=== PATIENT | female | born 1945 | race Caucasian/White ===

== ENCOUNTER → 2016-11-02 | Outpatient (CLI) | payer OTHER ==
[~2016-11-02] MED LIST: ALBUAER19 INH; ASPEC81 PO; ATOR-22 PO; BIMA0.01 OPB; BRIN1SUS OPB; CEPH500C2 PO; CFT250 PO; CHOL100010 PO; CHOL100027 PO; CYAN10005 PO; DICL-201 PO; ELQ25 PO; FRS/40 PO; FURO40TA3 PO; GFNSR600 PO; GLUC1TAB8 PO; LEVE500T13 PO; LEVO-371 PO; LSN20 PO; METO200T29 PO; OMEP20CA9 PO; POTA99TA PO; PRED10TA PO; RBTUDL5 PO; SDMC1 PO; TPRSR50 PO
== END | disposition home or self-care (01) ==
LOC: C.CTS 13:57
PROVIDERS: ATTEND Orthopaedic Surgery
DX: M25.511 Pain in right shoulder (principal); M19.011 Primary osteoarthritis, right shoulder

== ENCOUNTER 2016-12-13 09:24 | Inpatient (IN) | payer OTHER ==
[~2016-12-13] VITALS: Ht 154.9 cm; Wt 89.7 kg
[~2016-12-13 09:24] MED LIST changes: -ALBUAER19 INH; -BIMA0.01 OPB; -CFT250 PO; -CHOL100027 PO; -CYAN10005 PO; -ELQ25 PO; -FURO40TA3 PO; -GFNSR600 PO; -GLUC1TAB8 PO; -OMEP20CA9 PO; -PRED10TA PO; -RBTUDL5 PO; -SDMC1 PO; -TPRSR50 PO
[2016-12-13] MEDS ORDERED: DILTIAZEM BOLUS / DRIP IV STA ×2 (09:43→12:46)
--- NOTE | 2016-12-13 09:44 | EMERGENCY ROOM VISIT NOTE ---
History Report prepared by Grace: Hallie Enrique Under the Supervision of: Dr. Patty Correa D.O. First contact with patient: 09:31 Chief Complaint: CARDIAC ASSESSMENT Stated Complaint: NEW ONSET A-FIB History of Present Illness The patient is a 71 year old female who presents to the Emergency Room with complaints of persistent heart fluttering that began last evening. The patient states that she was at [facility] waiting to have her cholecystectomy. She states that she was properly prepped, but states that she was found to be in atrial fibrillation. The patient states that she had it once in the past when she was in the hospital, but states that she never heard anything of it again. She states that over the past week she has been feeling dizzy and lightheaded with leaning over and with exertion. The patient additionally states that she experienced heart burn yesterday that she alleviated with gautam seltzer. She states that she has experienced shortness of breath with exertion in recent weeks and that was part of why she had to be cleared by cardiology for surgery. The patient states that there is a family history of heart disease. She denies following with cardiology. The patient states that she recently had an echocardiogram. She denies any fever, cough, cold, abdominal pain, swelling in her lower extremities, urinary symptoms, or change in her bowel movements. Per review from the patient's records from [facility], the patient was seen by Dr. Marshall and had a Dobutamine stress test earilier this month that was negative. They also mention that the patient had a single episode of atrial fibrillation in 2014 in the setting of an acute illness. Source of History: patient Onset: last evening Position: other (heart) Quality: other (fluttering) Timing: other (persistent) Associated Symptoms: + SOB, No fevers, No cough, No abdominal pain, No urinary symptoms Note: Associated Symptoms: dizzy, lightheaded, heart burn Review of Systems See HPI for pertinent positives & negatives. A total of 10 systems reviewed and were otherwise negative. Past Medical & Surgical Medical Problems: (1) Atrial fibrillation (2) HTN (hypertension) (3) Pituitary adenoma (4) Seizure disorder (5) SIADH (syndrome of inappropriate ADH production) Surgical Problems: (1) H/O dilation and curettage (2) Hx of cataract surgery (3) S/P surgery on nasal septum (4) S/P tonsillectomy and adenoidectomy (5) S/P tubal ligation Family History Seizures Social History Smoking Status: Former Smoker Alcohol Use: none Drug Use: none Marital Status: Housing Status: lives with significant other Occupation Status: retired Current/Historical Medications Scheduled Aspirin (Aspirin EC Low Dose), 81 MG PO QAM Atorvastatin (Lipitor), 20 MG PO QAM Brinzolamide Oph (Azopt Oph), 1 DROP OPB BID Cholecalciferol (Vitamin D), 1 TAB PO QAM Diclofenac (Voltaren), 75 MG PO BID Levetiracetam (Keppra), 500 MG PO BID Levocetirizine Dihydrochloride (Xyzal), 1 TAB PO HS Lisinopril (Lisinopril), 20 MG PO QAM Metoprolol Succinate (Toprol Xl), 200 MG PO QAM Omeprazole (Prilosec), 20 MG PO DAILY Potassium (Potassium), 99 MG PO TID Scheduled PRN Furosemide (Lasix), 1 TAB PO DAILY PRN for edema Allergies Coded Allergies: Phenytoin (Verified Allergy, Intermediate, HIVES AND MOUTH ULCERS, 12/13/16 ) Dust (Verified Allergy, Mild, 12/13/16) Hydrochlorothiazide (Verified Allergy, Unknown, SEE COMMENT, 12/13/16) PT NOT SURE REACTION - PT PRINT OUT FROM [employer] REPORTS HYPONATREMIA Furosemide (Unverified Adverse Reaction, Intermediate, RASH, 12/13/16) developed erthyemaotu rash on face, back and legs: probably due to lasix as per dermatology PT CURRENTLY ON LASIX AND NO PROBLEMS WITH RASH Codeine (Verified Adverse Reaction, Mild, VOMITTING, 12/14/16) Sulfamethoxazole w/Trimethoprim (Unverified Adverse Reaction, Unknown, "FEELS LIKE KNIVES ARE IN MY HEAD", 12/13/16) Physical Exam Vital Signs Date Time Temp Pulse Resp B/P (MAP) Pulse Ox O2 Delivery O2 Flow Rate FiO2 12/13/16 11:37 65 143/110 12/13/16 10:36 59 16 131/53 97 Room Air 12/13/16 10:18 109 16 145/108 95 Room Air 12/13/16 09:30 98 Room Air 12/13/16 09:30 90 12/13/16 09:30 36.7 99 20 168/100 98 Room Air Physical Exam GENERAL: alert, well appearing, well nourished, no distress, non-toxic EYE EXAM: normal conjunctiva, PERRL and EOM's grossly intact OROPHARYNX: no exudate, no erythema, lips, buccal mucosa, and tongue normal and mucous membranes are moist NECK: supple, no nuchal rigidity, no adenopathy, non-tender LUNGS: Clear to auscultation. Normal chest wall mechanics HEART: Heart sounds are fast and irregular ABDOMEN: abdomen soft, non-tender, normo-active bowel sounds, no masses, no rebound or guarding. BACK: Back is symmetrical on inspection and there is no deformity, no midline tenderness, no CVA tenderness. SKIN: no rashes and no bruising UPPER EXTREMITIES: upper extremities are grossly normal. LOWER EXTREMITIES: No pitting edema. NEURO EXAM: Normal sensorium, cranial nerves II-XII grossly intact, normal speech, no gross weakness of arms, no gross weakness of legs. Medical Decision & Procedures ER Provider Diagnostic Interpretation: Radiology results have been interpreted by the radiologist and reviewed by me. CHEST ONE VIEW PORTABLE CLINICAL HISTORY: 71 years-old Female presenting with chest pain. TECHNIQUE: Portable upright AP view of the chest was obtained. COMPARISON: 11/02/2016. FINDINGS: Cardiomediastinal silhouette normal. Lungs and pleural spaces clear. Osseous structures normal. Upper abdomen normal. IMPRESSION: 1. No acute cardiopulmonary disease. Electronically signed by: Abdullahi Bar M.D. 12/13/2016 10:00 AM Dictated Date/Time: 12/13/2016 10:00 AM Laboratory Results Test 12/13/16 09:50 12/13/16 12:27 Neutrophils % (Manual) 48.7 % Lymphocytes % (Manual) 31.3 % Variant Lymphocytes % (manual) 13.0 % Monocytes % (Manual) 7.0 % Neutrophils # (Manual) 7.63 K/uL (1.4-6.5) Total Absolute Neutrophils 7.63 K/uL (1.4-6.5) Lymphocytes # (Manual) 4.90 K/uL (1.2-3.4) Absolute Variant Lymphocytes 2.04 K/uL Total Absolute Lymphocytes 6.94 K/uL (1.2-3.4) Monocytes # (Manual) 1.10 K/uL (0.11-0.59) Blood Smear Review Echinocytes 1+ Prothrombin Time 11.5 SECONDS (9.0-12.0) Prothromb Time International Ratio 1.1 (0.9-1.1) Magnesium Level 2.3 mg/dl (1.8-2.4) Total Bilirubin 1.2 mg/dl (0.2-1) Aspartate Amino Transf (AST/SGOT) 32 U/L (15-37) Alanine Aminotransferase (ALT/SGPT) 180 U/L (12-78) Alkaline Phosphatase 92 U/L (45-117) Pro-B-Type Natriuretic Peptide 5970 pg/ml (0-900) Total Protein 6.9 gm/dl (6.4-8.2) Albumin 3.5 gm/dl (3.4-5.0) Globulin 3.4 gm/dl (2.5-4.0) Albumin/Globulin Ratio 1.0 (0.9-2) Lipase 138 U/L (73-393) Thyroid Stimulating Hormone (TSH) 2.110 uIu/ml (0.300-4.500) Chemistry Specimen Hemolysis Lyme Disease IgG Antibody NEG (NEG) Lyme Disease IgM Antibody NEG (NEG) Urine Color YELLOW Urine Appearance CLOUDY (CLEAR) Urine pH 7.5 (4.5-7.5) Urine Specific Marlow 1.015 (1.000-1.030) Urine Protein NEG (NEG) Urine Glucose (UA) NEG (NEG) Urine Ketones NEG (NEG) Urine Occult Blood NEG (NEG) Urine Nitrite NEG (NEG) Urine Bilirubin NEG (NEG) Urine Urobilinogen NEG (NEG) Urine Leukocyte Esterase TRACE (NEG) Urine WBC (Auto) 1-5 /hpf (0-5) Urine RBC (Auto) 0-4 /hpf (0-4) Urine Hyaline Casts (Auto) 0 /lpf (0-5) Urine Epithelial Cells (Auto) >30 /lpf (0-5) Urine Bacteria (Auto) NEG (NEG) Laboratory results per my review. Medications Administered Medications (Trade) Dose Ordered Sig/Nellie Route Start Time Stop Time Status Last Admin Dose Admin Diltiazem HCl 125 mg/Dextrose 125 ml @ 0 mls/hr Q0M PRN IV 12/13/16 10:00 12/13/16 14:37 DC 12/13/16 10:16 5 MLS/HR Heparin Sodium/ Dextrose 1 ea NOW STAT N/A 12/13/16 11:35 12/13/16 11:36 DC 12/13/16 14:30 1 EA Heparin Sodium/ Dextrose (Heparin 25,000 Unit/500ml D5W) 25,000 unit STK-MED ONCE .ROUTE 12/13/16 12:16 12/13/16 12:17 DC 12/13/16 12:53 25,000 UNIT Heparin Sodium (Porcine) (Heparin Sq 5000 Unit/0.5ml) 5,000 unit STK-MED ONCE .ROUTE 12/13/16 12:16 12/13/16 12:17 DC 12/13/16 12:54 5,000 UNIT ECG Indication: other (atrial fibrillation) Rate (beats per minute): 96 Rhythm: atrial fibrillation Findings: PVC (occasional), T-wave inversion (lead 1, 2 AVF V2-V6), other ( normal QRS, normal QTC ) Comparison ECG Date: 11/02/16 Change: When compared to EKG done on 11/02/16 atrial fibrillation is new and T wave inversions are noted on the prior EKG. ED Course 0932: The patient was evaluated in room A3. A complete history and physical exam was performed. 1000: Ordered Diltiazem HCl 125 mg/Dextrose 125 ml @ 0 mls/hr Protocol IV. 1132: I discussed the patients case with Norma Hightower PA-C. She is going to evaluate the patient for further treatment. 1135: Ordered Heparin Sodium/Dextrose 1 ea NA. 1141: I reevaluated the patient and she is resting comfortably. I discussed the exam findings with her and I discussed the treatment plan. She verbalized complete understanding and agreement. She is going to be evaluated for further treatment. 1216: Ordered Heparin Sodium (Porcine) 5000 unit .route, Heparin Sodium/ Dextrose 96906 unit .route. Medical Decision Differential diagnosis: Etiologies such as premature contractions, electrolyte abnormality, cardiac dysrhythmia, thyroid dysfunction, pulmonary embolism, infection, gastrointestinal, as well as others were entertained. Pt well appearing from pre-op for elective outpt surgery with new onset a.fib with RVR. Pt minimally symptomatic, VS stable, started on cardizem drip and heparin drip. No obvious infectious etiology, leukocytosis possibly stress reaction. Discussed with hospitalist for additional evaluation. Records from recent pre-op cards clearance reviewed. Doubt vascular etiology, doubt perf, no evidence of acute thyroid dysfunction, doubt bacteremia/sepsis. Medication Reconcilliation Current Medication List: was personally reviewed by me Blood Pressure Screening Patient's blood pressure: Elevated blood pressure Blood pressure disposition: Elevated BP felt to be situational, Did not require urgent referral Consults Time Called: 1131 Consulting Physician: Norma Hightower PA-C Returned Call: 1132 I discussed the patients case with Norma Hightower PA-C. She is going to evaluate the patient for further treatment. Impression Primary Impression: New onset atrial fibrillation Additional Impressions: Elevated brain natriuretic peptide (BNP) level Leukocytosis Critical Care I have personally spent 35 minutes of critical care time in the direct management of this patient. This includes bedside care, interpretation of diagnostic studies, and testing, discussion with consultants, patient, and family members, and other required patient management activities. This 35 minutes is in excess of all separately billable procedures. Scribe Attestation The scribe's documentation has been prepared under my direction and personally reviewed by me in its entirety. I confirm that the note above accurately reflects all work, treatment, procedures, and medical decision making performed by me. Departure Information Dispostion Being Evaluated By Hospitalist Referrals Wilfredo Liang M.D. (PCP) Problem Qualifiers Additional Impressions: Leukocytosis Leukocytosis type: unspecified Qualified Codes: D72.829 - Elevated white blood cell count, unspecified
[2016-12-13] MEDS ORDERED: DILTIAZEM HCL INJ 125 MG in DEXTROSE 5% 100ML IV PRN ×2 (10:00→14:45)
--- NOTE | 2016-12-13 10:02 | DIAGNOSTIC IMAGING REPORT ---
CHEST ONE VIEW PORTABLE CLINICAL HISTORY: 71 years-old Female presenting with chest pain. TECHNIQUE: Portable upright AP view of the chest was obtained. COMPARISON: 11/02/2016. FINDINGS: Cardiomediastinal silhouette normal. Lungs and pleural spaces clear. Osseous structures normal. Upper abdomen normal. IMPRESSION: 1. No acute cardiopulmonary disease. Electronically signed by: Abdullahi Bar M.D. 12/13/2016 10:00 AM Dictated Date/Time: 12/13/2016 10:00 AM
[2016-12-13 10:13] LABS: HEMATOCRIT 40.8 % (37-47); MEAN CELL VOLUME 88.3 fL (80-100); MEAN CORPUSCULAR HEMOGLOBIN 29.7 pg (25-34); MEAN CORPUSCULAR HGB CONC 33.6 g/dl (32-36); MEAN PLATELET VOLUME 10.3 fL (7.4-10.4); PLATELET COUNT 307 K/uL (130-400); RED BLOOD COUNT 4.62 M/uL (4.2-5.4); WHITE BLOOD COUNT 15.67 K/uL (4.8-10.8)
[2016-12-13] MEDS ORDERED: OMEP20CA9 PO (10:23)
[2016-12-13 10:37] LABS: ALT/SGPT 180 U/L (12-78); AST/SGOT 32 U/L (15-37); BLOOD UREA NITROGEN 19 mg/dl (7-18); BUN/CREATININE RATIO 20.9 (10-20); CARBON DIOXIDE 28 mmol/L (21-32); CHLORIDE 106 mmol/L (98-107); GLUCOSE 88 mg/dl (70-99); MAGNESIUM 2.3 mg/dl (1.8-2.4); POTASSIUM 3.8 mmol/L (3.5-5.1); SODIUM 138 mmol/L (136-145)
[2016-12-13 10:43] LABS: ALKALINE PHOSPHATASE 92 U/L (45-117)
[2016-12-13 11:06] LABS: LYME DISEASE AB IGG NEG (NEG); LYME DISEASE AB IGM NEG (NEG)
[2016-12-13 11:07] LABS: COMPLETE YES; ECHINOCYTES 1+; LYMPHOCYTE % 31.3 %; NEUTROPHILS % 48.7 %; VARIANT LYM ABS # 2.04 K/uL
[2016-12-13] MEDS ORDERED: HEPARIN IV BOLUS 5,000 UNIT in SYRINGE 0 ML IV ONE (12:15)
[2016-12-13] MEDS ORDERED: HEPARIN 25,000 UNIT/500ML D5W 500 ML IV PRN ×2 (12:15→13:15)
[2016-12-13] MEDS ORDERED: HEPARIN 25000 UNIT/500 ML D5W ONE (12:16)
[2016-12-13] MEDS ORDERED: HEPARIN SOD 5000 UNIT/0.5 ML CARP ONE (12:16)
[2016-12-13 12:44] LABS: URINE APPEARANCE CLOUDY (CLEAR); URINE BILIRUBIN NEG (NEG); URINE COLOR YELLOW; URINE EPITHELIAL CELL AUTO >30 /lpf (0-5); URINE NITRITE NEG (NEG); URINE PH 7.5 (4.5-7.5); URINE SPECIFIC GRAVITY 1.015 (1.000-1.030); UROBILINOGEN NEG (NEG); ZZUR CULT IF INDIC CLEAN CATCH NO
[2016-12-13] MEDS ORDERED: ONDANSETRON INJ 2 MG/ML 2 ML VIAL IV PRN (12:45)
[2016-12-13] MEDS ORDERED: ACETAMINOPHEN 325 MG TAB PO PRN (12:45)
[2016-12-13 12:52] LABS: MANUAL MICROSCOPIC REQUIRED? NO; REVIEW REQ? NO; SULFASALICYLIC ACID NEG (NEG)
[2016-12-13] MEDS ORDERED: LEVO-371 PO (12:55)
[2016-12-13] MEDS ORDERED: FURO40TA3 PO (12:55)
[2016-12-13 13:43] LABS: INR 1.1 (0.9-1.1); PARTIAL THROMBOPLASTIN RATIO 0.9; PROTHROMBIN TIME (PATIENT) 11.5 SECONDS (9.0-12.0)
--- NOTE | 2016-12-13 14:38 | CARDIOLOGY CONSULTATION ---
DATE OF CONSULTATION: 12/13/2016 DATE OF CONSULTATION: 12/13/2016 REFERRING PHYSICIAN: Eva Spaulding. INDICATIONS: Atrial fibrillation. HISTORY OF PRESENT ILLNESS: The patient is a 71-year-old female with history of hypertension longstanding with hypertensive heart disease, history of asthmatic lung disease, mild chronic seizure disorder and seizure suppressive therapy, history of past pituitary adenoma status post resection in 2007, history of past atrial fibrillation in association with hospitalization in 2014 with marked hyponatremia with spontaneous conversion to sinus rhythm. The patient has recently been evaluated in the preoperative setting for planned both shoulder surgery and most recently due to symptomatic complaints cholecystectomy for cholelithiasis. Evaluation included dobutamine stress echocardiography on 12/09/2016 without stress induced ischemia with normal LV systolic function noted with mild aortic and moderate mitral and tricuspid insufficiency. The patient was referred when anticipated to undergo laparoscopic cholecystectomy today. On presentation to the [facility] patient was found to be in atrial fibrillation with elevated ventricular response rate, asymptomatically. She was subsequently referred to the Emergency Room for further evaluation. At time of presentation to the [facility] as well as ER presentation, the patient was asymptomatic unaware of atrial arrhythmias. She noted no recent decline chest pain, shortness of breath, tachypalpitations, syncope or near syncope. Notes no history of prior TIA or stroke. Only episode of atrial fibrillation as noted was in December 2014. She notes no bleeding difficulties. Notes no melena or hematochezia. Has been having postprandial abdominal pain and discomfort with resultant plans as noted. She notes no history of rheumatic fever, scarlet fever, renal or hepatic disease. Blood has been generally controlled. Only recent change is stress of preparing for procedure as noted. Overall has been feeling well. Notes no change in exercise capacity. Notes no claudication symptoms. ALLERGIES: NOTED TO BE BACTRIM, CODEINE, DILANTIN, HYDROCHLOROTHIAZIDE, MORPHINE. MEDICATIONS PRIOR TO HOSPITALIZATION: Omeprazole 20 mg p.o. daily, Voltaren p.r.n. pain 75 mg, atorvastatin 20 mg p.o. daily, metoprolol succinate 200 mg p.o. daily, Keppra 500 mg twice per day, lisinopril 40 mg q. day, aspirin 81 mg per day, vitamin D 1000 units q. day, potassium chloride one 99 mg tablet 3 times per day, Xyzal allergy tablets 5 mg daily, Azopt eyedrops. PAST SURGICAL HISTORY: Notable for prior cataract extraction, D&C, tubal ligation, past sinus surgeries, remote history of pituitary resection in 2007, remote tonsillectomy. FAMILY HISTORY: Not specifically notable for cardiac disease. SOCIAL HISTORY: The patient is a nonsmoker times greater than 20 years. Uses no alcoholic beverages. PHYSICAL EXAMINATION: GENERAL: The patient is an age appropriate female, currently in no acute distress. IV heparin and IV diltiazem are in place. VITAL SIGNS: Heart rate is 70s and 80s. HEAD, EYES, EARS, NOSE, AND THROAT EXAMINATION: Normocephalic, atraumatic. Nares without discharge. Throat was thick but no distinct abnormalities, no jugular venous distention. No carotid bruits. LUNGS: Clear to auscultation. CARDIOVASCULAR: Irregularly irregular with a grade 1/6 systolic murmur. There is no diastolic murmur. ABDOMEN: Obese, soft with minimal tenderness in the right upper quadrant. There is no rebound or guarding. EXTREMITIES: Without cyanosis or clubbing. There is no peripheral edema. NEUROLOGIC: The patient is answering questions, moving extremities with strength. DATA: EKG in the Emergency Room reveals atrial fibrillation with voltage criteria for left ventricular hypertrophy, rate 96. LABORATORY STUDIES: White cell count is 15.6, hemoglobin is 13.7, platelet count 307. Sodium is 138, potassium is 3.8, chloride is 106, bicarb is 28, BUN is 19, creatinine 0.9, bilirubin is 1.2, ALT is 180. BNP is elevated at 5970. TSH is 2.1. Chest x-ray reveals no infiltrate or edema. Dobutamine stress echocardiography performed on 12/09/2016 revealed adequate heart rate response and no stress induced ischemia of left ventricle hypertrophy changes. LV systolic function was normal with hyperdynamic function at stress and no wall motion abnormalities induced. There is sclerotic change of the aortic and mitral valve with mild aortic insufficiency, moderate mitral and tricuspid insufficiency. The peak tricuspid valve regurgitant velocity was 2.8 m/sec. IMPRESSION: A 71-year-old female with history of longstanding hypertension, hypertensive heart disease referred after found to be incidentally in atrial fibrillation on presentation for planned cholecystectomy. Heart rates are now better controlled with IV diltiazem. She is already on sizable dose of Toprol at 200 mg per day. PLAN: Continue admission as planned. Continue IV heparin until a.m. Will control heart rate with combination of oral Toprol and IV diltiazem until surgical procedure performed with planned cholecystectomy tomorrow. The patient does have a mildly elevated white cell count as well as elevated bilirubin and ALT. Will ultimately want to proceed with cholecystectomy as planned. Postoperatively, will decide on anticoagulant to be used long-term as well as medications for rate control depending on clinical tolerance. Potassium will be supplemented today. The patient in the past has spontaneously converted to sinus rhythm at last event. Will follow on telemetry in hospital. From a cardiac standpoint, there are no contraindications to proceeding with surgical plans as noted above. Recent stress testing negative for ischemia, heart rate well controlled and the patient asymptomatic. No signs or symptoms of heart failure despite elevated BNP. Will follow patient in the hospital.
--- NOTE | 2016-12-13 14:58 | Progress Note ---
Progress Note Date of Service Dec 13, 2016. Progress Note Please see chart for scanned consultation Patient was scheduled for elective cholecystectomy today at [facility] surgery [place] by Dr. Mark, she developed a-fib prior to the procedure and was transferred here for further evaluation. Cardiology has seen patient while in the emergency room. Plan is to place her on anticoagulation given a-fib. She has elevated white count at 15 and slight increase in total bilirubin at 1.2 and LFTS. Plan for cholecystectomy tomorrow afternoon prior to patient being started on flame channeler anticoagulation She will be bridged with IV Heparin until 6 hours pre-op She may have diet today, NPO after midnight. Dr. Mark has seen patient, agrees with above.
[2016-12-13] MEDS ORDERED: POTASSIUM CHLORIDE 20 MEQ TABCR PO ONE (15:00)
[2016-12-13] MEDS ORDERED: NURSING VERBAL MED ORDER ONE (15:15)
[2016-12-13 15:33] VITALS: BP 117/66; PULSE 89; TEMP 36.9; O2SAT 95
[2016-12-13] MEDS ORDERED: PIPERACILL/TAZOBAC CONSULT ACTIVE PRN (15:45)
[2016-12-13] MEDS ORDERED: PIPERACILL/TAZOBAC IV 3.375 GM in DEXTROSE 5% 100ML IV ONE (16:00)
[2016-12-13 17:14] VITALS: BP 143/73; PULSE 112; TEMP 36.8; O2SAT 98; Ht 154.9 cm; Wt 89.7 kg
--- NOTE | 2016-12-13 17:37 | Anesthesiology Progress Note ---
Anesthesia Progress Note Date of Service Dec 13, 2016. Progress Notes The patient is a 71 female scheduled for a lap cholecystectomy tomorrow due to cholelithiasis. She was initially scheduled to have the surgery at [facility] but was found to be in afib with RVR prior to undergoing the surgery. PMH includes afib that is currently rate controlled, Mod MR, Mod TR, HTN, GERD, remote seizure history, history of pituitary adenoma s/p resection, history of SIADH with hyponatremia, and obesity. She has no anesthesia problems and okay functional status. Her CXR shows NAD. Her EKG shows afib rate 96, PVCs, ST abnormalities, and prolong QT. Her recent stress echo showed normal LV wall motion to stress. Labs are significant for WBC 15.7, BNP 5970, and elevated bilirubin and ALT. On exam she has a MP 1 airway with good neck extension. Dentition is intact. Lungs are clear. Heart is irregular. Carotids are negative for bruits. The patient is currently on a Diltiazem gtt and heparin gtt. Dr. Coello saw the patient and states that she is okay for surgery from a cardiac standpoint. The patient was consented to general anesthesia. She was counseled to remain NPO after midnight except for sips of water with pills.
--- NOTE | 2016-12-13 17:44 | History and Physical ---
History & Physical Date & Time of Service: Dec 13, 2016 ~ 12:30 Chief Complaint: Atrial Fibrillation Primary Care Physician: Wilfredo Liang M.D. History of Present Illness 71 year old female who presents to the ER from outpatient surgery center at [facility] for evaluation of atrial fibrillation. Patient was scheduled for elective lap cholecystectomy today by Dr. Mark for cholelithiasis. When patient arrived to pre op, she was found to be in atrial fibrillation with rates in the 120s. She was then referred to the ER for further evaluation. Patient reports that aside from symptoms she has been having from her gallbladder, she has been feeling well. She notes chronic exertional shortness of breath over the past one year. She thinks she may have felt some mild palpitations last evening. She denies chest pain and chest pressure. She denies lightheadedness, dizziness, diaphoresis, or syncope. She reports occasional RUQ pain and reflux. No vomiting or diarrhea. She denies fever and chills. She denies any urinary symptoms. Upon arrival to the ER, patient's heart rate was in the 120s. She was placed on IV Cardizem with improvement in her heart rate. WBC 15K, otherwise labs are unremarkable. Past Medical/Surgical History Medical Problems: (1) Atrial fibrillation Status: Chronic (2) HTN (hypertension) Status: Chronic (3) Pituitary adenoma Permanent Comment: s/p resection 2007 Status: Chronic (4) Seizure disorder Status: Chronic (5) SIADH (syndrome of inappropriate ADH production) Status: Chronic Surgical Problems: (1) H/O dilation and curettage Status: Resolved (2) Hx of cataract surgery Status: Resolved (3) S/P surgery on nasal septum Status: Resolved (4) S/P tonsillectomy and adenoidectomy Status: Resolved (5) S/P tubal ligation Status: Resolved Social History Smoking Status: Former Smoker Alcohol Use: occasionally Immunizations History of Influenza Vaccine: Yes Influenza Vaccine Date: Jan 04, 2016 History of Tetanus Vaccine?: Yes Tetanus Immunization Date: Oct 31, 2016 History of Pneumococcal: Yes Pneumococcal Date: August 28, 2014 Multi-Drug Resistant Organisms History of MDRO: No Allergies Coded Allergies: Phenytoin (Verified Allergy, Intermediate, HIVES AND MOUTH ULCERS, 12/13/16 ) Codeine (Verified Allergy, Mild, VOMITTING, 12/13/16) Dust (Verified Allergy, Mild, 12/13/16) Hydrochlorothiazide (Verified Allergy, Unknown, SEE COMMENT, 12/13/16) PT NOT SURE REACTION - PT PRINT OUT FROM [facility] REPORTS HYPONATREMIA Furosemide (Unverified Adverse Reaction, Intermediate, RASH, 12/13/16) developed erthyemaotu rash on face, back and legs: probably due to lasix as per dermatology PT CURRENTLY ON LASIX AND NO PROBLEMS WITH RASH Sulfamethoxazole w/Trimethoprim (Unverified Adverse Reaction, Unknown, "FEELS LIKE KNIVES ARE IN MY HEAD", 12/13/16) Home Medications Scheduled Aspirin (Aspirin EC Low Dose), 81 MG PO QAM Atorvastatin (Lipitor), 20 MG PO QAM Brinzolamide Oph (Azopt Oph), 1 DROP OPB BID Cholecalciferol (Vitamin D), 1 TAB PO QAM Diclofenac (Voltaren), 75 MG PO BID Levetiracetam (Keppra), 500 MG PO BID Levocetirizine Dihydrochloride (Xyzal), 1 TAB PO HS Lisinopril (Lisinopril), 20 MG PO QAM Metoprolol Succinate (Toprol Xl), 200 MG PO QAM Omeprazole (Prilosec), 20 MG PO DAILY Potassium (Potassium), 99 MG PO TID Scheduled PRN Furosemide (Lasix), 1 TAB PO DAILY PRN for edema Review of Systems ROS per HPI, all other systems reviewed and negative Physical Exam Vital Signs Date Time Temp Pulse Resp B/P (MAP) Pulse Ox O2 Delivery O2 Flow Rate FiO2 12/13/16 12:57 73 16 118/63 12/13/16 11:37 65 143/110 12/13/16 10:36 59 16 131/53 97 Room Air 12/13/16 10:18 109 16 145/108 95 Room Air 12/13/16 09:30 98 Room Air 12/13/16 09:30 90 12/13/16 09:30 36.7 99 20 168/100 98 Room Air General Appearance: no apparent distress Head: normocephalic, atraumatic Eyes: normal inspection, sclerae normal ENT: hearing grossly normal Neck: supple, no JVD Respiratory/Chest: lungs clear, normal breath sounds, no respiratory distress Cardiovascular: no edema, normal peripheral pulses, + irregularly irregular ( rate controlled) Abdomen/GI: normal bowel sounds, non tender, soft Extremities/Musculoskelatal: normal inspection, no calf tenderness Neurologic/Psych: no motor/sensory deficits, alert, normal mood/affect, oriented x 3 Skin: normal color, warm/dry Diagnostics Laboratory Results Results Past 24 Hours Test 12/13/16 09:50 12/13/16 12:27 12/13/16 15:00 Range/Units White Blood Count 15.67 4.8-10.8 K/uL Red Blood Count 4.62 4.2-5.4 M/uL Hemoglobin 13.7 12.0-16.0 g/dL Hematocrit 40.8 37-47 % Mean Corpuscular Volume 88.3 80-100 fL Mean Corpuscular Hemoglobin 29.7 25-34 pg Mean Corpuscular Hemoglobin Concent 33.6 32-36 g/dl Platelet Count 307 130-400 K/uL Mean Platelet Volume 10.3 7.4-10.4 fL RDW Standard Deviation 48.0 36.4-46.3 fL RDW Coefficient of Variation 14.9 11.5-14.5 % Neutrophils % (Manual) 48.7 % Lymphocytes % (Manual) 31.3 % Variant Lymphocytes % (manual) 13.0 % Monocytes % (Manual) 7.0 % Neutrophils # (Manual) 7.63 1.4-6.5 K/uL Total Absolute Neutrophils 7.63 1.4-6.5 K/uL Lymphocytes # (Manual) 4.90 1.2-3.4 K/uL Absolute Variant Lymphocytes 2.04 K/uL Total Absolute Lymphocytes 6.94 1.2-3.4 K/uL Monocytes # (Manual) 1.10 0.11-0.59 K/uL Echinocytes 1+ Prothrombin Time 11.5 9.0-12.0 SECONDS Prothromb Time International Ratio 1.1 0.9-1.1 Activated Partial Thromboplast Time 23.7 21.0-31.0 SECONDS Partial Thromboplastin Ratio 0.9 Sodium Level 138 136-145 mmol/L Potassium Level 3.8 3.5-5.1 mmol/L Chloride Level 106 98-107 mmol/L Carbon Dioxide Level 28 21-32 mmol/L Anion Gap 4.0 3-11 mmol/L Blood Urea Nitrogen 19 7-18 mg/dl Creatinine 0.90 0.60-1.20 mg/dl Est Creatinine Clear Calc Drug Dose 59.8 ml/min Estimated GFR () 75.1 Estimated GFR (Non- 64.8 BUN/Creatinine Ratio 20.9 10-20 Random Glucose 88 70-99 mg/dl Calcium Level 9.0 8.5-10.1 mg/dl Magnesium Level 2.3 1.8-2.4 mg/dl Total Bilirubin 1.2 0.2-1 mg/dl Aspartate Amino Transf (AST/SGOT) 32 15-37 U/L Alanine Aminotransferase (ALT/SGPT) 180 12-78 U/L Alkaline Phosphatase 92 45-117 U/L Troponin I < 0.015 0-0.045 ng/ml Pro-B-Type Natriuretic Peptide 5970 0-900 pg/ml Total Protein 6.9 6.4-8.2 gm/dl Albumin 3.5 3.4-5.0 gm/dl Globulin 3.4 2.5-4.0 gm/dl Albumin/Globulin Ratio 1.0 0.9-2 Lipase 138 73-393 U/L Thyroid Stimulating Hormone (TSH) 2.110 0.300-4.500 uIu/ml Chemistry Specimen Hemolysis Lyme Disease IgG Antibody NEG NEG Lyme Disease IgM Antibody NEG NEG Urine Color YELLOW Urine Appearance CLOUDY CLEAR Urine pH 7.5 4.5-7.5 Urine Specific [place] 1.015 1.000-1.030 Urine Protein NEG NEG Urine Glucose (UA) NEG NEG Urine Ketones NEG NEG Urine Occult Blood NEG NEG Urine Nitrite NEG NEG Urine Bilirubin NEG NEG Urine Urobilinogen NEG NEG Urine Leukocyte Esterase TRACE NEG Urine WBC (Auto) 1-5 0-5 /hpf Urine RBC (Auto) 0-4 0-4 /hpf Urine Hyaline Casts (Auto) 0 0-5 /lpf Urine Epithelial Cells (Auto) >30 0-5 /lpf Urine Bacteria (Auto) NEG NEG Creatine Kinase MB Ratio 0-3.0 Diagnostic Radiology CXR IMPRESSION: 1. No acute cardiopulmonary disease. Impression Assessment and Plan ATRIAL FIBRILLATION - admit to tele - patient presented this morning for elective lap jolynn and in pre op was found to be in rapid atrial fibrillation - patient asymptomatic - hx of atrial fibrillation in 2014 in the setting of acute illness and electrolyte abnormalities - started on Cardizem gtt in ED with improvement in heart rate - will continue for now - heparin gtt started in the ED - will continue for now with eventual transition to Coumadin vs. NOAC - noted patient on metoprolol succinate 200mg - will hold for now until evaluated by cardiology - initial troponin negative, will continue to cycle - noted negative dobutamine stress on 12/09/16 - case discussed with Dr. Coello CHOLELITHIASIS - was scheduled for elective lap jolynn today - WBC 15K - will place empirically on Zosyn; not other sources of infection noted - do not suspect sepsis - case discussed with Dr. Mark - possible OR tomorrow if cleared by cardio HTN - BP controlled - currently on Cardizem gtt; holding metoprolol and lisinopril until evaluated by cardio SEIZURE DISORDER - continue Keppra HLD - continue statin DVT PROPHYLAXIS - on Heparin gtt DISPO - In my clinical judgment this beneficiary meets acute admission criteria, established by [facility], that includes being hospitalized through two midnights. I have seen and examined the patient and agree with the assessment and plan as stated. Ermias, DO Level of Care Telemetry Resuscitation Status FULL RESUSCITATION VTE Prophylaxis VTE Risk Assessment Done? Y/N: Yes Risk Level: Moderate Given or contraindicated: Other Anticoagulation
[2016-12-13 18:50] LABS: PARTIAL THROMBOPLASTIN RATIO 2.4
[2016-12-13 18:54] VITALS: BP 149/94; PULSE 93; TEMP 36.5; O2SAT 97
[2016-12-13] MEDS: BRINZOLAMIDE (AZOPT) OPS 10 ML BTL OPB SCH (20:11)
[2016-12-13] MEDS: METOPROLOL SUCC 50MG EXT REL TAB PO SCH (20:12)
[2016-12-13] MEDS: LEVETIRACETAM 500 MG TAB PO SCH (20:12)
[2016-12-13] MEDS: PIPERACILL/TAZOBAC IV 3.375 GM in DEXTROSE 5% 100ML IV SCH (21:05)
[2016-12-14] VITALS (11 sets, daily range): BP systolic 134–166; BP diastolic 75–92; PULSE 49–89; TEMP 36.2–36.8; O2SAT 90–98
[2016-12-14] MEDS: PIPERACILL/TAZOBAC IV 3.375 GM in DEXTROSE 5% 100ML IV SCH ×3 (05:43→21:53)
[2016-12-14 06:36] LABS: HEMATOCRIT 45.8 % (37-47); MEAN CELL VOLUME 89.6 fL (80-100); MEAN CORPUSCULAR HEMOGLOBIN 28.6 pg (25-34); MEAN CORPUSCULAR HGB CONC 31.9 g/dl (32-36); MEAN PLATELET VOLUME 10.2 fL (7.4-10.4); PLATELET COUNT 307 K/uL (130-400); RED BLOOD COUNT 5.11 M/uL (4.2-5.4); WHITE BLOOD COUNT 12.15 K/uL (4.8-10.8)
[2016-12-14] MEDS ORDERED: STOP HEPARIN DRIP ONE (07:00)
[2016-12-14 07:01] LABS: PARTIAL THROMBOPLASTIN RATIO 3.1
[2016-12-14 07:05] LABS: BUN/CREATININE RATIO 19.7 (10-20); CALCIUM 9.1 mg/dl (8.5-10.1); CREATININE 0.86 mg/dl (0.60-1.20); POTASSIUM 4.1 mmol/L (3.5-5.1)
[2016-12-14] MEDS: ASPIRIN 81 MG ECTAB PO SCH (07:30)
[2016-12-14] MEDS: METOPROLOL SUCC 50MG EXT REL TAB PO SCH (07:50)
[2016-12-14] MEDS: PANTOprazole SOD 40 MG TAB PO SCH (07:50)
[2016-12-14] MEDS: LEVETIRACETAM 500 MG TAB PO SCH ×2 (07:50→20:31)
[2016-12-14] MEDS: ATORVASTATIN 20 MG TAB PO SCH (07:50)
[2016-12-14] MEDS: BRINZOLAMIDE (AZOPT) OPS 10 ML BTL OPB SCH ×2 (07:50→20:31)
[2016-12-14] MEDS: CHOLECALCIFEROL 1000 INTER.UNIT TAB PO SCH (07:51)
--- NOTE | 2016-12-14 09:17 | Surgery Progress Note ---
Surgery Progress Note Date of Service Dec 14, 2016. Subjective Post OP Day: HD # 1 + feeling well, No complaints, No chest pain, No SOB, No nausea, No vomiting Objective Vital Signs: Date Time Temp Pulse Resp B/P (MAP) Pulse Ox O2 Delivery O2 Flow Rate FiO2 12/14/16 07:50 36.8 89 18 166/81 (109) 95 Room Air 12/14/16 04:00 Room Air 12/14/16 03:50 36.7 81 20 150/92 (111) 96 Room Air 12/14/16 00:00 36.8 89 19 138/81 (100) 96 Room Air 12/13/16 23:59 Room Air 12/13/16 20:00 Room Air 12/13/16 18:54 36.5 93 18 149/94 (112) 97 Room Air 12/13/16 17:14 36.8 112 20 143/73 98 Room Air 12/13/16 15:33 36.9 89 18 117/66 (83) 95 Room Air 12/13/16 12:57 73 16 118/63 12/13/16 11:37 65 143/110 12/13/16 10:36 59 16 131/53 97 Room Air 12/13/16 10:18 109 16 145/108 95 Room Air 12/13/16 09:30 98 Room Air 12/13/16 09:30 90 12/13/16 09:30 36.7 99 20 168/100 98 Room Air General Appearance: WD/WN, no apparent distress, + obese Head: normocephalic, atraumatic Neck: trachea midline Respiratory/Chest: lungs clear, normal breath sounds, no respiratory distress, no accessory muscle use Cardiovascular: no murmur, + irregularly irregular Abdomen: non tender, non distended, soft Laboratory Results: Results Past 24 Hours Test 12/13/16 09:50 12/13/16 12:27 12/13/16 15:00 12/13/16 15:16 Range/Units White Blood Count 15.67 4.8-10.8 K/uL Red Blood Count 4.62 4.2-5.4 M/uL Hemoglobin 13.7 12.0-16.0 g/dL Hematocrit 40.8 37-47 % Mean Corpuscular Volume 88.3 80-100 fL Mean Corpuscular Hemoglobin 29.7 25-34 pg Mean Corpuscular Hemoglobin Concent 33.6 32-36 g/dl Platelet Count 307 130-400 K/uL Mean Platelet Volume 10.3 7.4-10.4 fL RDW Standard Deviation 48.0 36.4-46.3 fL RDW Coefficient of Variation 14.9 11.5-14.5 % Neutrophils % (Manual) 48.7 % Lymphocytes % (Manual) 31.3 % Variant Lymphocytes % (manual) 13.0 % Monocytes % (Manual) 7.0 % Neutrophils # (Manual) 7.63 1.4-6.5 K/uL Total Absolute Neutrophils 7.63 1.4-6.5 K/uL Lymphocytes # (Manual) 4.90 1.2-3.4 K/uL Absolute Variant Lymphocytes 2.04 K/uL Total Absolute Lymphocytes 6.94 1.2-3.4 K/uL Monocytes # (Manual) 1.10 0.11-0.59 K/uL Blood Smear Review Echinocytes 1+ Prothrombin Time 11.5 9.0-12.0 SECONDS Prothromb Time International Ratio 1.1 0.9-1.1 Activated Partial Thromboplast Time 23.7 21.0-31.0 SECONDS Partial Thromboplastin Ratio 0.9 Sodium Level 138 136-145 mmol/L Potassium Level 3.8 3.5-5.1 mmol/L Chloride Level 106 98-107 mmol/L Carbon Dioxide Level 28 21-32 mmol/L Anion Gap 4.0 3-11 mmol/L Blood Urea Nitrogen 19 7-18 mg/dl Creatinine 0.90 0.60-1.20 mg/dl Est Creatinine Clear Calc Drug Dose 59.8 ml/min Estimated GFR () 75.1 Estimated GFR (Non- 64.8 BUN/Creatinine Ratio 20.9 10-20 Random Glucose 88 70-99 mg/dl Calcium Level 9.0 8.5-10.1 mg/dl Magnesium Level 2.3 1.8-2.4 mg/dl Total Bilirubin 1.2 0.2-1 mg/dl Aspartate Amino Transf (AST/SGOT) 32 15-37 U/L Alanine Aminotransferase (ALT/SGPT) 180 12-78 U/L Alkaline Phosphatase 92 45-117 U/L Troponin I < 0.015 < 0.015 0-0.045 ng/ml Pro-B-Type Natriuretic Peptide 5970 0-900 pg/ml Total Protein 6.9 6.4-8.2 gm/dl Albumin 3.5 3.4-5.0 gm/dl Globulin 3.4 2.5-4.0 gm/dl Albumin/Globulin Ratio 1.0 0.9-2 Lipase 138 73-393 U/L Thyroid Stimulating Hormone (TSH) 2.110 0.300-4.500 uIu/ml Chemistry Specimen Hemolysis Lyme Disease IgG Antibody NEG NEG Lyme Disease IgM Antibody NEG NEG Urine Color YELLOW Urine Appearance CLOUDY CLEAR Urine pH 7.5 4.5-7.5 Urine Specific [place] 1.015 1.000-1.030 Urine Protein NEG NEG Urine Glucose (UA) NEG NEG Urine Ketones NEG NEG Urine Occult Blood NEG NEG Urine Nitrite NEG NEG Urine Bilirubin NEG NEG Urine Urobilinogen NEG NEG Urine Leukocyte Esterase TRACE NEG Urine WBC (Auto) 1-5 0-5 /hpf Urine RBC (Auto) 0-4 0-4 /hpf Urine Hyaline Casts (Auto) 0 0-5 /lpf Urine Epithelial Cells (Auto) >30 0-5 /lpf Urine Bacteria (Auto) NEG NEG Creatine Kinase MB Ratio 0-3.0 Creatine Kinase MB 2.7 0.5-3.6 ng/ml Test 12/13/16 18:10 12/13/16 21:00 12/13/16 21:43 12/14/16 06:12 Range/Units Activated Partial Thromboplast Time 62.5 80.8 21.0-31.0 SECONDS Partial Thromboplastin Ratio 2.4 3.1 Creatine Kinase MB Ratio 0-3.0 Creatine Kinase MB 2.4 0.5-3.6 ng/ml Troponin I < 0.015 0-0.045 ng/ml White Blood Count 12.15 4.8-10.8 K/uL Red Blood Count 5.11 4.2-5.4 M/uL Hemoglobin 14.6 12.0-16.0 g/dL Hematocrit 45.8 37-47 % Mean Corpuscular Volume 89.6 80-100 fL Mean Corpuscular Hemoglobin 28.6 25-34 pg Mean Corpuscular Hemoglobin Concent 31.9 32-36 g/dl RDW Standard Deviation 48.8 36.4-46.3 fL RDW Coefficient of Variation 14.9 11.5-14.5 % Platelet Count 307 130-400 K/uL Mean Platelet Volume 10.2 7.4-10.4 fL Sodium Level 139 136-145 mmol/L Potassium Level 4.1 3.5-5.1 mmol/L Chloride Level 106 98-107 mmol/L Carbon Dioxide Level 25 21-32 mmol/L Anion Gap 8.0 3-11 mmol/L Blood Urea Nitrogen 17 7-18 mg/dl Creatinine 0.86 0.60-1.20 mg/dl Est Creatinine Clear Calc Drug Dose 62.1 ml/min Estimated GFR () 79.3 Estimated GFR (Non- 68.4 BUN/Creatinine Ratio 19.7 10-20 Random Glucose 104 70-99 mg/dl Calcium Level 9.1 8.5-10.1 mg/dl Assessment & Plan Cholelithiasis with possible cholecystitis - vitals stable, HR in the 80's still in afib - no abdominal pain - No chest pain or shortness of breath - leukocytosis improved 12k today (15k yesterday) Plan: Plan for Laparoscopic Cholecystectomy today by Dr. Mark, will obtain consent prior to procedure Keep pt NPO Continue current medical management
--- NOTE | 2016-12-14 09:38 | Anesthesiology Progress Note ---
Anesthesia Post Op Note Date & Time Dec 14, 2016 at 09:38 Vital Signs Pain Intensity: 0.0 Vital Signs Past 12 Hours Date Time Temp Pulse Resp B/P (MAP) Pulse Ox O2 Delivery O2 Flow Rate FiO2 12/14/16 07:50 36.8 89 18 166/81 (109) 95 Room Air 12/14/16 04:00 Room Air 12/14/16 03:50 36.7 81 20 150/92 (111) 96 Room Air 12/14/16 00:00 36.8 89 19 138/81 (100) 96 Room Air 12/13/16 23:59 Room Air Notes Mental Status: alert / awake / arousable, participated in evaluation Pt Amnestic to Procedure: Yes Nausea / Vomiting: adequately controlled Pain: adequately controlled Airway Patency, RR, SpO2: stable & adequate BP & HR: stable & adequate Hydration State: stable & adequate Anesthetic Complications: no major complications apparent
--- NOTE | 2016-12-14 10:13 | PROGRESS NOTE ---
DATE: 12/14/2016 INDICATIONS: Atrial fibrillation and planned preoperative evaluation. HISTORY OF PRESENT ILLNESS: The patient is a 71-year-old female admitted yesterday after found to be in atrial fibrillation after presentation for elective cholecystectomy. Although with elevated aminases she is asymptomatic overnight. Heart rate has been controlled with IV diltiazem and usual dose of Toprol. Anticipate cholecystectomy later today. Heparin has been administered last evening and was held this morning. SUBJECTIVE: The patient has no complaints other than minimal abdominal tenderness. OBJECTIVE: VITAL SIGNS: Heart rate is 89, blood pressure is 166/81. NECK: Thin. There is no jugular venous distention. No carotid bruits. LUNGS: Clear to auscultation. CARDIOVASCULAR: Irregularly irregular. There is no S3 gallop. ABDOMEN: Soft with minimal distention. EXTREMITIES: Without cyanosis or clubbing. There is no peripheral edema. LABORATORY DATA: Sodium is 139, potassium is 4.1, chloride is 106, bicarbonate 25, BUN 17, creatinine 0.86. Troponin x3 was less than 0.015. IMPRESSION: A 71-year-old female with anticipated cholecystectomy found to be in atrial fibrillation new onset atrial day prior. Single episode of prior atrial fibrillation, acute setting of acute illness 2 years past. Heart rates are now controlled with combination of metoprolol and IV diltiazem. We will continue perioperatively in anticipation of discontinuing diltiazem using alternate rate control therapies. Will initiate anticoagulation permanently post-surgical procedure. No contraindications to proceeding. Call with any questions. [id number]
--- NOTE | 2016-12-14 11:39 | Progress Note ---
Internal Med Progress Note Date of Service: Dec 14, 2016. Provider Documentation: SUBJECTIVE: Seen and examined at bedside. States feeling well. Planned for surgery today Denies chest pain, SOB, dizziness, palpitations Offers no complaints OBJECTIVE: Vital Signs-as noted below Physical Exam: General Appearance:Moderately built and nourished, no apparent distress Head: normocephalic, Atraumatic Eyes: normal inspection, EOMI, PERRL Neck: supple, Trachea midline Respiratory/Chest: Normal breath sounds, CTA Cardiovascular: Irregularly irregular, No murmur Abdomen/GI:Soft, Non tender, Bowel sounds present Extremities/Musculoskelatal:normal inspection, no edema Neurologic/Psych:grossly no focal neurological deficits Skin: normal color, warm Lab data as noted below. ASSESSMENT & PLAN: Atrial Fibrillation: Patient asymptomatic H/O A.fib in 2014 in setting of acute illness and electrolyte abnormalities Cardiac enzymes X2: Negative Negative dobutamine stress on 12/09/16 on IV Cardizem and Metoprolol for rate control Plan to start on oral anticoagulation post op when appropriate Appreciate Cardiology help Cholelithiasis with possible cholecystitis Leukocytosis improving Denies abdominal pain Continue Zosyn for now Planned for laparoscopic cholecystectomy today HTN Stable currently on Cardizem gtt; metoprolol, lisinopril Seizure Disorder: continue Keppra HLD continue statin DVT Px: Heparin ggt discontinued for surgery SCDs Disposition: Monitor in Telemetry Vital Signs: Date Time Temp Pulse Resp B/P (MAP) Pulse Ox O2 Delivery O2 Flow Rate FiO2 12/14/16 16:08 36.3 52 16 162/78 (106) 95 Nasal Cannula 2.0 12/14/16 15:55 36.3 55 16 153/68 93 Oxymask 2 12/14/16 15:45 54 16 165/64 93 Oxymask 2 12/14/16 15:35 56 16 163/68 95 Oxymask 5 12/14/16 15:25 56 16 183/72 95 Oxymask 5 12/14/16 15:17 36.0 59 16 194/80 93 Oxymask 10 12/14/16 12:03 Room Air 12/14/16 11:51 36.2 87 18 134/91 96 Room Air 12/14/16 11:25 36.2 87 23 134/91 (105) 98 Room Air 12/14/16 11:22 36.2 87 23 134/91 (105) 98 12/14/16 08:05 Room Air 12/14/16 07:50 36.8 89 18 166/81 (109) 95 Room Air 12/14/16 04:00 Room Air 12/14/16 03:50 36.7 81 20 150/92 (111) 96 Room Air 12/14/16 00:00 36.8 89 19 138/81 (100) 96 Room Air 12/13/16 23:59 Room Air 12/13/16 20:00 Room Air 12/13/16 18:54 36.5 93 18 149/94 (112) 97 Room Air Lab Results: Results Past 24 Hours Test 12/13/16 21:00 12/13/16 21:43 12/14/16 06:12 Range/Units Creatine Kinase MB Ratio 0-3.0 Creatine Kinase MB 2.4 0.5-3.6 ng/ml Troponin I < 0.015 0-0.045 ng/ml White Blood Count 12.15 4.8-10.8 K/uL Red Blood Count 5.11 4.2-5.4 M/uL Hemoglobin 14.6 12.0-16.0 g/dL Hematocrit 45.8 37-47 % Mean Corpuscular Volume 89.6 80-100 fL Mean Corpuscular Hemoglobin 28.6 25-34 pg Mean Corpuscular Hemoglobin Concent 31.9 32-36 g/dl RDW Standard Deviation 48.8 36.4-46.3 fL RDW Coefficient of Variation 14.9 11.5-14.5 % Platelet Count 307 130-400 K/uL Mean Platelet Volume 10.2 7.4-10.4 fL Activated Partial Thromboplast Time 80.8 21.0-31.0 SECONDS Partial Thromboplastin Ratio 3.1 Sodium Level 139 136-145 mmol/L Potassium Level 4.1 3.5-5.1 mmol/L Chloride Level 106 98-107 mmol/L Carbon Dioxide Level 25 21-32 mmol/L Anion Gap 8.0 3-11 mmol/L Blood Urea Nitrogen 17 7-18 mg/dl Creatinine 0.86 0.60-1.20 mg/dl Est Creatinine Clear Calc Drug Dose 62.1 ml/min Estimated GFR () 79.3 Estimated GFR (Non- 68.4 BUN/Creatinine Ratio 19.7 10-20 Random Glucose 104 70-99 mg/dl Calcium Level 9.1 8.5-10.1 mg/dl
[2016-12-14] MEDS ORDERED: OXYCODONE/ACETAMINOPHEN 5-325 TAB PO PRN ×2 (12:00→15:15)
--- NOTE | 2016-12-14 12:41 | History & Physical Bridge Note ---
H&P Re-Evaluation Bridge Note: I have examined the patient, reviewed the History & Physical and in the interval since the performance of the History & Physical I have noted the following changes of clinical significance: No changes noted
[2016-12-14] MEDS ORDERED: EpHEDrine SULFATE INJ 50 MG/ML AMP IV PRN (12:45)
[2016-12-14] MEDS ORDERED: ATROPINE SULFATE 0.1 MG/ML 5ML SYR IV PRN (12:45)
[2016-12-14] MEDS ORDERED: ONDANSETRON INJ 2 MG/ML 2 ML VIAL IV PRN (12:45)
[2016-12-14] MEDS ORDERED: PHENYLEPHRINE 100MCG/ML 5ML SYR IV PRN (12:45)
[2016-12-14] MEDS ORDERED: HYDROmorphone INJ 2 MG/ML SYR/VIAL IV PRN (12:45)
[2016-12-14] MEDS ORDERED: GLYCOPYRROLATE INJ 0.2 MG/ML VIAL ONE (12:47)
[2016-12-14] MEDS ORDERED: ONDANSETRON INJ 2 MG/ML 2 ML VIAL ONE (12:47)
[2016-12-14] MEDS ORDERED: PROPOFOL IV EMULSION 10 MG/ML 20 ML VIAL IV ONE (12:47)
[2016-12-14] MEDS ORDERED: MIDAZOLAM HCL 1 MG/ML 2ML VIAL ONE (12:47)
[2016-12-14] MEDS ORDERED: NEOSTIGMINE METHYLSULFATE 5 MG/5 ML SYR ONE ×2 (12:47→14:36)
[2016-12-14] MEDS ORDERED: DEXAMETHASONE SOD INJ 4 MG/ML VIAL ONE (12:47)
[2016-12-14] MEDS ORDERED: FENTANYL CITRATE INJ 50 MCG/1 ML 2 ML VIAL ONE (12:47)
[2016-12-14] MEDS ORDERED: CEFAZOLIN SOD 1 GM VIAL ONE (13:15)
[2016-12-14] MEDS ORDERED: CONRAY 60% 50 ML VIAL ONE (13:16)
[2016-12-14] MEDS ORDERED: HEPARIN SOD (PORCINE) 1000 UNIT/ML 10 ML VIAL ONE (13:16)
[2016-12-14] MEDS ORDERED: BUPIVACAINE 0.5 % 5 MG/1 ML MPF 30ML VIAL ONE (13:17)
[2016-12-14] MEDS ORDERED: EpHEDrine SULFATE 50MG/5ML SYR ONE (14:36)
[2016-12-14] MEDS ORDERED: VASOPRESSIN 20 UNIT/ML VIAL ONE (14:36)
[2016-12-14] MEDS ORDERED: ATROPINE SULFATE 0.4 MG/ML 1 ML VIAL ONE (14:36)
[2016-12-14] MEDS ORDERED: KETOROLAC TROMETHAMINE 30 MG/ML VIAL ONE (14:47)
--- NOTE | 2016-12-14 15:08 | [facility] Post Operative Brief Note ---
Immediate Operative Summary Operative Date Dec 14, 2016. Pre-Operative Diagnosis Chronic Cholecystitis and Cholelithiasis Post-Operative Diagnosis same as pre-operative Procedure(s) Performed Laparoscopic Cholecystectomy Surgeon Dr. Kushal Mark Finisher Machine Surgeon(s) Zora Lizarraga PA-C Estimated Blood Loss 10ml Findings See dictation Specimens A: Gallbladder and Contents Drains None Anesthesia General Complication(s) None Disposition Recovery Room / PACU
[2016-12-14] MEDS ORDERED: MoRPHine SULFATE 4 MG/ML 1 ML CARP\\VIAL IV PRN (15:15)
--- NOTE | 2016-12-14 15:54 | Anesthesiology Progress Note ---
Anesthesia Post Op Note Date & Time Dec 14, 2016 at 15:54 Vital Signs Pain Intensity: 0 Vital Signs Past 12 Hours Date Time Temp Pulse Resp B/P (MAP) Pulse Ox O2 Delivery O2 Flow Rate FiO2 12/14/16 15:45 54 16 165/64 93 Oxymask 2 12/14/16 15:35 56 16 163/68 95 Oxymask 5 12/14/16 15:25 56 16 183/72 95 Oxymask 5 12/14/16 15:17 36.0 59 16 194/80 93 Oxymask 10 12/14/16 12:03 Room Air 12/14/16 11:51 36.2 87 18 134/91 96 Room Air 12/14/16 11:25 36.2 87 23 134/91 (105) 98 Room Air 12/14/16 11:22 36.2 87 23 134/91 (105) 98 12/14/16 08:05 Room Air 12/14/16 07:50 36.8 89 18 166/81 (109) 95 Room Air 12/14/16 04:00 Room Air Notes Mental Status: alert / awake / arousable, participated in evaluation Pt Amnestic to Procedure: Yes Nausea / Vomiting: adequately controlled Pain: adequately controlled Airway Patency, RR, SpO2: stable & adequate BP & HR: stable & adequate Hydration State: stable & adequate Anesthetic Complications: no major complications apparent
--- NOTE | 2016-12-14 16:28 | OPERATIVE REPORT ---
DATE OF OPERATION: 12/13/2016 PREOPERATIVE DIAGNOSES: Cholelithiasis and chronic cholecystitis. POSTOPERATIVE DIAGNOSES: Same. PROCEDURE: Laparoscopic cholecystectomy. SURGEON: Dr. Kushal Mark. DATA SME: Zora Lizarraga PA-C FINDINGS: The gallbladder was full with multiple sand-like stones, measuring 1-2 mm each. There were adhesions of the omentum to the gallbladder. The cystic duct was narrow. The gallbladder was not dilated. The liver was of normal size and contour and the visible bowel appeared normal. TECHNIQUE: The patient was given a general anesthetic and the area was prepped and draped in the usual sterile fashion. Transverse incision was made below the umbilicus, carried down through the subcutaneous tissue to the fascia, which was grasped with 2 Roanl clamps and incised between. The peritoneum was identified, incised, and the introducer was placed bluntly. The abdomen was then insufflated to a pressure of 15 mmHg with carbon dioxide. The upper midline, midclavicular and anterior axillary introducers were placed under direct vision through small skin incisions. Traction was placed upward laterally on the gallbladder and the adhesions were taken down using blunt cautery or sharp dissection where appropriate. There were adhesions to the right lobe of the liver that were also taken down. Once those were freed, there were some flimsy adhesions over the infundibulum, which were taken down and I was then able to grab the infundibulum and opened the peritoneum on the lateral side and dissect the gallbladder away from the liver along the lateral side up towards the body. Further dissection was then carried out anterior to the infundibulum and into the triangle of Calot, which was opened. The gallbladder was dissected away from the liver on that side as well. That allowed for better mobility of the infundibulum and I was then able to identify the cystic duct and skeletonized it. I was able to establish a plane in the posterior side that allowed me to confidently identify the cystic duct-gallbladder junction. Three clips were placed on the proximal cystic duct and one near the junction with the gallbladder and it was divided. Further dissection was carried out posterior to that area and there was a large lymphatic in the cystic artery, which were easily isolated, individually clamped twice proximally and once near the gallbladder and divided. The gallbladder was then peeled off the liver bed using electrocautery. The gallbladder was placed into an Endobag and brought out through the upper midline incision. I had to open the gallbladder outside and remove the stones in order to extract the gallbladder within the bag, but that was accomplished. The introducer was replaced and the subdiaphragmatic and subhepatic spaces were irrigated and the irrigation was removed. This was repeated until the return was clear. The gallbladder bed of the liver was inspected. There were 2 areas of oozing that were easily controlled with cautery. Further irrigation was performed. This was inspected and there was no further bleeding. The previously placed clips were intact. The gas was allowed to escape and the introducers were removed. The fascia of the umbilical and upper midline introducer sites was closed with interrupted 0 Vicryl and skin of all the incisions was closed with 4-0 Monocryl in either an interrupted or running subcuticular fashion. The skin was anesthetized with 0.5% Marcaine. The skin was cleansed, dried, benzoin placed, and Steri-Strips applied. Estimated blood loss was 10 mL. Sponge, needle and instrument counts were correct prior to closure. The patient tolerated the surgical procedure without complication and was transferred to recovery. I attest to the content of the Intraoperative Record and any orders documented therein. Any exception s are noted below.
--- NOTE | 2016-12-14 16:45 | CARDIOLOGY PROGRESS NOTE ---
DATE: 12/14/2016 CARDIOLOGY CONSULTATION FOLLOWUP NOTE The patient was seen and examined post laparoscopic cholecystectomy. SUBJECTIVE: The patient is feeling well without complaint. Clinical course was relatively uneventful, although did lapse back into sinus rhythm during the procedure with transient bradycardia. IV diltiazem was discontinued and the procedure completed otherwise uneventfully. The patient now feels comfortable. Heart rate is in the 50s. Blood pressure is slightly higher at 162/78. She denies any chest pain or back pain. Abdominal discomfort stable. Abdominal incision site is without irritation or tenderness. Extremities are without edema. OBJECTIVE: Heart rate is 52. Blood pressure is as described. Telemetry reveals sinus bradycardia without pause or arrhythmia. IMPRESSION: A 71-year-old female with paroxysmal atrial fibrillation, now returned to sinus rhythm during intraoperative procedure. PLAN: We will hold Toprol this evening and restart in a.m. at prior to hospitalization dose at 200 mg per day. We will begin oral anticoagulation likely tomorrow postoperatively unless atrial fibrillation recurs. Diltiazem will be continued to be held and may restart at low dose if atrial fibrillation recurs.
[2016-12-14] MEDS ORDERED: LISINOPRIL 20 MG TAB PO ONE (17:15)
[2016-12-15] VITALS: BP 160/82; PULSE 61; TEMP 36.8; O2SAT 94
[2016-12-15 04:00] VITALS: BP 166/82; PULSE 76; TEMP 36.7; O2SAT 94
[2016-12-15] MEDS: PIPERACILL/TAZOBAC IV 3.375 GM in DEXTROSE 5% 100ML IV SCH (05:38)
[2016-12-15 07:02] LABS: BASO % 0.1 %; BASO ABS # 0.01 K/uL (0-0.2); COMPLETE YES; HEMATOCRIT 42.4 % (37-47); IG% 0.2 %; LYMPH ABS # 0.88 K/uL (1.2-3.4); MEAN CELL VOLUME 89.5 fL (80-100); MEAN CORPUSCULAR HEMOGLOBIN 28.3 pg (25-34); MEAN CORPUSCULAR HGB CONC 31.6 g/dl (32-36); MEAN PLATELET VOLUME 10.7 fL (7.4-10.4); MONO % 2.4 %; NEUT % 87.3 %; PLATELET COUNT 283 K/uL (130-400); RED BLOOD COUNT 4.74 M/uL (4.2-5.4); WHITE BLOOD COUNT 8.76 K/uL (4.8-10.8)
[2016-12-15 07:09] LABS: PARTIAL THROMBOPLASTIN RATIO 0.9
[2016-12-15 07:28] LABS: BUN/CREATININE RATIO 14.6 (10-20); CALCIUM 9.3 mg/dl (8.5-10.1); CREATININE 0.87 mg/dl (0.60-1.20); POTASSIUM 3.8 mmol/L (3.5-5.1)
[2016-12-15 07:32] VITALS: BP 178/84; PULSE 54; TEMP 36.4; O2SAT 95
[2016-12-15] MEDS: LEVETIRACETAM 500 MG TAB PO SCH (08:41)
[2016-12-15] MEDS: CHOLECALCIFEROL 1000 INTER.UNIT TAB PO SCH (08:41)
[2016-12-15] MEDS: ASPIRIN 81 MG ECTAB PO SCH (08:42)
[2016-12-15] MEDS: ATORVASTATIN 20 MG TAB PO SCH (08:42)
[2016-12-15] MEDS: PANTOprazole SOD 40 MG TAB PO SCH (08:43)
[2016-12-15] MEDS: BRINZOLAMIDE (AZOPT) OPS 10 ML BTL OPB SCH (08:45)
[2016-12-15] MEDS ORDERED: LISINOPRIL 20 MG TAB PO SCH (09:00)
[2016-12-15 09:17] VITALS: BP 165/90
--- NOTE | 2016-12-15 10:03 | Surgery Progress Note ---
Surgery Progress Note Date of Service Dec 15, 2016. Subjective Post OP Day: 1 + feeling well, + ambulating, + pain controlled, + diet (regular diet), No complaints, No chest pain, No SOB, No nausea, No vomiting Objective Vital Signs: Date Time Temp Pulse Resp B/P (MAP) Pulse Ox O2 Delivery O2 Flow Rate FiO2 12/15/16 09:17 165/90 (115) 12/15/16 08:00 Room Air 12/15/16 07:32 36.4 54 20 178/84 (115) 95 Room Air 12/15/16 04:00 36.7 76 18 166/82 (110) 94 Room Air 12/15/16 04:00 Room Air 12/15/16 00:00 36.8 61 18 160/82 (108) 94 Room Air 12/14/16 23:59 Room Air 12/14/16 20:00 Room Air 12/14/16 19:53 36.8 57 16 158/75 (102) 90 Room Air 12/14/16 17:00 60 144/80 (101) 12/14/16 16:40 49 157/77 (103) 12/14/16 16:25 53 166/79 (108) 92 Nasal Cannula 2.0 12/14/16 16:08 36.3 52 16 162/78 (106) 95 Nasal Cannula 2.0 12/14/16 16:00 Nasal Cannula 2.0 12/14/16 15:55 36.3 55 16 153/68 93 Oxymask 2 12/14/16 15:45 54 16 165/64 93 Oxymask 2 12/14/16 15:35 56 16 163/68 95 Oxymask 5 12/14/16 15:25 56 16 183/72 95 Oxymask 5 12/14/16 15:17 36.0 59 16 194/80 93 Oxymask 10 12/14/16 12:03 Room Air 12/14/16 11:51 36.2 87 18 134/91 96 Room Air 12/14/16 11:25 36.2 87 23 134/91 (105) 98 Room Air 12/14/16 11:22 36.2 87 23 134/91 (105) 98 General Appearance: no apparent distress, + obese Head: normocephalic, atraumatic Neck: trachea midline Respiratory/Chest: no respiratory distress, no accessory muscle use Abdomen: non tender, non distended, soft, no organomegaly, no pulsatile mass Incision(s): clean, dry, intact, no erythema, no drainage, findings (steri strips present and intact) Laboratory Results: Results Past 24 Hours Test 12/15/16 06:12 Range/Units White Blood Count 8.76 4.8-10.8 K/uL Red Blood Count 4.74 4.2-5.4 M/uL Hemoglobin 13.4 12.0-16.0 g/dL Hematocrit 42.4 37-47 % Mean Corpuscular Volume 89.5 80-100 fL Mean Corpuscular Hemoglobin 28.3 25-34 pg Mean Corpuscular Hemoglobin Concent 31.6 32-36 g/dl Platelet Count 283 130-400 K/uL Mean Platelet Volume 10.7 7.4-10.4 fL Neutrophils (%) (Auto) 87.3 % Lymphocytes (%) (Auto) 10.0 % Monocytes (%) (Auto) 2.4 % Eosinophils (%) (Auto) 0.0 % Basophils (%) (Auto) 0.1 % Neutrophils # (Auto) 7.64 1.4-6.5 K/uL Lymphocytes # (Auto) 0.88 1.2-3.4 K/uL Monocytes # (Auto) 0.21 0.11-0.59 K/uL Eosinophils # (Auto) 0.00 0-0.5 K/uL Basophils # (Auto) 0.01 0-0.2 K/uL RDW Standard Deviation 47.7 36.4-46.3 fL RDW Coefficient of Variation 14.5 11.5-14.5 % Immature Granulocyte % (Auto) 0.2 % Immature Granulocyte # (Auto) 0.02 0.00-0.02 K/uL Activated Partial Thromboplast Time 24.6 21.0-31.0 SECONDS Partial Thromboplastin Ratio 0.9 Sodium Level 135 136-145 mmol/L Potassium Level 3.8 3.5-5.1 mmol/L Chloride Level 102 98-107 mmol/L Carbon Dioxide Level 25 21-32 mmol/L Anion Gap 8.0 3-11 mmol/L Blood Urea Nitrogen 13 7-18 mg/dl Creatinine 0.87 0.60-1.20 mg/dl Est Creatinine Clear Calc Drug Dose 61.3 ml/min Estimated GFR () 78.2 Estimated GFR (Non- 67.5 BUN/Creatinine Ratio 14.6 10-20 Random Glucose 119 70-99 mg/dl Calcium Level 9.3 8.5-10.1 mg/dl Assessment & Plan POD # 1 s/p laparoscopic cholecystectomy -vitals stable, afebrile - no abdominal pain - no nausea or vomiting - urinating and ambulating without difficulty - leukocytosis resolved Plan: D/C iv antibiotics From surgical standpoint doing well and may be discharged home, instructions reviewed with patient continue current medical management
--- NOTE | 2016-12-15 10:09 | Discharge Instructions ---
Discharge Instructions Date of Service Dec 15, 2016. Admission Reason for Admission: Atrial Fibrillation Discharge Discharge Diagnosis / Problem: Cholelithiasis, Chronic Cholecystitis Discharge Goals Goal(s): Decrease discomfort, Improve function Activity Recommendations Activity Limitations: as noted below No heavy lifting over 20 pounds for 2 weeks No strenuous activity until cleared by surgeon walking and light activity is encouraged No submerging incisions underwater for 2 weeks (no bathing, swimming, or hot tubs) No driving while taking narcotic pain medication or until you are pain free . Instructions / Follow-Up Instructions / Follow-Up You may shower in 24 hours Leave steri strips on incisions for 7 days, they may fall off on their own that is okay You should have a follow up with Dr. Mark in 2 weeks, jules call office at [phone] if you do not already have an appointment You may take extra strength Tylenol or Ibuprofen as needed for pain. Do not take Tylenol with Percocet as it has Tylenol in it. Current Hospital Diet Patient's current hospital diet: Regular Diet Discharge Diet Recommended Diet: Regular Diet Procedures Procedures Performed: Laparoscopic Cholecystectomy Pending Studies Studies pending at discharge: yes List of pending studies: gallbladder pathology- will be reviewed at follow-up visit Medical Emergencies . Who to Call and When: Medical Emergencies: If at any time you feel your situation is an emergency, please call 911 immediately. . Non-Emergent Contact Non-Emergency issues call your: Primary Care Provider, Surgeon Call Non-Emergent contact if: you have a fever, temperature is above 101.5, your pain is not controlled, your pain is worsening, wound has increased drainage, wound has increased redness, wound has increased pain . "Provider Documentation" section prepared by Zora Lizarraga. . VTE Core Measure Inpt VTE Proph given/why not?: Other Anticoagulation (Heparin post op for atrial fibrillation), SCD's [place] Drug Monitoring Program Search Results: patient reviewed within database, no issues identified
[2016-12-15] MEDS ORDERED: METOPROLOL SUCC 50MG EXT REL TAB PO ONE (11:18)
--- NOTE | 2016-12-15 11:22 | Progress Note ---
Internal Med Progress Note Date of Service: Dec 15, 2016. Provider Documentation: SUBJECTIVE: Seen and examined at bedside. States feeling well Denies chest pain, SOB, dizziness, palpitations, abdominal pain Offers no complaints OBJECTIVE: Vital Signs-as noted below Physical Exam: General Appearance:Moderately built and nourished, no apparent distress Head: normocephalic, Atraumatic Eyes: normal inspection, EOMI, PERRL Neck: supple, Trachea midline Respiratory/Chest: Normal breath sounds, CTA Cardiovascular: Irregularly irregular, No murmur Abdomen/GI:Soft, Non tender, Bowel sounds present Extremities/Musculoskelatal:normal inspection, no edema Neurologic/Psych:grossly no focal neurological deficits Skin: normal color, warm Lab data as noted below. ASSESSMENT & PLAN: Atrial Fibrillation: Patient asymptomatic H/O A.fib in 2014 in setting of acute illness and electrolyte abnormalities Cardiac enzymes X2: Negative Negative dobutamine stress on 12/09/16 S/P IV Cardizem and Metoprolol for rate control Continue BB for rate control Plan to start Eliquis tomorrow Appreciate Cardiology help Cholelithiasis with possible cholecystitis S/P cholecystectomy POD #1 Leukocytosis resolved DC Zosyn Appreciate Surgery help HTN currently on Cardizem gtt; metoprolol, lisinopril Seizure Disorder: continue Keppra HLD continue statin DVT Px: Heparin ggt discontinued for surgery SCDs Disposition: Plan to discharge home today Follow up with on 12/22/16 at 2:45pm Follow up with your table tender sludge in 2 weeks as advised Follow up with your surgeon in 2 weeks, jules call office at for appointment Seek immediate medical attention if your symptoms reoccur or worsen Vital Signs: Date Time Temp Pulse Resp B/P (MAP) Pulse Ox O2 Delivery O2 Flow Rate FiO2 12/15/16 09:17 165/90 (115) 12/15/16 08:00 Room Air 12/15/16 07:32 36.4 54 20 178/84 (115) 95 Room Air 12/15/16 04:00 36.7 76 18 166/82 (110) 94 Room Air 12/15/16 04:00 Room Air 12/15/16 00:00 36.8 61 18 160/82 (108) 94 Room Air 12/14/16 23:59 Room Air 12/14/16 20:00 Room Air 12/14/16 19:53 36.8 57 16 158/75 (102) 90 Room Air 12/14/16 17:00 60 144/80 (101) 12/14/16 16:40 49 157/77 (103) 12/14/16 16:25 53 166/79 (108) 92 Nasal Cannula 2.0 12/14/16 16:08 36.3 52 16 162/78 (106) 95 Nasal Cannula 2.0 12/14/16 16:00 Nasal Cannula 2.0 12/14/16 15:55 36.3 55 16 153/68 93 Oxymask 2 12/14/16 15:45 54 16 165/64 93 Oxymask 2 12/14/16 15:35 56 16 163/68 95 Oxymask 5 12/14/16 15:25 56 16 183/72 95 Oxymask 5 12/14/16 15:17 36.0 59 16 194/80 93 Oxymask 10 12/14/16 12:03 Room Air 12/14/16 11:51 36.2 87 18 134/91 96 Room Air Lab Results: Results Past 24 Hours Test 12/15/16 06:12 Range/Units White Blood Count 8.76 4.8-10.8 K/uL Red Blood Count 4.74 4.2-5.4 M/uL Hemoglobin 13.4 12.0-16.0 g/dL Hematocrit 42.4 37-47 % Mean Corpuscular Volume 89.5 80-100 fL Mean Corpuscular Hemoglobin 28.3 25-34 pg Mean Corpuscular Hemoglobin Concent 31.6 32-36 g/dl Platelet Count 283 130-400 K/uL Mean Platelet Volume 10.7 7.4-10.4 fL Neutrophils (%) (Auto) 87.3 % Lymphocytes (%) (Auto) 10.0 % Monocytes (%) (Auto) 2.4 % Eosinophils (%) (Auto) 0.0 % Basophils (%) (Auto) 0.1 % Neutrophils # (Auto) 7.64 1.4-6.5 K/uL Lymphocytes # (Auto) 0.88 1.2-3.4 K/uL Monocytes # (Auto) 0.21 0.11-0.59 K/uL Eosinophils # (Auto) 0.00 0-0.5 K/uL Basophils # (Auto) 0.01 0-0.2 K/uL RDW Standard Deviation 47.7 36.4-46.3 fL RDW Coefficient of Variation 14.5 11.5-14.5 % Immature Granulocyte % (Auto) 0.2 % Immature Granulocyte # (Auto) 0.02 0.00-0.02 K/uL Activated Partial Thromboplast Time 24.6 21.0-31.0 SECONDS Partial Thromboplastin Ratio 0.9 Sodium Level 135 136-145 mmol/L Potassium Level 3.8 3.5-5.1 mmol/L Chloride Level 102 98-107 mmol/L Carbon Dioxide Level 25 21-32 mmol/L Anion Gap 8.0 3-11 mmol/L Blood Urea Nitrogen 13 7-18 mg/dl Creatinine 0.87 0.60-1.20 mg/dl Est Creatinine Clear Calc Drug Dose 61.3 ml/min Estimated GFR () 78.2 Estimated GFR (Non- 67.5 BUN/Creatinine Ratio 14.6 10-20 Random Glucose 119 70-99 mg/dl Calcium Level 9.3 8.5-10.1 mg/dl
[2016-12-15] MEDS ORDERED: ELQ25 PO (11:40)
[2016-12-15] MEDS ORDERED: TPRSR50 PO (11:40)
--- NOTE | 2016-12-15 11:41 | CARDIOLOGY PROGRESS NOTE ---
DATE: 12/15/2016 DATE: 12/15/2016 The patient seen and examined. Chart, medications, telemetry reviewed. SUBJECTIVE: The patient feels well this morning. Notes no abdominal pain or discomfort. Telemetry reveals no arrhythmias overnight. She has remained in sinus and sinus bradycardia. Notes no chest pains, tachypalpitations, syncope or near syncope. Anticipates discharge later today. OBJECTIVE: VITAL SIGNS: Heart rate is 72, blood pressure is 165/90. NECK: Thick, but there is no jugular venous distention. LUNGS: Clear. CARDIOVASCULAR EXAMINATION: Regular. There is no S3 gallop. ABDOMEN: Soft, nontender. Surgical sites are healing. EXTREMITIES: Without cyanosis or clubbing. There is no peripheral edema. IMPRESSION: A 71-year-old female admitted with issues as follows: 1. Cholelithiasis with symptomatic complaints referred and undergoing successful laparoscopic cholecystectomy. 2. Paroxysmal atrial fibrillation. The patient found to be in atrial fibrillation preoperatively, now back in sinus with spontaneous conversion. 3. Hypertension with hypertensive heart disease. RECOMMENDATIONS: We will continue current antihypertensive regimen with lisinopril 20 mg p.o. daily. Given bradyarrhythmias observed will reduce metoprolol succinate to 100 mg per day, though this may ultimately need to be titrated further. Anticoagulation will be initiated. She remains in sinus rhythm. She has had past paroxysms of atrial fibrillation. Will cautiously reinstitute anticoagulation, though using a target oriented anticoagulant with Eliquis 5 mg twice per day. The patient to began day post discharge, onset 12/16/2016. Followup arrangements will be made for the patient to be seen in the next 2-3 weeks' time.
--- NOTE | 2016-12-15 11:43 | Discharge Summary ---
Discharge Summary Date of Service Dec 15, 2016. Discharge Summary Admission Date: Dec 13, 2016 at 12:42 Discharge Date: Dec 15, 2016 Discharge Disposition: Home Principal Diagnosis: Atrial Fibrillation, S/P cholecystectomy Procedures: CXR: No acute cardiopulmonary disease. Consultations: Surgery, Cardiology Pending Studies/Follow-Up: Follow up with on 12/22/16 at 2:45pm Follow up with your business enterprise officer in 2 weeks as advised Follow up with your surgeon in 2 weeks, jules call office at for appointment Seek immediate medical attention if your symptoms reoccur or worsen Medication Reconciliation New Medications: Apixaban (Eliquis) 2.5 Mg Tab 5 MG PO BID for 30 Days, #120 TAB Metoprolol Succinate (Metoprolol Succinate ER) 50 Mg Tabcr 100 MG PO QAM for 30 Days, #60 EA Continued Medications: Aspirin (Aspirin EC Low Dose) 81 Mg Ectab 81 MG PO QAM for 30 Days Atorvastatin (Lipitor) 20 Mg Tab 20 MG PO QAM, TAB Brinzolamide Oph (Azopt Oph) 1 % Gali 1 DROP OPB BID, BTL Cholecalciferol (Vitamin D) 1,000 Unit Tab 1 TAB PO QAM Diclofenac (Voltaren) 75 Mg Tabcr 75 MG PO BID, TAB WITH FOOD Furosemide (Lasix) 40 Mg Tab 1 TAB PO DAILY PRN for edema for 30 Days, #30 TAB 5 Refills Levetiracetam (Keppra) 500 Mg Tab 500 MG PO BID, TAB Levocetirizine Dihydrochloride (Xyzal) 5 Mg Tab 1 TAB PO HS for 30 Days, TAB 5 Refills Lisinopril (Lisinopril) 20 Mg Tab 20 MG PO QAM for 30 Days, TAB Omeprazole (Prilosec) 20 Mg Cap 20 MG PO DAILY, #30 Potassium (Potassium) 99 Mg Tab 99 MG PO TID Discontinued Medications: Metoprolol Succinate (Toprol Xl) 200 Mg Tab 200 MG PO QAM, TAB Admission Information HPI (per Admitting provider): 71 year old female who presents to the ER from outpatient surgery center at [facility] for evaluation of atrial fibrillation. Patient was scheduled for elective lap cholecystectomy today by Dr. Mark for cholelithiasis. When patient arrived to pre op, she was found to be in atrial fibrillation with rates in the 120s. She was then referred to the ER for further evaluation. Patient reports that aside from symptoms she has been having from her gallbladder, she has been feeling well. She notes chronic exertional shortness of breath over the past one year. She thinks she may have felt some mild palpitations last evening. She denies chest pain and chest pressure. She denies lightheadedness, dizziness, diaphoresis, or syncope. She reports occasional RUQ pain and reflux. No vomiting or diarrhea. She denies fever and chills. She denies any urinary symptoms. Upon arrival to the ER, patient's heart rate was in the 120s. She was placed on IV Cardizem with improvement in her heart rate. WBC 15K, otherwise labs are unremarkable. Physical Exam (per Admitting): General Appearance: no apparent distress Head: normocephalic, atraumatic Eyes: normal inspection, sclerae normal ENT: hearing grossly normal Neck: supple, no JVD Respiratory/Chest: lungs clear, normal breath sounds, no respiratory distress Cardiovascular: no edema, normal peripheral pulses, + irregularly irregular (rate controlled) Abdomen/GI: normal bowel sounds, non tender, soft Extremities/Musculoskelatal: normal inspection, no calf tenderness Neurologic/Psych: no motor/sensory deficits, alert, normal mood/affect, oriented x 3 Skin: normal color, warm/dry Hospital Course Atrial Fibrillation: Patient asymptomatic H/O A.fib in 2015 in setting of acute illness and electrolyte abnormalities Cardiac enzymes X2: Negative Negative dobutamine stress on 12/09/16 S/P IV Cardizem and Metoprolol for rate control Continue BB for rate control Plan to start Eliquis tomorrow Appreciate Cardiology help Cholelithiasis with possible cholecystitis S/P cholecystectomy POD #1 Leukocytosis resolved DC Crissy Appreciate Surgery help HTN currently on Cardizem gtt; metoprolol, lisinopril Seizure Disorder: continue Keppra HLD continue statin DVT Px: Heparin ggt discontinued for surgery SCDs Disposition: Plan to discharge home today Follow up with on 12/22/16 at 2:45pm Follow up with your business enterprise officer in 2 weeks as advised Follow up with your surgeon in 2 weeks, jules call office at for appointment Seek immediate medical attention if your symptoms reoccur or worsen Total time spent on discharge = 32 minutes This includes examination of the patient, discharge planning, medication reconciliation, and communication with other providers. Discharge Instructions Discharge Instructions Date of Service Dec 15, 2016. Admission Reason for Admission: Atrial Fibrillation Discharge Discharge Diagnosis / Problem: Atrial Fibrillation, S/P cholecystectomy Discharge Goals Goal(s): Decrease discomfort, Improve function Activity Recommendations Activity Limitations: resume your previous activity Exercise/Sports Limitations: as tolerated . Instructions / Follow-Up Instructions / Follow-Up Follow up with on 12/22/16 at 2:45pm Follow up with your business enterprise officer in 2 weeks as advised Follow up with your surgeon in 2 weeks, jules call office at [phone] for appointment Seek immediate medical attention if your symptoms reoccur or worsen Current Hospital Diet Patient's current hospital diet: Regular Diet Discharge Diet Recommended Diet: Regular Diet Procedures Procedures Performed: Laparoscopic Cholecystectomy Pending Studies Studies pending at discharge: no Medical Emergencies . Who to Call and When: Medical Emergencies: If at any time you feel your situation is an emergency, please call 911 immediately. . Non-Emergent Contact Non-Emergency issues call your: Primary Care Provider, Gas Welder, Surgeon Call Non-Emergent contact if: you have a fever, your pain is not controlled, your pain is worsening, your pain is unusual for you, your pain is concerning you, wound has increased drainage, wound has increased redness, wound has increased pain, you have any medication questions . . "Provider Documentation" section prepared by Nafi Skelton. . VTE Core Measure Inpt VTE Proph given/why not?: Other Anticoagulation (Heparin post op for atrial fibrillation), SCD's
[2016-12-15 11:56] VITALS: BP 165/90; PULSE 54; TEMP 36.4; O2SAT 95
--- NOTE | 2016-12-15 13:13 | Anesthesiology Progress Note ---
Anesthesia Post Op Note Date & Time Dec 15, 2016 at 13:12 Vital Signs Pain Intensity: 0.0 Vital Signs Past 12 Hours Date Time Temp Pulse Resp B/P (MAP) Pulse Ox O2 Delivery O2 Flow Rate FiO2 12/15/16 11:56 36.4 54 20 95 Room Air 12/15/16 11:43 36.4 54 20 95 Room Air 12/15/16 09:17 165/90 (115) 12/15/16 08:00 Room Air 12/15/16 07:32 36.4 54 20 178/84 (115) 95 Room Air 12/15/16 04:00 36.7 76 18 166/82 (110) 94 Room Air 12/15/16 04:00 Room Air Notes Mental Status: alert / awake / arousable, participated in evaluation Pt Amnestic to Procedure: Yes Nausea / Vomiting: adequately controlled Pain: adequately controlled Airway Patency, RR, SpO2: stable & adequate BP & HR: stable & adequate Hydration State: stable & adequate Anesthetic Complications: no major complications apparent
[2016-12-16] MEDS ORDERED: APIXABAN 2.5 MG TAB PO SCH (09:00)
[2016-12-16] MEDS ORDERED: METOPROLOL SUCC 50MG EXT REL TAB PO SCH (09:00)
== END 2016-12-15 13:05 | disposition home or self-care (01) | DRG 988 ==
LOC: EDBD 09:24 → C.EDA 09:25 → C.2T 12:42 → ENRESERV 12:57
PROVIDERS: ADMIT Hospitalist; ATTEND Internal Medicine
PROC: 0FT44ZZ Resection of Gallbladder, Percutaneous Endoscopic Approach (ICD-10-PCS; principal; 2016-12-13)
DX: I48.0 Paroxysmal atrial fibrillation (principal); K80.10 Calculus of gallbladder with chronic cholecystitis without obstruction; E22.2 Syndrome of inappropriate secretion of antidiuretic hormone; I11.9 Hypertensive heart disease without heart failure; E78.5 Hyperlipidemia, unspecified; G40.909 Epilepsy, unspecified, not intractable, without status epilepticus; Z87.891 Personal history of nicotine dependence; Z79.82 Long term (current) use of aspirin

== ENCOUNTER 2018-07-30 08:13 | Inpatient (IN) ==
[2018-07-30] MEDS ORDERED: ACETAMINOPHEN 325 MG TAB PO PRN (09:50)
[2018-07-30] MEDS ORDERED: TRAZODONE HCL 50 MG TAB PO PRN (10:00)
[2018-07-30] MEDS ORDERED: TRAMADOL HCL 50 MG TABLET PO PRN (10:00)
[2018-07-30 10:47] LABS: Basophils # (auto) 0.01 K/uL (0-0.2); Basophils % (auto) 0.1 %; Eosinophils # (auto) 0.07 K/uL (0-0.5); Eosinophils % (auto) 0.4 %; Hematocrit (blood only) 47.1 % (37-47); Hemoglobin 15.6 g/dL (12.0-16.0); Immature Granulocytes % (auto) 0.5 %; Lymphocytes # (auto) 4.59 K/uL (1.2-3.4); Lymphocytes % (auto) 23.5 %; Mean Corpuscular Hgb Conc 33.1 g/dL (32-36); Mean Corpuscular Volume 92.5 fL (80-100); Mean Platelet Volume 10.2 fL (7.4-10.4); Monocytes % (auto) 6.2 %; Neutrophils # (auto) 13.53 K/uL (1.4-6.5); Neutrophils % (auto) 69.3 %; Nucleated RBC # (auto) 0.02 K/uL (0-0); Nucleated RBC % (auto) 0.1 %; Platelet Count 236 K/uL (130-400); RDW Coefficient of Variation 14.1 % (11.5-14.5); RDW Standard Deviation 47.7 fL (36.4-46.3); Red Blood Count 5.09 M/uL (4.2-5.4)
[2018-07-30 11:09] LABS: BUN Creatinine Ratio 25.4 (10-20); Calcium 9.1 mg/dl (8.5-10.1); Est GFR (African American) 54.5; Potassium 3.6 mmol/L (3.5-5.1)
[2018-07-30] MEDS: SOTALOL HCL 80 MG TAB PO SCH ×2 (11:14→21:56)
--- NOTE | 2018-07-30 12:55 | History and Physical Report ---
DATE OF ADMISSION: 07/30/2018 ADMITTING DIAGNOSIS: Atrial fibrillation with rapid ventricular response, planned initiation of antiarrhythmic therapy. HISTORY OF PRESENT ILLNESS: 1. The patient is a 73-year-old female who carries a history of paroxysmal atrial fibrillation. 2. Hypertension. 3. Past thyrotoxicosis. 4. Dyslipidemia. 5. Mitral and tricuspid insufficiency, moderate, chronic. 6. Degenerative joint disease, on chronic prednisone therapy. The patient presents after initial evaluation as an outpatient. She was found to have atrial fibrillation as a recurrent event with symptoms of increasing exertional fatigue and shortness of breath. Titration upward of beta taisha does not aid in heart rate control and event monitor performed as an outpatient demonstrated persistent atrial fibrillation with elevated ventricular response. Echocardiogram performed demonstrated normal left ventricular size, wall thickness, and function, EF 55% to 60% with mild aortic insufficiency, mild mitral and mild tricuspid insufficiency. She is referred now for antiarrhythmic therapy initiation with sotalol, attempts to control atrial arrhythmia, potential plans for return to sinus rhythm with cardioversion. FURTHER REVIEW OF SYSTEMS: The patient denies TIA or stroke. Notes no congestive heart failure symptoms. No signs of orthopnea, PND or peripheral edema. Notes no unexplained fevers or infections. Has chronic arthritic issues and is anticipating shoulder surgery in the future. Appetite and weight have been stable. Notes no bleeding difficulties. She has been chronically anticoagulated with apixaban. She denies headache or visual changes. Notes no dysphagia. REVIEW OF SYSTEMS: Otherwise negative with patient taking medications appropriately. ALLERGIES: NOTED TO BE TO BACTRIM, CODEINE, DILANTIN, HYDROCHLOROTHIAZIDE, MORPHINE AND POLLEN. PAST MEDICAL HISTORY: Notable for prior thyrotoxicosis, history of glaucoma, hypertension, seizure disorder initially diagnosed in 2005 on chronic suppressive therapy, history of past allergic rhinitis. PAST SURGICAL HISTORY: Notable for endonasal removal of pituitary adenoma in 2008, laparoscopic cholecystectomy in 2017, sinus surgery, tubal ligation, tonsillectomy, and nasal septal repair. FAMILY HISTORY: Not specifically notable for cardiac disease. SOCIAL HISTORY: The patient is a nonsmoker, nondrinker. She is active about her home. PHYSICAL EXAMINATION: GENERAL: The patient is a pleasant, moderately obese, age-appropriate female in no acute distress. VITAL SIGNS: Heart rate is 115, blood pressure is 128/64. HEENT: Normocephalic and atraumatic. Nares without discharge. Throat was clear. NECK: Supple without thyromegaly, lymphadenopathy, JVD. There are no carotid bruits. LUNGS: Clear. CARDIOVASCULAR: Irregularly irregular. There is no audible diastolic murmur. There is a grade 1/6 systolic murmur. There is no S3 gallop. ABDOMEN: Obese, soft, nontender. EXTREMITIES: Without cyanosis or clubbing. There is no peripheral edema. There are intact distal pulses. NEUROLOGIC: The patient is intact. DATA: EKG demonstrates atrial fibrillation with rapid ventricular response, rate [address] segment changes in lateral leads. IMPRESSION AND PLAN: The patient is a 73-year-old female with history of past paroxysmal atrial fibrillation with recent lapse into atrial fibrillation with elevated ventricular response rates despite aggressive medical therapies for rate control. She has undergone prior cardioversion in 2017. She presents now for initiation of antiarrhythmic therapy with sotalol, prescription has been given at 80 mg twice per day with planned telemetry and EKG followup, minimal 48 hours on telemetry. Possible planned synchronized electrical cardioversion this admission. The patient is agreeable to plan.
[2018-07-30] MEDS: APIXABAN 5 MG TABLET PO SCH (21:56)
[2018-07-30] MEDS: levETIRAcetam 500 MG TAB PO SCH (21:56)
[2018-07-31] MEDS: SOTALOL HCL 80 MG TAB PO SCH ×2 (08:06→20:37)
[2018-07-31] MEDS: ATORVASTATIN 20 MG TAB PO SCH (08:07)
[2018-07-31] MEDS: levETIRAcetam 500 MG TAB PO SCH ×2 (08:07→20:37)
[2018-07-31] MEDS: FUROSEMIDE 40 MG TAB PO SCH (08:07)
[2018-07-31] MEDS: APIXABAN 5 MG TABLET PO SCH ×2 (08:07→20:37)
[2018-07-31] MEDS: CHOLECALCIFEROL 1,000 UNITS TAB PO SCH (08:08)
[2018-07-31] MEDS: LISINOPRIL 10 MG TAB PO SCH (08:08)
[2018-07-31] MEDS: PANTOprazole 40 MG TAB PO SCH (08:08)
[2018-07-31] MEDS: predniSONE 20 MG TAB PO SCH (08:08)
[2018-07-31] MEDS ORDERED: NON-FORMULARY MEDICATION (Potassium 99 MG) PO SCH (09:00)
--- NOTE | 2018-07-31 09:26 | Cardiology Progress Note ---
Date of Service July 31, 2018 Assessment & Plan (1) Atrial fibrillation with rapid ventricular response: Patient begun on sotalol continue. Plans to keep n.p.o. after midnight tonight for potential cardioversion in a.m. will supplement potassium and magnesium today (2) Encounter for monitoring anti-arrhythmic therapy: Daily EKG (3) HTN (hypertension): Well-controlled Subjective Patient seen and examined, chart medications telemetry reviewed. No difficulties overnight. Has been urinating more frequently. Notes no dizziness or lightest syncope or near syncope. Remains in atrial fibrillation Physical Exam Vital Signs (Past 24 Hours): Last Vital Signs Temp 36.6 C 07/31/18 07:39 Pulse 82 07/31/18 07:39 Resp 19 07/31/18 07:39 BP 142/98 H 07/31/18 07:39 Pulse Ox 95 07/31/18 07:39 Constitutional: WD/WN, vitals as above Eyes: PERRL, conjunctivae normal, anicteric sclerae ENMT: external ear and nose normal, oropharynx normal Neck: trachea midline, no thyromegaly Respiratory: normal respiratory effort, lungs clear to auscultation Cardiovascular: Rate/Rhythm: + tachycardic and + irregularly irregular Heart Sounds: no gallop Vessels: normal carotid upstroke, femoral pulses present and radial pulses present; no JVD and no abdominal aortic bruit Extremities: no pedal edema Gastrointestinal (Abdomen): normal bowel sounds, soft, nontender, no hepatosplenomegaly Musculoskeletal: no cyanosis or clubbing, extremities motor strength 5/5 Results & Data Laboratory Results Laboratory Results - last 24 hr 07/30/18 07/30/18 10:29 10:29 WBC 19.50 H RBC 5.09 Hgb 15.6 Hct 47.1 H MCV 92.5 MCH 30.6 MCHC 33.1 RDW Std Deviation 47.7 H RDW Coeff of Allan 14.1 Plt Count 236 MPV 10.2 Immature Gran % (Auto) 0.5 Neut % (Auto) 69.3 Lymph % (Auto) 23.5 Elbert % (Auto) 6.2 Eos % (Auto) 0.4 Baso % (Auto) 0.1 Immature Gran # (Auto) 0.10 H Neut # (Auto) 13.53 H Lymph # (Auto) 4.59 H Elbert # (Auto) 1.20 H Eos # (Auto) 0.07 Baso # (Auto) 0.01 Absolute Nucleated RBC 0.02 H Nucleated RBC % (auto) 0.1 Sodium 136 Potassium 3.6 Chloride 101 Carbon Dioxide 31 Anion Gap 4.0 BUN 29 H Creatinine 1.16 Est Cr Clr Drug Dosing 40.0 Est GFR ( Amer) 54.5 Est GFR (Non-Af Amer) 47.0 BUN/Creatinine Ratio 25.4 H Glucose 85 Calcium 9.1
[2018-07-31] MEDS ORDERED: POTASSIUM CHLORIDE 10 MEQ TABCR PO STA (09:30)
[2018-07-31] MEDS: MAGNESIUM OXIDE 400 MG TAB PO SCH (10:35)
[2018-07-31 14:28] LABS: BUN Creatinine Ratio 21.4 (10-20); Calcium 9.3 mg/dl (8.5-10.1); Est GFR (African American) 42.3; Est GFR (Non-African American) 36.5; Potassium 4.1 mmol/L (3.5-5.1)
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
[2018-08-01] MEDS ORDERED: ATROPINE SULFATE 0.1 MG/ML 10ML SYR IV PRN (07:26)
[2018-08-01] MEDS ORDERED: ePHEDrine sulfate 50 MG/ML AMP IV PRN (07:26)
--- NOTE | 2018-08-01 07:42 | Cardioversion ---
Date of Service August 01, 2018 Electrical Cardioversion Rpt Electrical Cardioversion Report Patient was seen and examined. Procedure discussed and informed consent obtained. Patient was sedated via anesthesia consult and synchronized electrical cardioversion was performed using 150J, 175J, 200J, 300J, 300J with ul;timate conversion to sinus. Patient aroused tolerated well. EKG Sinus bradycardia with PAC rate 59bpm QTC 447 Plan continue sotalol
--- NOTE | 2018-08-01 07:42 | Anesthesiology Progress Note ---
Date of Service August 01, 2018 Anesthesia Post Procedure Vital Signs Vital Signs: Temp Pulse Resp BP Pulse Ox 08/01/18 04:12 36.5 C 94 H 18 143/78 H 97 08/01/18 00:11 36.5 C 71 18 130/82 95 07/31/18 19:16 36.7 C 118 H 18 100/62 95 07/31/18 15:05 36.6 C 112 H 18 106/64 96 07/31/18 11:22 36.4 C L 102 H 21 120/73 95 Notes Mental Status: alert / awake / arousable Patient Amnestic to Procedure: Yes Nausea / Vomiting: adequately controlled Pain: adequately controlled Airway Patency, RR, SpO2: stable & adequate BP & HR: stable & adequate Hydration State: stable & adequate Anesthetic Complications: no major complications apparent and Pt Satisfied with anesthetic care
[2018-08-01] MEDS: APIXABAN 5 MG TABLET PO SCH (08:16)
[2018-08-01] MEDS: levETIRAcetam 500 MG TAB PO SCH (08:16)
[2018-08-01] MEDS: FUROSEMIDE 40 MG TAB PO SCH (08:17)
[2018-08-01] MEDS: ATORVASTATIN 20 MG TAB PO SCH (08:17)
[2018-08-01] MEDS: PANTOprazole 40 MG TAB PO SCH (08:17)
[2018-08-01] MEDS: MAGNESIUM OXIDE 400 MG TAB PO SCH (08:18)
[2018-08-01] MEDS: predniSONE 20 MG TAB PO SCH (08:18)
[2018-08-01] MEDS: SOTALOL HCL 80 MG TAB PO SCH (08:18)
[2018-08-01] MEDS: CHOLECALCIFEROL 1,000 UNITS TAB PO SCH (08:18)
[2018-08-01] MEDS: LISINOPRIL 10 MG TAB PO SCH (08:18)
[2018-08-01] MEDS ORDERED: POTASSIUM CHLORIDE 10 MEQ TABCR PO SCH (09:00)
--- NOTE | 2018-08-01 12:32 | Cardiology Progress Note ---
Date of Service August 01, 2018 Assessment & Plan (1) Atrial fibrillation with rapid ventricular response: Patient begun on sotalol and underwent successful synchronized electrical cardioversion earlier today. We will anticipate discharge later this evening after p.m. dose of sotalol and EKG Follow-up with [facility] cardiology 2-3 weeks time patient report any return return of tachycardia (2) Encounter for monitoring anti-arrhythmic therapy: Daily EKG, no QT prolongation observed (3) HTN (hypertension): Well-controlled Will reduce prednisone dosing to 10 mg/day Discontinue aspirin at this time Subjective Patient seen and examined, chart medications telemetry reviewed. Underwent cardioversion without difficulty though did require multiple cardiov ersion to return to sinus rhythm. No arrhythmias since return No shortness of breath no edema Review of Systems Review of Systems: All systems reviewed & are unremarkable except as noted in HPI & below Physical Exam Constitutional: WD/WN, vitals as above Eyes: PERRL, conjunctivae normal, anicteric sclerae ENMT: external ear and nose normal, oropharynx normal Neck: trachea midline, no thyromegaly Respiratory: normal respiratory effort, lungs clear to auscultation Cardiovascular: Rate/Rhythm: regular rate and regular rhythm Heart Sounds: no gallop Vessels: normal carotid upstroke, femoral pulses present and radial pulses present; no JVD and no abdominal aortic bruit Extremities: no pedal edema Gastrointestinal (Abdomen): normal bowel sounds, soft, nontender, no hepatosplenomegaly Musculoskeletal: no cyanosis or clubbing, extremities motor strength 5/5 Results & Data Vital Signs (Past 12 Hours) Vital Signs Temp Pulse Pulse Resp BP BP Pulse Ox 08/01/18 11:25 36.9 C 57 L 18 129/80 97 08/01/18 08:27 36.5 C 60 17 164/86 H 98 08/01/18 08:15 63 08/01/18 04:12 36.5 C 94 H 18 143/78 H 97 Laboratory Results Laboratory Results - last 24 hr 07/31/18 13:48 Sodium 138 Potassium 4.1 Chloride 102 Carbon Dioxide 28 Anion Gap 8.0 BUN 31 H Creatinine 1.43 H Est Cr Clr Drug Dosing 32.0 Est GFR ( Amer) 42.3 Est GFR (Non-Af Amer) 36.5 BUN/Creatinine Ratio 21.4 H Glucose 128 H Calcium 9.3 ECG Additional Comments: Post cardioversion 17-APR-2019 07:38:40 [facility] Sinus bradycardia with Premature atrial complexes Nonspecific T wave abnormality Abnormal ECG When compared with ECG of 31-JUL-2018 09:54, Sinus rhythm has replaced Atrial fibrillation Vent. rate has decreased BY 62 BPM T wave inversion no longer evident in Inferior leads Nonspecific T wave abnormality has replaced inverted T waves in Anterolateral leads
--- NOTE | 2018-08-01 12:39 | Discharge Summary ---
Date of Service August 01, 2018 Admission HPI Per Admitting Provider Patient is a 73-year-old female with paroxysmal atrial fibrillation with recent lapsed into atrial fibrillation with elevated ventricular response rate. She has been appropriately anticoagulated with Eliquis and due to symptomatic complaints was referred for initiation of antiarrhythmic therapy with sotalol. Admission Exam (Per Admitting) Constitutional WD/WN, vitals as above Eyes PERRL, conjunctivae normal, anicteric sclerae ENMT external ear and nose normal, oropharynx normal Neck trachea midline, no thyromegaly Respiratory normal respiratory effort, lungs clear to auscultation Cardiovascular Rate/Rhythm: regular rate and regular rhythm Heart Sounds: no gallop Vessels: normal carotid upstroke, femoral pulses present and radial pulses present; no JVD and no abdominal aortic bruit Extremities: no pedal edema Gastrointestinal (Abdomen) normal bowel sounds, soft, nontender, no hepatosplenomegaly Musculoskeletal no cyanosis or clubbing, extremities motor strength 5/5 Discharge Data Consultations 08/01/18 07:30 Consult Anesthesiology Routine Procedures Performed Operation Date: 08/01/18 07:30 Actual Procedures p Cardioversion - Giorgi Coello MD Hospital Course (1) Atrial fibrillation with rapid ventricular response: Patient begun on sotalol and underwent successful synchronized electrical cardioversion on 08/01/2018 Discharged on sotalol. Metoprolol discontinued Prednisone reduced to 10 mg p.o. daily Anticoagulation with Eliquis continued, aspirin discontinued Follow-up to be scheduled in 2-3 weeks time through [facility] cardiology [facility] (2) Encounter for monitoring anti-arrhythmic therapy: Daily EKG, no QT prolongation observed (3) HTN (hypertension): Well-controlled Will reduce prednisone dosing to 10 mg/day Discontinue aspirin at this time
[2018-08-01 15:13] VITALS: BP 117/73; TEMP 98.2; O2SAT 96
[2018-08-01] MEDS ORDERED: SOTALOL HCL 80 MG TAB PO SCH ×2 (17:00)
[2018-08-01 17:10] VITALS: PULSE 112
== END 2018-08-01 18:25 | disposition home or self-care (01) | DRG 310 ==
LOC: 2S 08:54

== ENCOUNTER 2018-09-18 06:13 | Inpatient (IN) ==
[~2018-09-18 06:13] MED LIST changes: -ASPEC81 PO; -ATOR-22 PO; -BRIN1SUS OPB; +CEFAZOLIN 1000MG 1,000 MG/7.5 ML SYR IV SCH; +CEFAZOLIN 2000MG 2,000 MG/15 ML SYR IV SCH; -CEPH500C2 PO; -CHOL100010 PO; -DICL-201 PO; -FRS/40 PO; -LEVE500T13 PO; -LEVO-371 PO; +LR 15ML/HR IV SCH; -LSN20 PO; -METO200T29 PO; -POTA99TA PO
[2018-09-18] MEDS ORDERED: LIDOCAINE HCL 1% 20 ML VIAL ONE (07:26)
[2018-09-18] MEDS ORDERED: BACITRACIN INJ 50,000 UNIT VIAL ONE (07:26)
[2018-09-18] MEDS ORDERED: BUPIVACAINE 0.25% 30 ML VIAL ONE (07:26)
--- NOTE | 2018-09-18 07:56 | History & Physical Bridge Note ---
Date of Service September 18, 2018 History & Physical Bridge Note I have examined the patient, reviewed the History & Physical and in the interval since the performance of the History & Physical I have noted the following changes of clinical significance: no changes noted
[2018-09-18] MEDS ORDERED: MIDAZOLAM HCL 5 MG/ML 1 ML VIAL ONE (07:57)
[2018-09-18] MEDS ORDERED: fentaNYL citrate 100 MCG/2 ML VIAL ONE ×2 (07:57→08:41)
--- NOTE | 2018-09-18 07:57 | Pre Anesthesia Assessment ---
Date of Service September 18, 2018 Pre Sedation Assessment Vital Signs Temp Pulse Resp BP Pulse Ox 09/18/18 06:37 36.4 C L 102 H 22 123/82 98 Cardiovascular RRR, no murmur, no edema + bradycardic Respiratory normal respiratory effort, lungs clear to auscultation Pre-Sedation Airway Assessment Smoking Status: Former smoker Hx Sleep Apnea: No Hx Difficult Intubation: No Short, Thick Neck: No Thyromental Distance: < 3.5 Finger Breadths Oral Cavity: + WNL Mallampati Class: III ASA: ASA3 NPO Status Date of Last Intake of Fluids: 09/17/18 Date of Last Intake of Solid Food: 09/17/18 Procedure Planning Contraindications for Sedation: none Current Medications Reviewed: Yes Notes The planned sedation has been discussed with the patient. Informed Consent was obtained. I have identified the patient, determined the appropriateness of sedation and have assessed the patient immediately prior to the procedure. All medicine(s) and interventions are by my order.
[2018-09-18] MEDS ORDERED: MIDAZOLAM HCL 1 MG/ML 2ML VIAL ONE (08:42)
[2018-09-18] MEDS ORDERED: METOPROLOL TARTRATE 1 MG/ML VIAL IV ONE (08:54)
[2018-09-18] MEDS ORDERED: ACETAMINOPHEN 325 MG TAB PO PRN (09:22)
[2018-09-18] MEDS ORDERED: OXYCODONE/ACETAMINOPHEN 5mg/325mg TAB PO PRN (09:22)
--- NOTE | 2018-09-18 09:22 | Post Anesthesia Assessment ---
Date of Service September 18, 2018 Post Sedation Assessment Vital Signs Temp Pulse Pulse Resp BP Pulse Ox 09/18/18 08:56 125 H 09/18/18 06:37 36.4 C L 102 H 22 123/82 98 Recovery Score Activity: Moves 4 extremities Respiration: Deep Breath/Cough Circulation: +/-20% PreAnes Value Consciousness: Fully Awake Oxygen Saturation: > 92% On Room Air Discharge Sedation Level of Care: Fast Track Phase II Post Sedation Plan On clinical assessment, the patient appears to have tolerated the sedation without complications. Patient is recovering as anticipated. Patient will continue to be monitored by nursing and may be discharged when sedation discharge criteria are met per below protocol. Upon Completions of procedure and additional 15 minutes continue every 5 minute vital signs and the P.A.R. score; then discharge to a Phase I or Fast Track to Phase II per the following guidelines: * Discharge Patient to appropriate Phase II area if PAR is 8 or greater or return to pre- procedure baseline. The post - procedure orders will be as directed. * If PAR score is less than 8 or not return to pre-procedure baseline then patient will follow Phase I monitoring till PAR is reached for Phase II. The Phase I may be done in procedure room or may call to secure a Phase I area. * If naloxone or flumazenil are used for reversal, hold in Phase I for continued monitoring from when last reversal dose was given for a minimum of 60 minutes or longer pending the nurse and/or physician discretion of patient condition before discharge to Phase II. Please call the Sedation Physician to re-evaluate and complete post-note for discharge to Phase II area. Do NOT discharge from procedure sedation or Phase 1 until post- sedation evaluation note is complete by procedure /sedation MD Sedation Discharge Instructions to be given to the patient at discharge to home.
--- NOTE | 2018-09-18 09:22 | Operative Report ---
Post Operative Report Pre & Post Diagnosis TBS Operation Date: 09/18/18 08:30 <No data on this case meets the specified criteria> Procedure Operation Date: 09/18/18 08:30 Actual Procedures p Pacer with A/V Leads (Dual) - Natalie Adams DO s Venogram, Unilateral - Natalie Adams DO Surgeon Natalie Adams, Short Haul Driver none Estimated Blood Loss 15 Findings Consistent with Post-Op Diagnosis Specimens none Description of Procedure see official report I attest to the content of the Intraoperative Record and any orders documented therein. Any exceptions are noted below.
[2018-09-18] MEDS ORDERED: TRAZODONE HCL 50 MG TAB PO PRN (09:24)
[2018-09-18] MEDS ORDERED: TRAMADOL HCL 50 MG TABLET PO PRN (09:24)
[2018-09-18] MEDS ORDERED: SODIUM CHLORIDE 0.65% NA SOLN 45 ML (OCEAN) NAE PRN (09:24)
--- NOTE | 2018-09-18 09:37 | Discharge Summary ---
Date of Service September 18, 2018 Admission HPI +VALADEZ and generalized weakness Admission Exam Per Admitting Provider aaox3, NAD NC/AT, EOMI Supple No JVD irregular irregular S1/S2, No murmur CTA b/l no w/r/r soft nt/nd no LE edema b/l skin intact no focal deficits Principal Diagnosis Principal Diagnosis TBS s/p dual chamber pacemaker Discharge Exam aaox3, NAD NC/AT, EOMI Supple No JVD Nrl S1/S2, No murmur CTA b/l no w/r/r soft nt/nd no LE edema b/l skin intact no focal deficits left pectoral incision intact, no hematoma mild ecchymosis ENMT Mallampati Class: III Respiratory normal respiratory effort, lungs clear to auscultation Cardiovascular RRR, no murmur, no edema Rate/Rhythm: + bradycardic Discharge Data Allergies Allergy/AdvReac Type Severity Reaction Status Date / Time phenytoin Allergy Intermediate HIVES AND Verified 09/18/18 06:36 MOUTH ULCERS codeine AdvReac Mild VOMITTING Verified 09/18/18 06:36 Bactrim AdvReac Unknown "FEELS Verified 02/22/17 11:49 LIKE KNIVES ARE IN MY HEAD" hydrochlorothiazide AdvReac Unknown SEE COMMENT Verified 09/18/18 06:36 sulfamethoxazole AdvReac Unknown "FEELS Verified 09/18/18 06:36 LIKE KNIVES ARE IN MY HEAD" trimethoprim AdvReac Unknown "FEELS Verified 09/18/18 06:36 LIKE KNIVES ARE IN MY HEAD" Dust Allergy Mild SINUS Uncoded 09/18/18 06:36 INFECTIONS Procedures Performed Operation Date: 09/18/18 08:30 Actual Procedures p Pacer with A/V Leads (Dual) - Natalie Adams DO s Venogram, Unilateral - Natalie Adams DO Ordered Studies 09/18/18 06:45 EP Lab Images for PACS ONCE Hospital Course (1) Tachy-christopher syndrome: Total Time Total Time Spent Total Time Spent (In Minutes): 30 Total Time Includes: Examination of the Patient, Discharge Planning, Medication Reconciliation and Other Discharge Plan Discharge Items Reason For Visit: TBS Discharge Diagnosis: TBS s/p dual chamber permanent pacemaker, Medtronic Condition: Good Discharge Goals: Improve function Activity: As commented below Activity Comment: do not lift the left elbow over the left shoulder for 1 month Lifting: No more than 10 pounds Lifting Comment: do not lift more than 10 pounds with the left arm for 2 weeks Bathing: Keep incision dry Bathing Comment: can shower thurs 09/20 do not scrub the incision just let water run over it Sexual Activity: After two weeks Driving/Machine Use: Resume 1 day after discharge Call non-emergency contact if: you have any medication questions Follow-up/Referrals: Wilfredo Liang MD [Primary Care Provider] - [facility] Provider Instructions: device and wound check as scheduled next Monday at [facility] cardiology 09/28 if you notice any swelling call my office immediately Follow Up Visits: Close to cardiology follow-up is planned with the pacemaker check a week from now on 09/28/2018 at [facility], patient arrival time 11:45 AM. She also has a follow-up visit already planned with Dr. Coello on 10/30/2018,[facility], patient arrival time 2:15 PM. An EKG has already been ordered to be performed at the time of that visit for reassessment. The patient has repolarization abnormalities suggestive of underlying ischemia without any subjective symptoms to suggest ischemia. We will proceed with further risk stratification to include a combined low intensity exercise and pharmacologic nuclear stress test which is to be scheduled at [facility] in advance of the patient's follow-up visit with Dr. Coello. I have placed the order in her outpatient chart. Prescriptions: New metoprolol tartrate 50 mg Tablet 50 mg PO BID Qty: 60 RF: 0 sotalol 80 mg tablet 120 mg PO BID Qty: 180 RF: 1 Continued sodium chloride [Saline Nasal] 0.65 % Aerosol,[place] 2 spray INTRANASAL BID PRN (Reason: Nasal Congestion) RF: 0 fexofenadine [Lulu Allergy] 180 mg Tablet 180 mg PO DAILY RF: 0 furosemide 40 mg Tablet 40 mg PO QAM RF: 0 atorvastatin 20 mg Tablet 20 mg PO QAM RF: 0 trazodone 50 mg Tablet 50 mg PO HS PRN (Reason: Insomnia) RF: 0 levetiracetam 500 mg Tablet 500 mg PO BID RF: 0 Alrex 0.2 % Drops,Suspension 1 drp OPHTHALMIC (EYE) BID PRN (Reason: Itching) RF: 0 tramadol 50 mg Tablet 50 mg PO Q8H PRN (Reason: Pain) RF: 0 potassium 99 mg Tablet 99 mg PO QAM RF: 0 lisinopril 10 mg Tablet 10 mg PO QAM RF: 0 cholecalciferol (vitamin D3) [Vitamin D3] 1,000 unit Capsule 1,000 unit PO QAM RF: 0 omeprazole 20 mg Tablet,Delayed Release (Dr/Ec) 20 mg PO QAM RF: 0 Eliquis 5 mg Tablet 5 mg PO BID RF: 0 Simbrinza 1-0.2 % Drops,Suspension 1 drp OPHTHALMIC (EYE) BID RF: 0 prednisone 20 mg Tablet 10 mg PO QAM Qty: 0 RF: 0 Discontinued sotalol 80 mg tablet 80 mg PO BID RF: 0 metoprolol tartrate 25 mg Tablet 25 mg PO BID RF: 0 Stand-Alone Forms: [facility] Admission Data Admit Date/Time: 09/18/18 09:38 Attending Provider: Natalie Adams Admit Provider: Natalie Adams Primary Care Provider: Wilfredo Liang Other Providers: Clark Nava Service: Telemetry Medical Other Pending Studies at Discharge: No
[2018-09-18] MEDS ORDERED: SOTALOL HCL 80 MG TAB PO ONE (11:00)
[2018-09-18] MEDS: APIXABAN 5 MG TABLET PO SCH ×2 (11:21→18:54)
[2018-09-18] MEDS: METOPROLOL TARTRATE 25 MG TAB PO SCH (18:52)
[2018-09-18] MEDS: SOTALOL HCL 80 MG TAB PO SCH (18:53)
[2018-09-18] MEDS: levETIRAcetam 500 MG TAB PO SCH (18:54)
[2018-09-18] MEDS: SIMBRINZA OP SCH (18:55)
--- NOTE | 2018-09-18 19:51 | Operative Report ---
DATE OF OPERATION: 09/18/2018 PREOPERATIVE DIAGNOSIS: Tachybrady syndrome. POSTOPERATIVE DIAGNOSIS: Tachybrady syndrome. PROCEDURE: Dual chamber rate responsive permanent pacemaker under fluoroscopic guidance along with peripheral venogram. SURGEON: Natalie Adams DO. MOVING PICTURE PRODUCER: None. ANESTHESIA: Monitored conscious sedation administered under my supervision by Janeth Johnson. Start time 8:20, end time 9:10, total of 5 mg of Versed and 125 mcg of fentanyl. INTRAVENOUS FLUIDS: 45 mL. ADDITIONAL MEDICINES: IV Contrast 10 mL and 5 mg of Lopressor IV. URINE OUTPUT: None. SPECIMENS: None. FINDINGS: See below. DRAINS: None. ANTIBIOTICS: Two grams of Ancef. BLOOD LOSS: Less than 15 mL. INDICATIONS: This 73-year-old female with past medical history for persistent atrial fibrillation. She was started on sotalol in July of 2018 after a cardioversion, which took 5 shocks to convert her back to normal sinus, but her sotalol was only 40 twice a day because of bradycardia. She then had recurrent atrial fibrillation in August of 2018 where she underwent another cardioversion and this time her sotalol was increased to 80 twice a day; however, she did not hold for very long. Her CHADS2-VASc score is 4 and she is on Eliquis and metoprolol, hypertension, hyperlipidemia, prior history of thyrotoxicosis, osteoarthritis status post right total shoulder replacement due to have a left in the near future, mitral regurgitation, tricuspid regurgitation, and degenerative joint disease, on chronic prednisone. Due to the evidence of tachybrady syndrome, I recommended a pacemaker followed then by hopefully we can increase her sotalol and try to control her atrial fibrillation episodes a lot better. CONSENT: Consent obtained prior to the patient going into electrophysiology lab. The patient was informed of the risks, benefits and alternatives of procedure. Risks include but not limited to sudden cardiac , cardiac arrhythmias, cerebrovascular accident, myocardial infarction, injury to the blood vessels, chamber of the heart, lung, bleeding, and infection. The patient understood these risks and agreed to the procedure as planned. Informed consent was obtained.. DESCRIPTION OF PROCEDURE: The patient was brought into the electrophysiology lab in fasting state. She was connected to continuous quality assurance monitor final. A timeout was performed to ensure patient identity and procedure correctly. The patient was prepped and draped over the left infraclavicular space in normal surgical standard fashion. Monitored conscious sedation was given throughout the procedure for patient's comfort level. She received prophylactic antibiotics prior to incision. [place] precautions maintained throughout the procedure. 20 mL of 1% lidocaine, bupivacaine mixture were given in left deltopectoral groove. Incision was made in left deltopectoral groove. Blunt dissection was performed down to identify cephalic vein; however, I could not identify initially, so a peripheral venogram using 10 mL of IV contrast diluted in 10 mL of saline followed by 20 mL flush was performed. This did identify a cephalic vein; however, my incision was a little bit higher than it, so I opted to do an axillary venous stick which I did without any problems. The guidewire was inserted without any resistance. The 8-Bolivian sheath was inserted over the guidewire without any resistance. Dilator was removed and a second guidewire was inserted through the 8-Bolivian sheath to allow for retained venous access. The sheath was removed, flushed, dilator reinserted over it and it was reinserted over the guidewire. The guidewire and dilator was removed and the right ventricular lead was advanced into right ventricle and positioned in interatrial apex under fluoroscopic guidance. There was adequate pacing and sensing thresholds and no diaphragmatic stimulation in high output pacing. The 8-Bolivian sheath was peeled away and lead was fixated to pectoralis muscle using 0 silk suture. A second 8-Bolivian sheath was inserted over the retained guidewire without any resistance. Guidewire and dilator removed. The right atrial lead was then advanced into the right atrium and positioned into right atrial appendage under fluoroscopic guidance. There was adequate sensing of the fib waves. We did have a few capture beats so there was no diaphragmatic stimulation in high output pacing. The 8-Bolivian sheath was peeled away and lead was fixated to pectoralis muscle using 0 silk suture. A pacemaker pocket was created using blunt dissection over the pectoralis muscle within the pectoral fascia. The pocket was flushed with copious amount of bacitracin and saline wash and inspected for hemostasis. Pulse generator was then attached to the leads, making sure that the pins were in appropriate position, passed, set screws and set screws were all tightened. The pulse generator was then placed in the pocket, making sure that the leads were lying flat beneath the device. A stay stitch using 0 silk suture was used to secure the device to pectoralis muscle. Lionel stat was placed in the pocket as the patient is going back on her Eliquis. The incision was then closed in 3-layer fashion with 2-0 Vicryl interrupted suture, followed by 3-0 Vicryl suture, followed by 4-0 Monocryl running stitch, and Dermabond was applied. EQUIPMENT: 1. Pulse generator is a [employer]ke[employer] Susanna XT DR SANTANA DamiánStephanie [id number], serial [id number]. 2. Right atrial lead Medtronic 5076-52 cm, serial #[id number]. 3. Right ventricular lead, Medtronic 5076-58 cm, serial #[id number]. INTRAOPERATIVE TESTIN. Right atrial lead fib waves are 3.7 millivolts, impedance 913 ohms, no threshold testing as patient was in AFib. 2. Ventricular lead: R-wave 10.5 millivolts, impedance 723 ohms, threshold 0.3 volts at 0.3 milliamps. FINAL MEASUREMENTS THROUGH THE DEVICE: 1. Right atrial lead fib waves are 1.3 millivolts, impedance 750 ohms, no threshold testing as patient is in AFib. 2. Right ventricular lead: R-wave 9.8 millivolts, impedance 589 ohms, threshold 0.5 volts at 0.4 milliseconds. FINAL PARAMETERS: MVP-R 60/130. Right atrial amplitude 3.5 volts, pulse width 0.4 milliseconds, sensitivity 0.3 millivolts. Right ventricular amplitude 3.5 volts, pulse width 0.4 milliseconds, sensitivity 1.2 millivolts. IMPRESSION: Successful implantation of a dual chamber rate responsive permanent pacemaker under fluoroscopic guidance secondary to tachybrady syndrome. PLAN: Monitor patient on telemetry, give her a dose of Eliquis now, increase her sotalol to 160 mg twice a day. We will give her an extra dose today and extra 80 mg dose this morning. She is not allowed to lift left elbow or left shoulder for 1 month. She cannot lift more than 10 pounds with the left arm for 2 weeks. She can shower in 2 days, let water run over the incision, do not scrub it. She should follow up in our [facility] for device and wound check on Monday10/28/2018 and follow up with me in 1 month's time. I will keep her for a few days monitor her with daily EKGs for the increase in sotalol. I attest to the content of the Intraoperative Record and any orders documented therein. Any exceptions are noted below. CAM
--- NOTE | 2018-09-19 07:39 | XRay Report ---
XR chest 2V routine HISTORY: 73 years-old Female post implant status post placement of a left subclavian pacer device COMPARISON: Chest radiograph 08/02/2018 TECHNIQUE: PA and lateral views of the chest FINDINGS: Cardiac silhouette is mildly enlarged, unchanged. Calcification of the thoracic aortic arch. Status p ost placement of a left subclavian dual lead pacer with leads overlying the expected locations of the right atrium and right ventricle. Leads appear to be intact. No postprocedural pneumothorax identifi ed. No overt pulmonary edema Subsegmental bibasilar opacities are best noted on the lateral projectio n. Trace pleural effusions. Reverse right shoulder total joint arthroplasty. Degenerative changes of the left shoulder and spine. Cholecystectomy. IMPRESSION: 1. Status post placement of a left subclavian dual lead pacer. No postprocedural pneumothorax. 2. Cardiomegaly without overt pulmonary edema. 3. Trace pleural effusions with mild subsegmental bibasilar opacities. The above report was generated using voice recognition software. It may contain grammatical, syntax o r spelling errors. Electronically signed by: Arpan Singh M.D. 09/19/2018 7:37 AM
[2018-09-19] MEDS: SIMBRINZA OP SCH ×2 (08:15→20:27)
[2018-09-19] MEDS: FEXOFENADINE HCL 180 MG TAB PO SCH (08:17)
[2018-09-19] MEDS: FUROSEMIDE 40 MG TAB PO SCH (08:17)
[2018-09-19] MEDS: LISINOPRIL 10 MG TAB PO SCH (08:17)
[2018-09-19] MEDS: CHOLECALCIFEROL 1,000 UNITS TAB PO SCH (08:17)
[2018-09-19] MEDS: levETIRAcetam 500 MG TAB PO SCH ×2 (08:17→20:26)
[2018-09-19] MEDS: APIXABAN 5 MG TABLET PO SCH ×2 (08:17→20:26)
[2018-09-19] MEDS: METOPROLOL TARTRATE 25 MG TAB PO SCH (08:18)
[2018-09-19] MEDS: predniSONE 10 MG TABLET PO SCH (08:18)
[2018-09-19] MEDS: SOTALOL HCL 80 MG TAB PO SCH ×2 (08:18→20:26)
[2018-09-19] MEDS: PANTOprazole 40 MG TAB PO SCH (08:18)
[2018-09-19] MEDS: ATORVASTATIN 20 MG TAB PO SCH (08:18)
--- NOTE | 2018-09-19 08:27 | Cardiology Progress Note ---
Date of Service September 19, 2018 Assessment & Plan (1) Tachy-christopher syndrome: Subjective Pt feels generalized fatigue and tired Review of Systems Review of Systems: All systems reviewed & are unremarkable except as noted in HPI & below Physical Exam Physical Exam: aaox3, NAD NC/AT, EOMI Supple No JVD irregular irregular S1/S2, No murmur CTA b/l no w/r/r soft nt/nd no LE edema b/l skin intact no focal deficits left pectoral incision intact, no hematoma mild ecchymosis ENMT: Mallampati Class: III Respiratory: normal respiratory effort, lungs clear to auscultation Cardiovascular: RRR, no murmur, no edema Rate/Rhythm: + bradycardic Results & Data Vital Signs (Past 12 Hours) Medications reviewed Vital Signs Temp Pulse Pulse Resp BP Pulse Ox 09/19/18 07:36 36.4 C L 126 H 20 125/87 92 09/19/18 06:18 114 H 09/19/18 04:10 36.7 C 118 H 16 130/74 92 09/18/18 23:30 142 H 09/18/18 23:05 37 C 116 H 18 104/76 94 CXR: No PTX, leads in place ECG: AF Pacemaker Interrogation Today: Interpreted by myself today Normal lead function Pt remains in AF with RVR
[2018-09-19] MEDS ORDERED: METOPROLOL SUCC 25MG EXT REL TAB PO ONE (08:30)
[2018-09-19] MEDS ORDERED: NON-FORMULARY MEDICATION (Potassium 99 MG) PO SCH (09:00)
--- NOTE | 2018-09-19 10:58 | Cardiology Progress Note ---
Date of Service September 19, 2018 Assessment & Plan (1) Tachy-hcristopher syndrome: (2) Atrial fibrillation with rapid ventricular response: (3) Encounter for monitoring anti-arrhythmic therapy: (4) Pacemaker: CXR reveals no PTX, pacemaker leads in appropriate location. Pt in AF RVR, EKG with Ventricular rate in 130s, with ST depression in inferior and lateral leads-similar to prior tracing in July,. No symptoms to suggest angina. QTC stable in increased dose of sotalol. Start IV diltiazem for rate control. Pt missed 2-3 dosed of Eliquis prior to pacemaker. Eliquis resumed post procedure on 09/18. If DCCV necessary, would therefore require GIULIANA. Will remain in hospital, NPO after MN, possible GIULIANA CV am 09/20. Update labs, CBC, chem panel. Subjective CC: follow up AF, tachycardia bradycardia syndrome Subjective: Pt comfortable. Notes fatigue. No chest pain or symptoms to suggest angina. No subjective sensation that HR is racing. Physical Exam Constitutional: WD/WN, vitals as above Respiratory: normal respiratory effort, lungs clear to auscultation Cardiovascular: Rate/Rhythm: + tachycardic and + irregularly irregular Heart Sounds: no murmur Vessels: no JVD Extremities: no edema Chest (Breasts): Chest: + pacemaker Additional Comments: pacer pocket clean, dry, intact, no hematoma Gastrointestinal (Abdomen): normal bowel sounds, soft, nontender, no hepatosplenomegaly Neurologic: moves all extremities; no focal motor deficits Results & Data Vital Signs (Past 12 Hours) Vital Signs Temp Pulse Pulse Resp BP Pulse Ox 09/19/18 07:36 36.4 C L 126 H 20 125/87 92 09/19/18 06:18 114 H 09/19/18 04:10 36.7 C 118 H 16 130/74 92 09/18/18 23:30 142 H 09/18/18 23:05 37 C 116 H 18 104/76 94
[2018-09-19] MEDS ORDERED: dilTIAZem HCl 5 MG/ML 5 ML VIAL IV STA (11:11)
[2018-09-19] MEDS ORDERED: dilTIAZem HCl 125 MG in DEXTROSE 5% 100 ML IV SCH (11:15)
[2018-09-19 11:34] LABS: Basophils # (auto) 0.02 K/uL (0-0.2); Basophils % (auto) 0.2 %; Eosinophils # (auto) 0.13 K/uL (0-0.5); Eosinophils % (auto) 1.1 %; Hematocrit (blood only) 45.2 % (37-47); Hemoglobin 15.2 g/dL (12.0-16.0); Immature Granulocytes % (auto) 0.8 %; Lymphocytes # (auto) 1.16 K/uL (1.2-3.4); Lymphocytes % (auto) 9.8 %; Mean Corpuscular Hgb Conc 33.6 g/dL (32-36); Mean Corpuscular Volume 89.3 fL (80-100); Mean Platelet Volume 10.5 fL (7.4-10.4); Monocytes # (auto) 0.73 K/uL (0.11-0.59); Monocytes % (auto) 6.2 %; Neutrophils # (auto) 9.67 K/uL (1.4-6.5); Neutrophils % (auto) 81.9 %; Platelet Count 173 K/uL (130-400); RDW Coefficient of Variation 17.2 % (11.5-14.5); Red Blood Count 5.06 M/uL (4.2-5.4); White Blood Count 11.81 K/uL (4.8-10.8)
[2018-09-19 11:47] LABS: Albumin Level 2.8 gm/dl (3.4-5.0); BUN Creatinine Ratio 20.4 (10-20); Calcium 8.6 mg/dl (8.5-10.1); Creatinine Clr Calc Pharmacy 56.4 ml/min; Est GFR (African American) 80.5; Est GFR (Non-African American) 69.4; Potassium 4.2 mmol/L (3.5-5.1)
[2018-09-19 11:50] LABS: Albumin Globulin Ratio 0.9 (0.9-2); Bilirubin,Total 1.5 mg/dl (0.2-1); Total Protein 5.8 gm/dl (6.4-8.2)
--- NOTE | 2018-09-19 18:01 | Anesthesiology Consultation ---
Date of Service September 19, 2018 Assessment & Plan Chart Review Chart Review: Acceptable Risk for Surgery and Patient NOT seen in Pre Admission Testing Consults Requested none Proposed Anesthesia Anesthesia Type: MAC History Surgery Operation Date: 09/18/18 08:30 Proposed Procedures p Dual Pacemaker Insertion - Natalie Adams, DO Cardioversion 09/20/18 Height/Weight Height: 1.47 m Weight: 86.3 kg Allergies Allergy/AdvReac Type Severity Reaction Status Date / Time phenytoin Allergy Intermediate HIVES AND Verified 09/18/18 06:36 MOUTH ULCERS codeine AdvReac Mild VOMITTING Verified 09/18/18 06:36 Bactrim AdvReac Unknown "FEELS Verified 02/22/17 11:49 LIKE KNIVES ARE IN MY HEAD" hydrochlorothiazide AdvReac Unknown SEE COMMENT Verified 09/18/18 06:36 sulfamethoxazole AdvReac Unknown "FEELS Verified 09/18/18 06:36 LIKE KNIVES ARE IN MY HEAD" trimethoprim AdvReac Unknown "FEELS Verified 09/18/18 06:36 LIKE KNIVES ARE IN MY HEAD" Dust Allergy Mild SINUS Uncoded 09/18/18 06:36 INFECTIONS Medications Home Medications Medication Instructions Recorded Confirmed Last Taken Alrex 1 drp OPHTHALMIC (EYE) BID PRN 06/15/18 09/18/18 08/02/18 06:00 Eliquis 5 mg PO BID 06/15/18 09/18/18 09/16/18 06:30 Simbrinza 1 drp OPHTHALMIC (EYE) BID 06/15/18 09/18/18 09/17/18 14:00 atorvastatin 20 mg PO QAM 06/15/18 09/18/18 09/18/18 05:30 cholecalciferol (vitamin D3) 1,000 unit PO QAM 06/15/18 09/18/18 09/18/18 05:30 [Vitamin D3] furosemide 40 mg PO QAM 06/15/18 09/18/18 09/17/18 06:30 levetiracetam 500 mg PO BID 06/15/18 09/18/18 09/18/18 05:30 lisinopril 10 mg PO QAM 06/15/18 09/18/18 09/18/18 05:30 omeprazole 20 mg PO QAM 06/15/18 09/18/18 09/18/18 05:30 potassium 99 mg PO QAM 06/15/18 09/18/18 09/18/18 05:30 tramadol 50 mg PO Q8H PRN 06/15/18 09/18/18 09/17/18 06:30 trazodone 50 mg PO HS PRN 06/15/18 09/18/18 07/29/18 20:00 prednisone 10 mg PO QAM #0 tab 08/01/18 09/18/18 09/17/18 06:30 sodium chloride [Saline Nasal] 2 spray INTRANASAL BID PRN 08/02/18 09/18/18 Unknown sotalol 80 mg PO BID 08/02/18 09/18/18 09/18/18 05:30 fexofenadine [Lulu Allergy] 180 mg PO DAILY 09/18/18 09/18/18 09/18/18 05:30 metoprolol tartrate 25 mg PO BID 09/18/18 09/18/18 09/18/18 05:30 sotalol 160 mg PO BID #60 tab 09/18/18 Unknown Active Medications Generic Name Dose Route Start Last Admin Trade Name Freq PRN Reason Stop Dose Admin Apixaban 5 mg 09/18/18 11:00 09/19/18 08:17 Eliquis PO 10/18/18 10:59 5 mg BID ELENO Administration Atorvastatin Calcium 20 mg 09/19/18 09:00 09/19/18 08:18 Lipitor PO 10/19/18 08:59 20 mg QAM ELENO Administration Fexofenadine HCl 180 mg 09/19/18 09:00 09/19/18 08:17 Lulu PO 10/19/18 08:59 180 mg DAILY ELENO Administration Furosemide 40 mg 09/19/18 09:00 09/19/18 08:17 Lasix PO 10/19/18 08:59 40 mg QAM ELENO Administration Levetiracetam 500 mg 09/18/18 21:00 09/19/18 08:17 Keppra PO 10/18/18 20:59 500 mg BID ELENO Administration Lisinopril 10 mg 09/19/18 09:00 09/19/18 08:17 Zestril PO 10/19/18 08:59 10 mg QAM ELENO Administration Miscellaneous 1 ea 09/18/18 16:00 09/19/18 17:51 Order Awaiting Action N/A 10/18/18 15:59 Not Given QS ELENO Simsarkisinza Non- 1 ea 09/18/18 21:00 09/19/18 08:15 Formulary Patient's OP 10/18/18 20:59 1 drops Own Med BID ELENO Administration Oxycodone/Acetaminophen 1 - 2 tab 09/18/18 09:22 09/18/18 19:00 Percocet 5mg/325mg PO 10/02/18 09:21 1 tab Q6H PRN Administration Moderate-Severe Pain Pantoprazole Sodium 40 mg 09/19/18 09:00 09/19/18 08:18 Protonix PO 10/19/18 08:59 40 mg QAM ELENO Administration Protocol Prednisone 10 mg 09/19/18 09:00 09/19/18 08:18 Prednisone PO 10/19/18 08:59 10 mg QAM ELENO Administration Sotalol HCl 160 mg 09/18/18 21:00 09/19/18 08:18 Betapace PO 10/18/18 20:59 160 mg BID ELENO Administration Vitamin D 1,000 units 09/19/18 09:00 09/19/18 08:17 Vitamin D3 PO 10/19/18 08:59 1,000 units QAM ELENO Administration NPO Date Last Intake of Fluids: 09/17/18 Time Last Intake of Fluids: 22:00 Last Intake of Fluids Comment: sip of water 0530 w/meds Date Last Intake of Solids: 09/17/18 Time Last Intake of Solids: 17:00 Past Medical History Medical History Atrial fibrillation ON ELIQUIS Chronic sinusitis GERD (gastroesophageal reflux disease) Glaucoma Hyperlipidemia Hypertension Neuropathy Osteoarthritis Seizure X 1 EPISODE (2005) = NO ISSUES SINCE Valvular heart disease MILD AR/MR/TR PER 07/2018 ECHO Exercise / Class Metabolic Activity II 4-5 Yardwork/Stairs/Walk up hill Past Surgical History Surgical History S/P placement of cardiac pacemaker 09/18/18 History of bilateral tubal ligation History of cataract surgery B/L History of cholecystectomy History of colonoscopy History of dilatation and curettage History of eye surgery LASIK History of tonsillectomy History of tooth extraction History of total shoulder replacement RIGHT REVERSE TOTAL SHOULDER S/P correction of deviated nasal septum Past Anesthesia History No Hx of Anesthesia Complications and No Family Hx of Anesthesia Complications History of PONV No Hx of PONV Social History Smoking Status: Former smoker Smoking cigarettes per day: Smoked ~1/2 ppd x ~15 years (unsure) Do You Dip or Chew Tobacco: No Hx Alcohol Use: No Alcohol type: wine alcohol intake frequency: 0-2 drinks per day Hx Substance Use: No substance use type: does not use Physical Exam Vital Signs Last Vital Signs Temp 36.7 C 09/19/18 11:06 Pulse 62 09/19/18 16:00 Resp 20 09/19/18 11:06 BP 142/56 H 09/19/18 11:06 Pulse Ox 94 09/19/18 11:06 Testing Laboratory Results 09/19/18 11:14 09/19/18 11:14 Electrocardiogram Date: 09/19/18 Findings: + ST @ (130 bpm) Sinus tachycardia with 1st degree A-V block with Premature supraventricular com plexes ST & T wave abnormality, consider inferior ischemia ST & T wave abnormality, consider anterolateral ischemia Abnormal ECG When compared with ECG of 18-SEP-2018 11:05, (unconfirmed) Sinus rhythm has replaced Electronic ventricular pacemaker Chest X-Ray Date: 09/19/18 FINDINGS: Cardiac silhouette is mildly enlarged, unchanged. Calcification of the thoracic aortic arch. Status post placement of a left subclavian dual lead pacer with leads overlying the expected locations of the right atrium and right ventricle. Leads appear to be intact. No postprocedural pneumothorax identified. No overt pulmonary edema Subsegmental bibasilar opacities are best noted on the lateral projection. Trace pleural effusions. Reverse right shoulder total joint arthroplasty. Degenerative changes of the left shoulder and spine. Cholecys tectomy. IMPRESSION: 1. Status post placement of a left subclavian dual lead pacer. No postprocedural pneumothorax. 2. Cardiomegaly without overt pulmonary edema. 3. Trace pleural effusions with mild subsegmental bibasilar opacities. Echocardiogram Date: 07/17/18 EF: 50-55% RWMA: + none EF 55-60%. No RWMA. Mild MR/AR/TR. Mild LAE. Mild AV sclerosis.
[2018-09-19] MEDS: METOPROLOL TARTRATE 50 MG TAB PO SCH (20:27)
[2018-09-20 05:58] LABS: Basophils # (auto) 0.03 K/uL (0-0.2); Basophils % (auto) 0.3 %; Eosinophils # (auto) 0.16 K/uL (0-0.5); Eosinophils % (auto) 1.4 %; Hematocrit (blood only) 41.8 % (37-47); Hemoglobin 13.8 g/dL (12.0-16.0); Immature Granulocytes # (auto) 0.13 K/uL (0.00-0.02); Immature Granulocytes % (auto) 1.1 %; Lymphocytes # (auto) 2.62 K/uL (1.2-3.4); Lymphocytes % (auto) 22.6 %; Mean Corpuscular Volume 90.3 fL (80-100); Mean Platelet Volume 9.8 fL (7.4-10.4); Monocytes # (auto) 1.07 K/uL (0.11-0.59); Monocytes % (auto) 9.2 %; Neutrophils % (auto) 65.4 %; Platelet Count 153 K/uL (130-400); RDW Coefficient of Variation 17.3 % (11.5-14.5); RDW Standard Deviation 56.7 fL (36.4-46.3); Red Blood Count 4.63 M/uL (4.2-5.4); White Blood Count 11.61 K/uL (4.8-10.8)
[2018-09-20 06:33] LABS: BUN Creatinine Ratio 23.2 (10-20); Calcium 8.2 mg/dl (8.5-10.1); Creatinine Clr Calc Pharmacy 60.4 ml/min; Potassium 3.4 mmol/L (3.5-5.1)
[2018-09-20] MEDS ORDERED: POTASSIUM CHLORIDE 20 MEQ TABCR PO STA (08:40)
--- NOTE | 2018-09-20 09:08 | Cardiology Progress Note ---
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 Plan outpt device and wound check in 6-10 days. (2) Atrial fibrillation with rapid ventricular response: Now in SR after oral metoprolol and sotalol, IV diltiazem. Telemetry this am A paced rhythm, no AF. EKG am of 09/20/18 Atrial-paced rhythm at 60 bpm with prolonged AV conduction ST & T wave abnormality.Abnormal ECKG. When compared with ECG of 19-SEP-2018 06:58, Electronic atrial pacemaker has replaced Sinus rhythm Vent. rate has decreased BY 70 BPM. QTC is prolonged at 488 ms ([place] QRS complex). Sotalol dose had been 80 mg BID, increased to 160 mg BID this hospital stay, Given QTc of 488 ms, plus outpatient treatment with ultram and trazodone, and pt's age will reduced sotaolol to 120 mg BID. Continue higher dose of metoprolol. Future considerations include replacing metoprolol with oral. Diltiazem. Repeat EKG in Am. Pt not a candidate for amiodarone due to prior thyrotoxicosis. (3) Encounter for monitoring anti-arrhythmic therapy: As above. (4) Abnormal electrocardiogram [ECG] [EKG]: Repolarization changes, consistent with possible underlying ischemia. Pt without angina. No recent ischemic work up. Plan for Pharm nuclear stress in a few weeks as outpatient. (5) Hypokalemia: Replace orally. Repeat BMP tomorrow. DVT prophylaxis: on Eliquis for stroke and DVT prophylaxis. Subjective CC: follow up atrial fibrillation, pacemaker implantation Subjective: Pateint feels well. No complaints. Telemetry reveals pt converted from AF RVR to SR on 09/19/18 at 13:15 shortly after start of diltiazem bolus and infusion. Diltiazem gtt discontinued about 1 hr post conversion. Has remained in SR in the meantime. Review of Systems Review of Systems: All systems reviewed & are unremarkable except as noted in HPI & below Physical Exam Constitutional: WD/WN, vitals as above Respiratory: normal respiratory effort, lungs clear to auscultation Cardiovascular: RRR, no murmur, no edema Vessels: no JVD Extremities: no edema Chest (Breasts): Chest: + pacemaker (Pocket with minimal errhythema, no drainage, no hematoma) Gastrointestinal (Abdomen): normal bowel sounds, soft, nontender, no hepatosplenomegaly Neurologic: moves all extremities; no focal motor deficits Results & Data Vital Signs (Past 12 Hours) Vital Signs Temp Pulse Pulse Pulse Resp BP BP 09/20/18 07:48 36.8 C 60 18 133/78 09/20/18 07:31 61 09/20/18 03:36 36.6 C 60 20 133/69 09/19/18 23:35 36.9 C 60 20 126/65 09/19/18 23:20 62 Pulse Ox 09/20/18 07:48 90 09/20/18 07:31 09/20/18 03:36 93 09/19/18 23:35 94 09/19/18 23:20 Laboratory Results Cardiac Enzymes 09/19/18 Range/Units 11:14 AST 38 H (15-37) U/L CBC 09/19/18 09/20/18 Range/Units 11:14 05:22 WBC 11.81 H 11.61 H (4.8-10.8) K/uL RBC 5.06 4.63 (4.2-5.4) M/uL Hgb 15.2 13.8 (12.0-16.0) g/dL Hct 45.2 41.8 (37-47) % Plt Count 173 153 (130-400) K/uL Neut # (Auto) 9.67 H 7.60 H (1.4-6.5) K/uL Lymph # (Auto) 1.16 L 2.62 (1.2-3.4) K/uL [place] # (Auto) 0.73 H 1.07 H (0.11-0.59) K/uL Eos # (Auto) 0.13 0.16 (0-0.5) K/uL Baso # (Auto) 0.02 0.03 (0-0.2) K/uL Comprehensive Metabolic Panel 09/19/18 09/20/18 Range/Units 11:14 05:22 Sodium 135 L 135 L (136-145) mmol/L Potassium 4.2 3.4 L D (3.5-5.1) mmol/L Chloride 103 104 (98-107) mmol/L Carbon Dioxide 26 25 (21-32) mmol/L BUN 17 18 (7-18) mg/dl Creatinine 0.84 0.78 (0.6-1.2) mg/dl Glucose 88 77 (70-99) mg/dl Calcium 8.6 8.2 L (8.5-10.1) mg/dl AST 38 H (15-37) U/L ALT 28 (12-78) U/L Alkaline Phosphatase 62 (45-117) U/L Total Protein 5.8 L (6.4-8.2) gm/dl Albumin 2.8 L (3.4-5.0) gm/dl Intake and Output 09/19/18 09/20/18 09/20/18 22:59 06:59 14:59 Intake Total 600 / 1186.5 0 / 0 Balance 600 / 1186.5 0 / 0 Intake: IV 0 / 0 Oral 600 / 1175 Other: # Unmeasured Voids 1 Weight 86.3 kg 85.3 kg Medications Administered Current Inpatient Medications Acetaminophen (Tylenol) 650 mg PO Q4H PRN PRN Reason: Pain or Fever Stop: 10/18/18 09:21 Apixaban (Eliquis) 5 mg PO BID [facility] Stop: 10/18/18 10:59 Last Admin: 09/19/18 20:26 Dose: 5 mg Documented by: Atorvastatin Calcium (Lipitor) [facility] Stop: 10/19/18 08:59 Last Admin: 09/19/18 08:18 Dose: 20 mg Documented by: Fexofenadine HCl (Lulu) 180 mg PO DAILY [facility] Stop: 10/19/18 08:59 Last Admin: 09/19/18 08:17 Dose: 180 mg Documented by: Furosemide (Lasix) 40 mg PO QAM [facility] Stop: 10/19/18 08:59 Last Admin: 09/19/18 08:17 Dose: 40 mg Documented by: Levetiracetam (Keppra) 500 mg PO BID [facility] Stop: 10/18/18 20:59 Last Admin: 09/19/18 20:26 Dose: 500 mg Documented by: Lisinopril (Zestril) 10 mg PO QAM [facility] Stop: 10/19/18 08:59 Last Admin: 09/19/18 08:17 Dose: 10 mg Documented by: Metoprolol Tartrate (Lopressor) 50 mg PO BID [facility] Stop: 10/19/18 20:59 Last Admin: 09/19/18 20:27 Dose: 50 mg Documented by: Miscellaneous (Order Awaiting Action) 1 ea N/A QS [facility] Stop: 10/18/18 15:59 Last Admin: 09/20/18 01:08 Dose: Not Given Documented by: Real Non- Formulary Patient's Own Med 1 ea OP BID [facility] Stop: 10/18/18 20:59 Last Admin: 09/19/18 20:27 Dose: 1 drops Documented by: Oxycodone/Acetaminophen (Percocet 5mg/325mg) 1 - 2 tab PO Q6H PRN PRN Reason: Moderate-Severe Pain Stop: 10/02/18 09:21 Last Admin: 09/18/18 19:00 Dose: 1 tab Documented by: Pantoprazole Sodium (Protonix) 40 mg PO [facility]; Protocol Stop: 10/19/18 08:59 Last Admin: 09/19/18 08:18 Dose: 40 mg Documented by: Prednisone (Prednisone) 10 mg PO [facility] Stop: 10/19/18 08:59 Last Admin: 09/19/18 08:18 Dose: 10 mg Documented by: Sodium Chloride ([place] Nasal) 2 sprays MABEL BID PRN PRN Reason: Nasal Congestion Stop: 10/18/18 09:23 Sotalol HCl (Betapace) 160 mg PO BID [facility] Stop: 10/18/18 20:59 Last Admin: 09/19/18 20:26 Dose: 160 mg Documented by: Tramadol HCl (Ultram) 50 mg PO Q8H PRN PRN Reason: Pain Stop: 10/18/18 09:23 Trazodone HCl (Desyrel) 50 mg PO HS PRN PRN Reason: Insomnia Stop: 10/18/18 09:23 Vitamin D (Vitamin D3) 1,000 units PO [facility] Stop: 10/19/18 08:59 Last Admin: 09/19/18 08:17 Dose: 1,000 units Documented by:
[2018-09-20] MEDS: SOTALOL HCL 80 MG TAB PO SCH ×3 (09:31→20:01)
[2018-09-20] MEDS: SIMBRINZA OP SCH ×2 (09:37→20:02)
[2018-09-20] MEDS: LISINOPRIL 10 MG TAB PO SCH (09:37)
[2018-09-20] MEDS: levETIRAcetam 500 MG TAB PO SCH ×2 (09:38→20:02)
[2018-09-20] MEDS: METOPROLOL TARTRATE 50 MG TAB PO SCH ×2 (09:38→20:02)
[2018-09-20] MEDS: CHOLECALCIFEROL 1,000 UNITS TAB PO SCH (09:38)
[2018-09-20] MEDS: FEXOFENADINE HCL 180 MG TAB PO SCH (09:38)
[2018-09-20] MEDS: FUROSEMIDE 40 MG TAB PO SCH (09:38)
[2018-09-20] MEDS: ATORVASTATIN 20 MG TAB PO SCH (09:38)
[2018-09-20] MEDS: PANTOprazole 40 MG TAB PO SCH (09:38)
[2018-09-20] MEDS: predniSONE 10 MG TABLET PO SCH (09:39)
[2018-09-20] MEDS: APIXABAN 5 MG TABLET PO SCH ×2 (09:39→20:02)
[2018-09-21 06:38] LABS: BUN Creatinine Ratio 21.9 (10-20); Calcium 8.4 mg/dl (8.5-10.1); Creatinine Clr Calc Pharmacy 58.1 ml/min; Est GFR (African American) 84.1; Est GFR (Non-African American) 72.6; Potassium 3.7 mmol/L (3.5-5.1)
[2018-09-21] MEDS: FEXOFENADINE HCL 180 MG TAB PO SCH (08:26)
[2018-09-21] MEDS: predniSONE 10 MG TABLET PO SCH (08:26)
[2018-09-21] MEDS: METOPROLOL TARTRATE 50 MG TAB PO SCH (08:26)
[2018-09-21] MEDS: FUROSEMIDE 40 MG TAB PO SCH (08:27)
[2018-09-21] MEDS: APIXABAN 5 MG TABLET PO SCH (08:27)
[2018-09-21] MEDS: LISINOPRIL 10 MG TAB PO SCH (08:27)
[2018-09-21] MEDS: levETIRAcetam 500 MG TAB PO SCH (08:27)
[2018-09-21] MEDS: SOTALOL HCL 80 MG TAB PO SCH (08:28)
[2018-09-21] MEDS: CHOLECALCIFEROL 1,000 UNITS TAB PO SCH (08:28)
[2018-09-21] MEDS: ATORVASTATIN 20 MG TAB PO SCH (08:28)
[2018-09-21] MEDS: SIMBRINZA OP SCH (08:29)
[2018-09-21] MEDS: PANTOprazole 40 MG TAB PO SCH (08:29)
[2018-09-21] MEDS ORDERED: POTASSIUM CHLORIDE 10 MEQ TABCR PO SCH (09:00)
[2018-09-21] MEDS ORDERED: POTASSIUM CHLORIDE 20 MEQ TABCR PO STA (09:00)
--- NOTE | 2018-09-21 09:53 | Cardiology Progress Note ---
Date of Service September 21, 2018 Assessment & Plan (1) Atrial fibrillation: (2) Tachy-christopher syndrome: Patient has had multiple recent cardiology encounters for recurrent symptomatic atrial fibrillation, ultimately culminating in the diagnosis of tachycardia bradycardia syndrome. She presented for elective permanent pacemaker implantation on 09/18/2018, and arrived in atrial fibrillation with rapid ventricular response. She underwent pacemaker implantation which went well, but remained in atrial fibrillation with rapid ventricular rates on postoperative day 1 despite increasing her sotalol and metoprolol dose. She subsequent received an IV bolus of diltiazem 10 mg IV as well as initiation of a diltiazem infusion and spontaneously converted back to sinus rhythm on 09/19/2018 at 1:15 PM. Diltiazem was then discontinued and she has been in sinus rhythm on oral medications in the meantime. Her admitting dose of sotalol 80 mg twice daily had initially been increased to 160 mg twice daily, but then reduced due to concerns of potential prolongation of her QT interval. She is to be discharged on sotalol 120 mg twice daily along with an increased dose of metoprolol tartrate 50 mg twice daily. QT interval today is prolonged at 501 ms, but there are no ventricular arrhythmias noted on telemetry. The patient has proven to require antiarrhythmic therapy. Unfortunately she is not a candidate for amiodarone given past history of thyrotoxicosis. We will proceed with cautious treatment with sotalol. Her potassium was mildly low today 3.7 will be replaced orally. Her outpatient medications to include trazodone and Ultram. The patient states she takes these very seldomly as needed for sleep or pain and these are not routine medications for her. Disposition: Close to cardiology follow-up is planned with the pacemaker check a week from now on 09/28/2018 at [facility], patient arrival time 11:45 AM. She also has a follow-up visit already planned with Dr. Coello on 10/30/2018,[facility], patient arrival time 2:15 PM. An EKG has already been ordered to be performed at the time of that visit for reassessment. The patient has repolarization abnormalities suggestive of underlying ischemia without any subjective symptoms to suggest ischemia. We will proceed with further risk stratification to include a combined low intensity exercise and pharmacologic nuclear stress test which is to be scheduled at [facility] in advance of the patient's follow-up visit with Dr. Coello. I have placed the order in her outpatient chart. (3) Pacemaker: Interrogation planned as outpatient next week. (4) Hypokalemia: Replaced orally today. (5) Encounter for monitoring anti-arrhythmic therapy: Proceed with cautious treatment with sotalol. Subjective Chief complaint: Follow-up symptomatic paroxysmal atrial fibrillation, tachycardia-bradycardia syndrome with permanent pacemaker implantation Subjective: Patient seen and cardiology follow-up in coverage of Dr. Adams. Patient feels well. Per nursing she has been walking in the unit without difficulty. She denies lightheadedness or dizziness. Telemetry reveals stable sinus rhythm with occasional atrial paced beats, kaibab QRS complexes. She has had no additional atrial fibrillation since the afternoon of 09/19/2018. No significant PVCs noted. Review of Systems Review of Systems: All systems reviewed & are unremarkable except as noted in HPI & below Physical Exam Physical Exam: General: no acute distress and stated age Eyes: conjunctiva are pink and non-injected, sclera clear Neck: normal jugular venous pulse, no hepatojugular reflux Chest: normal shape and normal respiratory effort -Well-healing left infraclavicular pacemaker pocket, mild erythema, no ecchymosis, no hematoma Lungs: clear to auscultation and percussion Cardiac Exam: - regular heart sounds, no murmurs, rubs, or gallops, no jugular venous distention Abdomen: abdomen soft, non-tender, no abnormal masses and no hepatosplenomegaly Extremities: no edema and no cyanosis Neuro:awake, coversant, follows commands, no focal motor deficits Psych: appropriate affect and insight. Results & Data Vital Signs (Past 12 Hours) Vital Signs Temp Pulse Resp BP Pulse Ox 09/21/18 06:59 36.7 C 60 18 174/66 H 94 09/21/18 04:00 36.6 C 63 16 144/67 H 97 09/20/18 23:34 36.6 C 68 16 139/65 95 Laboratory Results Comprehensive Metabolic Panel 09/21/18 Range/Units 05:25 Sodium 137 (136-145) mmol/L Potassium 3.7 (3.5-5.1) mmol/L Chloride 106 (98-107) mmol/L Carbon Dioxide 26 (21-32) mmol/L BUN 18 (7-18) mg/dl Creatinine 0.81 (0.6-1.2) mg/dl Glucose 79 (70-99) mg/dl Calcium 8.4 L (8.5-10.1) mg/dl Intake and Output 09/20/18 09/21/18 09/21/18 22:59 06:59 14:59 Intake Total 575 / 1120 0 / 1120 Balance 575 / 1120 0 / 1120 Intake: IV 0 / 0 Oral 575 / 1120 Other: Weight 84.7 kg Diagnostic Findings EKG performed today 09/21/2018 at 6:44 AM revealed sinus rhythm at 63 bpm with prolonged AV conduction, kaibab QRS complexes, diffuse repolarization changes noted in the inferior and precordial leads suggestive of possible ischemia, the QT interval is prolonged at 501 ms. Compared to the prior tracing from yesterday, the repolarization changes are relatively similar. The QT interval had been 488 ms yesterday.
--- NOTE | 2018-09-21 10:10 | Discharge Summary ---
Date of Service September 21, 2018 Admission HPI +VALADEZ and generalized weakness Principal Diagnosis Principal Diagnosis Symptomatic paroxysmal atrial fibrillation, tachycardia-bradycardia syndrome Discharge Data Allergies Allergy/AdvReac Type Severity Reaction Status Date / Time phenytoin Allergy Intermediate HIVES AND Verified 09/18/18 06:36 MOUTH ULCERS codeine AdvReac Mild VOMITTING Verified 09/18/18 06:36 Bactrim AdvReac Unknown "FEELS Verified 02/22/17 11:49 LIKE KNIVES ARE IN MY HEAD" hydrochlorothiazide AdvReac Unknown SEE COMMENT Verified 09/18/18 06:36 sulfamethoxazole AdvReac Unknown "FEELS Verified 09/18/18 06:36 LIKE KNIVES ARE IN MY HEAD" trimethoprim AdvReac Unknown "FEELS Verified 09/18/18 06:36 LIKE KNIVES ARE IN MY HEAD" Dust Allergy Mild SINUS Uncoded 09/18/18 06:36 INFECTIONS Consultations 09/19/18 10:50 Consult Anesthesiology Routine Procedures Performed Operation Date: 09/18/18 08:30 Actual Procedures p Pacer with A/V Leads (Dual) - Natalie Adams DO s Venogram, Unilateral - Natalie Adams DO Ordered Studies 09/18/18 06:45 EP Lab Images for PACS ONCE Hospital Course (1) Tachy-christopher syndrome: In summary patient underwent permanent pacemaker implantation, and remained in the hospital while her prior to hospital dose of sotalol was titrated from 80 mg twice daily to 120 mg twice daily. Her prior to hospital dose of metoprolol tartrate 25 mg twice daily was titrated to 50 mg twice daily. Problems / Interventions / Follow up Plans (1) Atrial fibrillation: (2) Tachy-christopher syndrome: Patient has had multiple recent cardiology encounters for recurrent symptomatic atrial fibrillation, ultimately culminating in the diagnosis of tachycardia bradycardia syndrome. She presented for elective permanent pacemaker implantation on 09/18/2018, and arrived in atrial fibrillation with rapid ventricular response. She underwent pacemaker implantation which went well, but remained in atrial fibrillation with rapid ventricular rates on postoperative day 1 despite increasing her sotalol and metoprolol dose. She subsequent received an IV bolus of diltiazem 10 mg IV as well as initiation of a diltiazem infusion and spontaneously converted back to sinus rhythm on 09/19/2018 at 1:15 PM. Diltiazem was then discontinued and she has been in sinus rhythm on oral medications in the meantime. Her admitting dose of sotalol 80 mg twice daily had initially been increased to 160 mg twice daily, but then reduced due to concerns of potential prolongation of her QT interval. She is to be discharged on sotalol 120 mg twice daily along with an increased dose of metoprolol tartrate 50 mg twice daily. QT interval today is prolonged at 501 ms, but there are no ventricular arrhythmias noted on telemetry. The patient has proven to require antiarrhythmic therapy. Unfortunately she is not a candidate for amiodarone given past history of thyrotoxicosis. We will proceed with cautious treatment with sotalol. Her potassium was mildly low today 3.7 and was replaced orally 09/21/18. Her outpatient medications to include trazodone and Ultram. The patient states she takes these very seldomly as needed for sleep or pain and these are not routine medications for her. Disposition: Follow Up appointment. -Prescriptions for the new doses of sotalol and metoprolol tartrate were electronically prescribed through her [facility] chart to [facility]. Close to cardiology follow-up is planned with the pacemaker check a week from now on 09/28/2018 at [facility], patient arrival time 11:45 AM. She also has a follow-up visit already planned with Dr. Coello on 10/30/2018,[facility] site, patient arrival time 2:15 PM. An EKG has already been ordered to be performed at the time of that visit for reassessment. The patient has repolarization abnormalities suggestive of underlying ischemia without any subjective symptoms to suggest ischemia. We will proceed with further risk stratification to include a combined low intensity exercise and pharmacologic nuclear stress test which is to be scheduled at [facility] in advance of the patient's follow-up visit with Dr. Coello. I have placed the order in her outpatient chart. (3) Pacemaker: Interrogation planned as outpatient next week. (4) Hypokalemia: Replaced orally today. (5) Encounter for monitoring anti-arrhythmic therapy: Proceed with cautious treatment with sotalol. Total Time Total Time Spent Total Time Spent (In Minutes): 45 Total Time Includes: Examination of the Patient, Discharge Planning, Medication Reconciliation and Communication With Other Providers Discharge Plan Discharge Items Reason For Visit: TBS Discharge Diagnosis: TBS s/p dual chamber permanent pacemaker, [employer] Condition: Good Discharge Goals: Improve function Activity: As commented below Activity Comment: do not lift the left elbow over the left shoulder for 1 month Lifting: No more than 10 pounds Lifting Comment: do not lift more than 10 pounds with the left arm for 2 weeks Bathing: Keep incision dry Bathing Comment: can shower thurs 09/20 do not scrub the incision just let water run over it Sexual Activity: After two weeks Driving/Machine Use: Resume 1 day after discharge Call non-emergency contact if: you have any medication questions Follow-up/Referrals: Wilfredo Liang MD [Primary Care Provider] - [facility] Provider Instructions: device and wound check as scheduled next Monday at [facility] cardiology 09/28 if you notice any swelling call my office immediately Follow Up Visits: Close to cardiology follow-up is planned with the pacemaker check a week from now on 09/28/2018 at [facility], patient arrival time 11:45 AM. She also has a follow-up visit already planned with Dr. Coello on 10/30/2018,[facility] site, patient arrival time 2:15 PM. An EKG has already been ordered to be performed at the time of that visit for reassessment. The patient has repolarization abnormalities suggestive of underlying ischemia without any subjective symptoms to suggest ischemia. We will proceed with further risk stratification to include a combined low intensity exercise and pharmacologic nuclear stress test which is to be scheduled at [facility] in advance of the patient's follow-up visit with Dr. Coello. I have placed the order in her outpatient chart. Prescriptions: New metoprolol tartrate 50 mg Tablet 50 mg PO BID Qty: 60 RF: 0 sotalol 80 mg tablet 120 mg PO BID Qty: 180 RF: 1 Continued sodium chloride [[place]ine Nasal] 0.65 % Aerosol,[place] 2 spray INTRANASAL BID PRN (Reason: Nasal Congestion) RF: 0 fexofenadine [Lulu Allergy] 180 mg Tablet 180 mg PO DAILY RF: 0 furosemide 40 mg Tablet 40 mg PO QAM RF: 0 atorvastatin 20 mg Tablet 20 mg PO QAM RF: 0 trazodone 50 mg Tablet 50 mg PO HS PRN (Reason: Insomnia) RF: 0 levetiracetam 500 mg Tablet 500 mg PO BID RF: 0 Alrex 0.2 % Drops,Suspension 1 drp OPHTHALMIC (EYE) BID PRN (Reason: Itching) RF: 0 tramadol 50 mg Tablet 50 mg PO Q8H PRN (Reason: Pain) RF: 0 potassium 99 mg Tablet 99 mg PO QAM RF: 0 lisinopril 10 mg Tablet 10 mg PO QAM RF: 0 cholecalciferol (vitamin D3) [Vitamin D3] 1,000 unit Capsule 1,000 unit PO QAM RF: 0 omeprazole 20 mg Tablet,Delayed Release (Dr/Ec) 20 mg PO QAM RF: 0 Eliquis 5 mg Tablet 5 mg PO BID RF: 0 Simbrinza 1-0.2 % Drops,Suspension 1 drp OPHTHALMIC (EYE) BID RF: 0 prednisone 20 mg Tablet 10 mg PO QAM Qty: 0 RF: 0 Discontinued sotalol 80 mg tablet 80 mg PO BID RF: 0 metoprolol tartrate 25 mg Tablet 25 mg PO BID RF: 0 Stand-Alone Forms: [facility] Admission Data Admit Date/Time: 09/18/18 09:38 Attending Provider: Natalie Adams Admit Provider: Natalie Adams Primary Care Provider: Wilfredo Liang Other Providers: Clark Nava Service: Telemetry Medical Other Pending Studies at Discharge: No
== END 2018-09-21 11:24 | disposition home or self-care (01) | DRG 244 ==
LOC: EP 06:13 → 2E 09:38

== ENCOUNTER 2018-10-23 12:27 | Inpatient (IN) ==
[2018-10-23] MEDS ORDERED: POLYETHYLENE (MIRALAX) 17 GM PACK PO PRN (13:25)
[2018-10-23] MEDS ORDERED: ACETAMINOPHEN 325 MG TAB PO PRN (13:25)
[2018-10-23] MEDS ORDERED: ONDANSETRON INJ 2 MG/ML 2 ML VIAL IV PRN (13:25)
--- NOTE | 2018-10-23 14:21 | History & Physical Report ---
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 HR 129 upon arrival In the setting of underlying herpes zoster infection Unable to take amiodarone due to history of thyrotoxicosis Work up: CMP, CBC, TSH, CXR pending Continue home dose Sotalol 120mg BID, Lopressor 50mg BID Add PRN IV Lopressor 5mg Q6H for HR >110 Continue Eliquis for anticoagulation (2) Herpes zoster: Vesicular rash on R hip and buttocks, present for 1 week per patient Start on Valacyclovir 1g TID x 7 days (3) Wound of sacral region: Evidence of an open lesion on sacrum during exam Wound care nurse consulted (4) Tachy-christopher syndrome: (5) S/P placement of cardiac pacemaker: Placed in September 2018 Pacemaker interrogation in clinic reveals paroxysmal A Fib (6) HTN (hypertension): Hypotensive at 94/64 in setting of tachycardia Hold Lasix and lisinopril for now (7) Chronic back pain: Continue chronic prednisone 10mg daily for now May want to eventually taper due to immunocompromised state on termination clerk steroids (8) Hyperlipidemia: Continue statin (9) Seizure disorder: Single seizure episode in 2005 Continue keppra DVT Ppx: continue Eliquis Code status: FULL PCP: [facility] Dispo: Admitted to telemetry. Plan to return home once medically stable. Patient seen in collaboration with Dr. Skelton. Please see addendum. 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 Patient was seen in cardiology clinic today and was noted to be dyspneic with any type of exertion or movement. States that she has felt generally weak for the past 3 days. Also notes a rash that is been present on her right thigh and hip for the past week. Denies any lightheadedness, visual changes, chest pain, palpitations or wheezing. No fever, chills, headache, nausea, vomiting, abdominal pain, dysuria, diarrhea or constipation. When evaluated by Dr. Coello in cardiology clinic today, EKG was performed that revealed A. fib with RVR at 110 bpm. Pacemaker interrogation was performed, showing paroxysmal A. fib. Recently had sotalol dose increased to 120 mg twice daily. Also with history of tachybradycardia syndrome and pacemaker implantation in September 2018. Allergies Allergy/AdvReac Type Severity Reaction Status Date / Time phenytoin Allergy Intermediate HIVES AND Verified 10/23/18 12:53 MOUTH ULCERS codeine AdvReac Mild VOMITTING Verified 10/23/18 12:53 Bactrim AdvReac Unknown "FEELS Verified 10/23/18 12:53 LIKE KNIVES ARE IN MY HEAD" hydrochlorothiazide AdvReac Unknown SEE COMMENT Verified 10/23/18 12:53 sulfamethoxazole AdvReac Unknown "FEELS Verified 10/23/18 12:53 LIKE KNIVES ARE IN MY HEAD" trimethoprim AdvReac Unknown "FEELS Verified 10/23/18 12:53 LIKE KNIVES ARE IN MY HEAD" Dust Allergy Mild SINUS Uncoded 10/23/18 12:53 INFECTIONS Home Medications Home Medications Medication Instructions Recorded Confirmed Type Alrex 1 drp OPHTHALMIC (EYE) BID PRN 06/15/18 10/23/18 History Eliquis 5 mg PO BID 06/15/18 10/23/18 History Simbrinza 1 drp OPHTHALMIC (EYE) BID 06/15/18 10/23/18 History atorvastatin 20 mg PO QAM 06/15/18 10/23/18 History cholecalciferol (vitamin D3) 1,000 unit PO QAM 06/15/18 10/23/18 History [Vitamin D3] furosemide 40 mg PO QAM 06/15/18 10/23/18 History levetiracetam 500 mg PO BID 06/15/18 10/23/18 History lisinopril 10 mg PO QAM 06/15/18 10/23/18 History omeprazole 20 mg PO QAM 06/15/18 10/23/18 History potassium 99 mg PO TID 06/15/18 10/23/18 History tramadol 50 mg PO Q8H PRN 06/15/18 10/23/18 History trazodone 50 mg PO HS PRN 06/15/18 10/23/18 History prednisone 10 mg PO QAM #0 tab 08/01/18 10/23/18 Rx sodium chloride [Saline Nasal] 2 spray INTRANASAL BID PRN 08/02/18 10/23/18 History fexofenadine [Lulu Allergy] 180 mg PO DAILY PRN 09/18/18 10/23/18 History metoprolol tartrate 50 mg PO BID #60 tab 09/21/18 10/23/18 Rx sotalol 120 mg PO BID #180 tab 09/21/18 10/23/18 Rx fluticasone propionate [Flonase 2 spray INTRANASAL DAILY 10/23/18 10/23/18 History Allergy Relief] Past Med/Surg History Medical History Seizure disorder (Chronic) single episode in 2005 Hyperlipidemia (Chronic) Atrial fibrillation (Chronic) ON ELIQUIS GERD (gastroesophageal reflux disease) (Chronic) Chronic sinusitis (Chronic) Glaucoma (Chronic) Hypertension (Chronic) Neuropathy (Chronic) Osteoarthritis (Chronic) Valvular heart disease (Chronic) MILD AR/MR/TR PER 07/2018 ECHO Surgical History S/P placement of cardiac pacemaker (Chronic) 09/18/18 History of bilateral tubal ligation (Chronic) History of cataract surgery (Chronic) B/L History of cholecystectomy (Chronic) History of dilatation and curettage (Chronic) History of tonsillectomy (Chronic) History of tooth extraction (Chronic) History of total shoulder replacement (Chronic) RIGHT REVERSE TOTAL SHOULDER S/P correction of deviated nasal septum (Chronic) Family History Other Breast cancer Social History Preferred Language: Icelandic Communication Ability: Effective Beliefs That Will Affect Care: None Current Living Situation: Spouse Other Information That Helps Us Care for You: No Feels Safe at Home: Yes Safety Concerns: Feels Safe At This Time Smoking Status: Former smoker Tobacco Type: cigarettes Cigarettes Per Day: Smoked ~1/2 ppd x ~15 years (unsure) Second Hand Exposure: No Hx Alcohol Use: No Hx Substance Use: No Review of Systems Review of Systems: At least ten systems reviewed and negative except as noted in the HPI. Physical Exam Physical Exam: Please refer to Dr. Skelton's physical below Results & Data Vital Signs (Past 12 Hours) Vital Signs Pulse Resp BP Pulse Ox 10/23/18 13:32 129 H 20 94/64 L 97 Laboratory Results CMP and CBC pending Diagnostic Findings CXR pending Supervising Physician Co-Signing Physician Notes Patient is a 73-year-old female with history of atrial fibrillation, tachybradycardia syndrome S/P pacemaker, hypertension, seizure disorder and other problems was a direct admit on recommendations from her psychology technician who evaluated the patient today. Patient complains of generalized weakness, fatigue worsening shortness of breath even with minimal exertion. She denies any chest pain, palpitations, dizziness, nausea, diaphoresis, abdominal pain, diarrhea, fever chills. She noticed the rash on her back, thigh which started about a week duration. She denies any itching, pain. Patient is on sotalol, metoprolol for atrial fibrillation. She admits to taking her medications regularly. Her pacemaker was was interrogated in her psychology technician office today. Physical Exam: Vitals signs as noted above General Appearance:Obese, no apparent distress Head: normocephalic, Atraumatic Eyes: normal inspection, EOMI Neck: supple, Trachea midline Respiratory/Chest: Decreased breath sounds, CTA Cardiovascular: Irregularly Irregular, No murmur, +Tachycardia Abdomen/GI:Soft, Non tender, Bowel sounds present Extremities/Musculoskelatal:normal inspection, 2-3 + B/L Pedal edema Neurologic/Psych:AAOX3, grossly no focal neurological deficits Skin: normal color, warm, + Erythematous vesicular rash on Dorsal region, dermatomal distribution, also on right thigh. +Sacral wound, Lesions also noted on B/L LE Afib RVR: Continue sotalol, metoprolol We will add Lopressor and as needed Gentle IV fluids Monitor electrolytes Cardiology consulted On Eliquis for anticoagulation Monitor on telemetry Herpes zoster Patient denies any pain, itching Agree with starting valacyclovir Consider starting gabapentin if patient develops neuropathic pain I personally reviewed the record. Patient is interviewed and examined at bedside. Patient's care is coordinated with Amanda Johnson PA-C. Please refer to the documentation above for details of patient's presentation and for discussion of other issues.
[2018-10-23] MEDS ORDERED: METOPROLOL TARTRATE 1 MG/ML VIAL IV PRN (14:22)
[2018-10-23] MEDS ORDERED: SODIUM CHLORIDE 0.9% 1000ML 1,000 ML IV SCH (15:00)
[2018-10-23] MEDS ORDERED: METOPROLOL TARTRATE 1 MG/ML VIAL IV STA (15:02)
[2018-10-23] MEDS ORDERED: TRAMADOL HCL 50 MG TABLET PO PRN (15:10)
[2018-10-23] MEDS ORDERED: SODIUM CHLORIDE 0.65% NA SOLN 45 ML (OCEAN) NAE PRN (15:10)
[2018-10-23] MEDS ORDERED: FEXOFENADINE HCL 180 MG TAB PO PRN (15:10)
[2018-10-23] MEDS ORDERED: TRAZODONE HCL 50 MG TAB PO PRN (15:10)
--- NOTE | 2018-10-23 15:11 | XRay Report ---
XR chest 2V routine HISTORY: admission, dyspnea on exertion COMPARISON: Chest 09/19/2018. FINDINGS: Right shoulder prosthesis. No pneumothorax. Trace pleural effusions, unchanged. The heart i s mildly enlarged. Left-sided dual-chamber pacemaker. No new focal lung consolidations to suggest pne umonia. No evidence for pulmonary edema. IMPRESSION: No change in the cardiomegaly and trace bilateral pleural effusions. Electronically signed by: Rajesh Medina M.D. 10/23/2018 3:10 PM
[2018-10-23 16:18] LABS: Albumin Level 2.8 gm/dl (3.4-5.0); BUN Creatinine Ratio 17.1 (10-20); C Reactive Protein 1.94 mg/dl (0-0.29); Calcium 8.6 mg/dl (8.5-10.1); Creatinine Clr Calc Pharmacy 44.1 ml/min; Est GFR (African American) 61.4; Potassium 4.1 mmol/L (3.5-5.1)
[2018-10-23 16:28] LABS: Albumin Globulin Ratio 0.9 (0.9-2); Bilirubin,Total 2.2 mg/dl (0.2-1); Total Protein 5.8 gm/dl (6.4-8.2)
[2018-10-23] MEDS: APIXABAN 5 MG TABLET PO SCH (20:21)
[2018-10-23] MEDS: MICONAZOLE NITRATE POWDER 43 GM EXT SCH (20:21)
[2018-10-23] MEDS: levETIRAcetam 500 MG TAB PO SCH (20:21)
[2018-10-23] MEDS: VALACYCLOVIR HCL 500 MG TABLET PO SCH (20:22)
[2018-10-23] MEDS: SOTALOL HCL 80 MG TAB PO SCH (20:22)
[2018-10-23] MEDS: METOPROLOL TARTRATE 50 MG TAB PO SCH (20:23)
[2018-10-23] MEDS ORDERED: VALACYCLOVIR HCL 500 MG TABLET PO SCH (21:00)
[2018-10-24 06:16] LABS: Basophils # (auto) 0.03 K/uL (0-0.2); Basophils % (auto) 0.3 %; Eosinophils # (auto) 0.19 K/uL (0-0.5); Eosinophils % (auto) 1.8 %; Hematocrit (blood only) 40.3 % (37-47); Hemoglobin 13.6 g/dL (12.0-16.0); Immature Granulocytes # (auto) 0.06 K/uL (0.00-0.02); Immature Granulocytes % (auto) 0.6 %; Lymphocytes # (auto) 2.14 K/uL (1.2-3.4); Lymphocytes % (auto) 19.9 %; Mean Corpuscular Hgb Conc 33.7 g/dL (32-36); Mean Corpuscular Volume 91.2 fL (80-100); Mean Platelet Volume 10.2 fL (7.4-10.4); Monocytes # (auto) 0.82 K/uL (0.11-0.59); Monocytes % (auto) 7.6 %; Neutrophils # (auto) 7.52 K/uL (1.4-6.5); Neutrophils % (auto) 69.8 %; Platelet Count 128 K/uL (130-400); RDW Coefficient of Variation 17.5 % (11.5-14.5); RDW Standard Deviation 57.9 fL (36.4-46.3); Red Blood Count 4.42 M/uL (4.2-5.4); White Blood Count 10.76 K/uL (4.8-10.8)
--- NOTE | 2018-10-24 08:25 | Cardiology Consultation ---
Date of Consultation October 24, 2018 Assessment & Plan (1) Wound of sacral region: I think it would be in the patient's best interest if she is seen by the wound care nurse and the wound care provider. She has a large area decubitus with ulcerated areas. (2) Herpes zoster: I am not certain that the patient had zoster. She did have the shingles vaccine several years ago. The rash that occurred on her right leg and is now healing does not seem to have any particular dermatomal distribution. The patient states it was not painful. She also states that did not have any vesicles. (3) Tachy-christopher syndrome: (4) S/P placement of cardiac pacemaker: (5) Atrial fibrillation: I would continue the patient on her current outpatient medications including Eliquis and sotalol. History of Present Illness Attending Physician: Dale Ko MD History of Present Illness This is a 73-year-old female well-known to the cardiology service with multiple recent admissions for atrial fibrillation, tachybradycardia syndrome and finally receiving a permanent pacemaker several weeks ago. She had been doing well after discharge and then approximately 2 weeks ago she developed a rash on her right leg. She states the rash was not painful. It has no real dermal tunnel distribution as it is distributed around the anterior posterior portion of the leg. It is actually started to heal. She has breakdown on her sacrum with several ulcerated areas which she was unaware of. She presented to the cardiology clinic with nonspecific complaints of not feeling well. She had been in atrial fibrillation with high heart rates and was recommended hospital admission. Past medical history: 1.Paroxysmal atrial fibrillation initial diagnosis June 2018 treated with sotalol for rhythm control with synchronized electrical cardioversion August 01, 2018 and August 29, 2018 2. Tachy-christopher syndrome status post dual-chamber pacemaker insertion September 18, 2018MedtronicModel: [place] [id number] 3.Hypertension. 4.History of past thyrotoxicosis. 5. Mitral and tricuspid insufficiency chronic 6. Past diastolic heart failure/pleural effusions Allergies Allergy/AdvReac Type Severity Reaction Status Date / Time phenytoin Allergy Intermediate HIVES AND Verified 10/23/18 12:53 MOUTH ULCERS codeine AdvReac Mild VOMITTING Verified 10/23/18 12:53 Bactrim AdvReac Unknown "FEELS Verified 10/23/18 12:53 LIKE KNIVES ARE IN MY HEAD" hydrochlorothiazide AdvReac Unknown SEE COMMENT Verified 10/23/18 12:53 sulfamethoxazole AdvReac Unknown "FEELS Verified 10/23/18 12:53 LIKE KNIVES ARE IN MY HEAD" trimethoprim AdvReac Unknown "FEELS Verified 10/23/18 12:53 LIKE KNIVES ARE IN MY HEAD" Dust Allergy Mild SINUS Uncoded 10/23/18 12:53 INFECTIONS Home Medications Home Medications Medication Instructions Recorded Confirmed Type Alrex 1 drp OPHTHALMIC (EYE) BID PRN 06/15/18 10/23/18 History Eliquis 5 mg PO BID 06/15/18 10/23/18 History Simbrinza 1 drp OPHTHALMIC (EYE) BID 06/15/18 10/23/18 History atorvastatin 20 mg PO QAM 06/15/18 10/23/18 History cholecalciferol (vitamin D3) 1,000 unit PO QAM 06/15/18 10/23/18 History [Vitamin D3] furosemide 40 mg PO QAM 06/15/18 10/23/18 History levetiracetam 500 mg PO BID 06/15/18 10/23/18 History lisinopril 10 mg PO QAM 06/15/18 10/23/18 History omeprazole 20 mg PO QAM 06/15/18 10/23/18 History potassium 99 mg PO TID 06/15/18 10/23/18 History tramadol 50 mg PO Q8H PRN 06/15/18 10/23/18 History trazodone 50 mg PO HS PRN 06/15/18 10/23/18 History prednisone 10 mg PO QAM #0 tab 08/01/18 10/23/18 Rx sodium chloride [Saline Nasal] 2 spray INTRANASAL BID PRN 08/02/18 10/23/18 History fexofenadine [Lulu Allergy] 180 mg PO DAILY PRN 09/18/18 10/23/18 History metoprolol tartrate 50 mg PO BID #60 tab 09/21/18 10/23/18 Rx sotalol 120 mg PO BID #180 tab 09/21/18 10/23/18 Rx fluticasone propionate [Flonase 2 spray INTRANASAL DAILY 10/23/18 10/23/18 History Allergy Relief] Patient History Medical History Seizure disorder (Chronic) single episode in 2005 Hyperlipidemia (Chronic) Atrial fibrillation (Chronic) ON ELIQUIS GERD (gastroesophageal reflux disease) (Chronic) Chronic sinusitis (Chronic) Glaucoma (Chronic) Hypertension (Chronic) Neuropathy (Chronic) Osteoarthritis (Chronic) Valvular heart disease (Chronic) MILD AR/MR/TR PER 07/2018 ECHO Surgical History S/P placement of cardiac pacemaker (Chronic) 09/18/18 History of bilateral tubal ligation (Chronic) History of cataract surgery (Chronic) B/L History of cholecystectomy (Chronic) History of dilatation and curettage (Chronic) History of tonsillectomy (Chronic) History of tooth extraction (Chronic) History of total shoulder replacement (Chronic) RIGHT REVERSE TOTAL SHOULDER S/P correction of deviated nasal septum (Chronic) Family History Other Breast cancer Social History Preferred Language: [place] Communication Ability: Effective Beliefs That Will Affect Care: None Current Living Situation: Spouse Other Information That Helps Us Care for You: No Feels Safe at Home: Yes Safety Concerns: Feels Safe At This Time Smoking Status: Former smoker Tobacco Type: cigarettes Cigarettes Per Day: Smoked ~1/2 ppd x ~15 years (unsure) Second Hand Exposure: No Hx Alcohol Use: No Hx Substance Use: No Review of Systems Review of Systems: All systems reviewed & are unremarkable except as noted in HPI & below The patient has had no fever or chills. The patient had the shingles vaccine several years ago. Physical Exam Physical Exam: General: no acute distress and stated age Head: normocephalic, no masses, lesions, tenderness or abnormalities Eyes: conjunctiva are pink and non-injected, sclera clear Neck: supple, no adenopathy, no bruits, normal jugular venous pulse, no hepatojugular reflux Chest: normal shape and normal respiratory effort Lungs: clear to auscultation and percussion Cardiac Exam: - regular rate & rhythm, no murmurs gallops or rubs - normal S1, normal S2 Pulses: 2(+) throughout Abdomen: abdomen soft, non-tender, no abnormal masses and no hepatosplenomegaly Musculoskeletal: no gait disturbance, no joint inflammation, no deforming arthritis Extremities: The patient has healing brownish circular areas on her right thigh circumferentially. Several of the areas look like they could have been ulcers or vesicles. She also has decubiti of her sacrum on the right with several nonhealing ulcers. Neuro: grossly normal exam Results & Data Vital Signs (Past 12 Hours) Vital Signs Temp Pulse Pulse Resp BP Pulse Ox 10/24/18 07:16 36.8 C 61 18 103/58 L 96 10/24/18 03:44 36.8 C 64 19 101/47 L 94 10/24/18 01:06 63 10/23/18 23:32 36.7 C 84 18 95/42 L 98 Laboratory Results Laboratory Results - last 24 hr 10/23/18 10/23/18 10/23/18 15:32 15:32 15:32 WBC RBC Hgb Hct MCV MCH MCHC RDW Std Deviation RDW Coeff of Allan Plt Count MPV Immature Gran % (Auto) Neut % (Auto) Lymph % (Auto) [place] % (Auto) Eos % (Auto) Baso % (Auto) Immature Gran # (Auto) Neut # (Auto) Lymph # (Auto) [place] # (Auto) Eos # (Auto) Baso # (Auto) ESR 13 Sodium 131 L Potassium 4.1 Chloride 101 Carbon Dioxide 19 L Anion Gap 11.0 BUN 18 Creatinine 1.05 Est Cr Clr Drug Dosing 44.1 Est GFR ( Amer) 61.4 Est GFR (Non-Af Amer) 53.0 BUN/Creatinine Ratio 17.1 Glucose 85 Calcium 8.6 Magnesium Total Bilirubin 2.2 H AST 61 H ALT 39 Alkaline Phosphatase 59 C-Reactive Protein 1.94 H Total Protein 5.8 L Albumin 2.8 L Globulin 3.0 Albumin/Globulin Ratio 0.9 TSH 2.400 Hepatitis C Ab Screen Neg 10/24/18 10/24/18 10/24/18 05:58 05:58 05:58 WBC 10.76 RBC 4.42 Hgb 13.6 Hct 40.3 MCV 91.2 MCH 30.8 MCHC 33.7 RDW Std Deviation 57.9 H RDW Coeff of Allan 17.5 H Plt Count 128 L MPV 10.2 Immature Gran % (Auto) 0.6 Neut % (Auto) 69.8 Lymph % (Auto) 19.9 [place] % (Auto) 7.6 Eos % (Auto) 1.8 Baso % (Auto) 0.3 Immature Gran # (Auto) 0.06 H Neut # (Auto) 7.52 H Lymph # (Auto) 2.14 [place] # (Auto) 0.82 H Eos # (Auto) 0.19 Baso # (Auto) 0.03 ESR Sodium Pending Potassium Pending Chloride Pending Carbon Dioxide Pending Anion Gap Pending BUN Pending Creatinine Pending Est Cr Clr Drug Dosing Pending Est GFR ( Amer) Pending Est GFR (Non-Af Amer) Pending BUN/Creatinine Ratio Pending Glucose Pending Calcium Pending Magnesium 2.0 Total Bilirubin AST ALT Alkaline Phosphatase C-Reactive Protein Total Protein Albumin Globulin Albumin/Globulin Ratio TSH Hepatitis C Ab Screen Medications Administered Current Inpatient Medications Acetaminophen (Tylenol) 650 mg PO Q4H PRN PRN Reason: Pain or Fever Stop: 11/22/18 13:24 Apixaban (Eliquis) 5 mg PO BID [facility] Stop: 11/22/18 20:59 Last Admin: 10/23/18 20:21 Dose: 5 mg Documented by: Atorvastatin Calcium (Lipitor) 20 mg PO QAM [facility] Stop: 11/23/18 08:59 Fexofenadine HCl (Lulu) 180 mg PO DAILY PRN PRN Reason: Allergy Symptoms Stop: 11/22/18 15:09 Fluticasone Propionate (Flonase) 2 sprays MABEL DAILY [facility] Stop: 11/23/18 08:59 Levetiracetam (Keppra) 500 mg PO BID [facility] Stop: 11/22/18 20:59 Last Admin: 10/23/18 20:21 Dose: 500 mg Documented by: Metoprolol Tartrate (Lopressor) 5 mg IV Q6H PRN PRN Reason: HR >110 Stop: 11/22/18 14:21 Metoprolol Tartrate (Lopressor) 50 mg PO BID [facility] Stop: 11/22/18 20:59 Last Admin: 10/23/18 20:23 Dose: 50 mg Documented by: Miconazole Nitrate (Desenex) 1 appln EXT BID [facility] Stop: 11/22/18 20:59 Last Admin: 10/23/18 20:21 Dose: 1 appln Documented by: Miscellaneous (Order Awaiting Action) 1 ea N/A QS [facility] Stop: 11/22/18 15:59 Last Admin: 10/24/18 08:18 Dose: Not Given Documented by: Miscellaneous (Order Awaiting Action) 1 ea N/A QS [facility] Stop: 11/22/18 15:59 Last Admin: 10/24/18 08:18 Dose: Not Given Documented by: Pantoprazole Sodium (Protonix) 40 mg PO QAM [facility] Stop: 11/23/18 08:59 Polyethylene Glycol (Miralax Powder Packet) 17 gm PO DAILY PRN PRN Reason: Constipation Stop: 11/22/18 13:24 Prednisone (Prednisone) 10 mg PO QAM [facility] Stop: 11/23/18 08:59 Sodium Chloride ([place] Nasal) 2 sprays MABEL BID PRN PRN Reason: Nasal Congestion Stop: 11/22/18 15:09 Sotalol HCl (Betapace) 120 mg PO BID [facility] Stop: 11/22/18 20:59 Last Admin: 10/23/18 20:22 Dose: 120 mg Documented by: Tramadol HCl (Ultram) 50 mg PO Q8H PRN PRN Reason: Pain Stop: 11/22/18 15:09 Trazodone HCl (Desyrel) 50 mg PO HS PRN PRN Reason: Insomnia Stop: 11/22/18 15:09 Valacyclovir HCl (Valtrex) 1,000 mg PO TID [facility] Stop: 11/02/18 20:59 Last Admin: 10/23/18 20:22 Dose: 1,000 mg Documented by: Vitamin D (Vitamin D3) 1,000 units PO QAM [facility] Stop: 11/23/18 08:59
[2018-10-24] MEDS: levETIRAcetam 500 MG TAB PO SCH (08:56)
[2018-10-24] MEDS: SOTALOL HCL 80 MG TAB PO SCH (08:56)
[2018-10-24] MEDS: VALACYCLOVIR HCL 500 MG TABLET PO SCH (08:56)
[2018-10-24] MEDS: METOPROLOL TARTRATE 50 MG TAB PO SCH (08:56)
[2018-10-24] MEDS: APIXABAN 5 MG TABLET PO SCH (08:57)
[2018-10-24] MEDS ORDERED: FLUTICASONE PROPIONATE NA SPR 16 GM BTL NAE SCH (09:00)
[2018-10-24] MEDS ORDERED: ATORVASTATIN 20 MG TAB PO SCH (09:00)
[2018-10-24] MEDS ORDERED: CHOLECALCIFEROL 1,000 UNITS TAB PO SCH (09:00)
[2018-10-24] MEDS ORDERED: PANTOprazole 40 MG TAB PO SCH (09:00)
[2018-10-24] MEDS ORDERED: predniSONE 10 MG TABLET PO SCH (09:00)
[2018-10-24] MEDS: MICONAZOLE NITRATE POWDER 43 GM EXT SCH (09:04)
[2018-10-24 09:26] LABS: BUN Creatinine Ratio 16.6 (10-20); Calcium 8.6 mg/dl (8.5-10.1); Creatinine Clr Calc Pharmacy 45.9 ml/min; Est GFR (African American) 64.4; Est GFR (Non-African American) 55.6; Potassium 3.5 mmol/L (3.5-5.1)
--- NOTE | 2018-10-24 13:23 | Wound Consultation ---
Date of Consultation October 24, 2018 Assessment & Plan (1) Wound of sacral region: This is a 73-year-old female with suspected herpes zoster outbreak on her right hip. Wound on the sacral region the superior different but is only 1 to have a vesicular appearance. Wound culture and viral culture for shingles were sent. We will continue antifungal powder to the wound to help dry it out. We will see patient in the office a week after discharge. Thank you for letting me participate in the care of this patient. Please not hesitate to call with any questions. Present on Admission?: Yes History of Present Illness Attending Physician: Dale Ko MD This is a 73-year-old female who was admitted with A. fib with RVR found to have acute herpes zoster rash as well as new wound on her buttocks. Patient has a history of A. fib, tachybradycardia syndrome with pacemaker placement, hypertension, history of remote seizure disorder, chronic back pain and dyslipidemia. Currently applying powder to sacral region to dry out the wound. Patient is on valacyclovir for the zosters infection. Allergies Allergy/AdvReac Type Severity Reaction Status Date / Time phenytoin Allergy Intermediate HIVES AND Verified 10/23/18 12:53 MOUTH ULCERS codeine AdvReac Mild VOMITTING Verified 10/23/18 12:53 Bactrim AdvReac Unknown "FEELS Verified 10/23/18 12:53 LIKE KNIVES ARE IN MY HEAD" hydrochlorothiazide AdvReac Unknown SEE COMMENT Verified 10/23/18 12:53 sulfamethoxazole AdvReac Unknown "FEELS Verified 10/23/18 12:53 LIKE KNIVES ARE IN MY HEAD" trimethoprim AdvReac Unknown "FEELS Verified 10/23/18 12:53 LIKE KNIVES ARE IN MY HEAD" Dust Allergy Mild SINUS Uncoded 10/23/18 12:53 INFECTIONS Home Medications Home Medications Medication Instructions Recorded Confirmed Type Alrex 1 drp OPHTHALMIC (EYE) BID PRN 06/15/18 10/23/18 History Eliquis 5 mg PO BID 06/15/18 10/23/18 History Simbrinza 1 drp OPHTHALMIC (EYE) BID 06/15/18 10/23/18 History atorvastatin 20 mg PO QAM 06/15/18 10/23/18 History cholecalciferol (vitamin D3) 1,000 unit PO QAM 06/15/18 10/23/18 History [Vitamin D3] furosemide 40 mg PO QAM 06/15/18 10/23/18 History levetiracetam 500 mg PO BID 06/15/18 10/23/18 History lisinopril 10 mg PO QAM 06/15/18 10/23/18 History omeprazole 20 mg PO QAM 06/15/18 10/23/18 History potassium 99 mg PO TID 06/15/18 10/23/18 History tramadol 50 mg PO Q8H PRN 06/15/18 10/23/18 History trazodone 50 mg PO HS PRN 06/15/18 10/23/18 History prednisone 10 mg PO QAM #0 tab 08/01/18 10/23/18 Rx sodium chloride [Saline Nasal] 2 spray INTRANASAL BID PRN 08/02/18 10/23/18 History fexofenadine [Lulu Allergy] 180 mg PO DAILY PRN 09/18/18 10/23/18 History metoprolol tartrate 50 mg PO BID #60 tab 09/21/18 10/23/18 Rx sotalol 120 mg PO BID #180 tab 09/21/18 10/23/18 Rx fluticasone propionate [Flonase 2 spray INTRANASAL DAILY 10/23/18 10/23/18 History Allergy Relief] Patient History Medical History Seizure disorder (Chronic) single episode in 2005 Hyperlipidemia (Chronic) Atrial fibrillation (Chronic) ON ELIQUIS GERD (gastroesophageal reflux disease) (Chronic) Chronic sinusitis (Chronic) Glaucoma (Chronic) Hypertension (Chronic) Neuropathy (Chronic) Osteoarthritis (Chronic) Valvular heart disease (Chronic) MILD AR/MR/TR PER 07/2018 ECHO Surgical History S/P placement of cardiac pacemaker (Chronic) 09/18/18 History of bilateral tubal ligation (Chronic) History of cataract surgery (Chronic) B/L History of cholecystectomy (Chronic) History of dilatation and curettage (Chronic) History of tonsillectomy (Chronic) History of tooth extraction (Chronic) History of total shoulder replacement (Chronic) RIGHT REVERSE TOTAL SHOULDER S/P correction of deviated nasal septum (Chronic) Family History Other Breast cancer Social History Preferred Language: Frisian Communication Ability: Effective Beliefs That Will Affect Care: None Current Living Situation: Spouse Other Information That Helps Us Care for You: No Feels Safe at Home: Yes Safety Concerns: Feels Safe At This Time Smoking Status: Former smoker Tobacco Type: cigarettes Cigarettes Per Day: Smoked ~1/2 ppd x ~15 years (unsure) Second Hand Exposure: No Hx Alcohol Use: No Hx Substance Use: No Review of Systems Review of Systems: All systems reviewed & are unremarkable except as noted in HPI & below Physical Exam Constitutional: WD/WN, vitals as above Eyes: PERRL, conjunctivae normal, anicteric sclerae ENMT: Ears: no hearing impairment Respiratory: normal respiratory effort, lungs clear to auscultation Cardiovascular: RRR, no murmur, no edema Gastrointestinal (Abdomen): normal bowel sounds, soft, nontender, no hepatosplenomegaly Skin: Wound cluster of the medial gluteal cleft measuring 8 x 6 x 0.1 cm. There is an open vesicular wound most medial aspect. Periwound is erythematous. There is a large amount of drainage. Neurologic: awake; not confused Psychiatric: A+Ox3, euthymic affect Results & Data Vital Signs (Past 12 Hours) Vital Signs Temp Pulse Resp BP Pulse Ox 10/24/18 11:47 36.9 C 65 15 133/67 10/24/18 07:16 36.8 C 61 18 103/58 L 96 10/24/18 03:44 36.8 C 64 19 101/47 L 94 (1) Wound of sacral region Encounter type: initial encounter Qualified Code(s): S31.000A - Unspecified open wound of lower back and pelvis without penetration into retroperitoneum, initial encounter
--- NOTE | 2018-10-24 16:40 | Hospitalist Progress Note ---
Date of Service October 24, 2018 Assessment & Plan (1) Atrial fibrillation with rapid ventricular response: This is a 73yo F with a PMH of A fib, tachy-christopher syndrome with pacemaker placement in September 2018, HTN, h/o remote seizure disorder, chronic back pain and other medical problems listed below who presents from cardio clinic as a direct admission with A Fib with RVR. -Patient was in atrial fibrillation with rapid ventricular response on 10/23/18 presentation (HR 129 upon arrival ). Patient converted to regular paced rhythm on 10/23/09 -continue the patient on her current outpatient medications including Eliquis and sotalol as per cardiology service -Discharge appointments 10/29/2018 11:20 AM Provider Wilfredo Liang MD Department Internal Medicine [facility] 10/30/2018 2:30 PM Provider Giorgi Coello MD Department Cardiology [facility] 11/16/2018 11:30 AM Provider Pacer [facility] Department Cardiology, [facility] 12/13/2018 4:00 PM Provider Wilfredo Liang MD Department Internal Medicine [facility] (2) Herpes zoster: Vesicular rash on R hip and buttocks, present for 1 week per patient Started on Valacyclovir 1g BID on 10/23/18 -Patient should take Valacyclovir 1000 mg twice a day for 7 days Discharge prescriptions sent electronically to [facility] [employer] [address] (3) Wound of sacral region: Evidence of an open lesion on sacrum during exam on point of arrival -Patient was seen by Dr. Marc Hutchinson for Wound of sacral region: suspected herpes zoster outbreak on her right hip; Wound on the sacral region the superior different but is only 1 to have a vesicular appearance. Wound culture and viral culture for shingles were sent. continue antifungal powder to the wound to help dry it out. patient should see Dr. Hutchinson in the office a week after discharge. -Patient should take ketoconazole topical cream and apply to between the buttock folds Discharge prescriptions sent electronically to [facility] [employer] [address] (4) Tachy-christopher syndrome: (5) S/P placement of cardiac pacemaker: Placed in September 2018 Pacemaker interrogation in clinic reveals paroxysmal A Fib (6) HTN (hypertension): Hypotensive at 94/64 in setting of tachycardia on presentation Hypotension has resolved as the rapid ventricular response resolved, and patient may resume homde dose Lasix and lisinopril on discharge (7) Chronic back pain: Continue chronic prednisone 10mg daily for now patient follows with outpatient primary care doctor (8) Hyperlipidemia: Continue statin (9) Seizure disorder: Single seizure episode in 2006 Continue keppra DVT Ppx: continue Eliquis Discharge Diagnosis Atrial fibrillation with rapid ventricular response; tachy-christopher syndrome, herpes zoster, wound of sacral region Subjective Patient remains in pace rhythm in the 60s today. no chest pain. no shortness of breath. no lightheadedness. no dizziness. no abdomen pain. Physical Exam Constitutional: WD/WN, vitals as above Eyes: PERRL, conjunctivae normal, anicteric sclerae EOM intact bilaterally ENMT: external ear and nose normal, oropharynx normal Neck: trachea midline, no thyromegaly Cardiovascular: Rate/Rhythm: regular rhythm and + bradycardic Gastrointestinal (Abdomen): normal bowel sounds, soft, nontender, no hepatosplenomegaly Musculoskeletal: Head/Neck/Chest: normocephalic and head atraumatic Skin: + rash (lower extremity rash, wound of sacral area) Psychiatric: A+Ox3, euthymic affect Results & Data Vital Signs (Past 12 Hours) Vital Signs Temp Pulse Pulse Resp BP Pulse Ox 10/24/18 15:31 61 10/24/18 15:17 36.8 C 62 18 115/52 L 95 10/24/18 12:00 61 10/24/18 11:47 36.9 C 65 15 133/67 10/24/18 07:16 36.8 C 61 18 103/58 L 96 (1) Wound of sacral region Encounter type: initial encounter Qualified Code(s): S31.000A - Unspecified open wound of lower back and pelvis without penetration into retroperitoneum, initial encounter
--- NOTE | 2018-10-24 16:46 | Discharge Summary ---
Date of Service October 24, 2018 Admission HPI Per Admitting Provider This is a 73yo F with a PMH of A fib, tachy-christopher syndrome with pacemaker placement in September 2018, HTN, h/o remote seizure disorder, chronic back pain and other medical problems listed below who presents from cardio clinic as a direct admission with generalized weakness and dyspnea on exertion. Patient was seen in cardiology clinic today and was noted to be dyspneic with any type of exertion or movement. States that she has felt generally weak for the past 3 days. Also notes a rash that is been present on her right thigh and hip for the past week. Denies any lightheadedness, visual changes, chest pain, palpitations or wheezing. No fever, chills, headache, nausea, vomiting, abdominal pain, dysuria, diarrhea or constipation. When evaluated by Dr. Coello in cardiology clinic today, EKG was performed that revealed A. fib with RVR at 110 bpm. Pacemaker interrogation was performed, showing paroxysmal A. fib. Recently had sotalol dose increased to 120 mg twice daily. Also with history of tachybradycardia syndrome and pacemaker implantation in September 2018. Admission Exam Per Admitting Provider Physical Exam: Vitals signs as noted above General Appearance:Obese, no apparent distress Head: normocephalic, Atraumatic Eyes: normal inspection, EOMI Neck: supple, Trachea midline Respiratory/Chest: Decreased breath sounds, CTA Cardiovascular: Irregularly Irregular, No murmur, +Tachycardia Abdomen/GI:Soft, Non tender, Bowel sounds present Extremities/Musculoskelatal:normal inspection, 2-3 + B/L Pedal edema Neurologic/Psych:AAOX3, grossly no focal neurological deficits Skin: normal color, warm, + Erythematous vesicular rash on Dorsal region, dermatomal distribution, also on right thigh. +Sacral wound, Lesions also noted on B/L LE Principal Diagnosis trial fibrillation with rapid ventricular response; tachy-christopher syndrome, he rpes zoster, wound of sacral region Discharge Exam Constitutional WD/WN, vitals as above Eyes PERRL, conjunctivae normal, anicteric sclerae EOM intact bilaterally ENMT external ear and nose normal, oropharynx normal Neck trachea midline, no thyromegaly Cardiovascular Rate/Rhythm: regular rhythm and + bradycardic Gastrointestinal (Abdomen) normal bowel sounds, soft, nontender, no hepatosplenomegaly Musculoskeletal Head/Neck/Chest: normocephalic and head atraumatic Skin + rash (lower extremity rash, wound of sacral area) Psychiatric A+Ox3, euthymic affect Discharge Data Allergies Allergy/AdvReac Type Severity Reaction Status Date / Time phenytoin Allergy Intermediate HIVES AND Verified 10/23/18 12:53 MOUTH ULCERS codeine AdvReac Mild VOMITTING Verified 10/23/18 12:53 Bactrim AdvReac Unknown "FEELS Verified 10/23/18 12:53 LIKE KNIVES ARE IN MY HEAD" hydrochlorothiazide AdvReac Unknown SEE COMMENT Verified 10/23/18 12:53 sulfamethoxazole AdvReac Unknown "FEELS Verified 10/23/18 12:53 LIKE KNIVES ARE IN MY HEAD" trimethoprim AdvReac Unknown "FEELS Verified 10/23/18 12:53 LIKE KNIVES ARE IN MY HEAD" Dust Allergy Mild SINUS Uncoded 10/23/18 12:53 INFECTIONS Consultations 10/23/18 13:25 Consult Cardiology Routine 10/24/18 08:25 Consult Wound Care Provider Routine Hospital Course (1) Atrial fibrillation with rapid ventricular response: This is a 73yo F with a PMH of A fib, tachy-christopher syndrome with pacemaker placement in September 2018, HTN, h/o remote seizure disorder, chronic back pain and other medical problems listed below who presents from cardio clinic as a direct admission with A Fib with RVR. -Patient was in atrial fibrillation with rapid ventricular response on 10/23/18 presentation (HR 129 upon arrival ). Patient converted to regular paced rhythm on 10/23/09 -continue the patient on her current outpatient medications including Eliquis and sotalol as per cardiology service -Discharge appointments 10/29/2018 11:20 AM Provider Wilfredo Liang MD Department Internal Medicine [facility] 10/30/2018 2:30 PM Provider Giorgi Coello MD Department Cardiology [facility] 11/16/2018 11:30 AM Provider Pacer Clinic [facility] Department Cardiology, [facility] 12/13/2018 4:00 PM Provider Wilfredo Liang MD Department Internal Medicine [facility] (2) Herpes zoster: Vesicular rash on R hip and buttocks, present for 1 week per patient Started on Valacyclovir 1g BID on 10/23/18 -Patient should take Valacyclovir 1000 mg twice a day for 7 days Discharge prescriptions sent electronically to [address] [address] (3) Wound of sacral region: Evidence of an open lesion on sacrum during exam on point of arrival -Patient was seen by Dr. Marc Hutchinson for Wound of sacral region: suspected herpes zoster outbreak on her right hip; Wound on the sacral region the superior different but is only 1 to have a vesicular appearance. Wound culture and viral culture for shingles were sent. continue antifungal powder to the wound to help dry it out. patient should see Dr. Hutchinson in the office a week after discharge. -Patient should take ketoconazole topical cream and apply to between the buttock folds Discharge prescriptions sent electronically to [address] [address] (4) Tachy-christopher syndrome: (5) S/P placement of cardiac pacemaker: Placed in September 2018 Pacemaker interrogation in clinic reveals paroxysmal A Fib (6) HTN (hypertension): Hypotensive at 94/64 in setting of tachycardia on presentation Hypotension has resolved as the rapid ventricular response resolved, and patient may resume homde dose Lasix and lisinopril on discharge (7) Chronic back pain: Continue chronic prednisone 10mg daily for now patient follows with outpatient primary care doctor (8) Hyperlipidemia: Continue statin (9) Seizure disorder: Single seizure episode in 2005 Continue keppra DVT Ppx: continue Eliquis Discharge Diagnosis Atrial fibrillation with rapid ventricular response; tachy-christopher syndrome, herpes zoster, wound of sacral region Total Time Total Time Spent Total Time Spent (In Minutes): 40 minutes Total Time Includes: Examination of the Patient, Discharge Planning, Medication Reconciliation and Communication With Other Providers Discharge Plan Discharge Items Patient Disposition: Home - Self-Care Reason For Visit: A FIB W/RVA,SOB Discharge Diagnosis: Atrial fibrillation with rapid ventricular response; tachy- christopher syndrome, herpes zoster, wound of sacral region Condition: Good Discharge Goals: Improve disease control Activity: Resume your previous activity Non-emergency contact: Primary Care Provider and [employer] Call non-emergency contact if: you have any medication questions Follow-up/Referrals: Wilfredo Liang MD [Primary Care Provider] - Diet: Heart Healthy Addtl Provider Instructions: Discharge Instructions Patient was in atrial fibrillation with rapid ventricular response on 10/23/18 presentation. Patient converted to regular paced rhythm on 10/23/09 continue the patient on her current outpatient medications including Eliquis and sotalol as per cardiology service Patient was seen by Dr. Marc Hutchinson for Wound of sacral region: suspected herpes zoster outbreak on her right hip; Wound on the sacral region the superior different but is only 1 to have a vesicular appearance. Wound culture and viral culture for shingles were sent. continue antifungal powder to the wound to help dry it out. patient should see Dr. Hutchinson in the office a week after discharge. Patient should take Valacyclovir 1000 mg twice a day for 7 days Patient should take ketoconazole topical cream and apply to between the buttock folds Discharge prescriptions sent electronically to [address] [place] [address] Discharge appointments 10/29/2018 11:20 AM Provider Wilfredo Liang MD Department Internal Medicine [facility] 10/30/2018 2:30 PM Provider Giorgi Coello MD Department Cardiology [facility] 11/16/2018 11:30 AM Provider [facility] Department Cardiology, [facility] 12/13/2018 4:00 PM Provider Wilfredo Liang MD Department Internal Medicine [facility] Prescriptions: New valacyclovir 500 mg Tablet 1,000 mg PO BID 7 Days Qty: 28 RF: 0 ketoconazole 2 % cream 1 appln TOP DAILY Qty: 15 RF: 0 Continued sodium chloride [Saline Nasal] 0.65 % Aerosol,[place] 2 spray INTRANASAL BID PRN (Reason: Nasal Congestion) RF: 0 fexofenadine [Lulu Allergy] 180 mg Tablet 180 mg PO DAILY PRN (Reason: Allergy Symptoms) RF: 0 metoprolol tartrate 50 mg Tablet 50 mg PO BID Qty: 60 RF: 0 sotalol 80 mg tablet 120 mg PO BID Qty: 180 RF: 1 furosemide 40 mg Tablet 40 mg PO QAM RF: 0 atorvastatin 20 mg Tablet 20 mg PO QAM RF: 0 trazodone 50 mg Tablet 50 mg PO HS PRN (Reason: Insomnia) RF: 0 levetiracetam 500 mg Tablet 500 mg PO BID RF: 0 Alrex 0.2 % Drops,Suspension 1 drp OPHTHALMIC (EYE) BID PRN (Reason: Itching) RF: 0 tramadol 50 mg Tablet 50 mg PO Q8H PRN (Reason: Pain) RF: 0 potassium 99 mg Tablet 99 mg PO TID RF: 0 lisinopril 10 mg Tablet 10 mg PO QAM RF: 0 cholecalciferol (vitamin D3) [Vitamin D3] 1,000 unit Capsule 1,000 unit PO QAM RF: 0 omeprazole 20 mg Tablet,Delayed Release (Dr/Ec) 20 mg PO QAM RF: 0 Eliquis 5 mg Tablet 5 mg PO BID RF: 0 Simbrinza 1-0.2 % Drops,Suspension 1 drp OPHTHALMIC (EYE) BID RF: 0 prednisone 20 mg Tablet 10 mg PO QAM Qty: 0 RF: 0 fluticasone propionate [Flonase Allergy Relief] 50 mcg/actuation [place],Suspension 2 spray INTRANASAL DAILY RF: 0 Stand-Alone Forms: [facility] Discharge Orders: Discharge Order (Routine); Ordered 10/24/18 Ordered By: Dale Ko Admission Data Admit Date/Time: 10/23/18 12:57 Attending Provider: Dale Ko Admit Provider: Naif Skelton Primary Care Provider: Wilfredo Liang Other Providers: Dilan Mason Jason L. Service: Telemetry
[2018-10-24] MEDS ORDERED: VALACYCLOVIR HCL 500 MG TABLET PO SCH (21:00)
[2018-10-25] MEDS ORDERED: MICONAZOLE NITRATE POWDER 43 GM EXT SCH (09:00)
--- NOTE | 2018-10-31 08:44 | Coding Query ---
CODING QUERY To promote full compliance with coding requirements relating to patient care, provider participation is requested in all cases of billing collections specialist uncertainty. Please assist us with the question(s) below: Coding Question(s): Dr. Ko, Dr. Mason documented that the patient had a past history of diastolic heart failure. The patient was currently on Lasix. Please clarify this diagnosis below. Did the patient have: ( ) Chronic diastolic congestive heart failure ( ) Acute/chronic diastolic congestive heart failure ( x) Past history of diastolic heart failure only, not a chronic diagnosis ( ) Other, please explain Physician's Response(s): Thank you for your time, MALU Loredo, [facility]
[2018-11-04 00:15] LABS: Source BUTTOCK CLEFT
== END 2018-10-24 17:43 | disposition home or self-care (01) | DRG 310 ==
LOC: EDBD → MERGE 12:27 → 2S 12:57 → SUATTDRO 12:57 → 2E 13:26

== ENCOUNTER 2019-02-21 04:26 | Inpatient (IN) ==
[2019-02-21] MEDS ORDERED: FUROSEMIDE 40 MG/4 ML VIAL IV STA (04:42)
[2019-02-21 04:59] LABS: Appearance Urine Clear (Clear); Bacteria Urine Automated Negative (Negative); Bilirubin Urine Negative (Negative); Blood Urine Negative (Negative); Color Urine Yellow; Epithelial Cell Urine Auto 20-30 /lpf (0-5); Glucose Urine UA Trace (Negative); Ketones Urine Negative (Negative); Leukocyte Esterase Urine Trace (Negative); Nitrite Urine Negative (Negative); Protein Urine 1+ (Negative); RBC Urine Automated 0-4 /hpf (0-4); Urobilinogen Urine Negative (Negative)
[2019-02-21 05:07] LABS: Hematocrit (blood only) 40.4 % (37-47); Hemoglobin 12.4 g/dL (12.0-16.0); Mean Corpuscular Hemoglobin 32.3 pg (25-34); Mean Corpuscular Hgb Conc 30.7 g/dL (32-36); Mean Corpuscular Volume 105.2 fL (80-100); Mean Platelet Volume 10.6 fL (7.4-10.4); Platelet Count 272 K/uL (130-400); RDW Coefficient of Variation 17.3 % (11.5-14.5); RDW Standard Deviation 67.5 fL (36.4-46.3); Red Blood Count 3.84 M/uL (4.2-5.4); White Blood Count 24.77 K/uL (4.8-10.8)
[2019-02-21 05:23] LABS: INR 1.2 (0.9-1.1); Partial Thromboplastin Ratio 0.9; Partial Thromboplastin Time 24.5 Seconds (21.0-31.0); Prothrombin Time 12.5 Seconds (9.0-12.0)
[2019-02-21 05:24] LABS: Albumin Level 3.4 gm/dl (3.4-5.0); BUN Creatinine Ratio 14.4 (10-20); Calcium 8.7 mg/dl (8.5-10.1); Creatinine Clr Calc Pharmacy 19.6 ml/min; Est GFR (Non-African American) 16.4; Potassium 4.8 mmol/L (3.5-5.1)
[2019-02-21 05:28] LABS: Basophils # (auto) 0.02 K/uL (0-0.2); Basophils % (auto) 0.1 %; Echinocytes 1+; Eosinophils # (auto) 0.14 K/uL (0-0.5); Eosinophils % (auto) 0.6 %; Immature Granulocytes # (auto) 0.14 K/uL (0.00-0.02); Immature Granulocytes % (auto) 0.6 %; Lymphocytes # (auto) 1.85 K/uL (1.2-3.4); Lymphocytes % (auto) 7.5 %; Monocytes # (auto) 1.68 K/uL (0.11-0.59); Monocytes % (auto) 6.8 %; Neutrophils # (auto) 20.94 K/uL (1.4-6.5); Neutrophils % (auto) 84.4 %; Spherocytes Occasional; Toxic Granulation 1+; Toxic Vacuolation 1+
[2019-02-21 05:33] LABS: Influenza A virus by PCR Neg for Influ A (Neg); Influenza B virus by PCR Neg for Influ B (Neg)
[2019-02-21 05:37] LABS: Albumin Globulin Ratio 1.1 (0.9-2); Bilirubin,Total 1.4 mg/dl (0.2-1); Globulin 3.2 gm/dl (2.5-4.0); Total Protein 6.6 gm/dl (6.4-8.2); Troponin I 0.127 ng/ml (0-0.045)
[2019-02-21] MEDS ORDERED: PIPERACILL/TAZOBAC CONSULT ACTIVE PRN (05:42)
[2019-02-21] MEDS ORDERED: PIPERACILLIN/TAZOBACTAM 4.5 GM/120 ML BAG IV ONE (05:42)
[2019-02-21] MEDS ORDERED: METOPROLOL TARTRATE 1 MG/ML VIAL IV STA (06:15)
[2019-02-21] MEDS ORDERED: SODIUM CHLORIDE 0.9% 250 ML IV ONE (06:26)
--- NOTE | 2019-02-21 06:45 | XRay Report ---
XR chest 1V portable CLINICAL HISTORY: Dyspnea dyspnea COMPARISON STUDY: 10/23/2018 FINDINGS: Findings of developing congestive failure versus pulmonary edema. There is a permanent bipo lar cardiac pacemaker. There is a right shoulder arthroplasty. IMPRESSION: Developing congestive heart failure versus pulmonary edema. The above report was generated using voice recognition software. It may contain grammatical, syntax or spelling errors. Electronically signed by: Kushal Orlando M.D. 02/21/2019 6:43 AM
[2019-02-21] MEDS ORDERED: ALBUMIN 25% 50 ML IV ONE ×2 (06:50→11:45)
--- NOTE | 2019-02-21 06:51 | History & Physical Report ---
Date of Service February 21, 2019 Assessment & Plan (1) Acute hypoxemic respiratory failure: Multifactorial : Complicated bronchitis/? Bronchopneumonia; severe sepsis (SI SIRS plus hypoxemia/ARF plus lactic acid elevation), immunocompromised patient, chronic steroid Rx for osteoarthritis Pulmonary congestion (EF 55-59%, TTE 2019), equivocal volume status (patient intravascularly dry) hx SSS status post PPM, patient NSR on Eliquis hypertension, elevated secondary to illness Troponin elevation secondary to above in the setting of abnormal kidney function History seizure disorder, stable on Keppra Past tobacco abuse PCU Supplemental O2 Baseline ABG Cultures, Doxycycline, Zosyn Solu-Medrol 1 dose, neb tx for bronchitis/possible bronchopneumonia causing significant hypoxemia Follow lactic acid, IV albumin CT chest RE S OB (pneumonia versus congestion) CT abdomen pelvis RE abdominal pain Follow renal function, hold home diuretic, ANGEL inhibitor for now Further management pending CT results Facilitate home BP meds, may need titration Trend troponin, TTE if with significant progression DVT prophylaxis. Eliquis dosed for renal function if no bleed on CT abdomen pelvis, SCDs interim Full code Total critical care time was 50 minutes. History of Present Illness Chief Complaint: Cough, S OB Primary Care Provider: Wilfredo Liang MD History obtained from patient, family, and records. Medical history significant for SSS status post PPM on Eliquis, hypertension, hyperlipidemia, chronic arthritis on prednisone, past tobacco abuse, pituitary tumor status post surgery, history of seizure disorder. Recent confinement October 2018 for rapid A. fib. 1 week history of cough productive of junky yellow sputum, increasing shortness of breath. No chest pain. Denies fluid retention. No known sick contacts. No witnessed aspiration. Patient also complaining of generalized achy abdominal pain with nausea, dry heaving symptoms. Good bowel movement. O2 sats noted to be 70s on room air by EMS. CPAP initiated by EMS. At the ER, IV Zosyn and Lasix given for possible pneumonia/CHF. 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 Allergies Allergy/AdvReac Type Severity Reaction Status Date / Time phenytoin Allergy Intermediate HIVES AND Verified 02/21/19 04:57 MOUTH ULCERS codeine AdvReac Mild VOMITTING Verified 02/21/19 04:57 Bactrim AdvReac Unknown "FEELS Verified 10/23/18 12:53 LIKE KNIVES ARE IN MY HEAD" hydrochlorothiazide AdvReac Unknown SEE COMMENT Verified 02/21/19 04:57 sulfamethoxazole AdvReac Unknown "FEELS Verified 02/21/19 04:57 LIKE KNIVES ARE IN MY HEAD" trimethoprim AdvReac Unknown "FEELS Verified 02/21/19 04:57 LIKE KNIVES ARE IN MY HEAD" Dust Allergy Mild SINUS Uncoded 02/21/19 04:57 INFECTIONS Home Medications Home Medications Medication Instructions Recorded Confirmed Type Eliquis 5 mg PO BID 06/15/18 02/21/19 History atorvastatin 20 mg PO QAM 06/15/18 02/21/19 History cholecalciferol (vitamin D3) 1,000 unit PO QAM 06/15/18 02/21/19 History [Vitamin D3] furosemide 40 mg PO QAM 06/15/18 02/21/19 History levetiracetam 500 mg PO BID 06/15/18 02/21/19 History lisinopril 5 mg PO QAM 06/15/18 02/21/19 History omeprazole 20 mg PO QAM 06/15/18 02/21/19 History potassium 99 mg PO TID 06/15/18 02/21/19 History trazodone 50 mg PO HS 06/15/18 02/21/19 History fexofenadine [Lulu Allergy] 180 mg PO DAILY PRN 09/18/18 02/21/19 History metoprolol tartrate 50 mg PO BID #60 tab 09/21/18 02/21/19 Rx sotalol 120 mg PO BID #180 tab 09/21/18 02/21/19 Rx fluticasone propionate [Flonase 2 spray INTRANASAL DAILY 10/23/18 02/21/19 History Allergy Relief] brinzolamide-brimonidine 1 drp OPB BID 02/21/19 02/21/19 History cephalexin 500 mg PO QID 02/21/19 02/21/19 History furosemide 40 mg PO 2XWK 02/21/19 02/21/19 History prednisone 10 mg PO DAILY 02/21/19 02/21/19 History Past Med/Surg History Medical History Seizure disorder (Chronic) single episode in 2005 Hyperlipidemia (Chronic) Atrial fibrillation (Chronic) ON ELIQUIS Chronic sinusitis (Chronic) GERD (gastroesophageal reflux disease) (Chronic) Glaucoma (Chronic) Hypertension (Chronic) Neuropathy (Chronic) Osteoarthritis (Chronic) Valvular heart disease (Chronic) MILD AR/MR/TR PER 07/2018 ECHO Surgical History S/P placement of cardiac pacemaker (Chronic) 09/18/18 History of bilateral tubal ligation (Chronic) History of cataract surgery (Chronic) B/L History of cholecystectomy (Chronic) History of dilatation and curettage (Chronic) History of tonsillectomy (Chronic) History of tooth extraction (Chronic) History of total shoulder replacement (Chronic) RIGHT REVERSE TOTAL SHOULDER S/P correction of deviated nasal septum (Chronic) Family History Other Breast cancer Social History Preferred Language: Maltese Communication Ability: Effective Visual Impairment: No Limitations Hearing Ability: Normal [place] Pruner Required: No Beliefs That Will Affect Care: None marital status: Current Living Situation: Spouse current occupational status: retired Other Information That Helps Us Care for You: No Feels Safe at Home: Yes Safety Concerns: Feels Safe At This Time Smoking Status: Former smoker Tobacco Type: cigarettes ; packs per day: 0.5 ; Cigarettes Per Day: Smoked ~1/2 ppd x ~15 years (unsure) ; Do You Dip or Chew Tobacco: No ; Second Hand Exposure: No ; Tobacco Cessation Education Requested by Patient: No Hx Alcohol Use: No Hx Substance Use: No Childhood Exposure to Second-Hand Smoke: No Review of Systems Review of Systems: As per HPI, all 10 systems reviewed, all other ROS negative Physical Exam Physical Exam: GENERAL: Comfortable, slightly anxious, no respiratory distress SKIN: Normal color, warm HEENT: [place] palpebral conjunctivae, no ptosis, dry buccal mucosa, CPAP mask in place NECK : Supple, short neck, no tenderness CHEST : Decreased breath sounds, no tenderness HEART : RRR, no obvious murmurs ABDOMEN: Some distention, nontender EXTREMITIES : Bilateral LE swelling, L>R (chronic as per patient), no LE ten derness, no other conspicuous deformities noted NEUROLOGIC : Coherent, no facial asymmetry, no other gross focality Results & Data Vital Signs (Past 12 Hours) Vital Signs Temp Pulse Pulse Resp BP BP Pulse Ox 02/21/19 06:33 67 12 187/104 H 98 02/21/19 05:54 67 12 194/94 H 97 02/21/19 04:48 95 02/21/19 04:44 72 29 H 94 02/21/19 04:31 36.9 C 71 34 H 202/97 H 95 Laboratory Results Laboratory Results WBC 24.77 K/uL (4.8-10.8) H 02/21/19 04:59 RBC 3.84 M/uL (4.2-5.4) L 02/21/19 04:59 Hgb 12.4 g/dL (12.0-16.0) 02/21/19 04:59 Hct 40.4 % (37-47) 02/21/19 04:59 MCV 105.2 fL (80-100) H 02/21/19 04:59 MCH 32.3 pg (25-34) 02/21/19 04:59 MCHC 30.7 g/dL (32-36) L 02/21/19 04:59 RDW Std Deviation 67.5 fL (36.4-46.3) H 02/21/19 04:59 RDW Coeff of Allan 17.3 % (11.5-14.5) H 02/21/19 04:59 Plt Count 272 K/uL (130-400) 02/21/19 04:59 MPV 10.6 fL (7.4-10.4) H 02/21/19 04:59 Immature Gran % (Auto) 0.6 % 02/21/19 04:59 Neut % (Auto) 84.4 % 02/21/19 04:59 Lymph % (Auto) 7.5 % 02/21/19 04:59 [place] % (Auto) 6.8 % 02/21/19 04:59 Eos % (Auto) 0.6 % 02/21/19 04:59 Baso % (Auto) 0.1 % 02/21/19 04:59 Immature Gran # (Auto) 0.14 K/uL (0.00-0.02) H 02/21/19 04:59 Neut # (Auto) 20.94 K/uL (1.4-6.5) H 02/21/19 04:59 Lymph # (Auto) 1.85 K/uL (1.2-3.4) 02/21/19 04:59 [place] # (Auto) 1.68 K/uL (0.11-0.59) H 02/21/19 04:59 Eos # (Auto) 0.14 K/uL (0-0.5) 02/21/19 04:59 Baso # (Auto) 0.02 K/uL (0-0.2) 02/21/19 04:59 Toxic Granulation 1+ 02/21/19 04:59 Toxic Vacuolation 1+ 02/21/19 04:59 Spherocytes Occasional 02/21/19 04:59 Echinocytes 1+ 02/21/19 04:59 PT 12.5 Seconds (9.0-12.0) H 02/21/19 04:59 INR 1.2 (0.9-1.1) H 02/21/19 04:59 APTT 24.5 Seconds (21.0-31.0) 02/21/19 04:59 PTT Ratio 0.9 02/21/19 04:59 Sodium 140 mmol/L (136-145) 02/21/19 04:59 Potassium 4.8 mmol/L (3.5-5.1) 02/21/19 04:59 Chloride 113 mmol/L (98-107) H 02/21/19 04:59 Carbon Dioxide 15 mmol/L (21-32) L 02/21/19 04:59 Anion Gap 12.0 (3-11) H 02/21/19 04:59 BUN 40 mg/dl (7-18) H 02/21/19 04:59 Creatinine 2.77 mg/dl (0.6-1.2) H 02/21/19 04:59 Est Cr Clr Drug Dosing 19.6 ml/min 02/21/19 04:59 Est GFR ( Amer) 19.0 02/21/19 04:59 Est GFR (Non-Af Amer) 16.4 02/21/19 04:59 BUN/Creatinine Ratio 14.4 (10-20) 02/21/19 04:59 Glucose 113 mg/dl (70-99) H 02/21/19 04:59 Lactate 5.5 mmol/L (0.4-2.0) H* 02/21/19 05:52 Calcium 8.7 mg/dl (8.5-10.1) 02/21/19 04:59 Magnesium 2.1 mg/dl (1.8-2.4) 02/21/19 04:59 Total Bilirubin 1.4 mg/dl (0.2-1) H 02/21/19 04:59 AST 31 U/L (15-37) 02/21/19 04:59 ALT 37 U/L (12-78) 02/21/19 04:59 Alkaline Phosphatase 70 U/L (45-117) 02/21/19 04:59 Troponin I 0.127 ng/ml (0-0.045) H* 02/21/19 04:59 Total Protein 6.6 gm/dl (6.4-8.2) 02/21/19 04:59 Albumin 3.4 gm/dl (3.4-5.0) 02/21/19 04:59 Globulin 3.2 gm/dl (2.5-4.0) 02/21/19 04:59 Albumin/Globulin Ratio 1.1 (0.9-2) 02/21/19 04:59 Urine Color Yellow 02/21/19 04:45 Urine Appearance Clear (Clear) 02/21/19 04:45 Urine pH 5.0 (4.5-7.5) 02/21/19 04:45 Ur Specific [place] 1.020 (1.000-1.030) 02/21/19 04:45 Urine Protein 1+ (Negative) H 02/21/19 04:45 Urine Glucose (UA) Trace (Negative) H 02/21/19 04:45 Urine Ketones Negative (Negative) 02/21/19 04:45 Urine Blood Negative (Negative) 02/21/19 04:45 Urine Nitrite Negative (Negative) 02/21/19 04:45 Urine Bilirubin Negative (Negative) 02/21/19 04:45 Urine Urobilinogen Negative (Negative) 02/21/19 04:45 Ur Leukocyte Esterase Trace (Negative) H 02/21/19 04:45 Urine WBC (Auto) 1-5 /hpf (0-5) 02/21/19 04:45 Urine RBC (Auto) 0-4 /hpf (0-4) 02/21/19 04:45 U Hyaline Cast (Auto) 5-10 /lpf (0-5) H 02/21/19 04:45 U Epithel Cells (Auto) 20-30 /lpf (0-5) H 02/21/19 04:45 Urine Bacteria (Auto) Negative (Negative) 02/21/19 04:45 Influenza Type A (PCR) Neg for Influ A (Neg) 02/21/19 04:57 Influenza Type B (PCR) Neg for Influ B (Neg) 02/21/19 04:57 Diagnostic Findings Chest x-ray as per my interpretation pulmonary congestion, atelectasis EKG as per my interpretation: Rate 75, NSR, normal axis, T wave inversion lateral leads
[2019-02-21] MEDS ORDERED: DOXYCYCLINE HYCLATE 100 MG in DEXTROSE 5% 100 ML IV STA (06:54)
[2019-02-21] MEDS ORDERED: ALBUT/IPRATROP 3MG/0.5MG NEB 3 ML VIAL NEB STA (07:07)
[2019-02-21 07:09] LABS: Base Excess ABG -6.7 mEq/L (-9-1.8); HCO3 ABG 17 mmol/L (19-24); PCO2 ABG 27 mmHg (35-46); PO2 ABG 102 mm/Hg (80-95); pH ABG 7.41 (7.35-7.45)
[2019-02-21 07:10] LABS: Allen Test Pos (Pos)
--- NOTE | 2019-02-21 08:04 | CT Scan Report ---
ABDOMEN AND PELVIS CT WITHOUT CONTRAST HISTORY: Acute generalized abdominal pain abd pain TECHNIQUE: Multiaxial CT images of the abdomen and pelvis were performed without contrast. A dose lo wering technique was utilized adhering to the principles of ALARA. COMPARISON STUDY: Chest CT of same day. FINDINGS: Partially imaged liver and bilateral pleural effusions. Bilateral groundglass opacities with intralob ular septal thickening and dependent bibasilar consolidation. Heart is upper limits of normal in size . Partially imaged pacer leads. No pericardial effusion. There is no pneumatosis or pneumoperitoneum. Cholecystectomy. The unenhanced liver, spleen, pancreas and adrenal glands are unremarkable. There is mild nonspecific bilateral perinephric stranding. Ureters are unremarkable. [place] catheter noted wit hin a decompressed urinary bladder lumen. Uterus and adnexa appear unremarkable. Calcifications of th e right adnexal distribution are present. Extensive calcified plaque of the abdominal aorta and iliac arteries without aneurysm. There is no adenopathy. No bowel obstruction or bowel wall thickening. Co lonic diverticulosis without acute diverticulitis. There are several air-fluid levels noted within no ndilated loops of large bowel. Noninflamed appendix. Additionally, there are a few scattered air-flui d levels noted within nondilated loops of ileum within the pelvis. Tiny fat filled periumbilical wei ia. 10 mm anterolisthesis L4 on L5, likely secondary to long-standing severe facet arthrosis. Degener ative changes of the spine, pelvis and hips. 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 IMPRESSION: 1. No bowel obstruction or bowel wall thickening. 2. Colonic diverticulosis without acute diverticulitis. 3. Scattered air-fluid levels within nondilated loops of ileum and colon may reflect a nonspecific en teritis with diarrheal illness. Correlate clinically. 4. Cholecystectomy. 5. Pulmonary edema, pleural effusions and bibasilar dependent consolidation suggestive of compressive atelectasis. 6. Mild avascular necrosis without articular collapse of the right femoral head. Electronically signed by: Arpan Singh M.D. 02/21/2019 8:02 AM
--- NOTE | 2019-02-21 08:05 | CT Scan Report ---
CT chest wo con CLINICAL HISTORY: 73 years-old Female presenting with cough. TECHNIQUE: Multidetector CT imaging of the chest was performed without the use of intravenous contras t. IV contrast: None. One or more dose lowering techniques were used consistent with the principles o f ALARA (as low as reasonably achievable), including automatic exposure control, mA or kV adjustment to individual patient size, and/or use of iterative reconstruction. COMPARISON: Chest x-ray performed earlier today. CT DOSE (mGy.cm): The estimated cumulative dose is 1368.97 mGy.cm. FINDINGS: [employer] topogram: Left subclavian pacer with leads to the right atrium and right ventricular apex. Chol ecystectomy clips. Partially visualized reverse total right shoulder arthroplasty. Soft tissues: Normal thyroid and thoracic inlet. Scattered largely subcentimeter mediastinal lymph no carol nonspecific and possibly reactive. The largest lymph node has a benign morphology within normal f atty hilum though a short axis of 14 mm. Evaluation of the kylah limited in the absence of intravenous contrast. Atherosclerosis of the aorta. Left subclavian pacer with leads to the right atrial appenda ge and right ventricular apex. Borderline enlargement of the heart. Coronary artery and aortic valve calcification. Moderate simple appearing bilateral pleural effusions. No pericardial effusion. Upper abdomen normal. Lungs and airways: No pneumothorax. Central airways patent. Pulmonary arteries may be minimally enlar ged relative to adjacent bronchi. Significant smooth interlobular septal thickening diffusely. Depend ent consolidation volume loss in the lower lobes likely passive atelectasis. Additionally patchy grou ndglass infiltrates diffusely. Musculoskeletal: Degenerative changes of the spine. IMPRESSION: 1. Moderate congestive heart failure with moderate pulmonary edema and moderate bilateral pleural ef fusions. 2. Extensive lower lobe passive atelectasis in the setting of effusions. 3. Prominent mediastinal lymph nodes may be related to venolymphatic congestive change. Electronically signed by: Abdullahi Bar M.D. 02/21/2019 8:04 AM
[2019-02-21] MEDS ORDERED: OXYCODONE HCL IR 5 MG TAB (IMMEDIATE RELEASE) PO PRN (08:24)
[2019-02-21] MEDS ORDERED: ACETAMINOPHEN 325 MG TAB PO PRN (08:24)
[2019-02-21] MEDS ORDERED: SODIUM CHLORIDE 0.9% 1000ML 1,000 ML IV SCH (08:24)
[2019-02-21] MEDS ORDERED: HYDROmorphone INJ 0.5 MG/0.5 ML SYR IV PRN (08:24)
[2019-02-21] MEDS: LEVALBUTEROL 1.25MG/0.5ML NEB INH SCH ×3 (08:57→19:22)
[2019-02-21] MEDS: IPRATROPIUM BROMIDE NEB SOLN 0.02% 2.5 ML VIAL INH SCH ×3 (08:57→19:23)
[2019-02-21] MEDS: SOTALOL HCL 80 MG TAB PO SCH ×2 (09:50→19:54)
[2019-02-21] MEDS: PANTOprazole 40 MG TAB PO SCH (09:51)
[2019-02-21] MEDS: BRIMONIDINE TARTRATE 0.2% 5ML OPB SCH ×2 (09:51→19:55)
[2019-02-21] MEDS: levETIRAcetam 500 MG TAB PO SCH ×2 (09:51→19:54)
[2019-02-21] MEDS: FLUTICASONE PROPIONATE NA SPR 16 GM BTL SCH ×2 (09:51→09:57)
[2019-02-21] MEDS: BRINZOLAMIDE (AZOPT) OPS 10 ML BTL OPB SCH ×2 (09:52→19:55)
[2019-02-21] MEDS: METOPROLOL TARTRATE 50 MG TAB PO SCH ×2 (09:57→19:54)
[2019-02-21] MEDS ORDERED: XOPENEX/ATROVENT 1.25mg/0.5MG NEB COMBO NEB SCH (13:00)
[2019-02-21] MEDS: PIPERACILLIN/TAZOBACTAM 3.375 GM in DEXTROSE 5% 100 ML IV SCH (13:40)
[2019-02-21] MEDS ORDERED: FUROSEMIDE 80 MG in SYRINGE 0 ML IV ONE (17:30)
--- NOTE | 2019-02-21 18:11 | Communication Note ---
Date of Service: February 21, 2019 Pt was seen and examined Lying in bed with mild respiratory distress She said that her breathing improves significantly She said that she continues to cough Denies any chest pain, palpitation and dizziness Exam General- No acute distress Head- atraumatic Eyes- PERRL, EOMI, ENT- oropharynx clear Neck- supple, no JVD Lungs- +coarse BS Heart- regular rhythm; no murmur Abdomen- normal bowel sounds, soft, nontender Extremities- no calf tenderness, +edema Neuro- alert, oriented x 3; PERRL, EOMI; no facial palsy; no dysarthria Skin- warm & dry A/P Worsening SOB Possible related to CHF exacerbation VS pneumonia vs pleural effusion CT chest showed moderate congestive heart failure with moderate pulmonary edema and moderate bilateral pleural effusions. patchy ground glass infiltrates diffusely. ECHO done today showed severe mitral and tricuspid regurgitation Received Lasix 40mg this morning Continue IV abx with doxy and Zosyn Cardiology consulted Case discussed with cardiology recommended to give additional Lasix 80mg IVx1 Will repeat CXR in am Continue monitor closely Sepsis Meet criteria on admission with elevated WBC, elevated RR and lactic CT chest showed patchy ground glass infiltrate lactic acid normalize Continue IV abx with doxy and Zosyn Blood cx pending Monitor CBC NADIA Creatinine on admission 2.7 Received IV lasix to diuresis Consult Nephro Monitor BMP Elevated troponin Possible related to demand ischemia due to CHF exacerbation and NADIA with creatinine 2.7 Troponin on admission 0.12 then peak to 0.28, now trending down to 0.25 EKG showed no acute ischemic changes Echo showed no wall motion abnormality Denies any chest pain Afib Rate controlled on metoprolol and sotalol Will hold Eliquis tonight dose due to NADIA Continue monitor closely CODE STATUS FULL CODE
[2019-02-21] MEDS: DOXYCYCLINE HYCLATE 100 MG CAP PO SCH (19:55)
--- NOTE | 2019-02-21 23:10 | Emergency Department Note ---
Entered by Luz Yost acting as a scribe for Kimberly Arzate MD History of Present Illness General Chief complaint: Respiratory Distress Stated complaint: RESPIRATORY DIFFICULTY Time Seen by Provider: 02/21/19 04:26 Source: patient and EMS Mode of arrival: EMS History of Present Illness Provider complaint: respiratory distress Onset (ago): minute(s) (prior to arrival) Location: chest Pain Consistency: + other (improving) Quality: + other (respiratory distress) Relieved By: + other (BiPAP treatment) Associated symptoms: + shortness of breath The patient, who is a 73 year old female with a medical history of atrial fibrillation, seizures and hypertension, presents to the Emergency Room with complaints of respiratory distress that occurred prior to arrival. EMS states that the patient was feeling generally sick and experienced shortness of breath for the past week. The patient states that she is feeling much better on BiPAP. Home Medications Home Medications Medication Instructions Recorded Confirmed Type Eliquis 5 mg PO BID 06/15/18 02/21/19 History atorvastatin 20 mg PO QAM 06/15/18 02/21/19 History cholecalciferol (vitamin D3) 1,000 unit PO QAM 06/15/18 02/21/19 History [Vitamin D3] furosemide 40 mg PO QAM 06/15/18 02/21/19 History levetiracetam 500 mg PO BID 06/15/18 02/21/19 History lisinopril 5 mg PO QAM 06/15/18 02/21/19 History omeprazole 20 mg PO QAM 06/15/18 02/21/19 History potassium 99 mg PO TID 06/15/18 02/21/19 History trazodone 50 mg PO HS 06/15/18 02/21/19 History fexofenadine [Lulu Allergy] 180 mg PO DAILY PRN 09/18/18 02/21/19 History metoprolol tartrate 50 mg PO BID #60 tab 09/21/18 02/21/19 Rx sotalol 120 mg PO BID #180 tab 09/21/18 02/21/19 Rx fluticasone propionate [Flonase 2 spray INTRANASAL DAILY 10/23/18 02/21/19 History Allergy Relief] brinzolamide-brimonidine 1 drp OPB BID 02/21/19 02/21/19 History cephalexin 500 mg PO QID 02/21/19 02/21/19 History furosemide 40 mg PO 2XWK 02/21/19 02/21/19 History prednisone 10 mg PO DAILY 02/21/19 02/21/19 History Allergies Allergy/AdvReac Type Severity Reaction Status Date / Time phenytoin Allergy Intermediate HIVES AND Verified 02/21/19 04:57 MOUTH ULCERS codeine AdvReac Mild VOMITTING Verified 02/21/19 04:57 Bactrim AdvReac Unknown "FEELS Verified 10/23/18 12:53 LIKE KNIVES ARE IN MY HEAD" hydrochlorothiazide AdvReac Unknown SEE COMMENT Verified 02/21/19 04:57 sulfamethoxazole AdvReac Unknown "FEELS Verified 02/21/19 04:57 LIKE KNIVES ARE IN MY HEAD" trimethoprim AdvReac Unknown "FEELS Verified 02/21/19 04:57 LIKE KNIVES ARE IN MY HEAD" Dust Allergy Mild SINUS Uncoded 02/21/19 04:57 INFECTIONS Past Med/Surg History Medical History Seizure disorder (Chronic) single episode in 2005 Hyperlipidemia (Chronic) Atrial fibrillation (Chronic) ON ELIQUIS Chronic sinusitis (Chronic) GERD (gastroesophageal reflux disease) (Chronic) Glaucoma (Chronic) Hypertension (Chronic) Neuropathy (Chronic) Osteoarthritis (Chronic) Valvular heart disease (Chronic) MILD AR/MR/TR PER 07/2018 ECHO Surgical History S/P placement of cardiac pacemaker (Chronic) 09/18/18 History of bilateral tubal ligation (Chronic) History of cataract surgery (Chronic) B/L History of cholecystectomy (Chronic) History of dilatation and curettage (Chronic) History of tonsillectomy (Chronic) History of tooth extraction (Chronic) History of total shoulder replacement (Chronic) RIGHT REVERSE TOTAL SHOULDER S/P correction of deviated nasal septum (Chronic) Family History Other Breast cancer Social History Preferred Language: Indonesian Communication Ability: Effective Visual Impairment: No Limitations Hearing Ability: Normal 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 Required: No Beliefs That Will Affect Care: None marital status: Current Living Situation: Spouse current occupational status: retired Other Information That Helps Us Care for You: No Feels Safe at Home: Yes Safety Concerns: Feels Safe At This Time Smoking Status: Former smoker Tobacco Type: cigarettes ; packs per day: 0.5 ; Cigarettes Per Day: Smoked ~1/2 ppd x ~15 years (unsure) ; Do You Dip or Chew Tobacco: No ; Second Hand Exposure: No ; Tobacco Cessation Education Requested by Patient: No Hx Alcohol Use: No Hx Substance Use: No Childhood Exposure to Second-Hand Smoke: No Review of Systems See HPI for pertinent positives & negatives. and A total of 10 systems reviewed and were otherwise negative Physical Exam Vital Signs Vital Signs - 24 hr 02/21/19 04:31 02/21/19 04:44 02/21/19 04:48 Temperature 36.9 C Temperature Source Oral Sepsis Recent Fever Within 48 Hours No Sepsis New/Unexplained Change in Mental Status No Sepsis Action Taken by Nursing No Action Required Pulse Rate 71 72 Pulse Rate [Foot] Pulse Rhythm Regular Pulse Strength Normal Respiratory Rate 34 H 29 H Respiratory Effort / Characteristics Non-Labored Spontaneous Non-Labored Spontaneous Respiratory Depth Normal Respiratory Pattern Regular Blood Pressure 202/97 H Blood Pressure [Right Arm] Blood Pressure Mean 132 Blood Pressure Mean [Right Arm] Blood Pressure Position Lying Pulse Oximetry 95 94 95 Oxygen Delivery Method CPAP CPAP Oxygen Flow Rate 12 Fraction of Inspired Oxygen 50 50 SaO2/FiO2 Ratio 190 02/21/19 05:54 02/21/19 06:33 Temperature Temperature Source Sepsis Recent Fever Within 48 Hours Sepsis New/Unexplained Change in Mental Status Sepsis Action Taken by Nursing Pulse Rate Pulse Rate [Foot] 67 67 Pulse Rhythm Pulse Strength Respiratory Rate 12 12 Respiratory Effort / Characteristics Respiratory Depth Respiratory Pattern Blood Pressure Blood Pressure [Right Arm] 194/94 H 187/104 H Blood Pressure Mean Blood Pressure Mean [Right Arm] 127 131 Blood Pressure Position Pulse Oximetry 97 98 Oxygen Delivery Method CPAP CPAP Oxygen Flow Rate Fraction of Inspired Oxygen SaO2/FiO2 Ratio Vital signs reviewed. General: acutely ill-appearing, on BiPAP. HEENT: No scleral icterus, PERRLA, neck supple. Atraumatic. Cardiovascular: Rate controlled with occasional ectopy, no extra sounds. Pulmonary: Clear to auscultation bilaterally, increased work of breathing. Course breast sounds bilaterally particularly at the bases. Abdomen: Soft, nontender, nondistended, positive bowel sounds. Musculoskeletal: Atraumatic, no peripheral edema. Neurologic: Patient awake alert and oriented x 3 Skin: Warm, dry, no rash Course 0429: Past medical records reviewed. The patient was evaluated in room B12. A complete history and physical exam was performed. 0452: The patient was administered Lasix. 0605: [facility] He will evaluate the patient for further management. Consultations Consultation #1: 0605: I [facility] the [facility] He will evaluate the patient for further management. Time: 06:05 Administered Medications Brimonidine Tartrate (Alphagan 0.2%) 1 drops OPB BID ELENO Stop: 03/23/19 08:59 Last Admin: 02/23/19 07:56 Dose: 1 drops Documented by: [id number] Admin: 02/22/19 21:45 Dose: 1 drops Documented by: [id number] Admin: 02/22/19 07:25 Dose: 1 drops Documented by: [id number] Admin: 02/21/19 19:55 Dose: 1 drops Documented by: [id number] Admin: 02/21/19 09:51 Dose: 1 drops Documented by: [id number] Brinzolamide (Azopt) 1 drops OPB BID ELENO Stop: 03/23/19 08:59 Last Admin: 02/23/19 07:55 Dose: 1 drops Documented by: [id number] Admin: 02/22/19 21:46 Dose: 1 drops Documented by: [id number] Admin: 02/22/19 07:25 Dose: 1 drops Documented by: [id number] Admin: 02/21/19 19:55 Dose: 1 drops Documented by: [id number] Admin: 02/21/19 09:52 Dose: 1 drops Documented by: [id number] Doxycycline Hyclate (Vibramycin) 100 mg PO Q12H ELENO Stop: 02/28/19 18:59 Last Admin: 02/23/19 07:54 Dose: 100 mg Documented by: [id number] Admin: 02/22/19 18:30 Dose: 100 mg Documented by: [id number] Admin: 02/22/19 07:26 Dose: 100 mg Documented by: [id number] Admin: 02/21/19 19:55 Dose: 100 mg Documented by: [id number] Fluticasone Propionate (Flonase) 2 sprays NA DAILY ELENO Stop: 03/23/19 08:59 Last Admin: 02/23/19 07:56 Dose: Not Given Documented by: [id number] Admin: 02/22/19 07:27 Dose: Not Given Documented by: [id number] Admin: 02/21/19 09:57 Dose: Not Given Documented by: [id number] Piperacillin Sod/Tazobactam (Sod 3.375 gm/ Dextrose) 115 mls @ 28.75 mls/hr IV Q12H ELENO; Protocol Stop: 02/28/19 05:59 Last Infusion: 02/23/19 17:10 Dose: 0 mls/hr Documented by: [id number] Admin: 02/23/19 13:07 Dose: 28.8 mls/hr Documented by: [id number] Infusion: 02/23/19 07:36 Dose: 0 mls/hr Documented by: [id number] Admin: 02/23/19 03:20 Dose: 28.8 mls/hr Documented by: [id number] Infusion: 02/22/19 16:59 Dose: 0 mls/hr Documented by: [id number] Admin: 02/22/19 13:09 Dose: 30 mls/hr Documented by: [id number] Infusion: 02/22/19 06:12 Dose: 0 mls/hr Documented by: [id number] Admin: 02/22/19 02:05 Dose: 28.8 mls/hr Documented by: [id number] Infusion: 02/21/19 17:30 Dose: 0 mls/hr Documented by: [id number] Admin: 02/21/19 13:40 Dose: 30 mls/hr Documented by: [id number] Ipratropium Peotone (Atrovent 0.02% 0.5mg/2.5ml) 0.5 mg INH Q6R ELENO Stop: 03/23/19 08:23 Last Admin: 02/23/19 18:51 Dose: 0.5 mg Documented by: [id number] Admin: 02/23/19 13:37 Dose: 0.5 mg Documented by: [id number] Admin: 02/23/19 07:14 Dose: 0.5 mg Documented by: [id number] Admin: 02/23/19 00:48 Dose: Not Given Documented by: [id number] Admin: 02/22/19 18:43 Dose: 0.5 mg Documented by: [id number] Admin: 02/22/19 13:12 Dose: 0.5 mg Documented by: [id number] Admin: 02/22/19 07:06 Dose: 0.5 mg Documented by: [id number] Admin: 02/22/19 00:49 Dose: 0.5 mg Documented by: [id number] Admin: 02/21/19 19:23 Dose: 0.5 mg Documented by: [id number] Admin: 02/21/19 13:20 Dose: 0.5 mg Documented by: [id number] Admin: 02/21/19 08:57 Dose: Not Given Documented by: [id number] Levalbuterol HCl (Xopenex 1.25mg/0.5ml Neb) 1.25 mg INH Q6R ELENO Stop: 03/23/19 08:23 Last Admin: 02/23/19 18:51 Dose: 1.25 mg Documented by: [id number] Admin: 02/23/19 13:37 Dose: 1.25 mg Documented by: [id number] Admin: 02/23/19 07:14 Dose: 1.25 mg Documented by: [id number] Admin: 02/23/19 00:48 Dose: Not Given Documented by: [id number] Admin: 02/22/19 18:43 Dose: 1.25 mg Documented by: [id number] Admin: 02/22/19 13:12 Dose: 1.25 mg Documented by: [id number] Admin: 02/22/19 07:05 Dose: 1.25 mg Documented by: [id number] Admin: 02/22/19 00:49 Dose: 1.25 mg Documented by: [id number] Admin: 02/21/19 19:22 Dose: 1.25 mg Documented by: [id number] Admin: 02/21/19 13:20 Dose: 1.25 mg Documented by: [id number] Admin: 02/21/19 08:57 Dose: Not Given Documented by: [id number] Levetiracetam (Keppra) 500 mg PO BID ELENO Stop: 03/23/19 08:59 Last Admin: 02/23/19 07:54 Dose: 500 mg Documented by: [id number] Admin: 02/22/19 21:42 Dose: 500 mg Documented by: [id number] Admin: 02/22/19 07:26 Dose: 500 mg Documented by: [id number] Admin: 02/21/19 19:54 Dose: 500 mg Documented by: [id number] Admin: 02/21/19 09:51 Dose: 500 mg Documented by: [id number] Pantoprazole Sodium (Protonix) 40 mg PO QAM ELENO Stop: 03/23/19 08:59 Last Admin: 02/23/19 07:54 Dose: 40 mg Documented by: [id number] Admin: 02/22/19 07:26 Dose: 40 mg Documented by: [id number] Admin: 02/21/19 09:51 Dose: 40 mg Documented by: [id number] Prednisone (Prednisone) 10 mg PO DAILY ELENO Stop: 03/24/19 08:59 Last Admin: 02/23/19 07:54 Dose: 10 mg Documented by: [id number] Admin: 02/22/19 07:26 Dose: 10 mg Documented by: [id number] Discontinued Medications Albuterol (Duoneb) 3 ml NEB NOW STA Stop: 02/21/19 07:08 Last Admin: 02/21/19 08:01 Dose: 3 ml Documented by: [id number] Amlodipine Besylate (Norvasc) 2.5 mg PO NOW STA Stop: 02/23/19 01:00 Last Admin: 02/23/19 01:45 Dose: 2.5 mg Documented by: [id number] Apixaban (Eliquis) 5 mg PO BID ELENO Stop: 03/24/19 20:59 Last Admin: 02/23/19 07:55 Dose: 5 mg Documented by: [id number] Admin: 02/22/19 21:41 Dose: 5 mg Documented by: [id number] Furosemide (Lasix) 40 mg IV NOW STA Stop: 02/21/19 04:43 Last Admin: 02/21/19 04:52 Dose: 40 mg Documented by: [id number] Piperacillin Sod/Tazobactam Sod (Zosyn) 4.5 gm in 120 mls @ 240 mls/hr IV NOW ONE Stop: 02/21/19 06:11 Last Infusion: 02/21/19 06:28 Dose: 0 mls/hr Documented by: [id number] Admin: 02/21/19 05:57 Dose: 240 mls/hr Documented by: [id number] Sodium Chloride (Nss) 250 mls @ 999 mls/hr IV .Q16M ONE Stop: 02/21/19 06:41 Last Infusion: 02/21/19 06:51 Dose: 0 mls/hr Documented by: [id number] Admin: 02/21/19 06:32 Dose: 999 mls/hr Documented by: [id number] Albumin Human (Albumin 25%) 50 mls @ 50 mls/hr IV ONE ONE Stop: 02/21/19 07:49 Last Admin: 02/21/19 11:24 Dose: Not Given Documented by: [id number] Doxycycline Hyclate 100 mg/ (Dextrose) 110 mls @ 50 mls/hr IV NOW STA Stop: 02/21/19 09:05 Last Infusion: 02/21/19 09:48 Dose: 0 mls/hr Documented by: [id number] Admin: 02/21/19 07:25 Dose: 50 mls/hr Documented by: [id number] Sodium Chloride (Nss 1000ml) 1,000 mls @ 50 mls/hr IV .Q20H ELENO Stop: 03/23/19 08:23 Last Infusion: 02/21/19 11:50 Dose: 0 mls/hr Documented by: [id number] Admin: 02/21/19 09:50 Dose: 50 mls/hr Documented by: [id number] Albumin Human (Albumin 25%) 50 mls @ 50 mls/hr IV ONE ONE Stop: 02/21/19 12:44 Last Infusion: 02/21/19 13:00 Dose: 0 mls/hr Documented by: [id number] Admin: 02/21/19 11:50 Dose: 50 mls/hr Documented by: [id number] Furosemide 80 mg/ Syringe 8 mls @ 4 mls/min IV ONE ONE Stop: 02/21/19 17:31 Last Admin: 02/21/19 18:15 Dose: 4 mls/min Documented by: [id number] Methylprednisolone (Solumedrol) 40 mg IV NOW STA Stop: 02/21/19 06:12 Last Admin: 02/21/19 06:32 Dose: 40 mg Documented by: [id number] Metoprolol Tartrate (Lopressor) 2.5 mg IV NOW STA Stop: 02/21/19 06:16 Last Admin: 02/21/19 06:36 Dose: 2.5 mg Documented by: [id number] Metoprolol Tartrate (Lopressor) 50 mg PO BID ELENO Stop: 03/23/19 08:59 Last Admin: 02/23/19 07:54 Dose: 50 mg Documented by: [id number] Admin: 02/22/19 21:42 Dose: 50 mg Documented by: [id number] Admin: 02/22/19 07:26 Dose: 50 mg Documented by: [id number] Admin: 02/21/19 19:54 Dose: 50 mg Documented by: [id number] Admin: 02/21/19 09:57 Dose: 50 mg Documented by: [id number] Potassium Chloride (Klor-Con M20) 20 meq PO NOW STA Stop: 02/22/19 12:30 Last Admin: 02/22/19 13:09 Dose: 20 meq Documented by: [id number] Potassium Chloride (Klor-Con M20) 40 meq PO ONE ONE Stop: 02/23/19 13:30 Last Admin: 02/23/19 14:27 Dose: 40 meq Documented by: [id number] Sotalol HCl (Betapace) 120 mg PO BID ELENO Stop: 03/23/19 08:59 Last Admin: 02/23/19 07:54 Dose: 120 mg Documented by: [id number] Admin: 02/22/19 21:44 Dose: 120 mg Documented by: [id number] Admin: 02/22/19 07:26 Dose: 120 mg Documented by: [id number] Admin: 02/21/19 19:54 Dose: 120 mg Documented by: [id number] Admin: 02/21/19 09:50 Dose: 120 mg Documented by: [id number] Medical Decision Making Differential Diagnosis Differential diagnosis includes: infection, reactive airway disease, pneumonia, pneumothorax, COPD, CHF, cardiac ischemia, pulmonary embolism, musculoskeletal, gastrointestinal as well as others were entertained. Medical Records Attestation: I reviewed the patient's medical records. Home Medications Current Medication List: was personally reviewed by me Laboratory Data Attestation: I reviewed the patient's lab results. Result diagrams: 02/23/19 08:26 02/23/19 08:26 Lab Results 02/21/19 02/21/19 02/21/19 Range/Units 04:45 04:57 04:59 WBC 24.77 H (4.8-10.8) K/uL RBC 3.84 L (4.2-5.4) M/uL Hgb 12.4 (12.0-16.0) g/dL Hct 40.4 (37-47) % MCV 105.2 H (80-100) fL MCH 32.3 (25-34) pg MCHC 30.7 L (32-36) g/dL RDW Std Deviation 67.5 H (36.4-46.3) fL RDW Coeff of Allan 17.3 H (11.5-14.5) % Plt Count 272 (130-400) K/uL MPV 10.6 H (7.4-10.4) fL Immature Gran % (Auto) 0.6 % Neut % (Auto) 84.4 % Lymph % (Auto) 7.5 % Mcleod % (Auto) 6.8 % Eos % (Auto) 0.6 % Baso % (Auto) 0.1 % Immature Gran # (Auto) 0.14 H (0.00-0.02) K/uL Neut # (Auto) 20.94 H (1.4-6.5) K/uL Lymph # (Auto) 1.85 (1.2-3.4) K/uL Mcleod # (Auto) 1.68 H (0.11-0.59) K/uL Eos # (Auto) 0.14 (0-0.5) K/uL Baso # (Auto) 0.02 (0-0.2) K/uL Toxic Granulation 1+ Toxic Vacuolation 1+ Spherocytes Occasional Echinocytes 1+ PT (9.0-12.0) Seconds INR (0.9-1.1) APTT (21.0-31.0) Seconds PTT Ratio ABG pH (7.35-7.45) ABG pCO2 (35-46) mmHg ABG pO2 (80-95) mm/Hg ABG HCO3 (19-24) mmol/L ABG O2 Saturation (90-95) % ABG Base Excess (-9-1.8) mEq/L Bryan Test (Pos) Barometric Pressure mm/Hg Oxygen Given Sodium (136-145) mmol/L Potassium (3.5-5.1) mmol/L Chloride (98-107) mmol/L Carbon Dioxide (21-32) mmol/L Anion Gap (3-11) BUN (7-18) mg/dl Creatinine (0.6-1.2) mg/dl Est Cr Clr Drug Dosing ml/min Est GFR ( Amer) Est GFR (Non-Af Amer) BUN/Creatinine Ratio (10-20) Glucose (70-99) mg/dl Lactate (0.4-2.0) mmol/L Calcium (8.5-10.1) mg/dl Magnesium (1.8-2.4) mg/dl Total Bilirubin (0.2-1) mg/dl AST (15-37) U/L ALT (12-78) U/L Alkaline Phosphatase (45-117) U/L Troponin I (0-0.045) ng/ml Total Protein (6.4-8.2) gm/dl Albumin (3.4-5.0) gm/dl Globulin (2.5-4.0) gm/dl Albumin/Globulin Ratio (0.9-2) Lipase (73-393) U/L Urine Color Yellow Urine Appearance Clear (Clear) Urine pH 5.0 (4.5-7.5) Ur Specific [place] 1.020 (1.000-1.030) Urine Protein 1+ H (Negative) Urine Glucose (UA) Trace H (Negative) Urine Ketones Negative (Negative) Urine Blood Negative (Negative) Urine Nitrite Negative (Negative) Urine Bilirubin Negative (Negative) Urine Urobilinogen Negative (Negative) Ur Leukocyte Esterase Trace H (Negative) Urine WBC (Auto) 1-5 (0-5) /hpf Urine RBC (Auto) 0-4 (0-4) /hpf U Hyaline Cast (Auto) 5-10 H (0-5) /lpf U Epithel Cells (Auto) 20-30 H (0-5) /lpf Urine Bacteria (Auto) Negative (Negative) Influenza Type A (PCR) Neg for Influ A (Neg) Influenza Type B (PCR) Neg for Influ B (Neg) 02/21/19 02/21/19 02/21/19 Range/Units 04:59 04:59 04:59 WBC (4.8-10.8) K/uL RBC (4.2-5.4) M/uL Hgb (12.0-16.0) g/dL Hct (37-47) % MCV (80-100) fL MCH (25-34) pg MCHC (32-36) g/dL RDW Std Deviation (36.4-46.3) fL RDW Coeff of Allan (11.5-14.5) % Plt Count (130-400) K/uL MPV (7.4-10.4) fL Immature Gran % (Auto) % Neut % (Auto) % Lymph % (Auto) % Mcleod % (Auto) % Eos % (Auto) % Baso % (Auto) % Immature Gran # (Auto) (0.00-0.02) K/uL Neut # (Auto) (1.4-6.5) K/uL Lymph # (Auto) (1.2-3.4) K/uL Mcleod # (Auto) (0.11-0.59) K/uL Eos # (Auto) (0-0.5) K/uL Baso # (Auto) (0-0.2) K/uL Toxic Granulation Toxic Vacuolation Spherocytes Echinocytes PT 12.5 H (9.0-12.0) Seconds INR 1.2 H (0.9-1.1) APTT 24.5 (21.0-31.0) Seconds PTT Ratio 0.9 ABG pH (7.35-7.45) ABG pCO2 (35-46) mmHg ABG pO2 (80-95) mm/Hg ABG HCO3 (19-24) mmol/L ABG O2 Saturation (90-95) % ABG Base Excess (-9-1.8) mEq/L Bryan Test (Pos) Barometric Pressure mm/Hg Oxygen Given Sodium 140 (136-145) mmol/L Potassium 4.8 (3.5-5.1) mmol/L Chloride 113 H (98-107) mmol/L Carbon Dioxide 15 L (21-32) mmol/L Anion Gap 12.0 H (3-11) BUN 40 H (7-18) mg/dl Creatinine 2.77 H (0.6-1.2) mg/dl Est Cr Clr Drug Dosing 19.6 ml/min Est GFR ( Amer) 19.0 Est GFR (Non-Af Amer) 16.4 BUN/Creatinine Ratio 14.4 (10-20) Glucose 113 H (70-99) mg/dl Lactate (0.4-2.0) mmol/L Calcium 8.7 (8.5-10.1) mg/dl Magnesium 2.1 (1.8-2.4) mg/dl Total Bilirubin 1.4 H (0.2-1) mg/dl AST 31 (15-37) U/L ALT 37 (12-78) U/L Alkaline Phosphatase 70 (45-117) U/L Troponin I 0.127 H* (0-0.045) ng/ml Total Protein 6.6 (6.4-8.2) gm/dl Albumin 3.4 (3.4-5.0) gm/dl Globulin 3.2 (2.5-4.0) gm/dl Albumin/Globulin Ratio 1.1 (0.9-2) Lipase (73-393) U/L Urine Color Urine Appearance (Clear) Urine pH (4.5-7.5) Ur Specific [place] (1.000-1.030) Urine Protein (Negative) Urine Glucose (UA) (Negative) Urine Ketones (Negative) Urine Blood (Negative) Urine Nitrite (Negative) Urine Bilirubin (Negative) Urine Urobilinogen (Negative) Ur Leukocyte Esterase (Negative) Urine WBC (Auto) (0-5) /hpf Urine RBC (Auto) (0-4) /hpf U Hyaline Cast (Auto) (0-5) /lpf U Epithel Cells (Auto) (0-5) /lpf Urine Bacteria (Auto) (Negative) Influenza Type A (PCR) (Neg) Influenza Type B (PCR) (Neg) 02/21/19 02/21/19 02/21/19 Range/Units 04:59 05:52 06:54 WBC (4.8-10.8) K/uL RBC (4.2-5.4) M/uL Hgb (12.0-16.0) g/dL Hct (37-47) % MCV (80-100) fL MCH (25-34) pg MCHC (32-36) g/dL RDW Std Deviation (36.4-46.3) fL RDW Coeff of Allan (11.5-14.5) % Plt Count (130-400) K/uL MPV (7.4-10.4) fL Immature Gran % (Auto) % Neut % (Auto) % Lymph % (Auto) % Mcleod % (Auto) % Eos % (Auto) % Baso % (Auto) % Immature Gran # (Auto) (0.00-0.02) K/uL Neut # (Auto) (1.4-6.5) K/uL Lymph # (Auto) (1.2-3.4) K/uL Mcleod # (Auto) (0.11-0.59) K/uL Eos # (Auto) (0-0.5) K/uL Baso # (Auto) (0-0.2) K/uL Toxic Granulation Toxic Vacuolation Spherocytes Echinocytes PT (9.0-12.0) Seconds INR (0.9-1.1) APTT (21.0-31.0) Seconds PTT Ratio ABG pH 7.41 (7.35-7.45) ABG pCO2 27 L (35-46) mmHg ABG pO2 102 H (80-95) mm/Hg ABG HCO3 17 L (19-24) mmol/L ABG O2 Saturation 98.0 H (90-95) % ABG Base Excess -6.7 (-9-1.8) mEq/L Bryan Test Pos (Pos) Barometric Pressure 735.2 mm/Hg Oxygen Given 50% Sodium (136-145) mmol/L Potassium (3.5-5.1) mmol/L Chloride (98-107) mmol/L Carbon Dioxide (21-32) mmol/L Anion Gap (3-11) BUN (7-18) mg/dl Creatinine (0.6-1.2) mg/dl Est Cr Clr Drug Dosing ml/min Est GFR ( Amer) Est GFR (Non-Af Amer) BUN/Creatinine Ratio (10-20) Glucose (70-99) mg/dl Lactate 5.5 H* (0.4-2.0) mmol/L Calcium (8.5-10.1) mg/dl Magnesium (1.8-2.4) mg/dl Total Bilirubin (0.2-1) mg/dl AST (15-37) U/L ALT (12-78) U/L Alkaline Phosphatase (45-117) U/L Troponin I (0-0.045) ng/ml Total Protein (6.4-8.2) gm/dl Albumin (3.4-5.0) gm/dl Globulin (2.5-4.0) gm/dl Albumin/Globulin Ratio (0.9-2) Lipase 244 (73-393) U/L Urine Color Urine Appearance (Clear) Urine pH (4.5-7.5) Ur Specific [place] (1.000-1.030) Urine Protein (Negative) Urine Glucose (UA) (Negative) Urine Ketones (Negative) Urine Blood (Negative) Urine Nitrite (Negative) Urine Bilirubin (Negative) Urine Urobilinogen (Negative) Ur Leukocyte Esterase (Negative) Urine WBC (Auto) (0-5) /hpf Urine RBC (Auto) (0-4) /hpf U Hyaline Cast (Auto) (0-5) /lpf U Epithel Cells (Auto) (0-5) /lpf Urine Bacteria (Auto) (Negative) Influenza Type A (PCR) (Neg) Influenza Type B (PCR) (Neg) Imaging Data Attestation: I personally reviewed and interpreted this imaging study as follows: My Impression: Chest XRAY: Fluid overload pacemaker in place right shoulder replacement plate like atelectasis of the left base ECG Data Attestation: I personally reviewed and interpreted this ECG as follows: Indication: + SOB/dyspnea Rate (beats per minute): 74 Rhythm: + sinus rhythm ECG Intervals/blocks: + Normal QT ECG Findings: + Other (Premature supraventricular complexes; Poor quality baseline for interpretation; No acute ischemia) Blood Pressure Blood Pressure Findings: Elevated blood pressure Blood Pressure Disposition: further management by hospitalist MDM Narrative This pt was evaluated and appeared to be in no distress, on bipap. IV access was obtained and lab work was drawn. O2 sats were stable on bipap and pt had comfortabel WOB. CXR confirmed CHF. Pt was given 40 mg IV lasix. EKG reveals no evidence of acute ischemia. Lab work reveals ARF with creatinine of 2.77 and an elevated troponin. WBC is markedly elevated and lactate is high at 5.5. Pt was given NSS 250 mL, blood cx are pending and IV zosyn. Pt was d/w Dr Cannon of the hospitalist service who will evaluate for further management. Impression & Plan CHF (congestive heart failure), PNA (pneumonia), Acute renal failure (ARF), Sepsis Critical Care Time Critical Care Time: Yes Total Critical Care Time: 35 I have personally spent 35 minutes of critical care time in the direct management of this patient. This includes bedside care, interpretation of estella gnostic studies, and testing, discussion with consultants, patient, and family members, and other required patient management activities. This 35 minutes is in excess of all separately billable procedures. Discharge Plan Visit Data *Final* Discharge Date/Time: 02/21/19 07:37 Chief Complaint: Respiratory Distress Stated Complaint: RESPIRATORY DIFFICULTY ED Provider: Kimberly Arzate Discharge Problem: CHF (congestive heart failure), PNA (pneumonia), Acute renal failure (ARF), Sepsis Patient Disposition: Admitted As Inpatient Discharge Instructions Interventions: ED Discharge Assessment Last Done: 02/21/19 07:37 Discharge Problem: CHF (congestive heart failure) Qualifiers: Heart failure type: unspecified Heart failure chronicity: acute on chronic Edward lified Code(s): I50.9 - Heart failure, unspecified PNA (pneumonia) Qualifiers: Pneumonia type: due to unspecified organism Laterality: left Lung location: lower lobe of lung Qualified Code(s): J18.1 - Lobar pneumonia, unspecified organism Acute renal failure (ARF) Qualifiers: Acute renal failure type: unspecified Qualified Code(s): N17.9 - Acute kidney failure, unspecified Sepsis Qualifiers: Sepsis type: sepsis due to unspecified organism Sepsis acute organ dysfunction status: with acute organ dysfunction Severe sepsis acute organ dysfunction type: acute respiratory failure Acute respiratory failure type: with hypoxia Severe sepsis shock status: without septic shock Qualified Code(s): A41.9 - Sepsis, unspecified organism The scribe's documentation has been prepared under my direction and personally reviewed by me in its entirety. I confirm that the note above accurately reflects all work, treatment, procedures, and medical decision making performed by me.
[2019-02-22] MEDS: LEVALBUTEROL 1.25MG/0.5ML NEB INH SCH ×4 (00:49→18:43)
[2019-02-22] MEDS: IPRATROPIUM BROMIDE NEB SOLN 0.02% 2.5 ML VIAL INH SCH ×4 (00:49→18:43)
[2019-02-22] MEDS: PIPERACILLIN/TAZOBACTAM 3.375 GM in DEXTROSE 5% 100 ML IV SCH ×2 (02:05→13:09)
--- NOTE | 2019-02-22 07:05 | XRay Report ---
XR chest 1V portable HISTORY: 73 years-old Female f/u COMPARISON: Chest radiograph and CT chest 02/21/2019 TECHNIQUE: Portable AP view of the chest FINDINGS: Cardiac silhouette is enlarged, unchanged. Pulmonary vascular congestion with moderately improved aer ation of the lungs with decreased pulmonary edema. No pneumothorax. Small pleural effusions with mini mal bibasilar opacities. Degenerative changes of the left shoulder and spine. Right shoulder arthropl asty. Stable left subclavian pacer. Cholecystectomy. IMPRESSION: 1. Cardiomegaly with moderately improved pulmonary edema. 2. Small pleural effusions with improved aeration of the lung bases. The above report was generated using voice recognition software. It may contain grammatical, syntax o r spelling errors. Electronically signed by: Arpan Singh M.D. 02/22/2019 7:04 AM
[2019-02-22 07:07] LABS: Basophils # (auto) 0.01 K/uL (0-0.2); Basophils % (auto) 0.1 %; Eosinophils # (auto) 0.13 K/uL (0-0.5); Hematocrit (blood only) 33.5 % (37-47); Hemoglobin 10.8 g/dL (12.0-16.0); Immature Granulocytes # (auto) 0.04 K/uL (0.00-0.02); Immature Granulocytes % (auto) 0.3 %; Lymphocytes # (auto) 1.83 K/uL (1.2-3.4); Lymphocytes % (auto) 14.3 %; Mean Corpuscular Hemoglobin 32.4 pg (25-34); Mean Corpuscular Hgb Conc 32.2 g/dL (32-36); Mean Corpuscular Volume 100.6 fL (80-100); Mean Platelet Volume 11.1 fL (7.4-10.4); Monocytes # (auto) 1.27 K/uL (0.11-0.59); Monocytes % (auto) 9.9 %; Neutrophils # (auto) 9.51 K/uL (1.4-6.5); Neutrophils % (auto) 74.4 %; Platelet Count 202 K/uL (130-400); RDW Coefficient of Variation 17.3 % (11.5-14.5); Red Blood Count 3.33 M/uL (4.2-5.4); White Blood Count 12.79 K/uL (4.8-10.8)
[2019-02-22] MEDS: BRIMONIDINE TARTRATE 0.2% 5ML OPB SCH ×2 (07:25→21:45)
[2019-02-22] MEDS: BRINZOLAMIDE (AZOPT) OPS 10 ML BTL OPB SCH ×2 (07:25→21:46)
[2019-02-22] MEDS: DOXYCYCLINE HYCLATE 100 MG CAP PO SCH ×2 (07:26→18:30)
[2019-02-22] MEDS: levETIRAcetam 500 MG TAB PO SCH ×2 (07:26→21:42)
[2019-02-22] MEDS: METOPROLOL TARTRATE 50 MG TAB PO SCH ×2 (07:26→21:42)
[2019-02-22] MEDS: PANTOprazole 40 MG TAB PO SCH (07:26)
[2019-02-22] MEDS: SOTALOL HCL 80 MG TAB PO SCH ×2 (07:26→21:44)
[2019-02-22] MEDS: predniSONE 10 MG TABLET PO SCH (07:26)
[2019-02-22] MEDS: FLUTICASONE PROPIONATE NA SPR 16 GM BTL SCH (07:27)
[2019-02-22 07:34] LABS: BUN Creatinine Ratio 15.9 (10-20); Calcium 8.6 mg/dl (8.5-10.1); Creatinine Clr Calc Pharmacy 16.2 ml/min; Est GFR (African American) 15.7; Est GFR (Non-African American) 13.6; Potassium 3.6 mmol/L (3.5-5.1)
--- NOTE | 2019-02-22 07:42 | Nephrology Consultation ---
Date of Consultation February 22, 2019 Assessment & Plan (1) Acute renal failure (ARF): baseline creatinine 0.8-1.0; presenting creatinine 2.8, up to 3.2 today. valvular HF, vol OL, then obligate diuretic driving NADIA; 2.2 L negative ON -f/u UA > dipstick proteinuria, trace glucose, multiple epis; very concentrated -cont to hold K supplements -for now no FR -diuretics prn only -strict I/O -daily bmp -cont to hold acei Present on Admission?: Yes (2) CHF (congestive heart failure): 2L negative overnight; hold lasix for now unless resp distress in which case would give another 40-80 mg IV prn variable valvular insufficiency on hx and per cardiology relatively worse on today's TTE Present on Admission?: Yes (3) HTN (hypertension): on metoprolol 50 mg bid -OP ACEI (low dose) and diuretic (lasix 40 mg daily + extra 40 mg 2 days weekly) on hold -consider CCB if sbp remains consistently > 150 Present on Admission?: Yes History of Present Illness Reason for Consultation: NADIA Requesting Physician: Dr Sifuentes Attending Physician: Doug Sifuentes MD History of Present Illness 73 y/o F on chronic prednisone whom I'm asked to see for NADIA was admitted ye sterday for multifactorial acute hypoxemic respiratory failure (bronchitis v. severe sepsis v. HFpEF). Her presenting creatinine was 2.8; baseline is 0.8-1.0 as of summer 2018. 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 Admitted here 10/2018 for AF w/ RVR. She is getting zosyn; her prednisone was continued. OP lasix was held, though she did have 80 mg IV x 1 last evening. She has been hypertensive since arrival w/ SBP running 150-180s generally and downtrending. HR has been mostly 60s since arrival. Allergies Allergy/AdvReac Type Severity Reaction Status Date / Time phenytoin Allergy Intermediate HIVES AND Verified 02/21/19 04:57 MOUTH ULCERS codeine AdvReac Mild VOMITTING Verified 02/21/19 04:57 Bactrim AdvReac Unknown "FEELS Verified 10/23/18 12:53 LIKE KNIVES ARE IN MY HEAD" hydrochlorothiazide AdvReac Unknown SEE COMMENT Verified 02/21/19 04:57 sulfamethoxazole AdvReac Unknown "FEELS Verified 02/21/19 04:57 LIKE KNIVES ARE IN MY HEAD" trimethoprim AdvReac Unknown "FEELS Verified 02/21/19 04:57 LIKE KNIVES ARE IN MY HEAD" Dust Allergy Mild SINUS Uncoded 02/21/19 04:57 INFECTIONS Home Medications Home Medications Medication Instructions Recorded Confirmed Type Eliquis 5 mg PO BID 06/15/18 02/21/19 History atorvastatin 20 mg PO QAM 06/15/18 02/21/19 History cholecalciferol (vitamin D3) 1,000 unit PO QAM 06/15/18 02/21/19 History [Vitamin D3] furosemide 40 mg PO QAM 06/15/18 02/21/19 History levetiracetam 500 mg PO BID 06/15/18 02/21/19 History lisinopril 5 mg PO QAM 06/15/18 02/21/19 History omeprazole 20 mg PO QAM 06/15/18 02/21/19 History potassium 99 mg PO TID 06/15/18 02/21/19 History trazodone 50 mg PO HS 06/15/18 02/21/19 History fexofenadine [Lulu Allergy] 180 mg PO DAILY PRN 09/18/18 02/21/19 History metoprolol tartrate 50 mg PO BID #60 tab 09/21/18 02/21/19 Rx sotalol 120 mg PO BID #180 tab 09/21/18 02/21/19 Rx fluticasone propionate [Flonase 2 spray INTRANASAL DAILY 10/23/18 02/21/19 History Allergy Relief] brinzolamide-brimonidine 1 drp OPB BID 02/21/19 02/21/19 History cephalexin 500 mg PO QID 02/21/19 02/21/19 History furosemide 40 mg PO 2XWK 02/21/19 02/21/19 History prednisone 10 mg PO DAILY 02/21/19 02/21/19 History Patient History Medical History Seizure disorder (Chronic) single episode in 2005 Hyperlipidemia (Chronic) Atrial fibrillation (Chronic) ON ELIQUIS Chronic sinusitis (Chronic) GERD (gastroesophageal reflux disease) (Chronic) Glaucoma (Chronic) Hypertension (Chronic) Neuropathy (Chronic) Osteoarthritis (Chronic) Valvular heart disease (Chronic) MILD AR/MR/TR PER 07/2018 ECHO Surgical History S/P placement of cardiac pacemaker (Chronic) 09/18/18 History of bilateral tubal ligation (Chronic) History of cataract surgery (Chronic) B/L History of cholecystectomy (Chronic) History of dilatation and curettage (Chronic) History of tonsillectomy (Chronic) History of tooth extraction (Chronic) History of total shoulder replacement (Chronic) RIGHT REVERSE TOTAL SHOULDER S/P correction of deviated nasal septum (Chronic) Family History Other Breast cancer Social History Preferred Language: Burundian Communication Ability: Effective Visual Impairment: No Limitations Hearing Ability: Normal Diabetes Nurse Required: No Beliefs That Will Affect Care: None marital status: Current Living Situation: Spouse current occupational status: retired Other Information That Helps Us Care for You: No Feels Safe at Home: Yes Safety Concerns: Feels Safe At This Time Smoking Status: Former smoker Tobacco Type: cigarettes ; packs per day: 0.5 ; Cigarettes Per Day: Smoked ~1/2 ppd x ~15 years (unsure) ; Do You Dip or Chew Tobacco: No ; Second Hand Exposure: No ; Tobacco Cessation Education Requested by Patient: No Hx Alcohol Use: No Hx Substance Use: No Childhood Exposure to Second-Hand Smoke: No Review of Systems Review of Systems: All systems reviewed & are unremarkable except as noted in HPI & below Constitutional: + fatigue and + weakness Eyes: no worsening vision Ear, Nose, Mouth, Throat: no dry mouth Respiratory: + dyspnea (improved); no cough Cardiovascular: no chest pain, no palpitations and no edema Gastrointestinal: + early satiety; no abdominal pain and no diarrhea/loose stools Neurologic: no localized weakness, no abnormal movements and no headache(s) Endocrine: + fatigue Hematologic / Lymphatic: no easy bleeding Physical Exam Constitutional: well developed, well nourished and + obese on RA Eyes: EOM intact bilaterally ENMT: Ears: no external ear abnormality Nose: no external nose abnormality Mouth: + dry oral mucous membranes Neck: no nuchal rigidity Respiratory: normal respiratory effort Auscultation: + diminished lung sounds, + crackles (1/[address] post wood fine) and + wheezes (scattered occasional exp ) Cardiovascular: Rate/Rhythm: regular rate and regular rhythm Heart Sounds: + murmur Extremities: no edema Gastrointestinal (Abdomen): Inspection/Auscultation: normal bowel sounds Percussion/Palpation: abdomen soft; abdomen nontender Musculoskeletal: Extremities: strength 5/5 throughout Skin: no rashes, warm and dry Neurologic: jett, fluent speech, no tremor Psychiatric: A+Ox3, euthymic affect Affect: + flat affect Genitourinary: lanza w/ clear urine ample Results & Data Vital Signs (Past 12 Hours) Vital Signs Temp Pulse Resp BP Pulse Ox 02/22/19 07:09 78 18 95 02/22/19 07:08 36.8 C 60 19 151/86 H 95 02/22/19 03:52 36.7 C 61 22 155/85 H 95 02/22/19 00:53 60 20 97 02/21/19 23:09 36.5 C 61 17 142/84 H 100 02/21/19 19:28 68 20 94 Laboratory Results 02/22/19 06:26 02/22/19 06:26 Diagnostic Findings cxr 1. Cardiomegaly with moderately improved pulmonary edema. 2. Small pleural effusions with improved aeration of the lung bases. CT chest non con 1. Moderate congestive heart failure with moderate pulmonary edema and moderate bilateral pleural effusions. 2. Extensive lower lobe passive atelectasis in the setting of effusions. 3. Prominent mediastinal lymph nodes may be related to venolymphatic congestive change. CT abd/pelvis non con 1. No bowel obstruction or bowel wall thickening. 2. Colonic diverticulosis without acute diverticulitis. 3. Scattered air-fluid levels within nondilated loops of ileum and colon may reflect a nonspecific enteritis with diarrheal illness. Correlate clinically. 4. Cholecystectomy. 5. Pulmonary edema, pleural effusions and bibasilar dependent consolidation suggestive of compressive atelectasis. 6. Mild avascular necrosis without articular collapse of the right femoral head. TTE 02/21 EF 60-65%; severe MR, severe TR, ePA pressure 45 (1) Acute renal failure (ARF) Acute renal failure type: unspecified Qualified Code(s): N17.9 - Acute kidney failure, unspecified (2) CHF (congestive heart failure) Heart failure chronicity: acute on chronic Heart failure type: unspecified Qualified Code(s): I50.9 - Heart failure, unspecified (3) HTN (hypertension) Hypertension type: essential hypertension Qualified Code(s): I10 - Essential (primary) hypertension
--- NOTE | 2019-02-22 11:07 | Cardiology Consultation ---
Date of Consultation February 22, 2019 Assessment & Plan (1) Acute hypoxemic respiratory failure: 73-year-old female who presented with multifactorial respiratory failure, hypoxia with possible complicated bronchitis as well as diastolic heart failure with preserved ejection fraction. Acute decline in renal function is new for patient Echocardiogram demonstrates moderate severe mitral and tricuspid insufficiency which is more pronounced than on prior examinations. She remains in sinus rhythm on chronic sotalol and is anticoagulated. Patient initially responding to therapies and comfortable today. Eliquis reduced given renal insufficiency Sotalol will be continued but will reduce dose ultimately may need to discontinue if renal function does not promptly improve. Atrial fibrillation has been difficult to control in the past both with multiple recurrences at elevated heart rates Troponins are elevated possibly secondary to acute renal insufficiency versus demand ischemia. Overall LV systolic function stable Plan: Continue current therapies allow volume status to equilibrate. Follow renal function As noted above will need to watch sotalol closely given renal insufficiency Daily EKG and EKG ordered Degree of mitral insufficiency may require further assessment as clinical course proceeds (2) Tachy-christopher syndrome: (3) Acute renal failure (ARF): (4) Paroxysmal atrial fibrillation: (5) Mitral insufficiency: History of Present Illness Reason for Consultation: Congestive heart failure with preserved ejection fraction, acute renal insufficient Requesting Physician: Dr. Sifuentes Attending Physician: Doug Sifuentes MD History of Present Illness Patient is a 73-year-old female with ongoing issues 1.Paroxysmal atrial fibrillation initial diagnosis June 2018 treated with sotalol for rhythm control with synchronized electrical cardioversion August 01, 2018 and August 29, 2018 2. Tachy-christopher syndrome status post dual-chamber pacemaker insertion September 18, 2018Medtronic dual-chamber pacemakerModel: [place] [id number] 3.Hypertension. 4.History of past thyrotoxicosis. 5. Mitral and tricuspid insufficiency chronic variable severity 6. Past diastolic heart failure/pleural effusions with preserved ejection fraction Patient admitted with mixed respiratory failure with hypoxia. 1 week history of cough productive of sputum. Worsening shortness of breath possible febrile illness. No chest pains no tachypalpitations no syncope. No changes in medications per Patient treated with antibiotics and diuretics. Troponins elevated on presentation but no dynamic EKG changes. Echocardiogram demonstrates worsening mitral and tricuspid insufficiency with preserved ejection fraction. Renal function acutely decreased Allergies Allergy/AdvReac Type Severity Reaction Status Date / Time phenytoin Allergy Intermediate HIVES AND Verified 02/21/19 04:57 MOUTH ULCERS codeine AdvReac Mild VOMITTING Verified 02/21/19 04:57 Bactrim AdvReac Unknown "FEELS Verified 10/23/18 12:53 LIKE KNIVES ARE IN MY HEAD" hydrochlorothiazide AdvReac Unknown SEE COMMENT Verified 02/21/19 04:57 sulfamethoxazole AdvReac Unknown "FEELS Verified 02/21/19 04:57 LIKE KNIVES ARE IN MY HEAD" trimethoprim AdvReac Unknown "FEELS Verified 02/21/19 04:57 LIKE KNIVES ARE IN MY HEAD" Dust Allergy Mild SINUS Uncoded 02/21/19 04:57 INFECTIONS Home Medications Home Medications Medication Instructions Recorded Confirmed Type Eliquis 5 mg PO BID 06/15/18 02/21/19 History atorvastatin 20 mg PO QAM 06/15/18 02/21/19 History cholecalciferol (vitamin D3) 1,000 unit PO QAM 06/15/18 02/21/19 History [Vitamin D3] furosemide 40 mg PO QAM 06/15/18 02/21/19 History levetiracetam 500 mg PO BID 06/15/18 02/21/19 History lisinopril 5 mg PO QAM 06/15/18 02/21/19 History omeprazole 20 mg PO QAM 06/15/18 02/21/19 History potassium 99 mg PO TID 06/15/18 02/21/19 History trazodone 50 mg PO HS 06/15/18 02/21/19 History fexofenadine [Lulu Allergy] 180 mg PO DAILY PRN 09/18/18 02/21/19 History metoprolol tartrate 50 mg PO BID #60 tab 09/21/18 02/21/19 Rx sotalol 120 mg PO BID #180 tab 09/21/18 02/21/19 Rx fluticasone propionate [Flonase 2 spray INTRANASAL DAILY 10/23/18 02/21/19 History Allergy Relief] brinzolamide-brimonidine 1 drp OPB BID 02/21/19 02/21/19 History cephalexin 500 mg PO QID 02/21/19 02/21/19 History furosemide 40 mg PO 2XWK 02/21/19 02/21/19 History prednisone 10 mg PO DAILY 02/21/19 02/21/19 History Patient History Medical History Seizure disorder (Chronic) single episode in 2005 Hyperlipidemia (Chronic) Atrial fibrillation (Chronic) ON ELIQUIS Chronic sinusitis (Chronic) GERD (gastroesophageal reflux disease) (Chronic) Glaucoma (Chronic) Hypertension (Chronic) Neuropathy (Chronic) Osteoarthritis (Chronic) Valvular heart disease (Chronic) MILD AR/MR/TR PER 07/2018 ECHO Surgical History S/P placement of cardiac pacemaker (Chronic) 09/18/18 History of bilateral tubal ligation (Chronic) History of cataract surgery (Chronic) B/L History of cholecystectomy (Chronic) History of dilatation and curettage (Chronic) History of tonsillectomy (Chronic) History of tooth extraction (Chronic) History of total shoulder replacement (Chronic) RIGHT REVERSE TOTAL SHOULDER S/P correction of deviated nasal septum (Chronic) Family History Other Breast cancer Social History Preferred Language: Sinhala Communication Ability: Effective Visual Impairment: No Limitations 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 Beliefs That Will Affect Care: None marital status: Current Living Situation: Spouse current occupational status: retired Other Information That Helps Us Care for You: No Feels Safe at Home: Yes Safety Concerns: Feels Safe At This Time Smoking Status: Former smoker Tobacco Type: cigarettes ; packs per day: 0.5 ; Cigarettes Per Day: Smoked ~1/2 ppd x ~15 years (unsure) ; Do You Dip or Chew Tobacco: No ; Second Hand Exposure: No ; Tobacco Cessation Education Requested by Patient: No Hx Alcohol Use: No Hx Substance Use: No Childhood Exposure to Second-Hand Smoke: No Physical Exam Constitutional: WD/WN, vitals as above Eyes: PERRL, conjunctivae normal, anicteric sclerae ENMT: external ear and nose normal, oropharynx normal Neck: trachea midline, no thyromegaly + thick neck Respiratory: normal respiratory effort, lungs clear to auscultation Auscultation: + rales (Few basilar) Cardiovascular: Rate/Rhythm: regular rate and regular rhythm Heart Sounds: normal S1, normal S2 and + murmur (Grade 2/6 systolic apex and left base); no gallop Palpation: normal PMI Vessels: normal carotid upstroke and radial pulses present; no JVD and no carotid bruit Extremities: + edema (1+) Gastrointestinal (Abdomen): normal bowel sounds, soft, nontender, no hepatosplenomegaly Musculoskeletal: no cyanosis or clubbing, extremities motor strength 5/5 Skin: no rashes, warm and dry Neurologic: PERRL, EOMI, accommodation nl, no face palsy, no dysarthria Psychiatric: A+Ox3, euthymic affect Results & Data Vital Signs (Past 12 Hours) Vital Signs Temp Pulse Resp BP Pulse Ox 02/22/19 07:09 78 18 95 02/22/19 07:08 36.8 C 60 19 151/86 H 95 02/22/19 03:52 36.7 C 61 22 155/85 H 95 02/22/19 00:53 60 20 97 02/21/19 23:09 36.5 C 61 17 142/84 H 100 Laboratory Results Laboratory Results - last 24 hr 02/21/19 02/21/19 02/22/19 11:34 15:26 06:26 WBC 12.79 H RBC 3.33 L Hgb 10.8 L Hct 33.5 L MCV 100.6 H MCH 32.4 MCHC 32.2 RDW Std Deviation 64.0 H RDW Coeff of Allan 17.3 H Plt Count 202 MPV 11.1 H Immature Gran % (Auto) 0.3 Neut % (Auto) 74.4 Lymph % (Auto) 14.3 Aiken % (Auto) 9.9 Eos % (Auto) 1.0 Baso % (Auto) 0.1 Immature Gran # (Auto) 0.04 H Neut # (Auto) 9.51 H Lymph # (Auto) 1.83 Aiken # (Auto) 1.27 H Eos # (Auto) 0.13 Baso # (Auto) 0.01 Sodium Potassium Chloride Carbon Dioxide Anion Gap BUN Creatinine Est Cr Clr Drug Dosing Est GFR ( Amer) Est GFR (Non-Af Amer) BUN/Creatinine Ratio Glucose Lactate 1.9 Calcium Troponin I 0.253 H* 02/22/19 06:26 WBC RBC Hgb Hct MCV MCH MCHC RDW Std Deviation RDW Coeff of Allan Plt Count MPV Immature Gran % (Auto) Neut % (Auto) Lymph % (Auto) Aiken % (Auto) Eos % (Auto) Baso % (Auto) Immature Gran # (Auto) Neut # (Auto) Lymph # (Auto) Aiken # (Auto) Eos # (Auto) Baso # (Auto) Sodium 140 Potassium 3.6 D Chloride 109 H Carbon Dioxide 21 Anion Gap 10.0 BUN 52 H Creatinine 3.24 H D Est Cr Clr Drug Dosing 16.2 Est GFR ( Amer) 15.7 Est GFR (Non-Af Amer) 13.6 BUN/Creatinine Ratio 15.9 Glucose 91 Lactate Calcium 8.6 Troponin I Diagnostic Findings 21-FEB-2019 04:29:57 [facility]-EDSTAT ROUTINE RETRIEVAL Poor data quality, interpretation may be adversely affected Atrial-paced rhythm ST & T wave abnormality, consider lateral ischemia Abnormal ECG When compared with ECG of 24-OCT-2018 06:28, Criteria for Septal infarct are no longer Present QT has shortened Confirmed by Dani Manjarrez ([id number]) on 02/22/2019 4:38:24 AM (1) Acute renal failure (ARF) Acute renal failure type: unspecified Qualified Code(s): N17.9 - Acute kidney failure, unspecified
[2019-02-22] MEDS ORDERED: POTASSIUM CHLORIDE 20 MEQ TABCR PO STA (12:29)
--- NOTE | 2019-02-22 19:32 | Hospitalist Progress Note ---
Date of Service February 22, 2019 Assessment & Plan (1) Acute hypoxemic respiratory failure: Diastolic Heart faiure with preserve EF Possible related to CHF exacerbation VS pneumonia vs pleural effusion CT chest showed moderate congestive heart failure with moderate pulmonary edema and moderate bilateral pleural effusions. patchy ground glass infiltrates diffusely. ECHO done today showed severe mitral and tricuspid regurgitation Repeat CXR showed cardiomegaly with moderately improved pulmonary edema. Small pleural effusions with improved aeration of the lung bases. Continue IV abx with doxy and Zosyn Will hold Lasix since creatinine worsening Cardiology consulted Continue monitor in tele Sepsis Meet criteria on admission with elevated WBC, elevated RR and lactic CT chest showed patchy ground glass infiltrate lactic acid normalize Continue IV abx with doxy and Zosyn Blood cx pmo growth Monitor CBC NADIA Creatinine on admission 2.7 Received IV lasix Creatinine worsening above 3 Hold lasix for now Nephro on board Monitor BPM Elevated troponin Possible related to demand ischemia due to CHF exacerbation and NADIA with creatinine 2.7 Troponin on admission 0.12 then peak to 0.28, now trending down to 0.25 EKG showed no acute ischemic changes Echo showed no wall motion abnormality Denies any chest pain Afib Had 2 episodes VT on monitor today Rate controlled on metoprolol and sotalol Consider to reduce Sotalol dose Will decrease Eliquis due to NADIA Continue daily EKG Will keep mg above 2 and K above 4 K replaced today Continue monitor closely CODE STATUS FULL CODE Subjective Pt was seen and examined lying in bed with no distress Pt said that she feeling much better today She said that breathing is better She has been having few episode of VT on tele monitor Denies any chest pain, palpitation and SOB Physical Exam Physical Exam: General- No acute distress Head- atraumatic Eyes- PERRL, EOMI, ENT- oropharynx clear Neck- supple, no JVD Lungs- +coarse BS Heart- regular rhythm; no murmur Abdomen- normal bowel sounds, soft, nontender Extremities- no calf tenderness, +edema Neuro- alert, oriented x 3; PERRL, EOMI; no facial palsy; no dysarthria Skin- warm & dry Results & Data Vital Signs (Past 12 Hours) Vital Signs Temp Pulse Resp BP Pulse Ox 02/22/19 19:20 36.7 C 61 18 163/76 H 94 02/22/19 18:45 71 18 96 11/08/19 15:07 36.7 C 63 18 148/75 H 93 02/22/19 13:12 75 18 97 02/22/19 12:17 36.7 C 60 20 174/64 H 97 02/22/19 11:46 36.7 C 73 19 135/86 92
[2019-02-22] MEDS: APIXABAN 5 MG TABLET PO SCH (21:41)
[2019-02-23] MEDS: LEVALBUTEROL 1.25MG/0.5ML NEB INH SCH ×4 (00:48→18:51)
[2019-02-23] MEDS: IPRATROPIUM BROMIDE NEB SOLN 0.02% 2.5 ML VIAL INH SCH ×4 (00:48→18:51)
[2019-02-23] MEDS ORDERED: AMLODIPINE BESYLATE 5 MG TAB PO STA (00:59)
--- NOTE | 2019-02-23 01:01 | Communication Note ---
Date of Service: February 23, 2019 Made aware by RN of uncontrolled blood pressure. SBP 140-180s range the last 12 hours. Cardiac rate 60s. Patient sleeping as per RN. AP Uncontrolled blood pressure Add Norvasc to patient's current beta-taisha regimen. Will relay to AM provider.
[2019-02-23] MEDS: PIPERACILLIN/TAZOBACTAM 3.375 GM in DEXTROSE 5% 100 ML IV SCH ×2 (03:20→13:07)
[2019-02-23] MEDS: levETIRAcetam 500 MG TAB PO SCH ×2 (07:54→20:19)
[2019-02-23] MEDS: predniSONE 10 MG TABLET PO SCH (07:54)
[2019-02-23] MEDS: SOTALOL HCL 80 MG TAB PO SCH (07:54)
[2019-02-23] MEDS: METOPROLOL TARTRATE 50 MG TAB PO SCH (07:54)
[2019-02-23] MEDS: DOXYCYCLINE HYCLATE 100 MG CAP PO SCH ×2 (07:54→20:19)
[2019-02-23] MEDS: PANTOprazole 40 MG TAB PO SCH (07:54)
[2019-02-23] MEDS: APIXABAN 5 MG TABLET PO SCH (07:55)
[2019-02-23] MEDS: BRINZOLAMIDE (AZOPT) OPS 10 ML BTL OPB SCH ×2 (07:55→20:07)
[2019-02-23] MEDS: BRIMONIDINE TARTRATE 0.2% 5ML OPB SCH ×2 (07:56→20:07)
[2019-02-23] MEDS: FLUTICASONE PROPIONATE NA SPR 16 GM BTL SCH (07:56)
[2019-02-23 08:38] LABS: Hematocrit (blood only) 37.4 % (37-47); Hemoglobin 12.2 g/dL (12.0-16.0); Mean Corpuscular Hemoglobin 32.4 pg (25-34); Mean Corpuscular Hgb Conc 32.6 g/dL (32-36); Mean Corpuscular Volume 99.5 fL (80-100); Mean Platelet Volume 10.9 fL (7.4-10.4); Platelet Count 212 K/uL (130-400); RDW Coefficient of Variation 17.2 % (11.5-14.5); RDW Standard Deviation 63.2 fL (36.4-46.3); Red Blood Count 3.76 M/uL (4.2-5.4); White Blood Count 14.47 K/uL (4.8-10.8)
[2019-02-23 09:03] LABS: BUN Creatinine Ratio 16.4 (10-20); Calcium 9.1 mg/dl (8.5-10.1); Creatinine Clr Calc Pharmacy 16.8 ml/min; Est GFR (African American) 16.3; Est GFR (Non-African American) 14.1; Potassium 3.4 mmol/L (3.5-5.1)
--- NOTE | 2019-02-23 12:37 | Cardiology Progress Note ---
Date of Service February 23, 2019 Assessment & Plan (1) Acute hypoxemic respiratory failure: 73-year-old female who presented with multifactorial respiratory failure, hypoxia with possible complicated bronchitis as well as diastolic heart failure with preserved ejection fraction. Acute decline in renal function is new for patient Echocardiogram demonstrates moderate severe mitral and tricuspid insufficiency which is more pronounced than on prior examinations. She remains in sinus rhythm on chronic sotalol and is anticoagulated. Patient initially responding to therapies and comfortable today. Eliquis reduced given renal insufficiency Atrial fibrillation has been difficult to control in the past both with multiple recurrences at elevated heart rates Troponins are elevated possibly secondary to acute renal insufficiency versus demand ischemia. Overall LV systolic function stable Plan: Continue current therapies allow volume status to equilibrate. Follow renal function As noted above will need to watch sotalol closely given renal insufficiency Daily EKG and EKG ordered Degree of mitral insufficiency may require further assessment as clinical course proceeds (2) Tachy-christopher syndrome: (3) Acute renal failure (ARF): (4) Paroxysmal atrial fibrillation: Patient has lapsed back into atrial fibrillation, not unexpected with acute illness and respiratory distress Renal function has not improved Plan discontinue sotalol Add Toprol for rate control Clinical course patient will likely require AV junction ablation for management given poor tolerance and efficacy of antiarrhythmic therapy (5) Mitral insufficiency: We will continue to follow this course progresses Subjective Patient seen and examined, chart, medications, telemetry reviewed. Patient feels and appears much more comfortable this morning. Still with wheezy cough and dyspnea with exertion Telemetry reveals patient having lapsed into atrial fibrillation with intermitte ntly elevated ventricular response rate Renal function with only mild improvement Physical Exam Constitutional: WD/WN, vitals as above Eyes: PERRL, conjunctivae normal, anicteric sclerae ENMT: external ear and nose normal, oropharynx normal Neck: trachea midline, no thyromegaly + thick neck Respiratory: Auscultation: + wheezes (Scattered wheezes all lung wood increased with cough) Cardiovascular: Rate/Rhythm: + irregularly irregular Heart Sounds: normal S1, normal S2 and + murmur (Grade 2/6 systolic apex and left base); no gallop Palpation: normal PMI Vessels: normal carotid upstroke and radial pulses pr esent; no JVD and no carotid bruit Extremities: + edema (1+) Gastrointestinal (Abdomen): normal bowel sounds, soft, nontender, no hepatosplenomegaly Musculoskeletal: no cyanosis or clubbing, extremities motor strength 5/5 Skin: no rashes, warm and dry Neurologic: PERRL, EOMI, accommodation nl, no face palsy, no dysarthria Psychiatric: A+Ox3, euthymic affect Results & Data Vital Signs (Past 12 Hours) Vital Signs Temp Pulse Resp BP Pulse Ox 02/23/19 11:24 36.6 C 74 18 148/81 H 92 02/23/19 07:14 102 H 18 92 02/23/19 06:58 36.5 C 90 20 144/93 H 94 02/23/19 04:10 36.4 C L 124 H 23 150/88 H 92 (1) Acute renal failure (ARF) Acute renal failure type: unspecified Qualified Code(s): N17.9 - Acute kidney failure, unspecified
[2019-02-23] MEDS ORDERED: POTASSIUM CHLORIDE 20 MEQ TABCR PO ONE (13:29)
--- NOTE | 2019-02-23 13:29 | Nephrology Progress Note ---
Date of Service February 23, 2019 Assessment & Plan (1) Acute renal failure (ARF): baseline creatinine 0.8-1.0; presenting creatinine 2.8, plateau'd at 3.1 today. valvular HF, vol OL, and AF w/ rates challenging to control and then obligate diuretic driving NADIA; even w/o diuretics on board, 800 ml negative ON -f/u UA > dipstick proteinuria, trace glucose, multiple epis; very concentrated -will give K po 40 mEq x 1 -for now no FR -diuretics prn only such as w/ worsening breathing -strict I/O -daily bmp -cont to hold acei -cardiology changes to eliquis and stopping sotalol noted (2) CHF (congestive heart failure): nearly 3L neg since arrival; hold lasix for now unless resp distress in which case would give another 40-80 mg IV prn variable valvular insufficiency on hx and per cardiology relatively worse on this admission's TTE -continue efforts to control heart rate/rhthym (3) HTN (hypertension): on metoprolol 50 mg bid -OP ACEI (low dose) and diuretic (lasix 40 mg daily + extra 40 mg 2 days weekly) on hold -consider CCB if sbp remains consistently > 150 Subjective no complaints of sob; + ongoing cough at times; denies decreased po Review of Systems Review of Systems: All systems reviewed & are unremarkable except as noted in HPI & below Physical Exam Constitutional: well developed, well nourished and + obese Eyes: EOM intact bilaterally ENMT: Ears: no external ear abnormality Nose: no external nose abnormality Mouth: + dry oral mucous membranes Neck: no nuchal rigidity Respiratory: normal respiratory effort Auscultation: + diminished lung sounds, + crackles (1/[address] post wood fine) and + wheezes (scattered occasional exp ) Cardiovascular: Rate/Rhythm: regular rate and regular rhythm Heart Sounds: + murmur Extremities: no edema Gastrointestinal (Abdomen): Inspection/Auscultation: normal bowel sounds Percussion/Palpation: abdomen soft; abdomen nontender Musculoskeletal: Extremities: strength 5/5 throughout Skin: no rashes, warm and dry Psychiatric: A+Ox3, euthymic affect Affect: + flat affect Genitourinary: lanza w/ clear urine Results & Data Vital Signs (Past 12 Hours) Vital Signs Temp Pulse Resp BP Pulse Ox 02/23/19 11:24 36.6 C 74 18 148/81 H 92 02/23/19 07:14 102 H 18 92 02/23/19 06:58 36.5 C 90 20 144/93 H 94 02/23/19 04:10 36.4 C L 124 H 23 150/88 H 92 Laboratory Results 02/23/19 08:26 02/23/19 08:26 (1) Acute renal failure (ARF) Acute renal failure type: unspecified Qualified Code(s): N17.9 - Acute kidney failure, unspecified (2) CHF (congestive heart failure) Heart failure chronicity: acute on chronic Heart failure type: unspecified Qualified Code(s): I50.9 - Heart failure, unspecified (3) HTN (hypertension) Hypertension type: essential hypertension Qualified Code(s): I10 - Essential (primary) hypertension
--- NOTE | 2019-02-23 19:09 | Hospitalist Progress Note ---
Date of Service February 23, 2019 Assessment & Plan (1) Acute hypoxemic respiratory failure: Diastolic Heart faiure with preserve EF Possible related to CHF exacerbation VS pneumonia vs pleural effusion CT chest showed moderate congestive heart failure with moderate pulmonary edema and moderate bilateral pleural effusions. patchy ground glass infiltrates diffusely. ECHO done today showed severe mitral and tricuspid regurgitation Repeat CXR showed cardiomegaly with moderately improved pulmonary edema. Small pleural effusions with improved aeration of the lung bases. Continue IV abx with doxy and Zosyn Continue to hold Lasix since creatinine worsening Cardiology on board Clinically improved Continue monitor in tele Sepsis Meet criteria on admission with elevated WBC, elevated RR and lactic CT chest showed patchy ground glass infiltrate lactic acid normalize Continue IV abx with doxy and Zosyn Blood cx no growth Monitor CBC NADIA Creatinine on admission 2.7 Received IV lasix Creatinine worsening above 3.14 Hold lasix for now Nephro on board Monitor BPM Elevated troponin Possible related to demand ischemia due to CHF exacerbation and NADIA with creatinine 2.7 Troponin on admission 0.12 then peak to 0.28, now trending down to 0.25 EKG showed no acute ischemic changes Echo showed no wall motion abnormality Denies any chest pain Afib Had 2 episodes VT on monitor today Rate controlled on metoprolol and sotalol On Sotalol, plan to transition to Metoprolol as per cardio Will decrease Eliquis due to NADIA Continue daily EKG Will keep mg above 2 and K above 4 Continue monitor closely CODE STATUS FULL CODE Subjective Pt was seen and examined Lying in bed with no distress Pt said that her breathing is much better Denies any chest pain, palpitation and SOB Physical Exam Physical Exam: General- No acute distress Head- atraumatic Eyes- PERRL, EOMI, ENT- oropharynx clear Neck- supple, no JVD Lungs- +coarse BS Heart- regular rhythm; no murmur Abdomen- normal bowel sounds, soft, nontender Extremities- no calf tenderness, +edema Neuro- alert, oriented x 3; PERRL, EOMI; no facial palsy; no dysarthria Skin- warm & dry Results & Data Vital Signs (Past 12 Hours) Vital Signs Temp Pulse Resp BP Pulse Ox 02/23/19 18:51 61 16 96 02/23/19 15:10 36.6 C 76 18 164/87 H 96 02/23/19 13:38 72 16 93 02/23/19 11:24 36.6 C 74 18 148/81 H 92 02/23/19 07:14 102 H 18 92
[2019-02-23] MEDS: APIXABAN 2.5 MG TAB PO SCH (20:17)
[2019-02-23] MEDS ORDERED: METOPROLOL SUCC 50MG EXT REL TAB PO SCH (21:00)
[2019-02-24] MEDS: IPRATROPIUM BROMIDE NEB SOLN 0.02% 2.5 ML VIAL INH SCH ×4 (01:26→18:55)
[2019-02-24] MEDS: LEVALBUTEROL 1.25MG/0.5ML NEB INH SCH ×4 (01:27→18:54)
[2019-02-24] MEDS: PIPERACILLIN/TAZOBACTAM 3.375 GM in DEXTROSE 5% 100 ML IV SCH ×2 (01:53→14:00)
[2019-02-24] MEDS: METOPROLOL SUCC 50MG EXT REL TAB PO SCH ×2 (04:14→20:44)
[2019-02-24] MEDS: guaiFENesin SUGAR FREE 200 MG/10 ML UDC PO PRN (04:14)
[2019-02-24 07:24] LABS: Creatinine Clr Calc Pharmacy 16.8 ml/min; Est GFR (African American) 16.4; Est GFR (Non-African American) 14.2
[2019-02-24] MEDS: levETIRAcetam 500 MG TAB PO SCH ×2 (07:28→20:43)
[2019-02-24] MEDS: FLUTICASONE PROPIONATE NA SPR 16 GM BTL SCH (07:29)
[2019-02-24] MEDS: predniSONE 10 MG TABLET PO SCH (07:29)
[2019-02-24] MEDS: DOXYCYCLINE HYCLATE 100 MG CAP PO SCH ×2 (07:30→18:26)
[2019-02-24] MEDS: BRINZOLAMIDE (AZOPT) OPS 10 ML BTL OPB SCH ×2 (07:30→20:45)
[2019-02-24] MEDS: PANTOprazole 40 MG TAB PO SCH (07:30)
[2019-02-24] MEDS: APIXABAN 2.5 MG TAB PO SCH ×2 (07:31→20:44)
[2019-02-24] MEDS: BRIMONIDINE TARTRATE 0.2% 5ML OPB SCH ×2 (07:31→20:45)
[2019-02-24] MEDS: PROMETHAZINE HCL 12.5 MG in SODIUM CHLORIDE 0.9% 50 ML IV PRN (08:19)
[2019-02-24] MEDS ORDERED: AMLODIPINE BESYLATE 5 MG TAB PO ONE (08:46)
[2019-02-24] MEDS ORDERED: APIXABAN 2.5 MG TAB PO SCH (09:00)
[2019-02-24] MEDS ORDERED: AMLODIPINE BESYLATE 5 MG TAB PO SCH (09:00)
[2019-02-24] MEDS ORDERED: HydrALAZINE HCL 20 MG/ML VIAL IV ONE (09:19)
--- NOTE | 2019-02-24 09:28 | Nephrology Progress Note ---
Date of Service February 24, 2019 Assessment & Plan (1) Acute renal failure (ARF): baseline creatinine 0.8-1.0; presenting creatinine 2.8, plateau'd again at 3.1 today. valvular HF, vol OL, and AF w/ rates challenging to control and then obligate diuretic driving NADIA; net even yesterday for I/O (first this admission -f/u UA > dipstick proteinuria, trace glucose, multiple epis; very concentrated -for now no FR -gently reintroduce diuretics as below -strict I/O -daily bmp -cont to hold acei -cardiology changes to eliquis and stopping sotalol noted (2) CHF (congestive heart failure): nearly 3L neg since arrival; hold lasix for now unless resp distress in which case would give another 40-80 mg IV prn variable valvular insufficiency on hx and per cardiology relatively worse on this admission's TTE -continue efforts to control heart rate/rhthym <>better last 24 hrs -trial of low dose lasix bid 10 mg iv (3) HTN (hypertension): on metoprolol 50 mg bid -OP ACEI (low dose) on hold -started this am on amlodipine 5 mg -added prn IV hydralazine -lasix as above Subjective poor sleep, occasional cough; denies sob, denies bowel issues; has lanza; heart rhythm has been more steady lately. Review of Systems Review of Systems: All systems reviewed & are unremarkable except as noted in HPI & below Cardiovascular: + edema (controlled) Gastrointestinal: + nausea and + vomiting (x 1 earlier today) Physical Exam Constitutional: well developed, well nourished and + obese on RA Eyes: EOM intact bilaterally ENMT: Ears: no external ear abnormality Nose: no external nose abnormality Mouth: + dry oral mucous membranes Neck: no nuchal rigidity Respiratory: normal respiratory effort and + cough (thick) Auscultation: + diminished lung sounds, + crackles (1/[address] post wood ) and + wheezes (scattered occasional exp ) Cardiovascular: Rate/Rhythm: regular rate and regular rhythm Heart Sounds: + murmur Extremities: no edema Gastrointestinal (Abdomen): Inspection/Auscultation: normal bowel sounds Percussion/Palpation: abdomen soft; abdomen nontender Musculoskeletal: Extremities: strength 5/5 throughout Skin: no rashes, warm and dry Psychiatric: A+Ox3, euthymic affect Affect: + flat affect Genitourinary: lanza w/ ample urine Results & Data Vital Signs (Past 12 Hours) Vital Signs Temp Pulse Resp BP BP Pulse Ox 02/24/19 08:02 60 187/93 H 02/24/19 07:27 190/93 H 02/24/19 07:17 36.3 C L 60 20 186/89 H 196/80 H 91 02/24/19 06:48 61 18 90 02/24/19 03:27 36.6 C 106 H 18 184/94 H 95 02/23/19 23:37 36.5 C 110 H 16 160/87 H 95 Laboratory Results 02/23/19 08:26 02/24/19 06:26 (1) Acute renal failure (ARF) Acute renal failure type: unspecified Qualified Code(s): N17.9 - Acute kidney failure, unspecified (2) CHF (congestive heart failure) Heart failure chronicity: acute on chronic Heart failure type: unspecified Qualified Code(s): I50.9 - Heart failure, unspecified (3) HTN (hypertension) Hypertension type: essential hypertension Qualified Code(s): I10 - Essential (primary) hypertension
[2019-02-24] MEDS ORDERED: FUROSEMIDE 10 MG in SYRINGE 0 ML IV ONE (13:14)
--- NOTE | 2019-02-24 13:53 | Cardiology Progress Note ---
Date of Service February 24, 2019 Assessment & Plan (1) Acute hypoxemic respiratory failure: 73-year-old female who presented with multifactorial respiratory failure, hypoxia with possible complicated bronchitis as well as diastolic heart failure with preserved ejection fraction. Acute decline in renal function is new for patient Echocardiogram demonstrates moderate severe mitral and tricuspid insufficiency which is more pronounced than on prior examinations. She remains in sinus rhythm on chronic sotalol and is anticoagulated. Patient initially responding to therapies and comfortable today. Eliquis reduced given renal insufficiency Atrial fibrillation has been difficult to control in the past both with multiple recurrences at elevated heart rates Troponins are elevated possibly secondary to acute renal insufficiency versus demand ischemia. Overall LV systolic function stable Plan: Continue current therapies allow volume status to equilibrate. Follow renal function As noted above will need to watch sotalol closely given renal insufficiency Daily EKG and EKG ordered Degree of mitral insufficiency may require further assessment as clinical course proceeds (2) Tachy-christopher syndrome: (3) Acute renal failure (ARF): (4) Paroxysmal atrial fibrillation: Patient was reverted back to sinus/paced rhythm We will keep off sotalol continue anticoagulation with reduced dose Eliquis Clinical course patient will likely require AV junction ablation for management given poor tolerance and efficacy of antiarrhythmic therapy Blood pressures have increased as ANGEL inhibitor held corticosteroids administered Patient started on amlodipine this morning we will add topical nitrates until blood pressure controlled (5) Mitral insufficiency: We will continue to follow this course progresses Subjective Patient seen and examined, chart, medications, telemetry reviewed Patient still with wheezy rhonchorous cough. Blood pressure labile with little change in renal function Patient reverted back to sinus rhythm/intermittent AV pacing overnight Physical Exam Constitutional: WD/WN, vitals as above Eyes: PERRL, conjunctivae normal, anicteric sclerae ENMT: external ear and nose normal, oropharynx normal Neck: trachea midline, no thyromegaly + thick neck Respiratory: normal respiratory effort, lungs clear to auscultation Auscultation: + wheezes (Scattered wheezes all lung wood increased with cough) Cardiovascular: Rate/Rhythm: + irregularly irregular Heart Sounds: normal S1, normal S2 and + murmur (Grade 2/6 systolic apex and left base); no gallop Palpation: normal PMI Vessels: normal carotid upstroke and radial pulses present; no JVD and no carotid bruit Extremities: + edema (1+) Gastrointestinal (Abdomen): normal bowel sounds, soft, nontender, no hepatosplenomegaly Musculoskeletal: no cyanosis or clubbing, extremities motor strength 5/5 Skin: no rashes, warm and dry Neurologic: PERRL, EOMI, accommodation nl, no face palsy, no dysarthria Psychiatric: A+Ox3, euthymic affect Results & Data Vital Signs (Past 12 Hours) Vital Signs Temp Pulse Resp BP BP Pulse Ox 02/24/19 13:17 60 20 93 02/24/19 11:11 36.8 C 64 20 172/78 H 95 02/24/19 09:45 153/80 H 02/24/19 08:02 60 187/93 H 02/24/19 07:27 190/93 H 02/24/19 07:17 36.3 C L 60 20 186/89 H 196/80 H 91 02/24/19 06:48 61 18 90 02/24/19 03:27 36.6 C 106 H 18 184/94 H 95 Laboratory Results Laboratory Results - last 24 hr 02/24/19 02/24/19 06:26 06:26 Potassium 3.9 Creatinine 3.13 H Est Cr Clr Drug Dosing 16.8 Est GFR ( Amer) 16.4 Est GFR (Non-Af Amer) 14.2 (1) Acute renal failure (ARF) Acute renal failure type: unspecified Qualified Code(s): N17.9 - Acute kidney failure, unspecified
[2019-02-24] MEDS: NITROGLYCERIN 2% OINTMENT 30GM TUBE EXT SCH ×2 (14:44→21:20)
[2019-02-24] MEDS: HydrALAZINE HCL 20 MG/ML VIAL IV PRN (15:19)
[2019-02-24] MEDS ORDERED: FUROSEMIDE 10 MG in SYRINGE 0 ML IV SCH (17:00)
--- NOTE | 2019-02-24 18:14 | Hospitalist Progress Note ---
Date of Service February 24, 2019 Assessment & Plan (1) Acute hypoxemic respiratory failure: Diastolic Heart faiure with preserve EF Possible related to CHF exacerbation VS pneumonia vs pleural effusion CT chest showed moderate congestive heart failure with moderate pulmonary edema and moderate bilateral pleural effusions. patchy ground glass infiltrates diffusely. ECHO done today showed severe mitral and tricuspid regurgitation Repeat CXR showed cardiomegaly with moderately improved pulmonary edema. Small pleural effusions with improved aeration of the lung bases. Continue IV abx with doxy and Zosyn Starting on low dose IV lasix 10mg as per nephrology Cardiology on board Clinically improved Continue monitor in tele Sepsis Meet criteria on admission with elevated WBC, elevated RR and lactic CT chest showed patchy ground glass infiltrate lactic acid normalize On IV abx with doxy and Zosyn Blood cx no growth Monitor CBC NADIA Creatinine on admission 2.7 Creatinine 3.13 today Lasix 10 mg started by Nephro Nephro on board Monitor BPM Elevated troponin Possible related to demand ischemia due to CHF exacerbation and NADIA with creatinine 2.7 Troponin on admission 0.12 then peak to 0.28, now trending down to 0.25 EKG showed no acute ischemic changes Echo showed no wall motion abnormality Denies any chest pain Afib Converted back to NSR Rate controlled on metoprolol On Sotalol discontinued and Metoprolol increased to 100mg as per cardio Continue Eliquis 2.5 mg BID due to NADIA Continue daily EKG Will keep mg above 2 and K above 4 Continue monitor closely CODE STATUS FULL CODE Subjective Pt was seen and examined. Lying in bed with no distress Pt said that she had a BM this morning and after that she developed abdominal pain She said that she threw up this morning Lower extremities swelling improve Denies any chest pain, palpitation and SOB Physical Exam Physical Exam: General- No acute distress Head- atraumatic Eyes- PERRL, EOMI, ENT- oropharynx clear Neck- supple, no JVD Lungs- +coarse BS Heart- regular rhythm; no murmur Abdomen- normal bowel sounds, soft, nontender Extremities- no calf tenderness, +edema improves Neuro- alert, oriented x 3; PERRL, EOMI; no facial palsy; no dysarthria Skin- warm & dry Results & Data Vital Signs (Past 12 Hours) Vital Signs Temp Pulse Resp BP BP Pulse Ox 02/24/19 16:27 166/76 H 02/24/19 15:11 36.7 C 60 18 179/77 H 94 02/24/19 14:42 36.5 C 60 20 176/75 H 92 02/24/19 13:17 60 20 93 02/24/19 11:11 36.8 C 64 20 172/78 H 95 02/24/19 09:45 153/80 H 02/24/19 08:02 60 187/93 H 02/24/19 07:27 190/93 H 02/24/19 07:17 36.3 C L 60 20 186/89 H 196/80 H 91 02/24/19 06:48 61 18 90
[2019-02-25] MEDS: IPRATROPIUM BROMIDE NEB SOLN 0.02% 2.5 ML VIAL INH SCH ×4 (01:04→18:50)
[2019-02-25] MEDS: LEVALBUTEROL 1.25MG/0.5ML NEB INH SCH ×4 (01:04→18:50)
[2019-02-25] MEDS: PIPERACILLIN/TAZOBACTAM 3.375 GM in DEXTROSE 5% 100 ML IV SCH ×2 (01:32→14:26)
[2019-02-25] MEDS: NITROGLYCERIN 2% OINTMENT 30GM TUBE EXT SCH ×4 (01:32→19:43)
[2019-02-25] MEDS: HydrALAZINE HCL 20 MG/ML VIAL IV PRN (03:43)
[2019-02-25 06:32] LABS: Hematocrit (blood only) 39.3 % (37-47); Hemoglobin 12.6 g/dL (12.0-16.0); Mean Corpuscular Hgb Conc 32.1 g/dL (32-36); Mean Corpuscular Volume 99.7 fL (80-100); Mean Platelet Volume 12.2 fL (7.4-10.4); Platelet Count 176 K/uL (130-400); RDW Coefficient of Variation 17.2 % (11.5-14.5); RDW Standard Deviation 63.2 fL (36.4-46.3); Red Blood Count 3.94 M/uL (4.2-5.4); White Blood Count 12.28 K/uL (4.8-10.8)
[2019-02-25 07:12] LABS: BUN Creatinine Ratio 19.5 (10-20); Calcium 9.3 mg/dl (8.5-10.1); Creatinine Clr Calc Pharmacy 16.7 ml/min; Est GFR (African American) 16.3; Potassium 3.4 mmol/L (3.5-5.1)
[2019-02-25] MEDS: AMLODIPINE BESYLATE 5 MG TAB PO SCH (07:53)
[2019-02-25] MEDS: METOPROLOL SUCC 50MG EXT REL TAB PO SCH ×2 (07:54→19:39)
[2019-02-25] MEDS: APIXABAN 2.5 MG TAB PO SCH ×2 (07:54→19:37)
[2019-02-25] MEDS: levETIRAcetam 500 MG TAB PO SCH ×2 (07:54→19:38)
[2019-02-25] MEDS: DOXYCYCLINE HYCLATE 100 MG CAP PO SCH ×2 (07:54→19:38)
[2019-02-25] MEDS: BRIMONIDINE TARTRATE 0.2% 5ML OPB SCH ×2 (07:55→19:36)
[2019-02-25] MEDS: FLUTICASONE PROPIONATE NA SPR 16 GM BTL SCH (07:55)
[2019-02-25] MEDS: predniSONE 10 MG TABLET PO SCH (07:55)
[2019-02-25] MEDS: BRINZOLAMIDE (AZOPT) OPS 10 ML BTL OPB SCH ×2 (07:56→19:37)
[2019-02-25] MEDS: guaiFENesin SUGAR FREE 200 MG/10 ML UDC PO PRN (07:58)
[2019-02-25] MEDS: FUROSEMIDE 10 MG in SYRINGE 0 ML IV SCH (09:38)
[2019-02-25] MEDS ORDERED: POTASSIUM CHLORIDE 20 MEQ TABCR PO ONE (09:45)
--- NOTE | 2019-02-25 09:57 | Nephrology Progress Note ---
Date of Service February 25, 2019 Assessment & Plan (1) Acute renal failure (ARF): baseline creatinine 0.8-1.0; presenting creatinine 2.8, plateau'd again at 3.1 today. valvular HF, vol OL, and AF w/ rates challenging to control and then obligate diuretic driving NADIA; net even yesterday for I/O (first this admission -f/u UA > dipstick proteinuria, trace glucose, multiple epis; very concentrated -for now no FR -gently reintroduce diuretics as below -strict I/O -daily bmp -cont to hold acei -cardiology changes to eliquis and stopping sotalol noted (2) CHF (congestive heart failure): nearly 3L neg since arrival; hold lasix for now unless resp distress in which case would give another 40-80 mg IV prn variable valvular insufficiency on hx and per cardiology relatively worse on this admission's TTE -continue efforts to control heart rate/rhthym <>better last 24 hrs -trial of low dose lasix bid 10 mg iv>> one dose made her negative 1L so changed lasix to daily (3) HTN (hypertension): on metoprolol 50 mg bid -OP ACEI (low dose) on hold -cont amlodipine 5 mg -added prn IV hydralazine -lasix as above Subjective wheezing audibly per nurse > 1 hr not bothersome to pt no chest tightness; no chest pain, palpitations; no edema, ate small breakfast; 1L net negative after 10 mg IV lasix x 1; no edema, no GI pain, no n/v Review of Systems Review of Systems: All systems reviewed & are unremarkable except as noted in HPI & below Physical Exam Constitutional: well developed, well nourished and + obese cooperative, on RA Eyes: EOM intact bilaterally ENMT: Ears: no external ear abnormality Nose: no external nose abnormality Mouth: + dry oral mucous membranes Neck: no nuchal rigidity Respiratory: normal respiratory effort Auscultation: + diminished lung sounds and + wheezes (pronounced exp wheezes through all wood) Cardiovascular: Rate/Rhythm: regular rate and regular rhythm Heart Sounds: + murmur Extremities: no edema Gastrointestinal (Abdomen): Inspection/Auscultation: normal bowel sounds Percussion/Palpation: abdomen soft; abdomen nontender Musculoskeletal: Extremities: strength 5/5 throughout Skin: no rashes, warm and dry Neurologic: jett, fluent speech, no tremor Psychiatric: A+Ox3, euthymic affect Affect: + flat affect Genitourinary: lanza present Results & Data Vital Signs (Past 12 Hours) Vital Signs Temp Pulse Pulse Resp BP BP Pulse Ox 02/25/19 07:07 36.3 C L 65 20 134/78 91 02/25/19 06:54 94 H 16 91 02/25/19 05:02 94 H 135/70 02/25/19 03:34 36.4 C L 60 18 187/81 H 97 02/24/19 23:16 36.5 C 61 23 157/55 H 96 02/24/19 22:45 60 Laboratory Results 02/25/19 06:01 02/25/19 06:01 (1) Acute renal failure (ARF) Acute renal failure type: unspecified Qualified Code(s): N17.9 - Acute kidney failure, unspecified (2) CHF (congestive heart failure) Heart failure chronicity: acute on chronic Heart failure type: unspecified Qualified Code(s): I50.9 - Heart failure, unspecified (3) HTN (hypertension) Hypertension type: essential hypertension Qualified Code(s): I10 - Essential (primary) hypertension
[2019-02-25] MEDS: PANTOprazole 40 MG TAB PO SCH (10:29)
--- NOTE | 2019-02-25 10:54 | Cardiology Progress Note ---
Date of Service February 25, 2019 Assessment & Plan (1) Acute hypoxemic respiratory failure: 73-year-old female who presented with multifactorial respiratory failure, hypoxia with possible complicated bronchitis as well as diastolic heart failure with preserved ejection fraction. Acute decline in renal function is new for patient Echocardiogram demonstrates moderate severe mitral and tricuspid insufficiency which is more pronounced than on prior examinations. She remains in sinus rhythm on chronic sotalol and is anticoagulated. Patient initially responding to therapies and comfortable today. Eliquis reduced given renal insufficiency Atrial fibrillation has been difficult to control in the past both with multiple recurrences at elevated heart rates Mixed etiology suspected with combination of diastolic/valvular heart failure and respiratory distress. Slowly improving clinically Blood pressures improved today after diuresis Patient has lapsed back into atrial fibrillation. Sotalol discontinued due to renal failure we will continue oral metoprolol succinate with relatively good rate control currently May need to discuss AV junction ablation as course of management (2) Tachy-christopher syndrome: (3) Acute renal failure (ARF): (4) Paroxysmal atrial fibrillation: Patient was reverted back to sinus/paced rhythm We will keep off sotalol continue anticoagulation with reduced dose Eliquis Clinical course patient will likely require AV junction ablation for management given poor tolerance and efficacy of antiarrhythmic therapy Blood pressures have increased as ANGEL inhibitor held corticosteroids administered Patient started on amlodipine this morning we will add topical nitrates until blood pressure controlled (5) Mitral insufficiency: We will continue to follow this course progresses Degree of mitral deficiency has been variable depending on patient's hemodynamics and fluid status and presence or absence of atrial fibrillation Subjective Patient seen and examined, chart, medications telemetry reviewed. Patient breathing slightly improved today. Did diurese rather briskly with low- dose IV furosemide last night. Still with scattered wheezes. Patient lapsing in and out of atrial fibrillation predominantly atrial fibrillation this morning. Physical Exam Constitutional: WD/WN, vitals as above Eyes: PERRL, conjunctivae normal, anicteric sclerae ENMT: external ear and nose normal, oropharynx normal Neck: trachea midline, no thyromegaly + thick neck Respiratory: normal respiratory effort, lungs clear to auscultation Auscultation: + wheezes (Scattered wheezes all lung wood increased with cough) Cardiovascular: Rate/Rhythm: + irregularly irregular Heart Sounds: normal S1, normal S2 and + murmur (Grade 2/6 systolic apex and left base); no gallop Palpation: normal PMI Vessels: normal carotid upstroke and radial pulses present; no JVD and no carotid bruit Extremities: + edema (1+) Gastrointestinal (Abdomen): normal bowel sounds, soft, nontender, no hepatosplenomegaly Musculoskeletal: no cyanosis or clubbing, extremities motor strength 5/5 Skin: no rashes, warm and dry Neurologic: PERRL, EOMI, accommodation nl, no face palsy, no dysarthria Psychiatric: A+Ox3, euthymic affect Results & Data Vital Signs (Past 12 Hours) Vital Signs Temp Pulse Resp BP BP Pulse Ox 02/25/19 07:07 36.3 C L 65 20 134/78 91 02/25/19 06:54 94 H 16 91 02/25/19 05:02 94 H 135/70 02/25/19 03:34 36.4 C L 60 18 187/81 H 97 02/24/19 23:16 36.5 C 61 23 157/55 H 96 (1) Acute renal failure (ARF) Acute renal failure type: unspecified Qualified Code(s): N17.9 - Acute kidney failure, unspecified
--- NOTE | 2019-02-25 13:29 | Hospitalist Progress Note ---
Date of Service February 25, 2019 Assessment & Plan (1) Acute hypoxemic respiratory failure: Diastolic Heart faiure with preserve EF Possible related to CHF exacerbation VS pneumonia vs pleural effusion CT chest showed moderate congestive heart failure with moderate pulmonary edema and moderate bilateral pleural effusions. patchy ground glass infiltrates diffusely. ECHO done today showed severe mitral and tricuspid regurgitation Repeat CXR showed cardiomegaly with moderately improved pulmonary edema. Small pleural effusions with improved aeration of the lung bases. Continue IV abx with doxy and Zosyn Diuresis well on lasix 10mg IV BID --> negative 1L Lasix changed to 10mg IV daily Cardiology on board Clinically improved Continue monitor in tele Sepsis Meet criteria on admission with elevated WBC, elevated RR and lactic CT chest showed patchy ground glass infiltrate lactic acid normalize On IV abx with doxy and Zosyn Blood cx no growth Monitor CBC NADIA Creatinine on admission 2.7 Creatinine remained at 3.1 today Lasix decreased to 10 mg daily by Nephrology Nephro on board Monitor BPM Elevated troponin Possible related to demand ischemia due to CHF exacerbation and NADIA with creatinine 2.7 Troponin on admission 0.12 then peak to 0.28, now trending down to 0.25 EKG showed no acute ischemic changes Echo showed no wall motion abnormality Denies any chest pain Afib Back to Afib today Rate controlled on metoprolol Sotalol discontinued due to NADIA On Metoprolol 100mg BID Continue Eliquis 2.5 mg BID due to NADIA Case discussed with cardiology plan for possible AV junction ablation for management given poor tolerance and efficacy of antiarrhythmic therapy Will keep mg above 2 and K above 4 Continue monitor closely CODE STATUS FULL CODE Subjective Pt was seen and examined Lying in bed with no distress Pt has been diuresis well with gentle IV lasix She is back to Afib on tele monitor Denies any chest pain, palpitation and SOB Physical Exam Physical Exam: General- No acute distress Head- atraumatic Eyes- PERRL, EOMI, ENT- oropharynx clear Neck- supple, no JVD Lungs- +coarse BS Heart- regular rhythm; no murmur Abdomen- normal bowel sounds, soft, nontender Extremities- no calf tenderness, +edema improves Neuro- alert, oriented x 3; PERRL, EOMI; no facial palsy; no dysarthria Skin- warm & dry Results & Data Vital Signs (Past 12 Hours) Vital Signs Temp Pulse Resp BP BP Pulse Ox 02/25/19 11:01 36.4 C L 72 19 130/79 93 02/25/19 07:07 36.3 C L 65 20 134/78 91 02/25/19 06:54 94 H 16 91 02/25/19 05:02 94 H 135/70 02/25/19 03:34 36.4 C L 60 18 187/81 H 97
[2019-02-26] MEDS: IPRATROPIUM BROMIDE NEB SOLN 0.02% 2.5 ML VIAL INH SCH ×4 (00:56→19:11)
[2019-02-26] MEDS: LEVALBUTEROL 1.25MG/0.5ML NEB INH SCH ×4 (00:56→19:12)
[2019-02-26] MEDS: PIPERACILLIN/TAZOBACTAM 3.375 GM in DEXTROSE 5% 100 ML IV SCH ×2 (01:19→13:53)
[2019-02-26] MEDS: NITROGLYCERIN 2% OINTMENT 30GM TUBE EXT SCH ×4 (01:19→19:56)
[2019-02-26 07:03] LABS: BUN Creatinine Ratio 18.4 (10-20); Calcium 9.1 mg/dl (8.5-10.1); Creatinine Clr Calc Pharmacy 14.5 ml/min; Est GFR (African American) 13.9; Potassium 3.6 mmol/L (3.5-5.1)
[2019-02-26] MEDS: PANTOprazole 40 MG TAB PO SCH (07:49)
[2019-02-26] MEDS: predniSONE 10 MG TABLET PO SCH (07:50)
[2019-02-26] MEDS: AMLODIPINE BESYLATE 5 MG TAB PO SCH (07:50)
[2019-02-26] MEDS: METOPROLOL SUCC 50MG EXT REL TAB PO SCH ×2 (07:50→19:52)
[2019-02-26] MEDS: levETIRAcetam 500 MG TAB PO SCH ×2 (07:50→19:52)
[2019-02-26] MEDS: APIXABAN 2.5 MG TAB PO SCH ×2 (07:51→19:52)
[2019-02-26] MEDS: DOXYCYCLINE HYCLATE 100 MG CAP PO SCH ×2 (07:51→19:51)
[2019-02-26] MEDS: BRIMONIDINE TARTRATE 0.2% 5ML OPB SCH ×2 (07:51→19:50)
[2019-02-26] MEDS: BRINZOLAMIDE (AZOPT) OPS 10 ML BTL OPB SCH ×2 (07:52→19:50)
[2019-02-26] MEDS: FUROSEMIDE 10 MG in SYRINGE 0 ML IV SCH (07:53)
[2019-02-26] MEDS: FLUTICASONE PROPIONATE NA SPR 16 GM BTL SCH (07:53)
--- NOTE | 2019-02-26 14:30 | Cardiology Progress Note ---
Date of Service February 26, 2019 Assessment & Plan (1) Acute hypoxemic respiratory failure: 73-year-old female who presented with multifactorial respiratory failure, hypoxia with possible complicated bronchitis as well as diastolic heart failure with preserved ejection fraction. Acute decline in renal function is new for patient Echocardiogram demonstrates moderate severe mitral and tricuspid insufficiency which is more pronounced than on prior examinations. She remains in sinus rhythm on chronic sotalol and is anticoagulated. Patient initially responding to therapies and comfortable today. Eliquis reduced given renal insufficiency Atrial fibrillation has been difficult to control in the past both with multiple recurrences at elevated heart rates Mixed etiology suspected with combination of diastolic/valvular heart failure and respiratory distress. Slowly improving clinically Blood pressures improved today after diuresis Patient has lapsed back into atrial fibrillation. Sotalol discontinued due to renal failure we will continue oral metoprolol succinate with relatively good rate control currently May need to discuss AV junction ablation as course of management (2) Tachy-christopher syndrome: (3) Acute renal failure (ARF): Appreciate nephrology input. Will hold furosemide in a.m. until evaluated. (4) Paroxysmal atrial fibrillation: Patient was reverted back to sinus/paced rhythm We will keep off sotalol continue anticoagulation with reduced dose Eliquis Clinical course patient will likely require AV junction ablation for management given poor tolerance and efficacy of antiarrhythmic therapy Blood pressures have increased as ANGEL inhibitor held corticosteroids administered Patient started on amlodipine , topical nitrates We will keep patient n.p.o. with anticipation of possible AV junction ablation in a.m. depending on renal function and clinical status (5) Mitral insufficiency: We will continue to follow this course progresses Degree of mitral deficiency has been variable depending on patient's hemodynamics and fluid status and presence or absence of atrial fibrillation Subjective Patient seen and examined, chart, medications, telemetry reviewed Patient notes no acute complaints overnight overall is been feeling well no respiratory distress. Wheezing is improved. No worsening edema. Telemetry demonstrates persistent atrial fibrillation with occasionally very rapid response patient asymptomatic. No syncope or near syncope. No chest pain or discomfort. Physical Exam Constitutional: WD/WN, vitals as above Eyes: PERRL, conjunctivae normal, anicteric sclerae ENMT: external ear and nose normal, oropharynx normal Neck: trachea midline, no thyromegaly + thick neck Respiratory: normal respiratory effort, lungs clear to auscultation Auscultation: + wheezes (Scattered wheezes all lung wood increased with cough) Cardiovascular: Rate/Rhythm: + irregularly irregular Heart Sounds: normal S1, normal S2 and + murmur (Grade 2/6 systolic apex and left base); no gallop Palpation: normal PMI Vessels: normal carotid upstroke and radial pulses present; no JVD and no carotid bruit Extremities: + edema (1+) Gastrointestinal (Abdomen): normal bowel sounds, soft, nontender, no hepatosplenomegaly Musculoskeletal: no cyanosis or clubbing, extremities motor strength 5/5 Skin: no rashes, warm and dry Neurologic: PERRL, EOMI, accommodation nl, no face palsy, no dysarthria Psychiatric: A+Ox3, euthymic affect Results & Data Vital Signs (Past 12 Hours) Vital Signs Temp Pulse Resp BP BP Pulse Ox 02/26/19 13:30 90 18 95 02/26/19 10:47 36.4 C L 93 H 18 145/90 H 91 02/26/19 08:00 36.4 C L 108 H 20 150/93 H 93 02/26/19 06:57 71 18 97 02/26/19 04:15 36.3 C L 105 H 20 166/83 H 94 Laboratory Results Laboratory Results - last 24 hr 02/26/19 06:11 Sodium 140 Potassium 3.6 Chloride 108 H Carbon Dioxide 19 L Anion Gap 13.0 H BUN 66 H Creatinine 3.60 H D Est Cr Clr Drug Dosing 14.5 Est GFR ( Amer) 13.9 Est GFR (Non-Af Amer) 12.0 BUN/Creatinine Ratio 18.4 Glucose 95 Calcium 9.1 (1) Acute renal failure (ARF) Acute renal failure type: unspecified Qualified Code(s): N17.9 - Acute kidney failure, unspecified
--- NOTE | 2019-02-26 17:51 | Hospitalist Progress Note ---
Date of Service February 26, 2019 Assessment & Plan (1) Acute hypoxemic respiratory failure: Diastolic Heart faiure with preserve EF Possible related to CHF exacerbation VS pneumonia vs pleural effusion CT chest showed moderate congestive heart failure with moderate pulmonary edema and moderate bilateral pleural effusions. patchy ground glass infiltrates diffusely. ECHO done today showed severe mitral and tricuspid regurgitation Repeat CXR showed cardiomegaly with moderately improved pulmonary edema. Small pleural effusions with improved aeration of the lung bases. Continue IV abx with doxy and Zosyn Diuresis well on lasix 10mg IV BID --> negative about 4L so far IV Lasix 10mg on hold due to worsening ARF Cardiology on board Continue monitor in tele Sepsis Meet criteria on admission with elevated WBC, elevated RR and lactic CT chest showed patchy ground glass infiltrate lactic acid normalize On IV abx with doxy and Zosyn will complete 7 days course of abx Blood cx no growth ctable NADIA Creatinine on admission 2.7 Creatinine worsening to 3.6 today Nephro on board IV Lasix on hold Monitor BMP Elevated troponin Possible related to demand ischemia due to CHF exacerbation and NADIA with creatinine 2.7 Troponin on admission 0.12 then peak to 0.28, now trending down to 0.25 EKG showed no acute ischemic changes Echo showed no wall motion abnormality Denies any chest pain Afib Back to Afib today Rate controlled on metoprolol Sotalol discontinued due to NADIA On Metoprolol 100mg BID Continue Eliquis 2.5 mg BID due to NADIA Case discussed with cardiology plan for possible AV junction ablation for management given poor tolerance and efficacy of antiarrhythmic therapy Will keep mg above 2 and K above 4 Will make NPO after midnight for possible AV junction ablation in a.m. Continue monitor closely CODE STATUS FULL CODE Disposition Continue monitor in tele Subjective Pt was seen and examined Lying in bed with no distress Pt said that she feels ok Denies any chest pain, palpitation and SOB Physical Exam Physical Exam: General- No acute distress Head- atraumatic Eyes- PERRL, EOMI, ENT- oropharynx clear Neck- supple, no JVD Lungs- +coarse BS Heart- regular rhythm; +systolic murmur Abdomen- normal bowel sounds, soft, nontender Extremities- no calf tenderness, +edema improves Neuro- alert, oriented x 3; PERRL, EOMI; no facial palsy; no dysarthria Skin- warm & dry Results & Data Vital Signs (Past 12 Hours) Vital Signs Temp Pulse Resp BP BP Pulse Ox 02/26/19 15:30 36.5 C 95 H 18 145/96 H 93 02/26/19 14:58 96 02/26/19 13:30 90 18 95 02/26/19 10:47 36.4 C L 93 H 18 145/90 H 91 02/26/19 08:00 36.4 C L 108 H 20 150/93 H 93 02/26/19 06:57 71 18 97
--- NOTE | 2019-02-26 20:58 | Nephrology Progress Note ---
Date of Service February 26, 2019 Assessment & Plan (1) Acute renal failure (ARF): baseline creatinine 0.8-1.0; presenting creatinine 2.8, increased further to 3.6 today. valvular HF, vol OL, and AF w/ rates challenging to control and then obligate diuretic driving NADIA; net even yesterday for I/O (first this admission -f/u UA > dipstick proteinuria, trace glucose, multiple epis; very concentrated -for now no FR -gently reintroduce diuretics as below -strict I/O -daily bmp -cont to hold acei -cardiology changes to eliquis and stopping sotalol noted -keep lanza for now at least until after procedure (2) CHF (congestive heart failure): variable valvular insufficiency on hx and per cardiology relatively worse on this admission's TTE -continue efforts to control heart rate/rhthym <>for possible av node ablation tomorrow -have now stopped trial of low dose lasix bid 10 mg iv>> she had it last 11/12 am (3) HTN (hypertension): on metoprolol 50 mg bid -OP ACEI (low dose) on hold -cont amlodipine 5 mg -added prn IV hydralazine -lasix as above Subjective seen on rounds this evening. ongoing wheezing, not bothersome to pt. no other c/o; tolerating po, no voiding issues; improvign edema, no palpitations Review of Systems Review of Systems: All systems reviewed & are unremarkable except as noted in HPI & below Physical Exam Constitutional: well developed, well nourished and + obese lying flat on RA Eyes: EOM intact bilaterally ENMT: Ears: no external ear abnormality Nose: no external nose abnormality Mouth: + dry oral mucous membranes Neck: no nuchal rigidity Respiratory: normal respiratory effort Auscultation: + diminished lung sounds and + wheezes (pronounced exp wheezes through all wood) Cardiovascular: Rate/Rhythm: regular rate and regular rhythm Heart Sounds: + murmur Extremities: no edema Gastrointestinal (Abdomen): Inspection/Auscultation: normal bowel sounds Percussion/Palpation: abdomen soft; abdomen nontender Musculoskeletal: Extremities: strength 5/5 throughout Skin: no rashes, warm and dry Neurologic: jett, fluent speech no tremor Psychiatric: A+Ox3, euthymic affect Affect: + flat affect Genitourinary: lanza present Results & Data Vital Signs (Past 12 Hours) Vital Signs Temp Pulse Resp BP BP Pulse Ox 02/26/19 19:35 36.6 C 76 18 149/75 H 93 02/26/19 19:14 58 L 16 92 02/26/19 15:30 36.5 C 95 H 18 145/96 H 93 02/26/19 14:58 96 02/26/19 13:30 90 18 95 02/26/19 10:47 36.4 C L 93 H 18 145/90 H 91 Laboratory Results 02/25/19 06:01 02/26/19 06:11 (1) Acute renal failure (ARF) Acute renal failure type: unspecified Qualified Code(s): N17.9 - Acute kidney failure, unspecified (2) CHF (congestive heart failure) Heart failure chronicity: acute on chronic Heart failure type: unspecified Qualified Code(s): I50.9 - Heart failure, unspecified (3) HTN (hypertension) Hypertension type: essential hypertension Qualified Code(s): I10 - Essential (primary) hypertension
[2019-02-27] MEDS: LEVALBUTEROL 1.25MG/0.5ML NEB INH SCH ×4 (00:59→19:00)
[2019-02-27] MEDS: IPRATROPIUM BROMIDE NEB SOLN 0.02% 2.5 ML VIAL INH SCH ×4 (00:59→19:00)
[2019-02-27] MEDS: PIPERACILLIN/TAZOBACTAM 3.375 GM in DEXTROSE 5% 100 ML IV SCH (02:12)
[2019-02-27] MEDS: NITROGLYCERIN 2% OINTMENT 30GM TUBE EXT SCH ×4 (02:18→21:42)
[2019-02-27 06:23] LABS: BUN Creatinine Ratio 17.8 (10-20); Calcium 9.1 mg/dl (8.5-10.1); Creatinine Clr Calc Pharmacy 13.8 ml/min; Est GFR (African American) 13.2; Est GFR (Non-African American) 11.4; Potassium 3.5 mmol/L (3.5-5.1)
[2019-02-27] MEDS: predniSONE 10 MG TABLET PO SCH (07:47)
[2019-02-27] MEDS: METOPROLOL SUCC 50MG EXT REL TAB PO SCH (07:47)
[2019-02-27] MEDS: DOXYCYCLINE HYCLATE 100 MG CAP PO SCH (07:48)
[2019-02-27] MEDS: PANTOprazole 40 MG TAB PO SCH (07:48)
[2019-02-27] MEDS: AMLODIPINE BESYLATE 5 MG TAB PO SCH ×2 (07:48→21:35)
[2019-02-27] MEDS: APIXABAN 2.5 MG TAB PO SCH ×2 (07:48→21:35)
[2019-02-27] MEDS: levETIRAcetam 500 MG TAB PO SCH ×2 (07:48→21:35)
[2019-02-27] MEDS: BRINZOLAMIDE (AZOPT) OPS 10 ML BTL OPB SCH ×2 (07:49→21:34)
[2019-02-27] MEDS: guaiFENesin SUGAR FREE 200 MG/10 ML UDC PO PRN (07:49)
[2019-02-27] MEDS: BRIMONIDINE TARTRATE 0.2% 5ML OPB SCH ×2 (07:50→21:34)
[2019-02-27] MEDS: FLUTICASONE PROPIONATE NA SPR 16 GM BTL SCH (09:09)
--- NOTE | 2019-02-27 09:34 | Nephrology Progress Note ---
Date of Service February 27, 2019 Assessment & Plan (1) Acute renal failure (ARF): baseline creatinine 0.8-1.0; presenting creatinine 2.8, increased further but only slightly to 3.8 today. valvular HF, vol OL, and AF w/ rates challenging to control and then obligate diuretic driving NADIA; net negative yesterday for I/O. has dipstick proteinuria, trace glucose, multiple epis; very concentrated urine -for now no FR -hold diuretics; when time to reintroduce should be very small doses -strict I/O -daily bmp -cont to hold acei -keep lanza for now at least until after procedure (2) CHF (congestive heart failure): variable valvular insufficiency on hx and per cardiology relatively worse on this admission's TTE -continue efforts to control heart rate/rhthym <>for possible av node ablation today -have now stopped trial of low dose lasix daily 10 mg iv>> she had it last 11/12 am (3) HTN (hypertension): on metoprolol 50 mg bid -OP ACEI (low dose) on hold -cont amlodipine 5 mg -added prn IV hydralazine -lasix as above Subjective had been for possible AV node ablation midday >> pt had breakfast but now npo. no edema, no sob, ongoing wheeze; Review of Systems Review of Systems: All systems reviewed & are unremarkable except as noted in HPI & below Physical Exam Constitutional: well developed, well nourished and + obese on ra Eyes: EOM intact bilaterally ENMT: Ears: no external ear abnormality Nose: no external nose abnormality Mouth: + dry oral mucous membranes Neck: no nuchal rigidity Respiratory: normal respiratory effort Auscultation: + diminished lung sounds and + wheezes (pronounced exp wheezes through ariana R field) Cardiovascular: Rate/Rhythm: regular rhythm and + tachycardic Heart Sounds: + murmur Extremities: no edema Gastrointestinal (Abdomen): Inspection/Auscultation: normal bowel sounds Percussion/Palpation: abdomen soft; abdomen nontender Musculoskeletal: Extremities: strength 5/5 throughout Skin: no rashes, warm and dry Neurologic: jett, fluent speech, no tremor Psychiatric: A+Ox3, euthymic affect Speech: normal rate/rhythm/volume of speech Insight: good insight Judgement: good judgement Results & Data Vital Signs (Past 12 Hours) Vital Signs Temp Pulse Resp BP Pulse Ox 02/27/19 07:43 36.4 C L 98 H 18 162/109 H 94 02/27/19 06:58 58 L 16 93 02/27/19 04:06 36.5 C 92 H 16 155/92 H 96 02/26/19 23:13 36.4 C L 88 18 154/93 H 98 Laboratory Results 02/25/19 06:01 02/27/19 05:31 (1) Acute renal failure (ARF) Acute renal failure type: unspecified Qualified Code(s): N17.9 - Acute kidney failure, unspecified (2) CHF (congestive heart failure) Heart failure chronicity: acute on chronic Heart failure type: unspecified Qualified Code(s): I50.9 - Heart failure, unspecified (3) HTN (hypertension) Hypertension type: essential hypertension Qualified Code(s): I10 - Essential (primary) hypertension
--- NOTE | 2019-02-27 10:54 | Hospitalist Progress Note ---
Date of Service February 27, 2019 Assessment & Plan (1) Acute hypoxemic respiratory failure: Multifactorial : due to acute decompensation of Diastolic Heart faliure with preserve EF ( ECHO 02/17/19 : EF 60-65% ) with significant valvular heart disease ( severe Mitral and tricuspid regurgitation ) with Pulmonary HTN ( elevated Pulm pressure > 45 mmhg ( normal 8-20 mm Hg ) possible Pneumonia ( community acquired ) CT chest showed moderate congestive heart failure with moderate pulmonary edema and moderate bilateral pleural effusions. patchy ground glass infiltrates diffusely. Cardiology on board pt been diuresed Diuresis well on lasix 10mg IV BID --> negative about 4L so far IV Lasix 10mg on hold due to worsening ARF with negative balance plan for GIULIANA cardioversion today Continue monitor in tele COMMUNITY ACQUIRED PNEUMONIA: Repeat CXR showed cardiomegaly with moderately improved pulmonary edema. Small pleural effusions with improved aeration of the lung bases. Continue IV abx with doxy and Zosyn-complete total 7 days of tx Sepsis Met criteria on admission with elevated WBC, elevated RR and lactic due to above CT chest showed patchy ground glass infiltrate lactic acid normalize On IV abx with doxy and Zosyn will complete 7 days course of abx Blood cx no growth respiratory status stable NADIA ON CKD STAGE 3 : baseline creatinine 0.8-1.0; presenting creatinine 2.8, increased to 3.8 appreciate input from nephrology -recommends to hold diuretics; will be resumed at a lower dose when renal function improves -strict I/O -daily bmp -cont to hold acei -keep lanza for now at least until after procedure CHF (congestive heart failure): Diastolic heart failure with preserved LV function , severe valvular heart disease presented with Acute decompensation of CHF with volume overload in setting of Arrythmia/Afib -continue efforts to control heart rate/rhythm <>for possible av node ablation today - HTN (hypertension): on metoprolol 100 mg bid -OP ACEI (low dose) on hold -cont amlodipine 5 mg on Lasix -added prn IV hydralazine -lasix on hold for now Elevated troponin Possible related to demand ischemia ( Type 2 NSTEMI ) due to CHF exacerbation( diastolic dysfunction ) and NADIA with creatinine 2.7 Troponin on admission 0.12 then peak to 0.28, now trending down to 0.25 EKG showed no acute ischemic changes Echo showed no wall motion abnormality no evidence of ACS ( acute coronary event /coronary thrombus or plaque rupture ) cont all cardiac meds cardiology on board Afib recurrent Sotalol discontinued due to NADIA On Metoprolol 100mg BID Eliquis dose reduced to 2.5 mg BID due to NADIA Case discussed with cardiology plan for possible AV junction ablation for management given poor tolerance and efficacy of antiarrhythmic therapy Will keep mg above 2 and K above 4 plan for possible AV junction ablation today Continue monitor closely CODE STATUS FULL CODE DVT PROPHYLAXIS : on Eliquis Disposition Continue monitor in tele plan to discharge home when medically stable Subjective pt is sitting on chair states she feel fine this morning had and un eventlful night has cough with mucoid sputum getting better no fever or chills denies of feeling of palpitation , sob , VALADEZ or chest heaviness scheduled for GIULIANA cardioversion today Review of Systems Review of Systems: All systems reviewed & are unremarkable except as noted in HPI & below Physical Exam Constitutional: WD/WN, vitals as above no acute distress Eyes: PERRL, conjunctivae normal, anicteric sclerae ENMT: external ear and nose normal, oropharynx normal Neck: trachea midline, no thyromegaly Respiratory: normal respiratory effort Auscultation: + wheezes (expiratory wheezed noted most pronounced at rt lower base ) Cardiovascular: Vessels: no JVD and no carotid bruit Extremities: normal capillary refill; no calf tenderness and no pedal edema irregular Gastrointestinal (Abdomen): normal bowel sounds, soft, nontender, no hepatosplenomegaly Musculoskeletal: no cyanosis or clubbing, extremities motor strength 5/5 Skin: no rashes, warm and dry Neurologic: PERRL, EOMI, accommodation nl, no face palsy, no dysarthria Psychiatric: A+Ox3, euthymic affect Results & Data Vital Signs (Past 12 Hours) Vital Signs Temp Pulse Resp BP Pulse Ox 02/27/19 07:43 36.4 C L 98 H 18 162/109 H 94 02/27/19 06:58 58 L 16 93 02/27/19 04:06 36.5 C 92 H 16 155/92 H 96 02/26/19 23:13 36.4 C L 88 18 154/93 H 98
[2019-02-27] MEDS ORDERED: LEVALBUTEROL TARTRATE 15 GM HFA.AER.AD INH PRN (11:12)
--- NOTE | 2019-02-27 11:53 | Cardiology Progress Note ---
Date of Service February 27, 2019 Assessment & Plan (1) Acute hypoxemic respiratory failure: 73-year-old female who presented with multifactorial respiratory failure, hypoxia with possible complicated bronchitis as well as diastolic heart failure with preserved ejection fraction. Acute decline in renal function is new for patient Echocardiogram demonstrates moderate severe mitral and tricuspid insufficiency which is more pronounced than on prior examinations. She remains in sinus rhythm on chronic sotalol and is anticoagulated. Patient initially responding to therapies and comfortable today. Eliquis reduced given renal insufficiency Atrial fibrillation has been difficult to control in the past both with multiple recurrences at elevated heart rates Mixed etiology suspected with combination of diastolic/valvular heart failure and respiratory distress. Slowly improving clinically Blood pressures improved today after diuresis Patient has lapsed back into atrial fibrillation. Sotalol discontinued due to renal failure we will continue oral metoprolol succinate with relatively good rate control currently Plan AV junction ablation today. Once procedure performed will still require antihypertensive regimen. Patient to remain anticoagulated (2) Tachy-christopher syndrome: (3) Acute renal failure (ARF): Appreciate nephrology input. (4) Paroxysmal atrial fibrillation: Patient was reverted back to sinus/paced rhythm We will keep off sotalol continue anticoagulation with reduced dose Eliquis Clinical course patient will likely require AV junction ablation for management given poor tolerance and efficacy of antiarrhythmic therapy Blood pressures have increased as ANGEL inhibitor held corticosteroids administered Patient started on amlodipine , topical nitrates We will keep patient n.p.o. with anticipation of possible AV junction ablation in a.m. depending on renal function and clinical status (5) Mitral insufficiency: We will continue to follow this course progresses Degree of mitral deficiency has been variable depending on patient's hemodynamics and fluid status and presence or absence of atrial fibrillation Subjective Patient seen and examined, chart, medications, telemetry reviewed. No focal complaints though heart rate running higher, breathing easier but still slightly wheezy. No syncope or near syncope. No chest pains or discomfort. Renal function flat Physical Exam Constitutional: WD/WN, vitals as above Eyes: PERRL, conjunctivae normal, anicteric sclerae ENMT: external ear and nose normal, oropharynx normal Neck: trachea midline, no thyromegaly + thick neck Respiratory: normal respiratory effort, lungs clear to auscultation Auscultation: + wheezes (Scattered wheezes all lung wood increased with cough) Cardiovascular: Rate/Rhythm: + irregularly irregular Heart Sounds: normal S1, normal S2 and + murmur (Grade 2/6 systolic apex and left base); no gallop Palpation: normal PMI Vessels: normal carotid upstroke and radial pulses present; no JVD and no carotid bruit Extremities: + edema (1+) Gastrointestinal (Abdomen): normal bowel sounds, soft, nontender, no hepatosplenomegaly Musculoskeletal: no cyanosis or clubbing, extremities motor strength 5/5 Skin: no rashes, warm and dry Neurologic: PERRL, EOMI, accommodation nl, no face palsy, no dysarthria Psychiatric: A+Ox3, euthymic affect Results & Data Vital Signs (Past 12 Hours) Vital Signs Temp Pulse Resp BP BP Pulse Ox 02/27/19 11:15 36.4 C L 106 H 20 147/91 H 92 02/27/19 07:43 36.4 C L 98 H 18 162/109 H 94 02/27/19 06:58 58 L 16 93 02/27/19 04:06 36.5 C 92 H 16 155/92 H 96 Laboratory Results Laboratory Results - last 24 hr 02/27/19 05:31 Sodium 140 Potassium 3.5 Chloride 108 H Carbon Dioxide 19 L Anion Gap 13.0 H BUN 67 H Creatinine 3.75 H Est Cr Clr Drug Dosing 13.8 Est GFR ( Amer) 13.2 Est GFR (Non-Af Amer) 11.4 BUN/Creatinine Ratio 17.8 Glucose 94 Calcium 9.1 (1) Acute renal failure (ARF) Acute renal failure type: unspecified Qualified Code(s): N17.9 - Acute kidney failure, unspecified
--- NOTE | 2019-02-27 13:31 | Pre Anesthesia Assessment ---
Date of Service February 27, 2019 Pre Sedation Assessment Vital Signs Temp Pulse Resp BP BP Pulse Ox 02/27/19 13:28 115 H 20 168/107 H 96 02/27/19 11:35 92 02/27/19 11:15 36.4 C L 106 H 20 147/91 H 92 02/27/19 07:43 36.4 C L 98 H 18 162/109 H 94 02/27/19 06:58 58 L 16 93 02/27/19 04:06 36.5 C 92 H 16 155/92 H 96 02/26/19 23:13 36.4 C L 88 18 154/93 H 98 02/26/19 19:35 36.6 C 76 18 149/75 H 93 02/26/19 19:14 58 L 16 92 02/26/19 15:30 36.5 C 95 H 18 145/96 H 93 02/26/19 14:58 96 Cardiovascular + tachycardic and + irregularly irregular Respiratory normal respiratory effort, lungs clear to auscultation Pre-Sedation Airway Assessment Smoking Status: Former smoker Hx Sleep Apnea: No Hx Difficult Intubation: No Short, Thick Neck: No Thyromental Distance: < 3.5 Finger Breadths Oral Cavity: + WNL Mallampati Class: III ASA: ASA3 NPO Status Date of Last Intake of Fluids: 02/27/19 Date of Last Intake of Solid Food: 02/27/19 Procedure Planning Contraindications for Sedation: none Current Medications Reviewed: Yes Notes The planned sedation has been discussed with the patient. Informed Consent was obtained. I have identified the patient, determined the appropriateness of sedation and have assessed the patient immediately prior to the procedure. All medicine(s) and interventions are by my order.
--- NOTE | 2019-02-27 13:31 | History & Physical Bridge Note ---
Date of Service February 27, 2019 History & Physical Bridge Note I have examined the patient, reviewed the History & Physical and in the interval since the performance of the History & Physical I have noted the following changes of clinical significance: Pt continues to be in NADIA unclear reason; she is now in persistent AF with moderate ventricular rates are elevated. The hope is that possibly controlling ventricular rates through an AVN ablation will improve MR and her Cardiac output to perfuse kidneys and improve function.
[2019-02-27] MEDS ORDERED: fentaNYL citrate 100 MCG/2 ML VIAL ONE (13:37)
[2019-02-27] MEDS ORDERED: MIDAZOLAM HCL 5 MG/ML 1 ML VIAL ONE (13:37)
[2019-02-27] MEDS ORDERED: CEFAZOLIN 250 MG/ML 1 GM VIAL ONE (13:37)
--- NOTE | 2019-02-27 14:59 | Post Anesthesia Assessment ---
Date of Service February 27, 2019 Post Sedation Assessment Vital Signs Temp Pulse Resp BP BP Pulse Ox 02/27/19 13:28 115 H 20 168/107 H 96 02/27/19 11:35 92 02/27/19 11:15 36.4 C L 106 H 20 147/91 H 92 02/27/19 07:43 36.4 C L 98 H 18 162/109 H 94 02/27/19 06:58 58 L 16 93 02/27/19 04:06 36.5 C 92 H 16 155/92 H 96 02/26/19 23:13 36.4 C L 88 18 154/93 H 98 02/26/19 19:35 36.6 C 76 18 149/75 H 93 02/26/19 19:14 58 L 16 92 02/26/19 15:30 36.5 C 95 H 18 145/96 H 93 Recovery Score Activity: Moves 4 extremities Respiration: Deep Breath/Cough Circulation: +/-20% PreAnes Value Consciousness: Fully Awake Oxygen Saturation: > 92% On Room Air Discharge Sedation Level of Care: Fast Track Phase II Post Sedation Plan On clinical assessment, the patient appears to have tolerated the sedation without complications. Patient is recovering as anticipated. Patient will continue to be monitored by nursing and may be discharged when sedation discharge criteria are met per below protocol. Upon Completions of procedure and additional 15 minutes continue every 5 minute vital signs and the P.A.R. score; then discharge to a Phase I or Fast Track to Phase II per the following guidelines: * Discharge Patient to appropriate Phase II area if PAR is 8 or greater or return to pre- procedure baseline. The post - procedure orders will be as di rected. * If PAR score is less than 8 or not return to pre-procedure baseline then patient will follow Phase I monitoring till PAR is reached for Phase II. The Phase I may be done in procedure room or may call to secure a Phase I area. * If naloxone or flumazenil are used for reversal, hold in Phase I for continued monitoring from when last reversal dose was given for a minimum of 60 minutes or longer pending the nurse and/or physician discretion of patient condition before discharge to Phase II. Please call the Sedation Physician to re-evaluate and complete post-note for discharge to Phase II area. Do NOT discharge from procedure sedation or Phase 1 until post- sedation evaluation note is complete by procedure /sedation MD Sedation Discharge Instructions to be given to the patient at discharge to home.
--- NOTE | 2019-02-27 15:00 | Operative Report ---
Post Operative Report Pre & Post Diagnosis Pre: AF with RVR and heart failure diastolic Post: same plus CHB Operation Date: 02/27/19 12:00 <No data on this case meets the specified criteria> I identified the patient and participated in the time-out.: Yes Procedure Operation Date: 02/27/19 12:00 Actual Procedures p AV Node Ablation - Natalie Adams DO Dual chamber pacemaker reprogramming and interrogation Surgeon Natalie Adams DO Chute Loader none Estimated Blood Loss 5 Findings Consistent with Post-Op Diagnosis Specimens none Description of Procedure see official report I attest to the content of the Intraoperative Record and any orders documented therein. Any exceptions are noted below.
--- NOTE | 2019-02-27 15:59 | Operative Report ---
DATE OF OPERATION: 02/27/2019 PREOPERATIVE DIAGNOSES: Atrial fibrillation, persistent with rapid ventricular response despite AV bruna blockers and antiarrhythmics, chronic diastolic heart failure, acute renal failure and mitral regurgitation. POSTOPERATIVE DIAGNOSES: Atrial fibrillation, persistent with rapid ventricular response despite AV bruna blockers and antiarrhythmics, chronic diastolic heart failure, acute renal failure and mitral regurgitation, complete heart block. PROCEDURE: AV bruna radiofrequency ablation, dual chamber rate responsive permanent pacemaker reprogramming and interrogation. SURGEON: Natalie Adams DO. ASSISTANTS: None. ANESTHESIA: Monitored conscious sedation administered under my supervision by Vannessa Alonzo. Start time 1344, end time 1455. A total of 3 mg of Versed and 75 mcg of fentanyl. INTRAVENOUS FLUIDS: 36 mL. ANTIBIOTICS: 1 gram of Ancef. BLOOD LOSS: 5 mL. URINE OUTPUT: Not applicable. SPECIMENS: None. FINDINGS: See below. DRAINS: None. COMPLICATIONS: None. CONDITION: Stable. 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 She was admitted to [facility] on 02/21/2019, found to be in acute renal failure of unclear etiology. An echocardiogram revealed worsening mitral regurgitation and she was back in atrial fibrillation. The thought was that her atrial fibrillation with moderate ventricular heart rates are affecting her cardiac output and perfusion of the kidneys causing acute kidney insufficiency as well as her mitral regurgitation, so she was recommended an AV bruna ablation. CONSENT: Consent was obtained prior to the patient going into electrophysiology lab. The patient was informed of risks, benefits and alternative procedure. Risks include but not limited to sudden cardiac , cardiac arrhythmias, cerebrovascular accident, myocardial infarction, lead dislodgement, injury to the blood vessels, chamber of the heart, infection and bleeding. The patient understood these risks and she agreed with procedure as planned. Informed consent was obtained. DESCRIPTION OF THE PROCEDURE: The patient was brought into the electrophysiology lab in a fasting state. She was connected to continuous library monitor. A timeout was performed to ensure patient identity and procedure correctly. The patient was prepped and draped over bilateral groins in normal surgical standard fashion. Prophylactic antibiotics were given prior to start of the procedure. [place] precautions were maintained throughout the procedure. Monitored conscious sedation was given throughout the procedure for patient's comfort level. The dual chamber rate responsive permanent pacemaker was interrogated preablation and reprogramed, see below. 10 mL of 1% lidocaine were given in the right femoral groin, then using modified Seldinger technique, venous access with the femoral vein was obtained and a 6-German sheath was inserted without any resistance. The 6-German sheath was then swapped out for an SRO sheath. Then using the 8 mm DF curved FirstRain ablation catheter, the His bundle was mapped by electrogram. The HV was 55 milliseconds. We then went on ablation. Quickly lost ventricular rate and had V pacing at 40. I continued for 3 separate 1 minute ablations at 70 degrees. Then the ablation catheter was removed from the heart under fluoroscopic guidance as well as the sheath and a monitor time period after ablation of 30 minutes was started to confirm that the AV bruna ablation was successful. After our 30-minute waiting period, the dual chamber rate responsive permanent pacemaker was then reprogrammed and interrogated after ablation, see below for the results. Then, the sheath was removed and manual compression was used to establish hemostasis. PREABLATION INTERROGATION: The right atrial fib waves were 4.8 millivolts and the R waves were 7 millivolts. The impedance on the right atrial lead was 437 ohms and the RV lead with 380 ohms and the RV threshold was 0.75 volts at 0.4 milliseconds. The device was then reprogrammed to VVI 40 for the procedure. POST-ABLATION PACEMAKER INTERROGATION AND REPROGRAM FOLLOWS: Fib waves were 5 millivolts. There were no R waves. The right atrial impedance was 437 ohms and the RV impedance was 380 ohms and the RV threshold was 0.75 volts at 0.4 milliseconds. The device was reprogrammed to DDDR with a base rate of 80 and atrial therapies remain on with no stop duration and try to react every 2 hours. IMPRESSION: Successful AV bruna radiofrequency ablation secondary to persistent atrial fibrillation with rapid ventricular response as well as dual chamber rate responsive permanent pacemaker reprogramming and interrogation. PLAN: Transfer the patient back to the floor. Monitor on telemetry and EKG. She is not to do any heavy lifting or squatting for a week and she should keep her followup as scheduled with me in March. I attest to the content of the Intraoperative Record and any orders documented therein. Any exception s are noted below.
[2019-02-27] MEDS: METOPROLOL SUCC 25MG EXT REL TAB PO SCH (21:35)
[2019-02-28] MEDS: NITROGLYCERIN 2% OINTMENT 30GM TUBE EXT SCH ×4 (03:40→20:31)
[2019-02-28] MEDS: IPRATROPIUM BROMIDE NEB SOLN 0.02% 2.5 ML VIAL INH SCH ×4 (04:39→19:20)
[2019-02-28] MEDS: LEVALBUTEROL 1.25MG/0.5ML NEB INH SCH ×4 (04:40→19:20)
[2019-02-28 06:05] LABS: Hemoglobin 12.3 g/dL (12.0-16.0); Mean Corpuscular Hemoglobin 31.9 pg (25-34); Mean Corpuscular Hgb Conc 32.4 g/dL (32-36); Mean Corpuscular Volume 98.7 fL (80-100); Mean Platelet Volume 12.2 fL (7.4-10.4); Platelet Count 132 K/uL (130-400); RDW Standard Deviation 61.1 fL (36.4-46.3); Red Blood Count 3.85 M/uL (4.2-5.4); White Blood Count 12.12 K/uL (4.8-10.8)
[2019-02-28 06:33] LABS: Est GFR (African American) 12.1; Potassium 3.6 mmol/L (3.5-5.1)
[2019-02-28 06:34] LABS: BUN Creatinine Ratio 18.1 (10-20); Calcium 9.1 mg/dl (8.5-10.1); Creatinine Clr Calc Pharmacy 12.8 ml/min; Est GFR (Non-African American) 10.4
[2019-02-28] MEDS: FLUTICASONE PROPIONATE NA SPR 16 GM BTL SCH (08:14)
[2019-02-28] MEDS: levETIRAcetam 500 MG TAB PO SCH ×2 (08:15→20:11)
[2019-02-28] MEDS: AMLODIPINE BESYLATE 5 MG TAB PO SCH ×2 (08:15→20:12)
[2019-02-28] MEDS: METOPROLOL SUCC 25MG EXT REL TAB PO SCH ×2 (08:15→20:13)
[2019-02-28] MEDS: APIXABAN 2.5 MG TAB PO SCH ×2 (08:15→20:12)
[2019-02-28] MEDS: predniSONE 10 MG TABLET PO SCH (08:16)
[2019-02-28] MEDS: PANTOprazole 40 MG TAB PO SCH (08:16)
[2019-02-28] MEDS: BRIMONIDINE TARTRATE 0.2% 5ML OPB SCH ×2 (08:17→20:13)
[2019-02-28] MEDS: BRINZOLAMIDE (AZOPT) OPS 10 ML BTL OPB SCH ×2 (08:17→20:13)
--- NOTE | 2019-02-28 14:11 | Hospitalist Progress Note ---
Date of Service February 28, 2019 Assessment & Plan (1) Atrial fibrillation: Afib recurrent Sotalol discontinued due to NADIA On Metoprolol 100mg BID Eliquis dose reduced to 2.5 mg BID due to NADIA Underwent AV junction ablation by EP cardiology Dr Adams yesterday- given poor tolerance /symptomatic A. 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) Telemetry shows paced rhythm rate controlled (2) Acute hypoxemic respiratory failure: resolved respiratory status improved to baseline denies of othopnea , VALADEZ Multifactorial : due to acute decompensation of Diastolic Heart faliure with preserve EF ( ECHO 02/17/19 : EF 60-65% ) with significant valvular heart disease ( severe Mitral and tricuspid regurgitation ) with Pulmonary HTN ( elevated Pulm pressure > 45 mmhg ( normal 8-20 mm Hg ) possible Pneumonia ( community acquired ) CT chest showed moderate congestive heart failure with moderate pulmonary edema and moderate bilateral pleural effusions. patchy ground glass infiltrates diffusely. Cardiology on board pt been diuresed Diuresis well on lasix 10mg IV BID --> negative about 4L so far IV Lasix 10mg on hold due to worsening ARF ( last dose on 02/26) vol status remains stable NADIA ON CKD STAGE 3 : baseline creatinine 0.8-1.0; presenting creatinine 2.8, progressively worsening 3.8 -> 4.4 appreciate input from nephrology -diuretics has been kep on hold (last dose was on 02/26) as well as ACEI renal function continues to worsen -after Diuretics kept on hold for 48 hrs follow BMP -no evidence of vol overload avoid NSAID's /Contrast studies COMMUNITY ACQUIRED PNEUMONIA: Repeat CXR showed cardiomegaly with moderately improved pulmonary edema. Small pleural effusions with improved aeration of the lung bases. Completed 7 days treatment of abx with doxy and IV Zosyn- Sepsis Resolved Met criteria on admission with elevated WBC, elevated RR and lactic due to above CT chest showed patchy ground glass infiltrate lactic acid normalize Complete antibiotic treatment with doxy and Zosyn 7 days Blood cx no growth respiratory status stable CHF (congestive heart failure): Diastolic heart failure with preserved LV function , severe valvular heart disease presented with Acute decompensation of CHF with volume overload in setting of Arrythmia/Afib Status post AV bruna ablation -vol status remains stable Diuretics and ACEI on hold for acute renal failure HTN (hypertension): on metoprolol 100 mg bid -OP ACEI (low dose) on hold -cont amlodipine 5 mg on Hydralazine Elevated troponin Possible related to demand ischemia ( Type 2 NSTEMI ) due to CHF exacerbation( diastolic dysfunction ) and NADIA with creatinine 2.7 Troponin on admission 0.12 then peak to 0.28, now trending down to 0.25 EKG showed no acute ischemic changes Echo showed no wall motion abnormality no evidence of ACS ( acute coronary event /coronary thrombus or plaque rupture ) cont all cardiac meds cardiology on board CODE STATUS FULL CODE DVT PROPHYLAXIS : on Eliquis Disposition Noted to have significant deconditioning, appreciate PT/OT eval recommends rehab referral made to [facility] Subjective does not offer any new complain S/P AV bruna ablation yesterday no complain of palpitation, chest pain , SOB or dizzy spell no cough , fever or chills complains of being very weak and tired ( which is new for her ) at baseline she walks with a cane , lives at home with , independent in ADL's appreciate input from PT/OT recommends rehab referral made to [facility] Review of Systems Review of Systems: All systems reviewed & are unremarkable except as noted in HPI & below Physical Exam Constitutional: WD/WN, vitals as above no acute distress Eyes: PERRL, conjunctivae normal, anicteric sclerae ENMT: external ear and nose normal, oropharynx normal Neck: trachea midline, no thyromegaly Respiratory: normal respiratory effort; no respiratory distress Auscultation: no crackles and no wheezes Cardiovascular: Vessels: no JVD and no carotid bruit Extremities: normal capillary refill; no calf tenderness and no pedal edema Gastrointestinal (Abdomen): normal bowel sounds, soft, nontender, no hepatosplenomegaly Musculoskeletal: no cyanosis or clubbing, extremities motor strength 5/5 Skin: no rashes, warm and dry Neurologic: PERRL, EOMI, accommodation nl, no face palsy, no dysarthria Psychiatric: A+Ox3, euthymic affect Results & Data Vital Signs (Past 12 Hours) Vital Signs Temp Pulse Pulse Pulse Resp BP BP 02/28/19 13:53 80 125/79 02/28/19 11:55 36.7 C 86 18 118/62 02/28/19 08:01 36.8 C 82 20 129/68 02/28/19 07:04 83 20 02/28/19 06:45 80 02/28/19 03:48 36.4 C L 80 19 134/82 Pulse Ox 02/28/19 13:53 02/28/19 11:55 95 02/28/19 08:01 97 02/28/19 07:04 95 02/28/19 06:45 02/28/19 03:48 97 (1) Atrial fibrillation Atrial fibrillation type: longstanding persistent Qualified Code(s): I48.11 - Longstanding persistent atrial fibrillation
--- NOTE | 2019-02-28 14:35 | Cardiology Progress Note ---
Date of Service February 28, 2019 Assessment & Plan (1) Acute hypoxemic respiratory failure: 73-year-old female who presented with multifactorial respiratory failure, hypoxia with possible complicated bronchitis as well as diastolic heart failure with preserved ejection fraction. Acute decline in renal function is new for patient Echocardiogram demonstrates moderate severe mitral and tricuspid insufficiency which is more pronounced than on prior examinations. Pulmonary status slightly improved Would continue to hold diuretics given renal insufficiency stable weight and hemodynamic Repeat chest x-ray in a.m. (2) Tachy-christopher syndrome: (3) Acute renal failure (ARF): Appreciate nephrology input. (4) Paroxysmal atrial fibrillation: Patient with difficult rate control now persistent atrial fibrillation. Patient underwent successful AV junction ablation with pacemaker already in place. Rates now in the 80s with good tolerance with paced rhythm (5) Mitral insufficiency: We will continue to follow this course progresses Degree of mitral deficiency has been variable depending on patient's hemodynamics and fluid status and presence or absence of atrial fibrillation Repeat chest x-ray in a.m. we will consider repeat echocardiogram same time Subjective V Patient seen and examined, chart, medications, telemetry reviewed. Patient this morning without focal complaint. Blood pressures are better controlled. Heart rates in the 80s consistent with recent AV junction ablation and paced rhythm. No worsening shortness of breath or productive cough the wheezing on forced cough No lower extremity edema Denies fevers or chills Renal function once again slightly worse without signs or examination findings of acute volume overload Physical Exam Constitutional: WD/WN, vitals as above Eyes: PERRL, conjunctivae normal, anicteric sclerae ENMT: external ear and nose normal, oropharynx normal Neck: trachea midline, no thyromegaly + thick neck Respiratory: normal respiratory effort, lungs clear to auscultation Auscultation: + wheezes (Scattered wheezes all lung wood increased with cough) Cardiovascular: Rate/Rhythm: + irregularly irregular Heart Sounds: normal S 1, normal S2 and + murmur (Grade 2/6 systolic apex and left base); no gallop Palpation: normal PMI Vessels: normal carotid upstroke and radial pulses present; no JVD and no carotid bruit Extremities: + edema (1+) Gastrointestinal (Abdomen): normal bowel sounds, soft, nontender, no hepatosplenomegaly Musculoskeletal: no cyanosis or clubbing, extremities motor strength 5/5 Skin: no rashes, warm and dry Neurologic: PERRL, EOMI, accommodation nl, no face palsy, no dysarthria Psychiatric: A+Ox3, euthymic affect Results & Data Vital Signs (Past 12 Hours) Vital Signs Temp Pulse Pulse Pulse Resp BP BP 02/28/19 13:53 80 125/79 02/28/19 11:55 36.7 C 86 18 118/62 02/28/19 08:01 36.8 C 82 20 129/68 02/28/19 07:04 83 20 02/28/19 06:45 80 02/28/19 03:48 36.4 C L 80 19 134/82 Pulse Ox 02/28/19 13:53 02/28/19 11:55 95 02/28/19 08:01 97 02/28/19 07:04 95 02/28/19 06:45 02/28/19 03:48 97 Laboratory Results Laboratory Results - last 24 hr 02/28/19 02/28/19 05:48 05:48 WBC 12.12 H RBC 3.85 L Hgb 12.3 Hct 38.0 MCV 98.7 MCH 31.9 MCHC 32.4 RDW Std Deviation 61.1 H RDW Coeff of Allan 17.0 H Plt Count 132 MPV 12.2 H Sodium 139 Potassium 3.6 Chloride 107 Carbon Dioxide 19 L Anion Gap 13.0 H BUN 73 H Creatinine 4.04 H Est Cr Clr Drug Dosing 12.8 Est GFR ( Amer) 12.1 Est GFR (Non-Af Amer) 10.4 BUN/Creatinine Ratio 18.1 Glucose 92 Calcium 9.1 Magnesium 2.0 (1) Acute renal failure (ARF) Acute renal failure type: unspecified Qualified Code(s): N17.9 - Acute kidney failure, unspecified
--- NOTE | 2019-02-28 17:22 | Nephrology Progress Note ---
Date of Service February 28, 2019 Assessment & Plan (1) Acute renal failure (ARF): baseline creatinine 0.8-1.0; presenting creatinine 2.8, increased further but again only slightly to 4.0 today. valvular HF, vol OL, and AF w/ rates challenging to control and then obligate diuretic driving NADIA; net even if I/o accurate yesterday for I/O. has dipstick proteinuria, trace glucose, multiple e pis; very concentrated urine. concern for some uremia emerging w/ anorexia; would observe for now -for now no FR -hold diuretics; when time to reintroduce should be very small doses -strict I/O -daily bmp -cont to hold acei -lanza out and tolerating (2) CHF (congestive heart failure): variable valvular insufficiency on hx and per cardiology relatively worse on this admission's TTE -continue efforts to control heart rate/rhthym <> s/p 02/27 AV node ablation -have now stopped trial of low dose lasix daily 10 mg iv>> she had it last 02/26 am and would cont to hold (3) HTN (hypertension): on metoprolol 50 mg bid; htn improved after procedure -OP ACEI (low dose) on hold -cont amlodipine 5 mg -added prn IV hydralazine -lasix as above Subjective no c/o; tolerated ablation well; feels no different; wheezing a bit better; no n/v but food is tasting off to her and less po b/c of this; no confusion Review of Systems Review of Systems: All systems reviewed & are unremarkable except as noted in HPI & below Constitutional: + weakness; no fatigue Respiratory: + dyspnea (improved); no cough Cardiovascular: + edema (controlled) Gastrointestinal: + early satiety and + nausea Genitourinary: no dysuria, no urinary frequency and no urinary hesitancy Endocrine: + fatigue Physical Exam Constitutional: well developed, well nourished, + obese and cooperative (sitting in bed on ra) Eyes: EOM intact bilaterally ENMT: Ears: no external ear abnormality Nose: no external nose abnormality Mouth: + dry oral mucous membranes Neck: no nuchal rigidity Respiratory: normal respiratory effort Auscultation: + diminished lung sounds, + rhonchi and + wheezes (today fewer exp wheezes and more symmetric post wood) Cardiovascular: Rate/Rhythm: regular rate and regular rhythm Heart Sounds: + murmur Extremities: no edema Gastrointestinal (Abdomen): Inspection/Auscultation: normal bowel sounds Percussion/Palpation: abdomen soft; abdomen nontender Musculoskeletal: Extremities: strength 5/5 throughout Skin: no rashes, warm and dry Psychiatric: A+Ox3, euthymic affect Speech: normal rate/rhythm/volume of speech Affect: + flat affect Insight: good insight Judgement: good judgement Results & Data Vital Signs (Past 12 Hours) Vital Signs Temp Pulse Pulse Pulse Resp BP Pulse Ox 02/28/19 15:58 80 02/28/19 15:49 36.7 C 80 18 124/80 96 02/28/19 13:53 80 125/79 02/28/19 11:55 36.7 C 86 18 118/62 95 02/28/19 08:01 36.8 C 82 20 129/68 97 02/28/19 07:04 83 20 95 02/28/19 06:45 80 Laboratory Results 02/28/19 05:48 02/28/19 05:48 (1) Acute renal failure (ARF) Acute renal failure type: unspecified Qualified Code(s): N17.9 - Acute kidney failure, unspecified (2) CHF (congestive heart failure) Heart failure chronicity: acute on chronic Heart failure type: unspecified Qualified Code(s): I50.9 - Heart failure, unspecified (3) HTN (hypertension) Hypertension type: essential hypertension Qualified Code(s): I10 - Essential (primary) hypertension
[2019-03-01] MEDS: IPRATROPIUM BROMIDE NEB SOLN 0.02% 2.5 ML VIAL INH SCH ×2 (00:54→07:00)
[2019-03-01] MEDS: LEVALBUTEROL 1.25MG/0.5ML NEB INH SCH ×2 (00:55→06:59)
[2019-03-01 06:34] LABS: BUN Creatinine Ratio 19.6 (10-20); Calcium 9.1 mg/dl (8.5-10.1); Creatinine Clr Calc Pharmacy 12.1 ml/min; Est GFR (African American) 11.1; Est GFR (Non-African American) 9.6; Magnesium 2.2 mg/dl (1.8-2.4); Potassium 4.1 mmol/L (3.5-5.1)
--- NOTE | 2019-03-01 06:59 | XRay Report ---
XR chest 1V portable HISTORY: 73 years-old Female CHF follow-up study in a patient with congestive heart failure COMPARISON: Chest radiograph 02/22/2019, chest CT 02/21/2019 TECHNIQUE: Portable AP view of the chest FINDINGS: Cardiac silhouette is enlarged, unchanged. Pulmonary vascular congestion with persistent interstitial coarsening. Minimal left greater than right lung base opacities suggestive of probable atelectasis. Probable trace pleural effusions. No pneumothorax. Unchanged left subclavian pacer. Reverse right ami ulder total joint arthroplasty. Degenerative changes of the shoulders and spine. IMPRESSION: 1. Cardiomegaly with unchanged mild pulmonary edema. 2. Trace pleural effusions. The above report was generated using voice recognition software. It may contain grammatical, syntax o r spelling errors. Electronically signed by: Arpan Singh M.D. 03/01/2019 6:57 AM
[2019-03-01] MEDS: BRIMONIDINE TARTRATE 0.2% 5ML OPB SCH ×2 (08:26→21:25)
[2019-03-01] MEDS: METOPROLOL SUCC 25MG EXT REL TAB PO SCH ×2 (08:26→21:27)
[2019-03-01] MEDS: BRINZOLAMIDE (AZOPT) OPS 10 ML BTL OPB SCH ×2 (08:26→21:24)
[2019-03-01] MEDS: AMLODIPINE BESYLATE 5 MG TAB PO SCH ×2 (08:27→21:26)
[2019-03-01] MEDS: APIXABAN 2.5 MG TAB PO SCH ×2 (08:27→21:25)
[2019-03-01] MEDS: predniSONE 10 MG TABLET PO SCH (08:28)
[2019-03-01] MEDS: PANTOprazole 40 MG TAB PO SCH (08:28)
[2019-03-01] MEDS: levETIRAcetam 500 MG TAB PO SCH ×2 (08:28→21:26)
[2019-03-01] MEDS: FLUTICASONE PROPIONATE NA SPR 16 GM BTL SCH (08:29)
--- NOTE | 2019-03-01 09:20 | Cardiology Progress Note ---
Date of Service March 01, 2019 Assessment & Plan (1) Acute hypoxemic respiratory failure: 73-year-old female who presented with multifactorial respiratory failure, hypoxia with possible complicated bronchitis as well as diastolic heart failure with preserved ejection fraction. 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 Creatinine continues to rise slowly. We will continue apixaban for now although may need to consider transition to alternative dosing versus warfarin (4) Paroxysmal atrial fibrillation: Now status post successful AV junction ablation (5) Mitral insufficiency: Repeat echocardiogram today Subjective Patient seen and examined, chart, medications, telemetry reviewed. Still somewhat dyspneic with exertion this morning. Wheezy cough still present Weight stable urine outs mildly diminished No arrhythmias Physical Exam Constitutional: WD/WN, vitals as above Eyes: PERRL, conjunctivae normal, anicteric sclerae ENMT: external ear and nose normal, oropharynx normal Neck: trachea midline, no thyromegaly + thick neck Respiratory: normal respiratory effort, lungs clear to auscultation Auscultation: + wheezes (Scattered wheezes worse with cough, right greater than left) and + bronchovesicular breath sounds Cardiovascular: Rate/Rhythm: regular rate and regular rhythm (Paced) Heart Sounds: normal S1, normal S2 and + murmur (Grade 2/6 systolic apex and left base); no gallop Palpation: normal PMI Vessels: normal carotid upstroke and radial pulses present; no JVD and no carotid bruit Extremities: + edema (1+) Gastrointestinal (Abdomen): normal bowel sounds, soft, nontender, no hepatosplenomegaly Musculoskeletal: no cyanosis or clubbing, extremities motor strength 5/5 Skin: no rashes, warm and dry Neurologic: PERRL, EOMI, accommodation nl, no face palsy, no dysarthria Psychiatric: A+Ox3, euthymic affect Results & Data Vital Signs (Past 12 Hours) Vital Signs Temp Pulse Resp BP Pulse Ox 03/01/19 07:15 36.3 C L 88 18 164/93 H 95 03/01/19 07:00 79 16 95 03/01/19 04:29 36.6 C 79 19 142/83 H 95 02/28/19 23:17 36.7 C 80 20 129/81 96 (1) Acute renal failure (ARF) Acute renal failure type: unspecified Qualified Code(s): N17.9 - Acute kidney failure, unspecified
[2019-03-01] MEDS ORDERED: IPRATROPIUM BROMIDE NEB SOLN 0.02% 2.5 ML VIAL INH PRN (09:33)
[2019-03-01] MEDS ORDERED: LEVALBUTEROL 1.25MG/0.5ML NEB INH PRN (09:33)
--- NOTE | 2019-03-01 15:33 | Nephrology Progress Note ---
Date of Service March 01, 2019 Assessment & Plan (1) Acute renal failure (ARF): baseline creatinine 0.8-1.0; presenting creatinine 2.8, increased further to 4.3 today. valvular HF, vol OL, and AF w/ rates challenging to control and then obligate diuretic driving NADIA. has dipstick proteinuria, trace glucose, multiple epis; very concentrated urine. concern for some uremia emerging w/ anorexia; would observe for now -for now no FR -hold diuretics; when time to reintroduce should be very small doses -strict I/O -daily bmp -cont to hold acei -lanza out and tolerating -cardiology following for adjustment as needed to AC (2) CHF (congestive heart failure): variable valvular insufficiency on hx and per cardiology relatively worse on this admission's TTE on 02/21 and on TTE 03/01 w/ some improvement in this -continue efforts to control heart rate/rhthym <> s/p 02/27 AV node ablation -have now stopped trial of low dose lasix daily 10 mg iv>> she had it last 02/26 am and would cont to hold (3) HTN (hypertension): on metoprolol 50 mg bid; htn improved after procedure -OP ACEI (low dose) on hold -cont amlodipine 5 mg -cont prn IV hydralazine -lasix as above Subjective ongoing anorexia; no sob; wheezing better; no voiding issues, edema controlled; no f/c or focal/generalized weakness Review of Systems Review of Systems: All systems reviewed & are unremarkable except as noted in HPI & below Physical Exam Constitutional: well developed, well nourished, + obese and cooperative (sitting in bed on ra) Eyes: EOM intact bilaterally ENMT: Ears: no external ear abnormality Nose: no external nose abnormality Mouth: + dry oral mucous membranes Neck: no nuchal rigidity Respiratory: normal respiratory effort Auscultation: + diminished lung sounds, + crackles (some end inspiratory crackles) and + rhonchi Cardiovascular: Rate/Rhythm: regular rate and regular rhythm Heart Sounds: + murmur Extremities: no edema Gastrointestinal (Abdomen): Inspection/Auscultation: normal bowel sounds Percussion/Palpation: abdomen soft; abdomen nontender Musculoskeletal: Extremities: strength 5/5 throughout Skin: no rashes, warm and dry Neurologic: jett, fluent speech, no tremor Psychiatric: A+Ox3, euthymic affect Speech: normal rate/rhythm/volume of speech Affect: + flat affect Insight: good insight Judgement: good judgement Results & Data Vital Signs (Past 12 Hours) Vital Signs Temp Pulse Pulse Resp BP Pulse Ox 03/01/19 12:58 22 138/66 03/01/19 11:10 36.3 C L 80 19 136/80 93 03/01/19 07:15 36.3 C L 88 18 164/93 H 95 03/01/19 07:00 79 16 95 03/01/19 06:45 80 03/01/19 04:29 36.6 C 79 19 142/83 H 95 Laboratory Results Abnormal lab results 03/01/19 Range/Units 05:21 Carbon Dioxide 19 L (21-32) mmol/L Anion Gap 12.0 H (3-11) BUN 84 H (7-18) mg/dl Creatinine 4.31 H (0.6-1.2) mg/dl (1) Acute renal failure (ARF) Acute renal failure type: unspecified Qualified Code(s): N17.9 - Acute kidney failure, unspecified (2) CHF (congestive heart failure) Heart failure chronicity: acute on chronic Heart failure type: unspecified Qualified Code(s): I50.9 - Heart failure, unspecified (3) HTN (hypertension) Hypertension type: essential hypertension Qualified Code(s): I10 - Essential (primary) hypertension
--- NOTE | 2019-03-01 17:01 | Hospitalist Progress Note ---
Date of Service March 01, 2019 Assessment & Plan (1) Atrial fibrillation: Afib Underwent AV junction ablation by EP cardiology Dr Adams yesterday- given poor tolerance /symptomatic A. 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) Telemetry shows paced rhythm rate controlled at 80's On Metoprolol 100mg BID Eliquis dose reduced to 2.5 mg BID due to NADIA may need further dose reduction or change to Coumadin as pt renal clearance /kidney function continues to decline (2) Acute hypoxemic respiratory failure: resolved respiratory status improved to baseline denies of othopnea , VALADEZ Multifactorial : due to acute decompensation of Diastolic Heart faliure with preserve EF ( ECHO 02/17/19 : EF 60-65% ) with significant valvular heart disease ( severe Mitral and tricuspid regurgitation ) with Pulmonary HTN ( elevated Pulm pressure > 45 mmhg ( normal 8-20 mm Hg ) possible Pneumonia ( community acquired ) Chest x-ray continues to demonstrate increased interstitial markings right greater than left possible volume overload versus interstitial lung disease Cardiology on board pt been diuresed with IV Lasix IV Lasix 10mg on hold due to worsening ARF ( last dose on 02/26) vol status remains stable NADIA ON CKD STAGE 3 : baseline creatinine 0.8-1.0; presenting creatinine 2.8, progressively worsening 3.8 -> 4.4 appreciate input from nephrology -diuretics has been kept on hold (last dose was on 02/26) as well as ACEI /no evidence of vol overload renal function continues to worsen -after Diuretics kept on hold /on Eliquis lower dose but may need to consider to transition to Coumadin if GFR cont to declined follow BMP - avoid NSAID's /Contrast studies COMMUNITY ACQUIRED PNEUMONIA: Repeat CXR showed cardiomegaly with moderately improved pulmonary edema. Small pleural effusions with improved aeration of the lung bases. Completed 7 days treatment of abx with doxy and IV Zosyn- Sepsis Resolved Met criteria on admission with elevated WBC, elevated RR and lactic due to above CT chest showed patchy ground glass infiltrate lactic acid normalize Complete antibiotic treatment with doxy and Zosyn 7 days Blood cx no growth respiratory status stable CHF (congestive heart failure): Diastolic heart failure with preserved LV function , severe valvular heart disease presented with Acute decompensation of CHF with volume overload in setting of Arrythmia/Afib Status post AV bruna ablation -vol status remains stable Diuretics and ACEI on hold for acute renal failure HTN (hypertension): on metoprolol 100 mg bid -OP ACEI (low dose) on hold -cont amlodipine 5 mg on Hydralazine Elevated troponin Possible related to demand ischemia ( Type 2 NSTEMI ) due to CHF exacerbation( diastolic dysfunction ) and NADIA with creatinine 2.7 Troponin on admission 0.12 then peak to 0.28, now trending down to 0.25 EKG showed no acute ischemic changes Echo showed no wall motion abnormality no evidence of ACS ( acute coronary event /coronary thrombus or plaque rupture ) cont all cardiac meds cardiology on board CODE STATUS FULL CODE DVT PROPHYLAXIS : on Eliquis Disposition Noted to have significant deconditioning, appreciate PT/OT eval recommends rehab referral made to [facility] Subjective pt offers no new complains feels tired and weak denies of any SOB or chest heaviness no fever or chills Physical Exam Constitutional: WD/WN, vitals as above no acute distress Eyes: PERRL, conjunctivae normal, anicteric sclerae ENMT: external ear and nose normal, oropharynx normal Neck: trachea midline, no thyromegaly Respiratory: normal respiratory effort; no respiratory distress Ausculta tion: no crackles and no wheezes Cardiovascular: Vessels: no JVD and no carotid bruit Extremities: normal capillary refill; no calf tenderness and no pedal edema Gastrointestinal (Abdomen): normal bowel sounds, soft, nontender, no hepatosplenomegaly Musculoskeletal: no cyanosis or clubbing, extremities motor strength 5/5 Skin: no rashes, warm and dry Neurologic: PERRL, EOMI, accommodation nl, no face palsy, no dysarthria Psychiatric: A+Ox3, euthymic affect Results & Data Vital Signs (Past 12 Hours) Vital Signs Temp Pulse Pulse Resp BP Pulse Ox 03/01/19 16:26 36.3 C L 80 18 128/80 92 03/01/19 12:58 22 138/66 03/01/19 11:10 36.3 C L 80 19 136/80 93 03/01/19 07:15 36.3 C L 88 18 164/93 H 95 03/01/19 07:00 79 16 95 03/01/19 06:45 80 (1) Atrial fibrillation Atrial fibrillation type: longstanding persistent Qualified Code(s): I48.11 - Longstanding persistent atrial fibrillation
[2019-03-02] MEDS: AMLODIPINE BESYLATE 5 MG TAB PO SCH ×2 (07:49→20:19)
[2019-03-02] MEDS: PANTOprazole 40 MG TAB PO SCH (07:50)
[2019-03-02] MEDS: METOPROLOL SUCC 25MG EXT REL TAB PO SCH ×2 (07:50→20:19)
[2019-03-02] MEDS: levETIRAcetam 500 MG TAB PO SCH ×2 (07:52→20:19)
[2019-03-02] MEDS: predniSONE 10 MG TABLET PO SCH (07:52)
[2019-03-02] MEDS: APIXABAN 2.5 MG TAB PO SCH (07:52)
[2019-03-02] MEDS: BRINZOLAMIDE (AZOPT) OPS 10 ML BTL OPB SCH ×2 (07:53→20:21)
[2019-03-02] MEDS: BRIMONIDINE TARTRATE 0.2% 5ML OPB SCH ×2 (07:53→20:20)
[2019-03-02] MEDS: FLUTICASONE PROPIONATE NA SPR 16 GM BTL SCH ×2 (07:53→08:09)
--- NOTE | 2019-03-02 11:18 | Hospitalist Progress Note ---
Date of Service March 02, 2019 Subjective Sotalol Dced as it is contraindicated for GFR < 40 Pt's current GFR ~12 ( 03/01/19) -Labs for today ordered , report pending will DC Eliquis and start pt on Coumadin Pt's Eliquis dose was reduced to 2.5 mg PO BID as Cr was elevated > 1.5 Cr continues to worsen ( cr 4.31 /GFR 12.1 ) not safe to continue on NOAC's not know the extent of renal clearance FOR ELIQUIS dosing PER UPTODATE : Patients with a serum creatinine >2.5 mg/dL or CrCl <25 mL/minute (as determined by Cockcroft-Gault equation) were excluded from clinical trials (Joyce 2011; Tari 2011). pt is started on Coumadin low dose 3 mg PO daily -for stroke prophylaxis :moderate to high risk for embolic CVA - calculated CHA2-VAsc Score 5( 7.2% stroke risk per year/) follow PT/INR daily ; Goal INR 2-3 Ivory Real MD Results & Data Vital Signs (Past 12 Hours) Vital Signs Temp Pulse Pulse Resp BP BP Pulse Ox 03/02/19 07:45 36.8 C 79 20 167/96 H 99 03/02/19 04:34 36.5 C 79 20 121/76 95 03/01/19 23:20 36.5 C 80 18 132/82 100
[2019-03-02 11:32] LABS: Hematocrit (blood only) 36.9 % (37-47); Hemoglobin 12.1 g/dL (12.0-16.0); Mean Corpuscular Hemoglobin 31.9 pg (25-34); Mean Corpuscular Hgb Conc 32.8 g/dL (32-36); Mean Corpuscular Volume 97.4 fL (80-100); Nucleated RBC # (auto) 0.08 K/uL (0-0); Nucleated RBC % (auto) 0.4 %; Platelet Count 179 K/uL (130-400); RDW Coefficient of Variation 16.8 % (11.5-14.5); RDW Standard Deviation 59.3 fL (36.4-46.3); Red Blood Count 3.79 M/uL (4.2-5.4); White Blood Count 17.66 K/uL (4.8-10.8)
[2019-03-02 12:01] LABS: BUN Creatinine Ratio 22.9 (10-20); Calcium 9.1 mg/dl (8.5-10.1); Creatinine Clr Calc Pharmacy 12.3 ml/min; Est GFR (African American) 11.3; Est GFR (Non-African American) 9.8; Potassium 3.8 mmol/L (3.5-5.1)
--- NOTE | 2019-03-02 16:03 | Hospitalist Progress Note ---
Date of Service March 02, 2019 Assessment & Plan (1) Atrial fibrillation: Afib Underwent AV junction ablation by EP cardiology Dr Adams given poor tolerance /symptomatic A. 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) pt remains in paced rhythm rate controlled at 80's On Metoprolol 100mg BID Sotalol Dced as it is contraindicated for GFR < 40 Pt's current GFR ~12 ( 03/01/19) -Labs for today ordered , report pending will DC Eliquis and start pt on Coumadin Pt's Eliquis dose was reduced to 2.5 mg PO BID as Cr was elevated > 1.5 Cr continues to worsen ( cr 4.31 /GFR 12.1 ) not safe to continue on NOAC's not know the extent of renal clearance FOR ELIQUIS dosing PER UPTODATE : Patients with a serum creatinine >2.5 mg/dL or CrCl <25 mL/minute (as determined by Cockcroft-Gault equation) were excluded from clinical trials (Joyce 2011; Tair 2011). pt is started on Coumadin low dose 3 mg PO daily -for stroke prophylaxis :modera te to high risk for embolic CVA - calculated CHA2-VAsc Score 5( 7.2% stroke risk per year/) follow PT/INR daily ; Goal INR 2-3 (2) Acute hypoxemic respiratory failure: resolved respiratory status improved to baseline denies of othopnea , VALADEZ Multifactorial : due to acute decompensation of Diastolic Heart faliure with preserve EF ( ECHO 02/17/19 : EF 60-65% ) with significant valvular heart disease ( severe Mitral and tricuspid regurgitation ) with Pulmonary HTN ( elevated Pulm pressure > 45 mmhg ( normal 8-20 mm Hg ) possible Pneumonia ( community acquired ) Chest x-ray continues to demonstrate increased interstitial markings right greater than left possible volume overload versus interstitial lung disease Cardiology on board pt been diuresed with IV Lasix IV Lasix 10mg on hold due to worsening ARF ( last dose on 02/26) vol status remains stable BRONCHITIS ; pt continues to have dry non productive cough cont Leukocytosis noted ordered for Doxycycline complete 5 days tx NADIA ON CKD STAGE 3 : baseline creatinine 0.8-1.0; presenting creatinine 2.8, progressively worsening 3.8 -> 4.4 appreciate input from nephrology -diuretics has been kept on hold (last dose was on 02/26) as well as ACEI /no evidence of vol overload renal function continues to worsen -after Diuretics kept on hold /on Eliquis lower dose but may need to consider to transition to Coumadin if GFR cont to declined follow BMP - avoid NSAID's /Contrast studies COMMUNITY ACQUIRED PNEUMONIA: Repeat CXR showed cardiomegaly with moderately improved pulmonary edema. Small pleural effusions with improved aeration of the lung bases. Completed 7 days treatment of abx with doxy and IV Zosyn- Sepsis Resolved Met criteria on admission with elevated WBC, elevated RR and lactic due to above CT chest showed patchy ground glass infiltrate lactic acid normalize Complete antibiotic treatment with doxy and Zosyn 7 days Blood cx no growth respiratory status stable CHF (congestive heart failure): Diastolic heart failure with preserved LV function , severe valvular heart disease presented with Acute decompensation of CHF with volume overload in setting of Arrythmia/Afib Status post AV bruna ablation -vol status remains stable Diuretics and ACEI on hold for acute renal failure HTN (hypertension): on metoprolol 100 mg bid -OP ACEI (low dose) on hold -cont amlodipine 5 mg on Hydralazine Elevated troponin Possible related to demand ischemia ( Type 2 NSTEMI ) due to CHF exacerbation( diastolic dysfunction ) and NADIA with creatinine 2.7 Troponin on admission 0.12 then peak to 0.28, now trending down to 0.25 EKG showed no acute ischemic changes Echo showed no wall motion abnormality no evidence of ACS ( acute coronary event /coronary thrombus or plaque rupture ) cont all cardiac meds cardiology on board CODE STATUS FULL CODE DVT PROPHYLAXIS : on Eliquis Disposition Noted to have significant deconditioning, appreciate PT/OT eval recommends rehab referral made to [facility] Subjective pt reports of dry non productive cough no fever or chills no chest pain or SOB , orthopnea persistent generalized weakness and faituge Physical Exam Constitutional: WD/WN, vitals as above no acute distress Eyes: PERRL, conjunctivae normal, anicteric sclerae ENMT: external ear and nose normal, oropharynx normal Neck: trachea midline, no thyromegaly Respiratory: normal respiratory effort; no respiratory distress Auscultation: no crackles and no wheezes Cardiovascular: Vessels: no JVD and no carotid bruit Extremities: normal capillary refill; no calf tenderness and no pedal edema Gastrointestinal (Abdomen): normal bowel sounds, soft, nontender, no hepatosplenomegaly Musculoskeletal: no cyanosis or clubbing, extremities motor strength 5/5 Skin: no rashes, warm and dry Neurologic: PERRL, EOMI, accommodation nl, no face palsy, no dysarthria Psychiatric: A+Ox3, euthymic affect Results & Data Vital Signs (Past 12 Hours) Vital Signs Temp Pulse Pulse Pulse Resp BP BP 03/02/19 15:48 36.2 C L 80 16 158/78 H 03/02/19 15:25 80 03/02/19 13:28 80 03/02/19 12:06 36.8 C 82 18 141/77 H 03/02/19 07:45 36.8 C 79 20 167/96 H 03/02/19 04:34 36.5 C 79 20 121/76 Pulse Ox 03/02/19 15:48 96 03/02/19 15:25 03/02/19 13:28 03/02/19 12:06 95 03/02/19 07:45 99 03/02/19 04:34 95 (1) Atrial fibrillation Atrial fibrillation type: longstanding persistent Qualified Code(s): I48.11 - Longstanding persistent atrial fibrillation
[2019-03-02] MEDS: WARFARIN SOD 2.5 MG TAB PO SCH (16:09)
[2019-03-02] MEDS: DOXYCYCLINE HYCLATE 100 MG CAP PO SCH (17:42)
[2019-03-03] MEDS: predniSONE 10 MG TABLET PO SCH (07:54)
[2019-03-03] MEDS: METOPROLOL SUCC 25MG EXT REL TAB PO SCH (07:54)
[2019-03-03] MEDS: DOXYCYCLINE HYCLATE 100 MG CAP PO SCH (07:54)
[2019-03-03] MEDS: BRIMONIDINE TARTRATE 0.2% 5ML OPB SCH ×2 (07:54→20:14)
[2019-03-03] MEDS: AMLODIPINE BESYLATE 5 MG TAB PO SCH ×2 (07:54→20:16)
[2019-03-03] MEDS: PANTOprazole 40 MG TAB PO SCH (07:54)
[2019-03-03] MEDS: levETIRAcetam 500 MG TAB PO SCH ×2 (07:54→20:16)
[2019-03-03] MEDS: BRINZOLAMIDE (AZOPT) OPS 10 ML BTL OPB SCH ×2 (07:55→20:14)
[2019-03-03] MEDS: FLUTICASONE PROPIONATE NA SPR 16 GM BTL SCH (07:55)
[2019-03-03 07:57] LABS: INR 1.3 (0.9-1.1); Prothrombin Time 12.7 Seconds (9.0-12.0)
--- NOTE | 2019-03-03 09:37 | Hospitalist Progress Note ---
Date of Service March 03, 2019 Assessment & Plan (1) Atrial fibrillation: Afib Underwent AV junction ablation by EP cardiology Dr Adams given poor tolerance /symptomatic A. 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) pt remains in paced rhythm rate controlled at 80's pt is continued on Metoprolol 100mg BID Sotalol Dced as it is contraindicated for GFR < 40 Pt's current GFR ~12 Pt's Eliquis dose was reduced to 2.5 mg PO BID as Cr was elevated > 1.5 Cr continues to worsen ( cr 4.31 /GFR 12.1 ) not safe to continue on NOAC's not know the extent of renal clearance FOR ELIQUIS dosing PER UPTODATE : Patients with a serum creatinine >2.5 mg/dL or CrCl <25 mL/minute (as determined by Cockcroft-Gault equation) were excluded from clinical trials (Joyce 2011; Tari 2011). will DC Eliquis and pt is started on Coumadin pt is started on Coumadin low dose 3 mg PO daily -for stroke prophylaxis :moderate to high risk for embolic CVA - calculated CHA2-VAsc Score 5( 7.2% stroke risk per year/) follow PT/INR daily ; Goal INR 2-3 (2) Acute hypoxemic respiratory failure: resolved respiratory status improved to baseline no requiring supplemental 02 , in room air denies of othopnea , VALADEZ presented with progressive SOB /Hypoxia : Multifactorial : due to acute decompensation of Diastolic Heart faliure with preserve EF ( ECHO 02/17/19 : EF 60-65% ) with significant valvular heart disease ( severe Mitral and tricuspid regurgitation ) with Pulmonary HTN ( elevated Pulm pressure > 45 mmhg ( normal 8-20 mm Hg ) possible Pneumonia ( community acquired ) Chest x-ray continues to demonstrate increased interstitial markings right greater than left possible volume overload versus interstitial lung disease Completed 7 days treatment of abx with doxy and IV Zosyn Cardiology on board IV Lasix 10mg on hold due to worsening ARF ( last dose on 02/26) vol status remains stable NADIA ON CKD STAGE 3 : baseline creatinine 0.8-1.0; presenting creatinine 2.8, progressively worsening 3.8 -> 4.4 appreciate input from nephrology -diuretics has been kept on hold (last dose was on 02/26) as well as ACEI /no evidence of vol overload renal function continues to worsen -after Diuretics kept on hold /on Eliquis lower dose but may need to consider to transition to Coumadin if GFR cont to declined follow BMP - avoid NSAID's /Contrast studies vol status and electrolytes been stable plan to transfer to SNF tomorrow if Cr remains stable will need routing Lab work /BMP check in outpatient COMMUNITY ACQUIRED PNEUMONIA: Repeat CXR showed cardiomegaly with moderately improved pulmonary edema. Small pleural effusions with improved aeration of the lung bases. Completed 7 days treatment of abx with doxy and IV Zosyn- Sepsis Resolved Met criteria on admission with elevated WBC, elevated RR and lactic due to above CT chest showed patchy ground glass infiltrate lactic acid normalize Complete antibiotic treatment with doxy and Zosyn 7 days Blood cx no growth respiratory status stable CHF (congestive heart failure): Diastolic heart failure with preserved LV function , severe valvular heart disease presented with Acute decompensation of CHF with volume overload in setting of Arrythmia/Afib Status post AV bruna ablation -vol status remains stable Diuretics and ACEI on hold for acute renal failure HTN (hypertension): on metoprolol 100 mg bid -OP ACEI (low dose) on hold -cont amlodipine 5 mg on Hydralazine Elevated troponin Possible related to demand ischemia ( Type 2 NSTEMI ) due to CHF exacerbation( diastolic dysfunction ) and NADIA with creatinine 2.7 Troponin on admission 0.12 then peak to 0.28, now trending down to 0.25 EKG showed no acute ischemic changes Echo showed no wall motion abnormality no evidence of ACS ( acute coronary event /coronary thrombus or plaque rupture ) cont all cardiac meds cardiology on board CODE STATUS FULL CODE DVT PROPHYLAXIS : on coumadin Disposition Noted to have significant deconditioning, appreciate PT/OT eval recommends rehab referral made to [facility] plan to discharge pt to [facility] tomorrow if renal function remains stable plan of care d/w pt's Paulie Richards will provide transport to SNF Subjective pt continues to complain of feeling weak and tired has dry non productive cough no fever or chills no complain of SOB , chest heaviness, dizzy spell or palpitation Spoke with Pt's Paulie Gómezjeanine -present at bedside says pt has been mostly sitting on chair , has been minimum ambulatory for past 6-7 months - hoping for pt to be able to go to [facility] for short term rehab to improved strength and mobility Physical Exam Constitutional: WD/WN, vitals as above no acute distress Eyes: PERRL, conjunctivae normal, anicteric sclerae ENMT: external ear and nose normal, oropharynx normal Neck: trachea midline, no thyromegaly Respiratory: normal respiratory effort; no respiratory distress Auscult ation: no crackles and no wheezes Cardiovascular: Vessels: no JVD and no carotid bruit Extremities: normal capillary refill; no calf tenderness and no pedal edema Gastrointestinal (Abdomen): normal bowel sounds, soft, nontender, no hepatosplenomegaly Musculoskeletal: no cyanosis or clubbing, extremities motor strength 5/5 Skin: no rashes, warm and dry Neurologic: PERRL, EOMI, accommodation nl, no face palsy, no dysarthria Psychiatric: A+Ox3, euthymic affect Results & Data Vital Signs (Past 12 Hours) Vital Signs Temp Pulse Pulse Resp BP BP Pulse Ox 03/03/19 08:16 80 03/03/19 07:32 36.2 C L 84 16 148/53 H 95 03/03/19 04:32 36.4 C L 80 18 127/76 95 03/02/19 23:49 80 03/02/19 22:50 36.4 C L 81 20 121/75 95 (1) Atrial fibrillation Atrial fibrillation type: longstanding persistent Qualified Code(s): I48.11 - Longstanding persistent atrial fibrillation
[2019-03-03 09:50] LABS: Basophils # (auto) 0.01 K/uL (0-0.2); Basophils % (auto) 0.1 %; Eosinophils # (auto) 0.17 K/uL (0-0.5); Eosinophils % (auto) 1.1 %; Hematocrit (blood only) 38.5 % (37-47); Hemoglobin 12.5 g/dL (12.0-16.0); Immature Granulocytes # (auto) 0.08 K/uL (0.00-0.02); Immature Granulocytes % (auto) 0.5 %; Lymphocytes # (auto) 1.51 K/uL (1.2-3.4); Lymphocytes % (auto) 9.8 %; Mean Corpuscular Hemoglobin 31.7 pg (25-34); Mean Corpuscular Hgb Conc 32.5 g/dL (32-36); Mean Corpuscular Volume 97.7 fL (80-100); Mean Platelet Volume 11.8 fL (7.4-10.4); Monocytes # (auto) 1.37 K/uL (0.11-0.59); Monocytes % (auto) 8.9 %; Neutrophils # (auto) 12.21 K/uL (1.4-6.5); Neutrophils % (auto) 79.6 %; Platelet Count 204 K/uL (130-400); RDW Coefficient of Variation 16.7 % (11.5-14.5); RDW Standard Deviation 60.5 fL (36.4-46.3); Red Blood Count 3.94 M/uL (4.2-5.4); White Blood Count 15.35 K/uL (4.8-10.8)
[2019-03-03 09:55] LABS: BUN Creatinine Ratio 25.2 (10-20); Calcium 9.2 mg/dl (8.5-10.1); Creatinine Clr Calc Pharmacy 12.5 ml/min; Est GFR (African American) 11.5; Est GFR (Non-African American) 9.9; Potassium 3.9 mmol/L (3.5-5.1)
[2019-03-03] MEDS: WARFARIN SOD 2.5 MG TAB PO SCH (15:59)
[2019-03-03] MEDS: METOPROLOL SUCC 50MG EXT REL TAB PO SCH (20:16)
[2019-03-04 06:13] LABS: Hematocrit (blood only) 37.2 % (37-47); Hemoglobin 12.3 g/dL (12.0-16.0); Mean Corpuscular Hemoglobin 32.1 pg (25-34); Mean Corpuscular Hgb Conc 33.1 g/dL (32-36); Mean Corpuscular Volume 97.1 fL (80-100); Mean Platelet Volume 11.8 fL (7.4-10.4); Platelet Count 218 K/uL (130-400); RDW Coefficient of Variation 16.5 % (11.5-14.5); RDW Standard Deviation 58.6 fL (36.4-46.3); Red Blood Count 3.83 M/uL (4.2-5.4); White Blood Count 14.58 K/uL (4.8-10.8)
[2019-03-04 06:53] LABS: BUN Creatinine Ratio 23.8 (10-20); Calcium 9.1 mg/dl (8.5-10.1); Creatinine Clr Calc Pharmacy 12.3 ml/min; Est GFR (African American) 11.2; Est GFR (Non-African American) 9.6
[2019-03-04] MEDS: FLUTICASONE PROPIONATE NA SPR 16 GM BTL SCH (07:51)
[2019-03-04] MEDS: levETIRAcetam 500 MG TAB PO SCH ×2 (07:52→21:02)
[2019-03-04] MEDS: AMLODIPINE BESYLATE 5 MG TAB PO SCH ×2 (07:52→21:03)
[2019-03-04] MEDS: METOPROLOL SUCC 50MG EXT REL TAB PO SCH ×2 (07:53→21:03)
[2019-03-04] MEDS: PANTOprazole 40 MG TAB PO SCH (07:53)
[2019-03-04] MEDS: predniSONE 10 MG TABLET PO SCH (07:53)
[2019-03-04] MEDS: BRIMONIDINE TARTRATE 0.2% 5ML OPB SCH ×2 (07:53→21:04)
[2019-03-04] MEDS: BRINZOLAMIDE (AZOPT) OPS 10 ML BTL OPB SCH ×2 (07:53→21:04)
[2019-03-04 08:03] LABS: INR 2.4 (0.9-1.1); Prothrombin Time 23.5 Seconds (9.0-12.0)
[2019-03-04] MEDS: PROMETHAZINE HCL 12.5 MG in SODIUM CHLORIDE 0.9% 50 ML IV PRN (08:51)
--- NOTE | 2019-03-04 14:23 | Hospitalist Progress Note ---
Date of Service March 04, 2019 Subjective ATTENDING NOTE : got a call from Pt's Clark Mason worried about pt being depressed for the Last 6 months , pt been mostly staying in bed sleeping long hours , minimally motivated to do daily activities /routine has been very withdrawn Mentioned few times to -that she does not wish to live any more like this is requesting to asses pt for depression and possible starting on Antidepressant if appropriate Psych Consult requested Pt is waiting for insurance approval for Skilled rehab discharge date is uncertain Ivory Real MD Results & Data Vital Signs (Past 12 Hours) Vital Signs Temp Pulse Pulse Resp BP BP Pulse Ox 03/04/19 09:00 80 03/04/19 07:18 36.3 C L 67 18 146/81 H 96 03/04/19 03:18 36.4 C L 80 16 120/82 93
[2019-03-04] MEDS: WARFARIN SOD 2.5 MG TAB PO SCH (16:09)
--- NOTE | 2019-03-04 16:55 | Psychiatric Consultation ---
Date of Consultation March 04, 2019 Impression / Recommendations Impression 73-year-old female admitted medically on 02/21/2019 after presenting to the ED with cough and SOB. Pt has been treated for multiple medical concerns, having nephrology and cardiology weighing in on recommendations. Psychiatric consultation was requested to evaluate patient for "depression", after had reported increased depressive symptoms over the past 6 months. Pt did endorse chronically low mood, low energy, limited motivation, difficulty falling/staying asleep, and difficulty concentrating. She admits to having been treated with antidepressants in the past, but not within the past few years. While patient states that her symptoms of low energy only began after her pacemaker implantation, it seems her has been concerned about her poor energy for longer than this. Pt does feel that medications to treat her depressive symptoms would be helpful at this time. When considering possible antidepressive agents, it would seem appropriate to target vegetative symptoms with a more activating agent. Given history of seizure disorder, would suggest avoiding bupropion due to risk of lowering seizure threshold. Fluoxetine was discussed in detail with the patient as another option with potential to be more activating. Pt states the medication does not sound familiar to her. Risks, benefits, and potential side effects were reviewed. Given patient's history of cardiac concerns - would suggest reviewing the option with cardiology prior to initiating the medication - to ensure the choice is appropriate when considering patient's overall treatment plan. Pt did verbalize understanding of risk and is agreeable with initiation of the medication should cardiology/primary team deem appropriate to initiate. Pt did decline offer for outpatient psychiatric medication management referral as well as therapy referral. She reports preference for her family doctor to manage all prescriptions. Pt denies SI/HI, A/V hallucinations, paranoia and other signs/symptoms of acute psychosis. There is no indication for inpatient psychiatric admission at this time. Please reach out to our service with any additional questions. We appreciate the opportunity to participate in the care of this patient. Dr. Madeline Maharaj was directly involved in review and discussion of the patient's case and participated in medical decision making regarding treatment recommendations. RECOMMENDATIONS: 03/04 - Consider initiation of fluoxetine 10-20mg daily with ongoing titration as tolerated. Would suggest discussing with lamp tester and inspector to ensure there are no concerns related to potential interactions or contraindications with overall treatment goals - Other reasonable options would include sertraline 25-50mg or escitalopram 10mg: though may be less activating in nature - Pt declining referrals for outpatient psychiatric treatment - Consider to what extent limited energy may be impacted by a larger medical concern - as it reportedly coincides with implantation of pacemaker - No recommendation for inpatient psychiatric treatment Risk Factors Assessment Do You Have Access To A Gun?: No ( owns, but locked. Patient denies having access) Psych History Identifying Data 73-year-old female admitted medically on 02/21/19 after presenting to the ED with shortness of breath and cough. Psychiatric consultation was requested to evaluate patient for "depression" after reportedly raised concerns about her limited motivation and low mood for over 6 months. Information is gathered from hospital documentation and the patient herself - the combination of which is considered to be reliable. Chief Complaint "They're treating me for pneumonia." History of Present Illness Tia Mason is a 73-year-old female admitted medically on 02/21/19 after presenting to the ED with shortness of breath and cough. Pt has PMH of hypertension, hyperlipidemia, arthritis, stage 3 CKD, A fib, CHF, and s/p pacemaker placement. Nephrology and cardiology services have already been consulted to provide recommendations for patient's treatment. Psychiatric consultation was requested to evaluate patient for "depression." Progress note from 03/03/19 reviewed - had reported concerns to attending physician regarding patient's mood. He had reported concern that patient has not been active and minimally ambulatory for the past 6-7 months. Progress note from today mentions that patient's had called in with concern for patient's depression. He states she has been "mostly staying in bed, sleeping long hours, and minimally motivated to do daily activities/routine." It was reported that the patient had mentioned "that she does not wish to live any more like this." is requested evaluation to determine if medications would be helpful. Pt was seen today for psychiatric evaluation, accompanied by psychiatric nurse liaison. Pt was cooperative with assessment, stating she is feeling a bit weak today. Pt states that she is being treated for pneumonia, having been brought to the ED for SOB and cough. Pt states that she had been experiencing symptoms for several weeks before presenting to the ED for treatment. When initially asked, the patient states that she has not been experiencing any concerns related to her mood. She reported her mood was "fine" and that she had only been overwhelmed by the hospital experience, but denied anxiety or depression prior to admission. Pt said that her sleep and appetite had been find and that she had no concerns related to her mental health. Pt was asked if her or anyone close to her had expressed concern about her mood. She states, "yeah, my has been concerns. He keeps telling me to try harder." Pt states that she feels "ok" about these comments, reporting "I know he cares." Pt admits that when she is feeling well, she is able to clean her home, keep up with cooking meals, and is generally energetic. She is now admitting that she has been experiencing very poor energy since the implantation of her pacemaker. She states she has been feeling "crummy" and "I couldn't do a dag-on thing at home without getting tired." Pt admitted to low mood for several months, and reports poor appetite since being in the hospital. She does admit that she has been tired, and sleeping more often throughout the day. Pt states that although she has not been feeling well, she has not been experiencing SI. She denies history of SI or suicide attempts. Pt denies SI, HI, SIB, A/V hallucinations, paranoia, leann/hypomania, other symptoms more suggestive of a bipolar presentation, OCD, PTSD, eating disorder, and other specific psychiatric symptoms. Past Psychiatric History Previous Psych History: Reports history of treatment with antidepressant medications, but unaware of prior diagnoses. Medications previously prescribed by her PCP. Outpatient Services: Denies Previous Psych Admissions: Denies Do You Have Access To A Gun?: No ( owns, but locked. Patient denies having access) History of Previous Suicide Attempt: No Past Medication Trials: Pt unsure of prior psychiatric medications - believes she had been prescribed antidepressants in the past. Allergies Allergy/AdvReac Type Severity Reaction Status Date / Time phenytoin Allergy Intermediate HIVES AND Verified 02/21/19 04:57 MOUTH ULCERS codeine AdvReac Mild VOMITTING Verified 02/21/19 04:57 Bactrim AdvReac Unknown "FEELS Verified 10/23/18 12:53 LIKE KNIVES ARE IN MY HEAD" hydrochlorothiazide AdvReac Unknown SEE COMMENT Verified 02/21/19 04:57 sulfamethoxazole AdvReac Unknown "FEELS Verified 02/21/19 04:57 LIKE KNIVES ARE IN MY HEAD" trimethoprim AdvReac Unknown "FEELS Verified 02/21/19 04:57 LIKE KNIVES ARE IN MY HEAD" Dust Allergy Mild SINUS Uncoded 02/21/19 04:57 INFECTIONS Home Medications Home Medications Medication Instructions Recorded Confirmed Type Eliquis 5 mg PO BID 06/15/18 02/21/19 History atorvastatin 20 mg PO QAM 06/15/18 02/21/19 History cholecalciferol (vitamin D3) 1,000 unit PO QAM 06/15/18 02/21/19 History [Vitamin D3] furosemide 40 mg PO QAM 06/15/18 02/21/19 History levetiracetam 500 mg PO BID 06/15/18 02/21/19 History lisinopril 5 mg PO QAM 06/15/18 02/21/19 History omeprazole 20 mg PO QAM 06/15/18 02/21/19 History potassium 99 mg PO TID 06/15/18 02/21/19 History trazodone 50 mg PO HS 06/15/18 02/21/19 History fexofenadine [Lulu Allergy] 180 mg PO DAILY PRN 09/18/18 02/21/19 History metoprolol tartrate 50 mg PO BID #60 tab 09/21/18 02/21/19 Rx sotalol 120 mg PO BID #180 tab 09/21/18 02/21/19 Rx fluticasone propionate [Flonase 2 spray INTRANASAL DAILY 10/23/18 02/21/19 History Allergy Relief] brinzolamide-brimonidine 1 drp OPB BID 02/21/19 02/21/19 History cephalexin 500 mg PO QID 02/21/19 02/21/19 History furosemide 40 mg PO 2XWK 02/21/19 02/21/19 History prednisone 10 mg PO DAILY 02/21/19 02/21/19 History amlodipine [Norvasc] 5 mg PO BID 30 Days #60 tab 03/03/19 Rx hydralazine 12.5 mg PO BID #30 tab 03/03/19 Rx warfarin [Coumadin] 2.5 mg PO DAILY 30 Days #30 tab 03/03/19 Rx Family History Pt believes her brother had been diagnosed with bipolar disorder, but denies other known mental health conditions. Daughter suffered from alcohol abuse. Substance Abuse History Pt denies regular use of tobacco, alcohol, or illicit substances. 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 Status: Retired Marital Status: (to of 33 years) Number Of Children: 3 adult children, daughter 2 yrs ago after failed liver transplant Beliefs That Will Affect Care: None History of Legal Problems: Denies Psychological Trauma History Comment: Denies Patient History Medical History Atrial fibrillation (Chronic) ON ELIQUIS Chronic sinusitis (Chronic) GERD (gastroesophageal reflux disease) (Chronic) Glaucoma (Chronic) Hyperlipidemia (Chronic) Hypertension (Chronic) Neuropathy (Chronic) Osteoarthritis (Chronic) Seizure disorder (Chronic) single episode in 2005 Valvular heart disease (Chronic) MILD AR/MR/TR PER 07/2018 ECHO Surgical History History of bilateral tubal ligation (Chronic) History of cataract surgery (Chronic) B/L History of cholecystectomy (Chronic) History of dilatation and curettage (Chronic) History of tonsillectomy (Chronic) History of tooth extraction (Chronic) History of total shoulder replacement (Chronic) RIGHT REVERSE TOTAL SHOULDER S/P correction of deviated nasal septum (Chronic) S/P placement of cardiac pacemaker (Chronic) 09/18/18 Family History Other Breast cancer Social History Preferred Language: Upper Sorbian Communication Ability: Effective Visual Impairment: No Limitations Hearing Ability: Normal Inspector Dials Required: No Beliefs That Will Affect Care: None marital status: Current Living Situation: Spouse current occupational status: retired Other Information That Helps Us Care for You: No Feels Safe at Home: Yes Safety Concerns: Feels Safe At This Time Smoking Status: Former smoker Tobacco Type: cigarettes ; packs per day: 0.5 ; Cigarettes Per Day: Smoked ~1/2 ppd x ~15 years (unsure) ; Do You Dip or Chew Tobacco: No ; Second Hand Exposure: No ; Tobacco Cessation Education Requested by Patient: No Hx Alcohol Use: No Hx Substance Use: No Childhood Exposure to Second-Hand Smoke: No Physical Exam Psychiatric: Orientation: alert, oriented x 3 (thought date was 03/03/19) and cooperative (and pleasant) Apperance: appropriately dressed (wearing hospital gown), appropriately groomed and appeared stated age Eye Contact: good eye contact Motor Behavior: no abnormal motor movements (observed while laying in bed) Speech: normal rate/rhythm/volume of speech Affect: + depressed affect and mood congruent with affect Mood: + depressed mood ("A little lower the past couple months" and "haven't had any energy lately") Thought Process: goal directed thought process, clear/coherent thought process and thought association intact Thought Content: reality based without delusions; no hopelessness Suicidal Thoughts: denies suicidal thoughts, denies suicidal plan and denies suicidal intent Homicidal Thoughts: denies homicidal thoughts Hallucinations: no auditory hallucinations and no visual hallucinations Cognition: remote memory grossly intact, attention grossly intact and language grossly intact Insight: + fair insight Judgement: + fair judgement Vital Signs (Past 24 Hours): Last Vital Signs Temp 36.5 C 03/04/19 15:50 Pulse 79 03/04/19 15:50 Resp 18 03/04/19 15:50 BP 143/79 H 03/04/19 15:50 Pulse Ox 92 03/04/19 15:50 Review of Systems Constitutional: reports fatigue, low energy Cardiovascular: denied Respiratory: reports SOB with minimal exertion Gastrointestinal: reports nausea, vomiting, and diarrhea today Neurological: denied Psychiatric: denies symptoms other than stated above Total of at least 10 systems reviewed, pertinent positives as above and in HPI. Results & Data Medications Administered Amlodipine Besylate (Norvasc) 5 mg PO BID ELENO Stop: 03/29/19 20:59 Last Admin: 03/04/19 07:52 Dose: 5 mg Documented by: [id number] Admin: 03/03/19 20:16 Dose: 5 mg Documented by: [id number] Admin: 03/03/19 07:54 Dose: 5 mg Documented by: [id number] Admin: 03/02/19 20:19 Dose: 5 mg Documented by: [id number] Admin: 03/02/19 07:49 Dose: 5 mg Documented by: [id number] Admin: 03/01/19 21:26 Dose: 5 mg Documented by: [id number] Admin: 03/01/19 08:27 Dose: 5 mg Documented by: [id number] Admin: 02/28/19 20:12 Dose: 5 mg Documented by: [id number] Admin: 02/28/19 08:15 Dose: 5 mg Documented by: [id number] Admin: 02/27/19 21:35 Dose: 5 mg Documented by: [id number] Brimonidine Tartrate (Alphagan 0.2%) 1 drops OPB BID ELENO Stop: 03/23/19 08:59 Last Admin: 03/04/19 07:53 Dose: 1 drops Documented by: [id number] Admin: 03/03/19 20:14 Dose: 1 drops Documented by: [id number] Admin: 03/03/19 07:54 Dose: 1 drops Documented by: [id number] Admin: 03/02/19 20:20 Dose: 1 drops Documented by: [id number] Admin: 03/02/19 07:53 Dose: 1 drops Documented by: [id number] Admin: 03/01/19 21:25 Dose: 1 drops Documented by: [id number] Admin: 03/01/19 08:26 Dose: 1 drops Documented by: [id number] Admin: 02/28/19 20:13 Dose: 1 drops Documented by: [id number] Admin: 02/28/19 08:17 Dose: 1 drops Documented by: [id number] Admin: 02/27/19 21:34 Dose: 1 drops Documented by: [id number] Admin: 02/27/19 07:50 Dose: 1 drops Documented by: [id number] Admin: 02/26/19 19:50 Dose: 1 drops Documented by: [id number] Admin: 02/26/19 07:51 Dose: 1 drops Documented by: [id number] Admin: 02/25/19 19:36 Dose: 1 drops Documented by: [id number] Admin: 02/25/19 07:55 Dose: 1 drops Documented by: [id number] Admin: 02/24/19 20:45 Dose: 1 drops Documented by: [id number] Admin: 02/24/19 07:31 Dose: 1 drops Documented by: [id number] Admin: 02/23/19 20:07 Dose: 1 drops Documented by: [id number] Admin: 02/23/19 07:56 Dose: 1 drops Documented by: [id number] Admin: 02/22/19 21:45 Dose: 1 drops Documented by: [id number] Admin: 02/22/19 07:25 Dose: 1 drops Documented by: [id number] Admin: 02/21/19 19:55 Dose: 1 drops Documented by: [id number] Admin: 02/21/19 09:51 Dose: 1 drops Documented by: [id number] Brinzolamide (Azopt) 1 drops OPB BID ELENO Stop: 03/23/19 08:59 Last Admin: 03/04/19 07:53 Dose: 1 drops Documented by: [id number] Admin: 03/03/19 20:14 Dose: 1 drops Documented by: [id number] Admin: 03/03/19 07:55 Dose: 1 drops Documented by: [id number] Admin: 03/02/19 20:21 Dose: 1 drops Documented by: [id number] Admin: 03/02/19 07:53 Dose: 1 drops Documented by: [id number] Admin: 03/01/19 21:24 Dose: 1 drops Documented by: [id number] Admin: 03/01/19 08:26 Dose: 1 drops Documented by: [id number] Admin: 02/28/19 20:13 Dose: 1 drops Documented by: [id number] Admin: 02/28/19 08:17 Dose: 1 drops Documented by: [id number] Admin: 02/27/19 21:34 Dose: 1 drops Documented by: [id number] Admin: 02/27/19 07:49 Dose: 1 drops Documented by: [id number] Admin: 02/26/19 19:50 Dose: 1 drops Documented by: [id number] Admin: 02/26/19 07:52 Dose: 1 drops Documented by: [id number] Admin: 02/25/19 19:37 Dose: 1 drops Documented by: [id number] Admin: 02/25/19 07:56 Dose: 1 drops Documented by: [id number] Admin: 02/24/19 20:45 Dose: 1 drops Documented by: [id number] Admin: 02/24/19 07:30 Dose: 1 drops Documented by: [id number] Admin: 02/23/19 20:07 Dose: 1 drops Documented by: [id number] Admin: 02/23/19 07:55 Dose: 1 drops Documented by: [id number] Admin: 02/22/19 21:46 Dose: 1 drops Documented by: [id number] Admin: 02/22/19 07:25 Dose: 1 drops Documented by: [id number] Admin: 02/21/19 19:55 Dose: 1 drops Documented by: [id number] Admin: 02/21/19 09:52 Dose: 1 drops Documented by: [id number] Fluticasone Propionate (Flonase) 2 sprays NA DAILY ELENO Stop: 03/23/19 08:59 Last Admin: 03/04/19 07:51 Dose: Not Given Documented by: [id number] Admin: 03/03/19 07:55 Dose: Not Given Documented by: [id number] Admin: 03/02/19 08:09 Dose: Not Given Documented by: [id number] Admin: 03/01/19 08:29 Dose: Not Given Documented by: [id number] Admin: 02/28/19 08:14 Dose: Not Given Documented by: [id number] Admin: 02/27/19 09:09 Dose: Not Given Documented by: [id number] Admin: 02/26/19 07:53 Dose: Not Given Documented by: [id number] Admin: 02/25/19 07:55 Dose: Not Given Documented by: [id number] Admin: 02/24/19 07:29 Dose: Not Given Documented by: [id number] Admin: 02/23/19 07:56 Dose: Not Given Documented by: [id number] Admin: 02/22/19 07:27 Dose: Not Given Documented by: [id number] Admin: 02/21/19 09:57 Dose: Not Given Documented by: [id number] Guaifenesin (Robitussin Sugar Free) 200 mg PO Q6H PRN PRN Reason: Cough Stop: 03/26/19 03:38 Last Admin: 02/27/19 07:49 Dose: 200 mg Documented by: [id number] Admin: 02/25/19 07:58 Dose: 200 mg Documented by: [id number] Admin: 02/24/19 04:14 Dose: 200 mg Documented by: [id number] Hydralazine HCl (Hydralazine Hcl) 5 mg IV Q4H PRN PRN Reason: Hypertension Stop: 03/26/19 09:25 Last Admin: 02/25/19 03:43 Dose: 5 mg Documented by: [id number] Admin: 02/24/19 15:19 Dose: 5 mg Documented by: [id number] Hydralazine HCl (Apresoline) 12.5 mg PO BID ELENO Stop: 04/02/19 20:59 Last Admin: 03/04/19 07:52 Dose: 12.5 mg Documented by: [id number] Admin: 03/03/19 20:15 Dose: 12.5 mg Documented by: [id number] Promethazine HCl 12.5 mg/ (Sodium Chloride) 50.5 mls @ 202 mls/hr IV Q6H PRN PRN Reason: Nausea And Vomiting Stop: 03/23/19 08:23 Last Infusion: 03/04/19 09:16 Dose: 0 mls/hr Documented by: [id number] Admin: 03/04/19 08:51 Dose: 202 mls/hr Documented by: [id number] Infusion: 02/24/19 08:41 Dose: 0 mls/hr Documented by: [id number] Admin: 02/24/19 08:19 Dose: 202 mls/hr Documented by: [id number] Levetiracetam (Keppra) 500 mg PO BID ELENO Stop: 03/23/19 08:59 Last Admin: 03/04/19 07:52 Dose: 500 mg Documented by: [id number] Admin: 03/03/19 20:16 Dose: 500 mg Documented by: [id number] Admin: 03/03/19 07:54 Dose: 500 mg Documented by: [id number] Admin: 03/02/19 20:19 Dose: 500 mg Documented by: [id number] Admin: 03/02/19 07:52 Dose: 500 mg Documented by: [id number] Admin: 03/01/19 21:26 Dose: 500 mg Documented by: [id number] Admin: 03/01/19 08:28 Dose: 500 mg Documented by: [id number] Admin: 02/28/19 20:11 Dose: 500 mg Documented by: [id number] Admin: 02/28/19 08:15 Dose: 500 mg Documented by: [id number] Admin: 02/27/19 21:35 Dose: 500 mg Documented by: [id number] Admin: 02/27/19 07:48 Dose: 500 mg Documented by: [id number] Admin: 02/26/19 19:52 Dose: 500 mg Documented by: [id number] Admin: 02/26/19 07:50 Dose: 500 mg Documented by: [id number] Admin: 02/25/19 19:38 Dose: 500 mg Documented by: [id number] Admin: 02/25/19 07:54 Dose: 500 mg Documented by: [id number] Admin: 02/24/19 20:43 Dose: 500 mg Documented by: [id number] Admin: 02/24/19 07:28 Dose: 500 mg Documented by: [id number] Admin: 02/23/19 20:19 Dose: 500 mg Documented by: [id number] Admin: 02/23/19 07:54 Dose: 500 mg Documented by: [id number] Admin: 02/22/19 21:42 Dose: 500 mg Documented by: [id number] Admin: 02/22/19 07:26 Dose: 500 mg Documented by: [id number] Admin: 02/21/19 19:54 Dose: 500 mg Documented by: [id number] Admin: 02/21/19 09:51 Dose: 500 mg Documented by: [id number] Metoprolol Succinate (Toprol Xl) 50 mg PO BID ELENO Stop: 04/02/19 20:59 Last Admin: 03/04/19 07:53 Dose: 50 mg Documented by: [id number] Admin: 03/03/19 20:16 Dose: 50 mg Documented by: [id number] Pantoprazole Sodium (Protonix) 40 mg PO QAM ELENO Stop: 03/23/19 08:59 Last Admin: 03/04/19 07:53 Dose: 40 mg Documented by: [id number] Admin: 03/03/19 07:54 Dose: 40 mg Documented by: [id number] Admin: 03/02/19 07:50 Dose: 40 mg Documented by: [id number] Admin: 03/01/19 08:28 Dose: 40 mg Documented by: [id number] Admin: 02/28/19 08:16 Dose: 40 mg Documented by: [id number] Admin: 02/27/19 07:48 Dose: 40 mg Documented by: [id number] Admin: 02/26/19 07:49 Dose: 40 mg Documented by: [id number] Admin: 02/25/19 10:29 Dose: 40 mg Documented by: [id number] Admin: 02/24/19 07:30 Dose: 40 mg Documented by: [id number] Admin: 02/23/19 07:54 Dose: 40 mg Documented by: [id number] Admin: 02/22/19 07:26 Dose: 40 mg Documented by: [id number] Admin: 02/21/19 09:51 Dose: 40 mg Documented by: [id number] Prednisone (Prednisone) 10 mg PO DAILY ELENO Stop: 03/24/19 08:59 Last Admin: 03/04/19 07:53 Dose: 10 mg Documented by: [id number] Admin: 03/03/19 07:54 Dose: 10 mg Documented by: [id number] Admin: 03/02/19 07:52 Dose: 10 mg Documented by: [id number] Admin: 03/01/19 08:28 Dose: 10 mg Documented by: [id number] Admin: 02/28/19 08:16 Dose: 10 mg Documented by: [id number] Admin: 02/27/19 07:47 Dose: 10 mg Documented by: [id number] Admin: 02/26/19 07:50 Dose: 10 mg Documented by: [id number] Admin: 02/25/19 07:55 Dose: 10 mg Documented by: [id number] Admin: 02/24/19 07:29 Dose: 10 mg Documented by: [id number] Admin: 02/23/19 07:54 Dose: 10 mg Documented by: [id number] Admin: 02/22/19 07:26 Dose: 10 mg Documented by: [id number] Warfarin Sodium (Coumadin) 2.5 mg PO DAILY@1600 ELENO Stop: 04/01/19 15:59 Last Admin: 03/04/19 16:09 Dose: 2.5 mg Documented by: [id number] Admin: 03/03/19 15:59 Dose: 2.5 mg Documented by: [id number] Admin: 03/02/19 16:09 Dose: 2.5 mg Documented by: [id number] Coding Level of Care Code 34881 [facility] Intl Hosp Care Lvl 3
--- NOTE | 2019-03-04 17:57 | Nephrology Progress Note ---
Date of Service March 04, 2019 Assessment & Plan (1) Acute renal failure (ARF): ATN nonoliguric. baseline creatinine 0.8-1.0; presenting creatinine 2.8, stalled past few days at creat 4.3. valvular HF, vol OL, and AF w/ rates challenging to control and then obligate diuretic initially drove NADIA. has dipstick proteinuria, trace glucose, multiple epis; very concentrated urine. concern for uremia emerging w/ anorexia, suggestion of acidemia on labs; would observe for now -for now no FR -hold diuretics; when time to reintroduce should be very small doses -strict I/O -daily bmp -cont to hold acei -lanza out and tolerating -mentioned to pt may need to consider dialysis if no imprvement; pt not happy to hear about this; no dispo; will cont to discuss -cardiology changed AC to warfarin (2) HTN (hypertension): on metoprolol 50 mg bid; htn improved after procedure -OP ACEI (low dose) on hold -cont amlodipine 5 mg bid -cont prn IV hydralazine -lasix as above (3) Exertional dyspnea: still pronounced; cardiology does not believe after 02/27 AV node ablation and after demonistrating imprvement in variable valvular insufficiency that further cardiac intervention needed -have now stopped trial of low dose lasix daily 10 mg iv>> she had it last 02/26 am and would cont to hold -low threshold for pulm eval Present on Admission?: Yes Subjective seen on rounds thsi am as she returned from bathroom to bed >> markedly sob w/ this movement. ongoing n/v/ anorexia. Review of Systems Review of Systems: All systems reviewed & are unremarkable except as noted in HPI & below Physical Exam Constitutional: well developed, well nourished, + acute distress (mild respiratory distress w/ walking), + obese and cooperative (sitting in bed on ra) Eyes: EOM intact bilaterally ENMT: Ears: no external ear abnormality Nose: no external nose abnormality Mouth: + dry oral mucous membranes Neck: no nuchal rigidity Respiratory: normal respiratory effort Auscultation: + diminished lung sounds and + crackles (some end inspiratory crackles) Cardiovascular: Rate/Rhythm: regular rate and regular rhythm Heart Sounds: + murmur Extremities: no edema Gastrointestinal (Abdomen): Inspection/Auscultation: normal bowel sounds Percussion/Palpation: abdomen soft; abdomen nontender Musculoskeletal: Extremities: strength 5/5 throughout Skin: no rashes, warm and dry Neurologic: jett, fluent speech, no tremor Psychiatric: A+Ox3, euthymic affect Speech: normal rate/rhythm/volume of speech Affect: + flat affect Insight: good insight Judgement: good judgement Results & Data Vital Signs (Past 12 Hours) Vital Signs Temp Pulse Pulse Pulse Resp BP Pulse Ox 03/04/19 15:50 36.5 C 79 18 143/79 H 92 03/04/19 09:00 80 03/04/19 07:18 36.3 C L 67 18 146/81 H 96 Laboratory Results 03/04/19 05:41 03/04/19 05:41 (1) Acute renal failure (ARF) Acute renal failure type: unspecified Qualified Code(s): N17.9 - Acute kidney failure, unspecified (2) HTN (hypertension) Hypertension type: essential hypertension Qualified Code(s): I10 - Essential (primary) hypertension
--- NOTE | 2019-03-04 18:00 | Hospitalist Progress Note ---
Date of Service March 04, 2019 Assessment & Plan (1) Atrial fibrillation: Afib permanent Underwent AV junction ablation by EP cardiology Dr Adams given poor tolerance /symptomatic A. 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) pt remains in paced rhythm rate controlled at 80's pt is continued on Metoprolol 100mg BID Sotalol Dced as it is contraindicated for GFR < 40 Pt's current GFR ~12 Pt's Eliquis dose was reduced to 2.5 mg PO BID as Cr was elevated > 1.5 Cr continues to worsen ( cr 4.31 /GFR 12.1 ) not safe to continue on NOAC's with low GFR 12 eliquis dced and pt is started on Coumadin pt is started on Coumadin low dose for stroke prophylaxis :moderate to high risk for embolic CVA - calculated CHA2-VAsc Score 5( 7.2% stroke risk per year/) INR theraputic DEPRESSION : pt reports of low in energy , lack of interest of doing daily activities used to love to cook , but hardly been out of bed .chair last 6 months attributes her physical weakness, SOB , VALADEZ physical symptom has improved since AV ablation pt still remains not motivated Pt's and Sister worried about underlying depression given pt's complex medical hx choosing appropriate antidepressant to start with will be a difficult choice Psych assistance requested (2) Acute hypoxemic respiratory failure: resolved respiratory status improved to baseline no requiring supplemental 02 , in room air denies of othopnea , VALADEZ presented with progressive SOB /Hypoxia : Multifactorial : due to acute decompensation of Diastolic Heart faliure with preserve EF ( ECHO 02/17/19 : EF 60-65% ) with significant valvular heart disease ( severe Mitral and tricuspid regurgitation ) with Pulmonary HTN ( elevated Pulm pressure > 45 mmhg ( normal 8-20 mm Hg ) possible Pneumonia ( community acquired ) Chest x-ray continues to demonstrate increased interstitial markings right greater than left possible volume overload versus interstitial lung disease Completed 7 days treatment of abx with doxy and IV Zosyn Cardiology on board IV Lasix 10mg on hold due to worsening ARF ( last dose on 02/26) vol status remains stable NADIA ON CKD STAGE 3 : baseline creatinine 0.8-1.0; presenting creatinine 2.8, progressively worsening 3.8 -> 4.4 appreciate input from nephrology -diuretics has been kept on hold (last dose was on 02/26) as well as ACEI /no evidence of vol overload renal function continues to worsen -after Diuretics kept on hold /on Eliquis lower dose but may need to consider to transition to Coumadin if GFR cont to declined follow BMP - avoid NSAID's /Contrast studies vol status and electrolytes been stable plan to transfer to SNF tomorrow if Cr remains stable will need routine Lab work /BMP check in outpatient COMMUNITY ACQUIRED PNEUMONIA: Repeat CXR showed cardiomegaly with moderately improved pulmonary edema. Small pleural effusions with improved aeration of the lung bases. Completed 7 days treatment of abx with doxy and IV Zosyn- Sepsis Resolved Met criteria on admission with elevated WBC, elevated RR and lactic due to above CT chest showed patchy ground glass infiltrate lactic acid normalize Completed antibiotic treatment with doxy and Zosyn 7 days Blood cx no growth respiratory status stable CHF (congestive heart failure): Diastolic heart failure with preserved LV function , severe valvular heart disease presented with Acute decompensation of CHF with volume overload in setting of Arrythmia/Afib Status post AV bruna ablation -vol status remains stable Diuretics and ACEI on hold for acute renal failure HTN (hypertension): on metoprolol 100 mg bid -OP ACEI (low dose) on hold -cont amlodipine 5 mg on Hydralazine Elevated troponin Possible related to demand ischemia ( Type 2 NSTEMI ) due to CHF exacerbation( diastolic dysfunction ) and NADIA with creatinine 2.7 Troponin on admission 0.12 then peak to 0.28, now trending down to 0.25 EKG showed no acute ischemic changes Echo showed no wall motion abnormality no evidence of ACS ( acute coronary event /coronary thrombus or plaque rupture ) cont all cardiac meds cardiology on board CODE STATUS FULL CODE DVT PROPHYLAXIS : on coumadin Disposition Noted to have significant deconditioning, appreciate PT/OT eval recommends rehab referral made to [facility] plan to discharge pt to [facility] tomorrow insurance approval is obtained plan of care d/w pt's Paulie Richards will provide transport to SNF Subjective says does not feel motivated to do physical therapy tired to being to weak and fatigued no fever or chills no cough or SOB Physical Exam Constitutional: WD/WN, vitals as above no acute distress Eyes: PERRL, conjunctivae normal, anicteric sclerae ENMT: external ear and nose normal, oropharynx normal Neck: trachea midline, no thyromegaly Respiratory: normal respiratory effort; no respiratory distress Auscultation: no crackles and no wheezes Cardiovascular: Vessels: no JVD and no carotid bruit Extremities: normal capillary refill; no calf tenderness and no pedal edema Gastrointestinal (Abdomen): normal bowel sounds, soft, nontender, no hepatosplenomegaly Musculoskeletal: no cyanosis or clubbing, extremities motor strength 5/5 Skin: no rashes, warm and dry Neurologic: PERRL, EOMI, accommodation nl, no face palsy, no dysarthria Psychiatric: A+Ox3, euthymic affect Results & Data Vital Signs (Past 12 Hours) Vital Signs Temp Pulse Pulse Pulse Resp BP Pulse Ox 03/04/19 15:50 36.5 C 79 18 143/79 H 92 03/04/19 09:00 80 03/04/19 07:18 36.3 C L 67 18 146/81 H 96 (1) Atrial fibrillation Atrial fibrillation type: longstanding persistent Qualified Code(s): I48.11 - Longstanding persistent atrial fibrillation
[2019-03-05 06:17] LABS: Prothrombin Time 35.4 Seconds (9.0-12.0)
[2019-03-05 06:27] LABS: INR 3.8 (0.9-1.1)
[2019-03-05 07:56] LABS: Calcium 9.1 mg/dl (8.5-10.1); Creatinine Clr Calc Pharmacy 11.7 ml/min; Est GFR (African American) 10.5; Est GFR (Non-African American) 9.1
[2019-03-05] MEDS: BRINZOLAMIDE (AZOPT) OPS 10 ML BTL OPB SCH ×2 (08:16→20:10)
[2019-03-05] MEDS: FLUTICASONE PROPIONATE NA SPR 16 GM BTL SCH ×2 (08:18→08:21)
[2019-03-05] MEDS: levETIRAcetam 500 MG TAB PO SCH ×2 (08:18→20:10)
[2019-03-05] MEDS: BRIMONIDINE TARTRATE 0.2% 5ML OPB SCH ×2 (08:18→20:09)
[2019-03-05] MEDS: PANTOprazole 40 MG TAB PO SCH (08:19)
[2019-03-05] MEDS: predniSONE 10 MG TABLET PO SCH (08:19)
[2019-03-05] MEDS: METOPROLOL SUCC 50MG EXT REL TAB PO SCH ×2 (08:19→20:10)
[2019-03-05] MEDS: AMLODIPINE BESYLATE 5 MG TAB PO SCH ×2 (08:19→20:10)
--- NOTE | 2019-03-05 09:31 | Nephrology Progress Note ---
Date of Service March 05, 2019 Assessment & Plan (1) Acute renal failure (ARF): ATN nonoliguric. baseline creatinine 0.8-1.0; presenting creatinine 2.8, stalled past few days at creat 4.3 adn then today up to 4.5. valvular HF, vol OL, and AF w/ rates challenging to control and then obligate diuretic initially drove NADIA; however these have all been addressed/held/ or improved for 4-6 days or more. has dipstick proteinuria, trace glucose, multiple epis; very concentrated urine on presentation. concern for uremia emerging w/ anorexia, increasing bun, worsening acidemia on labs; would observe for now -for now no FR -hold diuretics; when / if time to reintroduce should be very small doses -strict I/O<reinforced need for this -daily bmp -cont to hold acei -lanza out and tolerating -ongoing concern she may need dialysis> have discussed w/ pt and she "would do if I had to." will d/w if I can reach him and have low threshold to consult dr johnson for tdc -repeat renal u/s, CXR, uacm, prot/creat -cardiology changed AC to warfarin (2) HTN (hypertension): on metoprolol 50 mg bid; htn improved after procedure -OP ACEI (low dose) on hold -cont amlodipine 5 mg bid -cont prn IV hydralazine -lasix as above (3) Exertional dyspnea: still pronounced; cardiology does not believe after 02/27 AV node ablation and after demonistrating imprvement in variable valvular insufficiency that fur ther cardiac intervention needed -have now stopped trial of low dose lasix daily 10 mg iv>> she had it last 11 am and would cont to hold -low threshold for pulm eval -cxr as above Subjective c/o ongoing N, poor po. no sob at rest; does not feel wheezing; denies voiding issues / sx or edema. no palpitations Review of Systems Constitutional: + weakness; no fatigue Respiratory: + dyspnea (marked w/ exertion); no cough Cardiovascular: no edema Gastrointestinal: + early satiety and + nausea Genitourinary: no dysuria, no urinary frequency and no urinary hesitancy Endocrine: + fatigue Physical Exam Constitutional: well developed, well nourished, + obese and cooperative (sitting in bed on ra); no acute distress (not sob lying in bed flat on ra) Eyes: EOM intact bilaterally ENMT: Ears: no external ear abnormality Nose: no external nose abnormality Mouth: + dry oral mucous membranes Neck: no nuchal rigidity Respiratory: normal respiratory effort Auscultation: + diminished lung sounds and + wheezes; no crackles Cardiovascular: Rate/Rhythm: regular rate and regular rhythm Heart Sounds: + murmur Extremities: no edema Gastrointestinal (Abdomen): Inspection/Auscultation: normal bowel sounds Percussion/Palpation: abdomen soft; abdomen nontender Musculoskeletal: Extremities: strength 5/5 throughout Skin: no rashes, warm and dry Psychiatric: A+Ox3, euthymic affect Speech: normal rate/rhythm/volume of speech Affect: + flat affect Insight: good insight Judgement: good judgement Results & Data Vital Signs (Past 12 Hours) Vital Signs Temp Pulse Pulse Resp BP BP Pulse Ox 03/05/19 07:24 36.4 C L 77 18 121/76 91 03/05/19 07:19 80 03/05/19 04:59 36.4 C L 82 18 139/81 97 03/05/19 01:55 80 03/04/19 23:00 36.4 C L 66 22 119/56 L 97 Laboratory Results 03/04/19 05:41 03/05/19 05:37 (1) Acute renal failure (ARF) Acute renal failure type: unspecified Qualified Code(s): N17.9 - Acute kidney failure, unspecified (2) HTN (hypertension) Hypertension type: essential hypertension Qualified Code(s): I10 - Essential (primary) hypertension
--- NOTE | 2019-03-05 10:47 | XRay Report ---
XR chest 2V PA/lateral CLINICAL HISTORY: f/u pl effusions; pt sob dyspnea COMPARISON STUDY: 03/01/2019 FINDINGS: Mild stable cardiomegaly. Bipolar cardiac pacemaker unchanged in appearance. Posterior pleural effusion considered unchanged. Slight blunting right lateral costophrenic angle perhaps minimally increased. Unchanged/slightly improved prominence of pulmonary vasculature. IMPRESSION: 1. Slightly improved components of congestive failure/pulmonary edema. 2. Unchanged trace and/or minimal pleural effusions. The above report was generated using voice recognition software. It may contain grammatical, syntax or spelling errors. Electronically signed by: Kushal Orlando M.D. 03/05/2019 10:46 AM
--- NOTE | 2019-03-05 10:49 | Ultrasound Report ---
US renal/blad retro comp HISTORY: Renal insufficiency worsening unexplained renal failure COMPARISON: None. FINDINGS: Right kidney: Maximum dimension 9.1 cm. No evidence for hydronephrosis. Mild cortical thinning with s light increase in cortical echogenicity Left kidney: Maximum dimension 9.7 cm. No evidence for hydronephrosis. Cortical thinning and increas ed cortical echogenicity consistent with nonobstructive renal insufficiency. Bladder: No bladder wall thickening. The bilateral ureteral jets were poorly seen.. IMPRESSION: 1. No evidence for hydronephrosis. 2. Mild to moderate bilateral renal cortical thinning and cortical scarring consistent with nonobstru ctive renal insufficiency. The above report was generated using voice recognition software. It may contain grammatical, syntax or spelling errors. Electronically signed by: Kushal Orlando M.D. 03/05/2019 10:47 AM
--- NOTE | 2019-03-05 16:35 | Hospitalist Progress Note ---
Date of Service March 05, 2019 Assessment & Plan (1) Atrial fibrillation: Afib permanent Underwent AV junction ablation by EP cardiology Dr Adams given poor tolerance /symptomatic A. 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) pt remains in paced rhythm rate controlled at 80's pt is continued on Metoprolol 100mg BID Sotalol Dced as it is contraindicated for GFR < 40 Pt's current GFR ~12 Pt's Eliquis dose was reduced to 2.5 mg PO BID as Cr was elevated > 1.5 Cr continues to worsen ( cr 4.31 /GFR 12.1 ) not safe to continue on NOAC's with low GFR 12 eliquis dced and pt is started on Coumadin pt is started on Coumadin low dose for stroke prophylaxis :moderate to high risk for embolic CVA - calculated CHA2-VAsc Score 5( 7.2% stroke risk per year/) hold coumadin today as INR elevated DEPRESSION : pt reports of low in energy , lack of interest of doing daily activities used to love to cook , but hardly been out of bed .chair last 6 months attributes her physical weakness, SOB , VALADEZ physical symptom has improved since AV ablation pt still remains not motivated Pt's and Sister worried about underlying depression given pt's complex medical hx choosing appropriate antidepressant to start with will be a difficult choice Psych consulted , appreciate input (2) Acute hypoxemic respiratory failure: resolved respiratory status improved to baseline no requiring supplemental 02 , in room air denies of othopnea , VALADEZ presented with progressive SOB /Hypoxia : Multifactorial : due to acute decompensation of Diastolic Heart faliure with preserve EF ( ECHO 02/17/19 : EF 60-65% ) with significant valvular heart disease ( severe Mitral and tricuspid regurgitation ) with Pulmonary HTN ( elevated Pulm pressure > 45 mmhg ( normal 8-20 mm Hg ) possible Pneumonia ( community acquired ) Chest x-ray continues to demonstrate increased interstitial markings right greater than left possible volume overload versus interstitial lung disease Completed 7 days treatment of abx with doxy and IV Zosyn Cardiology on board IV Lasix 10mg on hold due to worsening ARF ( last dose on 02/26) vol status remains stable NADIA ON CKD STAGE 3 : baseline creatinine 0.8-1.0; presenting creatinine 2.8, progressively worsening 3.8 -> 4.4 appreciate input from nephrology -diuretics has been kept on hold (last dose was on 02/26) as well as ACEI /no evidence of vol overload renal function continues to worsen -after Diuretics kept on hold /on Eliquis lower dose but may need to consider to transition to Coumadin if GFR cont to declined follow BMP - avoid NSAID's /Contrast studies renal function continues to worsen plan for possible dialysis per Nephrology pt and family is agreeable COMMUNITY ACQUIRED PNEUMONIA: Repeat CXR showed cardiomegaly with moderately improved pulmonary edema. Small pleural effusions with improved aeration of the lung bases. Completed 7 days treatment of abx with doxy and IV Zosyn- Sepsis Resolved Met criteria on admission with elevated WBC, elevated RR and lactic due to above CT chest showed patchy ground glass infiltrate lactic acid normalize Completed antibiotic treatment with doxy and Zosyn 7 days Blood cx no growth respiratory status stable CHF (congestive heart failure): Diastolic heart failure with preserved LV function , severe valvular heart disease presented with Acute decompensation of CHF with volume overload in setting of Arrythmia/Afib Status post AV bruna ablation -vol status remains stable Diuretics and ACEI on hold for acute renal failure HTN (hypertension): on metoprolol 100 mg bid -OP ACEI (low dose) on hold -cont amlodipine 5 mg on Hydralazine Elevated troponin Possible related to demand ischemia ( Type 2 NSTEMI ) due to CHF exacerbation( diastolic dysfunction ) and NADIA with creatinine 2.7 Troponin on admission 0.12 then peak to 0.28, now trending down to 0.25 EKG showed no acute ischemic changes Echo showed no wall motion abnormality no evidence of ACS ( acute coronary event /coronary thrombus or plaque rupture ) cont all cardiac meds cardiology on board CODE STATUS FULL CODE DVT PROPHYLAXIS : on coumadin Disposition Noted to have significant deconditioning, appreciate PT/OT eval recommends rehab referral made to [facility] transfer to rehab for worsening of kidney function and possible need for dialysis Subjective continues to feel tired and weak episodes of nausea no fever or chills Nephrology discussed the option for possible dialysis if indicated initially pt was reluctant but after talking with her , willing to go for" what needed to get better " Physical Exam Constitutional: WD/WN, vitals as above no acute distress Eyes: PERRL, conjunctivae normal, anicteric sclerae ENMT: external ear and nose normal, oropharynx normal Neck: trachea midline, no thyromegaly Respiratory: normal respiratory effort; no respiratory distress Auscultation: no crackles and no wheezes Cardiovascular: Vessels: no JVD and no carotid bruit Extremities: normal capillary refill; no calf tenderness and no pedal edema Gastrointestinal (Abdomen): normal bowel sounds, soft, nontender, no hepatosplenomegaly Musculoskeletal: no cyanosis or clubbing, extremities motor strength 5/5 Skin: no rashes, warm and dry Neurologic: PERRL, EOMI, accommodation nl, no face palsy, no dysarthria Psychiatric: A+Ox3, euthymic affect Results & Data Vital Signs (Past 12 Hours) Vital Signs Temp Pulse Pulse Pulse Resp BP BP 03/05/19 16:21 80 03/05/19 15:54 36.2 C L 79 18 128/79 03/05/19 11:07 82 18 130/75 03/05/19 07:24 36.4 C L 77 18 121/76 03/05/19 07:19 80 03/05/19 04:59 36.4 C L 82 18 139/81 Pulse Ox 03/05/19 16:21 03/05/19 15:54 94 03/05/19 11:07 94 03/05/19 07:24 91 03/05/19 07:19 03/05/19 04:59 97 (1) Atrial fibrillation Atrial fibrillation type: longstanding persistent Qualified Code(s): I48.11 - Longstanding persistent atrial fibrillation
[2019-03-06 06:49] LABS: INR 2.9 (0.9-1.1); Prothrombin Time 27.8 Seconds (9.0-12.0)
--- NOTE | 2019-03-06 07:06 | Nephrology Progress Note ---
Date of Service March 06, 2019 Assessment & Plan (1) Acute renal failure (ARF): ATN presume nonoliguric. baseline creatinine 0.8-1.0; presenting creatinine 2.8, stalled past few days at creat 4.3 and then today up to 4.7. valvular HF, vol OL, and AF w/ rates challenging to control and then obligate diuretic initially drove NADIA; however these have all been addressed/held/ or improved for 4-6 days or more. has dipstick proteinuria, trace glucose, multiple epis; very concentrated urine on presentation. concern for uremia emerging w/ anorexia, increasing bun, worsening acidemia on labs; would observe for now -for now no FR -hold diuretics; when / if time to reintroduce should be very small doses -strict I/O<reinforced need for this -daily bmp -cont to hold acei -alnza out and tolerating -ongoing concern she may need dialysis> have discussed w/ pt and she "would do if I had to." have d/w and will f/u pending labs and have low threshold to consult dr johnson for tdc >> dr johnson can do TDC on 03/08 -repeat renal u/s, CXR unrevealing except fo rongoing vol OL >> UACM w/ 600 mg proteinuria and budding yeast; contam specimen>> nothing to explain worsening renal failure -cardiology changed AC to warfarin (2) HTN (hypertension): on metoprolol 50 mg bid; htn improved after procedure -OP ACEI (low dose) on hold -cont amlodipine 5 mg bid -cont prn IV hydralazine -lasix as above (3) Exertional dyspnea: still pronounced; cardiology does not believe after 02/27 AV node ablation and after demonistrating imprvement in variable valvular insufficiency that further cardiac intervention needed -have now stopped trial of low dose lasix daily 10 mg iv>> she had it last 11/12 am and would cont to hold -low threshold for pulm eval though remains on RA Subjective no pain; denies worsening breathing issues; no n/v; ongoing anorexia; some anxiety about plan of care I/O hard to collect Review of Systems Review of Systems: All systems reviewed & are unremarkable except as noted in HPI & below Physical Exam Constitutional: well developed, well nourished, + obese and cooperative (lying in bed on ra); no acute distress (not sob lying in bed flat on ra) Eyes: EOM intact bilaterally ENMT: Ears: no external ear abnormality Nose: no external nose abnormality Mouth: + dry oral mucous membranes Neck: no nuchal rigidity Respiratory: normal respiratory effort Auscultation: + diminished lung sounds and + wheezes; no crackles Cardiovascular: Rate/Rhythm: regular rate and regular rhythm Heart Sounds: + murmur Extremities: no edema Gastrointestinal (Abdomen): Inspection/Auscultation: normal bowel sounds Percussion/Palpation: abdomen soft; abdomen nontender Musculoskeletal: Extremities: strength 5/5 throughout Skin: no rashes, warm and dry Psychiatric: A+Ox3, euthymic affect Speech: normal rate/rhythm/volume of speech Affect: + flat affect Insight: good insight Judgement: good judgement Results & Data Vital Signs (Past 12 Hours) Vital Signs Temp Pulse Pulse Resp BP BP Pulse Ox 03/06/19 04:21 36.5 C 81 19 136/82 97 03/06/19 00:10 80 03/05/19 23:04 36.6 C 82 20 127/79 95 03/05/19 20:00 36.2 C L 81 18 137/74 96 Laboratory Results 03/04/19 05:41 03/06/19 06:12 Diagnostic Findings cxr 1. Slightly improved components of congestive failure/pulmonary edema. 2. Unchanged trace and/or minimal pleural effusions. renal u/s 1. No evidence for hydronephrosis. 2. Mild to moderate bilateral renal cortical thinning and cortical scarring consistent with nonobstructive renal insufficiency. (1) Acute renal failure (ARF) Acute renal failure type: unspecified Qualified Code(s): N17.9 - Acute kidney failure, unspecified (2) HTN (hypertension) Hypertension type: essential hypertension Qualified Code(s): I10 - Essential (primary) hypertension
[2019-03-06] MEDS: FLUTICASONE PROPIONATE NA SPR 16 GM BTL SCH (07:29)
[2019-03-06] MEDS: BRIMONIDINE TARTRATE 0.2% 5ML OPB SCH ×2 (07:30→20:29)
[2019-03-06] MEDS: BRINZOLAMIDE (AZOPT) OPS 10 ML BTL OPB SCH ×2 (07:31→20:29)
[2019-03-06] MEDS: AMLODIPINE BESYLATE 5 MG TAB PO SCH ×2 (07:31→20:31)
[2019-03-06] MEDS: METOPROLOL SUCC 50MG EXT REL TAB PO SCH ×2 (07:32→20:31)
[2019-03-06] MEDS: predniSONE 10 MG TABLET PO SCH (07:32)
[2019-03-06] MEDS: PANTOprazole 40 MG TAB PO SCH (07:32)
[2019-03-06] MEDS: levETIRAcetam 500 MG TAB PO SCH ×2 (07:33→20:30)
[2019-03-06 07:39] LABS: BUN Creatinine Ratio 22.9 (10-20); Calcium 8.9 mg/dl (8.5-10.1); Creatinine Clr Calc Pharmacy 11.1 ml/min; Est GFR (African American) 9.9; Est GFR (Non-African American) 8.6; Potassium 4.1 mmol/L (3.5-5.1)
[2019-03-06 10:22] LABS: Appearance Urine Clear (Clear); Bacteria Urine Automated Negative (Negative); Bilirubin Urine Negative (Negative); Blood Urine Negative (Negative); Color Urine Yellow; Epithelial Cell Urine Auto >30 /lpf (0-5); Glucose Urine UA Negative (Negative); Ketones Urine Negative (Negative); Leukocyte Esterase Urine Negative (Negative); Nitrite Urine Negative (Negative); Protein Urine 1+ (Negative); Specific Gravity Urine 1.019 (1.000-1.030); Urobilinogen Urine Negative (Negative)
[2019-03-06 10:55] LABS: Creatinine Urine Random 85.3 mg/dl; Protein Creatinine Ratio Urine 0.6 (0-0.2); Total Protein Urine Random 53.4 mg/dl (0-11.9)
[2019-03-06] MEDS ORDERED: PHYTONADIONE 5 MG TAB PO ONE (18:00)
--- NOTE | 2019-03-06 18:04 | Hospitalist Progress Note ---
Date of Service March 06, 2019 Assessment & Plan (1) Atrial fibrillation: Atrial fibrillation Underwent AV junction ablation by EP cardiology Dr Adams Dual-chamber pacemaker reprogrammed(patient will be permanently pacemaker dependent) Continue metoprolol 50 mg twice daily Sotalol discontinued secondary to renal insufficiency Previously on Eliquis--renally dosed; currently discontinued secondary to advanced CKD Initiated on Coumadin INR: 2.9 Coumadin on hold for possible catheter placement We will give small dose of vitamin K to reverse INR Depression: Reports low energy,lack of interest of doing daily activities attributes to her physical weakness, SOB , VALADEZ Given pt's complex medical hx choosing appropriate antidepressant to start with will be a difficult choice Psychiatry consulted Currently not on any meds (2) Acute hypoxemic respiratory failure: Resolved Respiratory status improved to baseline Multifactorial: acute decompensation of Diastolic Heart failure with preserve EF ( ECHO 02/17/19 : EF 60-65% ) with significant valvular heart disease ( severe Mitral and tricuspid regurgitation ) with Pulmonary HTN ( elevated Pulm pressure > 45 mm hg ( normal 8-20 mm Hg ) Possible Pneumonia ( community acquired ) Chest x-ray continues to demonstrate increased interstitial markings right greater than left possible volume overload versus interstitial lung disease Completed 7 days treatment of abx with doxy and IV Zosyn Cardiology on board IV Lasix held due to worsening acute renal failure Monitor volume status Likely needs hemodialysis Vascular surgery consulted for possible catheter placement NADIA on CKD III: Likely ATN--presumed nonoliguric Baseline Cr: 0.8 -1.0 Renal USD:No evidence for hydronephrosis. Mild to moderate bilateral renal cortical thinning and cortical scarring consistent with nonobstructive renal insufficiency. Cr:4.74 Hold diuretics, ACEIs for now Avoid nephrotoxic agents Appreciate nephrology input Likely will need hemodialysis Monitor renal function Community-acquired pneumonia Sepsis Completed antibiotic course Resolved HTN: Continue current medications Monitor BP Elevated troponin Possible related to demand ischemia ( Type 2 NSTEMI ) due to CHF exacerbation( diastolic dysfunction ) and NADIA No significant troponin elevation Echo showed no wall motion abnormality Cardiology on board CODE STATUS FULL CODE DVT Px: Coumadin held for possible procedure Disposition PT OT prior to discharge Subjective Patient is seen and examined at bedside Offers no complaints Discussed with nephrology today Likely will need catheter placement for dialysis INR will be reversed with a small dose of vitamin K Denies any chest pain, shortness of breath, dizziness, nausea, abdominal pain Family at bedside Review of Systems Review of Systems: All systems reviewed & are unremarkable except as noted in HPI & below Physical Exam Physical Exam: Physical Exam: Vitals signs as noted above General Appearance:Obese, no apparent distress Head: normocephalic, Atraumatic Eyes: normal inspection, EOMI Neck: supple, Trachea midline Respiratory/Chest: Normal breath sounds, + Basal Crackles Cardiovascular: S1, S2, No murmur Abdomen/GI:Soft, Non tender, Bowel sounds present Extremities/Musculoskelatal:normal inspection, B/L LE edema Neurologic/Psych:AAOX3, grossly no focal neurological deficits Skin: normal color, warm Results & Data Vital Signs (Past 12 Hours) Vital Signs Temp Pulse Pulse Resp BP BP Pulse Ox 03/06/19 16:00 36.4 C L 81 18 142/79 H 93 03/06/19 11:16 36.7 C 61 20 121/71 95 03/06/19 08:08 36.4 C L 78 20 120/78 94 Laboratory Results [facility] 03/06/19 06:12 Sodium 136 Potassium 4.1 Chloride 107 Carbon Dioxide 17 L BUN 109 H Creatinine 4.74 H* Glucose 81 Calcium 8.9 Urine 03/06/19 Range/Units 10:13 Urine Color Yellow Urine Appearance Clear (Clear) Urine pH 5.0 (4.5-7.5) Ur Specific [address] 1.019 (1.000-1.030) Urine Protein 1+ H (Negative) Urine Glucose (UA) Negative (Negative) (1) Atrial fibrillation Atrial fibrillation type: longstanding persistent Qualified Code(s): I48.11 - Longstanding persistent atrial fibrillation
[2019-03-07 07:31] LABS: INR 1.8 (0.9-1.1); Prothrombin Time 17.9 Seconds (9.0-12.0)
[2019-03-07 08:14] LABS: BUN Creatinine Ratio 22.6 (10-20); Calcium 9.2 mg/dl (8.5-10.1); Creatinine Clr Calc Pharmacy 10.4 ml/min; Est GFR (African American) 9.1; Est GFR (Non-African American) 7.9
--- NOTE | 2019-03-07 08:35 | Nephrology Progress Note ---
Date of Service March 07, 2019 Assessment & Plan (1) Acute renal failure (ARF): ATN presume nonoliguric. baseline creatinine 0.8-1.0; presenting creatinine 2.8, stalled past few days at creat 4.3 and then today up to 5.1. valvular HF, vol OL, and AF w/ rates challenging to control and then obligate diuretic initially drove NADIA; however these have all been addressed/held/ or improved for 4-6 days or more. has dipstick proteinuria, trace glucose, multiple epis; very concentrated urine on presentation. concern for uremia w/ anorexia, increasing bun, worsening acidemia on labs; would observe for now but moving to dialysis -for now no FR -hold diuretics; when / if time to reintroduce should be very small doses -strict I/O<reinforced need for this -daily bmp -cont to hold acei -lanza out and tolerating -needs non emergent dialysis> have discussed w/ pt and she "would do if I had to." for TDC on 03/08; first tx after that on 03/08 or depending on time -repeat renal u/s, CXR unrevealing except fo rongoing vol OL >> UACM w/ 600 mg proteinuria and budding yeast; contam specimen>> nothing to explain worsening renal failure -cardiology changed AC to warfarin (2) HTN (hypertension): on metoprolol 50 mg bid; htn improved after procedure -OP ACEI (low dose) on hold -cont amlodipine 5 mg bid -cont prn IV hydralazine -lasix as above (3) Exertional dyspnea: still pronounced; cardiology does not believe after 02/27 AV node ablation and after demonistrating imprvement in variable valvular insufficiency that further cardiac intervention needed -have now stopped trial of low dose lasix daily 10 mg iv>> she had it last 11/12 am and would cont to hold -low threshold for pulm eval though remains on RA Subjective no interval events. states she feels a bit better; not sob; states n/v a bit better; no voiding concerns ; no rash; no edema Review of Systems Review of Systems: All systems reviewed & are unremarkable except as noted in HPI & below Physical Exam Constitutional: well developed, well nourished, + obese and cooperative (lying in bed on ra); no acute distress Eyes: EOM intact bilaterally ENMT: Ears: no external ear abnormality Nose: no external nose abnormality Mouth: + dry oral mucous membranes Neck: no nuchal rigidity Respiratory: normal respiratory effort Auscultation: + diminished lung sounds; no crackles and no wheezes Cardiovascular: Rate/Rhythm: regular rate and regular rhythm Heart Sounds: + murmur Extremities: no edema Gastrointestinal (Abdomen): Inspection/Auscultation: normal bowel sounds Percussion/Palpation: abdomen soft; abdomen nontender Musculoskeletal: Extremities: strength 5/5 throughout Skin: no rashes, warm and dry Neurologic: jett, fluent speech Psychiatric: A+Ox3, euthymic affect Speech: normal rate/rhythm/volume of speech Affect: + flat affect Insight: good insight Judgement: good judgement Results & Data Vital Signs (Past 12 Hours) Vital Signs Temp Pulse Pulse Resp BP BP Pulse Ox 03/07/19 07:47 36.4 C L 82 18 112/63 95 03/07/19 03:32 36.3 C L 69 16 121/74 94 03/07/19 00:00 80 03/06/19 23:37 36.3 C L 80 16 116/78 97 Laboratory Results 03/04/19 05:41 03/07/19 06:45 (1) Acute renal failure (ARF) Acute renal failure type: unspecified Qualified Code(s): N17.9 - Acute kidney failure, unspecified (2) HTN (hypertension) Hypertension type: essential hypertension Qualified Code(s): I10 - Essential (primary) hypertension
[2019-03-07] MEDS: METOPROLOL SUCC 50MG EXT REL TAB PO SCH ×2 (08:58→21:02)
[2019-03-07] MEDS: AMLODIPINE BESYLATE 5 MG TAB PO SCH ×2 (08:58→21:01)
[2019-03-07] MEDS: predniSONE 10 MG TABLET PO SCH (08:58)
[2019-03-07] MEDS: PANTOprazole 40 MG TAB PO SCH (08:58)
[2019-03-07] MEDS: levETIRAcetam 500 MG TAB PO SCH ×2 (08:58→21:02)
[2019-03-07] MEDS: BRIMONIDINE TARTRATE 0.2% 5ML OPB SCH ×2 (09:03→21:04)
[2019-03-07] MEDS: BRINZOLAMIDE (AZOPT) OPS 10 ML BTL OPB SCH ×2 (09:03→21:04)
[2019-03-07] MEDS: FLUTICASONE PROPIONATE NA SPR 16 GM BTL SCH (09:04)
[2019-03-07] MEDS: HEPARIN SOD 5,000 UNIT/0.5 ML VIAL SQ SCH ×2 (14:10→21:04)
--- NOTE | 2019-03-07 15:24 | Consultation ---
Date of Consultation March 07, 2019 Assessment & Plan (1) Acute renal failure (ARF): Pt with acute renal failure and needs permcath to start HD. Planning on placement of permcath tomorrow in OR. Pt agreeable. Patient was seen, examined, and chart reviewed. Agree with exam and treatment plan of the Vascular PA. Acute renal failure type: unspecified Qualified Code(s): N17.9 - Acute kidney failure, unspecified History of Present Illness Reason for Consultation: ESRD, need Permcath Attending Physician: Naif Skelton MD History of Present Illness 73 yo f with multiple medical problems, admitted with hypoxemic resp failure and worsening renal fxn as well as tachy christopher syndrome and a fib, seen in consultation today for permcath insertion to initiate HD. Pt admits fatigue, malaise, and VALADEZ. Denies JAMES, fever, chest pain, SOB at rest, abd pain, N/V, rest pain, claudication, other complaints. Allergies Allergy/AdvReac Type Severity Reaction Status Date / Time phenytoin Allergy Intermediate HIVES AND Verified 02/21/19 04:57 MOUTH ULCERS codeine AdvReac Mild VOMITTING Verified 02/21/19 04:57 Bactrim AdvReac Unknown "FEELS Verified 10/23/18 12:53 LIKE KNIVES ARE IN MY HEAD" hydrochlorothiazide AdvReac Unknown SEE COMMENT Verified 02/21/19 04:57 sulfamethoxazole AdvReac Unknown "FEELS Verified 02/21/19 04:57 LIKE KNIVES ARE IN MY HEAD" trimethoprim AdvReac Unknown "FEELS Verified 02/21/19 04:57 LIKE KNIVES ARE IN MY HEAD" Dust Allergy Mild SINUS Uncoded 02/21/19 04:57 INFECTIONS Home Medications Home Medications Medication Instructions Recorded Confirmed Type Eliquis 5 mg PO BID 06/15/18 02/21/19 History atorvastatin 20 mg PO QAM 06/15/18 02/21/19 History cholecalciferol (vitamin D3) 1,000 unit PO QAM 06/15/18 02/21/19 History [Vitamin D3] furosemide 40 mg PO QAM 06/15/18 02/21/19 History levetiracetam 500 mg PO BID 06/15/18 02/21/19 History lisinopril 5 mg PO QAM 06/15/18 02/21/19 History omeprazole 20 mg PO QAM 06/15/18 02/21/19 History potassium 99 mg PO TID 06/15/18 02/21/19 History trazodone 50 mg PO HS 06/15/18 02/21/19 History fexofenadine [Lulu Allergy] 180 mg PO DAILY PRN 09/18/18 02/21/19 History metoprolol tartrate 50 mg PO BID #60 tab 09/21/18 02/21/19 Rx sotalol 120 mg PO BID #180 tab 09/21/18 02/21/19 Rx fluticasone propionate [Flonase 2 spray INTRANASAL DAILY 10/23/18 02/21/19 History Allergy Relief] brinzolamide-brimonidine 1 drp OPB BID 02/21/19 02/21/19 History cephalexin 500 mg PO QID 02/21/19 02/21/19 History furosemide 40 mg PO 2XWK 02/21/19 02/21/19 History prednisone 10 mg PO DAILY 02/21/19 02/21/19 History amlodipine [Norvasc] 5 mg PO BID 30 Days #60 tab 03/03/19 Rx hydralazine 12.5 mg PO BID #30 tab 03/03/19 Rx warfarin [Coumadin] 2.5 mg PO DAILY 30 Days #30 tab 03/03/19 Rx Patient History Medical History Atrial fibrillation (Chronic) ON ELIQUIS Chronic sinusitis (Chronic) Exertional dyspnea GERD (gastroesophageal reflux disease) (Chronic) Glaucoma (Chronic) Hyperlipidemia (Chronic) Hypertension (Chronic) Neuropathy (Chronic) Osteoarthritis (Chronic) Seizure disorder (Chronic) single episode in 2005 Valvular heart disease (Chronic) MILD AR/MR/TR PER 07/2018 ECHO Surgical History History of bilateral tubal ligation (Chronic) History of cataract surgery (Chronic) B/L History of cholecystectomy (Chronic) History of dilatation and curettage (Chronic) History of tonsillectomy (Chronic) History of tooth extraction (Chronic) History of total shoulder replacement (Chronic) RIGHT REVERSE TOTAL SHOULDER S/P correction of deviated nasal septum (Chronic) S/P placement of cardiac pacemaker (Chronic) 6/4/19 Family History Other Breast cancer Social History Preferred Language: Yoruba Communication Ability: Effective Visual Impairment: No Limitations Hearing Ability: Normal [employer]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: No Beliefs That Will Affect Care: None marital status: Current Living Situation: Spouse current occupational status: retired Other Information That Helps Us Care for You: No Feels Safe at Home: Yes Safety Concerns: Feels Safe At This Time Smoking Status: Former smoker Tobacco Type: cigarettes ; packs per day: 0.5 ; Cigarettes Per Day: Smoked ~1/2 ppd x ~15 years (unsure) ; Do You Dip or Chew Tobacco: No ; Second Hand Exposure: No ; Tobacco Cessation Education Requested by Patient: No Hx Alcohol Use: No Hx Substance Use: No Childhood Exposure to Second-Hand Smoke: No Review of Systems Review of Systems: All systems reviewed & are unremarkable except as noted in HPI & below Physical Exam Constitutional: WD/WN, vitals as above + obese, cooperative and comfortable; not in distress and not combative Eyes: PERRL, conjunctivae normal, anicteric sclerae ENMT: external ear and nose normal, oropharynx normal Ears: no hearing impairment Neck: trachea midline Respiratory: normal respiratory effort and able to speak in complete sentences Auscultation: lungs clear to auscultation bilaterally and + diminished lung sounds Cardiovascular: Rate/Rhythm: + irregularly irregular Vessels: femoral pulses present, posterior tibial pulses present, dorsalis pedis pulses present, brachial pulses present and radial pulses present; no carotid bruit and + abnormal peripheral pulses Extremities: normal capillary refill and + edema Gastrointestinal (Abdomen): normal bowel sounds, soft, nontender, no hepatosplenomegaly Musculoskeletal: no cyanosis or clubbing, extremities motor strength 5/5 Skin: no rashes, warm and dry Neurologic: awake; no focal motor deficits and not confused Psychiatric: A+Ox3, euthymic affect Results & Data Vital Signs (Past 12 Hours) Vital Signs Temp Pulse Resp BP BP Pulse Ox 03/07/19 11:56 36.6 C 81 18 104/63 92 03/07/19 07:47 36.4 C L 82 18 112/63 95 03/07/19 03:32 36.3 C L 69 16 121/74 94
--- NOTE | 2019-03-07 17:54 | Hospitalist Progress Note ---
Date of Service March 07, 2019 Assessment & Plan (1) Atrial fibrillation: Atrial fibrillation Underwent AV junction ablation by EP cardiology Dr Adams Dual-chamber pacemaker reprogrammed (patient will be permanently pacemaker dependent) Continue metoprolol 50 mg twice daily Sotalol discontinued secondary to renal insufficiency Previously on Eliquis--renally dosed; currently discontinued secondary to advanced CKD Transitioned to Coumadin INR: 1.8 Coumadin on hold for possible catheter placement tomorrow Heparin SQ for now Depression: Reports low energy,lack of interest of doing daily activities attributes to her physical weakness, SOB , VALADEZ Given pt's complex medical hx choosing appropriate antidepressant to start with will be a difficult choice Psychiatry consulted Currently not on any meds Denies any suicidal thoughts (2) Acute hypoxemic respiratory failure: Resolved Respiratory status improved to baseline Multifactorial: acute decompensation of Diastolic Heart failure with preserve EF ( ECHO 02/17/19 : EF 60-65% ) with significant valvular heart disease ( severe Mitral and tricuspid regurgitation ) with Pulmonary HTN ( elevated Pulm pressure > 45 mm hg ( normal 8-20 mm Hg ) Possible Pneumonia ( community acquired ) Chest x-ray continues to demonstrate increased interstitial markings right greater than left possible volume overload versus interstitial lung disease Completed 7 days treatment of abx with doxy and IV Zosyn Cardiology on board IV Lasix held due to worsening acute renal failure Monitor volume status Needs hemodialysis for volume management Vascular surgery consulted for possible catheter placement NADIA on CKD III: Likely ATN--presumed nonoliguric Baseline Cr: 0.8 -1.0 Renal USD:No evidence for hydronephrosis. Mild to moderate bilateral renal cortical thinning and cortical scarring consistent with nonobstructive renal insufficiency. Cr:5.09 Hold diuretics, ACEIs for now Avoid nephrotoxic agents Appreciate nephrology input Needs hemodialysis Monitor renal function Community-acquired pneumonia Sepsis Completed antibiotic course Resolved HTN: Continue current medications Monitor BP Elevated troponin Possible related to demand ischemia ( Type 2 NSTEMI ) due to CHF exacerbation( diastolic dysfunction ) and NADIA No significant troponin elevation Echo showed no wall motion abnormality Cardiology on board CODE STATUS FULL CODE DVT Px: Coumadin held for possible procedure Disposition Needs Rehab placement when medically stable Subjective Patient is seen and examined at bedside No new complaints Planned for catheter placement for dialysis tomorrow INR reversed Denies any chest pain, shortness of breath, dizziness, nausea, abdominal pain NPO after midnight Review of Systems Review of Systems: All systems reviewed & are unremarkable except as noted in HPI & below Physical Exam Physical Exam: Physical Exam: Vitals signs as noted above General Appearance:Obese, no apparent distress Head: normocephalic, Atraumatic Eyes: normal inspection, EOMI Neck: supple, Trachea midline Respiratory/Chest: Normal breath sounds, CTA Cardiovascular: S1, S2, No murmur Abdomen/GI:Soft, Non tender, Bowel sounds present Extremities/Musculoskelatal:normal inspection, B/L LE edema Neurologic/Psych:AAOX3, grossly no focal neurological deficits Skin: normal color, warm Results & Data Vital Signs (Past 12 Hours) Vital Signs Temp Pulse Resp BP Pulse Ox 03/07/19 15:29 36.3 C L 81 16 129/82 95 03/07/19 11:56 36.6 C 81 18 104/63 92 03/07/19 07:47 36.4 C L 82 18 112/63 95 Laboratory Results BMP 03/07/19 03/07/19 06:45 08:36 Sodium 137 Potassium 4.1 Chloride 106 Carbon Dioxide 16 L BUN 115 H Creatinine 5.09 H* D Glucose 84 Calcium 9.2 (1) Atrial fibrillation Atrial fibrillation type: longstanding persistent Qualified Code(s): I48.11 - Longstanding persistent atrial fibrillation
[2019-03-08] MEDS ORDERED: SODIUM CHLORIDE 0.9% 1000ML 1,000 ML IV PRN (07:43)
[2019-03-08 07:57] LABS: INR 1.3 (0.9-1.1); Prothrombin Time 12.7 Seconds (9.0-12.0)
[2019-03-08] MEDS ORDERED: CEFAZOLIN 1000MG 1,000 MG/7.5 ML SYR IV ONE (08:00)
[2019-03-08] MEDS: HEPARIN SOD 5,000 UNIT/0.5 ML VIAL SQ SCH ×2 (08:05→21:31)
[2019-03-08] MEDS: AMLODIPINE BESYLATE 5 MG TAB PO SCH ×2 (08:05→20:42)
[2019-03-08] MEDS: METOPROLOL SUCC 50MG EXT REL TAB PO SCH ×2 (08:05→20:42)
[2019-03-08 08:28] LABS: BUN Creatinine Ratio 22.4 (10-20); Calcium 8.8 mg/dl (8.5-10.1); Creatinine Clr Calc Pharmacy 10.3 ml/min; Est GFR (African American) 9.2; Est GFR (Non-African American) 7.9; Phosphorus 5.8 mg/dl (2.5-4.9); Potassium 3.6 mmol/L (3.5-5.1)
[2019-03-08] MEDS: predniSONE 10 MG TABLET PO SCH (08:31)
[2019-03-08] MEDS: PANTOprazole 40 MG TAB PO SCH (08:31)
[2019-03-08] MEDS: levETIRAcetam 500 MG TAB PO SCH ×2 (08:31→20:43)
[2019-03-08] MEDS: BRINZOLAMIDE (AZOPT) OPS 10 ML BTL OPB SCH ×2 (08:33→20:45)
[2019-03-08] MEDS: FLUTICASONE PROPIONATE NA SPR 16 GM BTL SCH (08:33)
[2019-03-08] MEDS: BRIMONIDINE TARTRATE 0.2% 5ML OPB SCH ×2 (08:33→20:45)
--- NOTE | 2019-03-08 09:09 | History & Physical Bridge Note ---
Date of Service March 08, 2019 History & Physical Bridge Note Patient for permcath insertion today. I have discussed the risks options and benefits of the procedure with the patient. The patient understands the risks options and benefits and agrees to the procedure. I have examined the patient, reviewed the History & Physical and in the interval since the performance of the History & Physical I have noted the following changes of clinical significance: no changes noted
[2019-03-08] MEDS ORDERED: LIDOCAINE HCL 1% 20 ML VIAL ONE (09:17)
[2019-03-08] MEDS ORDERED: HEPARIN SOD (PORCINE) 5,000 UNITS/ML VIAL ONE (09:17)
[2019-03-08] MEDS ORDERED: fentaNYL citrate 100 MCG/2 ML VIAL ONE (09:35)
[2019-03-08] MEDS ORDERED: MIDAZOLAM HCL 1 MG/ML 2ML VIAL ONE (09:35)
--- NOTE | 2019-03-08 10:06 | Post Operative Brief Note ---
Immediate Post Op Note v1 Date of Surgery March 08, 2019 Pre & Post Diagnosis Operation Date: 02/27/19 12:00 <No data on this case meets the specified criteria> Operation Date: 03/08/19 09:10 Pre-Op Diagnosis: acute kidney injury Post-Op Diagnosis: acute kidney injury I identified the patient and participated in the time-out.: Yes Procedure Operation Date: 02/27/19 12:00 Actual Procedures p AV Node Ablation - Natalie Adams DO s Interrogation of Pacer - Natalie Adams DO Operation Date: 03/08/19 09:10 Actual Procedures p Insertion Of Perm Catheter, Right Internal Jugular Approach, Ultrasound Localization Of Right Internal Jugular Vein, Fluoroscopy For Positioning, Moderate Concious Sedation 0951 to 1013(Right) - Max Sifuentes MD Surgeon Max Sifuentes MD Wrapper Sizer MD Britney Estimated Blood Loss 5 Findings Consistent with Post-Op Diagnosis Anesthesia Type RN Sedation Complications none Disposition Accompanied Patient To Recovery: No Disposition: Recovery Room
--- NOTE | 2019-03-08 10:09 | Operative Report ---
Post Operative Report Pre & Post Diagnosis Operation Date: 02/27/19 12:00 <No data on this case meets the specified criteria> Operation Date: 03/08/19 09:10 Pre-Op Diagnosis: acute kidney injury Post-Op Diagnosis: acute kidney injury I identified the patient and participated in the time-out.: Yes Procedure Operation Date: 02/27/19 12:00 Actual Procedures p AV Node Ablation - Natalie Adams DO s Interrogation of Pacer - Natalie Adams DO Operation Date: 03/08/19 09:10 Actual Procedures p Insertion Of Perm Catheter, Right Internal Jugular Approach, Ultrasound Localization Of Right Internal Jugular Vein, Fluoroscopy For Positioning, Moderate Concious Sedation 0951 to(Right) - Max Sifuentes MD Surgeon Max Sifuentes MD Pocket Closer MD Britney Estimated Blood Loss 5 Findings Consistent with Post-Op Diagnosis Specimens none Anesthesia Type RN Sedation Complications none Disposition Accompanied Patient To Recovery: No Disposition: Recovery Room Indications 73 yo f with multiple medical problems, admitted with hypoxemic resp failure, worsening renal fxn, tachy christopher syndrome and a fib. Needs access for initiation of HD. I have discussed the risks options and benefits of the procedure with the patient. The patient understands the risks options and benefits and agrees to the procedure. Description of Procedure Patient was taken to the angio suite and placed in the supine position. The [right] side of the neck and chest wall were prepped and draped in a sterile manner. The patient was identified and a timeout performed. Local anesthesia was then administered to the appropriate areas of the neck and chest wall. Ultrasound was then used to locate the [right] internal jugular vein. The vein compressed easily, had no filing defects, and was patent. The vein was then punctured under direct ultrasound imaging. A guidewire was then passed centrally under fluoroscopic imaging. A stab wound was then made in the anterior chest wall and a [19] cm permcath was passed from the stab wound on the chest wall to the puncture site on the neck. The puncture site was then dilated till the 14Fr peel away sheath was inserted. The permcath was then inserted through the sheath to a central position in the distal superior vena cava. The peel away sheath was then removed. The catheter was then sutured in place using nylon sutures. The puncture was then closed using a 4-0 Vicryl subcuticular suture. Dermabond was used for a dressing on the puncture site. Both ports aspirated and flushed easily and were then packed with heparin. A sterile dressing was applied to the catheter. The patient left the angio suite in good condition and tolerated the procedure well. Dr. Sifuentes was present and scrubbed for the entire procedure. I attest to the content of the Intraoperative Record and any orders documented therein. Any exceptions are noted below.
--- NOTE | 2019-03-08 10:17 | Post Anesthesia Assessment ---
Date of Service March 08, 2019 Post Sedation Assessment Vital Signs Temp Pulse Pulse Resp BP BP Pulse Ox 03/08/19 10:13 80 14 152/84 H 97 03/08/19 10:08 80 16 152/84 H 95 03/08/19 10:05 80 16 149/82 H 100 03/08/19 10:00 80 12 158/72 H 100 03/08/19 09:55 80 16 128/83 100 03/08/19 09:51 80 26 H 128/101 H 100 03/08/19 09:45 80 21 148/67 H 100 03/08/19 09:38 78 24 147/67 H 100 03/08/19 09:14 36.4 C L 80 20 190/71 H 91 03/08/19 07:55 36.4 C L 80 20 123/74 95 03/08/19 04:00 36.3 C L 82 18 135/78 94 03/08/19 00:01 36.6 C 80 16 115/72 95 03/07/19 23:59 80 03/07/19 21:10 80 118/76 03/07/19 20:00 36.2 C L 80 18 108/73 94 03/07/19 15:29 36.3 C L 81 16 129/82 95 03/07/19 11:56 36.6 C 81 18 104/63 92 Recovery Score Activity: Moves 4 extremities Respiration: Deep Breath/Cough Circulation: +/-20% PreAnes Value Consciousness: Fully Awake Oxygen Saturation: > 92% On Room Air Post Anesthesia Score: 10 Discharge Sedation Level of Care: Fast Track Phase II Post Sedation Plan On clinical assessment, the patient appears to have tolerated the sedation without complications. Patient is recovering as anticipated. Patient will continue to be monitored by nursing and may be discharged when sedation discharge criteria are met per below protocol. Upon Completions of procedure up to 15 minutes continue every 5 minute vital signs and the P.A.R. score; then discharge to a Phase I or Fast Track to Phase II per the following guidelines: * Discharge Patient to appropriate Phase II area if PAR is 8 or greater or return to pre- procedure baseline. The post - procedure orders will be as directed. * If PAR score is less than 8 or not return to pre-procedure baseline then patient will follow Phase I monitoring till PAR is reached for Phase II. The Phase I may be done in procedure room or may call to secure a Phase I area. * If naloxone or flumazenil are used for reversal, hold in Phase I for continued monitoring from when last reversal dose was given for a minimum of 60 minutes or longer pending the nurse and/or physician discretion of patient condition before discharge to Phase II. Please call the Sedation Physician to re-evaluate and complete post-note for discharge to Phase II area. Do NOT discharge from procedure sedation or Phase 1 until post- sedation evaluation note is complete by procedure /sedation MD Sedation Discharge Instructions to be given to the patient at discharge to home.
[2019-03-08 12:42] LABS: Hepatitis B Surface Ab Quant < 3.10 mIU/mL (>or=10mIU/mL Immune); Hepatitis B Surface Antibody Non-Immune
[2019-03-08 12:53] LABS: Hepatitis B Surface Antigen Neg (Neg)
--- NOTE | 2019-03-08 14:44 | Nephrology Progress Note ---
Date of Service March 08, 2019 Assessment & Plan (1) Acute renal failure (ARF): ATN presume nonoliguric. baseline creatinine 0.8-1.0; presenting creatinine 2.8, stalled past few days at creat 4.3 and then today up to 5.1. valvular HF, vol OL, and AF w/ rates challenging to control and then obligate diuretic initially drove NADIA; however these have all been addressed/held/ or improved for 4-6 days or more. has dipstick proteinuria, trace glucose, multiple epis; very concentrated urine on presentation. concern for uremia w/ anorexia, increasing bun, worsening acidemia on labs -for now no FR -hold diuretics; when / if time to reintroduce should be very small doses -strict I/O<reinforced need for this -daily bmp -cont to hold acei -no need for lanza -needs non emergent dialysis> have discussed w/ pt and she "would do if I had to." for TDC on 03/08; first tx after that on 03/08 ; plan next tx on 03/09; thereafter she could go to rehab or home; OP unit would eventually be [facility] if she needs by time of rehab d/c -repeat renal u/s, CXR unrevealing except for ongoing vol OL >> UACM w/ 600 mg proteinuria and budding yeast; contam specimen>> nothing to explain worsening renal failure -cardiology changed AC to warfarin (2) HTN (hypertension): on metoprolol 50 mg bid; htn improved after procedure -OP ACEI (low dose) on hold -cont amlodipine 5 mg bid -cont prn IV hydralazine -lasix as above (3) Exertional dyspnea: still pronounced; cardiology does not believe after 02/27 AV node ablation and after demonistrating imprvement in variable valvular insufficiency that furt her cardiac intervention needed -have now stopped trial of low dose lasix daily 10 mg iv>> she had it last 02/26 am and would cont to hold Subjective seen on rounds this am; slept better; still some N; not sob as long as does not move; remains willing to start HD; denies voiding complaints Review of Systems Review of Systems: All systems reviewed & are unremarkable except as noted in HPI & below Physical Exam Constitutional: well developed, well nourished, + obese and cooperative (lying in bed on ra); no acute distress Eyes: EOM intact bilaterally ENMT: Ears: no external ear abnormality Nose: no external nose abnormality Mouth: + dry oral mucous membranes Neck: no nuchal rigidity Respiratory: normal respiratory effort Auscultation: + diminished lung sounds and + rhonchi; no crackles and no wheezes Cardiovascular: Rate/Rhythm: regular rate and regular rhythm Heart Sounds: + murmur Extremities: no edema Gastrointestinal (Abdomen): Inspection/Auscultation: normal bowel sounds Percussion/Palpation: abdomen soft; abdomen nontender Musculoskeletal: Extremities: strength 5/5 throughout Skin: no rashes, warm and dry Neurologic: jett, fluent speech, no tremor Psychiatric: A+Ox3, euthymic affect Speech: normal rate/rhythm/volume of speech Affect: + flat affect Insight: good insight Judgement: good reymundo gement Results & Data Vital Signs (Past 12 Hours) Vital Signs Temp Pulse Pulse Resp BP BP Pulse Ox 03/08/19 13:30 36.5 C 78 18 90 03/08/19 12:06 36.8 C 80 20 90 03/08/19 11:48 36.6 C 80 20 130/66 92 03/08/19 11:03 36.6 C 96 H 18 113/68 90 03/08/19 10:13 80 14 152/84 H 97 03/08/19 10:08 80 16 152/84 H 95 03/08/19 10:05 80 16 149/82 H 100 03/08/19 10:00 80 12 158/72 H 100 03/08/19 09:55 80 16 128/83 100 03/08/19 09:51 80 26 H 128/101 H 100 03/08/19 09:45 80 21 148/67 H 100 03/08/19 09:38 78 24 147/67 H 100 03/08/19 09:14 36.4 C L 80 20 190/71 H 91 03/08/19 07:55 36.4 C L 80 20 123/74 95 03/08/19 04:00 36.3 C L 82 18 135/78 94 Laboratory Results 03/04/19 05:41 03/08/19 07:18 (1) Acute renal failure (ARF) Acute renal failure type: unspecified Qualified Code(s): N17.9 - Acute kidney failure, unspecified (2) HTN (hypertension) Hypertension type: essential hypertension Qualified Code(s): I10 - Essential (primary) hypertension
--- NOTE | 2019-03-08 16:53 | Hospitalist Progress Note ---
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) Continue metoprolol 50 mg twice daily Sotalol discontinued secondary to renal insufficiency Previously on Eliquis--renally dosed; currently discontinued secondary to advanced CKD Transitioned to Coumadin due to renal insufficiency INR: 1.3 Resume Coumadin today Heparin SQ until INR is therapeutic Depression: Reports low energy,lack of interest of doing daily activities attributes to her physical weakness, SOB , VALADEZ Given pt's complex medical hx choosing appropriate antidepressant to start with will be a difficult choice Psychiatry consulted Currently not on any meds Denies any suicidal thoughts (2) Acute hypoxemic respiratory failure: Resolved Respiratory status improved to baseline Multifactorial: acute decompensation of Diastolic Heart failure with preserve EF ( ECHO 02/17/19 : EF 60-65% ) with significant valvular heart disease ( severe Mitral and tricuspid regurgitation ) with Pulmonary HTN ( elevated Pulm pressure > 45 mm hg ( normal 8-20 mm Hg ) Possible Pneumonia ( community acquired ) Chest x-ray continues to demonstrate increased interstitial markings right greater than left possible volume overload versus interstitial lung disease Completed 7 days treatment of abx with doxy and IV Zosyn Cardiology on board IV Lasix held due to worsening acute renal failure Monitor volume status Volume managed through dialysis Appreciate vascular surgery help NADIA on CKD III: Likely ATN--presumed nonoliguric Baseline Cr: 0.8 -1.0 Renal USD:No evidence for hydronephrosis. Mild to moderate bilateral renal cortical thinning and cortical scarring consistent with nonobstructive renal insufficiency. Cr:5.0 Hold diuretics, ACEIs for now Avoid nephrotoxic agents Appreciate nephrology input Plan for dialysis today Needs outpatient dialysis set up prior to discharge Monitor renal function Community-acquired pneumonia Sepsis Completed antibiotic course Resolved HTN: Continue current medications Monitor BP Elevated troponin Possible related to demand ischemia ( Type 2 NSTEMI ) due to CHF exacerbation( diastolic dysfunction ) and NADIA No significant troponin elevation Echo showed no wall motion abnormality Cardiology on board CODE STATUS FULL CODE DVT Px: Coumadin Heparin SQ until INR is therapeutic Disposition Needs Rehab placement when medically stable Subjective Patient is seen and examined at bedside Patient had permanent catheter placement today Plan for first dialysis treatment today Mild soreness at the site of the catheter No other complaints Denies any chest pain, shortness of breath, dizziness, nausea, abdominal pain Review of Systems Review of Systems: All systems reviewed & are unremarkable except as noted in HPI & below Physical Exam Physical Exam: Physical Exam: Vitals signs as noted above General Appearance:Obese, no apparent distress Head: normocephalic, Atraumatic Eyes: normal inspection, EOMI Neck: supple, Trachea midline Respiratory/Chest: Normal breath sounds, CTA Cardiovascular: S1, S2, No murmur Abdomen/GI:Soft, Non tender, Bowel sounds present Extremities/Musculoskelatal:normal inspection, B/L LE edema Neurologic/Psych:AAOX3, grossly no focal neurological deficits Skin: normal color, warm Results & Data Vital Signs (Past 12 Hours) Vital Signs Temp Pulse Pulse Pulse Resp BP BP 03/08/19 16:00 80 129/72 03/08/19 15:40 80 139/76 03/08/19 15:20 80 158/78 H 03/08/19 15:00 36.6 C 80 03/08/19 13:30 36.5 C 78 18 03/08/19 12:06 36.8 C 80 20 03/08/19 11:48 36.6 C 80 20 130/66 03/08/19 11:03 36.6 C 96 H 18 113/68 03/08/19 10:13 80 14 152/84 H 03/08/19 10:08 80 16 152/84 H 03/08/19 10:05 80 16 149/82 H 03/08/19 10:00 80 12 158/72 H 03/08/19 09:55 80 16 128/83 03/08/19 09:51 80 26 H 128/101 H 03/08/19 09:45 80 21 148/67 H 03/08/19 09:38 78 24 147/67 H 03/08/19 09:14 36.4 C L 80 20 190/71 H 03/08/19 07:55 36.4 C L 80 20 123/74 Pulse Ox 03/08/19 16:00 03/08/19 15:40 03/08/19 15:20 03/08/19 15:00 03/08/19 13:30 90 03/08/19 12:06 90 03/08/19 11:48 92 03/08/19 11:03 90 03/08/19 10:13 97 03/08/19 10:08 95 03/08/19 10:05 100 03/08/19 10:00 100 03/08/19 09:55 100 03/08/19 09:51 100 03/08/19 09:45 100 03/08/19 09:38 100 03/08/19 09:14 91 03/08/19 07:55 95 Laboratory Results [facility] 03/08/19 07:18 Sodium 136 Potassium 3.6 Chloride 107 Carbon Dioxide 15 L BUN 112 H Creatinine 5.02 H* Glucose 76 Calcium 8.8 (1) Atrial fibrillation Atrial fibrillation type: longstanding persistent Qualified Code(s): I48.11 - Longstanding persistent atrial fibrillation
[2019-03-08] MEDS: WARFARIN SOD 2.5 MG TAB PO SCH (18:15)
[2019-03-08 21:55] LABS: Eosinophils # (auto) 0.01 K/uL (0-0.5); Eosinophils % (auto) 0.1 %; Hematocrit (blood only) 33.6 % (37-47); Hemoglobin 11.1 g/dL (12.0-16.0); Immature Granulocytes # (auto) 0.02 K/uL (0.00-0.02); Immature Granulocytes % (auto) 0.2 %; Lymphocytes # (auto) 0.76 K/uL (1.2-3.4); Lymphocytes % (auto) 7.6 %; Mean Corpuscular Hemoglobin 31.6 pg (25-34); Mean Corpuscular Volume 95.7 fL (80-100); Mean Platelet Volume 11.3 fL (7.4-10.4); Monocytes # (auto) 0.27 K/uL (0.11-0.59); Monocytes % (auto) 2.7 %; Neutrophils # (auto) 8.98 K/uL (1.4-6.5); Neutrophils % (auto) 89.4 %; Platelet Count 189 K/uL (130-400); RDW Coefficient of Variation 16.1 % (11.5-14.5); RDW Standard Deviation 55.4 fL (36.4-46.3); Red Blood Count 3.51 M/uL (4.2-5.4); White Blood Count 10.04 K/uL (4.8-10.8)
[2019-03-08 22:08] LABS: INR 1.2 (0.9-1.1); Prothrombin Time 12.4 Seconds (9.0-12.0)
[2019-03-09 06:38] LABS: INR 1.3 (0.9-1.1); Prothrombin Time 12.7 Seconds (9.0-12.0)
[2019-03-09 06:57] LABS: BUN Creatinine Ratio 15.7 (10-20); Calcium 8.4 mg/dl (8.5-10.1); Creatinine Clr Calc Pharmacy 13.9 ml/min; Est GFR (Non-African American) 11.2; Potassium 3.6 mmol/L (3.5-5.1)
[2019-03-09] MEDS ORDERED: HEPARIN SOD (PORCINE) 1000 UNIT/ML 10 ML VIAL IV ONE (08:07)
[2019-03-09] MEDS ORDERED: SODIUM CHLORIDE 0.9% 1000ML 1,000 ML IV PRN (08:07)
[2019-03-09] MEDS: METOPROLOL SUCC 50MG EXT REL TAB PO SCH ×2 (08:12→20:32)
[2019-03-09] MEDS: AMLODIPINE BESYLATE 5 MG TAB PO SCH ×2 (08:12→20:31)
[2019-03-09] MEDS: FLUTICASONE PROPIONATE NA SPR 16 GM BTL SCH (08:18)
[2019-03-09] MEDS: BRINZOLAMIDE (AZOPT) OPS 10 ML BTL OPB SCH ×2 (08:18→20:30)
[2019-03-09] MEDS: BRIMONIDINE TARTRATE 0.2% 5ML OPB SCH ×2 (08:18→20:30)
[2019-03-09] MEDS: predniSONE 10 MG TABLET PO SCH (08:19)
[2019-03-09] MEDS: levETIRAcetam 500 MG TAB PO SCH ×2 (08:19→20:31)
[2019-03-09] MEDS: PANTOprazole 40 MG TAB PO SCH (08:19)
--- NOTE | 2019-03-09 09:19 | Communication Note ---
Date of Service: March 09, 2019 Made aware by RN of persistent oozing from new dialysis permacath site. Hold Coumadin, heparin subcu for now. Will relay to AM provider.
[2019-03-09] MEDS: HEPARIN SOD (PORCINE) 1000 UNIT/ML 10 ML VIAL IV SCH ×2 (13:18→13:19)
--- NOTE | 2019-03-09 13:47 | Nephrology Progress Note ---
Date of Service March 09, 2019 Assessment & Plan (1) Acute renal failure (ARF): ATN presume nonoliguric. baseline creatinine 0.8-1.0; presenting creatinine 2.8, stalled past few days at creat 4.3 and then peaked at 5.1. valvular HF, vol OL, and AF w/ rates challenging to control and then obligate diuretic initially drove NADIA; however these have all been addressed/held/ or improved for 4-6 days or more and still renal function w/o imrpovement. has dipstick proteinuria, trace glucose, multiple epis; very concentrated urine on presentation. concern for uremia w/ anorexia, increasing bun, worsening acidemia on labs -for now no FR -hold diuretics; when / if time to reintroduce should be very small doses -strict I/O<reinforced need for this -daily bmp -cont to hold acei -no need for lanza -needs non emergent dialysis; unclear how long will need this. got TDC on 03/08; first tx after that on 03/08 ; for hd w/ gentle 500 mL uf today 03/09; thereafter she could go to rehab or home; OP unit would eventually be [facility] if she needs by time of rehab d/c -repeat renal u/s, CXR unrevealing except for ongoing vol OL >> UACM w/ 600 mg proteinuria and budding yeast; contam specimen>> nothing to explain worsening renal failure -cardiology changed AC to warfarin (2) HTN (hypertension): on metoprolol 50 mg bid; htn improved after procedure -OP ACEI (low dose) on hold -cont amlodipine 5 mg bid -cont prn IV hydralazine -lasix as above (3) Exertional dyspnea: still pronounced; cardiology does not believe after 02/27 AV node ablation and after demonistrating imprvement in variable valvular insufficiency that further cardiac intervention needed -have now stopped trial of low dose lasix daily 10 mg iv>> she had it last 02/26 am and would cont to hold Subjective seen on rounds this am as she was about to start dialysis second tx. states N resolved; no sob, no edema, no voiding c/o or pain. someoozing around catheter and dressing has been changed several times Review of Systems Review of Systems: All systems reviewed & are unremarkable except as noted in HPI & below Physical Exam Constitutional: well developed, well nourished, + obese and cooperative (lying in bed on ra); no acute distress Eyes: EOM intact bilaterally ENMT: Ears: no external ear abnormality Nose: no external nose abnormality Mouth: + dry oral mucous membranes Neck: no nuchal rigidity Respiratory: normal respiratory effort Auscultation: + diminished lung sounds; no crackles and no wheezes Cardiovascular: Rate/Rhythm: regular rate and regular rhythm Heart Sounds: + murmur Extremities: + edema (trace ble) Gastrointestinal (Abdomen): Inspection/Auscultation: normal bowel sounds Percussion/Palpation: abdomen soft; abdomen nontender Musculoskeletal: Extremities: strength 5/5 throughout Skin: no rashes, warm and dry Neurologic: jett, fluent speech, no tremor Psychiatric: A+Ox3, euthymic affect Speech: normal rate/rhythm/volume of speech Affect: + flat affect Insight: good insight Judgement: good judgement Results & Data Vital Signs (Past 12 Hours) Vital Signs Temp Pulse Pulse Pulse Resp BP BP 03/09/19 12:49 36.1 C L 80 140/65 03/09/19 12:33 80 140/75 03/09/19 12:20 80 135/74 03/09/19 12:00 80 132/63 03/09/19 11:40 80 133/69 03/09/19 11:20 80 133/63 03/09/19 11:09 79 127/64 03/09/19 10:40 80 132/60 03/09/19 10:20 80 125/65 03/09/19 10:00 80 120/59 L 03/09/19 09:40 80 126/63 03/09/19 09:32 36.4 C L 80 134/68 03/09/19 08:33 36.2 C L 56 L 22 03/09/19 04:52 36.5 C 83 20 140/65 Pulse Ox 03/09/19 12:49 03/09/19 12:33 03/09/19 12:20 03/09/19 12:00 03/09/19 11:40 03/09/19 11:20 03/09/19 11:09 03/09/19 10:40 03/09/19 10:20 03/09/19 10:00 03/09/19 09:40 03/09/19 09:32 03/09/19 08:33 95 03/09/19 04:52 95 Laboratory Results 03/08/19 21:37 03/09/19 06:09 (1) Acute renal failure (ARF) Acute renal failure type: unspecified Qualified Code(s): N17.9 - Acute kidney failure, unspecified (2) HTN (hypertension) Hypertension type: essential hypertension Qualified Code(s): I10 - Essential (primary) hypertension
[2019-03-09 14:15] LABS: Hematocrit (blood only) 35.5 % (37-47); Hemoglobin 11.8 g/dL (12.0-16.0)
--- NOTE | 2019-03-09 16:07 | Hospitalist Progress Note ---
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) Continue metoprolol 50 mg twice daily Sotalol discontinued secondary to renal insufficiency Previously on Eliquis--renally dosed; currently discontinued secondary to advanced CKD Transitioned to Coumadin due to renal insufficiency INR: 1.3 Continue Coumadin at lower dose due to transient oozing at dialysis catheter site Depression: Reports low energy,lack of interest of doing daily activities attributes to her physical weakness, SOB , VALADEZ Given pt's complex medical hx choosing appropriate antidepressant to start with will be a difficult choice Psychiatry consulted Currently not on any meds Denies any suicidal thoughts (2) Acute hypoxemic respiratory failure: Resolved Respiratory status improved to baseline Multifactorial: acute decompensation of Diastolic Heart failure with preserve EF ( ECHO 02/17/19 : EF 60-65% ) with significant valvular heart disease ( severe Mitral and tricuspid regurgitation ) with Pulmonary HTN ( elevated Pulm pressure > 45 mm hg ( normal 8-20 mm Hg ) Possible Pneumonia ( community acquired ) Chest x-ray continues to demonstrate increased interstitial markings right greater than left possible volume overload versus interstitial lung disease Completed 7 days treatment of abx with doxy and IV Zosyn Cardiology on board IV Lasix held due to worsening acute renal failure Monitor volume status Volume managed through dialysis Appreciate vascular surgery help NADIA on CKD III: Likely ATN--presumed nonoliguric Baseline Cr: 0.8 -1.0 Renal USD:No evidence for hydronephrosis. Mild to moderate bilateral renal cortical thinning and cortical scarring consistent with nonobstructive renal insufficiency. Cr:5.0>>3.78 Hold diuretics, ACEIs for now Avoid nephrotoxic agents S/P permanent catheter placement on 03/08/2019 Appreciate nephrology input Hemodialysis as per nephrology Needs outpatient dialysis set up prior to discharge Monitor renal function Monitor hemoglobin monitor transient bleeding at catheter site Community-acquired pneumonia Sepsis Completed antibiotic course Resolved HTN: Continue current medications--hydralazine, metoprolol, amlodipine Monitor BP Elevated troponin Possible related to demand ischemia ( Type 2 NSTEMI ) due to CHF exacerbation( diastolic dysfunction ) and NADIA No significant troponin elevation Echo showed no wall motion abnormality Cardiology on board CODE STATUS FULL CODE DVT Px: Coumadin Disposition Needs Rehab placement when medically stable Subjective Patient is seen and examined at bedside Patient had some oozing of blood around the catheter site overnight Had second treatment of hemodialysis today States feeling well No new complaints Denies any chest pain, shortness of breath, dizziness, nausea, abdominal pain Review of Systems Review of Systems: All systems reviewed & are unremarkable except as noted in HPI & below Physical Exam Physical Exam: Physical Exam: Vitals signs as noted above General Appearance:Obese, no apparent distress Head: normocephalic, Atraumatic Eyes: normal inspection, EOMI Neck: supple, Trachea midline Respiratory/Chest: Normal breath sounds, CTA Cardiovascular: S1, S2, No murmur Abdomen/GI:Soft, Non tender, Bowel sounds present Extremities/Musculoskelatal:normal inspection, B/L LE edema Neurologic/Psych:AAOX3, grossly no focal neurological deficits Skin: normal color, warm Results & Data Vital Signs (Past 12 Hours) Vital Signs Temp Pulse Pulse Pulse Resp BP BP 03/09/19 12:49 36.1 C L 80 140/65 03/09/19 12:33 80 140/75 03/09/19 12:20 80 135/74 03/09/19 12:00 80 132/63 03/09/19 11:40 80 133/69 03/09/19 11:20 80 133/63 03/09/19 11:09 79 127/64 03/09/19 10:40 80 132/60 03/09/19 10:20 80 125/65 03/09/19 10:00 80 120/59 L 03/09/19 09:40 80 126/63 03/09/19 09:32 36.4 C L 80 134/68 03/09/19 08:33 36.2 C L 56 L 22 03/09/19 04:52 36.5 C 83 20 140/65 Pulse Ox 03/09/19 12:49 03/09/19 12:33 03/09/19 12:20 03/09/19 12:00 03/09/19 11:40 03/09/19 11:20 03/09/19 11:09 03/09/19 10:40 03/09/19 10:20 03/09/19 10:00 03/09/19 09:40 03/09/19 09:32 03/09/19 08:33 95 03/09/19 04:52 95 Laboratory Results Short CBC 03/08/19 03/09/19 Range/Units 21:37 14:04 WBC 10.04 (4.8-10.8) K/uL Hgb 11.1 L 11.8 L (12.0-16.0) g/dL Hct 33.6 L 35.5 L (37-47) % Plt Count 189 (130-400) K/uL BMP 03/09/19 06:09 Sodium 136 Potassium 3.6 Chloride 104 Carbon Dioxide 18 L BUN 59 H Creatinine 3.78 H D Glucose 85 Calcium 8.4 L (1) Atrial fibrillation Atrial fibrillation type: longstanding persistent Qualified Code(s): I48.11 - Longstanding persistent atrial fibrillation
[2019-03-09] MEDS: WARFARIN SOD 2.5 MG TAB PO SCH (16:29)
[2019-03-10 06:37] LABS: Hematocrit (blood only) 32.6 % (37-47); Hemoglobin 10.4 g/dL (12.0-16.0); Mean Corpuscular Hemoglobin 31.1 pg (25-34); Mean Corpuscular Hgb Conc 31.9 g/dL (32-36); Mean Corpuscular Volume 97.6 fL (80-100); Mean Platelet Volume 11.4 fL (7.4-10.4); Platelet Count 160 K/uL (130-400); RDW Coefficient of Variation 16.1 % (11.5-14.5); Red Blood Count 3.34 M/uL (4.2-5.4); White Blood Count 12.57 K/uL (4.8-10.8)
[2019-03-10 06:43] LABS: INR 1.4 (0.9-1.1); Prothrombin Time 13.8 Seconds (9.0-12.0)
[2019-03-10 07:11] LABS: BUN Creatinine Ratio 11.2 (10-20); Calcium 8.3 mg/dl (8.5-10.1); Creatinine Clr Calc Pharmacy 17.9 ml/min; Est GFR (African American) 17.4; Potassium 3.4 mmol/L (3.5-5.1)
[2019-03-10] MEDS: BRIMONIDINE TARTRATE 0.2% 5ML OPB SCH ×2 (08:30→20:24)
[2019-03-10] MEDS: PANTOprazole 40 MG TAB PO SCH (08:30)
[2019-03-10] MEDS: BRINZOLAMIDE (AZOPT) OPS 10 ML BTL OPB SCH ×2 (08:30→20:24)
[2019-03-10] MEDS: METOPROLOL SUCC 50MG EXT REL TAB PO SCH ×2 (08:30→20:22)
[2019-03-10] MEDS: AMLODIPINE BESYLATE 5 MG TAB PO SCH ×2 (08:30→20:23)
[2019-03-10] MEDS: FLUTICASONE PROPIONATE NA SPR 16 GM BTL SCH (08:30)
[2019-03-10] MEDS: predniSONE 10 MG TABLET PO SCH (08:30)
[2019-03-10] MEDS: levETIRAcetam 500 MG TAB PO SCH ×2 (08:31→20:22)
[2019-03-10] MEDS ORDERED: POTASSIUM CHLORIDE 20 MEQ TABCR PO STA (08:37)
[2019-03-10 15:00] LABS: Hematocrit (blood only) 32.6 % (37-47); Hemoglobin 10.4 g/dL (12.0-16.0)
[2019-03-10] MEDS: WARFARIN SOD 2.5 MG TAB PO SCH (16:38)
--- NOTE | 2019-03-10 17:46 | Hospitalist Progress Note ---
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) Continue metoprolol 50 mg twice daily Sotalol discontinued secondary to renal insufficiency Previously on Eliquis--renally dosed; currently discontinued secondary to advanced CKD Transitioned to Coumadin due to renal insufficiency INR: 1.4 Continue Coumadin at lower dose due to drop in hemoglobin--currently no acute bleeding Depression: Reports low energy,lack of interest of doing daily activities attributes to her physical weakness, SOB , VALADEZ Given pt's complex medical hx choosing appropriate antidepressant to start with will be a difficult choice Psychiatry consulted Currently not on any meds Denies any suicidal thoughts (2) Acute hypoxemic respiratory failure: Resolved Respiratory status improved to baseline Multifactorial: acute decompensation of Diastolic Heart failure with preserve EF ( ECHO 02/17/19 : EF 60-65% ) with significant valvular heart disease ( severe Mitral and tricuspid regurgitation ) with Pulmonary HTN ( elevated Pulm pressure > 45 mm hg ( normal 8-20 mm Hg ) Possible Pneumonia ( community acquired ) Chest x-ray continues to demonstrate increased interstitial markings right greater than left possible volume overload versus interstitial lung disease Completed 7 days treatment of abx with doxy and IV Zosyn Cardiology on board IV Lasix held due to worsening acute renal failure Monitor volume status Volume managed through dialysis Appreciate vascular surgery help NADIA on CKD III: Likely ATN--presumed nonoliguric Baseline Cr: 0.8 -1.0 Renal USD:No evidence for hydronephrosis. Mild to moderate bilateral renal cortical thinning and cortical scarring consistent with nonobstructive renal insufficiency. Cr:5.0>>3.78>>2.96 Hold diuretics, ACEIs for now Avoid nephrotoxic agents S/P permanent catheter placement on 03/08/2019 Appreciate nephrology input Hemodialysis as per nephrology Needs outpatient dialysis set up prior to discharge Monitor renal function Monitor hemoglobin--transient bleeding at catheter site Likely hemodialysis tomorrow Community-acquired pneumonia Sepsis Completed antibiotic course Resolved HTN: Continue current medications--hydralazine, metoprolol, amlodipine Monitor BP Elevated troponin Possible related to demand ischemia ( Type 2 NSTEMI ) due to CHF exacerbation( diastolic dysfunction ) and NADIA No significant troponin elevation Echo showed no wall motion abnormality Cardiology on board CODE STATUS FULL CODE DVT Px: Coumadin Disposition Needs Rehab placement when medically stable Subjective Patient is seen and examined at bedside Hemoglobin dropped to 10.4, but no obvious bleeding at the catheter site Patient feels well and offers no complaints today Denies any chest pain, shortness of breath, dizziness, nausea, abdominal pain Renal function stable Review of Systems Review of Systems: All systems reviewed & are unremarkable except as noted in HPI & below Physical Exam Physical Exam: Physical Exam: Vitals signs as noted above General Appearance:Obese, no apparent distress Head: normocephalic, Atraumatic Eyes: normal inspection, EOMI Neck: supple, Trachea midline Respiratory/Chest: Normal breath sounds, CTA Cardiovascular: S1, S2, No murmur Abdomen/GI:Soft, Non tender, Bowel sounds present Extremities/Musculoskelatal:normal inspection, B/L LE edema Neurologic/Psych:AAOX3, grossly no focal neurological deficits Skin: normal color, warm Results & Data Vital Signs (Past 12 Hours) Vital Signs Temp Pulse Pulse Resp BP Pulse Ox 03/10/19 15:54 82 03/10/19 15:47 36.8 C 79 18 112/73 95 03/10/19 12:41 36.6 C 80 16 99/64 L 92 03/10/19 08:21 36.7 C 83 18 123/75 91 Laboratory Results Short CBC 03/10/19 03/10/19 Range/Units 06:14 14:51 WBC 12.57 H (4.8-10.8) K/uL Hgb 10.4 L 10.4 L (12.0-16.0) g/dL Hct 32.6 L 32.6 L (37-47) % Plt Count 160 (130-400) K/uL BMP 03/10/19 06:14 Sodium 137 Potassium 3.4 L Chloride 103 Carbon Dioxide 25 BUN 33 H Creatinine 2.96 H D Glucose 83 Calcium 8.3 L (1) Atrial fibrillation Atrial fibrillation type: longstanding persistent Qualified Code(s): I48.11 - Longstanding persistent atrial fibrillation
[2019-03-11] MEDS ORDERED: EPOETIN ALFA 4,000 UNIT/ML VIAL IV ONE (07:00)
[2019-03-11] MEDS ORDERED: EPOETIN ALFA IV SCH (07:00)
[2019-03-11] MEDS ORDERED: SODIUM CHLORIDE 0.9% 1000ML 1,000 ML IV PRN (07:00)
[2019-03-11 07:06] LABS: Hematocrit (blood only) 33.8 % (37-47); Hemoglobin 10.7 g/dL (12.0-16.0)
[2019-03-11 07:17] LABS: INR 1.7 (0.9-1.1); Prothrombin Time 16.4 Seconds (9.0-12.0)
[2019-03-11] MEDS: AMLODIPINE BESYLATE 5 MG TAB PO SCH ×2 (07:30→20:31)
[2019-03-11] MEDS: FLUTICASONE PROPIONATE NA SPR 16 GM BTL SCH (07:30)
[2019-03-11] MEDS: levETIRAcetam 500 MG TAB PO SCH ×2 (07:31→20:31)
[2019-03-11] MEDS: predniSONE 10 MG TABLET PO SCH (07:31)
[2019-03-11] MEDS: BRINZOLAMIDE (AZOPT) OPS 10 ML BTL OPB SCH ×2 (07:31→20:30)
[2019-03-11] MEDS: METOPROLOL SUCC 50MG EXT REL TAB PO SCH ×2 (07:31→20:31)
[2019-03-11] MEDS: PANTOprazole 40 MG TAB PO SCH (07:31)
[2019-03-11] MEDS: BRIMONIDINE TARTRATE 0.2% 5ML OPB SCH ×2 (07:32→20:30)
[2019-03-11 07:42] LABS: BUN Creatinine Ratio 10.4 (10-20); Calcium 8.6 mg/dl (8.5-10.1); Creatinine Clr Calc Pharmacy 13.5 ml/min; Est GFR (African American) 12.5; Est GFR (Non-African American) 10.8; Phosphorus 3.8 mg/dl (2.5-4.9); Potassium 3.8 mmol/L (3.5-5.1)
[2019-03-11] MEDS: WARFARIN SOD 2.5 MG TAB PO SCH (16:00)
--- NOTE | 2019-03-11 16:34 | Hospitalist Progress Note ---
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) Continue metoprolol 50 mg twice daily Sotalol discontinued secondary to renal insufficiency Previously on Eliquis--renally dosed; currently discontinued secondary to advanced CKD Transitioned to Coumadin due to renal insufficiency INR: 1.7 Continue Coumadin 2.5 mg today Depression: Reports low energy,lack of interest of doing daily activities attributes to her physical weakness, SOB , VALADEZ Given pt's complex medical hx choosing appropriate antidepressant to start with will be a difficult choice Psychiatry consulted Currently not on any meds Denies any suicidal thoughts (2) Acute hypoxemic respiratory failure: Resolved Respiratory status improved to baseline Multifactorial: acute decompensation of Diastolic Heart failure with preserve EF ( ECHO 02/17/19 : EF 60-65% ) with significant valvular heart disease ( severe Mitral and tricuspid regurgitation ) with Pulmonary HTN ( elevated Pulm pressure > 45 mm hg ( normal 8-20 mm Hg ) Possible Pneumonia ( community acquired ) Chest x-ray continues to demonstrate increased interstitial markings right greater than left possible volume overload versus interstitial lung disease Completed 7 days treatment of abx with doxy and IV Zosyn Cardiology on board IV Lasix held due to worsening acute renal failure Monitor volume status Volume managed through dialysis Appreciate vascular surgery help NADIA on CKD III: Likely ATN--presumed nonoliguric Baseline Cr: 0.8 -1.0 Renal USD:No evidence for hydronephrosis. Mild to moderate bilateral renal cortical thinning and cortical scarring consistent with nonobstructive renal insufficiency. Cr:5.0>>3.89 Hold diuretics, ACEIs for now Avoid nephrotoxic agents S/P permanent catheter placement on 03/08/2019 Appreciate nephrology input Hemodialysis as per nephrology Needs outpatient dialysis set up prior to discharge Monitor renal function Transient bleeding at catheter site--resolved Had hemodialysis today Community-acquired pneumonia Sepsis Completed antibiotic course Resolved HTN: Continue current medications--hydralazine, metoprolol, amlodipine Monitor BP Elevated troponin Possible related to demand ischemia ( Type 2 NSTEMI ) due to CHF exacerbation( diastolic dysfunction ) and NADIA No significant troponin elevation Echo showed no wall motion abnormality Cardiology on board CODE STATUS FULL CODE DVT Px: Coumadin Disposition Needs Rehab placement when medically stable Plan to discharge when outpatient Rehab/Dialysis is set up Case management following Subjective Patient is seen and examined at bedside Had HD this morning Hb 10.7 today No new complaints No recurrence of catheter site bleeding Denies any chest pain, shortness of breath, dizziness, nausea, abdominal pain Review of Systems Review of Systems: All systems reviewed & are unremarkable except as noted in HPI & below Physical Exam Physical Exam: Physical Exam: Vitals signs as noted above General Appearance:Obese, no apparent distress Head: normocephalic, Atraumatic Eyes: normal inspection, EOMI Neck: supple, Trachea midline Respiratory/Chest: Normal breath sounds, CTA Cardiovascular: S1, S2, No murmur Abdomen/GI:Soft, Non tender, Bowel sounds present Extremities/Musculoskelatal:normal inspection, B/L LE edema better Neurologic/Psych:AAOX3, grossly no focal neurological deficits Skin: normal color, warm Results & Data Vital Signs (Past 12 Hours) Vital Signs Temp Pulse Pulse Pulse Resp BP BP 03/11/19 15:30 36.5 C 58 L 18 124/66 03/11/19 14:59 80 03/11/19 12:30 36.6 C 80 03/11/19 12:20 82 122/57 L 03/11/19 12:00 80 153/76 H 03/11/19 11:40 80 130/74 03/11/19 11:20 80 148/76 H 03/11/19 11:00 80 120/71 03/11/19 10:40 80 135/74 03/11/19 10:20 80 135/75 03/11/19 10:00 80 125/65 03/11/19 09:40 78 131/56 L 03/11/19 09:15 36.6 C 80 80 03/11/19 08:00 80 03/11/19 07:36 36.4 C L 80 20 03/11/19 05:03 36.4 C L 82 17 136/79 BP Pulse Ox 03/11/19 15:30 93 03/11/19 14:59 03/11/19 12:30 154/75 H 03/11/19 12:20 03/11/19 12:00 03/11/19 11:40 03/11/19 11:20 03/11/19 11:00 03/11/19 10:40 03/11/19 10:20 03/11/19 10:00 03/11/19 09:40 03/11/19 09:15 03/11/19 08:00 03/11/19 07:36 123/69 91 03/11/19 05:03 94 Laboratory Results Short CBC 03/11/19 Range/Units 06:49 Hgb 10.7 L (12.0-16.0) g/dL Hct 33.8 L (37-47) % BMP 03/11/19 06:49 Sodium 134 L Potassium 3.8 Chloride 102 Carbon Dioxide 22 BUN 40 H Creatinine 3.89 H D Glucose 83 Calcium 8.6 (1) Atrial fibrillation Atrial fibrillation type: longstanding persistent Qualified Code(s): I48.11 - Longstanding persistent atrial fibrillation
--- NOTE | 2019-03-11 19:26 | Nephrology Progress Note ---
Date of Service March 11, 2019 Assessment & Plan (1) Acute renal failure (ARF): ATN presume nonoliguric. baseline creatinine 0.8-1.0; presenting creatinine 2.8, stalled past few days at creat 4.3 and then peaked at 5.1. valvular HF, vol OL, and AF w/ rates challenging to control and then obligate diuretic initially drove NADIA; -needs non emergent dialysis; unclear how long will need this. got TDC on 03/08; first tx after that on 03/08 ; Patient tolerated HD today with UF 2 litres. Next HD monday. She could go to rehab or home; OP unit [facility] if she needs by time of rehab d/c (2) HTN (hypertension): on metoprolol 50 mg bid; htn improved after procedure -OP ACEI (low dose) on hold -cont amlodipine 5 mg bid -cont prn IV hydralazine (3) Exertional dyspnea: Improving. will take 2 litres off with HD Subjective Patient was seen and examined while on dialysis in the morning. No SOB or pain. BP stable. has leg edema Review of Systems Review of Systems: All systems reviewed & are unremarkable except as noted in HPI & below Physical Exam Physical Exam: General exam: Appears comfortable, no acute distress HEENT: Pupils are equal and reactive to light Neck: No JVD, neck is supple trachea is midline Respiratory system: Clear breath sounds bilaterally. Gastrointestinal: Abdomen is soft, non distended, non tender, bowel sounds are present CVS: Regular rate and rhythm. No murmurs, rubs or gallops Musculoskeletal: No joint or muscle tenderness Extremities: Non tender, 2+ edema, peripheral pulses are present Neuro: Oriented, no tremors, no focal neurological deficits Skin: No rashes Access: right IJ Results & Data Vital Signs (Past 12 Hours) Vital Signs Temp Pulse Pulse Pulse Resp BP BP 03/11/19 15:30 36.5 C 58 L 18 124/66 03/11/19 14:59 80 03/11/19 12:30 36.6 C 80 03/11/19 12:20 82 122/57 L 03/11/19 12:00 80 153/76 H 03/11/19 11:40 80 130/74 03/11/19 11:20 80 148/76 H 03/11/19 11:00 80 120/71 03/11/19 10:40 80 135/74 03/11/19 10:20 80 135/75 03/11/19 10:00 80 125/65 03/11/19 09:40 78 131/56 L 03/11/19 09:15 36.6 C 80 80 03/11/19 08:00 80 03/11/19 07:36 36.4 C L 80 20 BP Pulse Ox 03/11/19 15:30 93 03/11/19 14:59 03/11/19 12:30 154/75 H 03/11/19 12:20 03/11/19 12:00 03/11/19 11:40 03/11/19 11:20 03/11/19 11:00 03/11/19 10:40 03/11/19 10:20 03/11/19 10:00 03/11/19 09:40 03/11/19 09:15 03/11/19 08:00 03/11/19 07:36 123/69 91 Laboratory Results Laboratory Results - last 24 hr 03/11/19 03/11/19 03/11/19 06:49 06:49 06:49 Hgb 10.7 L Hct 33.8 L PT 16.4 H INR 1.7 H Sodium 134 L Potassium 3.8 Chloride 102 Carbon Dioxide 22 Anion Gap 10.0 BUN 40 H Creatinine 3.89 H D Est Cr Clr Drug Dosing 13.5 Est GFR ( Amer) 12.5 Est GFR (Non-Af Amer) 10.8 BUN/Creatinine Ratio 10.4 Glucose 83 Calcium 8.6 Phosphorus 3.8 Magnesium 2.0 (1) Acute renal failure (ARF) Acute renal failure type: unspecified Qualified Code(s): N17.9 - Acute kidney failure, unspecified (2) HTN (hypertension) Hypertension type: essential hypertension Qualified Code(s): I10 - Essential (primary) hypertension
[2019-03-12] MEDS: predniSONE 10 MG TABLET PO SCH (08:53)
[2019-03-12] MEDS: AMLODIPINE BESYLATE 5 MG TAB PO SCH ×2 (08:53→21:22)
[2019-03-12] MEDS: METOPROLOL SUCC 50MG EXT REL TAB PO SCH ×2 (08:53→21:23)
[2019-03-12] MEDS: levETIRAcetam 500 MG TAB PO SCH ×2 (08:54→21:22)
[2019-03-12] MEDS: BRINZOLAMIDE (AZOPT) OPS 10 ML BTL OPB SCH ×2 (08:54→21:20)
[2019-03-12] MEDS: FLUTICASONE PROPIONATE NA SPR 16 GM BTL SCH (08:54)
[2019-03-12] MEDS: BRIMONIDINE TARTRATE 0.2% 5ML OPB SCH ×2 (08:54→21:20)
[2019-03-12] MEDS: PANTOprazole 40 MG TAB PO SCH (08:55)
[2019-03-12 09:00] LABS: Hematocrit (blood only) 36.6 % (37-47); Hemoglobin 11.1 g/dL (12.0-16.0)
[2019-03-12 09:10] LABS: INR 2.1 (0.9-1.1); Prothrombin Time 20.6 Seconds (9.0-12.0)
[2019-03-12 09:41] LABS: BUN Creatinine Ratio 8.2 (10-20); Calcium 8.3 mg/dl (8.5-10.1); Creatinine Clr Calc Pharmacy 15.6 ml/min; Est GFR (African American) 15.1; Potassium 3.8 mmol/L (3.5-5.1)
[2019-03-12] MEDS: WARFARIN SOD 2.5 MG TAB PO SCH (16:26)
--- NOTE | 2019-03-12 17:22 | Nephrology Progress Note ---
Date of Service March 12, 2019 Assessment & Plan (1) Acute renal failure (ARF): ATN presume nonoliguric. baseline creatinine 0.8-1.0; presenting creatinine 2.8, stalled past few days at creat 4.3 and then peaked at 5.1. valvular HF, vol OL, and AF w/ rates challenging to control and then obligate diuretic initially drove NADIA; -needs non emergent dialysis; unclear how long will need this. got TDC on 03/08; first tx after that on 03/08 ; Patient tolerated HD yesterday with UF 2 litres. Next HD monday. She could go to rehab or home; OP unit [facility]. [facility] has inhouse dialysis (2) HTN (hypertension): on metoprolol 50 mg bid; htn improved after procedure -OP ACEI (low dose) on hold -cont amlodipine 5 mg bid -cont prn IV hydralazine (3) Exertional dyspnea: Improving. will take 2 litres off with HD tomorrow Subjective Seen during AM rounds. Feels well. No SOB or pain. HD went well yesterday. Spoke with on phone. Review of Systems Review of Systems: All systems reviewed & are unremarkable except as noted in HPI & below Physical Exam Physical Exam: General exam: Appears comfortable, no acute distress HEENT: Pupils are equal and reactive to light Neck: No JVD, neck is supple trachea is midline Respiratory system: Clear breath sounds bilaterally. Gastrointestinal: Abdomen is soft, non distended, non tender, bowel sounds are present CVS: Regular rate and rhythm. No murmurs, rubs or gallops Musculoskeletal: No joint or muscle tenderness Extremities: Non tender, no edema, peripheral pulses are present Neuro: Oriented, no tremors, no focal neurological deficits Skin: No rashes Access: right ij Results & Data Vital Signs (Past 12 Hours) Vital Signs Temp Pulse Pulse Resp BP Pulse Ox 03/12/19 17:02 80 03/12/19 16:00 36.7 C 79 18 111/68 95 03/12/19 12:16 36.2 C L 80 18 108/70 94 03/12/19 07:58 36.4 C L 80 20 103/61 95 03/12/19 07:33 80 Laboratory Results Laboratory Results - last 24 hr 03/12/19 03/12/19 03/12/19 08:40 08:40 08:40 Hgb 11.1 L Hct 36.6 L PT 20.6 H INR 2.1 H Sodium 135 L Potassium 3.8 Chloride 101 Carbon Dioxide 25 Anion Gap 9.0 BUN 27 H Creatinine 3.34 H D Est Cr Clr Drug Dosing 15.6 Est GFR ( Amer) 15.1 Est GFR (Non-Af Amer) 13.0 BUN/Creatinine Ratio 8.2 L Glucose 112 H Calcium 8.3 L (1) Acute renal failure (ARF) Acute renal failure type: unspecified Qualified Code(s): N17.9 - Acute kidney failure, unspecified (2) HTN (hypertension) Hypertension type: essential hypertension Qualified Code(s): I10 - Essential (primary) hypertension
--- NOTE | 2019-03-12 18:08 | Hospitalist Progress Note ---
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) Continue metoprolol 50 mg twice daily Sotalol discontinued secondary to renal insufficiency Previously on Eliquis--renally dosed; currently discontinued secondary to advanced CKD Transitioned to Coumadin due to renal insufficiency INR: 2.1 Continue Coumadin 2.5 mg today Depression: Reports low energy,lack of interest of doing daily activities attributes to her physical weakness, SOB , VALADEZ Given pt's complex medical hx choosing appropriate antidepressant to start with will be a difficult choice Psychiatry consulted Currently not on any meds Denies any suicidal thoughts (2) Acute hypoxemic respiratory failure: Resolved Respiratory status improved to baseline Multifactorial: acute decompensation of Diastolic Heart failure with preserve EF ( ECHO 02/17/19 : EF 60-65% ) with significant valvular heart disease ( severe Mitral and tricuspid regurgitation ) with Pulmonary HTN ( elevated Pulm pressure > 45 mm hg ( normal 8-20 mm Hg ) Possible Pneumonia ( community acquired ) Chest x-ray continues to demonstrate increased interstitial markings right greater than left possible volume overload versus interstitial lung disease Completed 7 days treatment of abx with doxy and IV Zosyn Cardiology on board IV Lasix held due to worsening acute renal failure Monitor volume status Volume managed through dialysis Appreciate vascular surgery help NADIA on CKD III: Likely ATN--presumed nonoliguric Baseline Cr: 0.8 -1.0 Renal USD:No evidence for hydronephrosis. Mild to moderate bilateral renal cortical thinning and cortical scarring consistent with nonobstructive renal insufficiency. Cr:5.0>>3.89 Hold diuretics, ACEIs for now Avoid nephrotoxic agents S/P permanent catheter placement on 03/08/2019 Appreciate nephrology input Hemodialysis as per nephrology Needs outpatient dialysis set up prior to discharge Monitor renal function Transient bleeding at catheter site--resolved Plan for hemodialysis tomorrow Community-acquired pneumonia Sepsis Completed antibiotic course Resolved HTN: Continue current medications--hydralazine, metoprolol, amlodipine Monitor BP Elevated troponin Possible related to demand ischemia ( Type 2 NSTEMI ) due to CHF exacerbation( diastolic dysfunction ) and NADIA No significant troponin elevation Echo showed no wall motion abnormality Cardiology on board CODE STATUS FULL CODE DVT Px: Coumadin INR therapeutic Disposition Needs Rehab placement when medically stable Plan to discharge when outpatient Rehab/Dialysis is set up Case management following Subjective Patient is seen and examined at bedside Doing well today Offers no complaints Plan to be hemodialyzed tomorrow Denies any chest pain, shortness of breath, dizziness, nausea, abdominal pain Waiting for placement Review of Systems Review of Systems: All systems reviewed & are unremarkable except as noted in HPI & below Physical Exam Physical Exam: Physical Exam: Vitals signs as noted above General Appearance:Obese, no apparent distress Head: normocephalic, Atraumatic Eyes: normal inspection, EOMI Neck: supple, Trachea midline Respiratory/Chest: Normal breath sounds, CTA Cardiovascular: S1, S2, No murmur Abdomen/GI:Soft, Non tender, Bowel sounds present Extremities/Musculoskelatal:normal inspection, B/L LE edema better Neurologic/Psych:AAOX3, grossly no focal neurological deficits Skin: normal color, warm Results & Data Vital Signs (Past 12 Hours) Vital Signs Temp Pulse Pulse Resp BP Pulse Ox 03/12/19 17:02 80 03/12/19 16:00 36.7 C 79 18 111/68 95 03/12/19 12:16 36.2 C L 80 18 108/70 94 03/12/19 07:58 36.4 C L 80 20 103/61 95 03/12/19 07:33 80 Laboratory Results Short CBC 03/12/19 Range/Units 08:40 Hgb 11.1 L (12.0-16.0) g/dL Hct 36.6 L (37-47) % BMP 03/12/19 08:40 Sodium 135 L Potassium 3.8 Chloride 101 Carbon Dioxide 25 BUN 27 H Creatinine 3.34 H D Glucose 112 H Calcium 8.3 L (1) Atrial fibrillation Atrial fibrillation type: longstanding persistent Qualified Code(s): I48.11 - Longstanding persistent atrial fibrillation
[2019-03-13 07:27] LABS: Hematocrit (blood only) 36.3 % (37-47); Mean Corpuscular Hemoglobin 30.2 pg (25-34); Mean Corpuscular Hgb Conc 30.3 g/dL (32-36); Mean Corpuscular Volume 99.7 fL (80-100); Mean Platelet Volume 11.5 fL (7.4-10.4); Platelet Count 152 K/uL (130-400); RDW Standard Deviation 58.6 fL (36.4-46.3); Red Blood Count 3.64 M/uL (4.2-5.4); White Blood Count 12.86 K/uL (4.8-10.8)
[2019-03-13 07:34] LABS: INR 2.5 (0.9-1.1); Prothrombin Time 23.7 Seconds (9.0-12.0)
[2019-03-13] MEDS ORDERED: ACETAMINOPHEN 325 MG TAB PO PRN (07:35)
[2019-03-13 07:54] LABS: BUN Creatinine Ratio 8.9 (10-20); Creatinine Clr Calc Pharmacy 12.8 ml/min; Est GFR (African American) 11.7; Est GFR (Non-African American) 10.1; Potassium 3.9 mmol/L (3.5-5.1)
[2019-03-13] MEDS ORDERED: HEPARIN SOD (PORCINE) 1000 UNIT/ML 10 ML VIAL IV ONE (07:58)
[2019-03-13] MEDS ORDERED: SODIUM CHLORIDE 0.9% 1000ML 1,000 ML IV PRN (07:58)
[2019-03-13] MEDS: levETIRAcetam 500 MG TAB PO SCH ×2 (08:20→20:49)
[2019-03-13] MEDS: METOPROLOL SUCC 50MG EXT REL TAB PO SCH ×2 (08:20→20:50)
[2019-03-13] MEDS: PANTOprazole 40 MG TAB PO SCH (08:20)
[2019-03-13] MEDS: FLUTICASONE PROPIONATE NA SPR 16 GM BTL SCH (08:21)
[2019-03-13] MEDS: BRIMONIDINE TARTRATE 0.2% 5ML OPB SCH ×2 (08:21→20:48)
[2019-03-13] MEDS: BRINZOLAMIDE (AZOPT) OPS 10 ML BTL OPB SCH ×2 (08:21→20:47)
[2019-03-13] MEDS: predniSONE 10 MG TABLET PO SCH (08:22)
[2019-03-13] MEDS: AMLODIPINE BESYLATE 5 MG TAB PO SCH ×2 (08:22→20:50)
[2019-03-13] MEDS: WARFARIN SOD 2.5 MG TAB PO SCH (15:53)
--- NOTE | 2019-03-13 17:48 | Hospitalist Progress Note ---
Date of Service March 13, 2019 Assessment & Plan (1) Acute hypoxemic respiratory failure: -Patient initially admitted on 02/21/19 for acute respiratory failure with hypoxemic respiratory failure -initial impressions were of acute decompensation of Diastolic Heart failure with preserve EF ( ECHO 02/17/19 : EF 60-65% ) with significant valvular heart disease ( severe Mitral and tricuspid regurgitation ) with Pulmonary HTN ( elevated Pulm pressure > 45 mm hg ( normal 8-20 mm Hg ) Possible Pneumonia ( community acquired ) Chest x-ray continues to demonstrate increased interstitial markings right greater than left possible volume overload versus interstitial lung disease -while patient was treated for pulmonary and cardiac etiologies of shortness of breath, patient also developed Acute renal failure and requiring dialysis -patient currently on room air Acute renal failure (ARF): -ATN presume nonoliguric. baseline creatinine 0.8-1.0; presenting creatinine 2.8, stalled past few days at creat 4.3 and then peaked at 5.1. -S/P permanent catheter placement on 03/08/2019 -patient received inpatient dialysis sessions -most recent dialysis completed on 03/13/19 Hypertension -Continue hydralazine, metoprolol, amlodipine Community-acquired pneumonia Sepsis -Completed antibiotic course (Completed 7 days treatment of abx with doxy and IV Zosyn) -currently on room air and no evidence for sepsis currently Depression: -patient had reported low energy,lack of interest of doing daily activities on this admission -current mood stable and not on any anti-depressants (2) Atrial fibrillation: Atrial fibrillation -Underwent AV junction ablation by EP cardiology Dr Adams on this admission; Dual-chamber pacemaker reprogrammed (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 [phone] Disposition -Needs Rehab placement when medically stable -Plan to discharge when outpatient Rehab/Dialysis is set up -Case management following Subjective Patient completed dialysis today. On room air. denies lightheadedness. denies dizziness. no abdomen pain. no vomiting. denies fever. Review of Systems Review of Systems: All systems reviewed & are unremarkable except as noted in HPI & below Physical Exam Constitutional: comfortable Eyes: PERRL, conjunctivae normal, anicteric sclerae EOM intact bilaterally ENMT: external ear and nose normal, oropharynx normal Neck: normal visual inspection Respiratory: normal respiratory effort, lungs clear to auscultation Cardiovascular: Rate/Rhythm: regular rate and regular rhythm Chest (Breasts): Chest: + vascular access device or port Gastrointestinal (Abdomen): normal bowel sounds, soft, nontender, no hepatosplenomegaly Musculoskeletal: Head/Neck/Chest: normocephalic and head atraumatic Neurologic: PERRL, EOMI, accommodation nl, no face palsy, no dysarthria CN's II-XI intact bilaterally Psychiatric: A+Ox3, euthymic affect Results & Data Vital Signs (Past 12 Hours) Vital Signs Temp Pulse Pulse Pulse Resp BP BP 03/13/19 15:25 80 03/13/19 15:06 36.7 C 81 19 03/13/19 12:40 36.5 C 80 03/13/19 12:20 80 137/71 03/13/19 12:00 79 121/66 03/13/19 11:40 80 131/68 03/13/19 11:20 80 143/73 H 03/13/19 11:00 80 130/73 03/13/19 10:40 80 135/70 03/13/19 10:20 80 123/58 L 03/13/19 10:00 80 114/62 03/13/19 09:40 79 113/54 L 03/13/19 09:20 80 113/52 L 03/13/19 09:01 36.5 C 82 03/13/19 07:30 36.6 C 82 18 108/72 BP Pulse Ox 03/13/19 15:25 03/13/19 15:06 128/73 96 03/13/19 12:40 160/79 H 03/13/19 12:20 03/13/19 12:00 03/13/19 11:40 03/13/19 11:20 03/13/19 11:00 03/13/19 10:40 03/13/19 10:20 03/13/19 10:00 03/13/19 09:40 03/13/19 09:20 03/13/19 09:01 03/13/19 07:30 93 (1) Atrial fibrillation Atrial fibrillation type: longstanding persistent Qualified Code(s): I48.11 - Longstanding persistent atrial fibrillation
--- NOTE | 2019-03-13 17:49 | Nephrology Progress Note ---
Date of Service March 13, 2019 Assessment & Plan (1) Acute renal failure (ARF): ATN presume nonoliguric. baseline creatinine 0.8-1.0; presenting creatinine 2.8, stalled past few days at creat 4.3 and then peaked at 5.1. valvular HF, vol OL, and AF w/ rates challenging to control and then obligate diuretic initially drove NADIA; -got TDC on 03/08; first tx after that on 03/08 ; Patient tolerated HD today with UF 2 litres. Next HD Monday. She could go to rehab or home; OP unit would eventually be [facility]. [facility] has inhouse dialysis (2) HTN (hypertension): on metoprolol 50 mg bid; htn improved after procedure -OP ACEI (low dose) on hold -cont amlodipine 5 mg bid -cont prn IV hydralazine (3) Exertional dyspnea: Improving with HD Subjective Patient was seen and examined on dialysis. No SOB or pain. Has mild leg swelling. Review of Systems Review of Systems: All systems reviewed & are unremarkable except as noted in HPI & below Physical Exam Physical Exam: General exam: Appears comfortable, no acute distress HEENT: Pupils are equal and reactive to light Neck: No JVD, neck is supple trachea is midline Respiratory system: Clear breath sounds bilaterally. Gastrointestinal: Abdomen is soft, non distended, non tender, bowel sounds are present CVS: Regular rate and rhythm. No murmurs, rubs or gallops Musculoskeletal: No joint or muscle tenderness Extremities: Non tender, 1+ edema, peripheral pulses are present Neuro: Oriented, no tremors, no focal neurological deficits Skin: No rashes Access: right IJ Results & Data Vital Signs (Past 12 Hours) Vital Signs Temp Pulse Pulse Pulse Resp BP BP 03/13/19 15:25 80 03/13/19 15:06 36.7 C 81 19 03/13/19 12:40 36.5 C 80 03/13/19 12:20 80 137/71 03/13/19 12:00 79 121/66 03/13/19 11:40 80 131/68 03/13/19 11:20 80 143/73 H 03/13/19 11:00 80 130/73 03/13/19 10:40 80 135/70 03/13/19 10:20 80 123/58 L 03/13/19 10:00 80 114/62 03/13/19 09:40 79 113/54 L 03/13/19 09:20 80 113/52 L 03/13/19 09:01 36.5 C 82 03/13/19 07:30 36.6 C 82 18 108/72 BP Pulse Ox 03/13/19 15:25 03/13/19 15:06 128/73 96 03/13/19 12:40 160/79 H 03/13/19 12:20 03/13/19 12:00 03/13/19 11:40 03/13/19 11:20 03/13/19 11:00 03/13/19 10:40 03/13/19 10:20 03/13/19 10:00 03/13/19 09:40 03/13/19 09:20 03/13/19 09:01 03/13/19 07:30 93 Laboratory Results Laboratory Results - last 24 hr 03/13/19 03/13/19 03/13/19 07:12 07:12 07:12 WBC 12.86 H RBC 3.64 L Hgb 11.0 L Hct 36.3 L MCV 99.7 MCH 30.2 MCHC 30.3 L RDW Std Deviation 58.6 H RDW Coeff of Allan 16.0 H Plt Count 152 MPV 11.5 H PT 23.7 H INR 2.5 H Sodium 134 L Potassium 3.9 Chloride 101 Carbon Dioxide 23 Anion Gap 10.0 BUN 37 H Creatinine 4.13 H D Est Cr Clr Drug Dosing 12.8 Est GFR ( Amer) 11.7 Est GFR (Non-Af Amer) 10.1 BUN/Creatinine Ratio 8.9 L Glucose 83 Calcium 9.0 (1) Acute renal failure (ARF) Acute renal failure type: unspecified Qualified Code(s): N17.9 - Acute kidney failure, unspecified (2) HTN (hypertension) Hypertension type: essential hypertension Qualified Code(s): I10 - Essential (primary) hypertension
[2019-03-14 06:21] LABS: INR 2.9 (0.9-1.1); Prothrombin Time 27.4 Seconds (9.0-12.0)
[2019-03-14] MEDS: BRIMONIDINE TARTRATE 0.2% 5ML OPB SCH ×2 (08:47→21:13)
[2019-03-14] MEDS: BRINZOLAMIDE (AZOPT) OPS 10 ML BTL OPB SCH ×2 (08:48→21:13)
[2019-03-14] MEDS: FLUTICASONE PROPIONATE NA SPR 16 GM BTL SCH (08:49)
[2019-03-14] MEDS: levETIRAcetam 500 MG TAB PO SCH ×2 (08:49→21:15)
[2019-03-14] MEDS: AMLODIPINE BESYLATE 5 MG TAB PO SCH ×2 (08:50→21:16)
[2019-03-14] MEDS: predniSONE 10 MG TABLET PO SCH (08:51)
[2019-03-14] MEDS: PANTOprazole 40 MG TAB PO SCH (08:51)
[2019-03-14] MEDS: METOPROLOL SUCC 50MG EXT REL TAB PO SCH ×2 (08:51→21:16)
--- NOTE | 2019-03-14 13:35 | Hospitalist Progress Note ---
Date of Service March 14, 2019 Assessment & Plan (1) Acute hypoxemic respiratory failure: -Patient initially admitted on 02/21/19 for acute respiratory failure with hypoxemic respiratory failure -initial impressions were of acute decompensation of Diastolic Heart failure with preserve EF ( ECHO 02/17/19 : EF 60-65% ) with significant valvular heart disease ( severe Mitral and tricuspid regurgitation ) with Pulmonary HTN ( elevated Pulm pressure > 45 mm hg ( normal 8-20 mm Hg ) Possible Pneumonia ( community acquired ) Chest x-ray continues to demonstrate increased interstitial markings right greater than left possible volume overload versus interstitial lung disease -while patient was treated for pulmonary and cardiac etiologies of shortness of breath, patient also developed Acute renal failure and requiring dialysis -patient currently on room air Acute renal failure (ARF): -ATN presume nonoliguric. baseline creatinine 0.8-1.0; presenting creatinine 2.8, stalled past few days at creat 4.3 and then peaked at 5.1. -S/P permanent catheter placement on 03/08/2019 -patient received inpatient dialysis sessions -most recent dialysis completed on 03/13/19 Hypertension -Continue hydralazine, metoprolol, amlodipine Community-acquired pneumonia Sepsis -Completed antibiotic course (Completed 7 days treatment of abx with doxy and IV Zosyn) -currently on room air and no evidence for sepsis currently Depression: -patient had reported low energy,lack of interest of doing daily activities on this admission -current mood stable and not on any anti-depressants (2) Atrial fibrillation: Atrial fibrillation -Underwent AV junction ablation by EP cardiology Dr Adams on this admission; Dual-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 [phone] Disposition -Needs Rehab placement when medically stable -Plan to discharge when outpatient Rehab/Dialysis is set up -Case management following Subjective Patient seen and examined at bedside. No acute telemetry events. Patient denies new symptoms. she ate the meals. no abdomen pain. no vomiting. breathing on room air. we discussed plans about case management arranging physical rehabilitation facility or SNF after hospital stay but there is no movement on the progress of these plans as today is a holiday Review of Systems Review of Systems: All systems reviewed & are unremarkable except as noted in HPI & below Physical Exam Constitutional: comfortable Eyes: PERRL, conjunctivae normal, anicteric sclerae EOM intact bilaterally ENMT: external ear and nose normal, oropharynx normal Neck: normal visual inspection Respiratory: normal respiratory effort, lungs clear to auscultation Cardiovascular: Rate/Rhythm: regular rate and regular rhythm Chest (Breasts): Chest: + vascular access device or port Gastrointestinal (Abdomen): normal bowel sounds, soft, nontender, no hepatosplenomegaly Musculoskeletal: Head/Neck/Chest: normocephalic and head atraumatic Neurologic: PERRL, EOMI, accommodation nl, no face palsy, no dysarthria CN's II-XI intact bilaterally Psychiatric: A+Ox3, euthymic affect Results & Data Vital Signs (Past 12 Hours) Vital Signs Temp Pulse Pulse Resp BP Pulse Ox 03/14/19 12:58 37.2 C 81 20 119/69 95 03/14/19 08:03 37.2 C 81 18 129/74 92 03/14/19 03:55 36.3 C L 83 16 121/74 94 (1) Atrial fibrillation Atrial fibrillation type: longstanding persistent Qualified Code(s): I48.11 - Longstanding persistent atrial fibrillation
[2019-03-15] MEDS: BRIMONIDINE TARTRATE 0.2% 5ML OPB SCH (07:32)
[2019-03-15] MEDS: BRINZOLAMIDE (AZOPT) OPS 10 ML BTL OPB SCH (07:33)
[2019-03-15] MEDS: FLUTICASONE PROPIONATE NA SPR 16 GM BTL SCH (07:33)
[2019-03-15] MEDS: predniSONE 10 MG TABLET PO SCH (07:34)
[2019-03-15] MEDS: PANTOprazole 40 MG TAB PO SCH (07:34)
[2019-03-15] MEDS: levETIRAcetam 500 MG TAB PO SCH (07:34)
[2019-03-15] MEDS ORDERED: HEPARIN SOD (PORCINE) 1000 UNIT/ML 10 ML VIAL IV ONE (07:39)
[2019-03-15] MEDS ORDERED: SODIUM CHLORIDE 0.9% 1000ML 1,000 ML IV PRN (07:39)
[2019-03-15 08:33] LABS: INR 2.5 (0.9-1.1)
[2019-03-15 08:51] LABS: Albumin Level 2.8 gm/dl (3.4-5.0); Calcium 8.9 mg/dl (8.5-10.1); Creatinine Clr Calc Pharmacy 12.9 ml/min; Est GFR (Non-African American) 10.3; Potassium 4.1 mmol/L (3.5-5.1)
[2019-03-15 08:53] LABS: Albumin Globulin Ratio 0.9 (0.9-2); Bilirubin,Total 1.1 mg/dl (0.2-1); Total Protein 5.8 gm/dl (6.4-8.2)
--- NOTE | 2019-03-15 13:46 | Hospitalist Progress Note ---
Date of Service March 15, 2019 Assessment & Plan (1) Acute hypoxemic respiratory failure: -Patient initially admitted on 02/21/19 for acute respiratory failure with hypoxemic respiratory failure -initial impressions were of acute decompensation of Diastolic Heart failure with preserve EF ( ECHO 02/17/19 : EF 60-65% ) with significant valvular heart disease ( severe Mitral and tricuspid regurgitation ) with Pulmonary HTN ( elevated Pulm pressure > 45 mm hg ( normal 8-20 mm Hg ) Possible Pneumonia ( community acquired ) Chest x-ray continues to demonstrate increased interstitial markings right greater than left possible volume overload versus interstitial lung disease -while patient was treated for pulmonary and cardiac etiologies of shortness of breath, patient also developed Acute renal failure and requiring dialysis -patient currently on room air Acute renal failure (ARF): -ATN presume nonoliguric. baseline creatinine 0.8-1.0; presenting creatinine 2.8, stalled past few days at creat 4.3 and then peaked at 5.1. -S/P permanent catheter placement on 03/08/2019 -patient received inpatient dialysis sessions -most recent dialysis completed on 03/15/19 -continue dialysis every Monday/Monday/Monday recent hospital dialysis performed on 03/15/19 next dialysis is 03/18/19 at [facility] Hypertension -Continue hydralazine, metoprolol, amlodipine Community-acquired pneumonia Sepsis -Completed antibiotic course (Completed 7 days treatment of abx with doxy and IV Zosyn) -currently on room air and no evidence for sepsis currently Depression: -patient had reported low energy,lack of interest of doing daily activities on this admission -current mood stable and not on any anti-depressants (2) Atrial fibrillation: Atrial fibrillation -Underwent AV junction ablation by EP cardiology Dr Adams on this admission; 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 [phone] Disposition: Patient is discharged to [facility] for physical rehabilitations Discharge Medications are sent electronically to: [facility] [address], [place] [address] which is the pharmacy used by [facility] (DO NOT TAKE : OVER THE COUNTER PAIN MEDICATIONS : ADVIL, ALEVE , MOTRIN, MOBIC , IBUPROFEN , NAPROXEN , HIGH DOSE ASPIRIN because THESE DRUGS CAN CAUSE WORSENING OF YOUR KIDNEY FUNCTION) Patient will need periodic INR labs to be drawn while on coumadin (warfarin) INR on 03/15/19 is 2.5. goal INR is 2 to 3. continue dialysis every Monday/Monday/Monday recent hospital dialysis performed on 03/15/19 next dialysis is 03/18/19 at [facility] 03/19/19 9:45 AM Provider Wilfredo Liang MD Department Internal Medicine [facility] Cardiology clinic: 04/05/2019 8:30 AM Provider Natalie Adams DO Department Cardiology, [facility] Nephrology 04/11/2019 11:20 AM Provider Nora Hannon MD Department Nephrology, [facility] clinic Address: [facility] [address], [place] [address] Discharge Diagnosis ATRIAL FIBRILLATION (Underwent AV junction ablation by cardiology on this admission; Dual-chamber pacemaker reprogrammed ), anticoagulated on coumadin for persistent atrial fibrillation, acute decompensation of Diastolic Heart failure with preserve EF ( EF 60-65% ) with significant valvular heart disease ( severe Mitral and tricuspid regurgitation ) with Pulmonary HTN (elevated Pulmonary pressure > 45 mm hg) , Community-acquired pneumonia / Sepsis (completed treatment), Acute renal failure, on dialysis Subjective Patient seen and examined during dialysis. Breathing on room air. No Shortness of breath. no chest pain. no abdominal pain. no dizziness. no lightheadedness. discharge plans discussed with patient as she has bed to [facility] and outpatient dialysis is set up Review of Systems Review of Systems: All systems reviewed & are unremarkable except as noted in HPI & below Physical Exam Constitutional: comfortable Eyes: PERRL, conjunctivae normal, anicteric sclerae EOM intact bilaterally ENMT: external ear and nose normal, oropharynx normal Neck: normal visual inspection Respiratory: normal respiratory effort, lungs clear to auscultation Cardiovascular: Rate/Rhythm: regular rate and regular rhythm Chest (Breasts): Chest: + vascular access device or port Gastrointestinal (Abdomen): normal bowel sounds, soft, nontender, no hepatosplenomegaly Musculoskeletal: Head/Neck/Chest: normocephalic and head atraumatic Neurologic: PERRL, EOMI, accommodation nl, no face palsy, no dysarthria CN's II-XI intact bilaterally Psychiatric: A+Ox3, euthymic affect Results & Data Vital Signs (Past 12 Hours) Vital Signs Temp Pulse Pulse Pulse Pulse Resp BP 03/15/19 13:20 80 136/72 03/15/19 13:00 80 135/72 03/15/19 12:40 80 131/73 03/15/19 12:20 80 146/76 H 03/15/19 12:00 80 146/71 H 03/15/19 11:40 81 132/53 L 03/15/19 11:20 80 142/69 H 03/15/19 11:00 80 140/67 03/15/19 10:40 80 114/55 L 03/15/19 10:21 80 130/66 03/15/19 10:01 80 127/67 03/15/19 09:50 36.7 C 81 03/15/19 08:14 36.7 C 83 16 03/15/19 04:41 36.6 C 80 80 93 H 20 BP Pulse Ox 03/15/19 13:20 03/15/19 13:00 03/15/19 12:40 03/15/19 12:20 03/15/19 12:00 03/15/19 11:40 03/15/19 11:20 03/15/19 11:00 03/15/19 10:40 03/15/19 10:21 03/15/19 10:01 03/15/19 09:50 03/15/19 08:14 128/75 92 03/15/19 04:41 147/72 H 93 (1) Atrial fibrillation Atrial fibrillation type: longstanding persistent Qualified Code(s): I48.11 - Longstanding persistent atrial fibrillation
--- NOTE | 2019-03-15 13:50 | Discharge Summary ---
Date of Service March 15, 2019 Admission HPI Per Admitting Provider Tia Mason is a 73-year-old female admitted medically on 02/21/19 after presenting to the ED with shortness of breath and cough. Pt has PMH of hypertension, hyperlipidemia, arthritis, stage 3 CKD, A fib, CHF, and s/p pacemaker placement. Nephrology and cardiology services have already been consulted to provide recommendations for patient's treatment. Psychiatric consultation was requested to evaluate patient for "depression." Progress note from 03/03/19 reviewed - had reported concerns to attending physician regarding patient's mood. He had reported concern that patient has not been active and minimally ambulatory for the past 6-7 months. Progress note from today mentions that patient's had called in with concern for patient's depression. He states she has been "mostly staying in bed, sleeping long hours, and minimally motivated to do daily activities/routine." It was reported that the patient had mentioned "that she does not wish to live any more like this." is requested evaluation to determine if medications would be helpful. Pt was seen today for psychiatric evaluation, accompanied by psychiatric nurse liaison. Pt was cooperative with assessment, stating she is feeling a bit weak today. Pt states that she is being treated for pneumonia, having been brought to the ED for SOB and cough. Pt states that she had been experiencing symptoms for several weeks before presenting to the ED for treatment. When initially asked, the patient states that she has not been experiencing any concerns related to her mood. She reported her mood was "fine" and that she had only been overwhelmed by the hospital experience, but denied anxiety or depression prior to admission. Pt said that her sleep and appetite had been find and that she had no concerns related to her mental health. Pt was asked if her or anyone close to her had expressed concern about her mood. She states, "yeah, my has been concerns. He keeps telling me to try harder." Pt states that she feels "ok" about these comments, reporting "I know he cares." Pt admits that when she is feeling well, she is able to clean her home, keep up with cooking meals, and is generally energetic. She is now admitting that she has been experiencing very poor energy since the implantation of her pacemaker. She states she has been feeling "crummy" and "I couldn't do a dag-on thing at home without getting tired." Pt admitted to low mood for several months, and reports poor appetite since being in the hospital. She does admit that she has been tired, and sleeping more often throughout the day. Pt states that although she has not been feeling well, she has not been experiencing SI. She denies history of SI or suicide attempts. Pt denies SI, HI, SIB, A/V hallucinations, paranoia, leann/hypomania, other symptoms more suggestive of a bipolar presentation, OCD, PTSD, eating disorder, and other specific psychiatric symptoms. Principal Diagnosis ATRIAL FIBRILLATION (Underwent AV junction ablation by cardiology on this admission; Dual-chamber pacemaker reprogrammed ), anticoagulated on coumadin for persistent atrial fibrillation, acute decompensation of Diastolic Heart failure with preserve EF ( EF 60-65% ) with significant valvular heart disease ( severe Mitral and tricuspid regurgitation ) with Pulmonary HTN (elevated Pulmonary pressure > 45 mm hg) , Community-acquired pneumonia / Sepsis (completed treatment), Acute renal failure, on dialysis Discharge Exam Constitutional comfortable Eyes PERRL, conjunctivae normal, anicteric sclerae EOM intact bilaterally ENMT external ear and nose normal, oropharynx normal Neck normal visual inspection Respiratory normal respiratory effort, lungs clear to auscultation Cardiovascular Rate/Rhythm: regular rate and regular rhythm Chest (Breasts) Chest: + vascular access device or port Gastrointestinal (Abdomen) normal bowel sounds, soft, nontender, no hepatosplenomegaly Musculoskeletal Head/Neck/Chest: normocephalic and head atraumatic Neurologic PERRL, EOMI, accommodation nl, no face palsy, no dysarthria CN's II-XI intact bilaterally Psychiatric A+Ox3, euthymic affect Discharge Data Allergies Allergy/AdvReac Type Severity Reaction Status Date / Time phenytoin Allergy Intermediate HIVES AND Verified 02/21/19 04:57 MOUTH ULCERS codeine AdvReac Mild VOMITTING Verified 02/21/19 04:57 Bactrim AdvReac Unknown "FEELS Verified 10/23/18 12:53 LIKE KNIVES ARE IN MY HEAD" hydrochlorothiazide AdvReac Unknown SEE COMMENT Verified 02/21/19 04:57 sulfamethoxazole AdvReac Unknown "FEELS Verified 02/21/19 04:57 LIKE KNIVES ARE IN MY HEAD" trimethoprim AdvReac Unknown "FEELS Verified 02/21/19 04:57 LIKE KNIVES ARE IN MY HEAD" Dust Allergy Mild SINUS Uncoded 02/21/19 04:57 INFECTIONS Consultations 02/21/19 06:07 ED Decision to Admit Stat 02/21/19 08:24 Consult Case Management - Discharge Planning Routine 02/21/19 17:13 Consult Cardiology Routine 02/22/19 06:00 Consult Nephrology Routine 03/04/19 14:17 Consult Psychiatry Routine 03/06/19 16:21 Consult Vascular Surgery Routine Procedures Performed Operation Date: 02/27/19 12:00 Actual Procedures p AV Node Ablation - Natalie Adams DO s Interrogation of Pacer - Natalie Adams DO Operation Date: 03/08/19 09:10 Actual Procedures p Insertion Of Perm Catheter, Right Internal Jugular Approach, Ultrasound Localization Of Right Internal Jugular Vein, Fluoroscopy For Positioning, Moderate Concious Sedation 0951 to 1013(Right) - Max Sifuentes MD Ordered Studies 02/21/19 06:50 CT abd pelvis wo con Urgent CT chest wo con Urgent 02/27/19 13:45 EP Lab Images for PACS ONCE 03/05/19 09:17 US renal/blad retro comp Routine 03/08/19 08:00 EV cvc insrt tunnel wo prt/lye treater Routine 03/08/19 09:15 US guide vascular access Routine Hospital Course (1) Acute hypoxemic respiratory failure: -Patient initially admitted on 02/21/19 for acute respiratory failure with hypoxemic respiratory failure -initial impressions were of acute decompensation of Diastolic Heart failure with preserve EF ( ECHO 02/17/19 : EF 60-65% ) with significant valvular heart disease ( severe Mitral and tricuspid regurgitation ) with Pulmonary HTN ( elevated Pulm pressure > 45 mm hg ( normal 8-20 mm Hg ) Possible Pneumonia ( community acquired ) Chest x-ray continues to demonstrate increased interstitial markings right greater than left possible volume overload versus interstitial lung disease -while patient was treated for pulmonary and cardiac etiologies of shortness of breath, patient also developed Acute renal failure and requiring dialysis -patient currently on room air Acute renal failure (ARF): -ATN presume nonoliguric. baseline creatinine 0.8-1.0; presenting creatinine 2.8, stalled past few days at creat 4.3 and then peaked at 5.1. -S/P permanent catheter placement on 03/08/2019 -patient received inpatient dialysis sessions -most recent dialysis completed on 03/15/19 -continue dialysis every Monday/Monday/Monday recent hospital dialysis performed on 03/15/19 next dialysis is 03/18/19 at [facility] Hypertension -Continue hydralazine, metoprolol, amlodipine Community-acquired pneumonia Sepsis -Completed antibiotic course (Completed 7 days treatment of abx with doxy and IV Zosyn) -currently on room air and no evidence for sepsis currently Depression: -patient had reported low energy,lack of interest of doing daily activities on this admission -current mood stable and not on any anti-depressants (2) Atrial fibrillation: Atrial fibrillation -Underwent AV junction ablation by EP cardiology Dr Adams on this admission; 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 [phone] Disposition: Patient is discharged to [facility] for physical rehabilitations Discharge Medications are sent electronically to: [facility] [address], [place] [address] which is the pharmacy used by [facility] (DO NOT TAKE : OVER THE COUNTER PAIN MEDICATIONS : ADVIL, ALEVE , MOTRIN, MOBIC , IBUPROFEN , NAPROXEN , HIGH DOSE ASPIRIN because THESE DRUGS CAN CAUSE WORSENING OF YOUR KIDNEY FUNCTION) Patient will need periodic INR labs to be drawn while on coumadin (warfarin) INR on 03/15/19 is 2.5. goal INR is 2 to 3. continue dialysis every Monday/Monday/Monday recent hospital dialysis performed on 03/15/19 next dialysis is 03/18/19 at [facility] Primary Care 03/19/19 9:45 AM Provider Wilfredo Liang MD Department Internal Medicine [facility] Cardiology clinic: 04/05/2019 8:30 AM Provider Natalie Adams DO Department Cardiology, [facility] Nephrology 04/11/2019 11:20 AM Provider Nora Hannon MD Department Nephrology, [facility] clinic Address: [facility] [address], [place] [address] Discharge Diagnosis ATRIAL FIBRILLATION (Underwent AV junction ablation by cardiology on this admission; Dual-chamber pacemaker reprogrammed ), anticoagulated on coumadin for persistent atrial fibrillation, acute decompensation of Diastolic Heart failure with preserve EF ( EF 60-65% ) with significant valvular heart disease ( severe Mitral and tricuspid regurgitation ) with Pulmonary HTN (elevated Pulmonary pressure > 45 mm hg) , Community-acquired pneumonia / Sepsis (completed treatment), Acute renal failure, on dialysis Total Time Total Time Spent Total Time Spent (In Minutes): 40 minutes Total Time Includes: Examination of the Patient, Discharge Planning, Medication Reconciliation and Communication With Other Providers Discharge Plan Discharge Items Patient Disposition: Transfer Group Home Fac Reason For Visit: RESP FAILURE Discharge Diagnosis: ATRIAL FIBRILLATION (Underwent AV junction ablation by cardiology on this admission; Dual-chamber pacemaker reprogrammed ), anticoagulated on coumadin for persistent atrial fibrillation, acute decompensation of Diastolic Heart failure with preserve EF ( ECHO 02/17/19 : EF 60-65% ) with significant valvular heart disease ( severe Mitral and tricuspid regurgitation ) with Pulmonary HTN (elevated Pulmonary pressure > 45 mm hg) , Community-acquired pneumonia / Sepsis (completed treatment), Acute renal failure, on dialysis Activity: As commented below Activity Comment: CONTINUE PHYSICAL THERAPY /OCCUPATIONAL THERAPY AT REHAB Non-emergency contact: Primary Care Provider Call non-emergency contact if: you have any medication questions Follow-up/Referrals: Wilfredo Liang MD [Primary Care Provider] - Diet: Dialysis Renal Addtl Attending Provider Instructions: Patient is discharged to [facility] for physical rehabilitations Discharge Medications are sent electronically to: [facility] [address], [place] [address] which is the pharmacy used by [facility] (DO NOT TAKE : OVER THE COUNTER PAIN MEDICATIONS : ADVIL, ALEVE , MOTRIN, MOBIC , IBUPROFEN , NAPROXEN , HIGH DOSE ASPIRIN because THESE DRUGS CAN CAUSE WORSENI NG OF YOUR KIDNEY FUNCTION) Patient will need periodic INR labs to be drawn while on coumadin (warfarin) INR on 03/15/19 is 2.5. goal INR is 2 to 3. continue dialysis every Monday/Monday/Monday recent hospital dialysis performed on 03/15/19 next dialysis is 03/18/19 at [facility] Care 03/19/19 9:45 AM Provider Wilfredo Liang MD Department Internal Medicine [facility] Cardiology clinic: 04/05/2019 8:30 AM Provider Natalie Adams DO Department Cardiology, [facility] Nephrology 04/11/2019 11:20 AM Provider Nora Hannon MD Department Nephrology, [facility] Address: [address] [place] [address], [place] [address] Pending Studies at Discharge: Yes Stand-Alone Forms: My [facility] Skilled Items Patient informed of condition?: Yes DNR: No Discharge Level of Care: Skilled Communicable Disease: No Discharge Prognosis: Stable Lines: None Urinary Catheter: No Medications and DC Order Prescriptions: New warfarin [Coumadin] 2.5 mg Tablet 2.5 mg PO DAILY 30 Days Qty: 30 RF: 0 hydralazine 25 mg tablet 12.5 mg PO BID Qty: 30 RF: 0 metoprolol succinate 50 mg Tablet Extended Release 24 Hr 50 mg PO BID 30 Days Qty: 60 RF: 0 hydralazine 25 mg Tablet 12.5 mg PO BID 30 Days Qty: 30 RF: 0 amlodipine [Norvasc] 5 mg Tablet 5 mg PO BID 30 Days Qty: 60 RF: 0 levetiracetam [Keppra] 500 mg Tablet 500 mg PO BID 30 Days Qty: 60 RF: 0 warfarin [Coumadin] 2.5 mg Tablet 2.5 mg PO DAILY@1600 30 Days Qty: 30 RF: 0 Continued fexofenadine [Lulu Allergy] 180 mg Tablet 180 mg PO DAILY PRN (Reason: Allergy Symptoms) RF: 0 metoprolol tartrate 50 mg Tablet 50 mg PO BID Qty: 60 RF: 0 atorvastatin 20 mg Tablet 20 mg PO QAM RF: 0 trazodone 50 mg Tablet 50 mg PO HS RF: 0 levetiracetam 500 mg Tablet 500 mg PO BID RF: 0 cholecalciferol (vitamin D3) [Vitamin D3] 1,000 unit Capsule 1,000 unit PO QAM RF: 0 omeprazole 20 mg Tablet,Delayed Release (Dr/Ec) 20 mg PO QAM RF: 0 fluticasone propionate [Flonase Allergy Relief] 50 mcg/actuation Knipp[place],Suspension 2 spray INTRANASAL DAILY RF: 0 prednisone 10 mg tablet 10 mg PO DAILY RF: 0 brinzolamide-brimonidine 1-0.2 % Drops,Suspension 1 drp OPB BID RF: 0 Discontinued sotalol 80 mg tablet 120 mg PO BID Qty: 180 RF: 1 furosemide 40 mg Tablet 40 mg PO QAM RF: 0 potassium 99 mg Tablet 99 mg PO TID RF: 0 lisinopril 10 mg Tablet 5 mg PO QAM RF: 0 Eliquis 5 mg Tablet 5 mg PO BID RF: 0 furosemide 40 mg tablet 40 mg PO 2XWK RF: 0 cephalexin 500 mg capsule 500 mg PO QID RF: 0 Discharge Orders: Discharge Order (Routine); Ordered 03/15/19 Ordered By: Dale Ko Admission Data Admit Date/Time: 02/21/19 06:57 Attending Provider: Dale Ko Admit Provider: Doug Sifuentes Primary Care Provider: Wilfredo Liang Other Providers: [facility] ; [facility] ; [facility] [place] ; Paulie Guerra ; Fritz Puente ; Nora Hannon ; Madeline Maharaj ; Max Sifuentes
[2019-03-15] MEDS: METOPROLOL SUCC 50MG EXT REL TAB PO SCH (14:47)
[2019-03-15] MEDS: AMLODIPINE BESYLATE 5 MG TAB PO SCH (14:47)
[2019-03-15] MEDS ORDERED: WARFARIN SOD 2.5 MG TAB PO SCH (16:00)
--- NOTE | 2019-03-15 17:42 | Nephrology Progress Note ---
Date of Service March 15, 2019 Assessment & Plan (1) Acute renal failure (ARF): ATN presume nonoliguric. baseline creatinine 0.8-1.0; presenting creatinine 2.8, stalled past few days at creat 4.3 and then peaked at 5.1. valvular HF, vol OL, and AF w/ rates challenging to control and then obligate diuretic initially drove NADIA; -got TDC on 03/08; first tx after that on 03/08 ; Patient tolerated HD today with UF 2 litres. Next HD Monday. OP unit will be [facility]. (2) HTN (hypertension): on metoprolol 50 mg bid; htn improved after procedure -OP ACEI (low dose) on hold -cont amlodipine 5 mg bid -cont prn IV hydralazine (3) Exertional dyspnea: Improving with HD Subjective Patient seen during morning rounds. She was seen and examined while on dialysis. No SOB or pain. She tolerated HD well. Review of Systems Review of Systems: All systems reviewed & are unremarkable except as noted in HPI & below Physical Exam Physical Exam: General exam: Appears comfortable, no acute distress HEENT: Pupils are equal and reactive to light Neck: No JVD, neck is supple trachea is midline Respiratory system: Clear breath sounds bilaterally. Gastrointestinal: Abdomen is soft, non distended, non tender, bowel sounds are present CVS: Regular rate and rhythm. No murmurs, rubs or gallops Musculoskeletal: No joint or muscle tenderness Extremities: Non tender, no edema, peripheral pulses are present Neuro: Oriented, no tremors, no focal neurological deficits Skin: No rashes Access: right IJ Results & Data Vital Signs (Past 12 Hours) Vital Signs Temp Pulse Pulse Pulse Pulse Resp BP 03/15/19 14:55 36.3 C L 80 80 93 H 16 03/15/19 14:46 80 03/15/19 13:43 36.3 C L 80 03/15/19 13:20 80 136/72 03/15/19 13:00 80 135/72 03/15/19 12:40 80 131/73 03/15/19 12:20 80 146/76 H 03/15/19 12:00 80 146/71 H 03/15/19 11:40 81 132/53 L 03/15/19 11:20 80 142/69 H 03/15/19 11:00 80 140/67 11/29/19 10:40 80 114/55 L 03/15/19 10:21 80 130/66 03/15/19 10:01 80 127/67 03/15/19 09:50 36.7 C 81 03/15/19 08:14 36.7 C 83 16 BP BP Pulse Ox 03/15/19 14:55 128/75 120/69 92 03/15/19 14:46 120/69 03/15/19 13:43 160/76 H 03/15/19 13:20 03/15/19 13:00 03/15/19 12:40 03/15/19 12:20 03/15/19 12:00 03/15/19 11:40 03/15/19 11:20 03/15/19 11:00 03/15/19 10:40 03/15/19 10:21 03/15/19 10:01 03/15/19 09:50 03/15/19 08:14 128/75 92 Laboratory Results Laboratory Results - last 24 hr 03/15/19 03/15/19 07:58 07:58 PT 24.0 H INR 2.5 H Sodium 134 L Potassium 4.1 Chloride 101 Carbon Dioxide 23 Anion Gap 10.0 BUN 33 H Creatinine 4.04 H Est Cr Clr Drug Dosing 12.9 Est GFR ( Amer) 12.0 Est GFR (Non-Af Amer) 10.3 BUN/Creatinine Ratio 8.0 L Glucose 80 Calcium 8.9 Total Bilirubin 1.1 H AST 21 ALT 18 Alkaline Phosphatase 74 Total Protein 5.8 L Albumin 2.8 L Globulin 3.0 Albumin/Globulin Ratio 0.9 (1) Acute renal failure (ARF) Acute renal failure type: unspecified Qualified Code(s): N17.9 - Acute kidney failure, unspecified (2) HTN (hypertension) Hypertension type: essential hypertension Qualified Code(s): I10 - Essential (primary) hypertension
== END 2019-03-15 15:44 | DRG 853 ==
LOC: ED 04:26 → SUATTDRO 06:57 → 2S 06:57 → 2N 03-02 11:02

== ENCOUNTER 2019-04-20 16:41 | Inpatient (IN) ==
[2019-04-20] MEDS ORDERED: SODIUM CHLORIDE 0.9% 250 ML IV ONE (16:56)
[2019-04-20] MEDS ORDERED: MoRPHine SULFATE 2 MG/ML CARP IV STA (16:59)
[2019-04-20] MEDS ORDERED: ONDANSETRON INJ 2 MG/ML 2 ML VIAL IV STA (16:59)
[2019-04-20] MEDS ORDERED: PIPERACILL/TAZOBAC CONSULT ACTIVE PRN (17:03)
[2019-04-20] MEDS ORDERED: PIPERACILLIN/TAZOBACTAM 4.5 GM/120 ML BAG IV ONE (17:03)
[2019-04-20] MEDS ORDERED: DAPTOmycin 350 MG in SYRINGE 0 ML IV ONE (17:30)
[2019-04-20] MEDS ORDERED: CLINDAMYCIN 600 MG in DEXTROSE 5% 50 ML IV ONE (17:30)
--- NOTE | 2019-04-20 18:25 | XRay Report ---
XR chest 1V portable HISTORY: SEPSIS COMPARISON: Chest 03/05/2019. FINDINGS: No pneumothorax. No pleural effusions. There are low lung volumes. Prior cholecystectomy. L eft sided dual-chamber pacemaker. The heart remains mildly enlarged. There is mild central pulmonary vascular congestion without overt edema. This has improved in the interval. Right jugular dual-lumen catheter terminates at the proximal SVC. There is a right shoulder prosthesis. IMPRESSION: Cardiomegaly with interval improvement in the mild pulmonary vascular congestion. ACT 112: Negative or not required by law. Electronically signed by: Rajesh Medina M.D. 04/20/2019 6:24 PM
--- NOTE | 2019-04-20 18:40 | Emergency Department Note ---
Entered by Luz Yost acting as a scribe for Richard Adams MD History of Present Illness General Chief complaint: Skin Problem Stated complaint: WEAKNESS Time Seen by Provider: 04/20/19 16:48 Source: patient Mode of arrival: ambulatory History of Present Illness Provider complaint: skin sores Onset (ago): unknown Location: genitals (buttocks) Pain Consistency: + other (worsening) Maximum Pain Intensity: 10 Quality: + other (skin sores) Associated symptoms: + weakness and + other (Positive immobility; Negative urine production); no cough and no fever/chills Treatments prior to arrival: none The patient, who is a 74 year old female with a medical history of acute renal failure, congestive heart failure and sepsis, presents to the Emergency Room with complaints of skin ulcers that have been worsening. The patient states that after the completion of her scheduled dialysis treatment she was transferred to the ED. The patient states that nurses from her dialysis facility are concerned that the patient is not taking care of herself. The patient admits that she is having difficulty taking care of herself due to generalized weakness and immobility. The patient denies fever or cough. The patient states that she does not normally produce urine. The patient expresses that she treats the yeast under her breast with powder. The patient states that her Depends were changed yesterday. The patient relays that she lives at home and her . Home Medications Home Medications Medication Instructions Recorded Confirmed Type atorvastatin 20 mg PO QAM 06/15/18 04/20/19 History cholecalciferol (vitamin D3) 1,000 unit PO QAM 06/15/18 04/20/19 History [Vitamin D3] levetiracetam 500 mg PO BID 06/15/18 04/20/19 History omeprazole 20 mg PO QAM 06/15/18 04/20/19 History trazodone 50 mg PO HS PRN 06/15/18 04/20/19 History fexofenadine [Lulu Allergy] 180 mg PO DAILY PRN 09/18/18 04/20/19 History metoprolol tartrate 50 mg PO BID #60 tab 09/21/18 04/20/19 Rx brinzolamide-brimonidine 1 drp OPB BID 02/21/19 04/20/19 History prednisone 10 mg PO DAILY 02/21/19 04/20/19 History hydralazine 12.5 mg PO BID #30 tab 03/03/19 04/20/19 Rx amlodipine [Norvasc] 5 mg PO BID 04/20/19 04/20/19 History warfarin 1 mg PO QPM 04/20/19 04/20/19 History Allergies Allergy/AdvReac Type Severity Reaction Status Date / Time phenytoin Allergy Intermediate HIVES AND Verified 04/20/19 18:19 MOUTH ULCERS codeine AdvReac Mild VOMITTING Verified 04/20/19 18:19 Bactrim AdvReac Unknown "FEELS Verified 10/23/18 12:53 LIKE KNIVES ARE IN MY HEAD" hydrochlorothiazide AdvReac Unknown SEE COMMENT Verified 04/20/19 18:19 sulfamethoxazole AdvReac Unknown "FEELS Verified 04/20/19 18:19 LIKE KNIVES ARE IN MY HEAD" trimethoprim AdvReac Unknown "FEELS Verified 04/20/19 18:19 LIKE KNIVES ARE IN MY HEAD" Dust Allergy Mild SINUS Uncoded 04/20/19 18:19 INFECTIONS Past Med/Surg History Medical History Atrial fibrillation (Chronic) ON ELIQUIS Chronic sinusitis (Chronic) Exertional dyspnea GERD (gastroesophageal reflux disease) (Chronic) Glaucoma (Chronic) Hyperlipidemia (Chronic) Hypertension (Chronic) Neuropathy (Chronic) Osteoarthritis (Chronic) Seizure disorder (Chronic) single episode in 2005 Valvular heart disease (Chronic) MILD AR/MR/TR PER 07/2018 ECHO Surgical History History of bilateral tubal ligation (Chronic) History of cataract surgery (Chronic) B/L History of cholecystectomy (Chronic) History of dilatation and curettage (Chronic) History of tonsillectomy (Chronic) History of tooth extraction (Chronic) History of total shoulder replacement (Chronic) RIGHT REVERSE TOTAL SHOULDER S/P correction of deviated nasal septum (Chronic) S/P placement of cardiac pacemaker (Chronic) 09/18/18 Family History Other Breast cancer Social History Preferred Language: Romansh Communication Ability: Effective Visual Impairment: No Limitations Hearing Ability: Normal Insurance Attorney Required: No Beliefs That Will Affect Care: None marital status: Current Living Situation: Spouse current occupational status: retired Feels Safe at Home: Yes Smoking Status: Former smoker Tobacco Type: cigarettes ; packs per day: 0.5 ; Cigarettes Per Day: Smoked ~1/2 ppd x ~15 years (unsure) ; Second Hand Exposure: No ; Hx Alcohol Use: No Hx Substance Use: No Childhood Exposure to Second-Hand Smoke: No Review of Systems See HPI for pertinent positives & negatives. and A total of 10 systems reviewed and were otherwise negative Physical Exam Vital Signs Vital Signs - 24 hr 04/20/19 16:47 04/20/19 16:52 04/20/19 17:00 Temperature Temperature Source Pulse Rate 70 70 71 Pulse Rate from SpO2 Sensor Respiratory Rate 20 14 19 Respiratory Effort / Characteristics Respiratory Depth Respiratory Pattern Blood Pressure 128/61 Blood Pressure Mean 74 Blood Pressure Position Pulse Oximetry Oxygen Delivery Method Sepsis Recent Fever Within 48 Hours Sepsis New/Unexplained Change in Mental Status Sepsis Action Taken by Nursing 04/20/19 17:01 04/20/19 17:10 04/20/19 17:20 Temperature 36.6 C Temperature Source Oral Pulse Rate 72 70 70 Pulse Rate from SpO2 Sensor Respiratory Rate 20 22 17 Respiratory Effort / Characteristics Non-Labored Respiratory Depth Normal Respiratory Pattern Regular Blood Pressure 128/61 Blood Pressure Mean 83 Blood Pressure Position Lying Pulse Oximetry 92 Oxygen Delivery Method Room Air Sepsis Recent Fever Within 48 Hours No Sepsis New/Unexplained Change in Mental Status No Sepsis Action Taken by Nursing No Action Required 04/20/19 17:30 04/20/19 17:40 04/20/19 17:41 Temperature Temperature Source Pulse Rate 74 70 71 Pulse Rate from SpO2 Sensor Respiratory Rate 18 23 21 Respiratory Effort / Characteristics Respiratory Depth Respiratory Pattern Blood Pressure 121/55 L Blood Pressure Mean 66 Blood Pressure Position Pulse Oximetry 91 Oxygen Delivery Method Sepsis Recent Fever Within 48 Hours Sepsis New/Unexplained Change in Mental Status Sepsis Action Taken by Nursing 04/20/19 17:50 04/20/19 18:00 04/20/19 18:01 Temperature Temperature Source Pulse Rate 70 72 67 Pulse Rate from SpO2 Sensor Respiratory Rate 19 19 21 Respiratory Effort / Characteristics Respiratory Depth Respiratory Pattern Blood Pressure 112/42 L Blood Pressure Mean 62 Blood Pressure Position Pulse Oximetry 91 Oxygen Delivery Method Sepsis Recent Fever Within 48 Hours Sepsis New/Unexplained Change in Mental Status Sepsis Action Taken by Nursing 04/20/19 18:10 04/20/19 18:20 04/20/19 18:30 Temperature Temperature Source Pulse Rate 70 71 70 Pulse Rate from SpO2 Sensor Respiratory Rate 17 20 17 Respiratory Effort / Characteristics Respiratory Depth Respiratory Pattern Blood Pressure Blood Pressure Mean Blood Pressure Position Pulse Oximetry Oxygen Delivery Method Sepsis Recent Fever Within 48 Hours Sepsis New/Unexplained Change in Mental Status Sepsis Action Taken by Nursing 04/20/19 18:40 04/20/19 18:42 04/20/19 18:50 Temperature Temperature Source Pulse Rate 69 70 70 Pulse Rate from SpO2 Sensor Respiratory Rate 23 20 17 Respiratory Effort / Characteristics Respiratory Depth Respiratory Pattern Blood Pressure 126/55 L Blood Pressure Mean 77 Blood Pressure Position Pulse Oximetry Oxygen Delivery Method Sepsis Recent Fever Within 48 Hours Sepsis New/Unexplained Change in Mental Status Sepsis Action Taken by Nursing 04/20/19 19:00 04/20/19 19:01 04/20/19 19:10 Temperature Temperature Source Pulse Rate 70 70 70 Pulse Rate from SpO2 Sensor Respiratory Rate 14 19 17 Respiratory Effort / Characteristics Respiratory Depth Respiratory Pattern Blood Pressure 122/51 L Blood Pressure Mean 77 Blood Pressure Position Pulse Oximetry Oxygen Delivery Method Sepsis Recent Fever Within 48 Hours Sepsis New/Unexplained Change in Mental Status Sepsis Action Taken by Nursing 04/20/19 19:20 04/20/19 19:30 04/20/19 19:31 Temperature Temperature Source Pulse Rate 70 70 70 Pulse Rate from SpO2 Sensor 70 70 70 Respiratory Rate 20 19 18 Respiratory Effort / Characteristics Respiratory Depth Respiratory Pattern Blood Pressure 107/58 L Blood Pressure Mean 78 Blood Pressure Position Pulse Oximetry 93 90 98 Oxygen Delivery Method Sepsis Recent Fever Within 48 Hours Sepsis New/Unexplained Change in Mental Status Sepsis Action Taken by Nursing 04/20/19 19:40 04/20/19 19:50 Temperature Temperature Source Pulse Rate 70 70 Pulse Rate from SpO2 Sensor 70 70 Respiratory Rate 19 24 Respiratory Effort / Characteristics Respiratory Depth Respiratory Pattern Blood Pressure Blood Pressure Mean Blood Pressure Position Pulse Oximetry 99 90 Oxygen Delivery Method Sepsis Recent Fever Within 48 Hours Sepsis New/Unexplained Change in Mental Status Sepsis Action Taken by Nursing GENERAL: Patient is in mild distress. HEENT: No acute trauma, normocephalic atraumatic, mucous membranes dry, no nasal congestion, no scleral icterus. NECK: No stridor, no adenopathy, no meningismus, trachea is midline. LUNGS: Clear to auscultation bilaterally, no wheeze, no rhonchi, breath sounds equal. HEART: Without gallops or rubs, regular rate and rhythm. 2/6 systolic murmur. ABDOMEN: Soft, nontender, bowel sounds positive, no hernias, no peritonitis. EXTREMITIES: No cyanosis, full range of motion of all the joints without pain or difficulty, no signs for acute trauma, moderate bilateral pedal edema. BUTTOCK: Large, foul smelling, erythematous sacral and buttock ulcer with surrounding erythema. Lesion was adherent to the Depends. NEUROLOGIC: Oriented x 3, no acute motor or sensory deficits, no focal weakness. SKIN: Yeast rash under the left breast, no jaundice, no diaphoresis. Course Course 1648: Past medical records reviewed. The patient was evaluated in room C6. A complete history and physical exam was performed. 1846: I reassessed the patient and gave an update to her and her at bedside. Antibiotics are hanging. 1953: I [facility] the patient's [facility] He will evaluate the patient for further management. Consultations Consultation #1: I [facility] the patient's [facility] He will evaluate the patient for further management. Time: 19:54 Administered Medications Morphine Sulfate (Morphine Sulfate) 2 mg IV Q30M PRN PRN Reason: Pain Stop: 05/04/19 18:46 Last Admin: 04/20/19 19:25 Dose: 2 mg Documented by: [id number] Discontinued Medications Clindamycin Phosphate 600 mg/ (Dextrose) 54 mls @ 108 mls/hr IV ONE ONE Stop: 04/20/19 17:59 Last Infusion: 04/20/19 19:25 Dose: 0 mls/hr Documented by: [id number] Admin: 04/20/19 18:42 Dose: 108 mls/hr Documented by: [id number] Sodium Chloride (Nss) 250 mls @ 999 mls/hr IV .Q16M ONE Stop: 04/20/19 17:11 Last Infusion: 04/20/19 18:28 Dose: 0 mls/hr Documented by: [id number] Admin: 04/20/19 17:37 Dose: 999 mls/hr Documented by: [id number] Piperacillin Sod/Tazobactam Sod (Zosyn) 4.5 gm in 120 mls @ 240 mls/hr IV NOW ONE Stop: 04/20/19 17:32 Last Infusion: 04/20/19 19:25 Dose: 0 mls/hr Documented by: [id number] Admin: 04/20/19 18:45 Dose: 240 mls/hr Documented by: [id number] Daptomycin 350 mg/ Syringe 7 mls @ 0 mls/min IV ONE ONE; Protocol Stop: 04/20/19 17:31 Last Admin: 04/20/19 18:44 Dose: 7 mls/min Documented by: [id number] Morphine Sulfate (Morphine Sulfate) 2 mg IV NOW STA Stop: 04/20/19 17:00 Last Admin: 04/20/19 17:37 Dose: 2 mg Documented by: [id number] Ondansetron HCl (Zofran) 4 mg IV NOW STA Stop: 04/20/19 17:00 Last Admin: 04/20/19 17:37 Dose: 4 mg Documented by: [id number] Critical Care Time Critical Care Time: Yes Total Critical Care Time: 32 I have personally spent about 32 minutes of critical care time in the direct management of this patient. This includes bedside care, interpretation of diagnostic studies, and testing, discussion with consultants, patient, and family members, and other required patient management activities. This 32 minutes is in excess of all separately billable procedures. Medical Decision Making Differential Diagnosis Differential diagnosis includes: sacral ulcer, sacral cellulitis, gangrene, sepsis, bacteremia, osteomyelitis, electrolyte imbalance, diabilitation, as well as others were entertained. Medical Records Attestation: I reviewed the patient's medical records. Home Medications Current Medication List: was personally reviewed by me Laboratory Data Attestation: I reviewed the patient's lab results. Result diagrams: 04/20/19 18:48 04/20/19 18:48 Lab Results 04/20/19 04/20/19 04/20/19 Range/Units 17:21 18:47 18:48 WBC (4.8-10.8) K/uL RBC (4.2-5.4) M/uL Hgb (12.0-16.0) g/dL Hct (37-47) % MCV (80-100) fL MCH (25-34) pg MCHC (32-36) g/dL RDW Std Deviation (36.4-46.3) fL RDW Coeff of Allan (11.5-14.5) % Plt Count (130-400) K/uL MPV (7.4-10.4) fL Immature Gran % (Auto) % Neut % (Auto) % Lymph % (Auto) % [place] % (Auto) % Eos % (Auto) % Baso % (Auto) % Immature Gran # (Auto) (0.00-0.02) K/uL Neut # (Auto) (1.4-6.5) K/uL Lymph # (Auto) (1.2-3.4) K/uL [place] # (Auto) (0.11-0.59) K/uL Eos # (Auto) (0-0.5) K/uL Baso # (Auto) (0-0.2) K/uL Echinocytes PT Cancelled INR Cancelled APTT Cancelled PTT Ratio Cancelled Sodium (136-145) mmol/L Potassium (3.5-5.1) mmol/L Chloride (98-107) mmol/L Carbon Dioxide (21-32) mmol/L Anion Gap (3-11) BUN (7-18) mg/dl Creatinine (0.6-1.2) mg/dl Est Cr Clr Drug Dosing ml/min Est GFR ( Amer) Est GFR (Non-Af Amer) BUN/Creatinine Ratio (10-20) Glucose (70-99) mg/dl Osmolality (280-300) mOsm/kg Lactate 2.6 H* (0.4-2.0) mmol/L Calcium (8.5-10.1) mg/dl Magnesium (1.8-2.4) mg/dl Total Bilirubin (0.2-1) mg/dl AST (15-37) U/L ALT (12-78) U/L Alkaline Phosphatase (45-117) U/L Troponin I (0-0.045) ng/ml Total Protein (6.4-8.2) gm/dl Albumin (3.4-5.0) gm/dl Globulin (2.5-4.0) gm/dl Albumin/Globulin Ratio (0.9-2) Procalcitonin 99.47 H (0-0.5) ng/ml TSH (0.300-4.500) uIu/ml 04/20/19 04/20/19 04/20/19 Range/Units 18:48 18:48 18:48 WBC 19.58 H (4.8-10.8) K/uL RBC 3.87 L (4.2-5.4) M/uL Hgb 10.4 L (12.0-16.0) g/dL Hct 32.4 L (37-47) % MCV 83.7 (80-100) fL MCH 26.9 (25-34) pg MCHC 32.1 (32-36) g/dL RDW Std Deviation 55.0 H (36.4-46.3) fL RDW Coeff of Allan 17.8 H (11.5-14.5) % Plt Count 213 (130-400) K/uL MPV 9.9 (7.4-10.4) fL Immature Gran % (Auto) 0.4 % Neut % (Auto) 94.2 % Lymph % (Auto) 2.3 % [place] % (Auto) 3.0 % Eos % (Auto) 0.0 % Baso % (Auto) 0.1 % Immature Gran # (Auto) 0.08 H (0.00-0.02) K/uL Neut # (Auto) 18.45 H (1.4-6.5) K/uL Lymph # (Auto) 0.45 L (1.2-3.4) K/uL [place] # (Auto) 0.59 (0.11-0.59) K/uL Eos # (Auto) 0.00 (0-0.5) K/uL Baso # (Auto) 0.01 (0-0.2) K/uL Echinocytes 1+ PT INR APTT PTT Ratio Sodium 129 L (136-145) mmol/L Potassium 3.1 L (3.5-5.1) mmol/L Chloride 91 L (98-107) mmol/L Carbon Dioxide 27 (21-32) mmol/L Anion Gap 11.0 (3-11) BUN 26 H (7-18) mg/dl Creatinine 3.05 H (0.6-1.2) mg/dl Est Cr Clr Drug Dosing 14.4 ml/min Est GFR ( Amer) 16.8 Est GFR (Non-Af Amer) 14.5 BUN/Creatinine Ratio 8.4 L (10-20) Glucose 98 (70-99) mg/dl Osmolality 271 L (280-300) mOsm/kg Lactate (0.4-2.0) mmol/L Calcium 7.8 L (8.5-10.1) mg/dl Magnesium 1.7 L (1.8-2.4) mg/dl Total Bilirubin 1.3 H (0.2-1) mg/dl AST 44 H (15-37) U/L ALT 27 (12-78) U/L Alkaline Phosphatase 190 H (45-117) U/L Troponin I 0.046 H* (0-0.045) ng/ml Total Protein 5.6 L (6.4-8.2) gm/dl Albumin 2.1 L (3.4-5.0) gm/dl Globulin 3.5 (2.5-4.0) gm/dl Albumin/Globulin Ratio 0.6 L (0.9-2) Procalcitonin (0-0.5) ng/ml TSH 2.240 (0.300-4.500) uIu/ml 04/20/19 Range/Units 19:09 WBC (4.8-10.8) K/uL RBC (4.2-5.4) M/uL Hgb (12.0-16.0) g/dL Hct (37-47) % MCV (80-100) fL MCH (25-34) pg MCHC (32-36) g/dL RDW Std Deviation (36.4-46.3) fL RDW Coeff of Allan (11.5-14.5) % Plt Count (130-400) K/uL MPV (7.4-10.4) fL Immature Gran % (Auto) % Neut % (Auto) % Lymph % (Auto) % [place] % (Auto) % Eos % (Auto) % Baso % (Auto) % Immature Gran # (Auto) (0.00-0.02) K/uL Neut # (Auto) (1.4-6.5) K/uL Lymph # (Auto) (1.2-3.4) K/uL [place] # (Auto) (0.11-0.59) K/uL Eos # (Auto) (0-0.5) K/uL Baso # (Auto) (0-0.2) K/uL Echinocytes PT INR APTT PTT Ratio Sodium (136-145) mmol/L Potassium (3.5-5.1) mmol/L Chloride (98-107) mmol/L Carbon Dioxide (21-32) mmol/L Anion Gap (3-11) BUN (7-18) mg/dl Creatinine (0.6-1.2) mg/dl Est Cr Clr Drug Dosing ml/min Est GFR ( Amer) Est GFR (Non-Af Amer) BUN/Creatinine Ratio (10-20) Glucose (70-99) mg/dl Osmolality (280-300) mOsm/kg Lactate 1.7 (0.4-2.0) mmol/L Calcium (8.5-10.1) mg/dl Magnesium (1.8-2.4) mg/dl Total Bilirubin (0.2-1) mg/dl AST (15-37) U/L ALT (12-78) U/L Alkaline Phosphatase (45-117) U/L Troponin I (0-0.045) ng/ml Total Protein (6.4-8.2) gm/dl Albumin (3.4-5.0) gm/dl Globulin (2.5-4.0) gm/dl Albumin/Globulin Ratio (0.9-2) Procalcitonin (0-0.5) ng/ml TSH (0.300-4.500) uIu/ml Imaging Data Radiologist's Impression: Radiology results as stated below per my review and the radiologist's interpretation: XR chest 1V portable HISTORY: SEPSIS COMPARISON: Chest 03/05/2019. FINDINGS: No pneumothorax. No pleural effusions. There are low lung volumes. Pr ior cholecystectomy. Left sided dual-chamber pacemaker. The heart remains mildly enlarged. There is mild central pulmonary vascular congestion without overt edema. This has improved in the interval. Right jugular dual-lumen catheter terminates at the proximal SVC. There is a right shoulder prosthesis. IMPRESSION: Cardiomegaly with interval improvement in the mild pulmonary vascular congestion. ACT 112: Negative or not required by law. Electronically signed by: Rajesh Medina M.D. 04/20/2019 6:24 PM ECG Data Attestation: I personally reviewed and interpreted this ECG as follows: Indication: + weakness Rate (beats per minute): 76 Rhythm: + other (Ventricular pacemaker) ECG ST segments: no ST depression ECG Findings: + Other (Baseline artifact present; QTC 580); no PVCs Blood Pressure Blood Pressure Findings: Elevated blood pressure Blood Pressure Disposition: further management by hospitalist MDM Narrative There is a significant leukocytosis at 19.5. This is consistent with infection. The patient is anemic but this is baseline for her. Platelet count was normal. Renal panel testing does show the need for dialysis with a high creatinine, this is expected. No concerning electrolyte abnormality requiring correction. Lactic acid level was elevated at 2.6, this is consistent with infection. Procalcitonin was quite elevated. TSH was normal. Alk phos was el evated, the bilirubin was slightly high. The AST was slightly high. EKG showed a functioning ventricular pacemaker, no obvious ischemia. Cardiac troponin was slightly elevated, this is baseline for the patient. INR was quite elevated at over 9, luckily, the patient is not actively bleeding. Chest film did not show pneumonia or CHF. On exam, the patient had a large sacral ulcer with a foul sm ell and surrounding erythema consistent with cellulitis/infection. This area was quite sore to touch. Abdominal and pelvis CT is currently pending. This study was done to help evaluate the extent of the sacral/buttock wound. The patient was aggressively managed. She was given 3 different types of antibiotics. She was given IV clindamycin, IV daptomycin and IV Zosyn. She received a small 250 cc saline bolus. She received IV morphine for pain, a second dose was given IV. She was given IV Zofran for nausea. The patient requires a hospital stay for this infection. I did speak to the pat ient and case management. The on-call hospitalist was consulted. Impression & Plan Cellulitis, Sacral ulcer, Wound infection, Weakness, Leukocytosis Discharge Plan Visit Data Chief Complaint: Skin Problem Stated Complaint: WEAKNESS ED Provider: Richard Adams Discharge Problem: Cellulitis, Sacral ulcer, Wound infection, Weakness, Leukocytosis Patient Disposition: Being Evaluated by Hospitalist Forms Stand Alone Forms: My [facility] Prescriptions Prescriptions: No Action fexofenadine [Lulu Allergy] 180 mg Tablet 180 mg PO DAILY PRN (Reason: Allergy Symptoms) RF: 0 metoprolol tartrate 50 mg Tablet 50 mg PO BID Qty: 60 RF: 0 amlodipine [Norvasc] 5 mg tablet 5 mg PO BID RF: 0 warfarin 1 mg tablet 1 mg PO QPM RF: 0 atorvastatin 20 mg Tablet 20 mg PO QAM RF: 0 trazodone 50 mg Tablet 50 mg PO HS PRN (Reason: Sleep) RF: 0 levetiracetam 500 mg Tablet 500 mg PO BID RF: 0 cholecalciferol (vitamin D3) [Vitamin D3] 1,000 unit Capsule 1,000 unit PO QAM RF: 0 omeprazole 20 mg Tablet,Delayed Release (Dr/Ec) 20 mg PO QAM RF: 0 prednisone 10 mg tablet 10 mg PO DAILY RF: 0 brinzolamide-brimonidine 1-0.2 % Drops,Suspension 1 drp OPB BID RF: 0 hydralazine 25 mg tablet 12.5 mg PO BID Qty: 30 RF: 0 Referrals Referrals: Wilfredo Liang MD [Primary Care Provider] - Discharge Problem: Cellulitis Qualifiers: Site of cellulitis: buttock Qualified Code(s): L03.317 - Cellulitis of buttock Sacral ulcer Qualifiers: Non-pressure ulcer stage: limited to breakdown of skin Qualified Code(s): L98.421 - Non-pressure chronic ulcer of back limited to breakdown of skin Leukocytosis Qualifiers: Leukocytosis type: unspecified Qualified Code(s): D72.829 - Elevated white blood cell count, unspecified The scribe's documentation has been prepared under my direction and personally reviewed by me in its entirety. I confirm that the note above accurately reflects all work, treatment, procedures, and medical decision making performed by me.
[2019-04-20] MEDS ORDERED: MoRPHine SULFATE 2 MG/ML CARP IV PRN (18:47)
[2019-04-20 19:25] LABS: Hematocrit (blood only) 32.4 % (37-47); Hemoglobin 10.4 g/dL (12.0-16.0); Mean Corpuscular Hemoglobin 26.9 pg (25-34); Mean Corpuscular Hgb Conc 32.1 g/dL (32-36); Mean Corpuscular Volume 83.7 fL (80-100); Mean Platelet Volume 9.9 fL (7.4-10.4); Platelet Count 213 K/uL (130-400); RDW Coefficient of Variation 17.8 % (11.5-14.5); Red Blood Count 3.87 M/uL (4.2-5.4); White Blood Count 19.58 K/uL (4.8-10.8)
[2019-04-20 19:50] LABS: Albumin Level 2.1 gm/dl (3.4-5.0); BUN Creatinine Ratio 8.4 (10-20); Calcium 7.8 mg/dl (8.5-10.1); Creatinine Clr Calc Pharmacy 14.4 ml/min; Est GFR (African American) 16.8; Est GFR (Non-African American) 14.5; Magnesium 1.7 mg/dl (1.8-2.4); Potassium 3.1 mmol/L (3.5-5.1)
[2019-04-20 19:53] LABS: Basophils # (auto) 0.01 K/uL (0-0.2); Basophils % (auto) 0.1 %; Echinocytes 1+; Immature Granulocytes # (auto) 0.08 K/uL (0.00-0.02); Immature Granulocytes % (auto) 0.4 %; Lymphocytes # (auto) 0.45 K/uL (1.2-3.4); Lymphocytes % (auto) 2.3 %; Monocytes # (auto) 0.59 K/uL (0.11-0.59); Neutrophils # (auto) 18.45 K/uL (1.4-6.5); Neutrophils % (auto) 94.2 %
[2019-04-20] MEDS ORDERED: POTASSIUM CHLORIDE 20 MEQ TABCR PO STA (20:00)
[2019-04-20 20:06] LABS: Albumin Globulin Ratio 0.6 (0.9-2); Bilirubin,Total 1.3 mg/dl (0.2-1); Globulin 3.5 gm/dl (2.5-4.0); Total Protein 5.6 gm/dl (6.4-8.2); Troponin I 0.046 ng/ml (0-0.045)
[2019-04-20 20:26] LABS: Thyroid Stimulating Hormone 2.24 uIu/ml (0.300-4.500)
[2019-04-20 20:26] LABS: Partial Thromboplastin Ratio 2.8; Prothrombin Time 81.7 Seconds (9.0-12.0)
[2019-04-20 20:35] LABS: INR 9.4 (0.9-1.1); Partial Thromboplastin Time 75.2 Seconds (21.0-31.0)
--- NOTE | 2019-04-20 21:12 | History & Physical Report ---
Date of Service April 20, 2019 Assessment & Plan (1) Sacral decubitus ulcer: Gross infection Possible sepsis Immunocompromised patient, chronic steroid Rx for osteoarthritis chronic diastolic heart failure (EF 60 to 65%, TTE 2019), equivocal volume status Hyponatremia SSS status post PPM on Coumadin, INR supratherapeutic hypertension, BP on the lower side hyperlipidemia on statin Rx ESRD on HD past tobacco abuse pituitary tumor status post surgery seizure disorder, stable on Keppra chronic anemia secondary to ESRD, hemoglobin at baseline Hyperglycemia likely steroid-induced rule out DM Functional disability Medical telemetry given pulmonary congestion and hyponatremia CS, Daptomycin, Zosyn for now Wound care provider inpatient consult RE follow-up eval for worsening sacral decubitus wound Nephrology consult RE dialysis management Check hemoglobin A1c PT OT eval Social service RE discharge planning DVT prophylaxis. Coumadin INR goal between 2 and 3 Full code History of Present Illness Chief Complaint: Worsening back wound Primary Care Provider: Wilfredo Liang MD History obtained from patient and records. Medical history significant for chronic diastolic heart failure (EF 60 to 65%, TTE 2019), VHD (severe MR/TR mild AR), pulmonary hypertension as per records, SSS status post PPM on Coumadin, hypertension, hyperlipidemia, ESRD on HD, chronic arthritis on prednisone, past tobacco abuse, pituitary tumor status post surgery, history of seizure disorder, chronic anemia (baseline hemoglobin 9-10) Recent confinement February 21-2018 sepsis secondary to pneumonia. Hemodialysis initiated during confinement. During confinement, stage III pressure sacral ulcer noted. Onset of sacral wound around October 2018 after possible shingles rash as per documentation. Patient discharged to [facility] for rehab from the hospital. Patient discharged home 04/02/2019. Stage II pressure sore on the sacrum with weeping serous fluid and blisters as per home health nurse exam last week. Limited mobility at home as per records with patient spending most of her time on the recliner. not able to clean wound as well, especially problematic when patient has a bowel movement soiling sacral wound. Worsening sacral wound as per patient the last week with generalized weakness, poor appetite.. No fever, no chills. No chest pain. Usual shortness of breath. No cough symptoms. Patient requested to be brought to ER for further evaluation of wound. Patient also feels her is not able to take care of her anymore. At the ER, patient received daptomycin, Zosyn, and clindamycin for wound infection. 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 Allergies Allergy/AdvReac Type Severity Reaction Status Date / Time phenytoin Allergy Intermediate HIVES AND Verified 04/20/19 18:19 MOUTH ULCERS codeine AdvReac Mild VOMITTING Verified 04/20/19 18:19 Bactrim AdvReac Unknown "FEELS Verified 10/23/18 12:53 LIKE KNIVES ARE IN MY HEAD" hydrochlorothiazide AdvReac Unknown SEE COMMENT Verified 04/20/19 18:19 sulfamethoxazole AdvReac Unknown "FEELS Verified 04/20/19 18:19 LIKE KNIVES ARE IN MY HEAD" trimethoprim AdvReac Unknown "FEELS Verified 04/20/19 18:19 LIKE KNIVES ARE IN MY HEAD" Dust Allergy Mild SINUS Uncoded 04/20/19 18:19 INFECTIONS Home Medications Home Medications Medication Instructions Recorded Confirmed Type atorvastatin 20 mg PO QAM 06/15/18 04/20/19 History cholecalciferol (vitamin D3) 1,000 unit PO QAM 06/15/18 04/20/19 History [Vitamin D3] levetiracetam 500 mg PO BID 06/15/18 04/20/19 History omeprazole 20 mg PO QAM 06/15/18 04/20/19 History trazodone 50 mg PO HS PRN 06/15/18 04/20/19 History fexofenadine [Lulu Allergy] 180 mg PO DAILY PRN 09/18/18 04/20/19 History metoprolol tartrate 50 mg PO BID #60 tab 09/21/18 04/20/19 Rx brinzolamide-brimonidine 1 drp OPB BID 02/21/19 04/20/19 History prednisone 10 mg PO DAILY 02/21/19 04/20/19 History hydralazine 12.5 mg PO BID #30 tab 03/03/19 04/20/19 Rx amlodipine [Norvasc] 5 mg PO BID 04/20/19 04/20/19 History warfarin 1 mg PO QPM 04/20/19 04/20/19 History Past Med/Surg History Medical History Atrial fibrillation (Chronic) ON ELIQUIS Chronic sinusitis (Chronic) Exertional dyspnea GERD (gastroesophageal reflux disease) (Chronic) Glaucoma (Chronic) Hyperlipidemia (Chronic) Hypertension (Chronic) Neuropathy (Chronic) Osteoarthritis (Chronic) Seizure disorder (Chronic) single episode in 2005 Valvular heart disease (Chronic) MILD AR/MR/TR PER 07/2018 ECHO Surgical History History of bilateral tubal ligation (Chronic) History of cataract surgery (Chronic) B/L History of cholecystectomy (Chronic) History of dilatation and curettage (Chronic) History of tonsillectomy (Chronic) History of tooth extraction (Chronic) History of total shoulder replacement (Chronic) RIGHT REVERSE TOTAL SHOULDER S/P correction of deviated nasal septum (Chronic) S/P placement of cardiac pacemaker (Chronic) 09/18/18 Family History Other Breast cancer Social History Preferred Language: Armenian Communication Ability: Effective Visual Impairment: No Limitations Hearing Ability: Normal Enterprise Architect Required: No Beliefs That Will Affect Care: None marital status: Current Living Situation: Spouse current occupational status: retired Feels Safe at Home: Yes Smoking Status: Former smoker Tobacco Type: cigarettes ; packs per day: 0.5 ; Cigarettes Per Day: Smoked ~1/2 ppd x ~15 years (unsure) ; Second Hand Exposure: No ; Hx Alcohol Use: No Hx Substance Use: No Childhood Exposure to Second-Hand Smoke: No Review of Systems Review of Systems: As per HPI, all 10 systems reviewed, all other ROS negative Physical Exam Physical Exam: GENERAL: uncomfortable, anxious, no respiratory distress SKIN: Pallor , warm HEENT: Pale palpebral conjunctivae, no ptosis, dry buccal mucosa NECK : Supple, no tenderness CHEST : CTA, no tenderness HEART : RRR, systolic murmur ABDOMEN: Some distention, nontender BACK ; ulcerated wound, sacrum with foul-smelling drainage; minimal low back tenderness EXTREMITIES : Minimal LE swelling, no LE tenderness, no other conspicuous deformities noted NEUROLOGIC : Coherent, no facial asymmetry, intention tremors, no other gross focality Results & Data Vital Signs (Past 12 Hours) Vital Signs Temp Pulse Resp BP Pulse Ox 04/20/19 20:44 71 18 115/62 93 04/20/19 20:41 80 17 04/20/19 20:10 70 17 100 04/20/19 20:01 70 21 94 04/20/19 20:00 70 12 112/49 L 97 04/20/19 19:50 70 24 90 04/20/19 19:40 70 19 99 04/20/19 19:31 70 18 98 04/20/19 19:30 70 19 107/58 L 90 04/20/19 19:20 70 20 93 04/20/19 19:10 70 17 04/20/19 19:01 70 19 04/20/19 19:00 70 14 122/51 L 04/20/19 18:50 70 17 04/20/19 18:42 70 20 126/55 L 04/20/19 18:40 69 23 04/20/19 18:30 70 17 04/20/19 18:20 71 20 04/20/19 18:10 70 17 04/20/19 18:01 67 21 112/42 L 91 04/20/19 18:00 72 19 04/20/19 17:50 70 19 04/20/19 17:41 71 21 121/55 L 91 04/20/19 17:40 70 23 04/20/19 17:30 74 18 04/20/19 17:20 70 17 04/20/19 17:10 70 22 04/20/19 17:01 36.6 C 72 20 128/61 92 04/20/19 17:00 71 19 04/20/19 16:52 70 14 04/20/19 16:47 70 20 128/61 Laboratory Results Laboratory Results WBC 19.58 K/uL (4.8-10.8) H 04/20/19 18:48 RBC 3.87 M/uL (4.2-5.4) L 04/20/19 18:48 Hgb 10.4 g/dL (12.0-16.0) L 04/20/19 18:48 Hct 32.4 % (37-47) L 04/20/19 18:48 MCV 83.7 fL (80-100) 04/20/19 18:48 MCH 26.9 pg (25-34) 04/20/19 18:48 MCHC 32.1 g/dL (32-36) 04/20/19 18:48 RDW Std Deviation 55.0 fL (36.4-46.3) H 04/20/19 18:48 RDW Coeff of Allan 17.8 % (11.5-14.5) H 04/20/19 18:48 Plt Count 213 K/uL (130-400) 04/20/19 18:48 MPV 9.9 fL (7.4-10.4) 04/20/19 18:48 Immature Gran % (Auto) 0.4 % 04/20/19 18:48 Neut % (Auto) 94.2 % 04/20/19 18:48 Lymph % (Auto) 2.3 % 04/20/19 18:48 [place] % (Auto) 3.0 % 04/20/19 18:48 Eos % (Auto) 0.0 % 04/20/19 18:48 Baso % (Auto) 0.1 % 04/20/19 18:48 Immature Gran # (Auto) 0.08 K/uL (0.00-0.02) H 04/20/19 18:48 Neut # (Auto) 18.45 K/uL (1.4-6.5) H 04/20/19 18:48 Lymph # (Auto) 0.45 K/uL (1.2-3.4) L 04/20/19 18:48 [place] # (Auto) 0.59 K/uL (0.11-0.59) 04/20/19 18:48 Eos # (Auto) 0.00 K/uL (0-0.5) 04/20/19 18:48 Baso # (Auto) 0.01 K/uL (0-0.2) 04/20/19 18:48 Echinocytes 1+ 04/20/19 18:48 PT 81.7 Seconds (9.0-12.0) H 04/20/19 19:09 INR 9.4 (0.9-1.1) H* 04/20/19 19:09 APTT 75.2 Seconds (21.0-31.0) H* 04/20/19 19:09 PTT Ratio 2.8 04/20/19 19:09 Sodium 129 mmol/L (136-145) L 04/20/19 18:48 Potassium 3.1 mmol/L (3.5-5.1) L 04/20/19 18:48 Chloride 91 mmol/L (98-107) L 04/20/19 18:48 Carbon Dioxide 27 mmol/L (21-32) 04/20/19 18:48 Anion Gap 11.0 (3-11) 04/20/19 18:48 BUN 26 mg/dl (7-18) H 04/20/19 18:48 Creatinine 3.05 mg/dl (0.6-1.2) H 04/20/19 18:48 Est Cr Clr Drug Dosing 14.4 ml/min 04/20/19 18:48 Est GFR ( Amer) 16.8 04/20/19 18:48 Est GFR (Non-Af Amer) 14.5 04/20/19 18:48 BUN/Creatinine Ratio 8.4 (10-20) L 04/20/19 18:48 Glucose 98 mg/dl (70-99) 04/20/19 18:48 Osmolality 271 mOsm/kg (280-300) L 04/20/19 18:48 Lactate 1.7 mmol/L (0.4-2.0) 04/20/19 19:09 Calcium 7.8 mg/dl (8.5-10.1) L 04/20/19 18:48 Magnesium 1.7 mg/dl (1.8-2.4) L 04/20/19 18:48 Total Bilirubin 1.3 mg/dl (0.2-1) H 04/20/19 18:48 AST 44 U/L (15-37) H 04/20/19 18:48 ALT 27 U/L (12-78) 04/20/19 18:48 Alkaline Phosphatase 190 U/L (45-117) H 04/20/19 18:48 Troponin I 0.046 ng/ml (0-0.045) H* 04/20/19 18:48 Total Protein 5.6 gm/dl (6.4-8.2) L 04/20/19 18:48 Albumin 2.1 gm/dl (3.4-5.0) L 04/20/19 18:48 Globulin 3.5 gm/dl (2.5-4.0) 04/20/19 18:48 Albumin/Globulin Ratio 0.6 (0.9-2) L 04/20/19 18:48 Procalcitonin 99.47 ng/ml (0-0.5) H 04/20/19 18:48 TSH 2.240 uIu/ml (0.300-4.500) 04/20/19 18:48 Diagnostic Findings Chest x-ray : Cardiomegaly with interval improvement in the mild pulmonary vascular congestion. EKG as per my interpretation : Rate 75, paced rhythm, PVCs CT abdomen pelvis: 1. Moderate subcutaneous edema within the right posterior abdominal wall and left flank. This could be due to prior soft tissue contusion. 2. Mild subcutaneous edema/fat stranding at the level the sacrum. However, no definite soft tissue ulceration or underlying bony destruction to suggest osteomyelitis. 3. Small bilateral pleural effusions persist. 4. Mild congestive change on the background of chronic interstitial thickening. This has improved. 5. Cholecystectomy. 6. No definite bowel wall thickening or obstruction. 7. Mild ileus. 8. Mildly distended bladder.
[2019-04-20] MEDS ORDERED: ALBUT/IPRATROP 3MG/0.5MG NEB 3 ML VIAL NEB STA (21:20)
--- NOTE | 2019-04-20 21:24 | CT Scan Report ---
ABDOMEN AND PELVIS CT WITHOUT CONTRAST CT DOSE: 639.53 mGy.cm HISTORY: eval the sacrum/buttock for deep wound infection TECHNIQUE: Multiaxial CT images of the abdomen and pelvis were performed without contrast. A dose lo wering technique was utilized adhering to the principles of ALARA. COMPARISON STUDY: Abdomen and pelvis CT 03/03/2019. FINDINGS: Pacemaker wires are noted. Small bilateral pleural effusions persist. Mild interlobular sep enzo thickening within the lung bases as well as mild interstitial thickening. This favors mild conges tive change on the background of chronic interstitial thickening. No pneumoperitoneum. No pneumatosis . No suspicious lytic or blastic osseous lesions. No destructive lesion seen within the sacrum to sug gest osteomyelitis. Moderate subcutaneous edema within the right posterior abdominal wall and left fl ank. There is mild subcutaneous fat stranding/edema at the sacrum. However, there is no soft tissue u lceration or abscess identified. Cholecystectomy. The unenhanced liver, spleen, adrenal glands, and k idneys are unremarkable. No renal or ureteral stones. No hydronephrosis. No retroperitoneal lymphaden opathy. Mild calcified plaque within the normal caliber abdominal aorta. The uterus and adnexa are un remarkable. The bladder is mildly distended. No bladder wall thickening. Colonic diverticulosis. No b owel wall thickening or obstruction. A few mildly dilated gas and fluid-filled loops of large and sma ll bowel. No transition point identified. This favors a mild ileus. Normal appendix. IMPRESSION: 1. Moderate subcutaneous edema within the right posterior abdominal wall and left flank. This could b e due to prior soft tissue contusion. 2. Mild subcutaneous edema/fat stranding at the level the sacrum. However, no definite soft tissue ul ceration or underlying bony destruction to suggest osteomyelitis. 3. Small bilateral pleural effusions persist. 4. Mild congestive change on the background of chronic interstitial thickening. This has improved. 5. Cholecystectomy. 6. No definite bowel wall thickening or obstruction. 7. Mild ileus. 8. Mildly distended bladder. ACT 112: Negative or not required by law. Electronically signed by: Rajesh Medina M.D. 04/20/2019 9:23 PM
[2019-04-20] MEDS ORDERED: ALBUMIN 25% 50 ML IV ONE (21:35)
[2019-04-20] MEDS ORDERED: PHYTONADIONE 5 MG TAB PO STA (21:37)
[2019-04-20] MEDS ORDERED: TRAZODONE HCL 50 MG TAB PO PRN (22:07)
[2019-04-20] MEDS ORDERED: NITROGLYCERIN SL 0.4 MG/TAB TAB SL PRN (22:07)
[2019-04-20] MEDS ORDERED: ACETAMINOPHEN 325 MG TAB PO PRN (22:07)
[2019-04-20] MEDS ORDERED: MAGNESIUM SULFATE / D5W 1 GM/100 ML BAG IV ONE (23:00)
[2019-04-20] MEDS: AMLODIPINE BESYLATE 5 MG TAB PO SCH (23:19)
[2019-04-20] MEDS ORDERED: MICONAZOLE NITRATE POWDER 43 GM EXT PRN (23:19)
[2019-04-20] MEDS: levETIRAcetam 500 MG TAB PO SCH (23:20)
[2019-04-20] MEDS: OXYCODONE HCL IR 5 MG TAB (IMMEDIATE RELEASE) PO PRN (23:30)
[2019-04-21] MEDS ORDERED: DAPTOMYCIN CONSULT ACTIVE PRN (00:23)
[2019-04-21] MEDS: PIPERACILLIN/TAZOBACTAM 3.375 GM in DEXTROSE 5% 100 ML IV SCH ×2 (02:24→14:12)
[2019-04-21] MEDS: OXYCODONE HCL IR 5 MG TAB (IMMEDIATE RELEASE) PO PRN (05:39)
[2019-04-21 05:55] LABS: Basophils # (auto) 0.01 K/uL (0-0.2); Basophils % (auto) 0.1 %; Eosinophils # (auto) 0.05 K/uL (0-0.5); Eosinophils % (auto) 0.3 %; Hematocrit (blood only) 33.9 % (37-47); Hemoglobin 10.6 g/dL (12.0-16.0); Immature Granulocytes # (auto) 0.08 K/uL (0.00-0.02); Immature Granulocytes % (auto) 0.4 %; Lymphocytes # (auto) 1.01 K/uL (1.2-3.4); Lymphocytes % (auto) 5.5 %; Mean Corpuscular Hemoglobin 26.8 pg (25-34); Mean Corpuscular Hgb Conc 31.3 g/dL (32-36); Mean Corpuscular Volume 85.6 fL (80-100); Mean Platelet Volume 9.3 fL (7.4-10.4); Monocytes # (auto) 1.16 K/uL (0.11-0.59); Monocytes % (auto) 6.3 %; Neutrophils % (auto) 87.4 %; Nucleated RBC # (auto) 0.02 K/uL (0-0); Nucleated RBC % (auto) 0.1 %; Platelet Count 194 K/uL (130-400); RDW Coefficient of Variation 17.7 % (11.5-14.5); Red Blood Count 3.96 M/uL (4.2-5.4); White Blood Count 18.41 K/uL (4.8-10.8)
[2019-04-21 06:14] LABS: BUN Creatinine Ratio 8.6 (10-20); Calcium 7.8 mg/dl (8.5-10.1); Creatinine Clr Calc Pharmacy 15.5 ml/min; Est GFR (African American) 15.4; Est GFR (Non-African American) 13.3; Magnesium 2.1 mg/dl (1.8-2.4)
[2019-04-21 06:18] LABS: Prothrombin Time 63.4 Seconds (9.0-12.0)
[2019-04-21 06:30] LABS: Echinocytes 1+; INR 7.1 (0.9-1.1); Polychromasia 1+; Schistocytes Occasional
[2019-04-21] MEDS ORDERED: PHYTONADIONE 5 MG TAB PO STA (06:45)
[2019-04-21] MEDS: levETIRAcetam 500 MG TAB PO SCH ×2 (07:24→20:14)
[2019-04-21] MEDS: predniSONE 10 MG TABLET PO SCH (07:24)
[2019-04-21] MEDS: AMLODIPINE BESYLATE 5 MG TAB PO SCH ×2 (07:24→20:14)
[2019-04-21] MEDS: METOPROLOL TARTRATE 50 MG TAB PO SCH ×2 (07:25→20:14)
--- NOTE | 2019-04-21 12:40 | Nephrology Consultation ---
Date of Consultation April 21, 2019 Assessment & Plan (1) ESRD (end stage renal disease) on dialysis: unfortunately no renal recovery since NADIA in February and now esrd w/ oligoanuria -HD tomorrow per routine -hyponatremia reflects mild chronic volume overload for her -daily bmp -agree w/ 2L FR for now while she is on clears; ? rationale for clears Present on Admission?: Yes (2) Anemia of chronic disease: check hgb q24-48 hrs; has been stable in 10-11s -epo and as needed iron w/ HD Present on Admission?: Yes (3) Sacral decubitus ulcer: per primary service and wound team Present on Admission?: Yes History of Present Illness Reason for Consultation: ESRD on dialysis Requesting Physician: Dr Guerra Attending Physician: Naif Skelton MD History of Present Illness 74 y/o F admitted w/ concern for sepsis from sacral decubitus ulcer whom I'm asked to follow for dialysis needs. PMH includes HFpEF w/ mitral/tricuspid insufficiency to varying degrees, SSS s/p pacer on eliquis, HTN, pAF diagnosed 06/2018 w/ tachybrady syndrome s/p pacer 09/2018, pituitary tumor s/p resection, seizure disorder, HL, reformed tobacco user. She dialyzes under my care MWF at [facility], having started only in past 5 wks or so. ESRD from ischemic ATN during that admission; prior to this prolonged February admission (02/21-03/15) for pneumonia w/ sepsis she had normal renal function. Sacral wound began summer 2018; had stage 2 pressure sore noted by HHN last week. Pt minimally mobile at home. struggling to keep wound clean. wound has worsened in past week w/ ulceration and foul smelling drainage noted on admission. pt denies sob or change in edema or n/v/d; does c/o pain over/around sacral ulcer but pain a bit decreased past few hours Allergies Allergy/AdvReac Type Severity Reaction Status Date / Time phenytoin Allergy Intermediate HIVES AND Verified 04/20/19 18:19 MOUTH ULCERS codeine AdvReac Mild VOMITTING Verified 04/20/19 18:19 Bactrim AdvReac Unknown "FEELS Verified 10/23/18 12:53 LIKE KNIVES ARE IN MY HEAD" hydrochlorothiazide AdvReac Unknown SEE COMMENT Verified 04/20/19 18:19 sulfamethoxazole AdvReac Unknown "FEELS Verified 04/20/19 18:19 LIKE KNIVES ARE IN MY HEAD" trimethoprim AdvReac Unknown "FEELS Verified 04/20/19 18:19 LIKE KNIVES ARE IN MY HEAD" Dust Allergy Mild SINUS Uncoded 04/20/19 18:19 INFECTIONS Home Medications Home Medications Medication Instructions Recorded Confirmed Type atorvastatin 20 mg PO QAM 06/15/18 04/20/19 History cholecalciferol (vitamin D3) 1,000 unit PO QAM 06/15/18 04/20/19 History [Vitamin D3] levetiracetam 500 mg PO BID 06/15/18 04/20/19 History omeprazole 20 mg PO QAM 06/15/18 04/20/19 History trazodone 50 mg PO HS PRN 06/15/18 04/20/19 History fexofenadine [Lulu Allergy] 180 mg PO DAILY PRN 09/18/18 04/20/19 History metoprolol tartrate 50 mg PO BID #60 tab 09/21/18 04/20/19 Rx brinzolamide-brimonidine 1 drp OPB BID 02/21/19 04/20/19 History prednisone 10 mg PO DAILY 02/21/19 04/20/19 History hydralazine 12.5 mg PO BID #30 tab 03/03/19 04/20/19 Rx amlodipine [Norvasc] 5 mg PO BID 04/20/19 04/20/19 History warfarin 1 mg PO QPM 04/20/19 04/20/19 History Patient History Medical History Atrial fibrillation (Chronic) ON ELIQUIS Chronic sinusitis (Chronic) Exertional dyspnea GERD (gastroesophageal reflux disease) (Chronic) Glaucoma (Chronic) Hyperlipidemia (Chronic) Hypertension (Chronic) Neuropathy (Chronic) Osteoarthritis (Chronic) Seizure disorder (Chronic) single episode in 2005 Valvular heart disease (Chronic) MILD AR/MR/TR PER 07/2018 ECHO Surgical History History of bilateral tubal ligation (Chronic) History of cataract surgery (Chronic) B/L History of cholecystectomy (Chronic) History of dilatation and curettage (Chronic) History of tonsillectomy (Chronic) History of tooth extraction (Chronic) History of total shoulder replacement (Chronic) RIGHT REVERSE TOTAL SHOULDER S/P correction of deviated nasal septum (Chronic) S/P placement of cardiac pacemaker (Chronic) 09/18/18 Family History Other Breast cancer Social History Preferred Language: Sami Communication Ability: Effective Visual Impairment: No Limitations Hearing Ability: Normal Loss Claim Clerk Required: No Beliefs That Will Affect Care: None marital status: Current Living Situation: Spouse current occupational status: retired Feels Safe at Home: Yes Smoking Status: Former smoker Tobacco Type: cigarettes ; packs per day: 0.5 ; Cigarettes Per Day: Smoked ~1/2 ppd x ~15 years (unsure) ; Second Hand Exposure: No ; Hx Alcohol Use: No Hx Substance Use: No Childhood Exposure to Second-Hand Smoke: No Review of Systems Review of Systems: All systems reviewed & are unremarkable except as noted in HPI & below Physical Exam Constitutional: well developed and well nourished; no acute distress (lying in bed on RA; tired appearing) Eyes: EOM intact bilaterally ENMT: Ears: no external ear abnormality Nose: no external nose abnormality Mouth: + dry oral mucous membranes Neck: no nuchal rigidity Respiratory: normal respiratory effort Auscultation: + diminished lung sounds Cardiovascular: Rate/Rhythm: regular rate and regular rhythm Extremities: + edema (3+ BLE w/ bruising) Gastrointestinal (Abdomen): Inspection/Auscultation: normal bowel sounds Percussion/Palpation: abdomen soft; abdomen nontender Musculoskeletal: Extremities: strength 5/5 throughout Skin: no rashes, warm and dry Neurologic: jett, fluent speech, no tremor Psychiatric: Orientation: alert and oriented x 3 Affect: + flat affect Insight: good insight Judgement: good judgement Results & Data Vital Signs (Past 12 Hours) Vital Signs Temp Pulse Resp BP Pulse Ox 04/21/19 11:49 36.4 C L 18 L 18 109/54 L 92 04/21/19 07:08 36.4 C L 91 H 18 112/64 91 04/21/19 04:03 36.6 C 70 18 100/59 L 95 Laboratory Results 04/21/19 05:22 04/21/19 05:22 INR 7.1 Diagnostic Findings Non con CT abd/pelvis 1. Moderate subcutaneous edema within the right posterior abdominal wall and left flank. This could be due to prior soft tissue contusion. 2. Mild subcutaneous edema/fat stranding at the level the sacrum. However, no definite soft tissue ulceration or underlying bony destruction to suggest osteomyelitis. 3. Small bilateral pleural effusions persist. 4. Mild congestive change on the background of chronic interstitial thickening. This has improved. 5. Cholecystectomy. 6. No definite bowel wall thickening or obstruction. 7. Mild ileus. 8. Mildly distended bladder. CXR cardiomegaly; improved vascular congestion
--- NOTE | 2019-04-21 13:04 | Electrocardiogram Report ---
Test Reason : Blood Pressure : / mmHG Vent. Rate : 076 BPM Atrial Rate : 250 BPM P-R Int : 000 ms QRS Dur : 172 ms QT Int : 516 ms P-R-T Axes : 000 -54 110 degrees QTc Int : 580 ms Ventricular-paced rhythm with occasional Premature ventricular complexes Abnormal ECG When compared with ECG of 27-FEB-2019 15:53, Premature ventricular complexes are now Present Vent. rate has decreased BY 4 BPM Confirmed by Jose Henriquez ([id number]) on 04/21/2019 1:04:27 PM Referred By: REFERRED SELF Confirmed By:Jose Henriquez
--- NOTE | 2019-04-21 13:36 | Hospitalist Progress Note ---
Date of Service April 21, 2019 Assessment & Plan (1) Sacral decubitus ulcer: Sacral decubitus ulcer Possible Sepsis Immunocompromised patient, chronic steroid Use --CT ABD:Moderate subcutaneous edema within the right posterior abdominal wall and left flank. This could be due to prior soft tissue contusion. Mild subcutaneous edema/fat stranding at the level the sacrum. However, no definite soft tissue ulceration or underlying bony destruction to suggest osteomyelitis. Small bilateral pleural effusions persist. Mild congestive change on the background of chronic interstitial thickening. This has improved. Cholecystectomy. No definite bowel wall thickening or obstruction. Mild ileus. Mildly distended bladder. --Lactate levels normalized with IV fluids Elevated procalcitonin levels --Blood/Wound Cx: Pending --Continue IV Daptomycin, Zosyn --Received IV fluids --Wound Care Consulted --Continue wound Care Supratherapeutic INR INR: 9.4>7.1 Received Vitamin K Monitor INR Chronic diastolic heart failure Volume Overload ESRD Last EF: 60-65% Volume status managed with HD Patient is on MWF dialysis Appreciate Nephrology help Hyponatremia Hypochloremia Due to mild Volume overload Monitor BMP Sick sinus syndrome S/P PPM Coumadin on hold, INR supratherapeutic On Metoprolol ESRD Anemia of Chronic disease Appreciate Nephrology Input on Dialysis MWF Hypertension BP relatively low Decrease Amlodipine to 2.5mg Continue meds with holding parameter Adjust medications as needed Hyperlipidemia Hold statin while on daptomycin H/O Pituitary tumor S/P Surgery Seizure disorder Continue Keppra Hyperglycemia likely steroid-induced R/O DM HbA1C pending DVT Px: INR supratherapeutic CODE STATUS Full Code Disposition May need Rehab Placement Case Management consulted for discharge planning Subjective Patient is seen and examined at bedside Complains of sacral wound pain Due for hemodialysis tomorrow Denies any chest pain, SOB, dizziness, nausea, abdominal pain Offers no other complaints Review of Systems Review of Systems: All systems reviewed & are unremarkable except as noted in HPI & below Physical Exam Physical Exam: Physical Exam: Vitals signs as noted above General Appearance:Obese, no apparent distress Head: normocephalic, Atraumatic Eyes: normal inspection, EOMI Neck: supple, Trachea midline Respiratory/Chest: Normal breath sounds, CTA Cardiovascular: S1, S2, No murmur Abdomen/GI:Soft, Non tender, Bowel sounds present Sacral Wound--Patient refused exam due to pain Extremities/Musculoskelatal:normal inspection, B/L LE 2+ edema Neurologic/Psych:AAOX3, grossly no focal neurological deficits Skin: normal color, warm Results & Data Vital Signs (Past 12 Hours) Vital Signs Temp Pulse Resp BP Pulse Ox 04/21/19 11:49 36.4 C L 18 L 18 109/54 L 92 04/21/19 07:08 36.4 C L 91 H 18 112/64 91 04/21/19 04:03 36.6 C 70 18 100/59 L 95 Laboratory Results Short CBC 04/20/19 04/21/19 Range/Units 18:48 05:22 WBC 19.58 H 18.41 H (4.8-10.8) K/uL Hgb 10.4 L 10.6 L (12.0-16.0) g/dL Hct 32.4 L 33.9 L (37-47) % Plt Count 213 194 (130-400) K/uL BMP 04/20/19 04/21/19 04/21/19 18:48 00:28 05:22 Sodium 129 L 127 L 127 L Potassium 3.1 L 4.0 D Chloride 91 L 90 L Carbon Dioxide 27 26 BUN 26 H 28 H Creatinine 3.05 H 3.28 H Glucose 98 103 H Calcium 7.8 L 7.8 L Cardiac Enzymes 04/20/19 Range/Units 18:48 Troponin I 0.046 H* (0-0.045) ng/ml Liver Function 04/20/19 Range/Units 18:48 Total Bilirubin 1.3 H (0.2-1) mg/dl AST 44 H (15-37) U/L ALT 27 (12-78) U/L Alkaline Phosphatase 190 H (45-117) U/L Albumin 2.1 L (3.4-5.0) gm/dl
[2019-04-21] MEDS: HYDROmorphone INJ 0.5 MG/0.5 ML SYR IV PRN (17:31)
[2019-04-22] MEDS: PIPERACILLIN/TAZOBACTAM 3.375 GM in DEXTROSE 5% 100 ML IV SCH ×2 (02:02→14:48)
[2019-04-22] MEDS: OXYCODONE HCL IR 5 MG TAB (IMMEDIATE RELEASE) PO PRN ×3 (05:11→19:53)
[2019-04-22 06:03] LABS: Estimated Average Glucose 88 mg/dl; Hemoglobin A1C 4.7 % (4.5-5.6)
[2019-04-22] MEDS ORDERED: HEPARIN SOD (PORCINE) 1000 UNIT/ML 10 ML VIAL IV ONE (07:00)
[2019-04-22] MEDS ORDERED: SODIUM CHLORIDE 0.9% 1000ML 1,000 ML IV PRN (07:00)
[2019-04-22 07:02] LABS: Hematocrit (blood only) 30.8 % (37-47); Hemoglobin 9.7 g/dL (12.0-16.0); Mean Corpuscular Hemoglobin 26.9 pg (25-34); Mean Corpuscular Hgb Conc 31.5 g/dL (32-36); Mean Corpuscular Volume 85.3 fL (80-100); Platelet Count 202 K/uL (130-400); RDW Coefficient of Variation 17.8 % (11.5-14.5); RDW Standard Deviation 55.9 fL (36.4-46.3); Red Blood Count 3.61 M/uL (4.2-5.4); White Blood Count 16.63 K/uL (4.8-10.8)
[2019-04-22 07:14] LABS: INR 2.6 (0.9-1.1); Prothrombin Time 24.7 Seconds (9.0-12.0)
[2019-04-22 07:40] LABS: BUN Creatinine Ratio 9.9 (10-20); Calcium 8.3 mg/dl (8.5-10.1); Creatinine Clr Calc Pharmacy 12.3 ml/min; Est GFR (African American) 11.3; Est GFR (Non-African American) 9.7
[2019-04-22 08:01] LABS: Potassium 4.8 mmol/L (3.5-5.1)
[2019-04-22 08:35] LABS: Hepatitis B Surface Ab Quant < 3.10 mIU/mL (>or=10mIU/mL Immune); Hepatitis B Surface Antibody Non-Immune
[2019-04-22 08:46] LABS: Hepatitis B Surface Antigen Neg (Neg)
[2019-04-22] MEDS: HEPARIN SOD (PORCINE) 1000 UNIT/ML 10 ML VIAL IV SCH (08:59)
[2019-04-22] MEDS: AMLODIPINE BESYLATE 5 MG TAB PO SCH (09:25)
[2019-04-22] MEDS: METOPROLOL TARTRATE 50 MG TAB PO SCH ×2 (09:48→19:53)
[2019-04-22] MEDS: levETIRAcetam 500 MG TAB PO SCH (09:48)
--- NOTE | 2019-04-22 10:37 | Consultation ---
Date of Consultation April 22, 2019 Assessment & Plan (1) ESRD (end stage renal disease) on dialysis: Pt with apparently displaced catheter, pt unaware of when or how this occurred. Discussed with Dr Sifuentes, recommends removing remainder of catheter in room,then will place new catheter in OR tomorrow. Pt agreeable. Will hold eliquis today. Present on Admission?: Yes History of Present Illness Reason for Consultation: permcath malposition Attending Physician: Naif Skelton MD History of Present Illness 74 yo f with multiple medical problems, including ESRD on HD, a fib on AC, HTN, hyperlipiodemia, CHF, admitted with infected decubitus ulcer, seen in consultation today for repositioning of her permcath after it was noted to be signifciantly displaced at HD this morning. Pt states she ran at outpt HD 3 days ago without problems, but was advised that her permcath was slightly displaced. Admits decubitus pain. Denies JAMES, fever, chills, chest pain, SOB, orthopnea, abd pain, N/V, rest pain, claudication, other complaints. Allergies Allergy/AdvReac Type Severity Reaction Status Date / Time phenytoin Allergy Intermediate HIVES AND Verified 04/20/19 18:19 MOUTH ULCERS codeine AdvReac Mild VOMITTING Verified 04/20/19 18:19 Bactrim AdvReac Unknown "FEELS Verified 10/23/18 12:53 LIKE KNIVES ARE IN MY HEAD" hydrochlorothiazide AdvReac Unknown SEE COMMENT Verified 04/20/19 18:19 sulfamethoxazole AdvReac Unknown "FEELS Verified 04/20/19 18:19 LIKE KNIVES ARE IN MY HEAD" trimethoprim AdvReac Unknown "FEELS Verified 04/20/19 18:19 LIKE KNIVES ARE IN MY HEAD" Dust Allergy Mild SINUS Uncoded 04/20/19 18:19 INFECTIONS Home Medications Home Medications Medication Instructions Recorded Confirmed Type atorvastatin 20 mg PO QAM 06/15/18 04/20/19 History cholecalciferol (vitamin D3) 1,000 unit PO QAM 06/15/18 04/20/19 History [Vitamin D3] levetiracetam 500 mg PO BID 06/15/18 04/20/19 History omeprazole 20 mg PO QAM 06/15/18 04/20/19 History trazodone 50 mg PO HS PRN 06/15/18 04/20/19 History fexofenadine [Lulu Allergy] 180 mg PO DAILY PRN 09/18/18 04/20/19 History metoprolol tartrate 50 mg PO BID #60 tab 09/21/18 04/20/19 Rx brinzolamide-brimonidine 1 drp OPB BID 02/21/19 04/20/19 History prednisone 10 mg PO DAILY 02/21/19 04/20/19 History hydralazine 12.5 mg PO BID #30 tab 03/03/19 04/20/19 Rx amlodipine [Norvasc] 5 mg PO BID 04/20/19 04/20/19 History warfarin 1 mg PO QPM 04/20/19 04/20/19 History Patient History Medical History (Updated 04/22/19 @ 20:59 by Marc Hutchinson DO) Atrial fibrillation (Chronic) ON ELIQUIS Chemical dermatitis Chronic sinusitis (Chronic) Exertional dyspnea GERD (gastroesophageal reflux disease) (Chronic) Glaucoma (Chronic) Hyperlipidemia (Chronic) Hypertension (Chronic) Neuropathy (Chronic) Osteoarthritis (Chronic) Seizure disorder (Chronic) single episode in 2005 Valvular heart disease (Chronic) MILD AR/MR/TR PER 07/2018 ECHO Surgical History History of bilateral tubal ligation (Chronic) History of cataract surgery (Chronic) B/L History of cholecystectomy (Chronic) History of dilatation and curettage (Chronic) History of tonsillectomy (Chronic) History of tooth extraction (Chronic) History of total shoulder replacement (Chronic) RIGHT REVERSE TOTAL SHOULDER S/P correction of deviated nasal septum (Chronic) S/P placement of cardiac pacemaker (Chronic) 09/18/18 Family History Other Breast cancer Social History Preferred Language: Kinyarwanda Communication Ability: Effective Visual Impairment: No Limitations Hearing Ability: Normal [employer]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 Beliefs That Will Affect Care: None marital status: Current Living Situation: Spouse current occupational status: retired Feels Safe at Home: Yes Smoking Status: Former smoker Tobacco Type: cigarettes ; packs per day: 0.5 ; Cigarettes Per Day: Smoked ~1/2 ppd x ~15 years (unsure) ; Second Hand Exposure: No ; Hx Alcohol Use: No Hx Substance Use: No Childhood Exposure to Second-Hand Smoke: No Review of Systems Review of Systems: All systems reviewed & are unremarkable except as noted in HPI & below Physical Exam Constitutional: WD/WN, vitals as above + morbidly obese and healthy appearing; not in distress Eyes: PERRL, conjunctivae normal, anicteric sclerae ENMT: external ear and nose normal, oropharynx normal Ears: no hearing impairment Neck: trachea midline, no thyromegaly Respiratory: normal respiratory effort, lungs clear to auscultation Auscultation: + diminished lung sounds Cardiovascular: Rate/Rhythm: + irregularly irregular Vessels: femoral pulses present, brachial pulses present and radial pulses present; + abnormal peripheral pulses Extremities: normal capillary refill, + edema (mild) and + vascular access device (R chest permcath hanging from exit site, ~10 inches of catheter visible.) no bleeding. Gastrointestinal (Abdomen): normal bowel sounds, soft, nontender, no hepatosplenomegaly Musculoskeletal: no cyanosis or clubbing, extremities motor strength 5/5 Skin: no rashes, warm and dry Neurologic: moves all extremities; no focal motor deficits and not confused Psychiatric: A+Ox3, euthymic affect Results & Data Vital Signs (Past 12 Hours) Vital Signs Temp Pulse Pulse Pulse Resp BP BP 04/22/19 09:24 73 93/58 L 04/22/19 09:00 36.8 C 73 04/22/19 08:18 36.6 C 88 18 04/22/19 04:00 36.5 C 72 18 108/63 04/22/19 01:48 70 04/21/19 23:00 36.6 C 68 18 100/66 BP Pulse Ox 04/22/19 09:24 04/22/19 09:00 04/22/19 08:18 105/66 91 04/22/19 04:00 93 04/22/19 01:48 04/21/19 23:00 95
[2019-04-22] MEDS: predniSONE 10 MG TABLET PO SCH (11:09)
--- NOTE | 2019-04-22 12:03 | Nephrology Progress Note ---
Date of Service April 22, 2019 Assessment & Plan (1) ESRD (end stage renal disease) on dialysis: unfortunately no renal recovery since NADIA in February and now esrd; while she reported oligoanuria at clinic not seen here (800 uop ON) -HD tomorrow per routine after tdc replacement -hyponatremia reflects mild chronic volume overload for her -daily bmp -agree w/ 2L FR for now while she is on clears; ? rationale for clears; when off clears, pls put on 1.5L FR (2) Anemia of chronic disease: check hgb q24-48 hrs; has been stable in 10-11s -epo and as needed iron w/ HD Present on Admission?: Yes (3) Sacral decubitus ulcer: per primary service and wound team Present on Admission?: Yes (4) Malposition of peritoneal dialysis catheter: in position on presentation but not now -will remove today; have replaced in am; vascular input appreciated Present on Admission?: No Subjective seen on rounds 08; HR controlled; no sob; decubital pain controlled; had liquid breakfast; edema unchanged; moving bowels Review of Systems Review of Systems: All systems reviewed & are unremarkable except as noted in HPI & below Physical Exam Constitutional: well developed and well nourished; no acute distress (sitting up in bed on RA; tired appearing) Eyes: EOM intact bilaterally ENMT: Ears: no external ear abnormality Nose: no external nose abnormality Mouth: + dry oral mucous membranes Neck: no nuchal rigidity Respiratory: normal respiratory effort and + cough (w/ deep breaths for lung exam) Auscultation: + diminished lung sounds and + rhonchi Cardiovascular: Rate/Rhythm: regular rate and regular rhythm Extremities: + edema (3+ BLE) Gastrointestinal (Abdomen): Inspection/Auscultation: normal bowel sounds Percussion/Palpation: abdomen soft; abdomen nontender Musculoskeletal: Extremities: strength 5/5 throughout Skin: no rashes, warm and dry Psychiatric: Orientation: alert and oriented x 3 Affect: + flat affect Insight: good insight Judgement: good judgement Genitourinary: no lanza present Results & Data Vital Signs (Past 12 Hours) Vital Signs Temp Pulse Pulse Pulse Resp BP BP 04/22/19 09:24 73 93/58 L 04/22/19 09:00 36.8 C 73 04/22/19 08:18 36.6 C 88 18 01/06/20 04:00 36.5 C 72 18 108/63 04/22/19 01:48 70 BP Pulse Ox 04/22/19 09:24 04/22/19 09:00 04/22/19 08:18 105/66 91 04/22/19 04:00 93 04/22/19 01:48 Laboratory Results 04/22/19 06:54 04/22/19 06:54
[2019-04-22] MEDS: HYDROmorphone INJ 0.5 MG/0.5 ML SYR IV PRN (14:49)
--- NOTE | 2019-04-22 17:39 | Hospitalist Progress Note ---
Date of Service April 22, 2019 Assessment & Plan (1) Sacral decubitus ulcer: Sacral decubitus ulcer Possible Sepsis Immunocompromised patient, chronic steroid Use --CT ABD:Moderate subcutaneous edema within the right posterior abdominal wall and left flank. This could be due to prior soft tissue contusion. Mild subcutaneous edema/fat stranding at the level the sacrum. However, no definite soft tissue ulceration or underlying bony destruction to suggest osteomyelitis. Small bilateral pleural effusions persist. Mild congestive change on the background of chronic interstitial thickening. This has improved. Cholecystectomy. No definite bowel wall thickening or obstruction. Mild ileus. Mildly distended bladder. --Lactate levels normalized with IV fluids Elevated procalcitonin levels --Blood cultures: No growth to date Wound Cx: Gram-negative bacilli --Continue IV Daptomycin, Zosyn --Received IV fluids --Wound Care Consulted --Continue wound Care Supratherapeutic INR INR: 9.4>7.1>> 2.6 Received Vitamin K Monitor INR Hold any anticoagulation due to procedure tomorrow Chronic diastolic heart failure Volume Overload ESRD Last EF: 60-65% Volume status managed with HD Patient is on MWF dialysis Appreciate Nephrology help Dialysis once tunneled catheter placement tomorrow Hyponatremia Hypochloremia Due to mild Volume overload Monitor BMP No change in mental status Sick sinus syndrome S/P PPM On Metoprolol Plan to resume Coumadin when appropriate ESRD Anemia of Chronic disease Appreciate Nephrology Input on Dialysis MWF Hypertension BP relatively low Hold amlodipine, hydralazine for now Adjust medications as needed Hyperlipidemia Hold statin while on daptomycin H/O Pituitary tumor S/P Surgery Seizure disorder Continue Keppra Hyperglycemia likely steroid-induced HbA1C:4.7 DVT Px: INR therapeutic CODE STATUS Full Code Disposition May need Rehab Placement Case Management consulted for discharge planning Subjective Patient is seen and examined at bedside Patient's tunneled dialysis catheter malposition Could not get dialysis today Sacral wound pain slightly better No new complaints Plan for tunneled dialysis catheter placement by vascular surgery tomorrow Denies any chest pain, SOB, dizziness, nausea, abdominal pain Review of Systems Review of Systems: All systems reviewed & are unremarkable except as noted in HPI & below Physical Exam Physical Exam: Physical Exam: Vitals signs as noted above General Appearance:Obese, no apparent distress Head: normocephalic, Atraumatic Eyes: normal inspection, EOMI Neck: supple, Trachea midline Respiratory/Chest: Normal breath sounds, CTA Cardiovascular: S1, S2, No murmur Abdomen/GI:Soft, Non tender, Bowel sounds present Sacral Wound--Patient refused Extremities/Musculoskelatal:normal inspection, B/L LE 2+ edema Neurologic/Psych:AAOX3, grossly no focal neurological deficits Skin: normal color, warm Results & Data Vital Signs (Past 12 Hours) Vital Signs Temp Pulse Pulse Pulse Resp BP BP 04/22/19 12:31 36.4 C L 67 20 123/76 04/22/19 09:24 73 93/58 L 04/22/19 09:00 36.8 C 73 04/22/19 08:18 36.6 C 88 18 105/66 Pulse Ox 04/22/19 12:31 99 04/22/19 09:24 04/22/19 09:00 04/22/19 08:18 91 Laboratory Results Short CBC 04/22/19 Range/Units 06:54 WBC 16.63 H (4.8-10.8) K/uL Hgb 9.7 L (12.0-16.0) g/dL Hct 30.8 L (37-47) % Plt Count 202 (130-400) K/uL BMP 04/22/19 06:54 Sodium 122 L Potassium 4.8 D Chloride 87 L Carbon Dioxide 23 BUN 42 H Creatinine 4.25 H D Glucose 83 Calcium 8.3 L
[2019-04-22] MEDS ORDERED: DAPTOmycin 350 MG in SYRINGE 0 ML IV SCH (18:00)
--- NOTE | 2019-04-22 20:47 | Wound Consultation ---
Date of Consultation April 22, 2019 Assessment & Plan (1) Chemical dermatitis: This is a 74 year old female with chemical dermatitis of the sacral region with underlying stage 2 pressure ulcer. No debridement was required today. Wound will be dressed with barrier cream. Continue antibiotics. Can see patient in office after discharge. Thank you for allowing me to participate in the care of this patient. Please don't hesitate to call with any questions. (2) Stage II pressure ulcer of buttock: History of Present Illness Reason for Consultation: sacral wound Attending Physician: Naif Skelton MD History of Present Illness This is a 74y female with history of chronic diastolic heart failure, ESRD on dialysis, HTN, hyponatremia, seizure disorder, chronic anemia, functional disability and pituitary tumor s/p surgery presents for worsening sacral ulcer. Patient admitted with wound infection. Per reports, patient sits in chair all day while her is at work. She has been resistive to home health stating she can care for herself. Allergies Allergy/AdvReac Type Severity Reaction Status Date / Time phenytoin Allergy Intermediate HIVES AND Verified 04/20/19 18:19 MOUTH ULCERS codeine AdvReac Mild VOMITTING Verified 04/20/19 18:19 Bactrim AdvReac Unknown "FEELS Verified 10/23/18 12:53 LIKE KNIVES ARE IN MY HEAD" hydrochlorothiazide AdvReac Unknown SEE COMMENT Verified 04/20/19 18:19 sulfamethoxazole AdvReac Unknown "FEELS Verified 04/20/19 18:19 LIKE KNIVES ARE IN MY HEAD" trimethoprim AdvReac Unknown "FEELS Verified 04/20/19 18:19 LIKE KNIVES ARE IN MY HEAD" Dust Allergy Mild SINUS Uncoded 04/20/19 18:19 INFECTIONS Home Medications Home Medications Medication Instructions Recorded Confirmed Type atorvastatin 20 mg PO QAM 06/15/18 04/20/19 History cholecalciferol (vitamin D3) 1,000 unit PO QAM 06/15/18 04/20/19 History [Vitamin D3] levetiracetam 500 mg PO BID 06/15/18 04/20/19 History omeprazole 20 mg PO QAM 06/15/18 04/20/19 History trazodone 50 mg PO HS PRN 06/15/18 04/20/19 History fexofenadine [Lulu Allergy] 180 mg PO DAILY PRN 09/18/18 04/20/19 History metoprolol tartrate 50 mg PO BID #60 tab 09/21/18 04/20/19 Rx brinzolamide-brimonidine 1 drp OPB BID 02/21/19 04/20/19 History prednisone 10 mg PO DAILY 02/21/19 04/20/19 History hydralazine 12.5 mg PO BID #30 tab 03/03/19 04/20/19 Rx amlodipine [Norvasc] 5 mg PO BID 04/20/19 04/20/19 History warfarin 1 mg PO QPM 04/20/19 04/20/19 History Patient History Medical History Atrial fibrillation (Chronic) ON ELIQUIS Chronic sinusitis (Chronic) Exertional dyspnea GERD (gastroesophageal reflux disease) (Chronic) Glaucoma (Chronic) Hyperlipidemia (Chronic) Hypertension (Chronic) Neuropathy (Chronic) Osteoarthritis (Chronic) Seizure disorder (Chronic) single episode in 2005 Valvular heart disease (Chronic) MILD AR/MR/TR PER 07/2018 ECHO Surgical History History of bilateral tubal ligation (Chronic) History of cataract surgery (Chronic) B/L History of cholecystectomy (Chronic) History of dilatation and curettage (Chronic) History of tonsillectomy (Chronic) History of tooth extraction (Chronic) History of total shoulder replacement (Chronic) RIGHT REVERSE TOTAL SHOULDER S/P correction of deviated nasal septum (Chronic) S/P placement of cardiac pacemaker (Chronic) 09/18/18 Family History Other Breast cancer Social History Preferred Language: Welsh Communication Ability: Effective Visual Impairment: No Limitations 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 Beliefs That Will Affect Care: None marital status: Current Living Situation: Spouse current occupational status: retired Feels Safe at Home: Yes Smoking Status: Former smoker Tobacco Type: cigarettes ; packs per day: 0.5 ; Cigarettes Per Day: Smoked ~1/2 ppd x ~15 years (unsure) ; Second Hand Exposure: No ; Hx Alcohol Use: No Hx Substance Use: No Childhood Exposure to Second-Hand Smoke: No Review of Systems Review of Systems: All systems reviewed & are unremarkable except as noted in HPI & below Physical Exam Constitutional: + ill appearing and + obese Eyes: PERRL, conjunctivae normal, anicteric sclerae ENMT: Ears: no hearing impairment Skin: wound measuring 18 x 13 x 0.1cm. Wound is covered with fibrin and slough. Periwound is macerated and inflamed. Neurologic: awake; not confused Psychiatric: A+Ox3, euthymic affect Results & Data Vital Signs (Past 12 Hours) Vital Signs Temp Pulse Pulse Pulse Resp BP BP 04/22/19 19:11 36.5 C 64 18 117/78 04/22/19 12:31 36.4 C L 67 20 123/76 04/22/19 09:24 73 93/58 L 04/22/19 09:00 36.8 C 73 Pulse Ox 04/22/19 19:11 95 04/22/19 12:31 99 04/22/19 09:24 04/22/19 09:00 Laboratory Results Short CBC 04/22/19 Range/Units 06:54 WBC 16.63 H (4.8-10.8) K/uL Hgb 9.7 L (12.0-16.0) g/dL Hct 30.8 L (37-47) % Plt Count 202 (130-400) K/uL BMP 04/22/19 06:54 Sodium 122 L Potassium 4.8 D Chloride 87 L Carbon Dioxide 23 BUN 42 H Creatinine 4.25 H D Glucose 83 Calcium 8.3 L Diagnostic Findings Chest x-ray : Cardiomegaly with interval improvement in the mild pulmonary vascular congestion. EKG as per my interpretation : Rate 75, paced rhythm, PVCs CT abdomen pelvis: 1. Moderate subcutaneous edema within the right posterior abdominal wall and left flank. This could be due to prior soft tissue contusion. 2. Mild subcutaneous edema/fat stranding at the level the sacrum. However, no definite soft tissue ulceration or underlying bony destruction to suggest osteomyelitis. 3. Small bilateral pleural effusions persist. 4. Mild congestive change on the background of chronic interstitial thickening. This has improved. 5. Cholecystectomy. 6. No definite bowel wall thickening or obstruction. 7. Mild ileus. 8. Mildly distended bladder. PG Care Time/CCT Total # of Minutes Spent Total Time Spent with Patient: Total time spent is greater than 50% in coordination of care (as documented) at patient's floor/unit and/or counseling patient: (1) Stage II pressure ulcer of buttock Laterality: unspecified laterality Qualified Code(s): L89.302 - Pressure ulcer of unspecified buttock, stage 2
[2019-04-23] MEDS: PIPERACILLIN/TAZOBACTAM 3.375 GM in DEXTROSE 5% 100 ML IV SCH ×2 (01:31→13:39)
[2019-04-23] MEDS: OXYCODONE HCL IR 5 MG TAB (IMMEDIATE RELEASE) PO PRN ×2 (05:53→23:18)
[2019-04-23] MEDS ORDERED: SODIUM CHLORIDE 0.9% 1000ML 1,000 ML IV PRN (07:00)
[2019-04-23] MEDS ORDERED: EPOETIN ALFA 10,000 UNITS/ML VIAL IV ONE (07:00)
[2019-04-23 07:08] LABS: Hematocrit (blood only) 30.9 % (37-47); Hemoglobin 10.1 g/dL (12.0-16.0); Mean Corpuscular Hemoglobin 26.9 pg (25-34); Mean Corpuscular Hgb Conc 32.7 g/dL (32-36); Mean Corpuscular Volume 82.4 fL (80-100); Mean Platelet Volume 10.2 fL (7.4-10.4); Nucleated RBC # (auto) 0.04 K/uL (0-0); Nucleated RBC % (auto) 0.2 %; Platelet Count 215 K/uL (130-400); RDW Coefficient of Variation 17.6 % (11.5-14.5); RDW Standard Deviation 53.4 fL (36.4-46.3); Red Blood Count 3.75 M/uL (4.2-5.4); White Blood Count 16.51 K/uL (4.8-10.8)
[2019-04-23 07:17] LABS: INR 2.2 (0.9-1.1); Prothrombin Time 21.4 Seconds (9.0-12.0)
[2019-04-23 07:51] LABS: BUN Creatinine Ratio 9.8 (10-20); Calcium 8.3 mg/dl (8.5-10.1); Creatinine Clr Calc Pharmacy 10.6 ml/min; Est GFR (Non-African American) 7.8
--- NOTE | 2019-04-23 07:55 | History & Physical Bridge Note ---
Date of Service April 23, 2019 History & Physical Bridge Note Patient for insertion of permcath today. I have discussed the risks options and benefits of the procedure with the patient. The patient understands the risks options and benefits and agrees to the procedure. I have examined the patient, reviewed the History & Physical and in the interval since the performance of the History & Physical I have noted the following changes of clinical significance: no changes noted
[2019-04-23] MEDS ORDERED: CEFAZOLIN 2000MG 2,000 MG/15 ML SYR IV ONE (08:00)
[2019-04-23] MEDS ORDERED: GLUCOSE 40% GEL 15 GM TUBE PO PRN (08:37)
[2019-04-23] MEDS ORDERED: DEXTROSE 50% 50 ML SYRINGE IV PRN (08:37)
[2019-04-23] MEDS ORDERED: GLUCAGON FOR INJ 1 MG VIAL SQ PRN (08:37)
[2019-04-23] MEDS ORDERED: DEXTROSE 50% 50 ML SYRINGE IV ONE ×2 (08:40→21:08)
[2019-04-23] MEDS: predniSONE 10 MG TABLET PO SCH (08:46)
[2019-04-23] MEDS: METOPROLOL TARTRATE 50 MG TAB PO SCH ×2 (08:47→20:08)
[2019-04-23] MEDS ORDERED: LIDOCAINE HCL 1% 20 ML VIAL ONE (09:09)
[2019-04-23] MEDS ORDERED: HEPARIN SOD (PORCINE) 5,000 UNITS/ML VIAL ONE (09:09)
[2019-04-23] MEDS: DEXTROSE 50% 50 ML SYRINGE IV ONE ×2 (09:35→10:54)
[2019-04-23] MEDS ORDERED: fentaNYL citrate 100 MCG/2 ML VIAL ONE (09:41)
[2019-04-23] MEDS ORDERED: MIDAZOLAM HCL 1 MG/ML 2ML VIAL ONE (09:41)
--- NOTE | 2019-04-23 09:44 | Pre Anesthesia Assessment ---
Date of Service April 23, 2019 Pre Sedation Assessment Vital Signs Temp Pulse Pulse Pulse Resp BP Pulse Ox 04/23/19 09:05 36.4 C L 70 18 133/68 96 04/23/19 08:06 36.7 C 68 18 114/72 95 04/23/19 04:08 36.5 C 68 21 113/68 95 04/23/19 00:24 70 04/22/19 23:16 36.3 C L 70 18 116/68 96 04/22/19 19:11 36.5 C 64 18 117/78 95 04/22/19 12:31 36.4 C L 67 20 123/76 99 Cardiovascular RRR, no murmur, no edema Respiratory normal respiratory effort, lungs clear to auscultation Pre-Sedation Airway Assessment Smoking Status: Former smoker Hx Sleep Apnea: No Hx Difficult Intubation: No Short, Thick Neck: Yes Thyromental Distance: > or= 3.5 Finger Breadths Oral Cavity: + WNL Mallampati Class: II ASA: ASA3 NPO Status Date of Last Intake of Fluids: 04/23/19 Time of Last Intake of Fluids: 06:15 Date of Last Intake of Solid Food: 04/22/19 Time of Last Intake of Solid Foods: 21:00 Procedure Planning Contraindications for Sedation: none Current Medications Reviewed: Yes Notes The planned sedation has been discussed with the patient. Informed Consent was obtained. I have identified the patient, determined the appropriateness of sedation and have assessed the patient immediately prior to the procedure. All medicine(s) and interventions are by my order.
--- NOTE | 2019-04-23 10:20 | Post Operative Brief Note ---
Immediate Post Op Note v1 Date of Surgery April 23, 2019 Pre & Post Diagnosis Operation Date: 04/23/19 09:25 Pre-Op Diagnosis: End Stage Renal Disease Post-Op Diagnosis: End Stage Renal Disease I identified the patient and participated in the time-out.: Yes Procedure Operation Date: 04/23/19 09:25 Actual Procedures p Insertion of Perm Catheter, Right Internal Jugular Approach, Ultrasound Localization Of Right Internal Jugular Vein, Fluoroscopy for Positioning, Moderate Sedation from 09:55-1038(Right) - Max Sifuentes MD Surgeon Max Sifuentes MD Coil Cleaner MD Keith Estimated Blood Loss 10 Findings Consistent with Post-Op Diagnosis Anesthesia Type RN Sedation Complications none Disposition Accompanied Patient To Recovery: No Disposition: Recovery Room
--- NOTE | 2019-04-23 10:21 | Operative Report ---
Post Operative Report Pre & Post Diagnosis Operation Date: 04/23/19 09:25 Pre-Op Diagnosis: End Stage Renal Disease Post-Op Diagnosis: End Stage Renal Disease I identified the patient and participated in the time-out.: Yes Procedure Operation Date: 04/23/19 09:25 Actual Procedures p Insertion of Perm Catheter, Right Internal Jugular Approach, Ultrasound Localization Of Right Internal Jugular Vein, Fluoroscopy for Positioning, Moderate Sedation from [id number](Right) - Max Sifuentes MD Surgeon Dr. Emiliano Sifuentes Heat Treatment Technician Dr Helen Navarro Estimated Blood Loss 10 Findings Consistent with Post-Op Diagnosis Specimens none Anesthesia Type RN Sedation Complications none Disposition Accompanied Patient To Recovery: No Disposition: Recovery Room Indications 74 yo female with history of ESRD on HD, with malfunction requiring removal of her permacath yesterday. It was recommended that she undergo replacement of a tunneled permacath dialysis line for continuation of her HD treatments. I have discussed the risks options and benefits of the procedure with the patient. The patient understands the risks options and benefits and agrees to the procedure. Description of Procedure Patient was taken to the angio suite and placed in the supine position. The right side of the neck and chest wall were prepped and draped in a sterile manner. Local anesthesia was then administered to the appropriate areas of the neck and chest wall. Ultrasound was then used to locate the right internal jugular vein. The vein compressed easily, had no filing defects, and was patent. The vein was then punctured under direct ultrasound imaging. A guidewire was then passed centrally under fluoroscopic imaging. A stab wound was then made in the anterior chest wall and a 19 cm permcath was passed from the stab wound on the chest wall to the puncture site on the neck. The puncture site was then dilated till the 14Fr peel away sheath was inserted. The permcath was then inserted through the sheath to a central position in the distal superior vena cava. The peel away sheath was then removed. The catheter was then sutured in place using nylon sutures. The puncture was then closed using a 4-0 Vicryl subcuticular suture. Dermabond was used for a dressing on the puncture site. Both ports aspirated and flushed easily and were then packed with heparin. A sterile dressing was applied to the catheter. The patient left the angio suite in good condition and tolerated the procedure well. Dr. Sifuentes was present and scrubbed for the entire procedure. I attest to the content of the Intraoperative Record and any orders documented therein. Any exceptions are noted below.
--- NOTE | 2019-04-23 10:43 | Post Anesthesia Assessment ---
Date of Service April 23, 2019 Post Sedation Assessment Vital Signs Temp Pulse Pulse Pulse Resp BP Pulse Ox 04/23/19 10:38 73 20 105/75 100 04/23/19 10:33 72 20 129/68 100 04/23/19 10:28 73 20 124/72 93 04/23/19 10:23 70 20 104/68 95 04/23/19 10:18 70 20 104/68 95 04/23/19 10:15 70 20 103/65 93 04/23/19 10:10 70 20 117/66 95 04/23/19 10:05 70 20 110/73 99 04/23/19 10:00 70 18 143/86 H 100 04/23/19 09:55 70 18 140/75 100 04/23/19 09:52 70 20 130/75 100 04/23/19 09:05 36.4 C L 70 18 133/68 96 04/23/19 08:06 36.7 C 68 18 114/72 95 04/23/19 04:08 36.5 C 68 21 113/68 95 04/23/19 00:24 70 04/22/19 23:16 36.3 C L 70 18 116/68 96 04/22/19 19:11 36.5 C 64 18 117/78 95 04/22/19 12:31 36.4 C L 67 20 123/76 99 Recovery Score Activity: Moves 4 extremities Respiration: Deep Breath/Cough Circulation: +/-20% PreAnes Value Consciousness: Arouseable (by name) Oxygen Saturation: O2 needed for >90% Post Anesthesia Score: 8 Discharge Sedation Level of Care: Fast Track Phase II Post Sedation Plan On clinical assessment, the patient appears to have tolerated the sedation without complications. Patient is recovering as anticipated. Patient will continue to be monitored by nursing and may be discharged when sedation discharge criteria are met per below protocol. Upon Completions of procedure up to 15 minutes continue every 5 minute vital signs and the P.A.R. score; then discharge to a Phase I or Fast Track to Phase I I per the following guidelines: * Discharge Patient to appropriate Phase II area if PAR is 8 or greater or return to pre- procedure baseline. The post - procedure orders will be as directed. * If PAR score is less than 8 or not return to pre-procedure baseline then patient will follow Phase I monitoring till PAR is reached for Phase II. The Phase I may be done in procedure room or may call to secure a Phase I area. * If naloxone or flumazenil are used for reversal, hold in Phase I for continued monitoring from when last reversal dose was given for a minimum of 60 minutes or longer pending the nurse and/or physician discretion of patient condition before discharge to Phase II. Please call the Sedation Physician to re-evaluate and complete post-note for discharge to Phase II area. Do NOT discharge from procedure sedation or Phase 1 until post- sedation evaluation note is complete by procedure /sedation MD Sedation Discharge Instructions to be given to the patient at discharge to home.
--- NOTE | 2019-04-23 14:00 | Infectious Disease Consult ---
Date of Consultation April 23, 2019 Assessment & Plan (1) Sacral decubitus ulcer: continue zosyn, can stop dapto. would give min 4 weeks. could use renal dosed levaquin as alternative. continue local wound care. History of Present Illness Attending Physician: Naif Skelton MD pt admitted with worsening wound. was evaluated by wound center felt to have dermatitis associated. would culture obtained on 04/21 - growing Morganella, resistant to amp/sulbactam and imipenem only. she is currently on zosyn and dapto and tolerating well. she is afebrile. wbc initially 19, now 16. creat 5, on HD. procalcitonin elevated at 57. CT abd on 04/20 negative for osteo. For OR. pt states she is tired, no complaints of f/c. no pain, no abd pain. no cp. Allergies Allergy/AdvReac Type Severity Reaction Status Date / Time phenytoin Allergy Intermediate HIVES AND Verified 04/20/19 18:19 MOUTH ULCERS codeine AdvReac Mild VOMITTING Verified 04/20/19 18:19 Bactrim AdvReac Unknown "FEELS Verified 10/23/18 12:53 LIKE KNIVES ARE IN MY HEAD" hydrochlorothiazide AdvReac Unknown SEE COMMENT Verified 04/20/19 18:19 sulfamethoxazole AdvReac Unknown "FEELS Verified 04/20/19 18:19 LIKE KNIVES ARE IN MY HEAD" trimethoprim AdvReac Unknown "FEELS Verified 04/20/19 18:19 LIKE KNIVES ARE IN MY HEAD" Dust Allergy Mild SINUS Uncoded 04/20/19 18:19 INFECTIONS Home Medications Home Medications Medication Instructions Recorded Confirmed Type atorvastatin 20 mg PO QAM 06/15/18 04/20/19 History cholecalciferol (vitamin D3) 1,000 unit PO QAM 06/15/18 04/20/19 History [Vitamin D3] levetiracetam 500 mg PO BID 06/15/18 04/20/19 History omeprazole 20 mg PO QAM 06/15/18 04/20/19 History trazodone 50 mg PO HS PRN 06/15/18 04/20/19 History fexofenadine [Lulu Allergy] 180 mg PO DAILY PRN 09/18/18 04/20/19 History metoprolol tartrate 50 mg PO BID #60 tab 09/21/18 04/20/19 Rx brinzolamide-brimonidine 1 drp OPB BID 02/21/19 04/20/19 History prednisone 10 mg PO DAILY 02/21/19 04/20/19 History hydralazine 12.5 mg PO BID #30 tab 03/03/19 04/20/19 Rx amlodipine [Norvasc] 5 mg PO BID 04/20/19 04/20/19 History warfarin 1 mg PO QPM 04/20/19 04/20/19 History Patient History Medical History (Updated 04/22/19 @ 20:59 by Marc Hutchinson, DO) Atrial fibrillation (Chronic) ON ELIQUIS Chemical dermatitis Chronic sinusitis (Chronic) Exertional dyspnea GERD (gastroesophageal reflux disease) (Chronic) Glaucoma (Chronic) Hyperlipidemia (Chronic) Hypertension (Chronic) Neuropathy (Chronic) Osteoarthritis (Chronic) Seizure disorder (Chronic) single episode in 2005 Valvular heart disease (Chronic) MILD AR/MR/TR PER 07/2018 ECHO Surgical History History of bilateral tubal ligation (Chronic) History of cataract surgery (Chronic) B/L History of cholecystectomy (Chronic) History of dilatation and curettage (Chronic) History of tonsillectomy (Chronic) History of tooth extraction (Chronic) History of total shoulder replacement (Chronic) RIGHT REVERSE TOTAL SHOULDER S/P correction of deviated nasal septum (Chronic) S/P placement of cardiac pacemaker (Chronic) 09/18/18 Family History Other Breast cancer Social History Preferred Language: Spanish Communication Ability: Effective Visual Impairment: No Limitations Hearing Ability: Normal Claims Coordinator Required: No Beliefs That Will Affect Care: None marital status: Current Living Situation: Spouse current occupational status: retired Feels Safe at Home: Yes Smoking Status: Former smoker Tobacco Type: cigarettes ; packs per day: 0.5 ; Cigarettes Per Day: Smoked ~1/2 ppd x ~15 years (unsure) ; Second Hand Exposure: No ; Hx Alcohol Use: No Hx Substance Use: No Childhood Exposure to Second-Hand Smoke: No Review of Systems Review of Systems: All systems reviewed & are unremarkable except as noted in HPI & below Physical Exam Constitutional: WD/WN, vitals as above Eyes: PERRL, conjunctivae normal, anicteric sclerae ENMT: external ear and nose normal, oropharynx normal Neck: normal visual inspection Respiratory: normal respiratory effort, lungs clear to auscultation Cardiovascular: RRR, no murmur, no edema Gastrointestinal (Abdomen): normal bowel sounds, soft, nontender, no hepatosplenomegaly Musculoskeletal: Head/Neck/Chest: + head abnormal to inspection, normocephalic and head atraumatic Skin: no rashes, warm and dry Psychiatric: A+Ox3, euthymic affect Results & Data Vital Signs (Past 12 Hours) Vital Signs Temp Pulse Pulse Pulse Resp BP Pulse Ox 04/23/19 13:35 36.3 C L 69 14 105/58 L 90 04/23/19 12:30 36.3 C L 70 14 104/66 93 04/23/19 12:00 36.3 C L 70 14 117/70 93 04/23/19 11:45 36.3 C L 68 16 100/61 93 04/23/19 11:30 36.3 C L 70 14 109/68 100 04/23/19 11:15 36.3 C L 70 14 117/69 100 04/23/19 11:00 68 14 119/72 100 04/23/19 10:38 73 20 105/75 100 04/23/19 10:33 72 20 129/68 100 04/23/19 10:28 73 20 124/72 93 04/23/19 10:23 70 20 104/68 95 04/23/19 10:18 70 20 104/68 95 04/23/19 10:15 70 20 103/65 93 04/23/19 10:10 70 20 117/66 95 04/23/19 10:05 70 20 110/73 99 04/23/19 10:00 70 18 143/86 H 100 04/23/19 09:55 70 18 140/75 100 04/23/19 09:52 70 20 130/75 100 04/23/19 09:05 36.4 C L 70 18 133/68 96 04/23/19 08:06 36.7 C 68 18 114/72 95 04/23/19 04:08 36.5 C 68 21 113/68 95 Laboratory Results Microbiology 04/21/19 04:57 Sacrum Gram Stain - Final 04/21/19 04:57 Sacrum Wound Culture - Final Morganella morganii 04/20/19 18:47 Blood Aerobic Blood Culture - Preliminary No growth in Aerobic bottle after 48 hours. 04/20/19 18:47 Blood Anaerobic Blood Culture - Final 04/20/19 17:21 Blood Aerobic Blood Culture - Preliminary No growth in Aerobic bottle after 48 hours. 04/20/19 17:21 Blood Anaerobic Blood Culture - Preliminary No growth in Anaerobic bottle after 48 hours. PG Care Time/CCT Total # of Minutes Spent Total Time Spent with Patient: Total time spent is greater than 50% in coordination of care (as documented) at patient's floor/unit and/or counseling patient:
--- NOTE | 2019-04-23 18:53 | Dialysis Progress Note ---
Date of Service April 23, 2019 Assessment & Plan (1) ESRD (end stage renal disease) on dialysis: unfortunately no renal recovery since NADIA in February and now esrd; while she reported oligoanuria at clinic not seen here (800 uop ON) -HD tomorrow per routine -hyponatremia reflects progressive chronic volume overload for her should improve w/ UF for dialysis -daily bmp -off clears now and will put her on 1.2L FR (2) Anemia of chronic disease: check hgb q24-48 hrs; has been stable in 10-11s; t stn 24% on 04/23 -epo w/ HD (3) Sacral decubitus ulcer: per primary service and wound team (4) Malposition of peritoneal dialysis catheter: in position on presentation but not now -will remove today; have replaced in am; vascular input appreciated Subjective seen on HD this evening/ very tired after procedure, slow to waken. bp and HR labile on HD >> had to get fluid back >> on track for about 2.3L UF edema unchanged; no sob; some N Review of Systems Review of Systems: All systems reviewed & are unremarkable except as noted in HPI & below Physical Exam Constitutional: well developed, well nourished and + frail appearing; no acute distress (dosing mostly; on RA) Eyes: EOM intact bilaterally ENMT: Ears: no external ear abnormality Nose: no external nose abnormality Mouth: + dry oral mucous membranes Neck: no nuchal rigidity Respiratory: normal respiratory effort Auscultation: lungs clear to auscultation bilaterally, + diminished lung sounds and + rhonchi Cardiovascular: Rate/Rhythm: regular rate and regular rhythm Extremities: + edema (3+ BLE) Gastrointestinal (Abdomen): Inspection/Auscultation: normal bowel sounds Percussion/Palpation: abdomen soft; abdomen nontender Musculoskeletal: Extremities: strength 5/5 throughout Skin: no rashes, warm and dry Neurologic: jett Psychiatric: Orientation: alert, oriented to person and oriented to place Affect: + flat affect Results & Data Vital Signs (Past 12 Hours) Vital Signs Temp Pulse Pulse Pulse Pulse Resp BP 04/23/19 18:40 81 81/26 L 04/23/19 18:20 83 109/28 L 04/23/19 18:00 69 86/59 L 04/23/19 17:40 78 91/46 L 01/07/20 17:20 71 93/40 L 04/23/19 17:00 87 128/57 L 04/23/19 16:40 113 H 93/55 L 04/23/19 16:20 94 H 111/23 L 04/23/19 16:00 68 99/41 L 04/23/19 15:40 70 114/61 04/23/19 15:20 69 113/60 04/23/19 15:00 69 102/53 L 04/23/19 14:40 36.4 C L 73 70 130/66 04/23/19 14:20 70 04/23/19 13:35 36.3 C L 69 14 04/23/19 12:30 36.3 C L 70 14 04/23/19 12:00 36.3 C L 70 14 04/23/19 11:45 36.3 C L 68 16 04/23/19 11:30 36.3 C L 70 14 04/23/19 11:15 36.3 C L 70 14 04/23/19 11:00 68 14 04/23/19 10:38 73 20 04/23/19 10:33 72 20 04/23/19 10:28 73 20 04/23/19 10:23 70 20 04/23/19 10:18 70 20 04/23/19 10:15 70 20 04/23/19 10:10 70 20 04/23/19 10:05 70 20 04/23/19 10:00 70 18 04/23/19 09:55 70 18 04/23/19 09:52 70 20 04/23/19 09:05 36.4 C L 70 18 04/23/19 08:06 36.7 C 68 18 BP Pulse Ox 04/23/19 18:40 04/23/19 18:20 04/23/19 18:00 04/23/19 17:40 04/23/19 17:20 04/23/19 17:00 04/23/19 16:40 04/23/19 16:20 04/23/19 16:00 04/23/19 15:40 04/23/19 15:20 04/23/19 15:00 04/23/19 14:40 04/23/19 14:20 04/23/19 13:35 105/58 L 90 04/23/19 12:30 104/66 93 04/23/19 12:00 117/70 93 04/23/19 11:45 100/61 93 04/23/19 11:30 109/68 100 04/23/19 11:15 117/69 100 04/23/19 11:00 119/72 100 04/23/19 10:38 105/75 100 04/23/19 10:33 129/68 100 04/23/19 10:28 124/72 93 04/23/19 10:23 104/68 95 04/23/19 10:18 104/68 95 04/23/19 10:15 103/65 93 04/23/19 10:10 117/66 95 04/23/19 10:05 110/73 99 04/23/19 10:00 143/86 H 100 04/23/19 09:55 140/75 100 04/23/19 09:52 130/75 100 04/23/19 09:05 133/68 96 04/23/19 08:06 114/72 95 Laboratory Results 04/23/19 06:31 04/23/19 06:31
[2019-04-23] MEDS: levETIRAcetam 250 MG TAB PO PRN (20:07)
[2019-04-23] MEDS: WARFARIN SOD 1 MG TAB PO SCH (20:07)
--- NOTE | 2019-04-23 20:22 | Hospitalist Progress Note ---
Date of Service April 23, 2019 Assessment & Plan (1) Sacral decubitus ulcer: Sacral decubitus ulcer Possible Sepsis Immunocompromised patient, chronic steroid Use --CT ABD:Moderate subcutaneous edema within the right posterior abdominal wall and left flank. This could be due to prior soft tissue contusion. Mild subcutaneous edema/fat stranding at the level the sacrum. However, no definite soft tissue ulceration or underlying bony destruction to suggest osteomyelitis. Small bilateral pleural effusions persist. Mild congestive change on the background of chronic interstitial thickening. This has improved. Cholecystectomy. No definite bowel wall thickening or obstruction. Mild ileus. Mildly distended bladder. --Lactate levels normalized with IV fluids Elevated procalcitonin levels --Blood cultures: No growth to date Wound Cx: Morganella --IV daptomycin discontinued --Continue IV Zosyn--needs at least 4 weeks of antibiotic therapy --Received IV fluids --Continue wound care --Appreciate ID input Supratherapeutic INR INR: 9.4>7.1>> 2.2 Received Vitamin K Monitor INR Resumed Coumadin today Chronic diastolic heart failure Volume Overload ESRD Last EF: 60-65% Volume status managed with HD Patient is on MWF dialysis Appreciate Nephrology help Dialysis once tunneled catheter placement today Hyponatremia Hypochloremia Due to Volume overload Monitor BMP No change in mental status Sick sinus syndrome S/P PPM On Metoprolol Resumed Coumadin today Monitor INR ESRD Anemia of Chronic disease Appreciate Nephrology Input on Dialysis MWF Hypertension BP relatively low Hold amlodipine, hydralazine for now Adjust medications as needed Hyperlipidemia Hold statin while on daptomycin H/O Pituitary tumor S/P Surgery Seizure disorder Continue Keppra Hyperglycemia likely steroid-induced HbA1C:4.7 DVT Px: Coumadin CODE STATUS Full Code Disposition Needs Rehab Placement Family unable to take care of the patient Case Management consulted for discharge planning Subjective Patient is seen and examined at bedside this morning Continues to complain of decubitus wound pain Plan for dialysis catheter placement today Noted hypoglycemic this morning, asymptomatic Also plan for dialysis after catheter placement today Denies any chest pain, SOB, dizziness, nausea, abdominal pain Review of Systems Review of Systems: All systems reviewed & are unremarkable except as noted in HPI & below Physical Exam Physical Exam: Physical Exam: Vitals signs as noted above General Appearance:Obese, no apparent distress Head: normocephalic, Atraumatic Eyes: normal inspection, EOMI Neck: supple, Trachea midline Respiratory/Chest: Normal breath sounds, CTA Cardiovascular: S1, S2, No murmur Abdomen/GI:Soft, Non tender, Bowel sounds present Sacral Wound--Patient refused Extremities/Musculoskelatal:normal inspection, B/L LE 2+ edema Neurologic/Psych:AAOX3, grossly no focal neurological deficits Skin: normal color, warm Results & Data Vital Signs (Past 12 Hours) Vital Signs Temp Pulse Pulse Pulse Pulse Resp BP 04/23/19 18:44 37.2 C 69 69 112/37 L 04/23/19 18:40 81 81/26 L 04/23/19 18:20 83 109/28 L 04/23/19 18:00 69 86/59 L 04/23/19 17:40 78 91/46 L 04/23/19 17:20 71 93/40 L 04/23/19 17:00 87 128/57 L 04/23/19 16:40 113 H 93/55 L 04/23/19 16:20 94 H 111/23 L 04/23/19 16:00 68 99/41 L 04/23/19 15:40 70 114/61 04/23/19 15:20 69 113/60 04/23/19 15:00 69 102/53 L 04/23/19 14:40 36.4 C L 73 70 130/66 04/23/19 14:20 70 04/23/19 13:35 36.3 C L 69 14 04/23/19 12:30 36.3 C L 70 14 04/23/19 12:00 36.3 C L 70 14 04/23/19 11:45 36.3 C L 68 16 04/23/19 11:30 36.3 C L 70 14 04/23/19 11:15 36.3 C L 70 14 04/23/19 11:00 68 14 04/23/19 10:38 73 20 04/23/19 10:33 72 20 04/23/19 10:28 73 20 04/23/19 10:23 70 04/23/19 10:18 70 20 04/23/19 10:15 70 20 04/23/19 10:10 70 20 04/23/19 10:05 70 04/23/19 10:00 70 18 04/23/19 09:55 70 18 04/23/19 09:52 70 20 04/23/19 09:05 36.4 C L 70 18 BP Pulse Ox 04/23/19 18:44 112/37 L 04/23/19 18:40 04/23/19 18:20 04/23/19 18:00 04/23/19 17:40 04/23/19 17:20 04/23/19 17:00 04/23/19 16:40 04/23/19 16:20 04/23/19 16:00 04/23/19 15:40 04/23/19 15:20 04/23/19 15:00 04/23/19 14:40 04/23/19 14:20 04/23/19 13:35 105/58 L 90 04/23/19 12:30 104/66 93 04/23/19 12:00 117/70 93 04/23/19 11:45 100/61 93 04/23/19 11:30 109/68 100 04/23/19 11:15 117/69 100 04/23/19 11:00 119/72 100 04/23/19 10:38 105/75 100 04/23/19 10:33 129/68 100 04/23/19 10:28 124/72 93 04/23/19 10:23 104/68 95 04/23/19 10:18 104/68 95 04/23/19 10:15 103/65 93 04/23/19 10:10 117/66 95 04/23/19 10:05 110/73 99 04/23/19 10:00 143/86 H 100 04/23/19 09:55 140/75 100 04/23/19 09:52 130/75 100 04/23/19 09:05 133/68 96 Laboratory Results Short CBC 04/23/19 Range/Units 06:31 WBC 16.51 H (4.8-10.8) K/uL Hgb 10.1 L (12.0-16.0) g/dL Hct 30.9 L (37-47) % Plt Count 215 (130-400) K/uL BMP 04/23/19 06:31 Sodium 119 L* Potassium 5.0 Chloride 84 L Carbon Dioxide 22 BUN 50 H Creatinine 5.11 H* D Glucose 68 L Calcium 8.3 L
[2019-04-23] MEDS: CARBOHYDRATES FOR HYPOGLYCEMIA PO PRN (21:31)
[2019-04-23] MEDS ORDERED: DEXTROSE 5% 1,000 ML IV ONE (21:53)
[2019-04-24] MEDS: PIPERACILLIN/TAZOBACTAM 3.375 GM in DEXTROSE 5% 100 ML IV SCH (01:48)
[2019-04-24 06:57] LABS: Nucleated RBC # (auto) 0.03 K/uL (0-0); Nucleated RBC % (auto) 0.1 %
[2019-04-24 07:05] LABS: INR 2.3 (0.9-1.1); Prothrombin Time 22.5 Seconds (9.0-12.0)
[2019-04-24 07:17] LABS: Hematocrit (blood only) 27.4 % (37-47); Hemoglobin 8.8 g/dL (12.0-16.0); Mean Corpuscular Hemoglobin 27.2 pg (25-34); Mean Corpuscular Hgb Conc 32.1 g/dL (32-36); Mean Corpuscular Volume 84.6 fL (80-100); Mean Platelet Volume 10.7 fL (7.4-10.4); Platelet Count 105 K/uL (130-400); Platelet Estimate Decreased (Normal); RDW Coefficient of Variation 17.5 % (11.5-14.5); RDW Standard Deviation 54.9 fL (36.4-46.3); Red Blood Count 3.24 M/uL (4.2-5.4); White Blood Count 21.14 K/uL (4.8-10.8)
[2019-04-24 07:34] LABS: Calcium 8.1 mg/dl (8.5-10.1); Creatinine Clr Calc Pharmacy 17.1 ml/min; Est GFR (Non-African American) 14.7; Potassium 3.7 mmol/L (3.5-5.1)
[2019-04-24] MEDS ORDERED: SODIUM CHLORIDE 0.9% 1000ML 1,000 ML IV PRN (08:27)
[2019-04-24] MEDS: predniSONE 10 MG TABLET PO SCH (08:51)
[2019-04-24] MEDS: levETIRAcetam 500 MG TAB PO SCH (08:51)
[2019-04-24] MEDS: METOPROLOL TARTRATE 50 MG TAB PO SCH ×2 (08:55→20:16)
[2019-04-24] MEDS ORDERED: EPOETIN ALFA 20,000 UNITS/ML VIAL IV SCH (09:30)
[2019-04-24] MEDS: OXYCODONE HCL IR 5 MG TAB (IMMEDIATE RELEASE) PO PRN (10:00)
[2019-04-24] MEDS: CARBOHYDRATES FOR HYPOGLYCEMIA PO PRN ×2 (13:21→16:36)
--- NOTE | 2019-04-24 14:53 | Hospitalist Progress Note ---
Date of Service April 24, 2019 Assessment & Plan (1) Sacral decubitus ulcer: Possible Sepsis on admission with elevated lactate and pro calcitonin level Immunocompromised patient, chronic steroid Use --CT ABD:Moderate subcutaneous edema within the right posterior abdominal wall and left flank. This could be due to prior soft tissue contusion. Mild subcutaneous edema/fat stranding at the level the sacrum. However, no definite soft tissue ulceration or underlying bony destruction to suggest osteomyelitis. Small bilateral pleural effusions persist. Mild congestive change on the background of chronic interstitial thickening. This has improved. Cholecystectomy. No definite bowel wall thickening or obstruction. Mild ileus. Mildly distended bladder. Blood cultures: No growth to date Wound Cx: Morganella Received IV daptomycin discontinued Continued IV Zosyn and changed to oral Cefdinir from today-to continue for a total of 4 week Continue wound care -appreciate input and recommendation Appreciate ID input Supratherapeutic INR INR: 9.4>7.1>> 2.2 Received Vitamin K Resumed Coumadin subsequently INR remains therapeutic Chronic diastolic heart failure Volume Overload on presentation ESRD Last EF: 60-65% Volume status managed with HD Patient is on MWF dialysis Appreciate Nephrology help Hyponatremia Hypochloremia Due to Volume overload Monitor BMP No change in mental status Sodium 129 and chloride 93 as of 04/24/2019 Sick sinus syndrome S/P PPM On Metoprolol Resumed Coumadin today Monitor INR ESRD Anemia of Chronic disease S/P Insertion of Perm Catheter, Right Internal Jugular Approach-by Dr. Sifuentes on seventh of this month Appreciate Nephrology Input on Dialysis MWF Hypertension BP relatively low Hold amlodipine, hydralazine for now Adjust medications as needed Hyperlipidemia Hold statin while on daptomycin H/O Pituitary tumor S/P Surgery Seizure disorder Continue Keppra Hyperglycemia likely steroid-induced HbA1C:4.7 DVT Px: Coumadin CODE STATUS Full Code Disposition Needs Rehab Placement Family unable to take care of the patient Case Management consulted for discharge planning Has been living with her who has been helping her in and out of bed Subjective 04/24/2019 The patient was seen and examined in medical floor She has been weak and lethargic but denies any other symptoms She has not been out of bed since admission Denies any fever and/or chills, any nausea and/or vomiting or any pain in pelvis Review of Systems Review of Systems: All systems reviewed and are unremarkable except as noted below Physical Exam Physical Exam: Lying in bed comfortably Constitutional: well developed, well nourished, + ill appearing and + morbidly obese; no acute distress (dosing mostly; on RA) and not in distress Eyes: PERRL, conjunctivae normal, anicteric sclerae EOM intact bilaterally ENMT: Mallampati Class: II Neck: trachea midline, no thyromegaly normal visual inspection; no nuchal rigidity Respiratory: normal respiratory effort and + cough (w/ deep breaths for lung exam) Auscultation: lungs clear to auscultation bilaterally, + diminished lung sounds and + rhonchi Cardiovascular: RRR, no murmur, no edema Rate/Rhythm: regular rate, regular rhythm and + irregularly irregular Vessels: + abnormal peripheral pulses Extremities: + edema (3+ BLE) and + vascular access device (R chest permcath hanging from exit site, ~10 inches of catheter visible.) Gastrointestinal (Abdomen): Inspection/Auscultation: normal bowel sounds Percussion/Palpation: abdomen soft; abdomen nontender Musculoskeletal: no cyanosis or clubbing, extremities motor strength 5/5 Head/Neck/Chest: + head abnormal to inspection, normocephalic and head atraumatic Extremities: strength 5/5 throughout Skin: no rashes, warm and dry Neurologic: moves all extremities and awake; no focal motor deficits and not confused Psychiatric: A+Ox3, euthymic affect Orientation: alert, oriented x 3, oriented to person and oriented to place Affect: + flat affect Insight: good insight Judgement: good judgement Lymphatic: no cervical or axillary lymphadenopathy Results & Data Vital Signs (Past 12 Hours) Vital Signs Temp Pulse Pulse Pulse Resp BP BP 04/24/19 12:22 50 L 91/75 L 04/24/19 12:00 65 129/83 04/24/19 11:40 61 112/75 04/24/19 11:20 61 112/75 04/24/19 11:00 72 125/88 04/24/19 10:40 72 141/75 H 04/24/19 10:20 70 132/69 04/24/19 10:00 70 143/83 H 04/24/19 09:40 70 138/82 04/24/19 09:20 70 99/76 L 04/24/19 06:57 36.8 C 69 18 103/67 04/24/19 03:11 36.5 C 70 19 97/60 L Pulse Ox 04/24/19 12:22 04/24/19 12:00 04/24/19 11:40 04/24/19 11:20 04/24/19 11:00 04/24/19 10:40 04/24/19 10:20 04/24/19 10:00 04/24/19 09:40 04/24/19 09:20 04/24/19 06:57 97 04/24/19 03:11 90 Laboratory Results Short CBC 04/24/19 Range/Units 06:22 WBC 21.14 H (4.8-10.8) K/uL Hgb 8.8 L (12.0-16.0) g/dL Hct 27.4 L (37-47) % Plt Count 105 L D (130-400) K/uL BMP 04/24/19 06:22 Sodium 129 L D Potassium 3.7 D Chloride 93 L Carbon Dioxide 25 BUN 21 H D Creatinine 3.02 H D Glucose 66 L Calcium 8.1 L Medications Administered Current Inpatient Medications Acetaminophen (Tylenol) 650 mg PO Q4H PRN PRN Reason: Pain or Fever Stop: 05/20/19 22:06 Amlodipine Besylate (Norvasc) 2.5 mg PO BID [facility] Stop: 05/21/19 20:59 Last Admin: 04/22/19 09:25 Dose: Not Given Documented by: Cefdinir (Omnicef Cap) 300 mg PO Q24H [facility]; Protocol Stop: 05/04/19 15:59 Epoetin Sudhakar (Procrit) 20,000 units IV TODAY@0930 [facility] Stop: 04/24/19 18:00 Last Admin: 04/24/19 11:19 Dose: 20,000 units Documented by: Glucagon (Glucagen) 1 mg SQ UD PRN; Protocol PRN Reason: Hypoglycemia Protocol Stop: 05/23/19 08:36 Glucose (Dex4 Glucose) 4 - 8 tabs PO UD PRN; Protocol PRN Reason: Hypoglycemia Protocol Stop: 05/23/19 08:36 Glucose (Glucose 40%) 15 - 30 gm PO UD PRN; Protocol PRN Reason: Hypoglycemia Protocol Stop: 05/23/19 08:36 Hydralazine HCl (Apresoline) 12.5 mg PO BID [facility] Stop: 05/21/19 08:59 Last Admin: 04/22/19 09:26 Dose: Not Given Documented by: Hydromorphone HCl (Dilaudid) 0.25 mg IV Q3H PRN PRN Reason: Pain Stop: 05/04/19 22:32 Last Admin: 04/22/19 14:49 Dose: 0.25 mg Documented by: Promethazine HCl 12.5 mg/ (Sodium Chloride) 50.5 mls @ 202 mls/hr IV Q6H PRN PRN Reason: Nausea And Vomiting Stop: 05/20/19 22:32 Dextrose (D5w) 1,000 mls @ 40 mls/hr IV .Q24H [facility] Stop: 04/24/19 21:52 Last Admin: 04/23/19 21:59 Dose: 40 mls/hr Documented by: Levetiracetam (Keppra) 500 mg PO DAILY [facility] Stop: 05/24/19 08:59 Last Admin: 04/24/19 08:51 Dose: 500 mg Documented by: Levetiracetam (Keppra) 250 mg PO DAILY@1600 PRN PRN Reason: AFTER EACH DIALYSIS Stop: 05/23/19 14:32 Last Admin: 04/23/19 20:07 Dose: 250 mg Documented by: Metoprolol Tartrate (Lopressor) 50 mg PO BID [facility] Stop: 05/21/19 08:59 Last Admin: 04/24/19 08:55 Dose: Not Given Documented by: Miconazole Nitrate (Desenex) 1 appln EXT PRN PRN PRN Reason: Affected Skin Folds Stop: 05/20/19 23:18 Miscellaneous (Order Awaiting Action) 1 ea N/A QS [facility] Stop: 05/21/19 07:59 Last Admin: 04/24/19 08:55 Dose: Not Given Documented by: Miscellaneous (Carbohydrates For Hypoglycemia) 15 - 30 gm PO UD PRN PRN Reason: Hypoglycemia Protocol Stop: 05/23/19 08:36 Last Admin: 04/24/19 13:21 Dose: 15 gm Documented by: Miscellaneous (Pending Order) 1 ea N/A DAILY@1600 [facility] Stop: 05/24/19 15:59 Nitroglycerin (Nitrostat) 0.4 mg SL UD PRN PRN Reason: Chest Pain Stop: 05/20/19 22:06 Oxycodone HCl (Roxicodone Immediate Rel) 5 mg PO Q4H PRN PRN Reason: Pain Stop: 05/04/19 22:32 Last Admin: 04/24/19 10:00 Dose: 5 mg Documented by: Prednisone (Prednisone) 10 mg PO DAILY [facility] Stop: 05/21/19 08:59 Last Admin: 04/24/19 08:51 Dose: 10 mg Documented by: Trazodone HCl (Desyrel) 50 mg PO HS PRN PRN Reason: Sleep Stop: 05/20/19 22:06 Warfarin Sodium (Coumadin) 1 mg PO DAILY@1600 [facility] Stop: 05/23/19 15:59 Last Admin: 04/23/19 20:07 Dose: 1 mg Documented by:
[2019-04-24] MEDS: levETIRAcetam 250 MG TAB PO PRN (16:35)
[2019-04-24] MEDS: CEFDINIR 300 MG CAP PO SCH (16:35)
[2019-04-24] MEDS: WARFARIN SOD 1 MG TAB PO SCH (16:35)
[2019-04-24] MEDS: GLUCOSE 10 TABS/TUBE PO PRN (17:03)
[2019-04-24] MEDS ORDERED: Nursing to Pharmacy Communication ONE (17:47)
[2019-04-24] MEDS: DEXTROSE 5% 1,000 ML IV SCH ×2 (18:29→19:32)
--- NOTE | 2019-04-24 19:52 | Dialysis Progress Note ---
Date of Service April 24, 2019 Assessment & Plan (1) ESRD (end stage renal disease) on dialysis: unfortunately no renal recovery since NADIA in February and now esrd; aiming for 2.5 L off today but may not get this; catheter was placed 04/23 after other fell out 04/22 -HD tomorrow per routine -hyponatremia reflects progressive chronic volume overload for her -- improved w/ dialysis -daily bmp -cont 1.2L FR (2) Anemia of chronic disease: check hgb q24-48 hrs; has been stable in 10-11s; t stn 24% on 04/23 -epo w/ HD (3) Sacral decubitus ulcer: per primary service and wound team Subjective seen on dialysis at 1030 this am; had just had pain meds and minimally interacti ve - 30 min prior per nurse pt screaming in pain from decub. no sob; no current pain, no n/v, no bleeding Review of Systems Review of Systems: All systems reviewed & are unremarkable except as noted in HPI & below Physical Exam Constitutional: well developed, well nourished and + frail appearing; no acute distress (again dosing mostly; on RA) Eyes: EOM intact bilaterally ENMT: Ears: no external ear abnormality Nose: no external nose abnormality Mouth: + dry oral mucous membranes Neck: no nuchal rigidity Respiratory: normal respiratory effort Auscultation: lungs clear to auscultation bilaterally and + diminished lung sounds Cardiovascular: Rate/Rhythm: regular rate and regular rhythm Extremities: + edema (2-3+ BLE) Gastrointestinal (Abdomen): Inspection/Auscultation: normal bowel sounds Percussion/Palpation: abdomen soft; abdomen nontender Musculoskeletal: Extremities: strength 5/5 throughout Skin: no rashes, warm and dry Neurologic: jett, fluent but limited speech, no tremor Psychiatric: Orientation: alert, oriented to person and oriented to place Affect: + flat affect Insight: good insight Judgement: good judgement Results & Data Vital Signs (Past 12 Hours) Vital Signs Temp Pulse Pulse Pulse Resp BP BP 04/24/19 19:31 36.4 C L 72 16 107/68 04/24/19 15:27 65 18 115/72 04/24/19 12:22 50 L 91/75 L 04/24/19 12:00 65 129/83 04/24/19 11:40 61 112/75 04/24/19 11:20 61 112/75 04/24/19 11:00 72 125/88 04/24/19 10:40 72 141/75 H 04/24/19 10:20 70 132/69 04/24/19 10:00 70 143/83 H 04/24/19 09:40 70 138/82 04/24/19 09:20 70 99/76 L Pulse Ox 04/24/19 19:31 94 04/24/19 15:27 100 04/24/19 12:22 04/24/19 12:00 04/24/19 11:40 04/24/19 11:20 04/24/19 11:00 04/24/19 10:40 04/24/19 10:20 04/24/19 10:00 04/24/19 09:40 04/24/19 09:20 Laboratory Results 04/24/19 06:22 04/24/19 14:25
[2019-04-25 06:45] LABS: Mean Corpuscular Hgb Conc 31.8 g/dL (32-36); Nucleated RBC # (auto) 0.09 K/uL (0-0); Nucleated RBC % (auto) 0.5 %
[2019-04-25 06:52] LABS: INR 1.6 (0.9-1.1); Prothrombin Time 16.1 Seconds (9.0-12.0)
[2019-04-25 06:57] LABS: Hematocrit (blood only) 27.7 % (37-47); Hemoglobin 8.8 g/dL (12.0-16.0); RDW Coefficient of Variation 17.3 % (11.5-14.5); RDW Standard Deviation 53.9 fL (36.4-46.3); Red Blood Count 3.26 M/uL (4.2-5.4); White Blood Count 17.97 K/uL (4.8-10.8)
[2019-04-25] MEDS ORDERED: EPOETIN ALFA 10,000 UNITS/ML VIAL IV ONE (07:00)
[2019-04-25] MEDS ORDERED: SODIUM CHLORIDE 0.9% 1000ML 1,000 ML IV PRN (07:00)
[2019-04-25 07:13] LABS: Acanthocytes 1+; Basophils # (auto) 0.01 K/uL (0-0.2); Basophils % (auto) 0.1 %; Eosinophils # (auto) 0.05 K/uL (0-0.5); Eosinophils % (auto) 0.3 %; Hypochromasia Present; Immature Granulocytes # (auto) 0.27 K/uL (0.00-0.02); Immature Granulocytes % (auto) 1.5 %; Lymphocytes # (auto) 1.72 K/uL (1.2-3.4); Lymphocytes % (auto) 9.6 %; Mean Platelet Volume 11.9 fL (7.4-10.4); Monocytes # (auto) 1.27 K/uL (0.11-0.59); Monocytes % (auto) 7.1 %; Neutrophils # (auto) 14.65 K/uL (1.4-6.5); Neutrophils % (auto) 81.4 %; Platelet Count 109 K/uL (130-400); Platelet Estimate Decreased (Normal); Polychromasia 1+; Schistocytes 1+; Toxic Vacuolation 1+
[2019-04-25 07:18] LABS: BUN Creatinine Ratio 6.2 (10-20); Calcium 7.9 mg/dl (8.5-10.1); Creatinine Clr Calc Pharmacy 22.6 ml/min; Est GFR (African American) 23.9; Est GFR (Non-African American) 20.6; Potassium 3.5 mmol/L (3.5-5.1)
[2019-04-25] MEDS: predniSONE 10 MG TABLET PO SCH (10:55)
[2019-04-25] MEDS: DEXTROSE 5% 1,000 ML IV SCH (10:56)
[2019-04-25] MEDS ORDERED: WARFARIN SOD 2 MG TAB PO SCH (16:00)
--- NOTE | 2019-04-25 16:16 | Hospitalist Progress Note ---
Date of Service April 25, 2019 Assessment & Plan (1) Sacral decubitus ulcer: Possible Sepsis on admission with elevated lactate and pro calcitonin level Immunocompromised patient, chronic steroid Use --CT ABD:Moderate subcutaneous edema within the right posterior abdominal wall and left flank. This could be due to prior soft tissue contusion. Mild subcutaneous edema/fat stranding at the level the sacrum. However, no definite soft tissue ulceration or underlying bony destruction to suggest osteomyelitis. Small bilateral pleural effusions persist. Mild congestive change on the background of chronic interstitial thickening. This has improved. Cholecystectomy. No definite bowel wall thickening or obstruction. Mild ileus. Mildly distended bladder. Blood cultures: No growth to date Wound Cx: Morganella Received IV daptomycin discontinued Continued IV Zosyn and changed to oral Cefdinir from today-to continue for a total of 4 week Continue wound care -appreciate input and recommendation Appreciate ID input and recommendation We will give oral antibiotic to continue for 4 weeks in total Supratherapeutic INR INR: 9.4>7.1>> 2.2 Received Vitamin K Resumed Coumadin subsequently INR remains therapeutic Chronic diastolic heart failure Volume Overload on presentation ESRD Last EF: 60-65% Volume status managed with HD Patient is on MWF dialysis Appreciate Nephrology help Hyponatremia Hypochloremia Due to Volume overload No change in mental status Sodium 129 and chloride 93 as of 04/24/2019 Hyponatremia is not yet improved We will change D5-D5 NS and continue dialysis Monitor PRP Sick sinus syndrome S/P PPM On Metoprolol Resumed Coumadin today Monitor INR ESRD Anemia of Chronic disease S/P Insertion of Perm Catheter, Right Internal Jugular Approach-by Dr. Sifuentes on seventh of this month Appreciate Nephrology Input on Dialysis MWF Hypertension BP relatively low Hold amlodipine, hydralazine for now Adjust medications as needed Hyperlipidemia Hold statin while on daptomycin H/O Pituitary tumor S/P Surgery Seizure disorder Continue Keppra Hyperglycemia likely steroid-induced HbA1C:4.7 DVT Px: Coumadin CODE STATUS Full Code Disposition Needs Rehab Placement Family unable to take care of the patient Case Management consulted for discharge planning Has been living with her who has been helping her in and out of bed Refusing PT and OT therapy She was advised to participate in PT and OT to get better Awaiting placement Subjective 04/24/2019 The patient was seen and examined in medical floor She has been weak and lethargic but denies any other symptoms She has not been out of bed since admission Denies any fever and/or chills, any nausea and/or vomiting or any pain in pelvis 04/25/2019 Patient was seen and examined in medical floor She remains very weak and lethargic and does not want to participate in physical therapy She has not been eating or drinking enough and her sodium remains low Denies any other significant symptoms Review of Systems Review of Systems: All systems reviewed and are unremarkable except as noted below Constitutional: + weakness and + anorexia Respiratory: no cough and no dyspnea Physical Exam Physical Exam: Lying in bed comfortably Constitutional: well developed, well nourished, + ill appearing and + morbidly obese; not in distress Eyes: PERRL, conjunctivae normal, anicteric sclerae EOM intact bilaterally ENMT: Mallampati Class: II Neck: trachea midline, no thyromegaly normal visual inspection; no nuchal rigidity Respiratory: normal respiratory effort and + cough (w/ deep breaths for lung exam) Auscultation: lungs clear to auscultation bilaterally, + diminished lung sounds and + rhonchi Cardiovascular: Rate/Rhythm: regular rate, regular rhythm and + irregularly irregular Vessels: + abnormal peripheral pulses Extremities: + edema (3+ BLE) and + vascular access device (R chest permcath hanging from exit site, ~10 inches of catheter visible.) Gastrointestinal (Abdomen): Inspection/Auscultation: normal bowel sounds Percussion/Palpation: abdomen soft; abdomen nontender Musculoskeletal: Head/Neck/Chest: + head abnormal to inspection, normocephalic and head atraumatic Skin: no rashes, warm and dry Neurologic: moves all extremities and awake; no focal motor deficits and not confused Psychiatric: A+Ox3, euthymic affect Orientation: alert, oriented x 3, oriented to person and oriented to place Affect: + flat affect Insight: good insight Judgement: good judgement Lymphatic: no cervical or axillary lymphadenopathy Results & Data Vital Signs (Past 12 Hours) Vital Signs Temp Pulse Pulse Resp BP BP Pulse Ox 04/25/19 14:01 81 112/39 L 04/25/19 13:40 81 91/47 L 04/25/19 13:20 70 91/50 L 04/25/19 13:00 81 106/45 L 04/25/19 12:30 36.8 C 73 04/25/19 10:59 36.3 C L 73 18 121/78 94 04/25/19 07:43 36.1 C L 68 18 116/76 95 04/25/19 07:24 70 04/25/19 04:14 36.6 C 74 18 121/64 96 Laboratory Results Short CBC 04/25/19 Range/Units 06:27 WBC 17.97 H (4.8-10.8) K/uL Hgb 8.8 L (12.0-16.0) g/dL Hct 27.7 L (37-47) % Plt Count 109 L (130-400) K/uL BMP 04/25/19 06:27 Sodium 125 L Potassium 3.5 Chloride 92 L Carbon Dioxide 26 BUN 14 Creatinine 2.28 H D Glucose 111 H Calcium 7.9 L Medications Administered Current Inpatient Medications Acetaminophen (Tylenol) 650 mg PO Q4H PRN PRN Reason: Pain or Fever Stop: 05/20/19 22:06 Amlodipine Besylate (Norvasc) 2.5 mg PO BID [facility] Stop: 05/21/19 20:59 Last Admin: 04/22/19 09:25 Dose: Not Given Documented by: Cefdinir (Omnicef Cap) 300 mg PO Q24H [facility]; Protocol Stop: 05/04/19 15:59 Last Admin: 04/24/19 16:35 Dose: 300 mg Documented by: Glucagon (Glucagen) 1 mg SQ UD PRN; Protocol PRN Reason: Hypoglycemia Protocol Stop: 05/23/19 08:36 Glucose (Dex4 Glucose) 4 - 8 tabs PO UD PRN; Protocol PRN Reason: Hypoglycemia Protocol Stop: 05/23/19 08:36 Last Admin: 04/24/19 17:03 Dose: 4 tabs Documented by: Glucose (Glucose 40%) 15 - 30 gm PO UD PRN; Protocol PRN Reason: Hypoglycemia Protocol Stop: 05/23/19 08:36 Last Admin: 04/24/19 17:11 Dose: 15 gm Documented by: Hydralazine HCl (Apresoline) 12.5 mg PO BID [facility] Stop: 05/21/19 08:59 Last Admin: 04/22/19 09:26 Dose: Not Given Documented by: Hydromorphone HCl (Dilaudid) 0.25 mg IV Q3H PRN PRN Reason: Pain Stop: 05/04/19 22:32 Last Admin: 04/22/19 14:49 Dose: 0.25 mg Documented by: Promethazine HCl 12.5 mg/ (Sodium Chloride) 50.5 mls @ 202 mls/hr IV Q6H PRN PRN Reason: Nausea And Vomiting Stop: 05/20/19 22:32 Dextrose/Sodium Chloride (D5w And Nss) 1,000 mls @ 60 mls/hr IV .[id number] [facility] Stop: 05/25/19 14:14 Levetiracetam (Keppra) 500 mg PO DAILY [facility] Stop: 05/24/19 08:59 Last Admin: 04/24/19 08:51 Dose: 500 mg Documented by: Levetiracetam (Keppra) 250 mg PO DAILY@1600 PRN PRN Reason: AFTER EACH DIALYSIS Stop: 05/23/19 14:32 Last Admin: 04/24/19 16:35 Dose: 250 mg Documented by: Metoprolol Tartrate (Lopressor) 50 mg PO BID [facility] Stop: 05/21/19 08:59 Last Admin: 04/24/19 20:16 Dose: 50 mg Documented by: Miconazole Nitrate (Desenex) 1 appln EXT PRN PRN PRN Reason: Affected Skin Folds Stop: 05/20/19 23:18 Miscellaneous (Order Awaiting Action) 1 ea N/A QS [facility] Stop: 05/21/19 07:59 Last Admin: 04/25/19 00:03 Dose: Not Given Documented by: Miscellaneous (Carbohydrates For Hypoglycemia) 15 - 30 gm PO UD PRN PRN Reason: Hypoglycemia Protocol Stop: 05/23/19 08:36 Last Admin: 04/24/19 16:36 Dose: 15 gm Documented by: Miscellaneous (Pending Order) 1 ea N/A DAILY@1600 [facility] Stop: 05/24/19 15:59 Last Admin: 04/24/19 16:49 Dose: 1 ea Documented by: Nitroglycerin (Nitrostat) 0.4 mg SL UD PRN PRN Reason: Chest Pain Stop: 05/20/19 22:06 Oxycodone HCl (Roxicodone Immediate Rel) 5 mg PO Q4H PRN PRN Reason: Pain Stop: 05/04/19 22:32 Last Admin: 04/24/19 10:00 Dose: 5 mg Documented by: Prednisone (Prednisone) 10 mg PO DAILY [facility] Stop: 05/21/19 08:59 Last Admin: 04/25/19 10:55 Dose: 10 mg Documented by: Trazodone HCl (Desyrel) 50 mg PO HS PRN PRN Reason: Sleep Stop: 05/20/19 22:06 Warfarin Sodium (Coumadin) 1 mg PO DAILY@1600 [facility] Stop: 05/23/19 15:59 Last Admin: 04/24/19 16:35 Dose: 1 mg Documented by: Warfarin Sodium (Coumadin) 2 mg PO TODAY@1600 [facility] Stop: 04/25/19 18:00
[2019-04-25] MEDS: D5W AND NSS 1,000 ML IV SCH (16:49)
[2019-04-25] MEDS: levETIRAcetam 500 MG TAB PO SCH (16:51)
[2019-04-25] MEDS: METOPROLOL TARTRATE 50 MG TAB PO SCH ×2 (16:54→22:18)
[2019-04-25] MEDS: CEFDINIR 300 MG CAP PO SCH (17:07)
--- NOTE | 2019-04-25 18:35 | Nephrology Progress Note ---
Date of Service April 25, 2019 Assessment & Plan (1) ESRD (end stage renal disease) on dialysis: unfortunately no renal recovery since NADIA in February and now esrd; aiming for 2.5 L off today and got this again today; catheter was placed 04/23 after other fell out 04/22 -HD tomorrow per routine -hyponatremia reflects progressive chronic volume overload for her -- improved w/ dialysis -daily bmp -cont 1.2L FR (2) Anemia of chronic disease: check hgb q24-48 hrs; has dropped some; t stn 24% on 04/23 -epo w/ HD (3) Sacral decubitus ulcer: per primary service and wound team (4) Thrombocytopenia: >50% drop this admission; running dialysis heparin free Present on Admission?: Yes Subjective tolerating HD well -- again 2.5L off today; no sob; pain for now well controlled; still quite tired; poor appetite still Review of Systems Review of Systems: All systems reviewed & are unremarkable except as noted in HPI & below Physical Exam Constitutional: well developed, well nourished and + frail appearing; no acute distress (again dosing but wakens fully; on RA) Eyes: EOM intact bilaterally ENMT: Ears: no external ear abnormality Nose: no external nose abnormality Mouth: + dry oral mucous membranes Neck: no nuchal rigidity Respiratory: normal respiratory effort Auscultation: lungs clear to auscu ltation bilaterally and + diminished lung sounds Cardiovascular: Rate/Rhythm: regular rate and regular rhythm Extremities: + edema (2+ BLE) Gastrointestinal (Abdomen): Inspection/Auscultation: normal bowel sounds Percussion/Palpation: abdomen soft; abdomen nontender Musculoskeletal: Extremities: strength 5/5 throughout Skin: no rashes, warm and dry Neurologic: jett, no tremor Psychiatric: Orientation: alert, oriented to person and oriented to place Affect: + flat affect Insight: good insight Judgement: good judgement Results & Data Vital Signs (Past 12 Hours) Vital Signs Temp Pulse Pulse Pulse Resp BP BP 04/25/19 17:13 36.8 C 91 H 04/25/19 16:50 65 131/71 04/25/19 16:00 78 108/62 04/25/19 15:40 72 106/60 04/25/19 15:20 78 113/32 L 04/25/19 15:00 73 101/31 L 04/25/19 14:40 69 104/41 L 04/25/19 14:20 78 100/40 L 04/25/19 14:01 81 112/39 L 04/25/19 13:40 81 91/47 L 04/25/19 13:20 70 91/50 L 04/25/19 13:00 81 106/45 L 04/25/19 12:30 36.8 C 73 04/25/19 10:59 36.3 C L 73 18 04/25/19 07:43 36.1 C L 68 18 04/25/19 07:24 70 BP Pulse Ox 04/25/19 17:13 108/62 04/25/19 16:50 04/25/19 16:00 04/25/19 15:40 04/25/19 15:20 04/25/19 15:00 04/25/19 14:40 04/25/19 14:20 04/25/19 14:01 04/25/19 13:40 04/25/19 13:20 04/25/19 13:00 04/25/19 12:30 04/25/19 10:59 121/78 94 04/25/19 07:43 116/76 95 04/25/19 07:24 Laboratory Results 04/25/19 06:27 04/25/19 06:27
[2019-04-25] MEDS: OXYCODONE HCL IR 5 MG TAB (IMMEDIATE RELEASE) PO PRN (22:18)
[2019-04-26] MEDS ORDERED: EPOETIN ALFA 20,000 UNITS/ML VIAL IV ONE (07:00)
[2019-04-26] MEDS ORDERED: SODIUM CHLORIDE 0.9% 1000ML 1,000 ML IV PRN (07:00)
[2019-04-26 07:30] LABS: INR 1.6 (0.9-1.1); Prothrombin Time 16.2 Seconds (9.0-12.0)
[2019-04-26] MEDS: D5W AND NSS 1,000 ML IV SCH (07:58)
[2019-04-26] MEDS: METOPROLOL TARTRATE 50 MG TAB PO SCH ×2 (07:58→21:07)
[2019-04-26 08:04] LABS: BUN Creatinine Ratio 6.6 (10-20); Calcium 8.3 mg/dl (8.5-10.1); Est GFR (African American) 27.7; Est GFR (Non-African American) 23.9; Magnesium 1.8 mg/dl (1.8-2.4); Phosphorus 1.8 mg/dl (2.5-4.9); Potassium 3.5 mmol/L (3.5-5.1)
[2019-04-26] MEDS: levETIRAcetam 500 MG TAB PO SCH (08:16)
[2019-04-26] MEDS: predniSONE 10 MG TABLET PO SCH (08:16)
[2019-04-26] MEDS: levETIRAcetam 250 MG TAB PO PRN (15:56)
[2019-04-26] MEDS: CEFDINIR 300 MG CAP PO SCH (15:56)
[2019-04-26] MEDS: WARFARIN SOD 1 MG TAB PO SCH (15:57)
[2019-04-26] MEDS ORDERED: WARFARIN SOD 3 MG TAB PO SCH (16:00)
--- NOTE | 2019-04-26 16:44 | Hospitalist Progress Note ---
Date of Service April 26, 2019 Assessment & Plan (1) Sacral decubitus ulcer: Possible Sepsis on admission with elevated lactate and pro calcitonin level Immunocompromised patient, chronic steroid Use --CT ABD:Moderate subcutaneous edema within the right posterior abdominal wall and left flank. This could be due to prior soft tissue contusion. Mild subcutaneous edema/fat stranding at the level the sacrum. However, no definite soft tissue ulceration or underlying bony destruction to suggest osteomyelitis. Small bilateral pleural effusions persist. Mild congestive change on the background of chronic interstitial thickening. This has improved. Cholecystectomy. No definite bowel wall thickening or obstruction. Mild ileus. Mildly distended bladder. Blood cultures: No growth to date Wound Cx: Morganella Received IV daptomycin discontinued Continued IV Zosyn and changed to oral Cefdinir from today-to continue for a total of 4 week Continue wound care -appreciate input and recommendation Appreciate ID input and recommendation We will give oral antibiotic to continue for 4 weeks in total Remains stable Supratherapeutic INR INR: 9.4>7.1>> 2.2 Received Vitamin K Resumed Coumadin subsequently INR is subtherapeutic and will increase the dose of Coumadin Monitor INR Chronic diastolic heart failure Volume Overload on presentation ESRD Last EF: 60-65% Volume status managed with HD Patient is on MWF dialysis Appreciate Nephrology help Hyponatremia Hypochloremia Due to Volume overload No change in mental status Sodium 129 and chloride 93 as of 04/24/2019 Hyponatremia is not yet improved We will change D5-D5 NS and continue dialysis Monitor PRP-sodium level has been up at 131 Sick sinus syndrome S/P PPM On Metoprolol Resumed Coumadin today Monitor INR-1.61 04/26/2019 ESRD Anemia of Chronic disease S/P Insertion of Perm Catheter, Right Internal Jugular Approach-by Dr. Sifuentes on seventh of this month Appreciate Nephrology Input on Dialysis MWF Hypertension BP relatively low Hold amlodipine, hydralazine for now Adjust medications as needed Hyperlipidemia Hold statin while on daptomycin H/O Pituitary tumor S/P Surgery Seizure disorder Continue Keppra Hyperglycemia likely steroid-induced HbA1C:4.7 DVT Px: Coumadin CODE STATUS Full Code Disposition Needs Rehab Placement Family unable to take care of the patient Case Management consulted for discharge planning Has been living with her who has been helping her in and out of bed Refusing PT and OT therapy She was advised to participate in PT and OT to get better Awaiting placement Subjective 04/24/2019 The patient was seen and examined in medical floor She has been weak and lethargic but denies any other symptoms She has not been out of bed since admission Denies any fever and/or chills, any nausea and/or vomiting or any pain in pelvis 04/25/2019 Patient was seen and examined in medical floor She remains very weak and lethargic and does not want to participate in physical therapy She has not been eating or drinking enough and her sodium remains low Denies any other significant symptoms 04/26/2019 The patient was seen and examined in medical floor She remains stable but generally weak and lethargic and has not been participating in PT and OT Denies any acute symptoms Review of Systems Review of Systems: All systems reviewed and are unremarkable except as noted below Constitutional: + weakness and + anorexia Physical Exam Physical Exam: Lying in bed comfortably, status post dialysis Constitutional: well developed, well nourished, + ill appearing and + morbidly obese; not in distress Eyes: PERRL, conjunctivae normal, anicteric sclerae EOM intact bilaterally ENMT: Mallampati Class: II Neck: trachea midline, no thyromegaly normal visual inspection; no nuchal rigidity Respiratory: normal respiratory effort and + cough (w/ deep breaths for lung exam) Auscultation: lungs clear to auscultation bilaterally, + diminished lung sounds and + rhonchi Cardiovascular: RRR, no murmur, no edema Rate/Rhythm: regular rate, regular rhythm and + irregularly irregular Vessels: + abnormal peripheral pulses Extremities: + edema (3+ BLE) and + vascular access device (R chest permcath hanging from exit site, ~10 inches of catheter visible.) Gastrointestinal (Abdomen): Inspection/Auscultation: normal bowel sounds Percussion/Palpation: abdomen soft; abdomen nontender Musculoskeletal: Head/Neck/Chest: normocephalic and head atraumatic Skin: no rashes, warm and dry Neurologic: moves all extremities and awake; no focal motor deficits and not confused Psychiatric: A+Ox3, euthymic affect Orientation: alert, oriented x 3, oriented to person and oriented to place Affect: + flat affect Insight: good insight Judgement: good judgement Lymphatic: no cervical or axillary lymphadenopathy Results & Data Vital Signs (Past 12 Hours) Vital Signs Temp Pulse Pulse Pulse Resp BP BP 04/26/19 15:17 36.9 C 69 04/26/19 15:00 36.4 C L 85 20 04/26/19 12:40 69 125/64 04/26/19 12:20 70 128/78 04/26/19 12:00 70 117/84 04/26/19 11:51 70 04/26/19 11:40 70 138/82 04/26/19 11:20 70 125/78 04/26/19 11:00 70 137/68 04/26/19 10:40 69 130/78 04/26/19 10:20 70 128/75 04/26/19 10:00 70 127/74 04/26/19 09:40 70 119/70 04/26/19 09:20 70 131/70 04/26/19 08:57 36.3 C L 69 04/26/19 08:00 36.3 C L 70 20 126/79 BP Pulse Ox 04/26/19 15:17 139/73 04/26/19 15:00 126/76 90 04/26/19 12:40 04/26/19 12:20 04/26/19 12:00 04/26/19 11:51 04/26/19 11:40 04/26/19 11:20 04/26/19 11:00 04/26/19 10:40 04/26/19 10:20 04/26/19 10:00 04/26/19 09:40 04/26/19 09:20 04/26/19 08:57 04/26/19 08:00 94 Laboratory Results BMP 04/26/19 07:04 Sodium 131 L Potassium 3.5 Chloride 99 Carbon Dioxide 24 BUN 13 Creatinine 2.02 H Glucose 113 H Calcium 8.3 L Medications Administered Current Inpatient Medications Acetaminophen (Tylenol) 650 mg PO Q4H PRN PRN Reason: Pain or Fever Stop: 05/20/19 22:06 Amlodipine Besylate (Norvasc) 2.5 mg PO BID [facility] Stop: 05/21/19 20:59 Last Admin: 04/22/19 09:25 Dose: Not Given Documented by: Cefdinir (Omnicef Cap) 300 mg PO Q24H [facility]; Protocol Stop: 05/04/19 15:59 Last Admin: 01/10/20 15:56 Dose: 300 mg Documented by: Glucagon (Glucagen) 1 mg SQ UD PRN; Protocol PRN Reason: Hypoglycemia Protocol Stop: 05/23/19 08:36 Glucose (Dex4 Glucose) 4 - 8 tabs PO UD PRN; Protocol PRN Reason: Hypoglycemia Protocol Stop: 05/23/19 08:36 Last Admin: 04/24/19 17:03 Dose: 4 tabs Documented by: Glucose (Glucose 40%) 15 - 30 gm PO UD PRN; Protocol PRN Reason: Hypoglycemia Protocol Stop: 05/23/19 08:36 Last Admin: 04/24/19 17:11 Dose: 15 gm Documented by: Hydralazine HCl (Apresoline) 12.5 mg PO BID [facility] Stop: 05/21/19 08:59 Last Admin: 04/22/19 09:26 Dose: Not Given Documented by: Hydromorphone HCl (Dilaudid) 0.25 mg IV Q3H PRN PRN Reason: Pain Stop: 05/04/19 22:32 Last Admin: 04/22/19 14:49 Dose: 0.25 mg Documented by: Promethazine HCl 12.5 mg/ (Sodium Chloride) 50.5 mls @ 202 mls/hr IV Q6H PRN PRN Reason: Nausea And Vomiting Stop: 05/20/19 22:32 Dextrose/Sodium Chloride (D5w And Nss) 1,000 mls @ 60 mls/hr IV .[id number] [facility] Stop: 05/25/19 14:14 Last Infusion: 04/26/19 15:30 Dose: 60 mls/hr Documented by: Levetiracetam (Keppra) 500 mg PO DAILY [facility] Stop: 05/24/19 08:59 Last Admin: 04/26/19 08:16 Dose: 500 mg Documented by: Levetiracetam (Keppra) 250 mg PO DAILY@1600 PRN PRN Reason: AFTER EACH DIALYSIS Stop: 05/23/19 14:32 Last Admin: 04/26/19 15:56 Dose: 250 mg Documented by: Metoprolol Tartrate (Lopressor) 50 mg PO BID [facility] Stop: 05/21/19 08:59 Last Admin: 04/26/19 07:58 Dose: Not Given Documented by: Miconazole Nitrate (Desenex) 1 appln EXT PRN PRN PRN Reason: Affected Skin Folds Stop: 05/20/19 23:18 Miscellaneous (Order Awaiting Action) 1 ea N/A QS [facility] Stop: 05/21/19 07:59 Last Admin: 04/26/19 15:57 Dose: Not Given Documented by: Jayna (Carbohydrates For Hypoglycemia) 15 - 30 gm PO UD PRN PRN Reason: Hypoglycemia Protocol Stop: 05/23/19 08:36 Last Admin: 04/24/19 16:36 Dose: 15 gm Documented by: Jayna (Pending Order) 1 ea N/A DAILY@1600 [facility] Stop: 05/24/19 15:59 Last Admin: 04/26/19 15:57 Dose: 1 ea Documented by: Nitroglycerin (Nitrostat) 0.4 mg SL UD PRN PRN Reason: Chest Pain Stop: 05/20/19 22:06 Oxycodone HCl (Roxicodone Immediate Rel) 5 mg PO Q4H PRN PRN Reason: Pain Stop: 05/04/19 22:32 Last Admin: 04/25/19 22:18 Dose: 5 mg Documented by: Prednisone (Prednisone) 10 mg PO DAILY [facility] Stop: 05/21/19 08:59 Last Admin: 04/26/19 08:16 Dose: 10 mg Documented by: Trazodone HCl (Desyrel) 50 mg PO HS PRN PRN Reason: Sleep Stop: 05/20/19 22:06 Warfarin Sodium (Coumadin) 1 mg PO DAILY@1600 [facility] Stop: 05/23/19 15:59 Last Admin: 04/26/19 15:57 Dose: 1 mg Documented by: Warfarin Sodium (Coumadin) 3 mg PO TODAY@1600 [facility] Stop: 04/26/19 18:00 Last Admin: 04/26/19 15:56 Dose: 3 mg Documented by:
--- NOTE | 2019-04-26 18:39 | Dialysis Progress Note ---
Date of Service April 26, 2019 Assessment & Plan (1) ESRD (end stage renal disease) on dialysis: unfortunately no renal recovery since NADIA in February and now esrd; aiming for 2.5 L off today and got this again today; catheter was placed 04/23 after other fell out 04/22 -HD tomorrow shorter tx aim for another 2.5L UF -hyponatremia reflects progressive chronic volume overload for her -- improved w/ dialysis -daily bmp -cont 1.2L FR (2) Anemia of chronic disease: check hgb q24-48 hrs; has dropped some; t stn 24% on 04/23 -epo w/ HD (3) Sacral decubitus ulcer: per primary service and wound team (4) Thrombocytopenia: >50% drop this admission; running dialysis heparin free Subjective seen on hd this am; notes edema improving again; no sob, no n/v; pain currently controlled Review of Systems Review of Systems: All systems reviewed & are unremarkable except as noted in HPI & below Physical Exam Constitutional: well developed, well nourished and + frail appearing; no acute distress (on RA) Eyes: EOM intact bilaterally ENMT: Ears: no external ear abnormality Nose: no external nose abnormality Mouth: + dry oral mucous membranes Neck: no nuchal rigidity Respiratory: normal respiratory effort Auscultation: lungs clear to auscultation bilaterally and + diminished lung sounds Cardiovascular: Rate/Rhythm: regular rate and regular rhythm Extremities: + edema (1-2+ BLE) Gastrointestinal (Abdomen): Inspection/Auscultation: normal bowel sounds Percussion/Palpation: abdomen soft; abdomen nontender Musculoskeletal: Extremities: strength 5/5 throughout Skin: no rashes, warm and dry Psychiatric: Orientation: alert, oriented to person and oriented to place Affect: + flat affect Insight: good insight Judgement: good judgement Results & Data Vital Signs (Past 12 Hours) Vital Signs Temp Pulse Pulse Pulse Resp BP BP 04/26/19 15:17 36.9 C 69 04/26/19 15:00 36.4 C L 85 20 04/26/19 12:40 69 125/64 04/26/19 12:20 70 128/78 04/26/19 12:00 70 117/84 04/26/19 11:51 70 04/26/19 11:40 70 138/82 04/26/19 11:20 70 125/78 04/26/19 11:00 70 137/68 04/26/19 10:40 69 130/78 04/26/19 10:20 70 128/75 04/26/19 10:00 70 127/74 04/26/19 09:40 70 119/70 04/26/19 09:20 70 131/70 04/26/19 08:57 36.3 C L 69 04/26/19 08:00 36.3 C L 70 20 126/79 BP Pulse Ox 04/26/19 15:17 139/73 04/26/19 15:00 126/76 90 04/26/19 12:40 04/26/19 12:20 04/26/19 12:00 04/26/19 11:51 04/26/19 11:40 04/26/19 11:20 04/26/19 11:00 04/26/19 10:40 04/26/19 10:20 04/26/19 10:00 04/26/19 09:40 04/26/19 09:20 04/26/19 08:57 04/26/19 08:00 94 Laboratory Results 04/25/19 06:27 04/26/19 07:04
[2019-04-26] MEDS: OXYCODONE HCL IR 5 MG TAB (IMMEDIATE RELEASE) PO PRN (21:08)
[2019-04-27] MEDS: D5W AND NSS 1,000 ML IV SCH (00:20)
[2019-04-27] MEDS: OXYCODONE HCL IR 5 MG TAB (IMMEDIATE RELEASE) PO PRN ×5 (01:21→21:03)
[2019-04-27] MEDS ORDERED: EPOETIN ALFA 20,000 UNITS/ML VIAL IV ONE (07:00)
[2019-04-27] MEDS ORDERED: SODIUM CHLORIDE 0.9% 1000ML 1,000 ML IV PRN (07:00)
[2019-04-27 07:41] LABS: Mean Corpuscular Hgb Conc 31.2 g/dL (32-36); Nucleated RBC # (auto) 0.29 K/uL (0-0); Nucleated RBC % (auto) 1.8 %
[2019-04-27 07:53] LABS: Hematocrit (blood only) 28.5 % (37-47); Hemoglobin 8.9 g/dL (12.0-16.0); Mean Corpuscular Hemoglobin 27.1 pg (25-34); Mean Corpuscular Volume 86.9 fL (80-100); RDW Coefficient of Variation 18.5 % (11.5-14.5); RDW Standard Deviation 56.5 fL (36.4-46.3); Red Blood Count 3.28 M/uL (4.2-5.4); White Blood Count 16.13 K/uL (4.8-10.8)
[2019-04-27 08:03] LABS: Prothrombin Time 19.7 Seconds (9.0-12.0)
[2019-04-27] MEDS: predniSONE 10 MG TABLET PO SCH (08:07)
[2019-04-27] MEDS: levETIRAcetam 500 MG TAB PO SCH (08:08)
[2019-04-27] MEDS: METOPROLOL TARTRATE 50 MG TAB PO SCH ×2 (08:08→21:04)
[2019-04-27 08:10] LABS: Platelet Count 69 K/uL (130-400)
[2019-04-27 08:11] LABS: ALC (manual) 2.53 K/uL (1.2-3.4); ANC (manual) 13.03 K/uL (1.4-6.5); Anisocytosis Present; Lymphocytes # (manual) 2.53 K/uL (1.2-3.4); Lymphocytes % (manual) 15.7 %; Monocytes # (manual) 0.56 K/uL (0.11-0.59); Monocytes % (manual) 3.5 %; Neutrophils # (manual) 13.03 K/uL (1.4-6.5); Neutrophils % (manual) 80.8 %; Platelet Estimate Decreased (Normal); Poikilocytosis Present
[2019-04-27 08:17] LABS: BUN Creatinine Ratio 5.5 (10-20); Calcium 8.3 mg/dl (8.5-10.1); Creatinine Clr Calc Pharmacy 29.6 ml/min; Est GFR (African American) 33.1; Est GFR (Non-African American) 28.6; Magnesium 1.7 mg/dl (1.8-2.4)
[2019-04-27] MEDS: MEGESTROL ACETATE SUSP 400 MG/10 ML UDC PO SCH (12:18)
--- NOTE | 2019-04-27 12:46 | Hospitalist Progress Note ---
Date of Service April 27, 2019 Assessment & Plan (1) Sacral decubitus ulcer: Possible Sepsis on admission with elevated lactate and pro calcitonin level Immunocompromised patient, chronic steroid Use --CT ABD:Moderate subcutaneous edema within the right posterior abdominal wall and left flank. This could be due to prior soft tissue contusion. Mild subcutaneous edema/fat stranding at the level the sacrum. However, no definite soft tissue ulceration or underlying bony destruction to suggest osteomyelitis. Small bilateral pleural effusions persist. Mild congestive change on the background of chronic interstitial thickening. This has improved. Cholecystectomy. No definite bowel wall thickening or obstruction. Mild ileus. Mildly distended bladder. Blood cultures: No growth to date Wound Cx: Morganella Received IV daptomycin discontinued Continued IV Zosyn and changed to oral Cefdinir from today-to continue for a total of 4 week Continue wound care -appreciate input and recommendation Appreciate ID input and recommendation We will give oral antibiotic to continue for 4 weeks in total Will need appropriate wound care as per the wound care nurse Anorexia [id number] renal disease, antibiotic and current illness Will try Megace Boost ordered Supratherapeutic INR INR: 9.4>7.1>> 2.2 Received Vitamin K Resumed Coumadin subsequently INR is subtherapeutic and will increase the dose of Coumadin Monitor INR-has been therapeutic at 2.0 as of 04/27/2019 Chronic diastolic heart failure Volume Overload on presentation ESRD Last EF: 60-65% Volume status managed with HD Patient is on MWF dialysis Appreciate Nephrology help Hyponatremia Hypochloremia Due to Volume overload No change in mental status Sodium 129 and chloride 93 as of 04/24/2019 Hyponatremia is not yet improved We will change D5-D5 NS and continue dialysis Monitor PRP-sodium level has been up at 132 Sick sinus syndrome S/P PPM On Metoprolol Resumed Coumadin today Monitor INR-1.61 04/26/2019 ESRD Anemia of Chronic disease S/P Insertion of Perm Catheter, Right Internal Jugular Approach-by Dr. Sifuentes on seventh of this month Appreciate Nephrology Input on Dialysis MWF Hypertension BP relatively low Hold amlodipine, hydralazine for now Adjust medications as needed Hyperlipidemia Hold statin while on daptomycin H/O Pituitary tumor S/P Surgery Seizure disorder Continue Keppra Hyperglycemia likely steroid-induced HbA1C:4.7 DVT Px: Coumadin CODE STATUS Full Code Disposition Needs Rehab Placement Family unable to take care of the patient Case Management consulted for discharge planning Has been living with her who has been helping her in and out of bed Refusing PT and OT therapy She was advised to participate in PT and OT to get better Awaiting placement Subjective 04/24/2019 The patient was seen and examined in medical floor She has been weak and lethargic but denies any other symptoms She has not been out of bed since admission Denies any fever and/or chills, any nausea and/or vomiting or any pain in pelvis 04/25/2019 Patient was seen and examined in medical floor She remains very weak and lethargic and does not want to participate in physical therapy She has not been eating or drinking enough and her sodium remains low Denies any other significant symptoms 04/26/2019 The patient was seen and examined in medical floor She remains stable but generally weak and lethargic and has not been participating in PT and OT Denies any acute symptoms 04/27/2019 Patient was seen and examined in presence of the She complains to have ongoing anorexia and she has not been eating or drinking enough Her has been trying to help her oral intake but has not been able to do so for the last 3 months Remains generally weak and lethargic She is not able to participate in physical therapy Review of Systems Review of Systems: All systems reviewed and are unremarkable except as noted below Constitutional: + weakness and + anorexia Physical Exam Physical Exam: Lying in bed comfortably Constitutional: well developed, well nourished, + ill appearing and + morbidly obese; not in distress Eyes: PERRL, conjunctivae normal, anicteric sclerae EOM intact bilaterally ENMT: Mallampati Class: II Neck: trachea midline, no thyromegaly normal visual inspection; no nuchal rigidity Respiratory: normal respiratory effort and + cough (w/ deep breaths for lung exam) Auscultation: lungs clear to auscultation bilaterally, + diminished lung sounds and + rhonchi Cardiovascular: Rate/Rhythm: regular rate, regular rhythm and + irregularly irregular Vessels: + abnormal peripheral pulses Extremities: + edema (3+ BLE) and + vascular access device (R chest permcath hanging from exit site, ~10 inches of catheter visible.) Gastrointestinal (Abdomen): Inspection/Auscultation: normal bowel sounds Percussion/Palpation: abdomen soft; abdomen nontender Musculoskeletal: Head/Neck/Chest: normocephalic and head atraumatic Generally weak Skin: no rashes, warm and dry Neurologic: moves all extremities and awake; no focal motor deficits and not confused Psychiatric: A+Ox3, euthymic affect Orientation: alert, oriented x 3, oriented to person and oriented to place Affect: + flat affect Insight: good insight Judgement: good judgement Lymphatic: no cervical or axillary lymphadenopathy Results & Data Vital Signs (Past 12 Hours) Vital Signs Temp Pulse Pulse Pulse Resp BP BP 04/27/19 11:42 36.6 C 79 16 131/73 04/27/19 07:35 70 04/27/19 07:28 36.9 C 103 H 16 114/67 04/27/19 03:47 36.6 C 68 17 133/82 Pulse Ox 04/27/19 11:42 96 04/27/19 07:35 04/27/19 07:28 96 04/27/19 03:47 93 Laboratory Results Short CBC 04/27/19 Range/Units 07:34 WBC 16.13 H (4.8-10.8) K/uL Hgb 8.9 L (12.0-16.0) g/dL Hct 28.5 L (37-47) % Plt Count 69 L (130-400) K/uL BMP 04/27/19 07:34 Sodium 132 L Potassium 4.0 Chloride 101 Carbon Dioxide 25 BUN 10 Creatinine 1.74 H Glucose 99 Calcium 8.3 L Medications Administered Current Inpatient Medications Acetaminophen (Tylenol) 650 mg PO Q4H PRN PRN Reason: Pain or Fever Stop: 05/20/19 22:06 Amlodipine Besylate (Norvasc) 2.5 mg PO BID [facility] Stop: 05/21/19 20:59 Last Admin: 04/22/19 09:25 Dose: Not Given Documented by: Cefdinir (Omnicef Cap) 300 mg PO Q24H [facility]; Protocol Stop: 05/04/19 15:59 Last Admin: 04/26/19 15:56 Dose: 300 mg Documented by: Glucagon (Glucagen) 1 mg SQ UD PRN; Protocol PRN Reason: Hypoglycemia Protocol Stop: 05/23/19 08:36 Glucose (Dex4 Glucose) 4 - 8 tabs PO UD PRN; Protocol PRN Reason: Hypoglycemia Protocol Stop: 05/23/19 08:36 Last Admin: 04/24/19 17:03 Dose: 4 tabs Documented by: Glucose (Glucose 40%) 15 - 30 gm PO UD PRN; Protocol PRN Reason: Hypoglycemia Protocol Stop: 05/23/19 08:36 Last Admin: 04/24/19 17:11 Dose: 15 gm Documented by: Hydralazine HCl (Apresoline) 12.5 mg PO BID [facility] Stop: 05/21/19 08:59 Last Admin: 04/22/19 09:26 Dose: Not Given Documented by: Hydromorphone HCl (Dilaudid) 0.25 mg IV Q3H PRN PRN Reason: Pain Stop: 05/04/19 22:32 Last Admin: 04/22/19 14:49 Dose: 0.25 mg Documented by: Promethazine HCl 12.5 mg/ (Sodium Chloride) 50.5 mls @ 202 mls/hr IV Q6H PRN PRN Reason: Nausea And Vomiting Stop: 05/20/19 22:32 Sodium Chloride (Nss 1000ml) 1,000 mls @ 0 mls/hr IV .Q0M PRN PRN Reason: For Hemodialysis Use ONLY Stop: 04/27/19 12:59 Levetiracetam (Keppra) 500 mg PO DAILY [facility] Stop: 05/24/19 08:59 Last Admin: 04/27/19 08:08 Dose: 500 mg Documented by: Levetiracetam (Keppra) 250 mg PO DAILY@1600 PRN PRN Reason: AFTER EACH DIALYSIS Stop: 05/23/19 14:32 Last Admin: 04/26/19 15:56 Dose: 250 mg Documented by: Megestrol Acetate (Megace) 400 mg PO QAM [facility] Stop: 05/27/19 11:29 Last Admin: 04/27/19 12:18 Dose: 400 mg Documented by: Metoprolol Tartrate (Lopressor) 50 mg PO BID [facility] Stop: 05/21/19 08:59 Last Admin: 04/27/19 08:08 Dose: Not Given Documented by: Miconazole Nitrate (Desenex) 1 appln EXT PRN PRN PRN Reason: Affected Skin Folds Stop: 05/20/19 23:18 Miscellaneous (Order Awaiting Action) 1 ea N/A QS [facility] Stop: 05/21/19 07:59 Last Admin: 04/27/19 08:07 Dose: Not Given Documented by: Miscellaneous (Carbohydrates For Hypoglycemia) 15 - 30 gm PO UD PRN PRN Reason: Hypoglycemia Protocol Stop: 05/23/19 08:36 Last Admin: 04/24/19 16:36 Dose: 15 gm Documented by: Miscellaneous (Pending Order) 1 ea N/A DAILY@1600 [facility] Stop: 05/24/19 15:59 Last Admin: 04/26/19 15:57 Dose: 1 ea Documented by: Nitroglycerin (Nitrostat) 0.4 mg SL UD PRN PRN Reason: Chest Pain Stop: 05/20/19 22:06 Oxycodone HCl (Roxicodone Immediate Rel) 5 mg PO Q4H PRN PRN Reason: Pain Stop: 05/04/19 22:32 Last Admin: 04/27/19 12:17 Dose: 5 mg Documented by: Prednisone (Prednisone) 10 mg PO DAILY [facility] Stop: 05/21/19 08:59 Last Admin: 04/27/19 08:07 Dose: 10 mg Documented by: Trazodone HCl (Desyrel) 50 mg PO HS PRN PRN Reason: Sleep Stop: 05/20/19 22:06 Warfarin Sodium (Coumadin) 1 mg PO DAILY@1600 [facility] Stop: 05/23/19 15:59 Last Admin: 04/26/19 15:57 Dose: 1 mg Documented by:
--- NOTE | 2019-04-27 14:52 | Nephrology Progress Note ---
Date of Service April 27, 2019 Assessment & Plan (1) ESRD (end stage renal disease) on dialysis: unfortunately no renal recovery since NADIA in February and now esrd; aiming for 2.5 L off today and got this again today; catheter was placed 04/23 after other fell out 04/22 -HD today, isolated UF for hrs and UF 3 litres. -hyponatremia reflects progressive chronic volume overload for her -- improved w/ dialysis -daily bmp -cont 1.2L FR (2) Anemia of chronic disease: check hgb q24-48 hrs; has dropped some; t stn 24% on 04/23 -epo w/ HD (3) Sacral decubitus ulcer: per primary service and wound team (4) Thrombocytopenia: >50% drop this admission; running dialysis heparin free Subjective Patient feels better. c/o weakness. No SOB. She is planned for HD today Review of Systems Review of Systems: All systems reviewed & are unremarkable except as noted in HPI & below Physical Exam Physical Exam: General exam: Appears comfortable, no acute distress HEENT: Pupils are equal and reactive to light Neck: No JVD, neck is supple trachea is midline Respiratory system: Clear breath sounds bilaterally. Gastrointestinal: Abdomen is soft, non distended, non tender, bowel sounds are present CVS: Regular rate and rhythm. No murmurs, rubs or gallops Musculoskeletal: No joint or muscle tenderness Extremities: Non tender, 1+ edema, peripheral pulses are present Neuro: Oriented, no tremors, no focal neurological deficits Skin: No rashes Results & Data Vital Signs (Past 12 Hours) Vital Signs Temp Pulse Pulse Pulse Resp BP BP 04/27/19 11:42 36.6 C 79 16 131/73 04/27/19 07:35 70 04/27/19 07:28 36.9 C 103 H 16 114/67 04/27/19 03:47 36.6 C 68 17 133/82 Pulse Ox 04/27/19 11:42 96 04/27/19 07:35 04/27/19 07:28 96 04/27/19 03:47 93 Laboratory Results Laboratory Results - last 24 hr 04/27/19 04/27/19 04/27/19 07:34 07:34 07:34 WBC 16.13 H RBC 3.28 L Hgb 8.9 L Hct 28.5 L MCV 86.9 MCH 27.1 MCHC 31.2 L RDW Std Deviation 56.5 H RDW Coeff of Allan 18.5 H Plt Count 69 L Absolute Nucleated RBC 0.29 H Nucleated RBC % (auto) 1.8 Neutrophils % (Manual) 80.8 Lymphocytes % (Manual) 15.7 Monocytes % (Manual) 3.5 Neutrophils # (Manual) 13.03 H Total Absolute Neuts 13.03 H Lymphocytes # (Manual) 2.53 Total Abs Lymphocytes 2.53 Monocytes # (Manual) 0.56 Platelet Estimate Decreased L Poikilocytosis Present Anisocytosis Present PT 19.7 H INR 2.0 H Sodium 132 L Potassium 4.0 Chloride 101 Carbon Dioxide 25 Anion Gap 6.0 BUN 10 Creatinine 1.74 H Est Cr Clr Drug Dosing 29.6 Est GFR ( Amer) 33.1 Est GFR (Non-Af Amer) 28.6 BUN/Creatinine Ratio 5.5 L Glucose 99 Calcium 8.3 L Magnesium 1.7 L Specimen Hemolysis
[2019-04-27] MEDS: WARFARIN SOD 1 MG TAB PO SCH (19:00)
[2019-04-27] MEDS: CEFDINIR 300 MG CAP PO SCH (19:00)
[2019-04-27] MEDS: levETIRAcetam 250 MG TAB PO PRN (19:00)
[2019-04-28] MEDS: OXYCODONE HCL IR 5 MG TAB (IMMEDIATE RELEASE) PO PRN ×4 (02:05→19:59)
[2019-04-28] MEDS ORDERED: bisacodyL 10 MG SUPP PR STA (04:49)
[2019-04-28 06:42] LABS: INR 3.2 (0.9-1.1); Prothrombin Time 30.2 Seconds (9.0-12.0)
[2019-04-28 07:14] LABS: BUN Creatinine Ratio 6.5 (10-20); Calcium 8.4 mg/dl (8.5-10.1); Creatinine Clr Calc Pharmacy 19.1 ml/min; Est GFR (African American) 19.9; Est GFR (Non-African American) 17.2; Potassium 4.6 mmol/L (3.5-5.1)
[2019-04-28] MEDS: MEGESTROL ACETATE SUSP 400 MG/10 ML UDC PO SCH (08:19)
[2019-04-28] MEDS: predniSONE 10 MG TABLET PO SCH (08:19)
[2019-04-28] MEDS: METOPROLOL TARTRATE 50 MG TAB PO SCH ×2 (08:39→19:59)
[2019-04-28] MEDS: levETIRAcetam 500 MG TAB PO SCH (08:39)
--- NOTE | 2019-04-28 13:39 | Hospitalist Progress Note ---
Date of Service April 28, 2019 Assessment & Plan (1) Sacral decubitus ulcer: Possible Sepsis on admission with elevated lactate and pro calcitonin level Immunocompromised patient, chronic steroid Use --CT ABD:Moderate subcutaneous edema within the right posterior abdominal wall and left flank. This could be due to prior soft tissue contusion. Mild subcutaneous edema/fat stranding at the level the sacrum. However, no definite soft tissue ulceration or underlying bony destruction to suggest osteomyelitis. Small bilateral pleural effusions persist. Mild congestive change on the background of chronic interstitial thickening. This has improved. Cholecystectomy. No definite bowel wall thickening or obstruction. Mild ileus. Mildly distended bladder. Blood cultures: No growth to date Wound Cx: Morganella Received IV daptomycin discontinued Continued IV Zosyn and changed to oral Cefdinir from today-to continue for a total of 4 week Continue wound care -appreciate input and recommendation Appreciate ID input and recommendation We will give oral antibiotic to continue for 4 weeks in total Will need appropriate wound care as per the wound care nurse She was provided with a new mattress and was advised to have frequent postural change to avoid continued pressure on sacrum Anorexia Incjeygnyfzvec-[id number] renal disease, antibiotic and current illness Will try Megace Boost ordered Anuric she has seems to be better and she has been taking boost regularly and trying to eat more Supratherapeutic INR INR: 9.4>7.1>> 2.2 Received Vitamin K Resumed Coumadin subsequently INR is subtherapeutic and will increase the dose of Coumadin Monitor INR-has been therapeutic at 2.0 as of 04/27/2019 INR is 3.2 today and will decrease her Coumadin dose from today Chronic diastolic heart failure Volume Overload on presentation ESRD Last EF: 60-65% Volume status managed with HD Patient is on MWF dialysis Appreciate Nephrology help Hyponatremia Hypochloremia Due to Volume overload No change in mental status Sodium 129 and chloride 93 as of 04/24/2019 Hyponatremia is not yet improved We will change D5-D5 NS and continue dialysis Monitor PRP-sodium level has been up at 132 and 130 as of 04/28/2019 Sick sinus syndrome S/P PPM On Metoprolol Resumed Coumadin today Monitor INR-1.61 04/26/2019 ESRD Anemia of Chronic disease S/P Insertion of Perm Catheter, Right Internal Jugular Approach-by Dr. Sifuentes on seventh of this month Appreciate Nephrology Input on Dialysis MWF Hypertension BP relatively low Hold amlodipine, hydralazine for now Adjust medications as needed Hyperlipidemia Hold statin while on daptomycin H/O Pituitary tumor S/P Surgery Seizure disorder Continue Keppra Hyperglycemia likely steroid-induced HbA1C:4.7 DVT Px: Coumadin CODE STATUS Full Code Disposition Needs Rehab Placement Family unable to take care of the patient Case Management consulted for discharge planning Has been living with her who has been helping her in and out of bed Refusing PT and OT therapy She was advised to participate in PT and OT to get better Awaiting placement-likely discharge tomorrow on acceptance to SNF Subjective 04/24/2019 The patient was seen and examined in medical floor She has been weak and lethargic but denies any other symptoms She has not been out of bed since admission Denies any fever and/or chills, any nausea and/or vomiting or any pain in pelvis 04/25/2019 Patient was seen and examined in medical floor She remains very weak and lethargic and does not want to participate in physical therapy She has not been eating or drinking enough and her sodium remains low Denies any other significant symptoms 04/26/2019 The patient was seen and examined in medical floor She remains stable but generally weak and lethargic and has not been participating in PT and OT Denies any acute symptoms 04/27/2019 Patient was seen and examined in presence of the She complains to have ongoing anorexia and she has not been eating or drinking enough Her has been trying to help her oral intake but has not been able to do so for the last 3 months Remains generally weak and lethargic She is not able to participate in physical therapy 04/28/2019 Patient was seen and examined in the medical floor Her sacral wounds have been getting worse Continue current dressing as per wound care and reevaluation by wound care nurse tomorrow Review of Systems Review of Systems: All systems reviewed and are unremarkable except as noted below Constitutional: + weakness and + anorexia Physical Exam Physical Exam: Lying in bed comfortably Constitutional: well developed, well nourished, + ill appearing and + morbidly obese; not in distress Eyes: PERRL, conjunctivae normal, anicteric sclerae EOM intact bilaterally ENMT: Mallampati Class: II Neck: trachea midline, no thyromegaly normal visual inspection; no nuchal rigidity Respiratory: normal respiratory effort and + cough (w/ deep breaths for lung exam) Auscultation: lungs clear to auscultation bilaterally, + diminished lung sounds and + rhonchi Cardiovascular: RRR, no murmur, no edema Rate/Rhythm: regular rate, regular rhythm and + irregularly irregular Vessels: + abnormal peripheral pulses Extremities: + edema (3+ BLE) and + vascular access device (R chest permcath hanging from exit site, ~10 inches of catheter visible.) Gastrointestinal (Abdomen): Inspection/Auscultation: normal bowel sounds Percussion/Palpation: abdomen soft; abdomen nontender Musculoskeletal: no cyanosis or clubbing, extremities motor strength 5/5 Head/Neck/Chest: normocephalic and head atraumatic Extremities: strength 5/5 throughout Skin: Sacral wounds are getting worse Neurologic: moves all extremities and awake; no focal motor deficits and not confused Psychiatric: A+Ox3, euthymic affect Orientation: alert, oriented x 3, oriented to person and oriented to place Affect: + flat affect Insight: good insight Judgement: good judgement Lymphatic: no cervical or axillary lymphadenopathy Results & Data Vital Signs (Past 12 Hours) Vital Signs Temp Pulse Pulse Resp BP Pulse Ox 04/28/19 11:42 36.5 C 79 16 147/76 H 95 04/28/19 08:29 37.4 C 69 18 131/71 94 04/28/19 07:03 71 04/28/19 04:12 37 C 70 20 144/72 H 94 Laboratory Results [facility] 04/28/19 05:46 Sodium 130 L Potassium 4.6 Chloride 98 Carbon Dioxide 22 BUN 17 D Creatinine 2.65 H D Glucose 73 Calcium 8.4 L Medications Administered Current Inpatient Medications Acetaminophen (Tylenol) 650 mg PO Q4H PRN PRN Reason: Pain or Fever Stop: 05/20/19 22:06 Amlodipine Besylate (Norvasc) 2.5 mg PO BID [facility] Stop: 05/21/19 20:59 Last Admin: 04/22/19 09:25 Dose: Not Given Documented by: Cefdinir (Omnicef Cap) 300 mg PO Q24H [facility]; Protocol Stop: 05/04/19 15:59 Last Admin: 04/27/19 19:00 Dose: 300 mg Documented by: Glucagon (Glucagen) 1 mg SQ UD PRN; Protocol PRN Reason: Hypoglycemia Protocol Stop: 05/23/19 08:36 Glucose (Dex4 Glucose) 4 - 8 tabs PO UD PRN; Protocol PRN Reason: Hypoglycemia Protocol Stop: 05/23/19 08:36 Last Admin: 04/24/19 17:03 Dose: 4 tabs Documented by: Glucose (Glucose 40%) 15 - 30 gm PO UD PRN; Protocol PRN Reason: Hypoglycemia Protocol Stop: 05/23/19 08:36 Last Admin: 04/24/19 17:11 Dose: 15 gm Documented by: Hydralazine HCl (Apresoline) 12.5 mg PO BID [facility] Stop: 05/21/19 08:59 Last Admin: 04/22/19 09:26 Dose: Not Given Documented by: Hydromorphone HCl (Dilaudid) 0.25 mg IV Q3H PRN PRN Reason: Pain Stop: 05/04/19 22:32 Last Admin: 04/22/19 14:49 Dose: 0.25 mg Documented by: Promethazine HCl 12.5 mg/ (Sodium Chloride) 50.5 mls @ 202 mls/hr IV Q6H PRN PRN Reason: Nausea And Vomiting Stop: 05/20/19 22:32 Levetiracetam (Keppra) 500 mg PO DAILY [facility] Stop: 05/24/19 08:59 Last Admin: 04/28/19 08:39 Dose: 500 mg Documented by: Levetiracetam (Keppra) 250 mg PO DAILY@1600 PRN PRN Reason: AFTER EACH DIALYSIS Stop: 05/23/19 14:32 Last Admin: 04/27/19 19:00 Dose: 250 mg Documented by: Megestrol Acetate (Megace) 400 mg PO QAM [facility] Stop: 05/27/19 11:29 Last Admin: 04/28/19 08:19 Dose: 400 mg Documented by: Metoprolol Tartrate (Lopressor) 50 mg PO BID [facility] Stop: 05/21/19 08:59 Last Admin: 04/28/19 08:39 Dose: 50 mg Documented by: Miconazole Nitrate (Desenex) 1 appln EXT PRN PRN PRN Reason: Affected Skin Folds Stop: 05/20/19 23:18 Miscellaneous (Order Awaiting Action) 1 ea N/A QS [facility] Stop: 05/21/19 07:59 Last Admin: 04/28/19 07:50 Dose: Not Given Documented by: Miscellaneous (Carbohydrates For Hypoglycemia) 15 - 30 gm PO UD PRN PRN Reason: Hypoglycemia Protocol Stop: 05/23/19 08:36 Last Admin: 04/24/19 16:36 Dose: 15 gm Documented by: Cintiaaneous (Pending Order) 1 ea N/A DAILY@1600 [facility] Stop: 05/24/19 15:59 Last Admin: 04/27/19 18:59 Dose: 1 ea Documented by: Nitroglycerin (Nitrostat) 0.4 mg SL UD PRN PRN Reason: Chest Pain Stop: 05/20/19 22:06 Oxycodone HCl (Roxicodone Immediate Rel) 5 mg PO Q4H PRN PRN Reason: Pain Stop: 05/04/19 22:32 Last Admin: 04/28/19 12:09 Dose: 5 mg Documented by: Prednisone (Prednisone) 10 mg PO DAILY [facility] Stop: 05/21/19 08:59 Last Admin: 04/28/19 08:19 Dose: 10 mg Documented by: Trazodone HCl (Desyrel) 50 mg PO HS PRN PRN Reason: Sleep Stop: 05/20/19 22:06 Warfarin Sodium (Coumadin) 1 mg PO DAILY@1600 [facility] Stop: 05/23/19 15:59 Last Admin: 04/27/19 19:00 Dose: 1 mg Documented by:
[2019-04-28] MEDS: CEFDINIR 300 MG CAP PO SCH (15:44)
[2019-04-28] MEDS: WARFARIN SOD 1 MG TAB PO SCH (15:44)
--- NOTE | 2019-04-28 17:22 | Nephrology Progress Note ---
Date of Service April 28, 2019 Assessment & Plan (1) ESRD (end stage renal disease) on dialysis: unfortunately no renal recovery since NADIA in February and now esrd; aiming for 2.5 L off today and got this again today; catheter was placed 04/23 after other fell out 04/22 -Had HD yesterday, Will do isolated UF for 2.5hrs and UF 3 litres. -hyponatremia reflects progressive chronic volume overload for her -- improved w/ dialysis -daily bmp -cont 1.2L FR (2) Anemia of chronic disease: check hgb q24-48 hrs; has dropped some; t stn 24% on 04/23 -epo w/ HD (3) Sacral decubitus ulcer: per primary service and wound team (4) Thrombocytopenia: >50% drop this admission; running dialysis heparin free Subjective Feels better but extremely weak unable to sit up unassisted. No SOB. Had HD yesterday Review of Systems Review of Systems: All systems reviewed & are unremarkable except as noted in HPI & below Physical Exam Physical Exam: General exam: Appears comfortable, no acute distress HEENT: Pupils are equal and reactive to light Neck: No JVD, neck is supple trachea is midline Respiratory system: crackles bilaterally. Gastrointestinal: Abdomen is soft, non distended, non tender, bowel sounds are present CVS: Regular rate and rhythm. No murmurs, rubs or gallops Musculoskeletal: No joint or muscle tenderness Extremities: Non tender, 2+ edema, peripheral pulses are present Neuro: Oriented, no tremors, no focal neurological deficits Skin: No rashes Results & Data Vital Signs (Past 12 Hours) Vital Signs Temp Pulse Pulse Pulse Resp BP Pulse Ox 04/28/19 15:04 36.6 C 70 18 144/74 H 96 04/28/19 14:50 71 04/28/19 11:42 36.5 C 79 16 147/76 H 95 04/28/19 08:29 37.4 C 69 18 131/71 94 04/28/19 07:03 71 Laboratory Results Laboratory Results - last 24 hr 04/28/19 04/28/19 05:46 05:46 PT 30.2 H INR 3.2 H Sodium 130 L Potassium 4.6 Chloride 98 Carbon Dioxide 22 Anion Gap 10.0 BUN 17 D Creatinine 2.65 H D Est Cr Clr Drug Dosing 19.1 Est GFR ( Amer) 19.9 Est GFR (Non-Af Amer) 17.2 BUN/Creatinine Ratio 6.5 L Glucose 73 Calcium 8.4 L
[2019-04-28] MEDS: PROMETHAZINE HCL 12.5 MG in SODIUM CHLORIDE 0.9% 50 ML IV PRN (20:35)
[2019-04-29] MEDS: OXYCODONE HCL IR 5 MG TAB (IMMEDIATE RELEASE) PO PRN ×2 (04:24→14:30)
[2019-04-29 06:48] LABS: Mean Corpuscular Hgb Conc 30.9 g/dL (32-36); Nucleated RBC # (auto) 0.31 K/uL (0-0); Nucleated RBC % (auto) 1.6 %
[2019-04-29 06:57] LABS: INR 2.7 (0.9-1.1); Prothrombin Time 26.1 Seconds (9.0-12.0)
[2019-04-29 07:00] LABS: Hematocrit (blood only) 29.1 % (37-47); Mean Corpuscular Hemoglobin 26.9 pg (25-34); Mean Corpuscular Volume 87.1 fL (80-100); RDW Coefficient of Variation 19.9 % (11.5-14.5); RDW Standard Deviation 59.8 fL (36.4-46.3); Red Blood Count 3.34 M/uL (4.2-5.4); White Blood Count 19.69 K/uL (4.8-10.8)
[2019-04-29] MEDS ORDERED: SODIUM CHLORIDE 0.9% 1000ML 1,000 ML IV PRN (07:00)
[2019-04-29 07:22] LABS: Platelet Count 77 K/uL (130-400)
[2019-04-29 07:25] LABS: BUN Creatinine Ratio 7.3 (10-20); Calcium 8.7 mg/dl (8.5-10.1); Est GFR (African American) 13.5; Est GFR (Non-African American) 11.7; Potassium 4.5 mmol/L (3.5-5.1)
[2019-04-29 07:29] LABS: Basophils # (auto) 0.02 K/uL (0-0.2); Basophils % (auto) 0.1 %; Eosinophils # (auto) 0.01 K/uL (0-0.5); Eosinophils % (auto) 0.1 %; Immature Granulocytes # (auto) 0.12 K/uL (0.00-0.02); Immature Granulocytes % (auto) 0.6 %; Lymphocytes # (auto) 1.87 K/uL (1.2-3.4); Lymphocytes % (auto) 9.5 %; Monocytes # (auto) 1.57 K/uL (0.11-0.59); Neutrophils % (auto) 81.7 %; Platelet Estimate Decreased (Normal); Polychromasia 1+
[2019-04-29] MEDS: METOPROLOL TARTRATE 50 MG TAB PO SCH ×2 (08:10→19:43)
[2019-04-29] MEDS: levETIRAcetam 500 MG TAB PO SCH ×2 (08:10→16:47)
[2019-04-29] MEDS: MEGESTROL ACETATE SUSP 400 MG/10 ML UDC PO SCH (08:10)
[2019-04-29] MEDS: predniSONE 10 MG TABLET PO SCH (08:11)
[2019-04-29] MEDS: HYDROmorphone INJ 0.5 MG/0.5 ML SYR IV PRN ×2 (09:07→17:56)
[2019-04-29] MEDS: PROMETHAZINE HCL 12.5 MG in SODIUM CHLORIDE 0.9% 50 ML IV PRN (14:27)
--- NOTE | 2019-04-29 15:24 | XRay Report ---
SINGLE VIEW CHEST CLINICAL HISTORY: Pneumonia. FINDINGS: An AP, portable, upright chest radiograph is compared to study dated 04/20/2019. The examinat ion is degraded by portable technique and patient rotation. A 2-lead cardiac pacemaker is unchanged i n position, as is a right internal jugular central venous catheter. The heart is enlarged noting athe rosclerotic calcification of the thoracic aorta. There is pulmonary vascular congestion. There are sm all pleural effusions with bibasilar consolidation. No pneumothorax is seen. The skeletal structures are osteopenic. The bony thorax is grossly intact. A right shoulder arthroplasty is in place. IMPRESSION: 1. Cardiomegaly with evidence of congestive failure. 2. Small pleural effusions with bibasilar consolidation. ACT 112: Negative or not required by law. Electronically signed by: Richard Wynn M.D. 04/29/2019 3:23 PM
[2019-04-29] MEDS: WARFARIN SOD 1 MG TAB PO SCH (16:44)
[2019-04-29] MEDS: CEFDINIR 300 MG CAP PO SCH (16:45)
--- NOTE | 2019-04-29 17:34 | Dialysis Progress Note ---
Date of Service April 29, 2019 Assessment & Plan (1) ESRD (end stage renal disease) on dialysis: unfortunately no renal recovery since NADIA in February and now esrd; aiming for 2.5 L off today and got this again today; catheter was placed 04/23 after other fell out 04/22 -for HD today 3.5 hr w/ 2.5 L UF > ended a bit early -next HD on 05/01 -hyponatremia reflects progressive chronic volume overload for her -- will improve w/ dialysis -daily bmp -cont 1.2L FR (2) Anemia of chronic disease: check hgb q24 hrs; has dropped some; t stn 24% on 04/23 -epo w/ HD (3) Sacral decubitus ulcer: per primary service and wound team (4) Thrombocytopenia: >50% drop this admission; running dialysis heparin free -plts have not rebounded -likeliest bone marrow suppression from abtx -cont daily cbc Subjective seen on HD at 1030 this am. no c/o; tolerating tx. came off 30 min early today d/t N - got 2.4L UF Review of Systems Review of Systems: All systems reviewed & are unremarkable except as noted in HPI & below Physical Exam Constitutional: well developed and well nourished; no acute distress (on RA) Eyes: EOM intact bilaterally ENMT: Ears: no external ear abnormality Nose: no external nose abnormality Mouth: + dry oral mucous membranes Neck: no nuchal rigidity Respiratory: normal respiratory effort Auscultation: lungs clear to auscultation bilaterally and + diminished lung sounds Cardiovascular: Rate/Rhythm: regular rate and regular rhythm Extremities: + edema (1-2+ BLE) Gastrointestinal (Abdomen): Inspection/Auscultation: normal bowel sounds Percussion/Palpation: abdomen soft; abdomen nontender Musculoskeletal: Extremities: strength 5/5 throughout Skin: no rashes, warm and dry Psychiatric: Orientation: alert, oriented to person and oriented to place Affect: + flat affect Insight: good insight Judgement: good judgement Results & Data Vital Signs (Past 12 Hours) Vital Signs Temp Pulse Pulse Resp BP BP BP 04/29/19 15:05 72 04/29/19 14:43 36.6 C 70 18 132/61 04/29/19 13:45 37.0 C 71 71 138/87 138/87 04/29/19 13:40 47 L 110/47 L 04/29/19 13:20 70 94/70 L 04/29/19 13:00 70 105/60 04/29/19 12:40 80 108/48 L 04/29/19 12:20 80 110/47 L 04/29/19 12:00 64 94/67 L 04/29/19 11:40 70 118/55 L 04/29/19 11:20 70 143/75 H 04/29/19 11:00 70 133/67 04/29/19 10:53 37.2 C 69 69 143/72 H 04/29/19 08:32 36.7 C 63 19 138/74 04/29/19 07:00 71 Pulse Ox 04/29/19 15:05 04/29/19 14:43 04/29/19 13:45 04/29/19 13:40 04/29/19 13:20 04/29/19 13:00 04/29/19 12:40 04/29/19 12:20 04/29/19 12:00 04/29/19 11:40 04/29/19 11:20 04/29/19 11:00 04/29/19 10:53 04/29/19 08:32 94 04/29/19 07:00 Laboratory Results 04/29/19 06:23 04/29/19 06:23
--- NOTE | 2019-04-29 17:48 | Hospitalist Progress Note ---
Date of Service April 29, 2019 Assessment & Plan (1) Sacral decubitus ulcer: Possible Sepsis on admission with elevated lactate and pro calcitonin level Immunocompromised patient, chronic steroid Use --CT ABD:Moderate subcutaneous edema within the right posterior abdominal wall and left flank. This could be due to prior soft tissue contusion. Mild subcutaneous edema/fat stranding at the level the sacrum. However, no definite soft tissue ulceration or underlying bony destruction to suggest osteomyelitis. Small bilateral pleural effusions persist. Mild congestive change on the background of chronic interstitial thickening. This has improved. Cholecystectomy. No definite bowel wall thickening or obstruction. Mild ileus. Mildly distended bladder. Blood cultures: No growth to date Wound Cx: Morganella Received IV daptomycin discontinued Continued IV Zosyn and changed to oral Cefdinir from today-to continue for a total of 4 week Continue wound care -appreciate input and recommendation Appreciate ID input and recommendation We will give oral antibiotic to continue for 4 weeks in total Will need appropriate wound care as per the wound care nurse She was provided with a new mattress and was advised to have frequent postural change to avoid continued pressure on sacrum Refused physical therapy today Advised to participate more in physical therapy Leukocytosis No source of infection without any fever and/or chills Could be secondary to use of Megace We will monitor No more additional antibiotic at this time Anorexia [id number] renal disease, antibiotic and current illness Will try Megace Boost ordered Anuric she has seems to be better and she has been taking boost regularly and trying to eat more Supratherapeutic INR INR: 9.4>7.1>> 2.2 Received Vitamin K Resumed Coumadin subsequently INR is subtherapeutic and will increase the dose of Coumadin Monitor INR-has been therapeutic at 2.0 as of 04/27/2019 INR is 3.2 today and will decrease her Coumadin dose from today Chronic diastolic heart failure Volume Overload on presentation ESRD Last EF: 60-65% Volume status managed with HD Patient is on MWF dialysis Appreciate Nephrology help Hyponatremia Hypochloremia Due to Volume overload No change in mental status Sodium 129 and chloride 93 as of 04/24/2019 Hyponatremia is not yet improved We will change D5-D5 NS and continue dialysis Monitor PRP-sodium level has been up at 132 and 130 as of 04/28/2019 Sick sinus syndrome S/P PPM On Metoprolol Resumed Coumadin today Monitor INR-1.61 04/26/2019 ESRD Anemia of Chronic disease S/P Insertion of Perm Catheter, Right Internal Jugular Approach-by Dr. Sifuentes on seventh of this month Appreciate Nephrology Input on Dialysis MWF Hypertension BP relatively low Hold amlodipine, hydralazine for now Adjust medications as needed Hyperlipidemia Hold statin while on daptomycin H/O Pituitary tumor S/P Surgery Seizure disorder Continue Keppra Hyperglycemia likely steroid-induced HbA1C:4.7 DVT Px: Coumadin CODE STATUS Full Code Disposition Needs Rehab Placement Family unable to take care of the patient Case Management consulted for discharge planning Has been living with her who has been helping her in and out of bed Refusing PT and OT therapy She was advised to participate in PT and OT to get better Awaiting placement-likely discharge tomorrow on acceptance to SNF Subjective 04/24/2019 The patient was seen and examined in medical floor She has been weak and lethargic but denies any other symptoms She has not been out of bed since admission Denies any fever and/or chills, any nausea and/or vomiting or any pain in pelvis 04/25/2019 Patient was seen and examined in medical floor She remains very weak and lethargic and does not want to participate in physical therapy She has not been eating or drinking enough and her sodium remains low Denies any other significant symptoms 04/26/2019 The patient was seen and examined in medical floor She remains stable but generally weak and lethargic and has not been participating in PT and OT Denies any acute symptoms 04/27/2019 Patient was seen and examined in presence of the She complains to have ongoing anorexia and she has not been eating or drinking enough Her has been trying to help her oral intake but has not been able to do so for the last 3 months Remains generally weak and lethargic She is not able to participate in physical therapy 04/28/2019 Patient was seen and examined in the medical floor Her sacral wounds have been getting worse Continue current dressing as per wound care and reevaluation by wound care nurse tomorrow 04/29/2019 The patient is seen and examined in medical telemetry unit She has been remained stable with extreme lethargy and anorexia Noted to have high white count without any fever and/or chills Chest x-ray remains unremarkable Did not participate in physical therapy today Review of Systems Review of Systems: All systems reviewed and are unremarkable except as noted below Constitutional: + weakness and + anorexia Physical Exam Physical Exam: Lying in bed comfortably Constitutional: well developed, well nourished, + ill appearing and + morbidly obese; not in distress Eyes: PERRL, conjunctivae normal, anicteric sclerae EOM intact bilaterally ENMT: Mallampati Class: II Neck: trachea midline, no thyromegaly normal visual inspection; no nuchal rigidity Respiratory: normal respiratory effort and + cough (w/ deep breaths for lung exam) Auscultation: lungs clear to auscultation bilaterally, + diminished lung sounds and + rhonchi Cardiovascular: RRR, no murmur, no edema Rate/Rhythm: regular rate, regular rhythm and + irregularly irregular Vessels: + abnormal peripheral pulses Extremities: + edema (3+ BLE) and + vascular access device (R chest permcath hanging from exit site, ~10 inches of catheter visible.) Gastrointestinal (Abdomen): Inspection/Auscultation: normal bowel sounds Percussion/Palpation: abdomen soft; abdomen nontender Musculoskeletal: no cyanosis or clubbing, extremities motor strength 5/5 Head/Neck/Chest: normocephalic and head atraumatic Extremities: strength 5/5 throughout Skin: no rashes, warm and dry Neurologic: moves all extremities and awake; no focal motor deficits and not confused Psychiatric: A+Ox3, euthymic affect Orientation: alert, oriented x 3, oriented to person and oriented to place Affect: + flat affect Insight: good insight Judgement: good judgement Lymphatic: no cervical or axillary lymphadenopathy Results & Data Vital Signs (Past 12 Hours) Vital Signs Temp Pulse Pulse Resp BP BP BP 04/29/19 15:05 72 04/29/19 14:43 36.6 C 70 18 132/61 04/29/19 13:45 37.0 C 71 71 138/87 138/87 04/29/19 13:40 47 L 110/47 L 04/29/19 13:20 70 94/70 L 04/29/19 13:00 70 105/60 04/29/19 12:40 80 108/48 L 04/29/19 12:20 80 110/47 L 04/29/19 12:00 64 94/67 L 04/29/19 11:40 70 118/55 L 04/29/19 11:20 70 143/75 H 04/29/19 11:00 70 133/67 04/29/19 10:53 37.2 C 69 69 143/72 H 04/29/19 08:32 36.7 C 63 19 138/74 04/29/19 07:00 71 Pulse Ox 04/29/19 15:05 04/29/19 14:43 04/29/19 13:45 04/29/19 13:40 04/29/19 13:20 04/29/19 13:00 04/29/19 12:40 04/29/19 12:20 04/29/19 12:00 04/29/19 11:40 04/29/19 11:20 04/29/19 11:00 04/29/19 10:53 04/29/19 08:32 94 04/29/19 07:00 Laboratory Results Short CBC 04/29/19 Range/Units 06:23 WBC 19.69 H (4.8-10.8) K/uL Hgb 9.0 L (12.0-16.0) g/dL Hct 29.1 L (37-47) % Plt Count 77 L (130-400) K/uL BMP 04/29/19 06:23 Sodium 128 L Potassium 4.5 Chloride 94 L Carbon Dioxide 23 BUN 27 H D Creatinine 3.65 H D Glucose 81 Calcium 8.7 Medications Administered Current Inpatient Medications Acetaminophen (Tylenol) 650 mg PO Q4H PRN PRN Reason: Pain or Fever Stop: 05/20/19 22:06 Amlodipine Besylate (Norvasc) 2.5 mg PO BID [facility] Stop: 05/21/19 20:59 Last Admin: 04/22/19 09:25 Dose: Not Given Documented by: Brimonidine Tartrate (Alphagan 0.2%) 1 drops OPB BID [facility] Stop: 05/29/19 20:59 Brinzolamide (Azopt) 1 drops OPB BID [facility] Stop: 05/29/19 20:59 Cefdinir (Omnicef Cap) 300 mg PO Q24H [facility]; Protocol Stop: 05/04/19 15:59 Last Admin: 04/29/19 16:45 Dose: 300 mg Documented by: Glucagon (Glucagen) 1 mg SQ UD PRN; Protocol PRN Reason: Hypoglycemia Protocol Stop: 05/23/19 08:36 Glucose (Dex4 Glucose) 4 - 8 tabs PO UD PRN; Protocol PRN Reason: Hypoglycemia Protocol Stop: 05/23/19 08:36 Last Admin: 04/24/19 17:03 Dose: 4 tabs Documented by: Glucose (Glucose 40%) 15 - 30 gm PO UD PRN; Protocol PRN Reason: Hypoglycemia Protocol Stop: 05/23/19 08:36 Last Admin: 04/24/19 17:11 Dose: 15 gm Documented by: Hydralazine HCl (Apresoline) 12.5 mg PO BID [facility] Stop: 05/21/19 08:59 Last Admin: 04/22/19 09:26 Dose: Not Given Documented by: Hydromorphone HCl (Dilaudid) 0.25 mg IV Q3H PRN PRN Reason: Pain Stop: 05/04/19 22:32 Last Admin: 04/29/19 09:07 Dose: 0.25 mg Documented by: Promethazine HCl 12.5 mg/ (Sodium Chloride) 50.5 mls @ 202 mls/hr IV Q6H PRN PRN Reason: Nausea And Vomiting Stop: 05/20/19 22:32 Last Infusion: 04/29/19 14:42 Dose: Infused Documented by: Levetiracetam (Keppra) 500 mg PO DAILY [facility] Stop: 05/24/19 08:59 Last Admin: 04/29/19 16:47 Dose: 500 mg Documented by: Levetiracetam (Keppra) 250 mg PO DAILY@1600 PRN PRN Reason: AFTER EACH DIALYSIS Stop: 05/23/19 14:32 Last Admin: 04/27/19 19:00 Dose: 250 mg Documented by: Megestrol Acetate (Megace) 400 mg PO QAM [facility] Stop: 05/27/19 11:29 Last Admin: 04/29/19 08:10 Dose: 400 mg Documented by: Metoprolol Tartrate (Lopressor) 50 mg PO BID [facility] Stop: 05/21/19 08:59 Last Admin: 04/29/19 08:10 Dose: Not Given Documented by: Miconazole Nitrate (Desenex) 1 appln EXT PRN PRN PRN Reason: Affected Skin Folds Stop: 05/20/19 23:18 Miscellaneous (Carbohydrates For Hypoglycemia) 15 - 30 gm PO UD PRN PRN Reason: Hypoglycemia Protocol Stop: 05/23/19 08:36 Last Admin: 04/24/19 16:36 Dose: 15 gm Documented by: Miscellaneous (Pending Order) 1 ea N/A DAILY@1600 [facility] Stop: 05/24/19 15:59 Last Admin: 04/29/19 16:47 Dose: 1 ea Documented by: Nitroglycerin (Nitrostat) 0.4 mg SL UD PRN PRN Reason: Chest Pain Stop: 05/20/19 22:06 Oxycodone HCl (Roxicodone Immediate Rel) 5 mg PO Q4H PRN PRN Reason: Pain Stop: 05/04/19 22:32 Last Admin: 04/29/19 14:30 Dose: 5 mg Documented by: Prednisone (Prednisone) 10 mg PO DAILY [facility] Stop: 05/21/19 08:59 Last Admin: 04/29/19 08:11 Dose: 10 mg Documented by: Trazodone HCl (Desyrel) 50 mg PO HS PRN PRN Reason: Sleep Stop: 05/20/19 22:06 Warfarin Sodium (Coumadin) 1 mg PO DAILY@1600 [facility] Stop: 05/23/19 15:59 Last Admin: 04/29/19 16:44 Dose: 1 mg Documented by:
[2019-04-29] MEDS: BRINZOLAMIDE (AZOPT) OPS 10 ML BTL OPB SCH (19:44)
[2019-04-29] MEDS: BRIMONIDINE TARTRATE 0.2% 5ML OPB SCH (19:44)
[2019-04-30] MEDS: OXYCODONE HCL IR 5 MG TAB (IMMEDIATE RELEASE) PO PRN ×3 (05:07→21:58)
[2019-04-30 07:38] LABS: Mean Corpuscular Hgb Conc 29.9 g/dL (32-36); Nucleated RBC # (auto) 0.25 K/uL (0-0); Nucleated RBC % (auto) 1.9 %
[2019-04-30 08:03] LABS: Hematocrit (blood only) 29.4 % (37-47); Hemoglobin 8.8 g/dL (12.0-16.0); Mean Corpuscular Hemoglobin 26.5 pg (25-34); Mean Corpuscular Volume 88.6 fL (80-100); RDW Coefficient of Variation 20.5 % (11.5-14.5); RDW Standard Deviation 61.5 fL (36.4-46.3); Red Blood Count 3.32 M/uL (4.2-5.4); White Blood Count 13.54 K/uL (4.8-10.8)
[2019-04-30 08:06] LABS: Platelet Count 64 K/uL (130-400)
[2019-04-30 08:38] LABS: Anisocytosis Present; Basophilic Stippling 1+; Basophils # (auto) 0.01 K/uL (0-0.2); Basophils % (auto) 0.1 %; Eosinophils # (auto) 0.01 K/uL (0-0.5); Eosinophils % (auto) 0.1 %; Immature Granulocytes # (auto) 0.06 K/uL (0.00-0.02); Immature Granulocytes % (auto) 0.4 %; Lymphocytes # (auto) 1.26 K/uL (1.2-3.4); Lymphocytes % (auto) 9.3 %; Monocytes # (auto) 1.35 K/uL (0.11-0.59); Neutrophils # (auto) 10.85 K/uL (1.4-6.5); Neutrophils % (auto) 80.1 %; Platelet Estimate Decreased (Normal); Polychromasia 1+; Schistocytes Occasional; Spherocytes 1+
[2019-04-30] MEDS: BRIMONIDINE TARTRATE 0.2% 5ML OPB SCH ×2 (09:06→21:56)
[2019-04-30] MEDS: MEGESTROL ACETATE SUSP 400 MG/10 ML UDC PO SCH (09:06)
[2019-04-30] MEDS: predniSONE 10 MG TABLET PO SCH (09:06)
[2019-04-30] MEDS: METOPROLOL TARTRATE 50 MG TAB PO SCH ×2 (09:06→21:56)
[2019-04-30] MEDS: BRINZOLAMIDE (AZOPT) OPS 10 ML BTL OPB SCH ×2 (09:06→21:55)
[2019-04-30] MEDS: HYDROmorphone INJ 0.5 MG/0.5 ML SYR IV PRN ×2 (12:33→17:47)
--- NOTE | 2019-04-30 13:32 | CT Scan Report ---
Study: CT pelvis HISTORY: Infection: COMPARISON: 04/20/2019 FINDINGS: Soft tissue ulceration dorsal to the sacrococcygeal junction and inferior coccygeal segment s. No evidence for bony destructive process. No evidence for well-defined abscess or collection L there is geographic cellulitis extending over a region approximately 6 cm. The remainder of the bony pelvis is remarkable for considerable degenerative changes throughout. IMPRESSION: 1. Soft tissue cellulitis with a soft tissue ulceration posterior to the sacrococcygeal region. 2. No evidence for bony destructive process or osteomyelitis. 3. Focal 6 cm regional area of cellulitis primarily involving the subcutaneous fat. 4. Considerable degenerative change of all remaining bony structures. Electronically signed by: Kushal Orlando M.D. 04/30/2019 1:30 PM
--- NOTE | 2019-04-30 16:02 | Hospitalist Progress Note ---
Date of Service April 30, 2019 Assessment & Plan (1) Sacral decubitus ulcer: Possible Sepsis on admission with elevated lactate and pro calcitonin level Immunocompromised patient, chronic steroid Use --CT ABD:Moderate subcutaneous edema within the right posterior abdominal wall and left flank. This could be due to prior soft tissue contusion. Mild subcutaneous edema/fat stranding at the level the sacrum. However, no definite soft tissue ulceration or underlying bony destruction to suggest osteomyelitis. Small bilateral pleural effusions persist. Mild congestive change on the background of chronic interstitial thickening. This has improved. Cholecystectomy. No definite bowel wall thickening or obstruction. Mild ileus. Mildly distended bladder. Blood cultures: No growth to date Wound Cx: Morganella Received IV daptomycin discontinued Continued IV Zosyn and changed to oral Cefdinir from today-to continue for a total of 4 week Continue wound care -appreciate input and recommendation Appreciate ID input and recommendation We will give oral antibiotic to continue for 4 weeks in total Will need appropriate wound care as per the wound care nurse She was provided with a new mattress and was advised to have frequent postural change to avoid continued pressure on sacrum Refused physical therapy today Advised to participate more in physical therapy Leukocytosis No source of infection without any fever and/or chills Could be secondary to use of Megace Chest x-ray did not show any pneumonia No fever and no chills Likely secondary to worsening of the sacral decubitus CT scan of the pelvis did not show any osteomyelitis We will continue care of the wounds as advised Anorexia Ejyrkvckzweesl-[id number] renal disease, antibiotic and current illness Will try Megace Boost ordered She has been taking boost Supratherapeutic INR INR: 9.4>7.1>> 2.2 Received Vitamin K Resumed Coumadin subsequently INR is subtherapeutic and will increase the dose of Coumadin Monitor INR-has been therapeutic at 2.0 as of 04/27/2019 INR is 2.7 as of 04/30 Chronic diastolic heart failure Volume Overload on presentation ESRD Last EF: 60-65% Volume status managed with HD Patient is on MWF dialysis Appreciate Nephrology help Hyponatremia Hypochloremia Due to Volume overload No change in mental status Sodium 129 and chloride 93 as of 04/24/2019 Hyponatremia is not yet improved We will change D5-D5 NS and continue dialysis Monitor PRP-sodium level has been up at 132 and 130 as of 04/28/2019 Sodium has been around 128 Sick sinus syndrome S/P PPM On Metoprolol Resumed Coumadin today Monitor INR-1.61 04/26/2019 ESRD Anemia of Chronic disease S/P Insertion of Perm Catheter, Right Internal Jugular Approach-by Dr. Sifuentes on seventh of this month Appreciate Nephrology Input on Dialysis MWF Hypertension BP relatively low Hold amlodipine, hydralazine for now Adjust medications as needed Hyperlipidemia Hold statin while on daptomycin H/O Pituitary tumor S/P Surgery Seizure disorder Continue Keppra Hyperglycemia likely steroid-induced HbA1C:4.7 DVT Px: Coumadin CODE STATUS Full Code Disposition Needs Rehab Placement Family unable to take care of the patient Case Management consulted for discharge planning Has been living with her who has been helping her in and out of bed Refusing PT and OT therapy She was advised to participate in PT and OT to get better Not yet accepted to SNF Subjective 04/24/2019 The patient was seen and examined in medical floor She has been weak and lethargic but denies any other symptoms She has not been out of bed since admission Denies any fever and/or chills, any nausea and/or vomiting or any pain in pelvis 04/25/2019 Patient was seen and examined in medical floor She remains very weak and lethargic and does not want to participate in physical therapy She has not been eating or drinking enough and her sodium remains low Denies any other significant symptoms 04/26/2019 The patient was seen and examined in medical floor She remains stable but generally weak and lethargic and has not been participating in PT and OT Denies any acute symptoms 04/27/2019 Patient was seen and examined in presence of the She complains to have ongoing anorexia and she has not been eating or drinking enough Her has been trying to help her oral intake but has not been able to do so for the last 3 months Remains generally weak and lethargic She is not able to participate in physical therapy 04/28/2019 Patient was seen and examined in the medical floor Her sacral wounds have been getting worse Continue current dressing as per wound care and reevaluation by wound care nurse tomorrow 04/29/2019 The patient is seen and examined in medical telemetry unit She has been remained stable with extreme lethargy and anorexia Noted to have high white count without any fever and/or chills Chest x-ray remains unremarkable Did not participate in physical therapy today 04/30/2019 Patient was seen and examined in medical telemetry unit She has been having diarrhea a lot and clinically she is worse today with increasing weakness and tiredness and pain No fever and/or chills and she remains hemodynamically stable Review of Systems Review of Systems: All systems reviewed and are unremarkable except as noted below Constitutional: + weakness and + anorexia Physical Exam Physical Exam: Lying in bed without any acute distress but looked very lethargic Constitutional: well developed, well nourished, + ill appearing and + morbidly obese; not in distress Eyes: PERRL, conjunctivae normal, anicteric sclerae EOM intact bilaterally ENMT: external ear and nose normal, oropharynx normal Mallampati Class: II Neck: trachea midline, no thyromegaly normal visual inspection; no nuchal rigidity Respiratory: normal respiratory effort and + cough (w/ deep breaths for lung exam) Auscultation: lungs clear to auscultation bilaterally, + diminished lung sounds and + rhonchi Cardiovascular: Rate/Rhythm: regular rate, regular rhythm and + irregularly irregular Vessels: + abnormal peripheral pulses Extremities: + edema (3+ BLE) and + vascular access device (R chest permcath hanging from exit site, ~10 inches of catheter visible.) Gastrointestinal (Abdomen): Inspection/Auscultation: normal bowel sounds Percussion/Palpation: abdomen soft; abdomen nontender Musculoskeletal: no cyanosis or clubbing, extremities motor strength 5/5 Head/Neck/Chest: normocephalic and head atraumatic Extremities: strength 5/5 throughout No acute arthritis any joints Skin: no rashes, warm and dry Has sacral decubiti please see the photo Neurologic: moves all extremities and awake; no focal motor deficits and not confused Extremely weak and lethargic Psychiatric: A+Ox3, euthymic affect Orientation: alert, oriented x 3, oriented to person and oriented to place Affect: + flat affect Insight: good insight Judgement: good judgement Lymphatic: no cervical or axillary lymphadenopathy Results & Data Vital Signs (Past 12 Hours) Vital Signs Temp Pulse Pulse Resp BP Pulse Ox 04/30/19 15:14 36.6 C 70 18 135/66 91 04/30/19 11:27 36.5 C 94 H 16 136/69 93 04/30/19 07:21 36.4 C L 72 16 139/74 94 04/30/19 07:00 71 01/14/20 04:02 36.8 C 73 20 137/72 94 Laboratory Results Short CBC 04/30/19 Range/Units 06:54 WBC 13.54 H (4.8-10.8) K/uL Hgb 8.8 L (12.0-16.0) g/dL Hct 29.4 L (37-47) % Plt Count 64 L (130-400) K/uL Medications Administered Current Inpatient Medications Acetaminophen (Tylenol) 650 mg PO Q4H PRN PRN Reason: Pain or Fever Stop: 05/20/19 22:06 Amlodipine Besylate (Norvasc) 2.5 mg PO BID [facility] Stop: 05/21/19 20:59 Last Admin: 04/22/19 09:25 Dose: Not Given Documented by: Brimonidine Tartrate (Alphagan 0.2%) 1 drops OPB BID [facility] Stop: 05/29/19 20:59 Last Admin: 04/30/19 09:06 Dose: 1 drops Documented by: Brinzolamide (Azopt) 1 drops OPB BID [facility] Stop: 05/29/19 20:59 Last Admin: 04/30/19 09:06 Dose: 1 drops Documented by: Cefdinir (Omnicef Cap) 300 mg PO Q24H [facility]; Protocol Stop: 05/04/19 15:59 Last Admin: 04/29/19 16:45 Dose: 300 mg Documented by: Glucagon (Glucagen) 1 mg SQ UD PRN; Protocol PRN Reason: Hypoglycemia Protocol Stop: 05/23/19 08:36 Glucose (Dex4 Glucose) 4 - 8 tabs PO UD PRN; Protocol PRN Reason: Hypoglycemia Protocol Stop: 05/23/19 08:36 Last Admin: 04/24/19 17:03 Dose: 4 tabs Documented by: Glucose (Glucose 40%) 15 - 30 gm PO UD PRN; Protocol PRN Reason: Hypoglycemia Protocol Stop: 05/23/19 08:36 Last Admin: 04/24/19 17:11 Dose: 15 gm Documented by: Hydralazine HCl (Apresoline) 12.5 mg PO BID [facility] Stop: 05/21/19 08:59 Last Admin: 04/22/19 09:26 Dose: Not Given Documented by: Hydromorphone HCl (Dilaudid) 0.25 mg IV Q3H PRN PRN Reason: Pain Stop: 05/04/19 22:32 Last Admin: 04/30/19 12:33 Dose: 0.25 mg Documented by: Promethazine HCl 12.5 mg/ (Sodium Chloride) 50.5 mls @ 202 mls/hr IV Q6H PRN PRN Reason: Nausea And Vomiting Stop: 05/20/19 22:32 Last Infusion: 04/29/19 14:42 Dose: Infused Documented by: Levetiracetam (Keppra) 500 mg PO DAILY [facility] Stop: 05/24/19 08:59 Last Admin: 04/29/19 16:47 Dose: 500 mg Documented by: Levetiracetam (Keppra) 250 mg PO DAILY@1600 PRN PRN Reason: AFTER EACH DIALYSIS Stop: 05/23/19 14:32 Last Admin: 04/27/19 19:00 Dose: 250 mg Documented by: Megestrol Acetate (Megace) 400 mg PO QAM [facility] Stop: 05/27/19 11:29 Last Admin: 04/30/19 09:06 Dose: 400 mg Documented by: Metoprolol Tartrate (Lopressor) 50 mg PO BID [facility] Stop: 05/21/19 08:59 Last Admin: 04/30/19 09:06 Dose: 50 mg Documented by: Miconazole Nitrate (Desenex) 1 appln EXT PRN PRN PRN Reason: Affected Skin Folds Stop: 05/20/19 23:18 Miscellaneous (Carbohydrates For Hypoglycemia) 15 - 30 gm PO UD PRN PRN Reason: Hypoglycemia Protocol Stop: 05/23/19 08:36 Last Admin: 04/24/19 16:36 Dose: 15 gm Documented by: Miscellaneous (Pending Order) 1 ea N/A DAILY@1600 [facility] Stop: 05/24/19 15:59 Last Admin: 04/29/19 16:47 Dose: 1 ea Documented by: Nitroglycerin (Nitrostat) 0.4 mg SL UD PRN PRN Reason: Chest Pain Stop: 05/20/19 22:06 Oxycodone HCl (Roxicodone Immediate Rel) 5 mg PO Q4H PRN PRN Reason: Pain Stop: 05/04/19 22:32 Last Admin: 04/30/19 09:39 Dose: 5 mg Documented by: Prednisone (Prednisone) 10 mg PO DAILY [facility] Stop: 05/21/19 08:59 Last Admin: 04/30/19 09:06 Dose: 10 mg Documented by: Trazodone HCl (Desyrel) 50 mg PO HS PRN PRN Reason: Sleep Stop: 05/20/19 22:06 Warfarin Sodium (Coumadin) 1 mg PO DAILY@1600 [facility] Stop: 05/23/19 15:59 Last Admin: 04/29/19 16:44 Dose: 1 mg Documented by:
[2019-04-30] MEDS: WARFARIN SOD 1 MG TAB PO SCH (17:04)
[2019-04-30] MEDS: CEFDINIR 300 MG CAP PO SCH (17:05)
[2019-05-01] MEDS ORDERED: LORazepam 0.5 MG TAB PO STA (01:00)
[2019-05-01] MEDS ORDERED: EPOETIN ALFA 20,000 UNITS/ML VIAL IV ONE (07:00)
[2019-05-01] MEDS ORDERED: SODIUM CHLORIDE 0.9% 1000ML 1,000 ML IV PRN (07:00)
[2019-05-01] MEDS: METOPROLOL TARTRATE 50 MG TAB PO SCH ×2 (07:56→21:26)
[2019-05-01] MEDS: predniSONE 10 MG TABLET PO SCH (07:56)
[2019-05-01] MEDS: levETIRAcetam 500 MG TAB PO SCH (07:56)
[2019-05-01] MEDS: MEGESTROL ACETATE SUSP 400 MG/10 ML UDC PO SCH (07:56)
[2019-05-01] MEDS: BRIMONIDINE TARTRATE 0.2% 5ML OPB SCH ×2 (07:57→21:18)
[2019-05-01] MEDS: BRINZOLAMIDE (AZOPT) OPS 10 ML BTL OPB SCH ×2 (07:57→21:17)
[2019-05-01] MEDS: OXYCODONE HCL IR 5 MG TAB (IMMEDIATE RELEASE) PO PRN ×2 (11:08→21:18)
[2019-05-01] MEDS: PROMETHAZINE HCL 12.5 MG in SODIUM CHLORIDE 0.9% 50 ML IV PRN (13:44)
--- NOTE | 2019-05-01 13:48 | Hospitalist Progress Note ---
Date of Service May 01, 2019 Assessment & Plan (1) Sacral decubitus ulcer: Possible Sepsis on admission with elevated lactate and pro calcitonin level Immunocompromised patient, chronic steroid Use CT abd/pelvis showed moderate subcutaneous edema within the right posterior abdominal wall and left flank. This could be due to prior soft tissue contusion. Mild subcutaneous edema/fat stranding at the level the sacrum. However, no definite soft tissue ulceration or underlying bony destruction to suggest osteomyelitis. Small bilateral pleural effusions persist. Mild congestive change on the background of chronic interstitial thickening. This has improved. Cholecystectomy. No definite bowel wall thickening or obstruction. Mild ileus. Mildly distended bladder. Blood culture no growth Wound Cx grew Morganella Received IV daptomycin discontinued Continued IV Zosyn and changed to oral Cefdinir from today-to continue for a total of 4 week Continue daily wound care Case discussed with ID and recommended to continue Cefdinir to complete 4 weeks course of abx She was provided with a new mattress and was advised to have frequent postural change to avoid continued pressure on sacrum Refused physical therapy today Advised to participate more in physical therapy Leukocytosis Possible related to sacral decubitus ulcer CT scan of the pelvis did not show any osteomyelitis Could be secondary to use of Megace Chest x-ray did not show any pneumonia No fever and no chills Continue monitor CBC Anorexia [id number]-[id number] renal disease, antibiotic and current illness Continue Megace Continue Boost supplement Supratherapeutic INR INR: 9.4>7.1>> 2.2 Received Vitamin K Continue coumadin Last INR 2.7 as of 04/30 Monitor PT/INR Chronic diastolic heart failure Volume Overload on presentation Last ECHO showed 60-65% Continue HD on MWF Will continue monitor closely Hyponatremia Hypochloremia Due to Volume overload No change in mental status Sodium 128 and chloride 94 as of 04/29/2019 Had HD done Continue monitor BMP Sick sinus syndrome S/P PPM On Metoprolol Continue coumadin daily ESRD Anemia of Chronic disease S/P Insertion of Perm Catheter HD done today on Dialysis MWF Hypertension BP stable Amlodipine, hydralazine on hold Continue monitor BP Hyperlipidemia Will resume statin since dapto was discontinued H/O Pituitary tumor S/P Surgery Seizure disorder Continue Keppra Hyperglycemia likely steroid-induced HbA1C:4.7 DVT Px: Coumadin CODE STATUS Full Code Disposition Family unable to take care of the patient Waiting for placement to SNF Subjective Pt was seen and examined Lying in bed with no acute distress Pt continues to have diarrhea She said that she felt nausea during the HD She said that she does not have any appetite today She does not want to go to a fdc I explained to her that her cannot provide care for her Denies any chest pain, palpitation, dizziness and SOB Physical Exam Physical Exam: General- No acute distress Head- atraumatic Eyes- PERRL, EOMI, ENT- oropharynx clear Neck- supple, no JVD Lungs- Diminished BS Heart- regular rhythm; no murmur Abdomen- normal bowel sounds, soft, nontender Extremities- no calf tenderness, + edema, + vascular access device perm cath in right chest Neuro- alert, oriented. PERRL, EOMI; no facial palsy; no dysarthria Skin- warm & dry Results & Data Vital Signs (Past 12 Hours) Vital Signs Temp Pulse Pulse Resp BP BP BP 05/01/19 12:25 36.4 C L 83 83 116/52 L 116/52 L 05/01/19 12:20 75 78/39 L 05/01/19 12:00 63 111/54 L 05/01/19 11:40 69 91/47 L 05/01/19 11:20 80 99/80 L 05/01/19 11:00 74 89/31 L 05/01/19 10:40 70 138/65 05/01/19 10:20 82 103/31 L 05/01/19 10:00 70 87/50 L 05/01/19 09:40 92 H 105/29 L 05/01/19 09:20 70 110/50 L 05/01/19 09:09 36.6 C 76 76 137/48 L 05/01/19 07:50 36.5 C 71 16 128/63 05/01/19 04:00 37.1 C 69 18 104/65 Pulse Ox 05/01/19 12:25 05/01/19 12:20 05/01/19 12:00 05/01/19 11:40 05/01/19 11:20 05/01/19 11:00 05/01/19 10:40 05/01/19 10:20 05/01/19 10:00 05/01/19 09:40 05/01/19 09:20 05/01/19 09:09 05/01/19 07:50 05/01/19 04:00 97
[2019-05-01] MEDS: HYDROmorphone INJ 0.5 MG/0.5 ML SYR IV PRN (14:36)
--- NOTE | 2019-05-01 16:30 | Dialysis Progress Note ---
Date of Service May 01, 2019 Assessment & Plan (1) ESRD (end stage renal disease) on dialysis: unfortunately no renal recovery since NADIA in February and now esrd; aiming for 2.5 L off today and got this again today; catheter was placed 04/23 after other fell out 04/22 -for HD today 3.5 hr w/ 2.5 L UF goal > ended 15 min early today d/t hypotension -next HD on 05/03 -hyponatremia reflects progressive chronic volume overload for her -- will improve w/ dialysis -daily bmp -cont 1.2L FR (2) Anemia of chronic disease: check hgb q24 hrs; has dropped some; t stn 24% on 04/23 -epo w/ HD (3) Sacral decubitus ulcer: per primary service and wound team (4) Thrombocytopenia: >50% drop this admission; running dialysis heparin free -plts have not rebounded -likeliest bone marrow suppression from abtx -cont daily cbc Subjective seen on hd this am; no uncontrolled pain, no sob, no n/v; has rectal tube now - was not aware Review of Systems Review of Systems: All systems reviewed & are unremarkable except as noted in HPI & below Physical Exam Constitutional: well developed and well nourished; no acute distress (on RA) Eyes: EOM intact bilaterally ENMT: Ears: no external ear abnormality Nose: no external nose abnormality Mouth: + dry oral mucous membranes Neck: no nuchal rigidity Respiratory: normal respiratory effort Auscultation: lungs clear to auscultation bilaterally and + diminished lung sounds Cardiovascular: Rate/Rhythm: regular rate and regular rhythm Extremities: + edema (1-2+ BLE) Gastrointestinal (Abdomen): Inspection/Auscultation: normal bowel sounds Percussion/Palpation: abdomen soft; abdomen nontender rectal tube present Musculoskeletal: Extremities: strength 5/5 throughout Skin: no rashes, warm and dry Neurologic: jett, limited but appropriate speech, no tremor Psychiatric: Orientation: alert, oriented to person and oriented to place Affect: + flat affect Insight: + limited insight Judgement: + limited judgement Results & Data Vital Signs (Past 12 Hours) Vital Signs Temp Pulse Pulse Resp BP BP Pulse Ox 05/01/19 15:00 36.7 C 70 18 128/75 96 05/01/19 12:25 36.4 C L 83 83 116/52 L 116/52 L 05/01/19 12:20 75 78/39 L 05/01/19 12:00 63 111/54 L 05/01/19 11:40 69 91/47 L 05/01/19 11:20 80 99/80 L 05/01/19 11:00 74 89/31 L 05/01/19 10:40 70 138/65 05/01/19 10:20 82 103/31 L 05/01/19 10:00 70 87/50 L 05/01/19 09:40 92 H 105/29 L 05/01/19 09:20 70 110/50 L 05/01/19 09:09 36.6 C 76 76 137/48 L 05/01/19 07:50 36.5 C 71 16 128/63 Laboratory Results 04/30/19 06:54 04/29/19 06:23
[2019-05-01] MEDS: WARFARIN SOD 1 MG TAB PO SCH (16:31)
[2019-05-01] MEDS: CEFDINIR 300 MG CAP PO SCH (16:31)
[2019-05-01] MEDS: levETIRAcetam 250 MG TAB PO PRN (16:55)
--- NOTE | 2019-05-01 19:26 | Wound Progress Note ---
Date of Service May 01, 2019 Assessment & Plan (1) Sacral decubitus ulcer: stage 3 sacral pressure ulcer. No debridement required. Due to bridging and location of the wound patient is not a good candidate for wound vac Continue conservative treatment with aquacel ag continue antibiotics. Present on Admission?: Yes Subjective Patient seen laying at bedside. No new complaints. Review of Systems Review of Systems: All systems reviewed & are unremarkable except as noted in HPI & below Physical Exam Skin: Wound measuring as recorded in nursing notes. Wound is more demarcated. There is bridging between the two portions of the wound. Neurologic: awake; not confused Psychiatric: A+Ox3, euthymic affect Results & Data Vital Signs (Past 12 Hours) Vital Signs Temp Pulse Pulse Resp BP BP Pulse Ox 05/01/19 15:00 36.7 C 70 18 128/75 96 05/01/19 12:25 36.4 C L 83 83 116/52 L 116/52 L 05/01/19 12:20 75 78/39 L 05/01/19 12:00 63 111/54 L 05/01/19 11:40 69 91/47 L 05/01/19 11:20 80 99/80 L 05/01/19 11:00 74 89/31 L 05/01/19 10:40 70 138/65 05/01/19 10:20 82 103/31 L 05/01/19 10:00 70 87/50 L 05/01/19 09:40 92 H 105/29 L 05/01/19 09:20 70 110/50 L 05/01/19 09:09 36.6 C 76 76 137/48 L 05/01/19 07:50 36.5 C 71 16 128/[address] pelvis shows cellulitis but no evidence for osteomyelitis or abscess PG Care Time/CCT Total # of Minutes Spent Total Time Spent with Patient: Total time spent is greater than 50% in coordination of care (as documented) at patient's floor/unit and/or counseling patient:
[2019-05-02 06:33] LABS: Nucleated RBC # (auto) 0.25 K/uL (0-0)
[2019-05-02 06:59] LABS: Hematocrit (blood only) 30.8 % (37-47); Hemoglobin 9.1 g/dL (12.0-16.0); INR 2.5 (0.9-1.1); Mean Corpuscular Hemoglobin 26.3 pg (25-34); Mean Corpuscular Hgb Conc 29.5 g/dL (32-36); Platelet Count 104 K/uL (130-400); Platelet Estimate Decreased (Normal); Prothrombin Time 23.8 Seconds (9.0-12.0); RDW Coefficient of Variation 21.8 % (11.5-14.5); RDW Standard Deviation 64.7 fL (36.4-46.3); Red Blood Count 3.46 M/uL (4.2-5.4); White Blood Count 12.67 K/uL (4.8-10.8)
[2019-05-02] MEDS: METOPROLOL TARTRATE 50 MG TAB PO SCH ×2 (08:14→20:02)
[2019-05-02] MEDS: BRINZOLAMIDE (AZOPT) OPS 10 ML BTL OPB SCH ×2 (08:14→20:01)
[2019-05-02] MEDS: BRIMONIDINE TARTRATE 0.2% 5ML OPB SCH ×2 (08:14→20:01)
[2019-05-02] MEDS: MEGESTROL ACETATE SUSP 400 MG/10 ML UDC PO SCH (08:15)
[2019-05-02] MEDS: predniSONE 10 MG TABLET PO SCH (08:15)
[2019-05-02] MEDS: levETIRAcetam 500 MG TAB PO SCH (08:15)
[2019-05-02 10:04] LABS: Calcium 8.3 mg/dl (8.5-10.1); Creatinine Clr Calc Pharmacy 14.6 ml/min; Est GFR (African American) 14.6; Est GFR (Non-African American) 12.6; Potassium 3.1 mmol/L (3.5-5.1)
[2019-05-02] MEDS: CARBOHYDRATES FOR HYPOGLYCEMIA PO PRN (10:15)
[2019-05-02] MEDS: GLUCOSE 10 TABS/TUBE PO PRN (10:17)
[2019-05-02] MEDS ORDERED: DEXTROSE 50% 50 ML SYRINGE IV ONE (10:27)
[2019-05-02] MEDS: WARFARIN SOD 1 MG TAB PO SCH (16:49)
[2019-05-02] MEDS: CEFDINIR 300 MG CAP PO SCH (16:50)
--- NOTE | 2019-05-02 19:56 | Hospitalist Progress Note ---
Date of Service May 02, 2019 Assessment & Plan (1) Sacral decubitus ulcer: Possible Sepsis on admission with elevated lactate and pro calcitonin level Immunocompromised patient, chronic steroid Use CT abd/pelvis showed moderate subcutaneous edema within the right posterior abdominal wall and left flank. This could be due to prior soft tissue contusion. Mild subcutaneous edema/fat stranding at the level the sacrum. However, no definite soft tissue ulceration or underlying bony destruction to suggest osteomyelitis. Small bilateral pleural effusions persist. Mild congestive change on the background of chronic interstitial thickening. This has improved. Cholecystectomy. No definite bowel wall thickening or obstruction. Mild ileus. Mildly distended bladder. Blood culture no growth Wound Cx grew Morganella Received IV daptomycin discontinued Continued IV Zosyn and changed to oral Cefdinir from today-to continue for a total of 4 week Continue daily wound care Case discussed with ID and recommended to continue Cefdinir to complete 4 weeks course of abx She was provided with a new mattress and was advised to have frequent postural change to avoid continued pressure on sacrum Refused physical therapy today Advised to participate more in physical therapy Leukocytosis Possible related to sacral decubitus ulcer CT scan of the pelvis did not show any osteomyelitis Could be secondary to use of Megace Chest x-ray did not show any pneumonia No fever and no chills Continue monitor CBC Anorexia Wjhouwupouhttm-[id number]-glcra renal disease, antibiotic and current illness Continue Megace Continue Boost supplement Supratherapeutic INR INR: 9.4>7.1>> 2.2 Received Vitamin K Continue coumadin INR 2.5 today Monitor PT/INR Chronic diastolic heart failure Volume Overload on presentation Last ECHO showed 60-65% Continue HD on MWF Will continue monitor closely Hyponatremia Hypochloremia Due to Volume overload No change in mental status Sodium 132 today Had HD done Continue monitor BMP Sick sinus syndrome S/P PPM On Metoprolol Continue coumadin daily ESRD Anemia of Chronic disease S/P Insertion of Perm Catheter Next HD tomorrow on Dialysis MWF Hypertension BP stable Amlodipine, hydralazine on hold Continue monitor BP Hyperlipidemia Will resume statin since dapto was discontinued H/O Pituitary tumor S/P Surgery Seizure disorder Continue Keppra Hyperglycemia likely steroid-induced HbA1C:4.7 DVT Px: Coumadin CODE STATUS Full Code Disposition Family unable to take care of the patient Waiting for placement to SNF Subjective Pt was seen and examined Lying in bed with no distress Pt said that she feels tired OT/PT said that pt does not want to participate in therapy Continue to have diarrhea and poor appetite Blood sugar was low today Denies any chest pain, palpitation and SOB Physical Exam Physical Exam: General- No acute distress Head- atraumatic Eyes- PERRL, EOMI, ENT- oropharynx clear Neck- supple, no JVD Lungs- Diminished BS Heart- regular rhythm; no murmur Abdomen- normal bowel sounds, soft, nontender Extremities- no calf tenderness, + edema, + vascular access device perm cath in right chest Neuro- alert, oriented. PERRL, EOMI; no facial palsy; no dysarthria Skin- warm & dry Results & Data Vital Signs (Past 12 Hours) Vital Signs Temp Pulse Pulse Resp BP Pulse Ox 05/02/19 18:00 70 05/02/19 15:32 36.4 C L 73 20 116/65 92 05/02/19 11:27 36.7 C 73 20 115/68 96
[2019-05-03] MEDS ORDERED: GLUCOSE 10 TABS/TUBE PO PRN (02:20)
[2019-05-03] MEDS ORDERED: DEXTROSE 50% 50 ML SYRINGE IV PRN (02:20)
[2019-05-03] MEDS ORDERED: GLUCOSE 40% GEL 15 GM TUBE PO PRN (02:20)
[2019-05-03] MEDS ORDERED: GLUCAGON FOR INJ 1 MG VIAL SQ PRN (02:20)
[2019-05-03] MEDS ORDERED: CARBOHYDRATES FOR HYPOGLYCEMIA PO PRN (02:20)
[2019-05-03] MEDS ORDERED: DEXAMETHASONE SOD PHOSPHATE 4 MG in SYRINGE 0 ML IV ONE (02:45)
[2019-05-03] MEDS ORDERED: SODIUM CHLORIDE 0.9% 1000ML 1,000 ML IV PRN (07:00)
[2019-05-03] MEDS ORDERED: EPOETIN ALFA 20,000 UNITS/ML VIAL IV ONE (07:00)
[2019-05-03] MEDS: MEGESTROL ACETATE SUSP 400 MG/10 ML UDC PO SCH (08:18)
[2019-05-03] MEDS: BRINZOLAMIDE (AZOPT) OPS 10 ML BTL OPB SCH ×2 (08:19→20:22)
[2019-05-03] MEDS: levETIRAcetam 500 MG TAB PO SCH (08:19)
[2019-05-03] MEDS: BRIMONIDINE TARTRATE 0.2% 5ML OPB SCH ×2 (08:19→20:22)
[2019-05-03] MEDS: METOPROLOL TARTRATE 50 MG TAB PO SCH ×2 (09:00→20:22)
[2019-05-03 09:38] LABS: Mean Corpuscular Hgb Conc 30.2 g/dL (32-36); Nucleated RBC # (auto) 0.17 K/uL (0-0); Nucleated RBC % (auto) 1.2 %
[2019-05-03 09:45] LABS: Hematocrit (blood only) 27.5 % (37-47); Hemoglobin 8.3 g/dL (12.0-16.0); Mean Corpuscular Hemoglobin 26.4 pg (25-34); Mean Corpuscular Volume 87.6 fL (80-100); RDW Coefficient of Variation 21.7 % (11.5-14.5); RDW Standard Deviation 66.9 fL (36.4-46.3); Red Blood Count 3.14 M/uL (4.2-5.4); White Blood Count 14.66 K/uL (4.8-10.8)
[2019-05-03 09:55] LABS: INR 2.8 (0.9-1.1); Prothrombin Time 26.9 Seconds (9.0-12.0)
[2019-05-03 09:56] LABS: BUN Creatinine Ratio 6.9 (10-20); Calcium 8.3 mg/dl (8.5-10.1); Creatinine Clr Calc Pharmacy 11.9 ml/min; Est GFR (African American) 10.7; Est GFR (Non-African American) 9.3; Potassium 2.8 mmol/L (3.5-5.1)
[2019-05-03 10:03] LABS: Mean Platelet Volume 11.2 fL (7.4-10.4); Platelet Count 123 K/uL (130-400); Platelet Estimate Decreased (Normal)
[2019-05-03] MEDS: OXYCODONE HCL IR 5 MG TAB (IMMEDIATE RELEASE) PO PRN ×2 (11:35→21:26)
[2019-05-03] MEDS ORDERED: ONDANSETRON 4 MG TAB PO ONE (12:22)
[2019-05-03] MEDS ORDERED: ONDANSETRON 4 MG TAB PO PRN (12:31)
--- NOTE | 2019-05-03 14:16 | Hospitalist Progress Note ---
Date of Service May 03, 2019 Assessment & Plan (1) Sacral decubitus ulcer: Possible Sepsis on admission with elevated lactate and pro calcitonin level Immunocompromised patient, chronic steroid Use CT abd/pelvis showed moderate subcutaneous edema within the right posterior abdominal wall and left flank. This could be due to prior soft tissue contusion. Mild subcutaneous edema/fat stranding at the level the sacrum. However, no definite soft tissue ulceration or underlying bony destruction to suggest osteomyelitis. Small bilateral pleural effusions persist. Mild congestive change on the background of chronic interstitial thickening. This has improved. Cholecystectomy. No definite bowel wall thickening or obstruction. Mild ileus. Mildly distended bladder. Blood culture no growth Wound Cx grew Morganella Received IV daptomycin discontinued Continued IV Zosyn and changed to oral Cefdinir from today-to continue for a total of 4 week Continue daily wound care Wound provider on board, no debridement required. Due to bridging and location of the wound patient is not a good candidate for wound vac Continue conservative treatment with aquacel ag Case discussed with ID and recommended to continue Cefdinir to complete 4 weeks course of abx She was provided with a new mattress and was advised to have frequent postural change to avoid continued pressure on sacrum Advised to participate more in physical therapy Leukocytosis Possible related to sacral decubitus ulcer CT scan of the pelvis did not show any osteomyelitis Could be secondary to use of Megace Chest x-ray did not show any pneumonia No fever and no chills Continue monitor CBC Anorexia Vxcaxbhmrdtoyw-acm-ipuum renal disease, antibiotic and current illness Continue Megace Continue Boost supplement Supratherapeutic INR INR: 9.4>7.1>> 2.2 Received Vitamin K Continue coumadin INR 2.8 today Monitor PT/INR Chronic diastolic heart failure Volume Overload on presentation Last ECHO showed 60-65% Continue HD on MWF Will continue monitor closely Hyponatremia Hypochloremia Due to Volume overload No change in mental status Sodium 131 today Had HD done Continue monitor BMP Sick sinus syndrome S/P PPM On Metoprolol Continue coumadin daily ESRD Anemia of Chronic disease S/P Insertion of Perm Catheter Had HD done today on Dialysis MWF Hypokalemia K 2.8 today Just had HD done today Will monitor BMP Hypertension BP stable Amlodipine, hydralazine on hold Continue monitor BP Hyperlipidemia Will resume statin since dapto was discontinued H/O Pituitary tumor S/P Surgery Seizure disorder Continue Keppra Hyperglycemia likely steroid-induced HbA1C:4.7 DVT Px: Coumadin CODE STATUS Full Code Disposition Family unable to take care of the patient Discharge to placement to SNF today Subjective Pt was seen and examined Lying in bed with no distress Pt said that she felt nauseated during HD today She said that Zofran provided some relief She said that she feels tired Denies any chest pain, palpitation and SOB Physical Exam Physical Exam: General- No acute distress Head- atraumatic Eyes- PERRL, EOMI, ENT- oropharynx clear Neck- supple, no JVD Lungs- Diminished BS Heart- regular rhythm; no murmur Abdomen- normal bowel sounds, soft, nontender Extremities- no calf tenderness, + edema, + vascular access device perm cath in right chest Neuro- alert, oriented. PERRL, EOMI; no facial palsy; no dysarthria Skin- warm & dry Results & Data Vital Signs (Past 12 Hours) Vital Signs Temp Pulse Pulse Pulse Resp BP BP 05/03/19 13:03 36.4 C L 70 70 114/64 114/64 05/03/19 13:00 63 94/51 L 05/03/19 12:40 65 129/57 L 05/03/19 12:25 69 116/48 L 05/03/19 12:20 76 88/43 L 05/03/19 12:05 70 105/46 L 05/03/19 12:00 71 88/41 L 05/03/19 11:40 70 115/41 L 05/03/19 11:20 73 109/53 L 05/03/19 11:00 68 111/52 L 05/03/19 10:40 70 93/45 L 05/03/19 10:20 70 102/52 L 05/03/19 10:00 69 97/49 L 05/03/19 09:40 70 107/55 L 05/03/19 09:32 36.3 C L 76 76 105/56 L 05/03/19 07:55 71 05/03/19 07:46 36.6 C 66 20 105/63 05/03/19 03:09 36.5 C 70 23 101/69 Pulse Ox 05/03/19 13:03 05/03/19 13:00 05/03/19 12:40 05/03/19 12:25 05/03/19 12:20 05/03/19 12:05 05/03/19 12:00 05/03/19 11:40 05/03/19 11:20 05/03/19 11:00 05/03/19 10:40 05/03/19 10:20 05/03/19 10:00 05/03/19 09:40 05/03/19 09:32 05/03/19 07:55 05/03/19 07:46 96 05/03/19 03:09 93
[2019-05-03] MEDS ORDERED: POTASSIUM CHLORIDE 20 MEQ TABCR PO STA (14:31)
[2019-05-03] MEDS: WARFARIN SOD 1 MG TAB PO SCH (15:54)
[2019-05-03] MEDS: CEFDINIR 300 MG CAP PO SCH (15:55)
[2019-05-03 18:20] LABS: BUN Creatinine Ratio 5.6 (10-20); Creatinine Clr Calc Pharmacy 20.5 ml/min; Est GFR (African American) 20.9
--- NOTE | 2019-05-03 19:35 | Nephrology Progress Note ---
Date of Service May 03, 2019 Assessment & Plan (1) ESRD (end stage renal disease) on dialysis: unfortunately no renal recovery since NADIA in February and now esrd; catheter was placed 04/23 after other fell out 04/22 -Next hemodialysis on May 06 or his clinical needs dictate: She has been tolerating much lower fluid removal targets, today achieved 1.5 L UF -hyponatremia reflects progressive chronic volume overload for her -- will improve w/ dialysis -daily bmp -cont 1.2L FR (2) Anemia of chronic disease: check hgb q24 hrs; has dropped some; t stn 24% on 04/23 -epo w/ HD (3) Sacral decubitus ulcer: per primary service and wound team (4) Thrombocytopenia: >50% drop this admission; running dialysis heparin free -plts have not rebounded -likeliest bone marrow suppression from abtx -cont daily cbc Subjective Seen on rounds this evening. She had to come off of dialysis 30 minutes early due to nausea and abdominal pain. This is been a recurring pattern. She has been having stuttering abdominal pain off and on dialysis. Currently feels tired, no appetite, short of breath, no uncontrolled pain in her sacral area; still with marked diarrhea though rectal tube is been removed Review of Systems Review of Systems: All systems reviewed & are unremarkable except as noted in HPI & below Physical Exam Constitutional: well developed and well nourished; no acute distress (on RA) Eyes: EOM intact bilaterally ENMT: Ears: no external ear abnormality Nose: no external nose abnormality Mouth: + dry oral mucous membranes Neck: no nuchal rigidity Respiratory: normal respiratory effort Auscultation: lungs clear to auscultation bilaterally and + diminished lung sounds Cardiovascular: Rate/Rhythm: regular rate and regular rhythm Extremities: + edema (1+ BLE) Gastrointestinal (Abdomen): Inspection/Auscultation: normal bowel sounds Percussion/Palpation: abdomen soft; abdomen nontender Musculoskeletal: Extremities: strength 5/5 throughout Skin: no rashes, warm and dry Dusky and mildly cyanotic hands and fingers Neurologic: Moves all extremities, fluent though limited speech Psychiatric: Orientation: alert, oriented to person and oriented to place Affect: + depressed affect and + flat affect Insight: + limited insight Judgement: + limited judgement Results & Data Vital Signs (Past 12 Hours) Vital Signs Temp Pulse Pulse Pulse Resp BP BP 05/03/19 15:33 35.8 C L 57 L 20 100/54 L 05/03/19 13:03 36.4 C L 70 70 114/64 05/03/19 13:00 63 94/51 L 05/03/19 12:40 65 129/57 L 05/03/19 12:25 69 116/48 L 05/03/19 12:20 76 88/43 L 05/03/19 12:05 70 105/46 L 05/03/19 12:00 71 88/41 L 05/03/19 11:40 70 115/41 L 05/03/19 11:20 73 109/53 L 05/03/19 11:00 68 111/52 L 05/03/19 10:40 70 93/45 L 05/03/19 10:20 70 102/52 L 05/03/19 10:00 69 97/49 L 05/03/19 09:40 70 107/55 L 05/03/19 09:32 36.3 C L 76 76 105/56 L 05/03/19 07:55 71 05/03/19 07:46 36.6 C 66 20 BP Pulse Ox 05/03/19 15:33 97 05/03/19 13:03 114/64 05/03/19 13:00 05/03/19 12:40 05/03/19 12:25 05/03/19 12:20 05/03/19 12:05 05/03/19 12:00 05/03/19 11:40 05/03/19 11:20 05/03/19 11:00 05/03/19 10:40 05/03/19 10:20 05/03/19 10:00 05/03/19 09:40 05/03/19 09:32 05/03/19 07:55 05/03/19 07:46 105/63 96 Laboratory Results 05/03/19 09:26 05/03/19 17:33
[2019-05-03 20:28] LABS: Calcium 8.1 mg/dl (8.5-10.1)
[2019-05-03] MEDS ORDERED: POTASSIUM CHLORIDE 20 MEQ TABCR PO ONE (20:30)
[2019-05-04] MEDS: BRINZOLAMIDE (AZOPT) OPS 10 ML BTL OPB SCH (07:37)
[2019-05-04] MEDS: levETIRAcetam 500 MG TAB PO SCH (07:37)
[2019-05-04] MEDS: METOPROLOL TARTRATE 50 MG TAB PO SCH (07:37)
[2019-05-04] MEDS: BRIMONIDINE TARTRATE 0.2% 5ML OPB SCH (07:37)
[2019-05-04] MEDS: MEGESTROL ACETATE SUSP 400 MG/10 ML UDC PO SCH (07:38)
[2019-05-04 08:24] LABS: Mean Corpuscular Hgb Conc 29.2 g/dL (32-36); Nucleated RBC # (auto) 0.59 K/uL (0-0); Nucleated RBC % (auto) 3.7 %
[2019-05-04 08:36] LABS: Hematocrit (blood only) 31.8 % (37-47); Hemoglobin 9.3 g/dL (12.0-16.0); Mean Corpuscular Hemoglobin 25.9 pg (25-34); Mean Corpuscular Volume 88.6 fL (80-100); RDW Coefficient of Variation 21.6 % (11.5-14.5); RDW Standard Deviation 68.7 fL (36.4-46.3); Red Blood Count 3.59 M/uL (4.2-5.4); White Blood Count 15.96 K/uL (4.8-10.8)
[2019-05-04 08:42] LABS: BUN Creatinine Ratio 6.1 (10-20); Calcium 8.4 mg/dl (8.5-10.1); Creatinine Clr Calc Pharmacy 13.8 ml/min; Est GFR (African American) 15.5; Est GFR (Non-African American) 13.4; Potassium 3.6 mmol/L (3.5-5.1)
[2019-05-04 08:44] LABS: Prothrombin Time 34.5 Seconds (9.0-12.0)
[2019-05-04 08:48] LABS: Platelet Count 80 K/uL (130-400); Platelet Estimate Decreased (Normal)
[2019-05-04] MEDS ORDERED: predniSONE 10 MG TABLET PO SCH (09:00)
[2019-05-04 09:04] LABS: INR 3.7 (0.9-1.1)
--- NOTE | 2019-05-04 11:59 | Hospitalist Progress Note ---
Date of Service May 04, 2019 Assessment & Plan (1) Sacral decubitus ulcer: Possible Sepsis on admission with elevated lactate and pro calcitonin level Immunocompromised patient, chronic steroid Use CT abd/pelvis showed moderate subcutaneous edema within the right posterior abdominal wall and left flank. This could be due to prior soft tissue contusion. Mild subcutaneous edema/fat stranding at the level the sacrum. However, no definite soft tissue ulceration or underlying bony destruction to suggest osteomyelitis. Small bilateral pleural effusions persist. Mild congestive change on the background of chronic interstitial thickening. This has improved. Cholecystectomy. No definite bowel wall thickening or obstruction. Mild ileus. Mildly distended bladder. Blood culture no growth Wound Cx grew Morganella Received IV daptomycin discontinued Continued IV Zosyn and changed to oral Cefdinir from today-to continue for a total of 4 week Continue daily wound care Wound provider on board, no debridement required. Due to bridging and location of the wound patient is not a good candidate for wound vac Continue conservative treatment with aquacel ag Case discussed with ID and recommended to continue Cefdinir to complete 4 weeks course of abx Ok with ID to give Cefdinir every other day, and after HD on the day of dialysis She was provided with a new mattress and was advised to have frequent postural change to avoid continued pressure on sacrum Advised to participate more in physical therapy Leukocytosis Possible related to sacral decubitus ulcer or could be secondary to Megace CT scan of the pelvis did not show any osteomyelitis Chest x-ray did not show any pneumonia No fever and no chills Continue monitor CBC Anorexia [id number] renal disease, antibiotic and current illness Continue Megace Continue Boost supplement Encourage pt to increase diet intake Hypoglycemia Does not seems to be acurate Not on any oral DM med or insulin Asymptomatic Accucheck showed glucose 12,..., 15 stat Glucose concepcion and was 99 Stable Supratherapeutic INR INR: 9.4>7.1>> 2.2 Received Vitamin K Will hold coumadin today INR 3.7 today Monitor PT/INR Chronic diastolic heart failure Volume Overload on presentation Last ECHO showed 60-65% Continue HD on MWF Will continue monitor closely Anemia Hgb improved to 9.1 today Monitor CBC Hyponatremia Hypochloremia Due to Volume overload No change in mental status Sodium 134 today Had HD done Continue monitor BMP Sick sinus syndrome S/P PPM On Metoprolol Stable ESRD Anemia of Chronic disease S/P Insertion of Perm Catheter Last HD was on monday on Dialysis MWF Hypokalemia K 3.6 today Continue monitor BMP Hypertension BP stable Amlodipine Will d/c hydralazine on discharge Continue monitor BP Hyperlipidemia Will resume statin since dapto was discontinued H/O Pituitary tumor S/P Surgery Seizure disorder Continue Keppra Hyperglycemia likely steroid-induced HbA1C:4.7 DVT Px: Will hold today dose coumadin, INR 3.7 today CODE STATUS Full Code Disposition Family unable to take care of the patient Discharge to placement to SNF today Subjective Pt was seen and examined Lying in bed with no distress Her diarrhea improved She continues to have a poor appetite She was able to drink her boost this morning She denies any abdominal pain, chest pain, palpitation and SOB Physical Exam Physical Exam: General- No acute distress Head- atraumatic Eyes- PERRL, EOMI, ENT- oropharynx clear Neck- supple, no JVD Lungs- Diminished BS Heart- regular rhythm; no murmur Abdomen- normal bowel sounds, soft, nontender Extremities- no calf tenderness, + edema, + vascular access device perm cath in right chest Neuro- alert, oriented. PERRL, EOMI; no facial palsy; no dysarthria Skin- warm & dry Results & Data Vital Signs (Past 12 Hours) Vital Signs Temp Pulse Pulse Pulse Pulse Pulse Resp 05/04/19 11:06 36.5 C 75 18 05/04/19 10:17 36.7 C 70 89 65 70 18 05/04/19 10:12 70 05/04/19 09:46 65 05/04/19 07:48 36.7 C 70 18 05/04/19 05:12 84 05/04/19 03:41 36.4 C L 68 16 BP BP Pulse Ox 05/04/19 11:06 100/58 L 93 05/04/19 10:17 100/54 L 136/73 90 05/04/19 10:12 05/04/19 09:46 136/73 05/04/19 07:48 92/54 L 90 05/04/19 05:12 92/50 L 05/04/19 03:41 90/63 L 94
[2019-05-04] MEDS: GLUCOSE 10 TABS/TUBE PO PRN (12:04)
[2019-05-04] MEDS ORDERED: DEXTROSE 50% 50 ML SYRINGE IV ONE ×2 (12:09→12:14)
--- NOTE | 2019-05-05 08:22 | Discharge Summary ---
Date of Service May 04, 2019 Admission HPI Per Admitting Provider History obtained from patient and records. Medical history significant for chronic diastolic heart failure (EF 60 to 65%, TTE 2018), VHD (severe MR/TR mild AR), pulmonary hypertension as per records, SSS status post PPM on Coumadin, hypertension, hyperlipidemia, ESRD on HD, chronic arthritis on prednisone, past tobacco abuse, pituitary tumor status post surgery, history of seizure disorder, chronic anemia (baseline hemoglobin 9-10) Recent confinement February 21-2018 sepsis secondary to pneumonia. Hemodialysis initiated during confinement. During confinement, stage III pressure sacral ulcer noted. Onset of sacral wound around October 2018 after possible shingles rash as per documentation. Patient discharged to [facility] for rehab from the hospital. Patient discharged home 04/02/2019. Stage II pressure sore on the sacrum with weeping serous fluid and blisters as per home health nurse exam last week. Limited mobility at home as per records with patient spending most of her time on the recliner. not able to clean wound as well, especially problematic when patient has a bowel movement soiling sacral wound. Worsening sacral wound as per patient the last week with generalized weakness, poor appetite.. No fever, no chills. No chest pain. Usual shortness of breath. No cough symptoms. Patient requested to be brought to ER for further evaluation of wound. Patient also feels her is not able to take care of her anymore. At the ER, patient received daptomycin, Zosyn, and clindamycin for wound infection. 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 Admission Exam Per Admitting Provider GENERAL: uncomfortable, anxious, no respiratory distress SKIN: Pallor , warm HEENT: Pale palpebral conjunctivae, no ptosis, dry buccal mucosa NECK : Supple, no tenderness CHEST : CTA, no tenderness HEART : RRR, systolic murmur ABDOMEN: Some distention, nontender BACK ; ulcerated wound, sacrum with foul-smelling drainage; minimal low back tenderness EXTREMITIES : Minimal LE swelling, no LE tenderness, no other conspicuous deformities noted NEUROLOGIC : Coherent, no facial asymmetry, intention tremors, no other gross focality Principal Diagnosis Sacral decubitus ulcer Chronic diastolic heart failure Hyponatremia ESRD Hypokalemia Hypoglycemia Anemia Discharge Exam General- No acute distress Head- atraumatic Eyes- PERRL, EOMI, ENT- oropharynx clear Neck- supple, no JVD Lungs- Diminished BS Heart- regular rhythm; no murmur Abdomen- normal bowel sounds, soft, nontender Extremities- no calf tenderness, + edema, + vascular access device perm cath in right chest Neuro- alert, oriented. PERRL, EOMI; no facial palsy; no dysarthria Skin- warm & dry Discharge Data Allergies Allergy/AdvReac Type Severity Reaction Status Date / Time phenytoin Allergy Intermediate HIVES AND Verified 04/20/19 18:19 MOUTH ULCERS codeine AdvReac Mild VOMITTING Verified 04/20/19 18:19 Bactrim AdvReac Unknown "FEELS Verified 10/23/18 12:53 LIKE KNIVES ARE IN MY HEAD" hydrochlorothiazide AdvReac Unknown SEE COMMENT Verified 04/20/19 18:19 sulfamethoxazole AdvReac Unknown "FEELS Verified 04/20/19 18:19 LIKE KNIVES ARE IN MY HEAD" trimethoprim AdvReac Unknown "FEELS Verified 04/20/19 18:19 LIKE KNIVES ARE IN MY HEAD" Dust Allergy Mild SINUS Uncoded 04/20/19 18:19 INFECTIONS Consultations 04/20/19 19:55 ED Decision to Admit Stat 04/20/19 21:34 Consult Wound Care Provider Routine 04/20/19 22:07 Consult Case Management - Discharge Planning Routine Consult Nephrology Routine 04/22/19 09:18 Consult Vascular Surgery Routine 04/23/19 08:56 Consult Infectious Diseases Routine Procedures Performed Operation Date: 04/23/19 09:25 Actual Procedures p Insertion of Perm Catheter, Right Internal Jugular Approach, Ultrasound Localization Of Right Internal Jugular Vein, Fluoroscopy for Positioning, Moderate Sedation from 09:55-10:38(Right) - Max Sifuentes MD Ordered Studies 04/20/19 20:12 CT abd pelvis wo con Stat 04/23/19 07:13 US guide vascular access Routine 04/23/19 08:00 EV cvc insrt tunnel wo prt/auditor appraiser Routine 04/30/19 11:56 CT pelvis wo con Routine XR chest 1V portable HISTORY: SEPSIS COMPARISON: Chest 03/05/2019. FINDINGS: No pneumothorax. No pleural effusions. There are low lung volumes. Prior cholecystectomy. Left sided dual-chamber pacemaker. The heart remains mildly enlarged. There is mild central pulmonary vascular congestion without overt edema. This has improved in the interval. Right jugular dual-lumen catheter terminates at the proximal SVC. There is a right shoulder prosthesis. IMPRESSION: Cardiomegaly with interval improvement in the mild pulmonary vascular congestion. ACT 112: Negative or not required by law. Electronically signed by: Rajesh Medina M.D. 04/20/2019 6:24 PM Dictated: 04/20/191822 Transcribed: 04/20/191822 ABDOMEN AND PELVIS CT WITHOUT CONTRAST CT DOSE: 639.53 mGy.cm HISTORY: eval the sacrum/buttock for deep wound infection TECHNIQUE: Multiaxial CT images of the abdomen and pelvis were performed without contrast. A dose lowering technique was utilized adhering to the principles of ALARA. COMPARISON STUDY: Abdomen and pelvis CT 03/03/2019. FINDINGS: Pacemaker wires are noted. Small bilateral pleural effusions persist. Mild interlobular septal thickening within the lung bases as well as mild inter stitial thickening. This favors mild congestive change on the background of chronic interstitial thickening. No pneumoperitoneum. No pneumatosis. No suspicious lytic or blastic osseous lesions. No destructive lesion seen within the sacrum to suggest osteomyelitis. Moderate subcutaneous edema within the right posterior abdominal wall and left flank. There is mild subcutaneous fat stranding/edema at the sacrum. However, there is no soft tissue ulceration or abscess identified. Cholecystectomy. The unenhanced liver, spleen, adrenal glands, and kidneys are unremarkable. No renal or ureteral stones. No hydronephrosis. No retroperitoneal lymphadenopathy. Mild calcified plaque within the normal caliber abdominal aorta. The uterus and adnexa are unremarkable. The bladder is mildly distended. No bladder wall thickening. Colonic diverticulosis. No bowel wall thickening or obstruction. A few mildly dilated gas and fluid- filled loops of large and small bowel. No transition point identified. This f avors a mild ileus. Normal appendix. IMPRESSION: 1. Moderate subcutaneous edema within the right posterior abdominal wall and left flank. This could be due to prior soft tissue contusion. 2. Mild subcutaneous edema/fat stranding at the level the sacrum. However, no definite soft tissue ulceration or underlying bony destruction to suggest osteomyelitis. 3. Small bilateral pleural effusions persist. 4. Mild congestive change on the background of chronic interstitial thickening. This has improved. 5. Cholecystectomy. 6. No definite bowel wall thickening or obstruction. 7. Mild ileus. 8. Mildly distended bladder. ACT 112: Negative or not required by law. Electronically signed by: Rajesh Medina M.D. 04/20/2019 9:23 PM Dictated: 04/20/192114 Transcribed: 04/20/192114 SINGLE VIEW CHEST CLINICAL HISTORY: Pneumonia. FINDINGS: An AP, portable, upright chest radiograph is compared to study dated 04/20/2019. The examination is degraded by portable technique and patient rotation . A 2-lead cardiac pacemaker is unchanged in position, as is a right internal jugular central venous catheter. The heart is enlarged noting atherosclerotic calcification of the thoracic aorta. There is pulmonary vascular congestion. There are small pleural effusions with bibasilar consolidation. No pneumothorax is seen. The skeletal structures are osteopenic. The bony thorax is grossly intact. A right shoulder arthroplasty is in place. IMPRESSION: 1. Cardiomegaly with evidence of congestive failure. 2. Small pleural effusions with bibasilar consolidation. ACT 112: Negative or not required by law. Electronically signed by: Richard Wynn M.D. 04/29/2019 3:23 PM Dictated: 04/29/19 1522 Transcribed: 04/29/19 1522 Study: CT pelvis HISTORY: Infection: COMPARISON: 04/20/2019 FINDINGS: Soft tissue ulceration dorsal to the sacrococcygeal junction and inferior coccygeal segments. No evidence for bony destructive process. No evidence for well-defined abscess or collection L there is geographic cellulitis extending over a region approximately 6 cm. The remainder of the bony pelvis is remarkable for considerable degenerative changes throughout. IMPRESSION: 1. Soft tissue cellulitis with a soft tissue ulceration posterior to the sacrococcygeal region. 2. No evidence for bony destructive process or osteomyelitis. 3. Focal 6 cm regional area of cellulitis primarily involving the subcutaneous fat. 4. Considerable degenerative change of all remaining bony structures. Electronically signed by: Kushal Orlando M.D. 04/30/2019 1:30 PM Dictated: 04/30/19 1303 Transcribed: 04/30/19 1303 Hospital Course (1) Sacral decubitus ulcer: Possible Sepsis on admission with elevated lactate and pro calcitonin lev el Immunocompromised patient, chronic steroid Use CT abd/pelvis showed moderate subcutaneous edema within the right posterior abdominal wall and left flank. This could be due to prior soft tissue contusion. Mild subcutaneous edema/fat stranding at the level the sacrum. However, no definite soft tissue ulceration or underlying bony destruction to suggest osteomyelitis. Small bilateral pleural effusions persist. Mild congestive change on the background of chronic interstitial thickening. This has improved. Cholecystectomy. No definite bowel wall thickening or obstruction. Mild ileus. Mildly distended bladder. Blood culture no growth Wound Cx grew Morganella Received IV daptomycin discontinued Continued IV Zosyn and changed to oral Cefdinir from today-to continue for a total of 4 week Continue daily wound care Wound provider on board, no debridement required. Due to bridging and location of the wound patient is not a good candidate for wound vac Continue conservative treatment with aquacel ag Case discussed with ID and recommended to continue Cefdinir to complete 4 weeks course of abx Ok with ID to give Cefdinir every other day, and after HD on the day of dialysis She was provided with a new mattress and was advised to have frequent postural change to avoid continued pressure on sacrum Advised to participate more in physical therapy Leukocytosis Possible related to sacral decubitus ulcer or could be secondary to Megace CT scan of the pelvis did not show any osteomyelitis Chest x-ray did not show any pneumonia No fever and no chills Continue monitor CBC Anorexia [id number] renal disease, antibiotic and current illness Continue Megace Continue Boost supplement Encourage pt to increase diet intake Hypoglycemia Does not seems to be acurate Not on any oral DM med or insulin Asymptomatic Accucheck showed glucose 12,..., 15 stat Glucose concepcion and was 99 Stable Supratherapeutic INR INR: 9.4>7.1>> 2.2 Received Vitamin K Will hold coumadin today INR 3.7 today Monitor PT/INR Chronic diastolic heart failure Volume Overload on presentation Last ECHO showed 60-65% Continue HD on MWF Will continue monitor closely Anemia Hgb improved to 9.1 today Monitor CBC Hyponatremia Hypochloremia Due to Volume overload No change in mental status Sodium 134 today Had HD done Continue monitor BMP Sick sinus syndrome S/P PPM On Metoprolol Stable ESRD Anemia of Chronic disease S/P Insertion of Perm Catheter Last HD was on monday on Dialysis MWF Hypokalemia K 3.6 today Continue monitor BMP Hypertension BP stable Amlodipine Will d/c hydralazine on discharge Continue monitor BP Hyperlipidemia Will resume statin since dapto was discontinued H/O Pituitary tumor S/P Surgery Seizure disorder Continue Keppra Hyperglycemia likely steroid-induced HbA1C:4.7 DVT Px: Will hold today dose coumadin, INR 3.7 today CODE STATUS Full Code Disposition Family unable to take care of the patient Discharge to placement to SNF today Total Time Total Time Spent Total Time Spent (In Minutes): 35 minutes Total Time Includes: Examination of the Patient, Discharge Planning, Medication Reconciliation, Communication With Other Providers and Other Discharge Plan Discharge Items Patient Disposition: Transfer [facility] Reason For Visit: HYPONATREMIA, SOB, WOUND INFECTION Discharge Diagnosis: Sacral decubitus ulcer Chronic diastolic heart failure Hyponatremia ESRD Hypokalemia Hypoglycemia Anemia Activity: Resume your previous activity Non-emergency contact: Primary Care Provider and [employer] Solution Manager Consultant Call non-emergency contact if: you have any medication questions and your temperature is above 101 Follow-up/Referrals: Wilfredo Liang MD [Primary Care Provider] - Diet: Dialysis Renal Addtl Attending Provider Instructions: Follow up with your primary care provider Continue physical and occupational therapy Follow up with nephrology Follow up with infectious disease Continue dialysis (next dialysis on Monday ) Follow up with wound care clinic Continue wound care with aquacel ag every other day Monitor PT/INR with the coumadin clinic Complete the course of the antibiotic with cefdinir to complete a total of 30 days course (Cefdinir to be given every other day; and on the day of dialysis to be given after dialysis) Please have frequent postural change every 1-2 hr to avoid continuing pressure on sacrum. Keep area clean and dry with urine and feces. Check BMP within 1 week to monitor electrolytes Check CBC within 1 week to monitor hemoglobin Check INR tomorrow (Monday ) Please hold today dose of coumadin Hydralazine and Amlodipine discontinued due to low blood pressure Monitor blood pressure (if blood pressure starts to increase, please resume Amlodipine and hydralazine) Continue Boost supplement three times a day Encourage patient to increase her protein intake to help with the healing process Pending Studies at Discharge: No Stand-Alone Forms: My [facility] Skilled Items Patient informed of condition?: Yes DNR: No Discharge Level of Care: Skilled Communicable Disease: No Discharge Prognosis: Stable Lines: None Urinary Catheter: No Medications and DC Order Prescriptions: New ondansetron HCl 4 mg Tablet 4 mg PO Q8H PRN (Reason: nausea and vomiting) Qty: 30 RF: 0 Desenex 2 % Powder 1 applic EXT PRN PRN (Reason: rash ) 30 Days Qty: 43 RF: 0 cefdinir 300 mg capsule 300 mg PO Q OTHER DAY 21 Days Qty: 11 RF: 0 megestrol [Megace ES] 625 mg/5 mL suspension 5 ml PO DAILY Qty: 150 RF: 0 Continued fexofenadine [Lulu Allergy] 180 mg Tablet 180 mg PO DAILY PRN (Reason: Allergy Symptoms) RF: 0 metoprolol tartrate 50 mg Tablet 50 mg PO BID Qty: 60 RF: 0 warfarin 1 mg tablet 1 mg PO QPM RF: 0 atorvastatin 20 mg Tablet 20 mg PO QAM RF: 0 trazodone 50 mg Tablet 50 mg PO HS PRN (Reason: Sleep) RF: 0 levetiracetam 500 mg Tablet 500 mg PO BID RF: 0 cholecalciferol (vitamin D3) [Vitamin D3] 1,000 unit Capsule 1,000 unit PO QAM RF: 0 omeprazole 20 mg Tablet,Delayed Release (Dr/Ec) 20 mg PO QAM RF: 0 prednisone 10 mg tablet 10 mg PO DAILY RF: 0 brinzolamide-brimonidine 1-0.2 % Drops,Suspension 1 drp OPB BID RF: 0 Changed amlodipine [Norvasc] 5 mg tablet 2.5 mg PO BID Qty: 0 RF: 0 Discontinued hydralazine 25 mg tablet 12.5 mg PO BID Qty: 30 RF: 0 Discharge Orders: Discharge Order (Routine); Ordered 05/04/19 Ordered By: Doug Sifuentes Admission Data Admit Date/Time: 04/20/19 21:17 Attending Provider: Doug Sifuentes Admit Provider: Paulie Guerra Primary Care Provider: Wilfredo Liang Other Providers: [facility] ; Paulie Guerra ; Marc Hutchinson ; Nora Hannon ; Vince Tate ; Sagrario Castañeda ; Yessi Nathan Japheth E. ; Max Sifuentes ; Elise Barrett ; Naif Skelton ; [facility] ; [place] ; [facility], ; [facility] [place] ; Hannah Jaramillo Other Interventions: Discharge Summary Assessment (RN) Last Done: 05/04/19 10:17 DC Date/Time DO NOT enter until pt leaves facility: 05/04/19 15:00
== END 2019-05-04 15:00 | DRG 871 ==
LOC: ED 16:41 → 2W 21:17 → SUATTDRO 21:17 → 2W 21:30 → 2N 04-21 22:08